=== PATIENT | female | born 1965 | race Caucasian/White ===

== ENCOUNTER 2017-01-19 21:37 | Inpatient (IN) | payer OTHER ==
[2017-01-19] MEDS ORDERED: IPRATROPIUM-ALBUTEROL 3 ML NEB INHALATION STA (22:46)
[2017-01-19] MEDS ORDERED: SODIUM CHLORIDE 0.9% 1,000 ML BAG ONE (22:50)
[2017-01-20] MEDS ORDERED: SODIUM CHLORIDE 0.9% 1,000 ML BAG ONE (03:30)
[2017-01-20] MEDS ORDERED: VANCOMYCIN 1,000 MG VIAL ONE (03:30)
[2017-01-20] MEDS ORDERED: SODIUM CHLORIDE 0.9% 500 ML BAG ONE (03:30)
[2017-01-20] MEDS ORDERED: VANCOMYCIN 500 MG VIAL IVPB ONE (03:30)
[2017-01-20] MEDS ORDERED: IPRATROPIUM-ALBUTEROL 3 ML NEB INHALATION PRN ×2 (05:00→10:44)
[2017-01-20 06:03] LABS: ALT 52 U/L (9-52); AST 38 U/L (14-36); Alkaline Phosphatase 126 U/L (38-126); Anion Gap 15 mmol/L; Blood Urea Nitrogen 11 mg/dL (7-17); Calcium 9.3 mg/dL (8.4-10.2); Carbon Dioxide 25 mmol/L (22-30); Chloride 101 mmol/L (98-107); Glucose 131 mg/dL (74-99); Non-African American GFR(MDRD) >60 (>60 ml/min/1.73 sqM); Potassium 4.3 mmol/L (3.5-5.1); Sodium 141 mmol/L (137-145); Total Bilirubin 0.7 mg/dL (0.2-1.3); Total Protein 8.1 g/dL (6.3-8.2)
[2017-01-20 06:30] LABS: Prothrombin Time 10.3 sec (9.0-12.0)
[2017-01-20] MEDS: LEVOTHYROXINE 100 MCG TAB PO SCH (06:41)
--- NOTE | 2017-01-20 06:41 | XR ---
EXAM: XR Chest, 1 View. CLINICAL HISTORY: Reason: SHORTNESS OF BREATH TECHNIQUE: Frontal view of the chest. COMPARISON: No relevant prior studies available. FINDINGS: Lungs: Diffuse airspace opacities likely representing pulmonary edema versus an inflammatory or infectious process. Consolidation of the left lung base which may represent pleural effusion and atelectasis versus pneumonia. Pleural space: See above. Heart: Unremarkable. No cardiomegaly. Mediastinum: Unremarkable. Bones/joints: Unremarkable. IMPRESSION: 1. Diffuse airspace opacities likely representing pulmonary edema versus an inflammatory or infectious process. 2. Consolidation of the left lung base which may represent pleural effusion and atelectasis versus pneumonia.
[2017-01-20 06:55] LABS: Creatine Kinase 91 U/L (30-135)
[2017-01-20 06:58] LABS: Basophils # (A) 0.1 k/uL (0-0.2); Basophils % (A) 0 %; CH 28.7; CHCM 32.8; Eosinophils # (A) 0.5 k/uL (0-0.7); Eosinophils % (A) 3 %; HCT 38.1 % (34.0-46.0); HDW 2.73; HGB 12.7 gm/dL (11.4-16.0); Luc # (Auto) 0.36; Luc % (Auto) 2; Lymphocytes # (A) 1.9 k/uL (1.0-4.8); Lymphocytes % (A) 11 %; MCH 29.4 pg (25.0-35.0); MCHC 33.3 g/dL (31.0-37.0); MCV 88.2 fL (80.0-100.0); Mean Platelet Volume 7.1; Monocytes % (A) 6 %; Neutrophils # (A) 13.2 k/uL (1.3-7.7); Neutrophils % (A) 78 %; RBC 4.32 m/uL (3.80-5.40); RDW 13.9 % (11.5-15.5); WBC 16.9 k/uL (3.8-10.6); WBC (Perox) 17.19
[2017-01-20 07:01] LABS: Appearance,Urine Clear (Clear); Bilirubin,Urine Negative (Negative); Glucose,Urine (UA) Negative (Negative); Ketones,Urine Negative (Negative); Leukocyte Esterase,Urine Moderate (Negative); Mucus,Urine Rare /hpf; Nitrite,Urine Negative (Negative); Particle Count 4354; Protein,Urine 1+ (Negative); RBC,Urine 2 /hpf (0-5); Specific Gravity,Urine 1.021 (1.001-1.035); Squamous Epithelial Cell,Urine 3 /hpf (0-4); UA Billing (MACRO vs. MICRO) MICRO; WBC,Urine 4 /hpf (0-5)
[2017-01-20 07:08] LABS: Creatine Kinase MB 0.6 ng/mL (0.0-2.4); Troponin I <0.012 ng/mL (0.000-0.034)
[2017-01-20] MEDS ORDERED: IV VANCOMYCIN PER PHARMACY 1 EACH MISC MISCELLANE ONE (07:15)
[2017-01-20] MEDS ORDERED: PIPERACILLIN-TAZOBACTAM 3.375 GM in DEXTROSE/WATER 1 50ML.BAG IVPB SCH (08:00)
[2017-01-20] MEDS ORDERED: VANCOMYCIN 2,000 MG in SODIUM CHLORIDE 0.9% 500 ML IVPB SCH (09:00)
--- NOTE | 2017-01-20 10:39 | XR ---
EXAMINATION TYPE: XR chest 2V DATE OF EXAM: 01/20/2017 10:19 AM HISTORY: Pneumonia. REFERENCE: Previous study dated 01/19/2017. FINDINGS: There is a left lingular and lower lobe opacity. This has worsened from previous. There is patchy airspace disease in the right. The heart is obscured. I could not exclude a small left effusio n. IMPRESSION: WORSENING LEFT-SIDED INFILTRATE.
[2017-01-20] MEDS: IPRATROPIUM-ALBUTEROL 3 ML NEB INHALATION SCH ×3 (12:01→19:52)
[2017-01-20] MEDS: AZITHROMYCIN 500 MG TAB PO SCH (12:08)
[2017-01-20] MEDS: cefTRIAXone 2,000 MG in SODIUM CHLORIDE 0.9% 100 ML IVPB SCH (12:08)
--- NOTE | 2017-01-20 12:10 | HP ---
DATE OF ADMISSION: The patient is a very pleasant 51-year-old female who came in with complaints of shortness of breath, which started about 3 to 4 days ago along with cough, greenish sputum production and fevers and patient never checked her temperature. Patient has orthopnea for long time because of her sleep apnea, does use CPAP machine. Patient does have history of asthma as well, morbidly obese and some restrictive lung disease. Patient was found to have infiltrate on the left side. There may be a pleural effusion with a pneumonic process as well. I am obtaining an ultrasound of the chest because I cannot quantify the pleural effusion from the chest x-ray. Patient denied any dysuria. Patient denied any nausea or vomiting and urinalysis is not significant. Patient was found to have elevated lactic acid as well. Patient is admitted for severe sepsis. Antibiotics were started in the form of Zosyn. I am changing it to Rocephin and azithromycin. Patient will be started on [address] Rueda will be consulted for sleep apnea issue as well as pleural effusion probably will need a pleural tap. In the meantime, I will get an ultrasound of the chest. REVIEW OF SYSTEMS: CONSTITUTIONAL: No fever, no malaise, no fatigue. HEENT: No recent visual problems or hearing problems. Denied any sore throat. CARDIOVASCULAR: No chest pain, orthopnea, PND, no palpitations, no syncope. RESPIRATORY: As described in HPI. GASTROINTESTINAL: No diarrhea, no nausea, no vomiting, no abdominal pain. Normoactive bowel sounds. NEUROLOGICAL: No headaches, no weakness, no numbness. HEMATOLOGICAL: Denies any bleeding or petechiae. GENITOURINARY: Denies any burning micturition, frequency, or urgency. MUSCULOSKELETAL/RHEUMATOLOGICAL: Denies any joint pain, swelling, or any muscle pain. ENDOCRINE: Denies any polyuria or polydipsia. The rest of the 14 point review of systems is negative. Home medications include: 1. Zafirlukast. 2. Loratadine and pseudoephedrine combination. 3. Levothyroxine. 4. Fluticasone salmeterol. 5. Fluticasone nasal spray. 6. Albuterol inhaler. PAST MEDICAL HISTORY: Significant for sleep apnea, morbid obesity, hypothyroidism, and asthma. SOCIAL HISTORY: Denied any smoking, alcohol abuse or any drug abuse. FAMILY HISTORY: Significant for hypertension in family. PHYSICAL EXAMINATION: GENERAL: Morbidly obese. Alert and oriented x3. HEENT: Pupils are round and equally reacting to light. EOMI. No scleral icterus. No conjunctival pallor. Normocephalic, atraumatic. No pharyngeal erythema. No thyromegaly. CARDIOVASCULAR: S1 and S2 present. No murmurs, rubs, or gallops. LUNG EXAMINATION: Patient does have minimal expiratory wheezing bilaterally, fairly good air entry to bilateral lung myers. The patient does have some bronchophony, egophony in the left lower lung field and crackles in the left lower lung field, mostly in the left posterior lung bases. ABDOMEN: Soft, nontender, nondistended, normoactive bowel sounds. No palpable organomegaly. MUSCULOSKELETAL: No joint swelling or deformity. EXTREMITIES: No cyanosis, clubbing, or pedal edema. NEUROLOGICAL: Gross neurological examination did not reveal any focal deficits. SKIN: No rashes. LABORATORY DATA: CBC, CMP are abnormal for elevated WBC count of 16,900. Lactic acid is 2.7, now has come down to 1.0. I will cut down the IV fluids. Chest x-ray as mentioned above. ASSESSMENT AND PLAN: 1. Acute hypoxic respiratory failure secondary to pneumonia with pleural effusion and severe sepsis secondary to pneumonia most probably pneumococcal in origin. Patient is on antibiotics as mentioned above. Patient will be started on inhalational treatments. Patient also has asthma exacerbation secondary to pneumonia. 2. Acute asthma exacerbation. Patient appears to have chronic intermittent asthma. 3. Sleep apnea. Patient stopped using CPAP machine will get opinion from pulmonology regarding the newer CPAP machines with which patient may be complimented at that time. 4. Hypothyroidism. Continue the levothyroxine. I will obtain a TSH level. 5. Obesity counseling was provided. 6. Lactic acidosis secondary to severe sepsis from pneumonia. Since her lactic acidosis improved, will cut down the IV fluids to 75 mL per hour. I am also obtaining BNP but I do not believe patient has congestive heart failure. The patient does not have any pedal edema or JVD or S3 on exam. Chest x-ray is not consistent with congestive heart failure either.
[2017-01-20] MEDS ORDERED: ACETAMINOPHEN TAB 325 MG TAB PO PRN (12:14)
[2017-01-20] MEDS: SODIUM CHLORIDE 0.9% 1,000 ML IV SCH (12:33)
--- NOTE | 2017-01-20 12:41 | P.CNPUL ---
History of Present Illness Consult date: 01/20/17 Requesting physician: Randi Yanes Reason for consult: dyspnea, abnormal CXR/CT Chief complaint: Shortness of breath History of present illness: This is a very pleasant 51-year-old female patient who follows with Dr. husain while at [address] [place] [address]. The patient resides in [place]. She has a past medical history of hypothyroidism, morbid obesity, chronic bronchial asthma , obstructive sleep apnea but not compliant with her CPAP at home to the old fitting mask. Her last sleep study was approximate 5 years ago. She is maintained on Singulair, Claritin, Accolate, Advair and albuterol in the outpatient setting. She is a lifelong nonsmoker. She states for the past several days she had had increasing shortness of breath and dyspnea with minimal exertion. She has had a cough of greenish yellow sputum. No hemoptysis. No fever, chills or night sweats. She has been afebrile. Her chest x-ray revealed diffuse airspace opacities suggestive of pulmonary edema versus inflammatory/infectious process. There is also consolidation in the left lung base suspicious for either pleural effusion or atelectasis/pneumonia. An ultrasound of the left chest is pending. Maintaining good O2 saturations in the 90s on 2 L/m per nasal cannula. Minimal leukocytosis at 16.9. Initial lactic acid 2.7 currently 1.0. ProBNP level 114, her influenza screen is negative. Group A rapid strep is negative. Presently, she is seen sitting up in bed. She is awake and alert in no acute distress. She states she is still quite dyspneic on minimal exertion. No significant chest discomfort. No pleuritic type pain. Review of Systems 14 point review of systems was conducted. All negative other than as mentioned in the HPI. Past Medical History Past Medical History: Asthma, Sleep Apnea/CPAP/BIPAP (Noncompliant with CPAP due to ill-fitting mask.), Thyroid Disorder Medications and Allergies Home Medications Medication Instructions Recorded Confirmed Type Albuterol Inhaler [Ventolin Hfa 2 puff INHALATION RT-Q6H PRN 01/19/17 01/19/17 History Inhaler] Albuterol Nebulized [Ventolin 2.5 mg INHALATION RT-Q6H PRN 01/19/17 01/19/17 History Nebulized] Fluticasone Nasal [place] [Flonase 1 spray EA NOSTRIL DAILY 01/19/17 01/19/17 History Nasal [place]] Fluticasone/Salmeterol [Advair 1 puff INHALATION RT-BID 01/19/17 01/19/17 History 500-50 Diskus] Levothyroxine Sodium [Synthroid] 200 mcg PO DAILY 01/19/17 01/19/17 History Loratadine-Pseudoeph 5-120 mg 1 tab PO DAILY 01/19/17 01/19/17 History [Claritin-D 12 HR] Zafirlukast 20 mg PO BID 01/19/17 01/19/17 History Allergies Allergy/AdvReac Type Severity Reaction Status Date / Time egg AdvReac Unknown Verified 01/19/17 22:26 milk AdvReac Unknown Verified 01/19/17 22:26 Physical Exam Vitals: Vital Signs Temp Pulse Pulse Resp BP Pulse Ox 01/20/17 12:10 92 01/20/17 12:02 86 01/20/17 08:00 86 16 01/20/17 07:00 97.7 F 86 16 115/78 94 L 01/20/17 06:07 100 01/20/17 06:00 100 Intake and Output 01/19/17 01/20/17 01/20/17 22:59 06:59 14:59 Intake Total 290 Balance 290 Intake: Intake, IV Titration 50 Amount Piperacillin-Tazobactam 3 50 .375 gm In Dextrose/Water 1 50ml.bag @ 12.5 mls/hr IVPB Q8HR [facility] Rx#: [id number] Oral 240 Other: Voiding Method Toilet # Voids 2 2 Weight 141 kg 139.281 kg Patient Weight 01/21/17 06:59 Weight 139.281 kg GENERAL EXAM: Morbidly obese. Alert, comfortable in no apparent distress. HEAD: Normocephalic. EYES: Normal reaction of pupils, equal size. NOSE: Clear with pink turbinates. THROAT: No erythema or exudates. NECK: No masses, no JVD. CHEST: No chest wall deformity. LUNGS: Equal air entry with basilar crackles more so on the left, diminished.r. CVS: S1 and S2 normal with no audible mumurs, regular rhythm. ABDOMEN: Obese, normal bowel sounds, no guarding or rigidity. SPINE: No scoliosis or deformity SKIN: No rashes CENTRAL NERVOUS SYSTEM: No focal deficits, tone is normal in all 4 extremities. Extremities: There is trace peripheral edema. No clubbing, no cyanosis. Peripheral pulses are intact. Results - Laboratory Findings CBC and BMP: 01/19/17 22:40 01/19/17 22:40 PT/INR, D-dimer PT 10.3 sec (9.0-12.0) 01/19/17 22:40 INR 1.0 (<1.1) 01/19/17 22:40 - Diagnostic Findings Chest x-ray: image reviewed Assessment and Plan Plan: Impression: #1 Dyspnea secondary to suspected community-acquired pneumonia with reactive inflammatory response and left pleural effusion. #2 Acute exacerbation of moderate persistent chronic bronchial asthma. #3 Acute hypoxic respiratory failure secondary to above. #4 Obstructive sleep apnea with obesity/hypoventilation syndrome, noncompliant with CPAP in the outpatient setting. #5 Morbid obesity. #6 Hypothyroidism. #7 Lactic acidosis, recovered status post fluid resuscitation. Plan: The patient was seen and evaluated by Dr. Rueda. Her chest x-ray and labs were reviewed. There may be some component of left pleural effusion and we are awaiting ultrasound results to determine if it is significant enough to undergo a thoracentesis. In the interim we'll continue with her current antibiotics, bronchodilators, Symbicort and Singulair. She remains on antibiotics in the form of ceftriaxone and azithromycin. We will provide her with an incentive spirometer and encourage cough and deep breathing exercises. The patient is offered an appointment with Dr. Ray at the sleep [facility] to either undergo a sleep titration study and to evaluate her current CPAP machine and headgear and find some that she is more comfortable with. She definitely has clinical features of the obstructive sleep apnea including suspected obesity/ hypoventilation syndrome and restrictive lung disease. She is encouraged regarding the importance of weight loss. She would benefit from pulmonary function testing to evaluate these and determine the severity of her asthma and make further recommendations regarding maintenance medications. Will increase her activity as tolerated. We'll continue to follow. Time with Patient: Greater than 30
--- NOTE | 2017-01-20 13:33 | US ---
EXAMINATION TYPE: US chest DATE OF EXAM: 01/20/2017 1:25 PM COMPARISON: CXR in PACS CLINICAL HISTORY: right side pleural effusion. No significant fluid was noted on the right. EXAM MEASUREMENTS: Left Pleural Effusion fluid pocket: 2.9 cm Left skin to fluid thickness: 5.9 cm Left side marked for possible thoracentesis outside the dept. Pulmonologists are able to review the images in the patient?s EMR. Large pt body habitus IMPRESSIONS: MINIMAL LEFT-SIDED PLEURAL EFFUSION.
[2017-01-20] MEDS: SYMBICORT 160-4.5 MCG INHALER INHALATION SCH (19:52)
[2017-01-20] MEDS ORDERED: MONTELUKAST 10 MG TAB PO SCH (21:00)
[2017-01-21] MEDS: SODIUM CHLORIDE 0.9% 1,000 ML IV SCH (04:01)
[2017-01-21] MEDS: LEVOTHYROXINE 100 MCG TAB PO SCH (06:08)
[2017-01-21] MEDS: IPRATROPIUM-ALBUTEROL 3 ML NEB INHALATION SCH ×2 (07:20→10:56)
[2017-01-21] MEDS: SYMBICORT 160-4.5 MCG INHALER INHALATION SCH (07:20)
[2017-01-21 07:32] VITALS: BP 148/95; RESP 18; TEMP 97.1
[2017-01-21 07:35] LABS: Glucose,Whole Blood 102 mg/dL (75-99)
[2017-01-21] MEDS: cefTRIAXone 2,000 MG in SODIUM CHLORIDE 0.9% 100 ML IVPB SCH (07:46)
[2017-01-21] MEDS ORDERED: VANCOMYCIN TROUGH DUE 1 EACH MISC MISCELLANE ONE (08:00)
[2017-01-21] MEDS: AZITHROMYCIN 500 MG TAB PO SCH (08:28)
[2017-01-21] MEDS ORDERED: NON-FORMULARY DRUG (Levothyroxine Sodium [Synthroid] 200 MCG) PO SCH (09:00)
[2017-01-21 10:59] VITALS: PULSE 88
--- NOTE | 2017-01-21 11:40 | P.PN ---
Subjective This is a very pleasant 51-year-old female patient who follows with Dr. husain while at [address]. The patient resides in [place]. She has a past medical history of hypothyroidism, morbid obesity, chronic bronchial asthma , obstructive sleep apnea but not compliant with her CPAP at home to the old fitting mask. Her last sleep study was approximate 5 years ago. She is maintained on Singulair, Claritin, Accolate, Advair and albuterol in the outpatient setting. She is a lifelong nonsmoker. She states for the past several days she had had increasing shortness of breath and dyspnea with minimal exertion. She has had a cough of greenish yellow sputum. No hemoptysis. No fever, chills or night sweats. She has been afebrile. Her chest x-ray revealed diffuse airspace opacities suggestive of pulmonary edema versus inflammatory/infectious process. There is also consolidation in the left lung base suspicious for either pleural effusion or atelectasis/pneumonia. An ultrasound of the left chest is pending. Maintaining good O2 saturations in the 90s on 2 L/m per nasal cannula. Minimal leukocytosis at 16.9. Initial lactic acid 2.7 currently 1.0. ProBNP level 114, her influenza screen is negative. Group A rapid strep is negative. Presently, she is seen sitting up in bed. She is awake and alert in no acute distress. She states she is still quite dyspneic on minimal exertion. No significant chest discomfort. No pleuritic type pain. The patient is seen again today 01/21/2017 in follow-up on the regular medical floor. She is awake and alert in no acute distress. She is breathing easier today as compared to yesterday. Yesterday's ultrasound of the chest did not reveal any significant pleural effusion. No plans for thoracentesis. She is maintaining good O2 saturations in the high 90s on 2 L/m per nasal cannula. She has been afebrile. Objective - Vital Signs Vital signs: Vital Signs Temp 97.1 F L 01/21/17 07:00 Pulse 88 01/21/17 11:07 Resp 18 01/21/17 08:00 BP 148/95 01/21/17 07:00 Pulse Ox 97 01/21/17 07:22 Intake & Output 01/20/17 01/21/17 01/21/17 18:59 06:59 18:59 Intake Total 990 1025 480 Balance 990 1025 480 Weight 139.281 kg 139.281 kg Intake: Intake, IV Titration 750 825 Amount Piperacillin-Tazobactam 3 50 .375 gm In Dextrose/Water 1 50ml.bag @ 12.5 mls/hr IVPB Q8HR [facility] Rx#: [id number] Sodium Chloride 0.9% 1, 450 825 000 ml @ 75 mls/hr IV . [id number] [facility] Rx#:[id number] Vancomycin 2,000 mg In 150 Sodium Chloride 0.9% 500 ml @ 167 mls/hr IVPB Q12HR [facility] Rx#:[id number] cefTRIAXone 2,000 mg In 100 Sodium Chloride 0.9% 100 ml @ 100 mls/hr IVPB Q24HR [facility] Rx#:[id number] Oral 240 200 480 Other: Voiding Method Toilet Toilet Toilet # Voids 6 3 3 # Bowel Movements 1 - Exam GENERAL EXAM: Morbidly obese. Alert, comfortable in no apparent distress. HEAD: Normocephalic. EYES: Normal reaction of pupils, equal size. NOSE: Clear with pink turbinates. THROAT: No erythema or exudates. NECK: No masses, no JVD. CHEST: No chest wall deformity. LUNGS: Equal air entry with basilar crackles more so on the left, diminished.r. CVS: S1 and S2 normal with no audible mumurs, regular rhythm. ABDOMEN: Obese, normal bowel sounds, no guarding or rigidity. SPINE: No scoliosis or deformity SKIN: No rashes CENTRAL NERVOUS SYSTEM: No focal deficits, tone is normal in all 4 extremities. Extremities: There is trace peripheral edema. No clubbing, no cyanosis. Peripheral pulses are intact. - Labs CBC & Chem 7: 01/19/17 22:40 01/19/17 22:40 Labs: Abnormal Lab Results - Last 24 Hours (Table) 01/21/17 Range/Units 07:34 POC Glucose (mg/dL) 102 H (75-99) mg/dL Assessment and Plan Plan: Impression: #1 Dyspnea secondary to suspected community-acquired pneumonia with reactive inflammatory response and left pleural effusion. #2 Acute exacerbation of moderate persistent chronic bronchial asthma. #3 Acute hypoxic respiratory failure secondary to above. #4 Obstructive sleep apnea with obesity/hypoventilation syndrome, noncompliant with CPAP in the outpatient setting. #5 Morbid obesity. #6 Hypothyroidism. #7 Lactic acidosis, recovered status post fluid resuscitation. Plan: The patient was seen and evaluated by Dr. Rueda. She is stable from the pulmonary standpoint. She could be discharged home later today after being evaluated for possible need for home oxygen. If she maintains O2 saturations greater than 88% O2 would not be required. She'll complete her course of antibiotics. Continue Symbicort, Singulair and albuterol. She is offered an appointment in our office in 1-2 weeks' time we can repeat a chest x-ray then. She is however encouraged to call sooner with any recurrence of symptoms or any other questions or concerns.
--- NOTE | 2017-01-22 12:05 | DS ---
DATE OF ADMISSION: 01/20/2017 DATE OF DISCHARGE: 01/21/2017 This dictation is both progress note and discharge summary. 51-year-old admitted for left lower lobe pneumonia with parapneumonic effusion along with asthma exacerbation. Patient does have sleep apnea and also restrictive lung disease from morbid obesity. The patient is clinically doing well. We will ambulate the patient and if the patient is saturating well and does not get short of breath, patient will be discharged with one week of antibiotics. Patient has elevated TSH and normal T4. Patient is already on 200 mcg of levothyroxine. Patient may have sick euthyroid syndrome. We will need repeat TSH as an outpatient. REVIEW OF SYSTEMS: CARDIOVASCULAR: No chest pain, no orthopnea, no PND, no palpitations. PULMONARY: Denied any shortness of breath. No cough or hemoptysis. GASTROINTESTINAL: No diarrhea, nausea or vomiting. No abdominal pain. Normoactive bowel sounds. NEUROLOGIC: No headaches, no weakness, no numbness. Medications were reviewed. PHYSICAL EXAMINATION: Temperature 97.1, pulse of 88, respiratory rate of 18, blood pressure is 148/75, saturating at 97% on room air. GENERAL: The patient is alert and oriented x3, not in any acute distress. Well developed, well nourished. HEENT: Pupils are round and equally reacting to light. EOMI. No scleral icterus. No conjunctival pallor. Normocephalic, atraumatic. No pharyngeal erythema. No thyromegaly. CARDIOVASCULAR: S1 and S2 present. No murmurs, rubs, or gallops. PULMONARY: Patient continues to have bronchophony, egophony in the left lower lung field and patient's wheezing completely resolved at this point of time. ABDOMEN: Soft, nontender, nondistended, normoactive bowel sounds. No palpable organomegaly. MUSCULOSKELETAL: No joint swelling or deformity. EXTREMITIES: No cyanosis, clubbing, or pedal edema. NEUROLOGICAL: Gross neurological examination did not reveal any focal deficits. SKIN: No rashes. LABORATORY DATA: None available from today. ASSESSMENT AND PLAN: 1. Acute hypoxic respiratory failure secondary to pneumonia, parapneumonic effusion and fevers secondary to pneumonia. Patient's lactic acidosis, resolved. 2. Acute asthma exacerbation. Patient probably has chronic intermittent asthma. 3. Sleep apnea. Patient will follow with Dr. Rueda as an outpatient and will get another sleep study and her machine will be changed then. 4. Hypothyroidism with sick euthyroid syndrome presently. 5. Obesity leading to restrictive lung disease. 6. Lactic acidosis secondary to severe sepsis, which improved. Her discharge depends on her performance upon ambulation. Please refer to my depart summary for details of discharge medications. Activity as tolerated and patient will follow with Dr. Rueda in about a week. Cardiac diet. I spent greater than 35 minutes in total discharge process.
== END 2017-01-21 12:35 | disposition home or self-care (01) | DRG 871 ==
LOC: EC 21:37 → 5MS5E 01-20 00:18
PROVIDERS: ADMIT Hospitalist; ATTEND Hospitalist
DX: A41.9 Sepsis, unspecified organism (principal); J96.01 Acute respiratory failure with hypoxia; E87.2 Acidosis; J91.8 Pleural effusion in other conditions classified elsewhere; J18.9 Pneumonia, unspecified organism; J45.21 Mild intermittent asthma with (acute) exacerbation; E66.2 Morbid (severe) obesity with alveolar hypoventilation; Z68.43 Body mass index [BMI] 50.0-59.9, adult; R65.20 Severe sepsis without septic shock; R00.0 Tachycardia, unspecified; E07.81 Sick-euthyroid syndrome; E03.9 Hypothyroidism, unspecified; J98.4 Other disorders of lung; Z82.49 Family history of ischemic heart disease and other diseases of the circulatory system; Z91.012 Allergy to eggs; Z91.011 Allergy to milk products; Z71.3 Dietary counseling and surveillance; Z91.19 Patient's noncompliance with other medical treatment and regimen; Z90.710 Acquired absence of both cervix and uterus; Z63.79 Other stressful life events affecting family and household; Z79.51 Long term (current) use of inhaled steroids; Z79.899 Other long term (current) drug therapy
CPT/HCPCS: 71010; 71020; 76604; 80053; 81001; 82550; 82553; 83605; 83735; 83880; 84439; 84443; 84484; 85025; 85610; 87040; 87081; 87430; 87502; 94640; 94760; 96361; 96374; 99285

== ENCOUNTER 2017-03-18 08:20 | Inpatient (IN) | payer OTHER ==
[2017-03-18] MEDS ORDERED: SODIUM CHLORIDE 0.9% 500 ML IV STA (08:28)
[2017-03-18] MEDS ORDERED: ACETAMINOPHEN TAB 500 MG TAB PO STA (08:28)
[2017-03-18] MEDS ORDERED: SODIUM CHLORIDE 0.9% 1,000 ML IV STA (08:28)
[2017-03-18] MEDS ORDERED: cefTRIAXone 2,000 MG in SODIUM CHLORIDE 0.9% 100 ML IVPB STA (08:28)
[2017-03-18] MEDS ORDERED: SODIUM CHLORIDE 0.9% 1,000 ML IV ONE (08:32)
[2017-03-18] MEDS ORDERED: ONDANSETRON 4 MG/2 ML VIAL IVP STA (08:46)
[2017-03-18] MEDS ORDERED: ACETAMINOPHEN IV (For NPO) 1,000 MG in EMPTY BAG 1 BAG IVPB ONE (08:50)
[2017-03-18 09:04] LABS: CH 29.1; CHCM 33.7; HCT 38.2 % (34.0-46.0); HDW 2.69; MCH 29.6 pg (25.0-35.0); MCHC 34.1 g/dL (31.0-37.0); MCV 86.8 fL (80.0-100.0); Mean Platelet Volume 7.4; RBC 4.39 m/uL (3.80-5.40); RDW 14.3 % (11.5-15.5); WBC (Perox) 26.34
[2017-03-18 09:05] LABS: WBC 25.3 k/uL (3.8-10.6)
[2017-03-18 09:27] LABS: Appearance,Urine Clear (Clear); Bilirubin,Urine Negative (Negative); Glucose,Urine (UA) Negative (Negative); Ketones,Urine Negative (Negative); Leukocyte Esterase,Urine Negative (Negative); Nitrite,Urine Negative (Negative); Protein,Urine Negative (Negative); Specific Gravity,Urine 1.014 (1.001-1.035); UA Billing (MACRO vs. MICRO) CHEM; Urobilinogen,Urine <2.0 mg/dL (<2.0)
[2017-03-18] MEDS ORDERED: VANCOMYCIN 2,000 MG in SODIUM CHLORIDE 0.9% 500 ML IVPB STA (09:33)
--- NOTE | 2017-03-18 09:57 | XR ---
EXAMINATION TYPE: XR chest 1V portable DATE OF EXAM: 03/18/2017 COMPARISON: Chest x-ray January 20, 2017. HISTORY: Fever. TECHNIQUE: Single AP portable frontal upright view of the chest is obtained. FINDINGS: Exam is suboptimal secondary to artifact from overlying cooling blanket and patient's body habitus. In addition patient is rotated to right of midline. Low lung volumes are present. No suspici ous focal airspace opacity, pleural effusion, or pneumothorax is seen. Cardiomegaly is present. Visua lized osseous structures are intact. IMPRESSION: Suboptimal study, low lung volumes and cardiomegaly without suspicious acute pulmonary p rocess.
[2017-03-18 10:02] LABS: Add Differential Manual Differential
[2017-03-18 10:04] LABS: Nucleated Red Blood Cells 0 /100 WBC (0-0); Polychromasia Present; Total Cells Counted 100
[2017-03-18 10:27] LABS: ALT 27 U/L (9-52); AST 34 U/L (14-36); Alkaline Phosphatase 90 U/L (38-126); Anion Gap 12 mmol/L; Blood Urea Nitrogen 10 mg/dL (7-17); Calcium 9.2 mg/dL (8.4-10.2); Carbon Dioxide 20 mmol/L (22-30); Chloride 104 mmol/L (98-107); Glucose 128 mg/dL (74-99); Non-African American GFR(MDRD) >60 (>60 ml/min/1.73 sqM); Sodium 136 mmol/L (137-145); Total Bilirubin 1.8 mg/dL (0.2-1.3); Total Protein 7.7 g/dL (6.3-8.2)
[2017-03-18] MEDS ORDERED: IBUPROFEN 600 MG TAB PO STA (11:04)
--- NOTE | 2017-03-18 11:07 | ED ---
Fever HPI - General Chief Complaint: Fever Stated Complaint: vomiting/abdominal pain Time Seen by Provider: 03/18/17 08:32 Source: patient Mode of arrival: wheelchair Limitations: no limitations - History of Present Illness Initial Comments: Given years old female presents with weakness: On for 2 days, high fever or fever started yesterday she was quite hot and cold last night him denies any headache no neck stiffness denies any cough in 9 or bringing up any phlegm denies any abdominal pain no frequency urgency dysuria area denies any chest pain no shortness of breath arrival she was quite confused after at that point had her temperature was 104 once the temperature got better then now just GCS was 15 - Related Data Home Medications Medication Instructions Recorded Confirmed Albuterol Inhaler [Ventolin Hfa 2 puff INHALATION RT-Q6H PRN 01/19/17 03/18/17 Inhaler] Albuterol Nebulized [Ventolin 2.5 mg INHALATION RT-Q4H PRN 01/19/17 03/18/17 Nebulized] Fluticasone Nasal [place] [Flonase 1 spray EA NOSTRIL DAILY 01/19/17 03/18/17 Nasal [place]] Fluticasone/Salmeterol [Advair 1 puff INHALATION RT-BID 01/19/17 03/18/17 500-50 Diskus] Levothyroxine Sodium [Synthroid] 200 mcg PO DAILY 01/19/17 03/18/17 Loratadine-Pseudoeph 5-120 mg 1 tab PO DAILY 01/19/17 03/18/17 [Claritin-D 12 HR] Zafirlukast 20 mg PO BID 01/19/17 03/18/17 PARoxetine [Paxil] 40 mg PO DAILY 03/18/17 03/18/17 Allergies Allergy/AdvReac Type Severity Reaction Status Date / Time egg AdvReac Unknown Verified 03/18/17 11:19 milk AdvReac Unknown Verified 03/18/17 11:19 Review of Systems ROS Statement: Those systems with pertinent positive or pertinent negative responses have been documented in the HPI. ROS Other: All systems not noted in ROS Statement are negative. Past Medical History Past Medical History: Asthma, Sleep Apnea/CPAP/BIPAP, Thyroid Disorder History of Any Multi-Drug Resistant Organisms: None Reported Past Surgical History: Bladder Surgery, Hysterectomy Past Psychological History: No Psychological Hx Reported Smoking Status: Never smoker Past Alcohol Use History: None Reported Past Drug Use History: None Reported General Exam - General Exam Comments Initial Comments: General: The patient is awake and alert, is quite term altered mentally not able to answer any questions clearly and hollering for help and is saying repeatedly that I don't feel right Skin: Skin is warm and dry and no rashes or lesions are noted. Eye: Pupils are equal, round and reactive to light, extra-ocular movements are intact; there is normal conjunctiva bilaterally. Ears, nose, mouth and throat: There are moist mucous membranes and no oral lesions. Neck: The neck is supple, there is no tenderness Cardiovascular: There is a regular rate and rhythm. No murmur, rub or gallop is appreciated. Respiratory: To auscultation bilateral, no wheezing noticed, crackles at the bases Gastrointestinal: Soft, non-distended, non-tender abdomen without masses or organomegaly noted. There is no rebound or guarding present. Bowel sounds are unremarkable. Back: There is no tenderness to palpation in the midline. There is no obvious deformity. Musculoskeletal: Normal ROM, no tenderness, There is no pedal edema. There is no calf tenderness or swelling. No cords were appreciated. Neurological: CN II-XII intact, Cranial nerves III through XII are intact. There are no obvious motor or sensory deficits. Coordination appears grossly intact. Speech is normal. Psychiatric: Cooperative, appropriate mood & affect, normal judgment. He was quite confused on arrival at this time and her temperature was 104 after she got some Tylenol and fluids and GCS cleared up to 15 Limitations: no limitations Course Vital Signs 03/18/17 03/18/17 03/18/17 08:22 10:12 12:00 Temperature 104 F H 101.4 F H 98.8 F Pulse Rate 144 H 121 H 114 H Respiratory 22 20 18 Rate Blood Pressure 136/75 124/56 105/57 O2 Sat by Pulse 96 95 96 Oximetry 03/18/17 03/18/17 15:00 16:08 Temperature 97.8 F Pulse Rate 114 H Respiratory 18 Rate Blood Pressure 96/50 O2 Sat by Pulse 95 Oximetry CSF report was reviewed, noticed nucleated red cells were greater than 5 that makes the abnormal cell count, I plan to keep her on Vanco as directed by pharmacy as well as Rocephin 2 g IV twice a day 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 Hardy - Reevaluation(s) Reevaluation #2: 03/18/17 14:08 She developed time headache along with a fever this time and I decided he wanted to LP head CT is early normal white count is quite elevated this is to rule out bacterial meningitis 03/18/17 16:[address] Hardy about the plan of Rocephin and ankle he is okay with that we'll consult Dr. Perea infectious disease for possible meningitis Procedures - Lumbar Puncture Time Out Performed: Yes Indication for Procedure: headache, change in mental status Patient Position: right lateral decubitus Local Anesthetic Used: Lidocaine 1% Spinal Needle Gauge: 22G Spinal Needle Length: 3in Interspace Used: L4-L5 Fluid Initially Obtained: clear (Centering patient s headache LP was done, patient tolerated the procedure well there were no palpitations) Medical Decision Making - Lab Data Result diagrams: 03/18/17 08:42 03/18/17 08:42 Lab Results 03/18/17 03/18/17 03/18/17 Range/Units 08:42 08:42 08:42 WBC 25.3 H* (3.8-10.6) k/uL RBC 4.39 (3.80-5.40) m/uL Hgb 13.0 (11.4-16.0) gm/dL Hct 38.2 (34.0-46.0) % MCV 86.8 (80.0-100.0) fL MCH 29.6 (25.0-35.0) pg MCHC 34.1 (31.0-37.0) g/dL RDW 14.3 (11.5-15.5) % Plt Count 274 (150-450) k/uL Neutrophils % (Manual) 81.0 % Band Neutrophils % 1.0 % Lymphocytes % (Manual) 11.0 % Monocytes % (Manual) 5.0 % Eosinophils % (Manual) 2.0 % Neutrophils # (Manual) 20.7 H (1.3-7.7) k/uL Lymphocytes # (Manual) 2.8 (1.0-4.8) k/uL Monocytes # (Manual) 1.3 H (0-1.0) k/uL Eosinophils # (Manual) 0.5 (0-0.7) k/uL Nucleated RBCs 0 (0-0) /100 WBC Polychromasia Present Sodium 136 L (137-145) mmol/L Potassium 4.0 (3.5-5.1) mmol/L Chloride 104 (98-107) mmol/L Carbon Dioxide 20 L (22-30) mmol/L Anion Gap 12 mmol/L BUN 10 (7-17) mg/dL Creatinine 0.66 (0.52-1.04) mg/dL Est GFR (MDRD) Af Amer >60 (>60 ml/min/1.73 sqM) Est GFR (MDRD) Non-Af >60 (>60 ml/min/1.73 sqM) Glucose 128 H (74-99) mg/dL Plasma Lactic Acid Mic 3.0 H* (0.7-2.0) mmol/L Calcium 9.2 (8.4-10.2) mg/dL Total Bilirubin 1.8 H (0.2-1.3) mg/dL AST 34 (14-36) U/L ALT 27 (9-52) U/L Alkaline Phosphatase 90 (38-126) U/L Total Protein 7.7 (6.3-8.2) g/dL Albumin 4.1 (3.5-5.0) g/dL Urine Color Urine Appearance (Clear) Urine pH (5.0-8.0) Ur Specific [place] (1.001-1.035) Urine Protein (Negative) Urine Glucose (UA) (Negative) Urine Ketones (Negative) Urine Blood (Negative) Urine Nitrite (Negative) Urine Bilirubin (Negative) Urine Urobilinogen (<2.0) mg/dL Ur Leukocyte Esterase (Negative) CSF Tube Number CSF Volume CSF Appearance CSF Color CSF RBC (0-10) u/L CSF Tot Nucleated Cells (0-5) u/L CSF Glucose (40-70) mg/dL 03/18/17 03/18/17 03/18/17 Range/Units 08:55 12:27 14:10 WBC (3.8-10.6) k/uL RBC (3.80-5.40) m/uL Hgb (11.4-16.0) gm/dL Hct (34.0-46.0) % MCV (80.0-100.0) fL MCH (25.0-35.0) pg MCHC (31.0-37.0) g/dL RDW (11.5-15.5) % Plt Count (150-450) k/uL Neutrophils % (Manual) % Band Neutrophils % % Lymphocytes % (Manual) % Monocytes % (Manual) % Eosinophils % (Manual) % Neutrophils # (Manual) (1.3-7.7) k/uL Lymphocytes # (Manual) (1.0-4.8) k/uL Monocytes # (Manual) (0-1.0) k/uL Eosinophils # (Manual) (0-0.7) k/uL Nucleated RBCs (0-0) /100 WBC Polychromasia Sodium (137-145) mmol/L Potassium (3.5-5.1) mmol/L Chloride (98-107) mmol/L Carbon Dioxide (22-30) mmol/L Anion Gap mmol/L BUN (7-17) mg/dL Creatinine (0.52-1.04) mg/dL Est GFR (MDRD) Af Amer (>60 ml/min/1.73 sqM) Est GFR (MDRD) Non-Af (>60 ml/min/1.73 sqM) Glucose (74-99) mg/dL Plasma Lactic Acid Mic 1.6 (0.7-2.0) mmol/L Calcium (8.4-10.2) mg/dL Total Bilirubin (0.2-1.3) mg/dL AST (14-36) U/L ALT (9-52) U/L Alkaline Phosphatase (38-126) U/L Total Protein (6.3-8.2) g/dL Albumin (3.5-5.0) g/dL Urine Color Yellow Urine Appearance Clear (Clear) Urine pH 5.0 (5.0-8.0) Ur Specific [place] 1.014 (1.001-1.035) Urine Protein Negative (Negative) Urine Glucose (UA) Negative (Negative) Urine Ketones Negative (Negative) Urine Blood Negative (Negative) Urine Nitrite Negative (Negative) Urine Bilirubin Negative (Negative) Urine Urobilinogen <2.0 (<2.0) mg/dL Ur Leukocyte Esterase Negative (Negative) CSF Tube Number 4 CSF Volume 1.0 CSF Appearance Clear CSF Color Colorless CSF RBC 0 (0-10) u/L CSF Tot Nucleated Cells 6 H (0-5) u/L CSF Glucose 77 H (40-70) mg/dL Critical Care Time Total Critical Care Time: 30 Critical Care Time: On arrival his temperature was greater than 104 she had a clear decreased mentation or change in mental status he was not able to answer any questions clearly of fluids resuscitation was done a septic workup was for workup was started strong antibiotics were started right away, she'll definitely need admission at this point she is not a candidate for LP her mentation is GCS is 15 no neck stiffness, she had a pruritic him Rocephin 2 g IV along with the flank oh - IV brain CT is pending at this point if indicated will proceed with the lumbar puncture Disposition Clinical Impression: Fever, Change in mental status, Sepsis, Headache Disposition: ADMITTED IP TO THIS HOSP Referrals: Nonstaff,Physician [Primary Care Provider] - 1-2 days
--- NOTE | 2017-03-18 11:37 | CT ---
EXAMINATION TYPE: CT brain wo con DATE OF EXAM: 03/18/2017 HISTORY: Nauseated and vomiting CT DLP: 963.6 mGycm. Automated Exposure Control for Dose Reduction was Utilized. TECHNIQUE: CT scan of the head is performed without contrast. COMPARISON: None. FINDINGS: There is no acute intracranial hemorrhage or midline shift identified. Ventricles and sul ci are within normal limits in size. العلي-white matter differentiation is maintained. The globes are intact bilaterally. There is moderate mucosal thickening involving ethmoid sinuses bilaterally. The re is mild to moderate mucosal thickening involving bilateral sphenoid and inferior maxillary sinuses . There are nonformed frontal sinuses noted bilaterally. IMPRESSION: No acute intracranial hemorrhage or midline shift. Chronic paranasal sinus disease.
[2017-03-18 15:37] LABS: Glucose,CSF 77 mg/dL (40-70)
[2017-03-18 15:40] LABS: Appearance,CSF Clear
[2017-03-18] MEDS ORDERED: NALOXONE 0.4 MG/ML 1 ML VIAL IV PRN (16:31)
[2017-03-18] MEDS ORDERED: IBUPROFEN 600 MG TAB PO PRN (16:31)
[2017-03-18] MEDS ORDERED: HYDROmorphone 1 MG/ML 1 ML SYRINGE IV PRN (16:31)
[2017-03-18] MEDS ORDERED: IV VANCOMYCIN PER PHARMACY 1 EACH MISC MISCELLANE PRN (16:39)
[2017-03-18] MEDS: ACETAMINOPHEN TAB 500 MG TAB PO PRN (18:28)
[2017-03-18] MEDS ORDERED: ALBUTEROL INHALER 60 PUFF/8 GM INHALER INHALATION PRN (20:12)
[2017-03-18] MEDS ORDERED: TEMAZEPAM 15 MG CAP PO PRN (20:15)
[2017-03-18] MEDS: VANCOMYCIN 2,000 MG in SODIUM CHLORIDE 0.9% 500 ML IVPB SCH (20:22)
[2017-03-18] MEDS: cefTRIAXone 2,000 MG in SODIUM CHLORIDE 0.9% 100 ML IVPB SCH (20:22)
[2017-03-18] MEDS: MONTELUKAST 10 MG TAB PO SCH (22:25)
[2017-03-18] MEDS: PARoxetine 20 MG TAB PO SCH (22:26)
[2017-03-18] MEDS: ALBUTEROL NEBULIZED 2.5 MG/3 ML INHALATION PRN (22:48)
[2017-03-18] MEDS ORDERED: ALPRAZolam 0.25 MG TAB PO PRN (23:52)
[2017-03-18] MEDS: FLUTICASONE 50MCG/SPRAY NASAL 16GM EA NOSTRIL SCH (23:57)
[2017-03-19] MEDS: ACETAMINOPHEN TAB 500 MG TAB PO PRN ×5 (01:30→23:50)
[2017-03-19] MEDS: ALBUTEROL NEBULIZED 2.5 MG/3 ML INHALATION PRN ×5 (03:29→21:23)
[2017-03-19] MEDS: HEPARIN SODIUM,PORCINE 5,000 UNIT/ML 1 ML VIAL SQ SCH ×3 (04:51→20:36)
[2017-03-19] MEDS: PANTOPRAZOLE 40 MG TABLET PO SCH (06:09)
[2017-03-19] MEDS: VANCOMYCIN 2,000 MG in SODIUM CHLORIDE 0.9% 500 ML IVPB SCH ×2 (06:09→17:53)
[2017-03-19] MEDS: LEVOTHYROXINE 100 MCG TAB PO SCH (06:10)
[2017-03-19 06:43] LABS: CH 28.6; CHCM 32.7; HCT 36.2 % (34.0-46.0); HDW 2.76; HGB 12.2 gm/dL (11.4-16.0); MCH 29.6 pg (25.0-35.0); MCHC 33.6 g/dL (31.0-37.0); Mean Platelet Volume 7.4; RBC 4.11 m/uL (3.80-5.40); RDW 14.3 % (11.5-15.5); WBC (Perox) 39.59
[2017-03-19 06:54] LABS: WBC 36.1 k/uL (3.8-10.6)
--- NOTE | 2017-03-19 07:24 | XR ---
EXAMINATION TYPE: XR chest 2V DATE OF EXAM: 03/19/2017 COMPARISON: Chest x-ray from yesterday. HISTORY: Fever, history of asthma. TECHNIQUE: Frontal and lateral views of the chest are obtained. FINDINGS: Exam is suboptimal secondary to patient's body habitus. Low lung volumes are redemonstrate d. There is better visualized right hilar and left basilar opacities felt new from prior exam. Cardio megaly is redemonstrated. Visualized osseous structures are intact. IMPRESSION: New right hilar infiltrate and patchy left basilar atelectasis and/or infiltrate.
[2017-03-19 07:56] LABS: Add Differential Manual Differential
[2017-03-19 07:57] LABS: Nucleated Red Blood Cells 0 /100 WBC (0-0); Polychromasia Present; Total Cells Counted 100
[2017-03-19 08:10] LABS: ALT 33 U/L (9-52); AST 35 U/L (14-36); Alkaline Phosphatase 105 U/L (38-126); Anion Gap 12 mmol/L; Blood Urea Nitrogen 15 mg/dL (7-17); Calcium 9.1 mg/dL (8.4-10.2); Carbon Dioxide 22 mmol/L (22-30); Chloride 111 mmol/L (98-107); Glucose 98 mg/dL (74-99); Non-African American GFR(MDRD) >60 (>60 ml/min/1.73 sqM); Potassium 4.1 mmol/L (3.5-5.1); Sodium 145 mmol/L (137-145); Total Bilirubin 1.7 mg/dL (0.2-1.3); Total Protein 6.9 g/dL (6.3-8.2)
[2017-03-19] MEDS: SYMBICORT 160-4.5 MCG INHALER INHALATION SCH ×2 (08:29→21:23)
[2017-03-19] MEDS ORDERED: LORATADINE-PSEUDOEPH 5-120 MG 1 EACH TAB.ER.12H PO PRN (09:00)
[2017-03-19] MEDS: FLUTICASONE 50MCG/SPRAY NASAL 16GM EA NOSTRIL SCH ×3 (09:02→20:35)
[2017-03-19] MEDS: PARoxetine 20 MG TAB PO SCH ×3 (09:02→21:20)
[2017-03-19] MEDS ORDERED: RX INFO: IV CONTRAST WAS GIVEN 1 EACH MISC MISCELLANE PRN (10:50)
--- NOTE | 2017-03-19 11:43 | CT ---
EXAMINATION TYPE: CT chest w con DATE OF EXAM: 03/19/2017 COMPARISON: Chest x-ray from today and yesterday. HISTORY: Coughing up blood. Fever and sepsis. CT DLP: 1216.1 mGycm. Automated Exposure Control for Dose Reduction was Utilized. TECHNIQUE: CT scan of the thorax is performed following with IV Contrast, patient injected with 100 mL of Omnipaque 300. FINDINGS: LUNGS: Focal groundglass opacity anteriorly right upper lobe is seen on axial image 12. There are a dditional focal areas of groundglass opacity and consolidation posteriorly in the right upper lobe ne ar axial images 18 and 21 respectively Dense consolidation with air bronchograms involves the superio r posterior portion of left lower lobe. Lack of bronchograms inferiorly and centrally is noted making slightly more suspicious. Abrupt cut off is present of the smaller bronchi. This may reflect atelect atic changes there is subtle mediastinal shift felt present. Right middle lobe is clear. Some respira tory motion artifact is present. Patchy areas of opacity left lung apex suggests mild edema. No suspi cious consolidation is seen. Left lung base is clear. There is no pleural effusion or pneumothorax se en. The tracheobronchial tree is patent. MEDIASTINUM: There are no prominent thoracic lymph nodes. For reference there is right paratracheal lymph node measuring 1.5 x 1.1 cm on axial image 18 there are prominent but subcentimeter prevascular lymph nodes. There are suspected slightly enlarged right hilar and subcarinal lymph nodes. For refer ence subcarinal lymph node measures 2.0 x 1.1 cm on axial image 27 No pericardial effusion is seen. There is cardiomegaly with mild to moderate left ventricular dilatation. There is tortuous medial cou rse to bilateral common carotid arteries on axial image 1 posterior to the hypopharyngeal airway. OTHER: Liver is diffusely low dense consistent with fatty infiltration. There is 2.5 cm appearing cys t laterally mid to lower pole level left kidney on axial image 69. Mild multilevel spurring in the sp ine is present. IMPRESSION: Multifocal infiltrates right upper lobe on CT less well seen on x-ray. Dense consolidatio n involving right lower lobe is noted. Follow-up to resolution advised as more peripheral inferior me dial aspect shows lack of air bronchograms to rule out underlying mass. Would still favor obstructive atelectatic change. Reactive adenopathy right hilar, subcarinal, and paratracheal regions is noted.
[2017-03-19] MEDS: cefTRIAXone 2,000 MG in SODIUM CHLORIDE 0.9% 100 ML IVPB SCH ×2 (12:03→22:05)
--- NOTE | 2017-03-19 12:14 | P.CNPUL ---
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 The patient also has obstructive sleep apnea although she does not seem to be compliant to QUENTIN treatment. The patient was in hospital back in January for a left lung pneumonia for which she was seen by my partner, Dr. Peacock and the patient was treated successfully and the patient was discharged home. The patient is a lifetime nonsmoker. The patient came in yesterday to the ED for 2 days worth of increased fever although there was no documented temperature. The patient was feeling hot and cold. Denied having any headache or neck stiffness. In the emergency department the patient's temperature was all 4. Her initial [place] Coma Scale was 15 and later stage she became slightly obtunded. At that point, a lumbar puncture was done and the results were essentially negative. The patient was admitted to the hospital on a combination of Rocephin and vancomycin. Note that the initial white count was 25.3. The patient had a lactic acid of 3.0. The rest of the electrodes were within normal limits. Currently she is complaining of increased cough and congestion and mucus production. X-ray follow-up shows development of pulmonary infiltrates on the right suggestive an underlying pneumonia. The patient was admitted to the hospital. Subsequent white cell count is up to 36.1. The electrolytes remained within normal limits. The lactic acid is down to 2.2. Urinalysis is negative. Mental status improved significantly with fluid hydration and antibiotics. I reviewed the chest x-ray and was conversive the patient is having a pneumonia. Based on that I ordered a CAT scan of the chest in view of the recurrent nature of the pneumonia and the CAT scan showed multifocal infiltrates in the right upper lobe and there is a dense consolidation in the right lower lobe. The peripheral and inferior medial aspect of the right lower lobe pulmonary infiltrate has no air bronchogram and gives a masslike appearance. A still favor atelectasis/ consolidation. Reactive adenopathy in the right hilar inguinal and paratracheal area was noted. Review of Systems All systems: negative Constitutional: Denies chills, Denies fever Eyes: denies blurred vision, denies pain Ears, nose, mouth and throat: Denies headache, Denies sore throat Cardiovascular: Denies chest pain, Denies shortness of breath Respiratory: Denies cough Gastrointestinal: Denies abdominal pain, Denies diarrhea, Denies nausea, Denies vomiting Genitourinary: Denies dysuria, Denies hematuria Musculoskeletal: Denies myalgias Integumentary: Denies pruritus, Denies rash Neurological: Denies numbness, Denies weakness Psychiatric: Denies anxiety, Denies depression Endocrine: Denies fatigue, Denies weight change Past Medical History Past Medical History: Asthma, Sleep Apnea/CPAP/BIPAP, Thyroid Disorder Additional Past Medical History / Comment(s): Morbid obesity, obstructive sleep apnea, bronchial asthma, hypothyroidism, recent hospitalization for a left lung pneumonia and January 2017. History of Any Multi-Drug Resistant Organisms: None Reported Past Surgical History: Bladder Surgery, Hysterectomy Past Anesthesia/Blood Transfusion Reactions: No Reported Reaction Past Psychological History: Anxiety Smoking Status: Never smoker Past Alcohol Use History: None Reported Past Drug Use History: None Reported - Past Family History Mother Family Medical History: CVA/TIA, Diabetes Mellitus, Myocardial Infarction (MA) Medications and Allergies Home Medications Medication Instructions Recorded Confirmed Type Albuterol Inhaler [Ventolin Hfa 2 puff INHALATION RT-Q6H PRN 01/19/17 03/18/17 History Inhaler] Albuterol Nebulized [Ventolin 2.5 mg INHALATION RT-Q4H PRN 01/19/17 03/18/17 History Nebulized] Fluticasone Nasal [place] [Flonase 1 spray EA NOSTRIL DAILY 01/19/17 03/18/17 History Nasal [place]] Fluticasone/Salmeterol [Advair 1 puff INHALATION RT-BID 01/19/17 03/18/17 History 500-50 Diskus] Levothyroxine Sodium [Synthroid] 200 mcg PO DAILY 01/19/17 03/18/17 History Loratadine-Pseudoeph 5-120 mg 1 tab PO DAILY 01/19/17 03/18/17 History [Claritin-D 12 HR] Zafirlukast 20 mg PO BID 01/19/17 03/18/17 History PARoxetine [Paxil] 40 mg PO DAILY 03/18/17 03/18/17 History Allergies Allergy/AdvReac Type Severity Reaction Status Date / Time egg AdvReac Unknown Verified 03/18/17 11:19 milk AdvReac Unknown Verified 03/18/17 11:19 Physical Exam Vitals: Vital Signs Temp Pulse Pulse Resp BP BP Pulse Ox 03/19/17 08:30 88 03/19/17 08:15 88 100 03/19/17 04:43 98.4 F 03/19/17 04:00 100.3 F H 112 H 20 108/72 100 03/19/17 03:36 80 03/19/17 03:25 88 03/19/17 02:15 100.3 F H 03/19/17 00:00 97.9 F 97 18 85/48 97 03/18/17 22:52 80 03/18/17 22:41 80 03/18/17 20:00 97.9 F 100 18 89/62 98 03/18/17 18:46 97.8 F 95 18 110/55 96 03/18/17 18:19 95 18 110/55 96 03/18/17 18:18 97.9 F 100 20 89/62 98 03/18/17 16:08 97.8 F 03/18/17 15:00 114 H 18 96/50 95 Intake and Output 03/18/17 03/19/17 03/19/17 22:59 06:59 14:59 Intake Total 600 120 Balance 600 120 Intake: IV 600 Vancomycin 2,000 mg In 500 Sodium Chloride 0.9% 500 ml @ 167 mls/hr IVPB ONCE STA Rx#:[id number] cefTRIAXone 2,000 mg In 100 Sodium Chloride 0.9% 100 ml @ 100 mls/hr IVPB Q12HR [facility] Rx#:[id number] Oral 120 Other: Voiding Method Toilet # Voids 3 Weight 143.789 kg 140.4 kg Head exam was generally normal. There was no scleral icterus or corneal arcus. Mucous membranes were moist. Neck is short and supple and the patient has a Mallampati class IV.Neck was supple and without jugular venous distension, thyromegaly, or carotid bruits. Carotids were easily palpable bilaterally. There was no adenopathy. Lung sounds are diminished bilaterally otherwise clear. Breath sounds are slightly diminished motor the right lung base. Overall the heart sounds are distant.Cardiac exam revealed the PMI to be normally situated and sized. The rhythm was regular and no extrasystoles were noted during several minutes of auscultation. The first and second heart sounds were normal and physiologic splitting of the second heart sound was noted. There were no murmurs, rubs, clicks, or gallops. Abdomen is obese soft nontender. Organs cannot be accurately palpated.Examination of the extremities revealed easily palpable radial, femoral and pedal pulses. There was no cyanosis , clubbing There is +1 pitting edema. Results - Laboratory Findings CBC and BMP: 03/19/17 06:10 03/19/17 06:10 Abnormal lab findings: Abnormal Labs 03/18/17 03/18/17 03/18/17 08:42 08:42 08:42 WBC 25.3 H* Neutrophils # (Manual) 20.7 H Monocytes # (Manual) 1.3 H Sodium 136 L Chloride Carbon Dioxide 20 L Glucose 128 H Plasma Lactic Acid Mic 3.0 H* Total Bilirubin 1.8 H CSF Tot Nucleated Cells CSF Glucose 03/18/17 03/19/17 03/19/17 14:10 06:10 06:10 WBC 36.1 H* Neutrophils # (Manual) 31.8 H Monocytes # (Manual) 2.5 H Sodium Chloride 111 H Carbon Dioxide Glucose Plasma Lactic Acid Mic Total Bilirubin 1.7 H CSF Tot Nucleated Cells 6 H CSF Glucose 77 H 03/19/17 06:10 WBC Neutrophils # (Manual) Monocytes # (Manual) Sodium Chloride Carbon Dioxide Glucose Plasma Lactic Acid Mic 2.2 H* Total Bilirubin CSF Tot Nucleated Cells CSF Glucose - Diagnostic Findings Chest x-ray: image reviewed Assessment and Plan Plan: Assessment 1 acute sepsis secondary to a right lung pneumonia 2 right lung pneumonia, Multilobar involving the right upper lobe and the left lower lobe, please refer to the CAT scan of the chest. There is also some reactive lymphadenopathy. Doubt malignancy. 3 acute leukocytosis secondary to above 4 acute lactic acidosis, improving secondary to above 5 change in mental status secondary to sepsis, improved and the lumbar puncture is negative 6 morbid obesity 7 bronchial asthma 8 obstructive sleep apnea noncompliant to CPAP therapy 9 hypothyroidism Plan Cover this patient with a combination of Rocephin and Zithromax and vancomycin. Obtain sputum Gram stain and culture. Obtain blood culture. Follow-up chest x-ray to assess resolution of the right lung infiltrate. Blood cultures already been sent. Monitor mental status. Monitor white count. Monitor lactic acid levels. Will need the patient to bring her on CPAP for check and will hopefully get her more compliant with her was a treatment in addition. We' ll continue to follow.
[2017-03-19] MEDS ORDERED: AZITHROMYCIN 500 MG in SODIUM CHLORIDE 0.9% 250 ML IVPB SCH (12:15)
--- NOTE | 2017-03-19 12:34 | HP ---
DATE OF ADMISSION: 03/18/2017 CHIEF COMPLAINT: Fever and change in mental status. HISTORY OF PRESENT ILLNESS: This 51-year-old woman with a past medical history of multiple medical problems including asthma, sleep apnea, hypothyroidism, bladder surgery, anxiety being followed by primary physician in , was recently admitted with pneumonia, acute hypoxic respiratory failure, parapneumonic effusion, lactic acidosis. Patient improved significantly. Patient went home. The patient apparently went to have appointment with Dr. Rueda for sleep testing. Otherwise, currently the patient had fever on and off for the last 2 days. Patient had change in mental status. The patient did not have any headache initially. Currently the patient complains of mild headache. Temperature went up to 104. Patient came to [facility] and admitted for further evaluation and treatment. White count was elevated at 25.3, plasma lactic acid 3 indicating sepsis. The patient had lumbar puncture also. Protein is pending at this time. Glucose 776. Nuclear cells were noted. There is no chest pain, palpitation, hematochezia, melena at this time. The patient had snoring. PAST MEDICAL HISTORY: History of asthma, obstructive sleep apnea, history of recent pneumonia, history of hypothyroidism, history of bladder surgery, anxiety. Medications prior to admission include: 1. Zafirlukast 20 mg p.o. b.i.d. 2. Paxil 40 mg p.o. daily. 3. Claritin-D 1 p.o. daily. 4. Synthroid 200 mcg p.o. daily. 5. Advair 500/250 1 puff b.i.d. 6. Flonase one spray daily. 7. Ventolin 2.5 q.4 p.r.n. 8. Ventolin inhaler 2 puffs q.4 p.r.n. ALLERGIES: MILK. FAMILY HISTORY: History of CVA, TIA, diabetes mellitus, myocardial infarction the family. SOCIAL HISTORY: No history of smoking or alcohol intake. REVIEW OF SYSTEMS: ENT: No diminishing hearing or diminished vision. CARDIOVASCULAR: No angina or palpitations. RESPIRATORY: No coughing. GI: No nausea. : No dysuria. NERVOUS SYSTEM: No numbness or weakness. ALLERGY/IMMUNOLOGY: As mentioned earlier. HEMATOLOGY: No history of anemia. ENDOCRINE: No history of diabetes or hypothyroidism. CONSTITUTIONAL: As mentioned earlier. DERMATOLOGY: Negative. RHEUMATOLOGY: Negative. PSYCHIATRY: As mentioned earlier. PHYSICAL EXAMINATION: Patient is alert and oriented x3. Pulse is 95, blood pressure 110/55, respiration 18, temperature 97.8, pulse ox 97% on 2-L. HEENT: Conjunctivae normal. Mild facial puffiness present. NECK: No jugular venous distention. CARDIOVASCULAR: S1 and S2, muffled. RESPIRATORY: Breath sounds diminished at the bases. Bilateral scattered rhonchi and crackles. ABDOMEN: Soft, obese, nontender. No mass palpable. LEGS: Leg edema. NERVOUS SYSTEM: Higher function as mentioned. Cranial nerves II through XII grossly intact. Moves all four limbs. No focal motor sensory deficits. LYMPHATIC: No lymphadenopathy in the neck, axillae or groin. SKIN: No ulcer, rash or bleeding. Labs at this time are WBC 25.3 predominant neutrophils. Sodium 136. Glucose 120, plasma lactic acid 3, total bilirubin is 1.8. ASSESSMENT: 1. Fever, leukocytosis for evaluation, possible sepsis. 2. Hyponatremia. 3. Increased plasma lactic acid. 4. Increased bilirubin. 5. History of recent pneumonia with acute hypoxic respiratory failure and parapneumonic effusion. 6. Sleep apnea, possibly. 7. Morbid obesity, body mass index of 51.2. 8. History of bladder surgery. 9. Anxiety, not otherwise specified. 10. FULL CODE. RECOMMENDATIONS AND DISCUSSION: This 51-year-old woman who presented with multiple complex medical issues, we will monitor the patient closely. Continue the current medications. Continue with symptomatic treatment. Lumbar puncture has been done. Full report is awaited. Urine cultures. Empiric antibiotics initiated. Recommend infectious disease as well as consult with Dr. Ray regarding the follow-up of asthma and sleep apnea. Otherwise, guarded prognosis because of multiple complex medical issues. See orders for further details. DVT prophylaxis. Further recommendations to follow. Ensure oxygenation. Discussed with patient. Will obtain blood culture as well. Discussed with the patient who understands and agrees. APARNA
[2017-03-19] MEDS: HYDROcodone/APAP 5-325MG 1 EACH TAB PO PRN (13:22)
[2017-03-19] MEDS: LEVOFLOXACIN 750 MG TAB PO SCH (20:34)
[2017-03-19] MEDS: MONTELUKAST 10 MG TAB PO SCH (20:35)
[2017-03-20] MEDS ORDERED: VANCOMYCIN TROUGH DUE 1 EACH MISC MISCELLANE ONE (05:00)
[2017-03-20 06:26] LABS: Basophils % (A) 0 %; CH 28.4; CHCM 31.2; Eosinophils # (A) 0.3 k/uL (0-0.7); Eosinophils % (A) 1 %; HCT 35.7 % (34.0-46.0); HDW 2.66; HGB 11.3 gm/dL (11.4-16.0); Hypochromasia Slight; Luc # (Auto) 0.46; Luc % (Auto) 2; Lymphocytes # (A) 1.2 k/uL (1.0-4.8); Lymphocytes % (A) 5 %; MCHC 31.7 g/dL (31.0-37.0); MCV 91.5 fL (80.0-100.0); Mean Platelet Volume 7.9; Monocytes # (A) 1.1 k/uL (0-1.0); Monocytes % (A) 4 %; Neutrophils # (A) 23.3 k/uL (1.3-7.7); Neutrophils % (A) 88 %; RDW 14.7 % (11.5-15.5); WBC (Perox) 26.38
[2017-03-20] MEDS: VANCOMYCIN 2,000 MG in SODIUM CHLORIDE 0.9% 500 ML IVPB SCH ×2 (06:26→17:52)
[2017-03-20] MEDS: LEVOTHYROXINE 100 MCG TAB PO SCH (06:27)
[2017-03-20] MEDS: PANTOPRAZOLE 40 MG TABLET PO SCH (06:27)
[2017-03-20 06:29] LABS: WBC 26.4 k/uL (3.8-10.6)
[2017-03-20 06:36] LABS: Anion Gap 12 mmol/L; Blood Urea Nitrogen 16 mg/dL (7-17); Calcium 9.3 mg/dL (8.4-10.2); Carbon Dioxide 21 mmol/L (22-30); Chloride 109 mmol/L (98-107); Glucose 111 mg/dL (74-99); Non-African American GFR(MDRD) >60 (>60 ml/min/1.73 sqM); Potassium 3.6 mmol/L (3.5-5.1); Sodium 142 mmol/L (137-145)
[2017-03-20] MEDS: SYMBICORT 160-4.5 MCG INHALER INHALATION SCH ×2 (07:46→21:32)
[2017-03-20] MEDS: ALBUTEROL NEBULIZED 2.5 MG/3 ML INHALATION PRN ×4 (07:46→21:31)
[2017-03-20] MEDS: ACETAMINOPHEN TAB 500 MG TAB PO PRN ×2 (09:09→18:00)
[2017-03-20] MEDS: HEPARIN SODIUM,PORCINE 5,000 UNIT/ML 1 ML VIAL SQ SCH ×2 (09:10→21:23)
--- NOTE | 2017-03-20 09:25 | CONS ---
DATE OF CONSULTATION: 03/19/2017 REASON FOR CONSULTATION: Fever. HISTORY OF PRESENT ILLNESS: The patient is a 51-year-old female with a past medical history significant for ( ). Admitted to the hospital for pneumonia. The patient presented to the ER with chief complaints of weakness that had been going on for about 2 days. The patient also noticed to have "significant headache" and the patient was also complaining of cough, but not a significant amount of sputum. No significant URI symptoms. In the ER the patient was noticed to have a fever of 104 degrees Fahrenheit with some weakness. Chest x-ray was suboptimal study. CT scan of the brain was negative. Repeat x-ray this morning showing new right infiltrate, patchy basilar infiltrate. The patient had a CT of the chest which did show infiltrate in the right upper lobe and ( ) in the right lower lobe. The patient also had LP during this admission which remains to be negative. The patient subsequently has been treated with Rocephin, Zithromax and vancomycin. ID was consulted for further recommendations regarding antibiotic therapy. The patient started coughing up some blood this morning, though no nausea or vomiting. No abdominal pain or diarrhea. REVIEW OF SYSTEMS: Constitutional: Positive for weakness and fever. Eyes: No complaints. ENT: No complaints. Respiratory: As per HPI. Cardiovascular: No complaints. Genitourinary: No complaints. Musculoskeletal: No complaints. Psychological: No complaints. PAST MEDICAL HISTORY: Significant for asthma, sleep apnea, hypothyroidism, morbid obesity pneumonia. PAST SURGICAL HISTORY: Bladder surgery, hysterectomy. SOCIAL HISTORY: No history of smoking or drug use. FAMILY HISTORY: Mother with history of CVA, TIA, diabetes and GA. ALLERGIES: EGGS, MILK. MEDICATIONS: 1. Xanax. 2. Azithromycin. 3. Symbicort. 4. Ceftriaxone. 5. Flonase. 6. Heparin. 7. Dilaudid. 8. Motrin. 9. Synthroid. 10. Vancomycin. 11. Singulair. 12. Protonix. 13. Paxil. 14. Restoril. On examination, her blood pressure is 104/57, pulse 100, temperature 98.2, 99% on 2L nasal cannula. GENERAL: Elderly female, up in chair, in no distress. No tachypnea or muscle of respiration use. HEENT: No pallor or scleral icterus. Oral mucosa moist. NECK: Trachea central. No thyromegaly. LUNGS: Nonlabored breathing. Coarse breath sounds bilaterally. No wheezing. HEART: S1, S2. Regular rate and rhythm. ABDOMEN: Soft. No tenderness. EXTREMITIES: No edema of the feet. SKIN: No rash. NEUROLOGICAL: The patient is awake, alert, oriented x3. Mood and affect normal. LABS: Hemoglobin is 12, white count 6.1, BUN of 15, creatinine 0.90. Lactic acid ( ). Urine has been negative. X-ray as mentioned above. DIAGNOSTIC IMPRESSION AND PLAN: Patient admitted to hospital with fever, cough and now hemoptysis with right lower lobe pneumonia, likely community-acquired pneumonia, underlying resistant Gram-positive cannot be entirely excluded. The patient is hospitalized and being treatment for pneumonia. PLAN: 1. Will obtain sputum for Gram stain culture and sensitivity. 2. Switch over the Zithromax to Levaquin. 3. Continue the patient on Rocephin and vancomycin. 4. Depending upon her clinical response and cultures, we will adjust medications further. Thank you for this consultation. We will follow this patient along with you.
[2017-03-20] MEDS: cefTRIAXone 2,000 MG in SODIUM CHLORIDE 0.9% 100 ML IVPB SCH ×2 (09:56→21:23)
--- NOTE | 2017-03-20 11:08 | ECHOF ---
Referral Reason:CHF MEASUREMENTS -------- HEIGHT: 165.1 cm WEIGHT: 141.5 kg BP: 90/60 RVIDd: 4.4 cm (< 3.3) IVSd: 1.3 cm (0.6 - 1.1) LVIDd: 5.6 cm (3.9 - 5.3) LVPWd: 1.4 cm (0.6 - 1.1) IVSs: 1.5 cm LVIDs: 5.2 cm LVPWs: 1.6 cm Ao Diam: 3.3 cm (2.0 - 3.7) AV Cusp: 2.3 cm (1.5 - 2.6) LA Diam: 4.7 cm (2.7 - 3.8) MV EXCURSION: 20.824 mm (> 18.000) MV EF SLOPE: 66 mm/s (70 - 150) EPSS: 0.9 cm MV E Gregg: 1.08 m/s MV DecT: 245 ms MV A Gregg: 1.34 m/s MV E/A Ratio: 0.81 AV maxP.52 mmHg AV meanP.37 mmHg RAP: 5.00 mmHg RVSP: 37.92 mmHg FINDINGS -------- Undetermined rhythm. Morbid Obesity This was a techncally difficult study with suboptimal views, , Definity utilized for enhancement of images. There is mild concentric left ventricular hypertrophy. Overall left ventricular systolic function is mildly impaired with, an EF between 45 - 50 %. The right ventricle is moderately enlarged. The right atrial size is normal. 1.5MG OF DEFINITY UTLIZED: 2 OR MORE WALL SEGMENTS NOT VISUALIZED. The aortic valve was not well visualized. Peak/mean gradient across the Aortic Valve is 14.52mmHg / 7.37mmHg. Mild mitral annular calcification present. Mild mitral regurgitation is present. Mild tricuspid regurgitation present. There is mild pulmonary hypertension. The right ventricular systolic pressure, as measured by Doppler, is 37.92mmHg. There is no pulmonic regurgitation present. There is a small, generalized pericardial effusion present. CONCLUSIONS -------- 1. Morbid Obesity 2. Mild tricuspid regurgitation present. 3. There is mild pulmonary hypertension. 4. The right ventricular systolic pressure, as measured by Doppler, is 37.92mmHg. 5. There is no pulmonic regurgitation present. 6. There is a small, generalized pericardial effusion present. 7. This was a techncally difficult study with suboptimal views, , Definity utilized for enhancement of images. 8. There is mild concentric left ventricular hypertrophy. 9. The right ventricle is moderately enlarged. 10. 1.5MG OF DEFINITY UTLIZED: 2 OR MORE WALL SEGMENTS NOT VISUALIZED. 11. The aortic valve was not well visualized. 12. Peak/mean gradient across the Aortic Valve is 14.52mmHg / 7.37mmHg. 13. Mild mitral annular calcification present. 14. Mild mitral regurgitation is present. TOP CLEANER: Emy Ren RDCS
--- NOTE | 2017-03-20 12:27 | P.PN ---
Subjective Principal diagnosis: Acute right lung pneumonia, multi-lobar, and acute sepsis. 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 The patient also has obstructive sleep apnea although she does not seem to be compliant to QUENTIN treatment. The patient was in hospital back in January for a left lung pneumonia for which she was seen by my partner, Dr. Peacock and the patient was treated successfully and the patient was discharged home. The patient is a lifetime nonsmoker. The patient came in yesterday to the ED for 2 days worth of increased fever although there was no documented temperature. The patient was feeling hot and cold. Denied having any headache or neck stiffness. In the emergency department the patient's temperature was all 4. Her initial [place] Coma Scale was 15 and later stage she became slightly obtunded. At that point, a lumbar puncture was done and the results were essentially negative. The patient was admitted to the hospital on a combination of Rocephin and vancomycin. Note that the initial white count was 25.3. The patient had a lactic acid of 3.0. The rest of the electrodes were within normal limits. Currently she is complaining of increased cough and congestion and mucus production. X-ray follow-up shows development of pulmonary infiltrates on the right suggestive an underlying pneumonia. The patient was admitted to the hospital. Subsequent white cell count is up to 36.1. The electrolytes remained within normal limits. The lactic acid is down to 2.2. Urinalysis is negative. Mental status improved significantly with fluid hydration and antibiotics. I reviewed the chest x-ray and was conversive the patient is having a pneumonia. Based on that I ordered a CAT scan of the chest in view of the recurrent nature of the pneumonia and the CAT scan showed multifocal infiltrates in the right upper lobe and there is a dense consolidation in the right lower lobe. The peripheral and inferior medial aspect of the right lower lobe pulmonary infiltrate has no air bronchogram and gives a masslike appearance. A still favor atelectasis/ consolidation. Reactive adenopathy in the right hilar inguinal and paratracheal area was noted. Patient was reevaluated today on 03/20/2017, seems to be doing a bit better, less shortness of breath noted, and the patient continues to have intermittent episodes of cough, some wheezing, patient clearly has severe obstructive sleep apnea syndrome, as she was noted to fall asleep easily at the time of my examination. Apparently she does have documented obstructive sleep apnea, but the patient could not tolerate CPAP, she has one at home, but she hasn't used it in 7 years. Labs showed leukocytosis with WBC count of 26.4. Her lactic acid was 2.2 yesterday, electrolytes and renal profile are normal. Influenza type a and P were negative up on screening blood cultures are negative so far. Urine cultures are negative so far. Spinal fluid Gram stain is negative. Objective - Vital Signs Vital signs: Vital Signs Temp 99.3 F 03/20/17 08:00 Pulse 88 03/20/17 11:54 Resp 18 03/20/17 08:00 BP 134/82 03/20/17 08:00 Pulse Ox 99 03/20/17 08:00 Intake & Output 03/19/17 03/20/17 03/20/17 18:59 06:59 18:59 Intake Total 4490 240 240 Balance 4490 240 240 Weight 141.3 kg Intake: IV 100 240 cefTRIAXone 2,000 mg In 100 240 Sodium Chloride 0.9% 100 ml @ 100 mls/hr IVPB Q12HR [facility] Rx#:[id number] Intake, IV Titration 1430 Amount Azithromycin 500 mg In 250 Sodium Chloride 0.9% 250 ml @ 125 mls/hr IVPB DAILY [facility] Rx#:[id number] Sodium Chloride 0.9% 1, 80 000 ml @ 100 mls/hr IV . Q10H [facility] Rx#:[id number] Vancomycin 2,000 mg In 1000 Sodium Chloride 0.9% 500 ml @ 167 mls/hr IVPB Q12H [facility] Rx#:[id number] cefTRIAXone 2,000 mg In 100 Sodium Chloride 0.9% 100 ml @ 100 mls/hr IVPB Q12HR [facility] Rx#:[id number] Oral 2960 240 Other: Voiding Method Toilet Toilet # Voids 3 1 - Exam Physical Exam: Revealed a 51-year-old female in no distress, slightly lethargic , but arousable, and was able to maintain an adequate conversation. HEENT:[Neck is supple.] [No neck masses.] [No thyromegaly.] [No JVD.] Narrow oropharynx, short-term obese neck is noted. Chest: [Crackles and rhonchi were heard bilaterally more so at the right base..] Cardiac Exam: [Normal S1 and S2, no S3 gallop, no murmur.] Abdomen: [Obese, Soft, nontender, no megaly, no rebound, no guarding, normal bowel sounds.] Extremities: [No clubbing, 1+ bipedal edema, no cyanosis.] Neurological Exam: [No focal neurologic deficit.] - Labs CBC & Chem 7: 03/20/17 06:11 03/20/17 06:11 Labs: Abnormal Lab Results - Last 24 Hours (Table) 03/20/17 03/20/17 Range/Units 06:11 06:11 WBC 26.4 H* (3.8-10.6) k/uL Hgb 11.3 L (11.4-16.0) gm/dL Neutrophils # 23.3 H (1.3-7.7) k/uL Monocytes # 1.1 H (0-1.0) k/uL Chloride 109 H (98-107) mmol/L Carbon Dioxide 21 L (22-30) mmol/L Glucose 111 H (74-99) mg/dL Microbiology - Last 24 Hours (Table) 03/18/17 08:42 Blood Culture - Preliminary Blood No Growth after 48 hours 03/18/17 08:55 Urine Culture - Final Urine,Catheterized Assessment and Plan Plan: 1 acute sepsis secondary to a right lung pneumonia, community-acquired, 2 right lung pneumonia, Multilobar involving the right upper lobe and the left lower lobe, please refer to the CAT scan of the chest. There is also some reactive lymphadenopathy. Doubt malignancy. 3 acute leukocytosis secondary to above 4 acute lactic acidosis, improving secondary to above 5 change in mental status secondary to sepsis, improved and the lumbar puncture is negative 6 morbid obesity 7 bronchial asthma 8 obstructive sleep apnea noncompliant to CPAP therapy 9 hypothyroidism Recommendation: Continue present supportive care measures including antibiotics , bronchodilators, follow-up chest x-ray in the next 24 hours, and if no significant improvement is noted in the next few days, may have to consider bronchoscopy on this patient. At this point I believe there is definite clinical improvement, and we'll continue with antibiotics and bronchodilators. Prognosis remains guarded. Time with Patient: Less than 30
--- NOTE | 2017-03-20 14:44 | PN ---
DATE OF SERVICE: 03/19/2017 This 51-year-old woman was admitted with a fever and change in mental status. A CAT scan and chest x-ray was unremarkable. Today's x-ray and CAT scan revealed multilobar right upper lobe pneumonia, probably which is causing the sepsis. The patient is on broad-spectrum IV antibiotics. Please note, the patient also had a previous history of pneumonia and sepsis, also. Dr. Ray is following the patient closely. The patient on broad-spectrum IV antibiotics. There is no history of fever, rigor or chills. PAST MEDICAL HISTORY: Reviewed. REVIEW OF SYSTEMS: CARDIOVASCULAR: No angina or palpitation. RESPIRATORY: As mentioned earlier. GI: As mentioned earlier. : No dysuria. Current medications are Tylenol 1000 mg q.6 p.r.n., [place] 5 mg q.h.s., Ventolin, Xanax 0.25 t.i.d., Symbicort b.i.d., Rocephin daily, Dilaudid, Motrin, Levaquin, Claritin-D, vancomycin, Narcan., Protonix, Paxil, Restoril. PHYSICAL EXAM: Patient is alert and oriented x3. Pulse is 106, blood pressure 94/54, respiration 18, temperature 98 degrees, pulse ox 100 on 2 L. HEENT: Conjunctivae normal, oral mucosa moist. NECK: No jugular venous distention. No carotid bruit. No lymph node enlargement. CARDIOVASCULAR: S1, S2, muffled. No S3, no S4. RESPIRATORY: Breath sounds diminished at the bases. Bilateral scattered rhonchi, no crackles. Expiratory wheezing also present. ABDOMEN: Soft, obese, nontender, no mass palpable. LEGS: No edema, no swelling. NERVOUS SYSTEM: Higher functions as mentioned, moves all 4 limbs, no focal motor deficits. LYMPHATICS: No lymph node enlargement. SKIN: No ulcer, rash or bleeding. LABS: WBC is 36.1, sodium 145, plasma lactic acid 2.2. ASSESSMENT: 1. Fever, leukocytosis, possible acute right multilobar pneumonia with possible sepsis. 2. Hyponatremia. 3. Increased plasma lactic acid. 4. Increased bilirubin. 5. Increased WBC. 6. History of recent pneumonia with acute hypoxic respiratory failure and parapneumonic effusion. 7. History of sleep apnea, possibly. 8. Morbid obesity, body mass index of 51.2. 9. History of bladder surgery. 10. Anxiety, not otherwise specified. 11. FULL CODE. RECOMMENDATION: In this 51-year-old woman who presented with multiple complex medical issues, will monitor the patient closely, continue with the current medication and symptomatic treatment. Otherwise, at this time continue the bronchodilators and empiric antibiotics. Closely follow with Dr. Ray. Guarded prognosis with multiple complex medical issues. Further recommendations to follow.
--- NOTE | 2017-03-20 16:34 | P.PN ---
Subjective Date of service 03/20/2017 Progress note being dictated for Dr. Hardy. Interval history: This is a 51-year-old female admitted with fever, leukocytosis , possible acute right multilobar pneumonia, possible sepsis, hyponatremia and multiple other medical issues. Maintained on empiric antibiotics, as per infectious disease, afebrile. Spinal fluid, urine, blood cultures currently negative .WBC 26.4, lactic acid yesterday 2.2. Maintaining O2 sats of 99% on 2 L nasal cannula. Slowly improving, pulmonary discussing potential bronchoscopy depending on the chest x-ray in a.m. Echo suboptimal study, reporting moderately impaired LV function, EF 45-50%. Afebrile, T-max 99.3. Telemetry sinus rhythm to sinus tach, heart rates ranging from 80s to low 100s. Review of systems: HEENT: Denies headache or focal deficits. Denies any dizziness or lightheadedness. denies hemoptysis Respiratory: Complains of increased shortness of breath. Cardiac: Denies any chest pain, palpitations. GI: Denies any nausea, vomiting, or diarrhea. Denies any abdominal tenderness. : Denies any dysuria. Psychiatry: Denies any anxiety or depression. Active Medications Acetaminophen (Tylenol Tab) 1,000 mg PO Q6HR PRN PRN Reason: Mild Pain or Fever > 100.5 Last Admin: 03/20/17 09:09 Dose: 1,000 mg Hydrocodone Bitart/Acetaminophen ([place] 5-325) 1 each PO Q6HR PRN PRN Reason: Pain Last Admin: 03/19/17 13:22 Dose: 1 each Albuterol Sulfate (Ventolin Nebulized) 2.5 mg INHALATION RT-Q4H PRN PRN Reason: Wheezing Last Admin: 03/20/17 11:43 Dose: 2.5 mg Alprazolam (Xanax) 0.25 mg PO TID PRN PRN Reason: Anxiety Budesonide/Formoterol Fumarate (Symbicort 160-4.5 Mcg Inhaler) 2 puff INHALATION RT-BID [facility] Last Admin: 03/20/17 07:46 Dose: 2 puff Fluticasone Propionate (Flonase Nasal [place]) 1 spray EA NOSTRIL HS [facility] Last Admin: 03/19/17 20:35 Dose: 1 spray Heparin Sodium (Porcine) (Heparin) 5,000 unit SQ Q12HR [facility] Last Admin: 03/20/17 09:10 Dose: 5,000 unit Hydromorphone HCl (Dilaudid) 1 mg IV Q3HR PRN PRN Reason: Severe Pain Ceftriaxone Sodium 2,000 mg/ (Sodium Chloride) 100 mls @ 100 mls/hr IVPB Q12HR [facility] Last Admin: 03/20/17 09:56 Dose: 100 mls/hr Vancomycin HCl 2,000 mg/ (Sodium Chloride) 500 mls @ 167 mls/hr IVPB Q12H [facility] Last Admin: 03/20/17 06:26 Dose: 167 mls/hr Ibuprofen (Motrin) 600 mg PO Q6HR PRN PRN Reason: Mild Pain or Fever > 100.5 Levofloxacin (Levaquin) 750 mg PO Q24H [facility] Last Admin: 03/19/17 20:34 Dose: 750 mg Levothyroxine Sodium (Synthroid) 200 mcg PO DAILY@0630 [facility] Last Admin: 03/20/17 06:27 Dose: 200 mcg Loratadine/Pseudoephedrine Sulfate (Claritin-D 12 Hr) 1 each PO DAILY PRN PRN Reason: Congestion Miscellaneous Information (Rx Info: Iv Contrast Was Given) 1 each MISCELLANE DAILY PRN PRN Reason: Per Protocol Stop: 03/21/17 10:51 Montelukast Sodium (Singulair) 10 mg PO [facility] Last Admin: 03/19/17 20:35 Dose: 10 mg Naloxone HCl (Narcan) 0.2 mg IV Q2M PRN PRN Reason: Opioid Reversal Pantoprazole Sodium (Protonix) 40 mg PO AC-BRKFST [facility] Last Admin: 03/20/17 06:27 Dose: 40 mg Paroxetine HCl (Paxil) 40 mg PO HS [facility] Last Admin: 03/19/17 21:20 Dose: 40 mg Temazepam (Restoril) 15 mg PO HS PRN PRN Reason: Insomnia Objective - Vital Signs Vital signs: Vital Signs Temp 97.8 F 03/20/17 12:00 Pulse 90 03/20/17 12:00 Resp 18 03/20/17 12:00 BP 105/81 03/20/17 12:00 Pulse Ox 99 03/20/17 12:00 Intake & Output 03/19/17 03/20/17 03/20/17 18:59 06:59 18:59 Intake Total 4490 240 840 Balance 4490 240 840 Weight 141.3 kg Intake: IV 100 240 100 cefTRIAXone 2,000 mg In 100 240 100 Sodium Chloride 0.9% 100 ml @ 100 mls/hr IVPB Q12HR [facility] Rx#:[id number] Intake, IV Titration 1430 500 Amount Azithromycin 500 mg In 250 Sodium Chloride 0.9% 250 ml @ 125 mls/hr IVPB DAILY [facility] Rx#:[id number] Sodium Chloride 0.9% 1, 80 000 ml @ 100 mls/hr IV . Q10H [facility] Rx#:[id number] Vancomycin 2,000 mg In 1000 500 Sodium Chloride 0.9% 500 ml @ 167 mls/hr IVPB Q12H [facility] Rx#:[id number] cefTRIAXone 2,000 mg In 100 Sodium Chloride 0.9% 100 ml @ 100 mls/hr IVPB Q12HR [facility] Rx#:[id number] Oral 2960 240 Other: Voiding Method Toilet Toilet # Voids 3 1 - Exam PHYSICAL EXAM: VITAL SIGNS: As above GENERAL: [Sitting up in chair, no acute distress] HEENT: [Pupils equal conjunctiva normal. Oral mucosa moist] NECK: [Supple, no JVD] RESPIRATORY EFFORT:[ Mildly increased] LUNGS: [Harsh bronchial breathing, expiratory wheezing] CARDIOVASCULAR[ regular S1 and S2, occasional mild tachycardia, no murmurs rubs or gallops] GI: [Abdomen soft, obese, nontender, positive bowel sounds. No guarding, no rigidity] PSYCH: [Alert and oriented -3, mood and affect normal.] NEURO: No focal deficits, does all 4 extremities, strength and sensation grossly intact. Microbiology 03/18/17 08:42 Blood Blood Culture - Preliminary No Growth after 48 hours 03/18/17 08:55 Urine,Catheterized Urine Culture - Final 03/18/17 14:10 Cerebral Spinal Fluid CSF Gram Stain - Preliminary 03/18/17 14:10 Cerebral Spinal Fluid CSF Culture - Preliminary - Labs CBC & Chem 7: 03/20/17 06:11 03/20/17 06:11 Labs: Abnormal Lab Results - Last 24 Hours (Table) 03/20/17 03/20/17 Range/Units 06:11 06:11 WBC 26.4 H* (3.8-10.6) k/uL Hgb 11.3 L (11.4-16.0) gm/dL Neutrophils # 23.3 H (1.3-7.7) k/uL Monocytes # 1.1 H (0-1.0) k/uL Chloride 109 H (98-107) mmol/L Carbon Dioxide 21 L (22-30) mmol/L Glucose 111 H (74-99) mg/dL Microbiology - Last 24 Hours (Table) 03/18/17 08:42 Blood Culture - Preliminary Blood No Growth after 48 hours 03/18/17 08:55 Urine Culture - Final Urine,Catheterized Assessment and Plan Plan: 1. Fever, leukocytosis, possible acute right multilobar pneumonia with septis. 2. [ Hyponatremia]. 3. [ Increased plasma lactic acid]. 4. [ Increased bilirubin]. 5. [ Leukocytosis]. 6. [ Recent pneumonia with acute hypoxic respiratory failure and parapneumonic effusion]. 7. [ Morbid obesity, BMI 50.3 8. Anxiety, not otherwise specified Plan: Continue on current medication regime ,monitoring and symptomatic treatment. Maintained on Rocephin, vancomycin, Levaquin as per infectious disease.] Follow cultures closely. Close monitoring of electrolytes, WBC with repeat labs ordered for a.m. Follow-up chest x-ray in a.m.. Further recommendations to follow. The impression and plan of care has been dictated as directed. : I performed a H&P examination of this patient and discussed the same with the dictator. I agree with the dictator's note. Any additional findings/opinions/ etc. will be noted.
--- NOTE | 2017-03-20 16:54 | CDI ---
In responding to this query, please exercise your independent professional judgment. The [facility] Coding Staff and Clinical Documentation Specialists appreciate your assistance in clarifying documentation, maintaining compliance with coding guidelines, accurately documenting patients condition and capturing severity of illness. The fact that a question is asked does not imply that any particular answer is desired or expected. Communication forms are a method of clarifying documentation and are not made part of the Legal Health Record. Thank you in advance for your clarification. Last Revision, December [address] [facility] [place] [address] Documentation Clarification Form Date: 03/20/2017 4:34:00 PM From: Ciciaylin Grossman Admit Date: 03/18/2017 4:31:00 PM Patient Name: Mery Kim Visit Number: [id number] Discharge Date: Dr. Christopher Hardy Altered mental status was documented in the ER notes, your H/P and progress notes and in the pulmonary consult. Patient history/risk factors: Asthma, Sleep apnea, Thyroid disorder, Morbid obesity, Clinical Indicators: Present with weakness and high fever. On arrival she was quite confused. She was awake and alert, altered mentally, not able to answer any questions clearly. Vital signs on admission: 136/75 144 22 104 96 % Labs: WBC 25.3, Plasma lactic acid 3.0 Chest X Ray: new right hilar infiltrate and patchy left basilar atelectasis and/ or infiltrate. CT Brain: no acute intracranial hemorrhages or midline shift Treatment: Monitor Labs Neurological assessment (per protocol) Blood culture (Pending) Rocephin IV Levaquin IV Vancomycin IV In your professional opinion, please further clarify the etiology of the altered mental status, if known. Encephalopathy (specify Type, Metabolic, Toxic, Other specify, and Underlying Medical Illness) Delirium (specify cause): Dementia (if know, specify Type and if with/without Behavioral Disturbance) Other condition (please specify) Unable to determine Please document in your progress notes and discharge summary in order to capture severity of illness and risk of mortality. Include clinical findings that support your diagnosis. FYI: Press F11 to launch patient chart. Place X here if this finding has no clinical significance, is not applicable or if you are not able to provide any additional documentation. ANIKAD
[2017-03-20] MEDS: LEVOFLOXACIN 750 MG TAB PO SCH (17:51)
[2017-03-20] MEDS: FLUTICASONE 50MCG/SPRAY NASAL 16GM EA NOSTRIL SCH (21:23)
[2017-03-20] MEDS: PARoxetine 20 MG TAB PO SCH (21:23)
[2017-03-20] MEDS: MONTELUKAST 10 MG TAB PO SCH (21:23)
--- NOTE | 2017-03-20 21:41 | PN ---
DATE OF SERVICE: 03/20/2017 This 51-year-old woman who was admitted with fever and leukocytosis, possibly acute multilobar pneumonia with sepsis. Seen and evaluated the patient along with the nurse practitioner. Please refer to the nurse practitioner notes and impressions documented as a scribe for further information.
--- NOTE | 2017-03-20 22:32 | PN ---
DATE OF SERVICE: 03/20/2017 REASON FOR FOLLOWUP: Right lobe pneumonia. INTERVAL HISTORY: The patient is afebrile. Her breathing has slightly improved. She continues to have a cough with some blood in it. Denies significant chest pain. No abdominal pain or any diarrhea. On examination, blood pressure is 137/76 with a pulse of 88, temperature 98. She is 95% on 2 L nasal cannula. General description is a middle-aged female up in the chair in no distress. RESPIRATORY SYSTEM: Unlabored breathing with decreased ( ) breath sounds. No significant wheeze. HEART: S1, S2. Regular rate and rhythm. ABDOMEN: Soft. No tenderness. LABS: Hemoglobin is 11.3, white count 6.4. BUN of 16, creatinine 0.90. Blood culture so far negative. DIAGNOSTIC IMPRESSION AND PLAN: Patient admitted to hospital with significant fever with a likely component of right lower lobe pneumonia with a question of possible community-acquired. Patient is currently broadly covered with antibiotics in the form of Rocephin and Levaquin. Will follow up on the cultures to adjust antibiotics further.
[2017-03-21] MEDS: VANCOMYCIN 2,000 MG in SODIUM CHLORIDE 0.9% 500 ML IVPB SCH ×2 (06:09→17:53)
[2017-03-21] MEDS: LEVOTHYROXINE 100 MCG TAB PO SCH (06:09)
[2017-03-21 06:14] LABS: Basophils % (A) 0 %; CH 28.5; CHCM 31.4; Eosinophils # (A) 0.4 k/uL (0-0.7); Eosinophils % (A) 2 %; HCT 34.7 % (34.0-46.0); HDW 2.78; HGB 10.7 gm/dL (11.4-16.0); Hypochromasia Slight; Luc # (Auto) 0.38; Luc % (Auto) 2; Lymphocytes # (A) 1.9 k/uL (1.0-4.8); Lymphocytes % (A) 11 %; MCHC 30.7 g/dL (31.0-37.0); MCV 91.1 fL (80.0-100.0); Mean Platelet Volume 7.7; Monocytes # (A) 0.8 k/uL (0-1.0); Monocytes % (A) 4 %; Neutrophils # (A) 13.8 k/uL (1.3-7.7); Neutrophils % (A) 80 %; RBC 3.81 m/uL (3.80-5.40); RDW 14.8 % (11.5-15.5); WBC 17.3 k/uL (3.8-10.6); WBC (Perox) 17.35
[2017-03-21] MEDS: PANTOPRAZOLE 40 MG TABLET PO SCH (06:16)
[2017-03-21 06:27] LABS: Anion Gap 12 mmol/L; Blood Urea Nitrogen 14 mg/dL (7-17); Carbon Dioxide 22 mmol/L (22-30); Chloride 108 mmol/L (98-107); Glucose 101 mg/dL (74-99); Non-African American GFR(MDRD) >60 (>60 ml/min/1.73 sqM); Potassium 3.7 mmol/L (3.5-5.1); Sodium 142 mmol/L (137-145)
[2017-03-21] MEDS: SYMBICORT 160-4.5 MCG INHALER INHALATION SCH ×2 (08:01→20:54)
[2017-03-21] MEDS: ALBUTEROL NEBULIZED 2.5 MG/3 ML INHALATION PRN ×3 (08:01→20:54)
[2017-03-21] MEDS: HEPARIN SODIUM,PORCINE 5,000 UNIT/ML 1 ML VIAL SQ SCH ×2 (09:58→20:01)
[2017-03-21] MEDS: cefTRIAXone 2,000 MG in SODIUM CHLORIDE 0.9% 100 ML IVPB SCH ×2 (09:58→20:02)
[2017-03-21] MEDS: ACETAMINOPHEN TAB 500 MG TAB PO PRN (09:59)
[2017-03-21] MEDS ORDERED: FUROSEMIDE 10 MG/ML 4 ML VIAL IV STA (10:51)
[2017-03-21] MEDS: DOCUSATE 100 MG CAP PO SCH ×2 (12:17→20:01)
--- NOTE | 2017-03-21 13:47 | P.PN ---
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 The patient also has obstructive sleep apnea although she does not seem to be compliant to QUENTIN treatment. The patient was in hospital back in January for a left lung pneumonia for which she was seen by my partner, Dr. Peacock and the patient was treated successfully and the patient was discharged home. The patient is a lifetime nonsmoker. The patient came in yesterday to the ED for 2 days worth of increased fever although there was no documented temperature. The patient was feeling hot and cold. Denied having any headache or neck stiffness. In the emergency department the patient's temperature was all 4. Her initial Eugene Coma Scale was 15 and later stage she became slightly obtunded. At that point, a lumbar puncture was done and the results were essentially negative. The patient was admitted to the hospital on a combination of Rocephin and vancomycin. Note that the initial white count was 25.3. The patient had a lactic acid of 3.0. The rest of the electrodes were within normal limits. Currently she is complaining of increased cough and congestion and mucus production. X-ray follow-up shows development of pulmonary infiltrates on the right suggestive an underlying pneumonia. The patient was admitted to the hospital. Subsequent white cell count is up to 36.1. The electrolytes remained within normal limits. The lactic acid is down to 2.2. Urinalysis is negative. Mental status improved significantly with fluid hydration and antibiotics. I reviewed the chest x-ray and was conversive the patient is having a pneumonia. Based on that I ordered a CAT scan of the chest in view of the recurrent nature of the pneumonia and the CAT scan showed multifocal infiltrates in the right upper lobe and there is a dense consolidation in the right lower lobe. The peripheral and inferior medial aspect of the right lower lobe pulmonary infiltrate has no air bronchogram and gives a masslike appearance. A still favor atelectasis/ consolidation. Reactive adenopathy in the right hilar inguinal and paratracheal area was noted. Patient was reevaluated today on 03/20/2017, seems to be doing a bit better, less shortness of breath noted, and the patient continues to have intermittent episodes of cough, some wheezing, patient clearly has severe obstructive sleep apnea syndrome, as she was noted to fall asleep easily at the time of my examination. Apparently she does have documented obstructive sleep apnea, but the patient could not tolerate CPAP, she has one at home, but she hasn't used it in 7 years. Labs showed leukocytosis with WBC count of 26.4. Her lactic acid was 2.2 yesterday, electrolytes and renal profile are normal. Influenza type a and P were negative up on screening blood cultures are negative so far. Urine cultures are negative so far. Spinal fluid Gram stain is negative. The patient is seen again today 03/21/2017 in follow-up on the selective care unit. She is currently sitting up in the chair at the bedside. She is awake and alert in no acute distress. She states she is breathing slightly better today as compared to yesterday. Not quite back to her baseline. Her leukocytosis is improved. Current white count 17.3. An echocardiogram revealed preserved left ventricular systolic function mildly impaired with ejection fraction 45-50%. There is also moderate right-sided enlargement. Objective - Vital Signs Vital signs: Vital Signs Temp 99.0 F 03/21/17 03:50 Pulse 94 03/21/17 11:26 Resp 18 03/21/17 03:50 BP 120/84 03/21/17 03:50 Pulse Ox 98 03/21/17 08:02 Intake & Output 03/20/17 03/21/17 03/21/17 18:59 06:59 18:59 Intake Total 1380 600 120 Output Total 550 Balance 1380 600 -430 Weight 144.3 kg Intake: IV 100 600 Vancomycin 2,000 mg In 500 Sodium Chloride 0.9% 500 ml @ 167 mls/hr IVPB Q12H [facility] Rx#:[id number] cefTRIAXone 2,000 mg In 100 100 Sodium Chloride 0.9% 100 ml @ 100 mls/hr IVPB Q12HR [facility] Rx#:[id number] Intake, IV Titration 500 Amount Vancomycin 2,000 mg In 500 Sodium Chloride 0.9% 500 ml @ 167 mls/hr IVPB Q12H [facility] Rx#:[id number] Oral 780 120 Output: Urine 550 Other: Voiding Method Toilet Toilet # Voids 1 1 # Bowel Movements 1 - Exam GENERAL EXAM: Alert, active, comfortable in no apparent distress. HEAD: Normocephalic. EYES: Normal reaction of pupils, equal size. NOSE: Clear with pink turbinates. THROAT: Crowding of the posterior pharynx No erythema or exudates. NECK: Short. No masses, no JVD. CHEST: No chest wall deformity. LUNGS: Equal air entry with a cousin the posterior bases. CVS: S1 and S2 normal with no audible mumurs, regular rhythm. ABDOMEN: No hepatosplenomegaly, normal bowel sounds, no guarding or rigidity. SPINE: No scoliosis or deformity SKIN: No rashes CENTRAL NERVOUS SYSTEM: No focal deficits, tone is normal in all 4 extremities. Extremities: There is trace peripheral edema. No clubbing, no cyanosis. Peripheral pulses are intact. - Labs CBC & Chem 7: 03/21/17 05:30 03/21/17 05:30 Labs: Abnormal Lab Results - Last 24 Hours (Table) 03/21/17 03/21/17 Range/Units 05:30 05:30 WBC 17.3 H (3.8-10.6) k/uL Hgb 10.7 L (11.4-16.0) gm/dL MCHC 30.7 L (31.0-37.0) g/dL Neutrophils # 13.8 H (1.3-7.7) k/uL Chloride 108 H (98-107) mmol/L Glucose 101 H (74-99) mg/dL Microbiology - Last 24 Hours (Table) 03/18/17 08:42 Blood Culture - Preliminary Blood No Growth after 72 hours 03/19/17 21:34 Gram Stain - Preliminary Sputum 03/18/17 14:10 CSF Gram Stain - Preliminary Cerebral Spinal Fluid CSF Culture - Preliminary Assessment and Plan Plan: Impression: 1 acute sepsis secondary to a right lung pneumonia, community-acquired, 2 right lung pneumonia, Multilobar involving the right upper lobe and the left lower lobe, please refer to the CAT scan of the chest. There is also some reactive lymphadenopathy. Doubt malignancy. 3 acute leukocytosis secondary to above 4 acute lactic acidosis, improving secondary to above 5 change in mental status secondary to sepsis, improved and the lumbar puncture is negative 6 morbid obesity 7 bronchial asthma 8 obstructive sleep apnea noncompliant to CPAP therapy 9 hypothyroidism Plan: The patient was seen and evaluated by Dr. Rueda. We'll plan to repeat a chest x-ray in the a.m. If she does not make significant progress we'll plan for bronchoscopy with BAL. In the interim we'll continue with her current medications including bronchodilators, Symbicort, Singulair. She remains on antibiotics in the form of vancomycin and ceftriaxone. She is on heparin for DVT prophylaxis. We will continue to follow.
[2017-03-21] MEDS: LEVOFLOXACIN 750 MG TAB PO SCH (17:53)
--- NOTE | 2017-03-21 19:03 | P.PN ---
Subjective Date of service 03/21/2017 Progress note being dictated for Dr. Yanes. Interval history: This is a 51-year-old female admitted with fever, leukocytosis , possible acute right multilobar pneumonia, possible sepsis, hyponatremia and multiple other medical issues. Maintained on empiric antibiotics, as per infectious disease, afebrile. this morning complains of increased swelling in her arms abdomen and legs, single dose of Lasix administered.afebrile, T-max 99.3, and ABC improving currently at 17.3. Breathing improving slowly. incentive spirometer up to 1500. Denies chest pain, palpitations. Objective - Vital Signs Vital signs: Vital Signs Temp 97.8 F 03/21/17 08:00 Pulse 94 03/21/17 11:26 Resp 20 03/21/17 08:00 BP 119/70 03/21/17 08:00 Pulse Ox 98 03/21/17 08:02 Intake & Output 03/20/17 03/21/17 03/21/17 18:59 06:59 18:59 Intake Total 1380 600 240 Output Total 2024 Balance 1380 600 -1785 Weight 144.3 kg Intake: IV 100 600 Vancomycin 2,000 mg In 500 Sodium Chloride 0.9% 500 ml @ 167 mls/hr IVPB Q12H [facility] Rx#:[id number] cefTRIAXone 2,000 mg In 100 100 Sodium Chloride 0.9% 100 ml @ 100 mls/hr IVPB Q12HR [facility] Rx#:[id number] Intake, IV Titration 500 Amount Vancomycin 2,000 mg In 500 Sodium Chloride 0.9% 500 ml @ 167 mls/hr IVPB Q12H [facility] Rx#:[id number] Oral 780 240 Output: Urine 2024 Other: Voiding Method Toilet Toilet Toilet # Voids 1 1 # Bowel Movements 1 - Exam PHYSICAL EXAM: VITAL SIGNS: As above GENERAL: [Sitting up in chair, no acute distress] HEENT: [Pupils equal conjunctiva normal. Oral mucosa moist] NECK: [Supple, no JVD] RESPIRATORY EFFORT:[ Mildly increased] LUNGS: bibasilar expiratory wheezing] CARDIOVASCULAR[ regular S1 and S2, occasional mild tachycardia, no murmurs rubs or gallops, positive edema] GI: [Abdomen soft, obese, nontender, positive bowel sounds. No guarding, no rigidity] PSYCH: [Alert and oriented -3, mood and affect normal.] NEURO: No focal deficits, does all 4 extremities, strength and sensation grossly intact. Microbiology 03/18/17 08:42 Blood Blood Culture - Preliminary No Growth after 72 hours 03/19/17 21:34 Sputum Gram Stain - Preliminary 03/18/17 14:10 Cerebral Spinal Fluid CSF Gram Stain - Preliminary 03/18/17 14:10 Cerebral Spinal Fluid CSF Culture - Preliminary 03/18/17 08:55 Urine,Catheterized Urine Culture - Final - Labs CBC & Chem 7: 03/21/17 05:30 03/21/17 05:30 Labs: Abnormal Lab Results - Last 24 Hours (Table) 03/21/17 03/21/17 Range/Units 05:30 05:30 WBC 17.3 H (3.8-10.6) k/uL Hgb 10.7 L (11.4-16.0) gm/dL MCHC 30.7 L (31.0-37.0) g/dL Neutrophils # 13.8 H (1.3-7.7) k/uL Chloride 108 H (98-107) mmol/L Glucose 101 H (74-99) mg/dL Microbiology - Last 24 Hours (Table) 03/18/17 08:42 Blood Culture - Preliminary Blood No Growth after 72 hours 03/19/17 21:34 Gram Stain - Preliminary Sputum 03/18/17 14:10 CSF Gram Stain - Preliminary Cerebral Spinal Fluid CSF Culture - Preliminary Assessment and Plan Plan: 1. Fever, leukocytosis, possible acute right multilobar pneumonia with septis. 2. [ Hyponatremia]. 3. [ Increased plasma lactic acid]. 4. [ Increased bilirubin]. 5. [ Leukocytosis]. 6. [ Recent pneumonia with acute hypoxic respiratory failure and parapneumonic effusion]. 7. [ Morbid obesity, BMI 50.3 8. Anxiety, not otherwise specified Plan: Continue on current medication regime ,monitoring and symptomatic treatment. Maintained on Rocephin, vancomycin, as per infectious disease.] Follow cultures closely. as mentioned previously,potential bronchoscopy being discussedthe pulmonary. Repeat chest x-ray in a.m..Close monitoring of electrolytes, WBC with repeat labs ordered for a.m. Follow-up chest x-ray in a.m.. Further recommendations to follow. The impression and plan of care has been dictated as directed. : I performed a H&P examination of this patient and discussed the same with the dictator. I agree with the dictator's note. Any additional findings/opinions/ etc. will be noted.
[2017-03-21] MEDS: FLUTICASONE 50MCG/SPRAY NASAL 16GM EA NOSTRIL SCH (20:01)
[2017-03-21] MEDS: PARoxetine 20 MG TAB PO SCH (20:01)
[2017-03-21] MEDS: MONTELUKAST 10 MG TAB PO SCH (20:01)
[2017-03-21] MEDS: HYDROcodone/APAP 5-325MG 1 EACH TAB PO PRN (23:07)
[2017-03-22] MEDS: ACETAMINOPHEN TAB 500 MG TAB PO PRN ×2 (01:19→07:03)
[2017-03-22] MEDS: ALBUTEROL NEBULIZED 2.5 MG/3 ML INHALATION PRN ×3 (01:21→19:58)
[2017-03-22] MEDS: VANCOMYCIN 2,000 MG in SODIUM CHLORIDE 0.9% 500 ML IVPB SCH (06:05)
[2017-03-22] MEDS: LEVOTHYROXINE 100 MCG TAB PO SCH (06:05)
[2017-03-22] MEDS: PANTOPRAZOLE 40 MG TABLET PO SCH (06:06)
--- NOTE | 2017-03-22 06:06 | PN ---
DATE OF SERVICE: 03/21/2017 Reason for followup is pneumonia. INTERVAL HISTORY: The patient is afebrile. She is breathing more comfortably. Overall cough ahs decreased in intensity. ( ) productive sputum. No abdominal pain or any diarrhea. On examination, blood pressure 106/64 with the pulse of 95, temperature 98.2. She is 100% on 2 L nasal cannula. General description is a middle-age female up in the chair in no distress. RESPIRATORY SYSTEM: Unlabored breathing with decreased ( ) breath sounds. No wheeze. HEART: S1, S2. Regular rate and rhythm. ABDOMEN: Soft. No tenderness. LABS: Hemoglobin is 10.7, white count 17.3 with a BUN of 14, creatinine 0.83. Sputum culture is currently pending. Blood culture so far negative. DIAGNOSTIC IMPRESSION AND PLAN: Patient with right lower lobe pneumonia likely a community acquired, clinically doubt ( ) pathogen. She will continue on the Rocephin and Levaquin. Discontinue the vancomycin. Continue to monitor closely.
[2017-03-22 06:20] LABS: Glucose,Whole Blood 106 mg/dL (75-99)
[2017-03-22 06:35] LABS: Basophils % (A) 0 %; CHCM 33.5; Eosinophils # (A) 0.4 k/uL (0-0.7); Eosinophils % (A) 4 %; HCT 34.1 % (34.0-46.0); HDW 2.98; HGB 11.5 gm/dL (11.4-16.0); Luc # (Auto) 0.31; Luc % (Auto) 3; Lymphocytes # (A) 1.6 k/uL (1.0-4.8); Lymphocytes % (A) 14 %; MCH 29.4 pg (25.0-35.0); MCHC 33.8 g/dL (31.0-37.0); Mean Platelet Volume 7.9; Monocytes # (A) 0.8 k/uL (0-1.0); Monocytes % (A) 7 %; Neutrophils # (A) 8.5 k/uL (1.3-7.7); Neutrophils % (A) 73 %; RBC 3.92 m/uL (3.80-5.40); RDW 14.5 % (11.5-15.5); WBC 11.7 k/uL (3.8-10.6); WBC (Perox) 12.42
[2017-03-22 06:57] LABS: Anion Gap 11 mmol/L; Blood Urea Nitrogen 16 mg/dL (7-17); Calcium 9.1 mg/dL (8.4-10.2); Carbon Dioxide 27 mmol/L (22-30); Chloride 104 mmol/L (98-107); Glucose 111 mg/dL (74-99); Non-African American GFR(MDRD) >60 (>60 ml/min/1.73 sqM); Potassium 3.5 mmol/L (3.5-5.1); Sodium 142 mmol/L (137-145)
[2017-03-22] MEDS: SYMBICORT 160-4.5 MCG INHALER INHALATION SCH ×2 (08:51→19:58)
[2017-03-22] MEDS: cefTRIAXone 2,000 MG in SODIUM CHLORIDE 0.9% 100 ML IVPB SCH ×2 (09:45→20:48)
[2017-03-22] MEDS: DOCUSATE 100 MG CAP PO SCH ×2 (09:46→20:47)
[2017-03-22] MEDS: HEPARIN SODIUM,PORCINE 5,000 UNIT/ML 1 ML VIAL SQ SCH ×2 (09:46→20:49)
--- NOTE | 2017-03-22 10:37 | XR ---
EXAMINATION TYPE: XR chest 1V portable DATE OF EXAM: 03/22/2017 COMPARISON: 03/19/2017 HISTORY: Sepsis TECHNIQUE: Single frontal view of the chest is obtained. FINDINGS: Heart remains enlarged. Right hilar consolidation or mass noted. Patchy infiltrate right a pex. No pleural effusion or pneumothorax. Exam limited due to technique. IMPRESSION: 1. Multiple areas of suspected infiltrate predominantly involving the right lung. Underlying neoplasm not excluded follow-up to resolution. Hilar enlargement could be related to adenopathy.
--- NOTE | 2017-03-22 11:01 | P.PN ---
Subjective This is a morbidly obese 51-year-old female patient with known history of bronchial asthma whereas been followed up by a ward maid out of town and the [place] area. The patient also has obstructive sleep apnea although she does not seem to be compliant to QUENTIN treatment. The patient was in hospital back in January for a left lung pneumonia for which she was seen by my partner, Dr. Peacock and the patient was treated successfully and the patient was discharged home. The patient is a lifetime nonsmoker. The patient came in yesterday to the ED for 2 days worth of increased fever although there was no documented temperature. The patient was feeling hot and cold. Denied having any headache or neck stiffness. In the emergency department the patient's temperature was all 4. Her initial Enloe Coma Scale was 15 and later stage she became slightly obtunded. At that point, a lumbar puncture was done and the results were essentially negative. The patient was admitted to the hospital on a combination of Rocephin and vancomycin. Note that the initial white count was 25.3. The patient had a lactic acid of 3.0. The rest of the electrodes were within normal limits. Currently she is complaining of increased cough and congestion and mucus production. X-ray follow-up shows development of pulmonary infiltrates on the right suggestive an underlying pneumonia. The patient was admitted to the hospital. Subsequent white cell count is up to 36.1. The electrolytes remained within normal limits. The lactic acid is down to 2.2. Urinalysis is negative. Mental status improved significantly with fluid hydration and antibiotics. I reviewed the chest x-ray and was conversive the patient is having a pneumonia. Based on that I ordered a CAT scan of the chest in view of the recurrent nature of the pneumonia and the CAT scan showed multifocal infiltrates in the right upper lobe and there is a dense consolidation in the right lower lobe. The peripheral and inferior medial aspect of the right lower lobe pulmonary infiltrate has no air bronchogram and gives a masslike appearance. A still favor atelectasis/ consolidation. Reactive adenopathy in the right hilar inguinal and paratracheal area was noted. Patient was reevaluated today on 03/20/2017, seems to be doing a bit better, less shortness of breath noted, and the patient continues to have intermittent episodes of cough, some wheezing, patient clearly has severe obstructive sleep apnea syndrome, as she was noted to fall asleep easily at the time of my examination. Apparently she does have documented obstructive sleep apnea, but the patient could not tolerate CPAP, she has one at home, but she hasn't used it in 7 years. Labs showed leukocytosis with WBC count of 26.4. Her lactic acid was 2.2 yesterday, electrolytes and renal profile are normal. Influenza type a and P were negative up on screening blood cultures are negative so far. Urine cultures are negative so far. Spinal fluid Gram stain is negative. The patient is seen again today 03/21/2017 in follow-up on the selective care unit. She is currently sitting up in the chair at the bedside. She is awake and alert in no acute distress. She states she is breathing slightly better today as compared to yesterday. Not quite back to her baseline. Her leukocytosis is improved. Current white count 17.3. An echocardiogram revealed preserved left ventricular systolic function mildly impaired with ejection fraction 45-50%. There is also moderate right-sided enlargement. The patient is seen again today 03/22/2017 in follow-up on the selective care unit. She is awake and alert in no acute distress. Unfortunately her reading has not improved significantly. She still has a loose nonproductive cough. She is dyspneic on exertion. He is maintaining good O2 saturations in the upper 90s on 2 L/m per nasal cannula. She's been afebrile. Hemodynamically stable. Her white count is improving currently 11.7. Sputum, CSF, urine and blood cultures are revealing no growth. She has been covered with vancomycin, Levaquin and ceftriaxone. Chest x-ray continues to show multiple areas of suspected infiltrate predominantly involving the right lung. Underlying neoplasm is not totally excluded. Objective - Vital Signs Vital signs: Vital Signs Temp 98.1 F 03/22/17 09:35 Pulse 70 03/22/17 09:48 Resp 16 03/22/17 09:35 BP 122/79 03/22/17 09:35 Pulse Ox 98 03/22/17 09:48 Intake & Output 03/21/17 03/22/17 03/22/17 18:59 06:59 18:59 Intake Total 240 940 Output Total 2025 600 Balance -1785 340 Intake: IV 600 Vancomycin 2,000 mg In 500 Sodium Chloride 0.9% 500 ml @ 167 mls/hr IVPB Q12H [facility] Rx#:[id number] cefTRIAXone 2,000 mg In 100 Sodium Chloride 0.9% 100 ml @ 100 mls/hr IVPB Q12HR [facility] Rx#:[id number] Oral 240 340 Output: Urine 2024 600 Other: Voiding Method Toilet Toilet # Voids 1 3 # Bowel Movements 1 - Exam GENERAL EXAM: Alert, active, comfortable in no apparent distress. HEAD: Normocephalic. EYES: Normal reaction of pupils, equal size. NOSE: Clear with pink turbinates. THROAT: Crowding of the posterior pharynx No erythema or exudates. NECK: Short. No masses, no JVD. CHEST: No chest wall deformity. LUNGS: Equal air entry with few scattered rhonchi and crackles at the posterior bases. CVS: S1 and S2 normal with no audible murmurs, regular rhythm. ABDOMEN: No hepatosplenomegaly, normal bowel sounds, no guarding or rigidity. SPINE: No scoliosis or deformity SKIN: No rashes CENTRAL NERVOUS SYSTEM: No focal deficits, tone is normal in all 4 extremities. Extremities: There is trace peripheral edema. No clubbing, no cyanosis. Peripheral pulses are intact. - Labs CBC & Chem 7: 03/22/17 05:47 03/22/17 06:06 Labs: Abnormal Lab Results - Last 24 Hours (Table) 03/22/17 03/22/17 03/22/17 Range/Units 05:47 06:06 06:08 WBC 11.7 H (3.8-10.6) k/uL Neutrophils # 8.5 H (1.3-7.7) k/uL Glucose 111 H (74-99) mg/dL POC Glucose (mg/dL) 106 H (75-99) mg/dL Microbiology - Last 24 Hours (Table) 03/18/17 08:42 Blood Culture - Preliminary Blood No Growth after 96 hours 03/19/17 21:34 Gram Stain - Final Sputum Sputum Culture - Final 03/18/17 14:10 CSF Gram Stain - Preliminary Cerebral Spinal Fluid CSF Culture - Preliminary Assessment and Plan Plan: Impression: 1 acute sepsis secondary to a right lung pneumonia, community-acquired, 2 right lung pneumonia, Multilobar involving the right upper lobe and the left lower lobe, please refer to the CAT scan of the chest. There is also some reactive lymphadenopathy. Doubt malignancy. 3 acute leukocytosis secondary to above 4 acute lactic acidosis, improving secondary to above 5 change in mental status secondary to sepsis, improved and the lumbar puncture is negative 6 morbid obesity 7 bronchial asthma 8 obstructive sleep apnea noncompliant to CPAP therapy 9 hypothyroidism Plan: The patient was seen and evaluated by Dr. Rueda. Her chest x-ray continues to show multiple areas of suspected infiltrate predominantly involving the right lung. Underlying neoplasm is not totally excluded. We'll plan for bronchoscopy in the a.m. In the interim we'll continue with her current medications including bronchodilators, Symbicort, Singulair. She remains on antibiotics in the form of vancomycin, Levaquin and ceftriaxone. She is on heparin for DVT prophylaxis. We will continue to follow.
[2017-03-22] MEDS ORDERED: ONDANSETRON 4 MG/2 ML VIAL IVP PRN (11:23)
--- NOTE | 2017-03-22 14:28 | P.PN ---
Subjective Date of service 03/22/2017 Progress note being dictated for Dr. Yanes. Interval history: This is a 51-year-old female admitted with fever, leukocytosis , possible acute right multilobar pneumonia, possible sepsis, hyponatremia and multiple other medical issues. Maintained on empiric antibiotics, as per infectious disease, afebrile, and ABC 11.7. Chest x-ray reporting multiple areas of suspected infiltrate predominantly right lung, underlying neoplasm not excluded, hilar enlargement possibly related to adenopathy. Exertional shortness of breath. Continues to have occasional loose nonproductive cough. Scheduled for bronchoscopy tomorrow with pulmonary. Denies chest pain, palpitations. Objective - Vital Signs Vital signs: Vital Signs Temp 98.1 F 03/22/17 11:46 Pulse 82 03/22/17 11:46 Resp 20 03/22/17 11:46 BP 131/91 03/22/17 11:46 Pulse Ox 98 03/22/17 11:49 Intake & Output 03/21/17 03/22/17 03/22/17 18:59 06:59 18:59 Intake Total 240 940 Output Total 2025 600 300 Balance -1785 340 -300 Intake: IV 600 Vancomycin 2,000 mg In 500 Sodium Chloride 0.9% 500 ml @ 167 mls/hr IVPB Q12H [facility] Rx#:[id number] cefTRIAXone 2,000 mg In 100 Sodium Chloride 0.9% 100 ml @ 100 mls/hr IVPB Q12HR [facility] Rx#:[id number] Oral 240 340 Output: Urine 2024 600 300 Other: Voiding Method Toilet Toilet Toilet # Voids 1 3 # Bowel Movements 1 - Exam PHYSICAL EXAM: VITAL SIGNS: As above GENERAL: [Sitting up in chair, no acute distress] HEENT: [Pupils equal conjunctiva normal. Oral mucosa moist] NECK: [Supple, no JVD] RESPIRATORY EFFORT:[ Mildly increased] LUNGS: Diminished, occasional scattered rhonchi, bilateral bibasilar crackles CARDIOVASCULAR[ regular S1 and S2, occasional mild tachycardia, no murmurs rubs or gallops, positive edema] GI: [Abdomen soft, obese, nontender, positive bowel sounds. No guarding, no rigidity] PSYCH: [Alert and oriented -3, mood and affect normal.] NEURO: No focal deficits, does all 4 extremities, strength and sensation grossly intact. Microbiology 03/18/17 08:42 Blood Blood Culture - Preliminary No Growth after 72 hours 03/19/17 21:34 Sputum Gram Stain - Preliminary 03/18/17 14:10 Cerebral Spinal Fluid CSF Gram Stain - Preliminary 03/18/17 14:10 Cerebral Spinal Fluid CSF Culture - Preliminary 03/18/17 08:55 Urine,Catheterized Urine Culture - Final - Labs CBC & Chem 7: 03/22/17 05:47 03/22/17 06:06 Labs: Abnormal Lab Results - Last 24 Hours (Table) 03/22/17 03/22/17 03/22/17 Range/Units 05:47 06:06 06:08 WBC 11.7 H (3.8-10.6) k/uL Neutrophils # 8.5 H (1.3-7.7) k/uL Glucose 111 H (74-99) mg/dL POC Glucose (mg/dL) 106 H (75-99) mg/dL Microbiology - Last 24 Hours (Table) 03/18/17 08:42 Blood Culture - Preliminary Blood No Growth after 96 hours 03/19/17 21:34 Gram Stain - Final Sputum Sputum Culture - Final 03/18/17 14:10 CSF Gram Stain - Preliminary Cerebral Spinal Fluid CSF Culture - Preliminary Assessment and Plan Plan: 1. Fever, leukocytosis, possible acute right multilobar pneumonia with septis. 2. [ Hyponatremia]. 3. [ Increased plasma lactic acid]. 4. [ Increased bilirubin]. 5. [ Leukocytosis]. 6. [ Recent pneumonia with acute hypoxic respiratory failure and parapneumonic effusion]. 7. [ Morbid obesity, BMI 50.3 8. Anxiety, not otherwise specified Plan: Continue on current medication regime ,monitoring and symptomatic treatment. Maintained on Rocephin, Levaquin, as per infectious disease.] Follow cultures closely. Bronchoscopy scheduled for tomorrow.Close monitoring of electrolytes, WBC with repeat labs ordered for a.m. Further recommendations to follow. The impression and plan of care has been dictated as directed. : I performed a H&P examination of this patient and discussed the same with the dictator. I agree with the dictator's note. Any additional findings/opinions/ etc. will be noted.
[2017-03-22] MEDS: LEVOFLOXACIN 750 MG TAB PO SCH (17:16)
[2017-03-22] MEDS: FLUTICASONE 50MCG/SPRAY NASAL 16GM EA NOSTRIL SCH (20:48)
[2017-03-22] MEDS: MONTELUKAST 10 MG TAB PO SCH (20:49)
[2017-03-22] MEDS: PARoxetine 20 MG TAB PO SCH (20:49)
[2017-03-23] MEDS: PANTOPRAZOLE 40 MG TABLET PO SCH (02:25)
[2017-03-23] MEDS: LEVOTHYROXINE 100 MCG TAB PO SCH (02:25)
--- NOTE | 2017-03-23 05:23 | PN ---
DATE OF SERVICE: 03/22/2017 Reason for followup is pneumonia. INTERVAL HISTORY: The patient is afebrile. She is breathing comfortably. She still has some cough, bringing up some blood-tinged sputum. No chest pain. No abdominal pain. No nausea, vomiting or any diarrhea. On examination, blood pressure is 140/78 with a pulse of 84, temperature 97.4. She is 100% on 2 L nasal cannula. General description is a middle aged female, up in the chair in no distress. RESPIRATORY SYSTEM: Unlabored breathing with decreased breath sounds at the bases. HEART: S1, S2. Regular rate and rhythm. ABDOMEN: Soft, no tenderness. EXTREMITIES: No edema of feet. LABS: Hemoglobin 11.5, white count 11.7 with a BUN of 16, creatinine 0.69. Sputum cultures so far negative. DIAGNOSTIC IMPRESSION AND PLAN: Patient with multifocal infiltrate right upper lobe and ( ) right lower lobe, likely community-acquired pathogen. Sputum had been negative for resistant pathogen. The patient at this time is covered with Rocephin and Levaquin that will be continued. Plan for possible bronchoscopy in the morning. ( ) to finish therapy with oral antibiotics. Continue supportive care.
[2017-03-23 07:23] LABS: Anion Gap 11 mmol/L; Blood Urea Nitrogen 16 mg/dL (7-17); Carbon Dioxide 28 mmol/L (22-30); Chloride 105 mmol/L (98-107); Glucose 104 mg/dL (74-99); Non-African American GFR(MDRD) >60 (>60 ml/min/1.73 sqM); Potassium 3.1 mmol/L (3.5-5.1); Sodium 144 mmol/L (137-145)
[2017-03-23] MEDS: ALBUTEROL NEBULIZED 2.5 MG/3 ML INHALATION PRN ×2 (07:43→19:22)
[2017-03-23] MEDS: SYMBICORT 160-4.5 MCG INHALER INHALATION SCH ×2 (07:43→19:22)
[2017-03-23 07:50] LABS: Basophils # (A) 0.1 k/uL (0-0.2); Basophils % (A) 1 %; CH 28.7; CHCM 32.2; Eosinophils # (A) 0.5 k/uL (0-0.7); Eosinophils % (A) 5 %; HCT 33.9 % (34.0-46.0); HDW 2.78; HGB 10.9 gm/dL (11.4-16.0); Luc % (Auto) 2; Lymphocytes % (A) 19 %; MCH 28.7 pg (25.0-35.0); MCHC 32.1 g/dL (31.0-37.0); MCV 89.4 fL (80.0-100.0); Mean Platelet Volume 7.8; Monocytes # (A) 0.9 k/uL (0-1.0); Monocytes % (A) 9 %; Neutrophils % (A) 66 %; RDW 14.6 % (11.5-15.5); WBC 10.6 k/uL (3.8-10.6); WBC (Perox) 10.76
[2017-03-23] MEDS: cefTRIAXone 2,000 MG in SODIUM CHLORIDE 0.9% 100 ML IVPB SCH ×2 (10:25→20:29)
[2017-03-23] MEDS: DOCUSATE 100 MG CAP PO SCH ×3 (10:25→20:30)
[2017-03-23] MEDS: HEPARIN SODIUM,PORCINE 5,000 UNIT/ML 1 ML VIAL SQ SCH ×2 (10:25→20:29)
[2017-03-23] MEDS ORDERED: IV FLUID CONTINUATION 1,000 ML IV ONE (12:16)
[2017-03-23] MEDS ORDERED: PROPOFOL 10 MG/ML 20 ML VIAL IV ONE (12:19)
[2017-03-23] MEDS ORDERED: LIDOCAINE 1% INJ 10MG/ML (20 ML MDV) ONE (12:19)
--- NOTE | 2017-03-23 12:24 | P.PN ---
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 The patient also has obstructive sleep apnea although she does not seem to be compliant to QUENTIN treatment. The patient was in hospital back in January for a left lung pneumonia for which she was seen by my partner, Dr. Peacock and the patient was treated successfully and the patient was discharged home. The patient is a lifetime nonsmoker. The patient came in yesterday to the ED for 2 days worth of increased fever although there was no documented temperature. The patient was feeling hot and cold. Denied having any headache or neck stiffness. In the emergency department the patient's temperature was all 4. Her initial Barnum Coma Scale was 15 and later stage she became slightly obtunded. At that point, a lumbar puncture was done and the results were essentially negative. The patient was admitted to the hospital on a combination of Rocephin and vancomycin. Note that the initial white count was 25.3. The patient had a lactic acid of 3.0. The rest of the electrodes were within normal limits. Currently she is complaining of increased cough and congestion and mucus production. X-ray follow-up shows development of pulmonary infiltrates on the right suggestive an underlying pneumonia. The patient was admitted to the hospital. Subsequent white cell count is up to 36.1. The electrolytes remained within normal limits. The lactic acid is down to 2.2. Urinalysis is negative. Mental status improved significantly with fluid hydration and antibiotics. I reviewed the chest x-ray and was conversive the patient is having a pneumonia. Based on that I ordered a CAT scan of the chest in view of the recurrent nature of the pneumonia and the CAT scan showed multifocal infiltrates in the right upper lobe and there is a dense consolidation in the right lower lobe. The peripheral and inferior medial aspect of the right lower lobe pulmonary infiltrate has no air bronchogram and gives a masslike appearance. A still favor atelectasis/ consolidation. Reactive adenopathy in the right hilar inguinal and paratracheal area was noted. Patient was reevaluated today on 03/20/2017, seems to be doing a bit better, less shortness of breath noted, and the patient continues to have intermittent episodes of cough, some wheezing, patient clearly has severe obstructive sleep apnea syndrome, as she was noted to fall asleep easily at the time of my examination. Apparently she does have documented obstructive sleep apnea, but the patient could not tolerate CPAP, she has one at home, but she hasn't used it in 7 years. Labs showed leukocytosis with WBC count of 26.4. Her lactic acid was 2.2 yesterday, electrolytes and renal profile are normal. Influenza type a and P were negative up on screening blood cultures are negative so far. Urine cultures are negative so far. Spinal fluid Gram stain is negative. The patient is seen again today 03/21/2017 in follow-up on the selective care unit. She is currently sitting up in the chair at the bedside. She is awake and alert in no acute distress. She states she is breathing slightly better today as compared to yesterday. Not quite back to her baseline. Her leukocytosis is improved. Current white count 17.3. An echocardiogram revealed preserved left ventricular systolic function mildly impaired with ejection fraction 45-50%. There is also moderate right-sided enlargement. The patient is seen again today 03/22/2017 in follow-up on the selective care unit. She is awake and alert in no acute distress. Unfortunately her reading has not improved significantly. She still has a loose nonproductive cough. She is dyspneic on exertion. He is maintaining good O2 saturations in the upper 90s on 2 L/m per nasal cannula. She's been afebrile. Hemodynamically stable. Her white count is improving currently 11.7. Sputum, CSF, urine and blood cultures are revealing no growth. She has been covered with vancomycin, Levaquin and ceftriaxone. Chest x-ray continues to show multiple areas of suspected infiltrate predominantly involving the right lung. Underlying neoplasm is not totally excluded. The patient is seen again today 03/23/2017 in follow-up on the selective care unit. She is currently sitting up in bed. She is awake and alert in no acute distress. She continues with a loose nonproductive cough. She remains on ceftriaxone and Levaquin. Her white count has recovered currently 10.6. Hemoglobin stable 10.9. The plan is for bronchoscopy with BAL today with Dr. Rueda. Objective - Vital Signs Vital signs: Vital Signs Temp 98.3 F 03/23/17 12:00 Pulse 87 03/23/17 12:00 Resp 18 03/23/17 12:00 BP 115/63 03/23/17 12:00 Pulse Ox 98 03/23/17 12:00 Intake & Output 03/22/17 03/23/17 03/23/17 18:59 06:59 18:59 Intake Total 222 110 Output Total 600 400 Balance -378 -290 Weight 141 kg Intake: IV 110 0.9% NS FLUSH 10 cefTRIAXone 2,000 mg In 100 Sodium Chloride 0.9% 100 ml @ 100 mls/hr IVPB Q12HR [facility] Rx#:[id number] Oral 222 Output: Urine 600 400 Other: Voiding Method Toilet Toilet # Voids 1 # Bowel Movements 0 - Exam GENERAL EXAM: Alert, active, comfortable in no apparent distress. HEAD: Normocephalic. EYES: Normal reaction of pupils, equal size. NOSE: Clear with pink turbinates. THROAT: Crowding of the posterior pharynx No erythema or exudates. NECK: Short. No masses, no JVD. CHEST: No chest wall deformity. LUNGS: Equal air entry with few scattered rhonchi and crackles at the posterior bases. CVS: S1 and S2 normal with no audible murmurs, regular rhythm. ABDOMEN: No hepatosplenomegaly, normal bowel sounds, no guarding or rigidity. SPINE: No scoliosis or deformity SKIN: No rashes CENTRAL NERVOUS SYSTEM: No focal deficits, tone is normal in all 4 extremities. Extremities: There is trace peripheral edema. No clubbing, no cyanosis. Peripheral pulses are intact. - Labs CBC & Chem 7: 03/23/17 06:46 03/23/17 06:46 Labs: Abnormal Lab Results - Last 24 Hours (Table) 03/23/17 03/23/17 Range/Units 06:46 06:46 Hgb 10.9 L (11.4-16.0) gm/dL Hct 33.9 L (34.0-46.0) % Potassium 3.1 L (3.5-5.1) mmol/L Glucose 104 H (74-99) mg/dL Microbiology - Last 24 Hours (Table) 03/18/17 08:42 Blood Culture - Preliminary Blood No Growth after 120 hours 03/18/17 14:10 CSF Gram Stain - Final Cerebral Spinal Fluid CSF Culture - Final 03/19/17 21:34 Gram Stain - Final Sputum Sputum Culture - Final Assessment and Plan Plan: Impression: 1 acute sepsis secondary to a right lung pneumonia, community-acquired, 2 right lung pneumonia, Multilobar involving the right upper lobe and the left lower lobe, please refer to the CAT scan of the chest. There is also some reactive lymphadenopathy. Doubt malignancy. 3 acute leukocytosis secondary to above 4 acute lactic acidosis, improving secondary to above 5 change in mental status secondary to sepsis, improved and the lumbar puncture is negative 6 morbid obesity 7 bronchial asthma 8 obstructive sleep apnea noncompliant to CPAP therapy 9 hypothyroidism Plan: The patient was seen and evaluated by Dr. Rueda. Her chest x-ray continues to show multiple areas of suspected infiltrate predominantly involving the right lung. Underlying neoplasm is not totally excluded. The plan is for bronchoscopy with BAL today. She remains on antibiotics in the form of Levaquin and ceftriaxone. She is on heparin for DVT prophylaxis. We will continue to follow.
[2017-03-23] MEDS ORDERED: Potassium Replacement Protocol 1 EACH MISC MISCELLANE PRN (12:29)
[2017-03-23] MEDS: ACETAMINOPHEN TAB 500 MG TAB PO PRN (13:17)
[2017-03-23] MEDS: POTASSIUM CHLORIDE ER 20 MEQ TAB.ER PO SCH ×2 (13:40→15:00)
[2017-03-23 15:05] LABS: RBC, Body Fluid 13900 /uL
[2017-03-23] MEDS: LEVOFLOXACIN 750 MG TAB PO SCH (17:38)
--- NOTE | 2017-03-23 18:44 | PN ---
51 -year-old admitted to the hospital with multi lobar pneumonia. The patient is undergoing a bronchoscopy today because of nonimprovement in her symptoms. REVIEW OF SYSTEMS: CARDIOVASCULAR: No chest pain, no orthopnea, no PND, no palpitations. PULMONARY: Improving. The patient is feeling much better. GASTROINTESTINAL: No diarrhea, nausea or vomiting. No abdominal pain. Normoactive bowel sounds. NEUROLOGIC: No headaches, no weakness, no numbness. PHYSICAL EXAMINATION: VITAL SIGNS: Temperature 97.9, pulse of 90, respiratory rate of 18, blood pressure is 120/72, saturating at 97% on 2 L O2 by nasal cannula. GENERAL: The patient is alert and oriented x3, not in any acute distress. Well developed, well nourished. HEENT: Pupils are round and equally reacting to light. EOMI. No scleral icterus. No conjunctival pallor. Normocephalic, atraumatic. No pharyngeal erythema. No thyromegaly. CARDIOVASCULAR: S1 and S2 present. No murmurs, rubs, or gallops. PULMONARY: Bilateral scattered rhonchi was appreciated. Bilateral bibasilar crackles were appreciated. Fairly good air entry into bilateral lung myers. No wheezing was appreciated. ABDOMEN: Soft, nontender, nondistended, normoactive bowel sounds. No palpable organomegaly. MUSCULOSKELETAL: No joint swelling or deformity. EXTREMITIES: No cyanosis, clubbing, or pedal edema. NEUROLOGICAL: Gross neurological examination did not reveal any focal deficits. SKIN: No rashes. LABORATORY DATA: CBC ( ) laboratory are abnormal for low potassium which will be supplemented. Hemoglobin 10.9 and stable. ASSESSMENT AND PLAN: 1. Right-sided multilobar pneumonia and sepsis secondary to pneumonia. Patient will be continued on present antibiotics, bronchoscopy today. So far the cultures are negative. 2. Hyponatremia hypovolemic hyponatremia which improved. 3. Morbid obesity. Counseling was provided. 4. Anxiety disorder.
[2017-03-23] MEDS: PARoxetine 20 MG TAB PO SCH (20:29)
[2017-03-23] MEDS: MONTELUKAST 10 MG TAB PO SCH (20:29)
[2017-03-23] MEDS: FLUTICASONE 50MCG/SPRAY NASAL 16GM EA NOSTRIL SCH (20:30)
--- NOTE | 2017-03-23 22:55 | PCN ---
DATE OF PROCEDURE: PROCEDURE: Bronchoscopy and random bronchial washings from both lungs. PREOPERATIVE DIAGNOSIS: Multifocal pneumonia. POSTOPERATIVE DIAGNOSIS: Multifocal pneumonia. ANESTHESIA USED: Please refer to [employer] [facility] documentation. Patient was given IV conscious sedation. PROCEDURE: Patient was prepared according to bronchoscopy protocol. Oxygen was applied via nasal cannula. Prior to the procedure, we monitored oxygen saturation via pulse oximetry. Blood pressure was intermittently monitored and cardiac rhythm was continuously monitored. After adequate sedation, a bite block was applied and secured. Then the bronchoscope was advanced through the bite block down to the area of the oropharynx. There was evidence of significant redundant tissue above and around the vocal cords. I was able to visualize the vocal cords. Lidocaine was applied over the vocal cords. The bronchoscope was advanced further down. Examination of the trachea, right upper lobe, right middle lobe, right lower lobe, left upper lobe, lingula and left lower lobe was performed. There was evidence of some purulent secretions scattered in both lungs, more so in the right lower lobe. Lavage in the right lower lobe was done. Random washings were obtained from different lobes. Fluid was sent for different diagnostic studies. Procedure was well tolerated. No evidence of any immediate complications.
[2017-03-24] MEDS: LEVOTHYROXINE 100 MCG TAB PO SCH (06:06)
--- NOTE | 2017-03-24 07:19 | PN ---
DATE OF SERVICE: 03/23/2017 Reason for follow-up is pneumonia. INTERVAL HISTORY: The patient is afebrile. The patient is status post bronch. She was seen after the bronch where patient remained slightly lethargic. Denies significant chest pain. Occasional cough. No abdominal pain or diarrhea. On examination, blood pressure 120/72 with a pulse of 83. Temperature 97.9. She is 97% on 2-L nasal cannula. General description is a middle-aged female lying in bed in no distress. RESPIRATORY SYSTEM: Unlabored breathing. Clear to auscultation anteriorly. HEART: S1, S2. Regular rate and rhythm. ABDOMEN: Soft, no tenderness. LABS: Hemoglobin 10.8, white count 10.6 with BUN 16, creatinine 0.72. Bronch cultures currently pending. DIAGNOSTIC IMPRESSION AND PLAN: Patient with pneumonia, likely community-acquired. Chest CT raises possibility of possible mass, status post bronch. Awaiting for the culture to finalize. Currently on Rocephin and that will be continued. Antibiotics will be further adjusted if needed based on the culture report. Continue supportive care.
[2017-03-24] MEDS: SYMBICORT 160-4.5 MCG INHALER INHALATION SCH (07:24)
[2017-03-24] MEDS: cefTRIAXone 2,000 MG in SODIUM CHLORIDE 0.9% 100 ML IVPB SCH (08:26)
[2017-03-24] MEDS: HEPARIN SODIUM,PORCINE 5,000 UNIT/ML 1 ML VIAL SQ SCH (08:27)
[2017-03-24] MEDS: DOCUSATE 100 MG CAP PO SCH (08:27)
[2017-03-24] MEDS: PANTOPRAZOLE 40 MG TABLET PO SCH (08:27)
[2017-03-24 08:40] VITALS: BP 142/96; PULSE 77; RESP 20; TEMP 97.6
[2017-03-24 11:35] VITALS: BMI 50.1
--- NOTE | 2017-03-24 13:39 | P.PN ---
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 The patient also has obstructive sleep apnea although she does not seem to be compliant to QUENTIN treatment. The patient was in hospital back in January for a left lung pneumonia for which she was seen by my partner, Dr. Peacock and the patient was treated successfully and the patient was discharged home. The patient is a lifetime nonsmoker. The patient came in yesterday to the ED for 2 days worth of increased fever although there was no documented temperature. The patient was feeling hot and cold. Denied having any headache or neck stiffness. In the emergency department the patient's temperature was all 4. Her initial Mccleary Coma Scale was 15 and later stage she became slightly obtunded. At that point, a lumbar puncture was done and the results were essentially negative. The patient was admitted to the hospital on a combination of Rocephin and vancomycin. Note that the initial white count was 25.3. The patient had a lactic acid of 3.0. The rest of the electrodes were within normal limits. Currently she is complaining of increased cough and congestion and mucus production. X-ray follow-up shows development of pulmonary infiltrates on the right suggestive an underlying pneumonia. The patient was admitted to the hospital. Subsequent white cell count is up to 36.1. The electrolytes remained within normal limits. The lactic acid is down to 2.2. Urinalysis is negative. Mental status improved significantly with fluid hydration and antibiotics. I reviewed the chest x-ray and was conversive the patient is having a pneumonia. Based on that I ordered a CAT scan of the chest in view of the recurrent nature of the pneumonia and the CAT scan showed multifocal infiltrates in the right upper lobe and there is a dense consolidation in the right lower lobe. The peripheral and inferior medial aspect of the right lower lobe pulmonary infiltrate has no air bronchogram and gives a masslike appearance. A still favor atelectasis/ consolidation. Reactive adenopathy in the right hilar inguinal and paratracheal area was noted. Patient was reevaluated today on 03/20/2017, seems to be doing a bit better, less shortness of breath noted, and the patient continues to have intermittent episodes of cough, some wheezing, patient clearly has severe obstructive sleep apnea syndrome, as she was noted to fall asleep easily at the time of my examination. Apparently she does have documented obstructive sleep apnea, but the patient could not tolerate CPAP, she has one at home, but she hasn't used it in 7 years. Labs showed leukocytosis with WBC count of 26.4. Her lactic acid was 2.2 yesterday, electrolytes and renal profile are normal. Influenza type a and P were negative up on screening blood cultures are negative so far. Urine cultures are negative so far. Spinal fluid Gram stain is negative. The patient is seen again today 03/21/2017 in follow-up on the selective care unit. She is currently sitting up in the chair at the bedside. She is awake and alert in no acute distress. She states she is breathing slightly better today as compared to yesterday. Not quite back to her baseline. Her leukocytosis is improved. Current white count 17.3. An echocardiogram revealed preserved left ventricular systolic function mildly impaired with ejection fraction 45-50%. There is also moderate right-sided enlargement. The patient is seen again today 03/22/2017 in follow-up on the selective care unit. She is awake and alert in no acute distress. Unfortunately her reading has not improved significantly. She still has a loose nonproductive cough. She is dyspneic on exertion. He is maintaining good O2 saturations in the upper 90s on 2 L/m per nasal cannula. She's been afebrile. Hemodynamically stable. Her white count is improving currently 11.7. Sputum, CSF, urine and blood cultures are revealing no growth. She has been covered with vancomycin, Levaquin and ceftriaxone. Chest x-ray continues to show multiple areas of suspected infiltrate predominantly involving the right lung. Underlying neoplasm is not totally excluded. The patient is seen again today 03/23/2017 in follow-up on the selective care unit. She is currently sitting up in bed. She is awake and alert in no acute distress. She continues with a loose nonproductive cough. She remains on ceftriaxone and Levaquin. Her white count has recovered currently 10.6. Hemoglobin stable 10.9. The plan is for bronchoscopy with BAL today with Dr. Rueda. The patient is seen again today 03/24/2017 on the regular medical floor. She is awake and alert in no acute distress. She did undergo bronchoscopy with BAL with Dr. Rueda yesterday. Cultures are pending. Today's chest x-ray does show improvement in the right hilar infiltrate. She denies any worsening shortness of breath, cough or congestion. She has been afebrile. Maintaining good O2 saturations in the high 90s on 2 L/m per nasal cannula. Hemodynamically stable. She is anxious to go home. Objective - Vital Signs Vital signs: Vital Signs Temp 97.6 F 03/24/17 07:00 Pulse 77 03/24/17 08:00 Resp 20 03/24/17 08:00 BP 142/96 03/24/17 07:00 Pulse Ox 97 03/24/17 07:00 Intake & Output 03/23/17 03/24/17 03/24/17 18:59 06:59 18:59 Intake Total 600 Output Total 400 Balance 200 Weight 141 kg 141 kg Intake: IV 200 Oral 400 Output: Urine 400 Other: Voiding Method Toilet Toilet Toilet # Voids 3 3 # Bowel Movements 0 - Exam GENERAL EXAM: Alert, active, comfortable in no apparent distress. HEAD: Normocephalic. EYES: Normal reaction of pupils, equal size. NOSE: Clear with pink turbinates. THROAT: Crowding of the posterior pharynx No erythema or exudates. NECK: Short. No masses, no JVD. CHEST: No chest wall deformity. LUNGS: Equal air entry with few scattered rhonchi and crackles at the posterior bases. CVS: S1 and S2 normal with no audible murmurs, regular rhythm. ABDOMEN: No hepatosplenomegaly, normal bowel sounds, no guarding or rigidity. SPINE: No scoliosis or deformity SKIN: No rashes CENTRAL NERVOUS SYSTEM: No focal deficits, tone is normal in all 4 extremities. Extremities: There is trace peripheral edema. No clubbing, no cyanosis. Peripheral pulses are intact. - Labs CBC & Chem 7: 03/23/17 06:46 03/23/17 19:19 Labs: Microbiology - Last 24 Hours (Table) 03/23/17 12:20 Gram Stain - Preliminary Bronchial Washings - Random Bronchial Washings Culture - Preliminary Liliana albicans 03/18/17 08:42 Blood Culture - Final Blood No Growth after 144 hours 03/23/17 12:20 Fungal Culture - Preliminary Bronchial Washings - Random 03/23/17 12:20 Acid Fast Bacilli Culture - Preliminary Bronchial Washings - Random Assessment and Plan Plan: Impression: 1 acute sepsis secondary to a right lung pneumonia, community-acquired, 2 right lung pneumonia, Multilobar involving the right upper lobe and the left lower lobe, please refer to the CAT scan of the chest. There is also some reactive lymphadenopathy. Doubt malignancy. 3 acute leukocytosis secondary to above 4 acute lactic acidosis, improving secondary to above 5 change in mental status secondary to sepsis, improved and the lumbar puncture is negative 6 morbid obesity 7 bronchial asthma 8 obstructive sleep apnea noncompliant to CPAP therapy 9 hypothyroidism Plan: The patient was seen and evaluated by Dr. Rueda. Her chest x-ray shows improvement of the areas of suspected infiltrate predominantly involving the right lung. She is cleared for discharge from the pulmonary standpoint. Antibiotics per ID. We'll see her in the office in 1-2 weeks' time. We'll repeat a chest x-ray then. She is however encouraged to call sooner with any recurrence of symptoms or other questions or concerns.
--- NOTE | 2017-03-24 15:32 | XR ---
EXAMINATION TYPE: XR chest 2V DATE OF EXAM: 03/24/2017 COMPARISON: Prior chest x-ray 03/22/2017 HISTORY: Follow-up right hilar consolidation, abnormal chest x-ray, pneumonia TECHNIQUE: Frontal and lateral views of the chest are obtained. FINDINGS: Patient is rotated. No pneumothorax or pleural effusion is evident. The heart is enlarged. Perihilar increased density may have improved in the interval. IMPRESSION: There may be some improvement in aeration although the patient is rotated. PA and latera l chest x-ray may be of benefit.
--- NOTE | 2017-03-24 15:56 | PN ---
DATE OF SERVICE: 03/24/2017 REASON FOR FOLLOWUP: Pneumonia. INTERVAL HISTORY: The patient is afebrile. Overall her breathing has been feeling better with the cough decreased in intensity. She is complaining of some queasiness in the abdominal area, but no nausea, vomiting or any diarrhea mentioned. On examination, blood pressure is 142/96 with a pulse of 77, temperature 97.6. She is 97% on 2 L nasal cannula. General description is a middle-aged female up in the chair in no distress. RESPIRATORY SYSTEM: Unlabored breathing. Clear to auscultation anteriorly. HEART: S1, S2. Regular rate and rhythm. ABDOMEN: Soft. No tenderness. LABS: Hemoglobin is 10.9 with a white count of 10.6 with a BUN of 16, creatinine 0.72. Bronchoscopy cultures are currently pending. Initial culture was usual respiratory thai. DIAGNOSTIC IMPRESSION AND PLAN: Patient with pneumonia, extensive, on the right lower lobe, likely community-acquired pathogen. Patient did show overall improvement on Rocephin and Levaquin. Plan to finish therapy with p.o. Ceftin 500 mg twice a day for another 10 days with close outpatient followup. Continue supportive care.
--- NOTE | 2017-03-25 08:55 | DS ---
DATE OF ADMISSION: 03/18/2017 DATE OF DISCHARGE: 03/24/2017 A 51-year-old admitted with multilobar pneumonia predominantly on the right side and patient underwent bronchoscopy today and patient is feeling much better today and patient is being discharged today on Ceftin for 10 more days. Patient is on Ceftin levofloxacin and so far the cultures are negative. Patient will be referred to Dr. Doron Jackson. Patient will be followed by pulmonology as well. The patient was seen and examined on the day discharge. Vitals are stable. PHYSICAL EXAMINATION: GENERAL: The patient is alert and oriented x3, not in any acute distress. Well developed, well nourished. HEENT: Pupils are round and equally reacting to light. EOMI. No scleral icterus. No conjunctival pallor. Normocephalic, atraumatic. No pharyngeal erythema. No thyromegaly. CARDIOVASCULAR: S1 and S2 present. No murmurs, rubs, or gallops. PULMONARY: Chest is clear to auscultation, no wheezing or crackles. ABDOMEN: Soft, nontender, nondistended, normoactive bowel sounds. No palpable organomegaly. MUSCULOSKELETAL: No joint swelling or deformity. EXTREMITIES: No cyanosis, clubbing, or pedal edema. NEUROLOGICAL: Gross neurological examination did not reveal any focal deficits. SKIN: No rashes. FINAL DIAGNOSES: 1. Right-sided pneumonia mostly multilobar pneumonia. 2. Hypovolemic hyponatremia, resolved. 3. Morbid obesity. 4. Anxiety disorder, possible asthma with acute exacerbation. Please refer to my depart summary for details of discharge medications. Activity as tolerated. Low-calorie diet. I spent greater than 35 minutes in total discharge process.
--- NOTE | 2017-03-29 16:57 | P.PN ---
Progress Note - Text Addendum to discharge summary for Dr. Yanes Date of admission 03/18/2017 Date of discharge 03/24/2017 Final Diagnoses: 1. Acute sepsis secondary to right-sided pneumonia, mostly multilobar pneumonia , present on admission 2. Hypovolemic hyponatremia, resolved 3. acute change in mental status, acute metabolic encephalopathy secondary to sepsis, present on admission, improved 4. Morbid obesity, BMI 50.2 5. Anxiety disorder, possible bronchial asthma with acute mild intermittent exacerbation.
--- NOTE | 2017-03-29 20:40 | PN ---
FINAL DIAGNOSIS: Change in mental status, possibly metabolic encephalopathy.
== END 2017-03-24 15:11 | disposition home or self-care (01) | DRG 853 ==
LOC: EC 08:20 → 6SEL 16:31 → 5MS5E 03-23 12:36
PROVIDERS: ADMIT Hospitalist; ATTEND Hospitalist
PROC: 009U3ZX Drainage of Spinal Canal, Percutaneous Approach, Diagnostic (ICD-10-PCS; 2017-03-18)
PROC: 0BJ08ZZ Inspection of Tracheobronchial Tree, Via Natural or Artificial Opening Endoscopic (ICD-10-PCS; 2017-03-23)
PROC: 0B9F8ZX Drainage of Right Lower Lung Lobe, Via Natural or Artificial Opening Endoscopic, Diagnostic (ICD-10-PCS; principal; 2017-03-23 11:55)
DX: A41.9 Sepsis, unspecified organism (principal); J18.9 Pneumonia, unspecified organism; G93.41 Metabolic encephalopathy; E87.2 Acidosis; E87.1 Hypo-osmolality and hyponatremia; J45.901 Unspecified asthma with (acute) exacerbation; E86.1 Hypovolemia; Z68.43 Body mass index [BMI] 50.0-59.9, adult; R04.2 Hemoptysis; G47.33 Obstructive sleep apnea (adult) (pediatric); I51.7 Cardiomegaly; R51 Headache; R53.1 Weakness; R59.1 Generalized enlarged lymph nodes; M79.89 Other specified soft tissue disorders; R00.0 Tachycardia, unspecified; R40.2410 Glasgow coma scale score 13-15, unspecified time; E03.9 Hypothyroidism, unspecified; E66.01 Morbid (severe) obesity due to excess calories; F41.9 Anxiety disorder, unspecified; Z87.09 Personal history of other diseases of the respiratory system; Z79.51 Long term (current) use of inhaled steroids; Z79.899 Other long term (current) drug therapy; Z83.3 Family history of diabetes mellitus; Z82.49 Family history of ischemic heart disease and other diseases of the circulatory system; Z87.01 Personal history of pneumonia (recurrent); Z87.448 Personal history of other diseases of urinary system; Z91.012 Allergy to eggs; Z91.011 Allergy to milk products; Z79.1 Long term (current) use of non-steroidal anti-inflammatories (NSAID); Z82.3 Family history of stroke; Z71.3 Dietary counseling and surveillance; Z91.19 Patient's noncompliance with other medical treatment and regimen; Z90.710 Acquired absence of both cervix and uterus
CPT/HCPCS: 31624; 36415; 62270; 70450; 71010; 71020; 71260; 80048; 80053; 80202; 81003; 82945; 83605; 84132; 85025; 87040; 87070; 87086; 87102; 87116; 87205; 87206; 87252; 87496; 87498; 87502; 87529; 87798; 88108; 88305; 89050; 93306; 94640; 94760; 96361; 96365; 96366; 96367; 96375; 99291

== ENCOUNTER 2020-08-15 21:37 | Inpatient (IN) | payer BC, OTHER ==
--- NOTE | 2020-08-15 21:53 | ED ---
Fever HPI <Christian Ramirez - Last Filed: 08/16/20 00:12> - General Source: RN notes reviewed, old records reviewed Mode of arrival: EMS Limitations: no limitations - History of Present Illness MD Complaint: fever, weakness -: days(s) Temperature Source: subjective Context: sick contacts, multiple patients with similar symptoms Associated Symptoms: chills, sore throat, cough, night sweats Treatments Prior to Arrival: none <Myron Mcfarland - Last Filed: 08/16/20 17:17> - General Stated Complaint: cough,fever Time Seen by Provider: 08/15/20 21:50 - History of Present Illness Initial Comments: This is a 55-year-old female for evaluation of severe shortness of breath history of underlying asthma and COPD not on home O2 for evaluation of fever with known covert exposure. Patient having significant shortness breath here in the ER pulse ox was in the 80s on room air when EMS arrived at the house. No pain. Currently verbal 103 patient very short of breath upon movement and she is morbidly obese (Myron Mcfarland) - Related Data Home Medications Medication Instructions Recorded Confirmed Fluticasone Nasal [place] [Flonase 1 spray EA NOSTRIL DAILY 01/19/17 08/15/20 Nasal [place]] Fluticasone/Salmeterol [Advair 1 puff INHALATION RT-BID 01/19/17 08/15/20 500-50 [place]] Levothyroxine Sodium [Synthroid] 200 mcg PO DAILY 01/19/17 08/15/20 Zafirlukast 20 mg PO BID 01/19/17 08/15/20 Albuterol Inhaler [Ventolin Hfa 2 puff INHALATION RT-Q4H PRN 08/15/20 08/15/20 Inhaler] PARoxetine HCL [Paxil] 40 mg PO DAILY 08/15/20 08/15/20 metFORMIN HCL [Glucophage] 500 mg PO BID 08/15/20 08/15/20 predniSONE See Taper PO DIRECTED 08/15/20 08/15/20 Allergies Allergy/AdvReac Type Severity Reaction Status Date / Time egg AdvReac Unknown Verified 08/15/20 22:44 milk AdvReac Unknown Verified 08/15/20 22:44 Review of Systems ROS Other: All systems not noted in ROS Statement are negative. <Christian Ramirez - Last Filed: 08/16/20 00:12> ROS Other: All systems not noted in ROS Statement are negative. <Myron Mcfarland - Last Filed: 08/16/20 17:17> ROS Statement: Those systems with pertinent positive or pertinent negative responses have been documented in the HPI. Past Medical History Past Medical History: Asthma, Sleep Apnea/CPAP/BIPAP, Thyroid Disorder Additional Past Medical History / Comment(s): Morbid obesity, obstructive sleep apnea, bronchial asthma, hypothyroidism, recent hospitalization for a left lung pneumonia and January 2017. History of Any Multi-Drug Resistant Organisms: None Reported Past Surgical History: Bladder Surgery, Hysterectomy Past Anesthesia/Blood Transfusion Reactions: No Reported Reaction Past Psychological History: Anxiety Past Alcohol Use History: None Reported Past Drug Use History: None Reported - Past Family History Mother Family Medical History: CVA/TIA, Diabetes Mellitus, Myocardial Infarction ([place]) <Myron Mcfarland - Last Filed: 08/16/20 17:17> General Exam General appearance: alert, anxious, in distress, obese Head exam: Present: atraumatic, normocephalic, normal inspection Eye exam: Present: normal appearance, PERRL, EOMI. Absent: scleral icterus, conjunctival injection, periorbital swelling ENT exam: Present: normal exam, mucous membranes moist Neck exam: Present: normal inspection. Absent: tenderness, meningismus, lymphadenopathy Respiratory exam: Present: respiratory distress, wheezes, accessory muscle use, decreased breath sounds, prolonged expiratory. Absent: rhonchi, stridor Cardiovascular Exam: Present: normal rhythm, tachycardia, normal heart sounds. Absent: systolic murmur, diastolic murmur, rubs, gallop, clicks GI/Abdominal exam: Present: soft, normal bowel sounds. Absent: distended, tenderness, guarding, rebound, rigid Extremities exam: Present: normal inspection, full ROM, normal capillary refill. Absent: tenderness, pedal edema, joint swelling, calf tenderness Back exam: Present: normal inspection Neurological exam: Present: alert, oriented X3, CN II-XII intact Psychiatric exam: Present: normal affect, normal mood Skin exam: Present: warm, dry, intact, normal color. Absent: rash <Myron Mcfarland - Last Filed: 08/16/20 17:17> Course <Christian Ramirez Last Filed: 08/16/20 00:12> <Myron Mcfarland - Last Filed: 08/16/20 17:17> Vital Signs 08/15/20 08/15/20 08/15/20 21:39 22:45 23:48 Temperature 101.9 F H 101.9 F H Pulse Rate 143 H 132 H 128 H Respiratory 24 20 Rate Blood Pressure 114/70 121/54 O2 Sat by Pulse 97 98 Oximetry 08/16/20 08/16/20 08/16/20 00:00 00:05 00:24 Temperature 101.4 F H Pulse Rate 127 H 128 H 128 H Respiratory 20 Rate Blood Pressure 108/61 O2 Sat by Pulse 98 Oximetry 08/16/20 08/16/20 08/16/20 02:00 03:00 05:43 Temperature 97.9 F 98.7 F Pulse Rate 117 H 116 H Respiratory 20 24 24 Rate Blood Pressure 94/47 113/67 O2 Sat by Pulse 96 96 Oximetry 08/16/20 08/16/20 08/16/20 05:58 07:20 08:43 Temperature 98.7 F Pulse Rate 116 H 112 H 109 H Respiratory 22 20 20 Rate Blood Pressure 75/49 86/43 128/90 O2 Sat by Pulse 97 97 Oximetry - Reevaluation(s) Reevaluation #1: 08/15/20 22:05 Medical record is reviewed Patient had mild heart rate improvement with hydration, fever control Patient remained agitated with shortness of breath throughout my interaction Patient informed results of findings here in the ER (Myron Mcfarland) Reevaluation #2: 08/16/20 00:12 I was asked to enter replacement ordered for this patient, no other interaction. (Christian Ramirez) - Consultations Consultation #1: Spoke with ICU for admission there acceptable for admission (Myron Mcfarland) Medical Decision Making - Lab Data Result diagrams: 08/15/20 22:19 08/15/20 22:19 <Christian Ramirez - Last Filed: 08/16/20 00:12> - Lab Data Result diagrams: 08/16/20 14:20 08/16/20 14:20 - EKG Data -: EKG Interpreted by Me (EKG is sinus tach 136 ID 134 QRS 84 QTc 424) - Radiology Data Radiology results: report reviewed (Chest x-rays negative for acute disease), image reviewed <Myron Mcfarland - Last Filed: 08/16/20 17:17> - Medical Decision Making 55 female DF for evaluation of severe shortness of breath with hypoxia history of severe COPD and asthma, fever with likely covert and pneumonia. Patient will be admitted ICU secondary to severely elevated heart rate shortness of breath (Myron Mcfarland) - Lab Data Lab Results 08/15/20 08/15/20 08/15/20 Range/Units 22:19 22:19 22:19 WBC 12.5 H (3.8-10.6) k/uL RBC 3.17 L (3.80-5.40) m/uL Hgb 8.6 L (11.4-16.0) gm/dL Hct 27.0 L (34.0-46.0) % MCV 85.3 (80.0-100.0) fL MCH 27.0 (25.0-35.0) pg MCHC 31.7 (31.0-37.0) g/dL RDW 15.2 (11.5-15.5) % Plt Count 48 L (150-450) k/uL Neutrophils % (Manual) 80 % Band Neuts % (Manual) 2 % Lymphocytes % (Manual) 16 % Monocytes % (Manual) 2 % Neutrophils # (Manual) 10.20 H (1.3-7.7) k/uL Lymphocytes # (Manual) 2.00 (1.0-4.8) k/uL Monocytes # (Manual) 0.25 (0-1.0) k/uL Nucleated RBCs 0 (0-0) /100 WBC Manual Slide Review Performed Hypochromasia Slight Sodium 138 (137-145) mmol/L Potassium 3.7 (3.5-5.1) mmol/L Chloride 106 (98-107) mmol/L Carbon Dioxide 20 L (22-30) mmol/L Anion Gap 12 mmol/L BUN 15 (7-17) mg/dL Creatinine 0.67 (0.52-1.04) mg/dL Est GFR (CKD-EPI)AfAm >90 (>60 ml/min/1.73 sqM) Est GFR (CKD-EPI)NonAf >90 (>60 ml/min/1.73 sqM) Glucose 112 H (74-99) mg/dL Plasma Lactic Acid Mic 2.8 H* (0.7-2.0) mmol/L Calcium 9.5 (8.4-10.2) mg/dL Magnesium 1.7 (1.6-2.3) mg/dL Ferritin 10.5 (10.0-291.0) ng/mL Total Bilirubin 0.9 (0.2-1.3) mg/dL AST 44 H (14-36) U/L ALT 25 (4-34) U/L Alkaline Phosphatase 97 (38-126) U/L Lactate Dehydrogenase 513 (313-618) U/L C-Reactive Protein 19.7 H (<10.0) mg/L Total Protein 8.1 (6.3-8.2) g/dL Albumin 4.2 (3.5-5.0) g/dL Procalcitonin (0.02-0.09) ng/mL Coronavirus (PCR) (Not Detectd) 08/15/20 08/15/20 Range/Units 22:19 22:19 WBC (3.8-10.6) k/uL RBC (3.80-5.40) m/uL Hgb (11.4-16.0) gm/dL Hct (34.0-46.0) % MCV (80.0-100.0) fL MCH (25.0-35.0) pg MCHC (31.0-37.0) g/dL RDW (11.5-15.5) % Plt Count (150-450) k/uL Neutrophils % (Manual) % Band Neuts % (Manual) % Lymphocytes % (Manual) % Monocytes % (Manual) % Neutrophils # (Manual) (1.3-7.7) k/uL Lymphocytes # (Manual) (1.0-4.8) k/uL Monocytes # (Manual) (0-1.0) k/uL Nucleated RBCs (0-0) /100 WBC Manual Slide Review Hypochromasia Sodium (137-145) mmol/L Potassium (3.5-5.1) mmol/L Chloride (98-107) mmol/L Carbon Dioxide (22-30) mmol/L Anion Gap mmol/L BUN (7-17) mg/dL Creatinine (0.52-1.04) mg/dL Est GFR (CKD-EPI)AfAm (>60 ml/min/1.73 sqM) Est GFR (CKD-EPI)NonAf (>60 ml/min/1.73 sqM) Glucose (74-99) mg/dL Plasma Lactic Acid Mic (0.7-2.0) mmol/L Calcium (8.4-10.2) mg/dL Magnesium (1.6-2.3) mg/dL Ferritin (10.0-291.0) ng/mL Total Bilirubin (0.2-1.3) mg/dL AST (14-36) U/L ALT (4-34) U/L Alkaline Phosphatase (38-126) U/L Lactate Dehydrogenase (313-618) U/L C-Reactive Protein (<10.0) mg/L Total Protein (6.3-8.2) g/dL Albumin (3.5-5.0) g/dL Procalcitonin 0.26 H (0.02-0.09) ng/mL Coronavirus (PCR) Not Detected (Not Detectd) Critical Care Time Critical Care Time: Yes Total Critical Care Time: 31 <Myron Mcfarland - Last Filed: 08/16/20 17:17> Disposition <Christian Ramirez - Last Filed: 08/16/20 00:12> Is patient prescribed a controlled substance at d/c from ED?: No <Myron Mcfarland - Last Filed: 08/16/20 17:17> Clinical Impression: Fever, Morbid obesity, Viral infection, COVID-19, COPD with acute exacerbation, Hypoxia Disposition: ADMITTED IP TO THIS HOSP Condition: Critical
[2020-08-15] MEDS ORDERED: NALOXONE 0.4 MG/ML 1 ML VIAL IV PRN (22:05)
[2020-08-15] MEDS ORDERED: ACETAMINOPHEN TAB 500 MG TAB PO STA (22:06)
[2020-08-15] MEDS ORDERED: IBUPROFEN 800 MG TAB PO STA (22:06)
[2020-08-15 22:38] LABS: HGB 8.6 gm/dL (11.4-16.0); Hypochromasia Slight; MCHC 31.7 g/dL (31.0-37.0); MCV 85.3 fL (80.0-100.0); Mean Platelet Volume 8.7; RBC 3.17 m/uL (3.80-5.40); RDW 15.2 % (11.5-15.5); WBC 12.5 k/uL (3.8-10.6)
[2020-08-15 22:45] LABS: ALT 25 U/L (4-34); AST 44 U/L (14-36); African American GFR (CKD) >90 (>60 ml/min/1.73 sqM); Albumin 4.2 g/dL (3.5-5.0); Alkaline Phosphatase 97 U/L (38-126); Anion Gap 12 mmol/L; Blood Urea Nitrogen 15 mg/dL (7-17); C Reactive Protein 19.7 mg/L (<10.0); Calcium 9.5 mg/dL (8.4-10.2); Carbon Dioxide 20 mmol/L (22-30); Chloride 106 mmol/L (98-107); Glucose 112 mg/dL (74-99); LDH 513 U/L (313-618); Magnesium 1.7 mg/dL (1.6-2.3); Non-African American GFR(CKD) >90 (>60 ml/min/1.73 sqM); Potassium 3.7 mmol/L (3.5-5.1); Sodium 138 mmol/L (137-145); Total Bilirubin 0.9 mg/dL (0.2-1.3); Total Protein 8.1 g/dL (6.3-8.2)
[2020-08-15] MEDS: MORPHINE SULFATE 4 MG/ML SYRINGE IV PRN (22:52)
[2020-08-15] MEDS ORDERED: LORazepam 2 MG/ML INJ IV STA (23:05)
[2020-08-15] MEDS ORDERED: IPRATROPIUM 0.5 MG/2.5 ML NEBU INHALATION STA (23:06)
[2020-08-15] MEDS ORDERED: ALBUTEROL NEBULIZED 2.5 MG/3 ML INHALATION STA (23:06)
[2020-08-15] MEDS ORDERED: SODIUM CHLORIDE 0.9% 1,000 ML IV ONE (23:09)
--- NOTE | 2020-08-15 23:10 | XR ---
EXAMINATION TYPE: XR chest 1V portable DATE OF EXAM: 08/15/2020 COMPARISON: May 10, 2017 HISTORY: Pneumonia TECHNIQUE: Single view FINDINGS: There is increased density along the left cardiac border that could relate to some left low er lobe consolidation right lung is clear. There is no heart failure. There is no pleural effusion. T here are chest leads. IMPRESSION: Unusual increased density at the left side of the heart could relate to unusual pleural f luid or pulmonary infiltrate and is a change compared to old exam. No heart failure seen.
[2020-08-15 23:41] LABS: Band Neutrophils % 2 %; Monocytes # (M) 0.25 k/uL (0-1.0); Neutrophils % (M) 80 %; Nucleated Red Blood Cells 0 /100 WBC (0-0); Platelet Count 48 k/uL (150-450); Total Cells Counted 100
[2020-08-16 01:41] LABS: Partial Thromboplastin Time 22.5 sec (22.0-30.0); Prothrombin Time 10.3 sec (9.0-12.0)
[2020-08-16] MEDS ORDERED: SODIUM CHLORIDE 0.9% 1,000 ML IV ONE (02:05)
[2020-08-16 03:02] LABS: HCT 33.9 % (34.0-46.0); HGB 10.1 gm/dL (11.4-16.0); Hypochromasia Moderate; MCH 26.2 pg (25.0-35.0); MCHC 29.7 g/dL (31.0-37.0); MCV 88.2 fL (80.0-100.0); Mean Platelet Volume 7.7; RBC 3.84 m/uL (3.80-5.40); WBC 31.2 k/uL (3.8-10.6)
[2020-08-16 03:03] LABS: Platelet Count 334 k/uL (150-450)
[2020-08-16 03:16] LABS: ALT 22 U/L (4-34); AST 39 U/L (14-36); African American GFR (CKD) >90 (>60 ml/min/1.73 sqM); Albumin 3.4 g/dL (3.5-5.0); Alkaline Phosphatase 78 U/L (38-126); Anion Gap 9 mmol/L; Blood Urea Nitrogen 15 mg/dL (7-17); Calcium 8.1 mg/dL (8.4-10.2); Carbon Dioxide 23 mmol/L (22-30); Chloride 108 mmol/L (98-107); Glucose 133 mg/dL (74-99); Magnesium 1.5 mg/dL (1.6-2.3); Non-African American GFR(CKD) 83 (>60 ml/min/1.73 sqM); Phosphorus 3.4 mg/dL (2.5-4.5); Potassium 3.3 mmol/L (3.5-5.1); Sodium 140 mmol/L (137-145); Total Bilirubin 1.1 mg/dL (0.2-1.3); Total Protein 6.8 g/dL (6.3-8.2)
[2020-08-16 03:18] LABS: Band Neutrophils % 4 %; Lymphocytes # (M) 3.74 k/uL (1.0-4.8); Monocytes # (M) 1.56 k/uL (0-1.0); Neutrophils % (M) 79 %; Nucleated Red Blood Cells 0 /100 WBC (0-0); Total Cells Counted 100
--- NOTE | 2020-08-16 06:44 | XR ---
EXAM: XR Chest, 1 View CLINICAL HISTORY: dyspnea TECHNIQUE: Frontal view of the chest. COMPARISON: August 15, 2020 FINDINGS: Limitations: Limited by AP portable technique, large patient size and lordotic positioning. Lungs: There is still increased density in the left lung base which may represent infiltration or atelectasis. Pleural space: Unremarkable. No pneumothorax or pleural fluid. Heart: Unremarkable. No cardiomegaly. Mediastinum: Unremarkable. Bones/joints: No acute findings. IMPRESSION: Appearance suggesting infiltration or atelectasis in the left lung base.
[2020-08-16] MEDS ORDERED: AZITHROMYCIN 500 MG TAB PO SCH (09:00)
[2020-08-16 09:24] LABS: Glucose,Whole Blood 104 mg/dL (75-99)
[2020-08-16] MEDS ORDERED: IPRATROPIUM-ALBUTEROL 3 ML NEB INHALATION PRN (09:26)
[2020-08-16] MEDS ORDERED: NOREPINEPHRIN 4 MG-0.9% NS PMX 4 MG/250 ML ML IV ONE ×2 (10:57→12:56)
[2020-08-16] MEDS ORDERED: propofoL 100 ML IV ONE ×2 (10:57→13:17)
[2020-08-16] MEDS ORDERED: MIDAZOLAM 1 MG/ML 5 ML VIAL ONE (11:00)
[2020-08-16] MEDS ORDERED: SUCCINYLCHOLINE CHLORIDE VIAL 200 MG/10 ML VIAL IV ONE (11:00)
[2020-08-16] MEDS ORDERED: PROPOFOL 10 MG/ML 20 ML VIAL IV ONE (11:00)
[2020-08-16] MEDS ORDERED: PHENYLEPHRINE 10 MG/ML VIAL ONE (11:00)
[2020-08-16] MEDS ORDERED: ETOMIDATE 2 MG/ML 10 ML VIAL ONE (11:00)
--- NOTE | 2020-08-16 11:37 | XR ---
EXAMINATION TYPE: XR chest 1V portable DATE OF EXAM: 08/16/2020 HISTORY: Shortness of breath. COMPARISON: 08/16/2020 TECHNIQUE: Single view of the chest is submitted. FINDINGS: Interval placement of endotracheal tube which is appropriately position. NG tube is seen coursing int o the stomach. There is no evidence for pneumothorax. There is no evidence for focal infiltrate. There is evidence of cardiomegaly with pulmonary venous congestion. Increased density left lower lobe . Hilar and mediastinal structures are within normal limits. Degenerative changes are seen of the dorsal spine. IMPRESSION: 1. There is evidence of cardiomegaly with pulmonary venous congestion. Increased density left lower lobe. Indwelling tubes and catheters as noted.
[2020-08-16 11:48] LABS: Ferritin 10.5 ng/mL (10.0-291.0)
[2020-08-16] MEDS ORDERED: CISATRACURIUM 2 MG/ML 5 ML VIAL IV ONE (11:52)
[2020-08-16 12:29] LABS: ABG Base Excess -11.2 mmol/L; ABG HCO3 18 mmol/L (21-25); ABG Oxygen Saturation 99.3 % (94-97); ABG PCO2 55 mmHg (35-45); ABG PO2 167 mmHg (83-108); ABG TCO2 20 mmol/L (19-24); Allen Test Performed? Yes
[2020-08-16 12:32] LABS: ABG PH 7.12 (7.35-7.45)
--- NOTE | 2020-08-16 13:12 | P.CNPUL ---
History of Present Illness Consult date: 08/16/20 Requesting physician: Christopher Hardy Reason for consult: dyspnea, cough Chief complaint: Shortness of breath and cough. History of present illness: This is a 55-year-old female with history of multiple medical problems including morbid obesity, obstructive sleep apnea, bronchial asthma severity of which is not clear, history of left sided pneumonia back in 2016, history of depression, type 2 diabetes, hypothyroidism, and seasonal ALLERGIC rhinitis. Patient was brought into the ER yesterday with a few days' history of cough, shortness of breath, fever, and supposedly the patient had recent exposure to grandson with coronavirus infection. Patient was hypotensive, received fluid boluses in the ER, her lactic acid was noted to be elevated, patient was admitted to the ICU but she was in the ER overnight because of no bed availability in the ICU. This morning, the patient was brought up to the ICU, and I happened to be in the ICU upon arrival. Patient was clearly dyspneic, she was encephalopathic, hypotensive, and required immediate intubation and more fluid boluses were given, patient required placement on norepinephrine. Post intubation ABG showed a pO2 of 167 pCO2 of 55 pH of 7.12 and I was on 100% FiO2, assist control rate of 20 out of volume is 450 FiO2 50% and PEEP of 8. Repeat lactic acid while in the ICU is up to 4.8, and her lactic acid on admission was 2.8. Again more fluid boluses were given, patient was started on antibiotics in the form of Rocephin and Zithromax. Her BCR for coronavirus was negative. Chest x-ray showed extensive left lower lobe consolidation. Hence the presentation is mostly a presentation of left lower lobe pneumonia, sepsis, and septic shock. CBC showed leukocytosis with WBC count of 31.2. Normal platelets. And 4% bands. Relatively normal lymphocyte count. Review of Systems Patient is not a great historian, she was quite lethargic upon arrival to the ICU. Arousable, follows simple instructions, but tends to fall asleep easily. Past Medical History Past Medical History: Asthma, Sleep Apnea/CPAP/BIPAP, Thyroid Disorder Additional Past Medical History / Comment(s): Morbid obesity, obstructive sleep apnea, bronchial asthma, hypothyroidism, recent hospitalization for a left lung pneumonia and January 2017. History of Any Multi-Drug Resistant Organisms: None Reported Past Surgical History: Bladder Surgery, Hysterectomy Past Anesthesia/Blood Transfusion Reactions: No Reported Reaction Past Psychological History: Anxiety Past Alcohol Use History: None Reported Past Drug Use History: None Reported - Past Family History Mother Family Medical History: CVA/TIA, Diabetes Mellitus, Myocardial Infarction ([place]) Medications and Allergies Home Medications Medication Instructions Recorded Confirmed Type Fluticasone Nasal [place] [Flonase 1 spray EA NOSTRIL DAILY 01/19/17 08/15/20 History Nasal [place]] Fluticasone/Salmeterol [Advair 1 puff INHALATION RT-BID 01/19/17 08/15/20 History 500-50 Diskus] Levothyroxine Sodium [Synthroid] 200 mcg PO DAILY 01/19/17 08/15/20 History Zafirlukast 20 mg PO BID 01/19/17 08/15/20 History Albuterol Inhaler [Ventolin Hfa 2 puff INHALATION RT-Q4H PRN 08/15/20 08/15/20 History Inhaler] PARoxetine HCL [Paxil] 40 mg PO DAILY 08/15/20 08/15/20 History metFORMIN HCL [Glucophage] 500 mg PO BID 08/15/20 08/15/20 History predniSONE See Taper PO DIRECTED 08/15/20 08/15/20 History Allergies Allergy/AdvReac Type Severity Reaction Status Date / Time egg AdvReac Unknown Verified 08/15/20 22:44 milk AdvReac Unknown Verified 08/15/20 22:44 Physical Exam Vitals: Vital Signs Temp Pulse Resp BP Pulse Ox 08/16/20 11:20 101 H 21 84/49 08/16/20 11:10 130 H 23 165/104 80 L 08/16/20 11:00 96 18 74/33 94 L 08/16/20 10:50 96 22 74/33 69 L 08/16/20 10:40 115 H 21 93/68 96 08/16/20 10:30 102 H 25 H 80/36 96 08/16/20 10:20 108 H 32 H 80/36 92 L 08/16/20 10:10 106 H 173/154 95 08/16/20 10:00 102 H 40 H 83/33 91 L 08/16/20 09:50 98 35 H 83/33 92 L 08/16/20 09:40 101 H 23 77/44 95 08/16/20 09:30 97 24 85/49 93 L 08/16/20 09:21 93 L 08/16/20 08:43 98.7 F 109 H 20 128/90 97 08/16/20 07:20 112 H 20 86/43 08/16/20 05:58 116 H 22 75/49 97 08/16/20 05:43 24 08/16/20 03:00 98.7 F 116 H 24 113/67 96 08/16/20 02:00 97.9 F 117 H 20 94/47 96 08/16/20 00:24 128 H 08/16/20 00:05 128 H 08/16/20 00:00 101.4 F H 127 H 20 108/61 98 08/15/20 23:48 128 H 08/15/20 22:45 101.9 F H 132 H 20 121/54 98 08/15/20 21:39 101.9 F H 143 H 24 114/70 97 Intake and Output 08/15/20 08/16/20 08/16/20 22:59 06:59 14:59 Other: Weight 142.882 kg Physical Exam: Revealed a 55-year-old female morbidly obese, lethargic, slightly confused, in moderate respiratory distress. Head: Atraumatic normocephalic. EENT: PERRLA, EOMI, extremely dry mucous membranes noted. [Neck is supple.] [No neck masses.] [No thyromegaly.] [No JVD.] Chest: Crackles and rhonchi noted bilaterally especially on the left side. Symmetrical chest expansion. Cardiac Exam: Distant S1 and S2, no S3 gallop. No murmur. Abdomen: Morbidly obese, [Soft, nontender, no megaly, no rebound, no guarding, normal bowel sounds.] Extremities: [No clubbing, no edema, no cyanosis.] Diminished pulses bilaterally. Neurological Exam: Lethargic, arousable, follows simple instructions, otherwise negative. Psychiatric: Depressed mood, blunt affect, mental status as above. Skin: No rashes. Results - Laboratory Findings CBC and BMP: 08/16/20 02:40 08/16/20 02:40 ABG ABG pH 7.12 (7.35-7.45) L* 08/16/20 12:24 ABG pCO2 55 mmHg (35-45) H 08/16/20 12:24 ABG pO2 167 mmHg (83-108) H 08/16/20 12:24 ABG O2 Saturation 99.3 % (94-97) H 08/16/20 12:24 PT/INR, D-dimer PT 10.3 sec (9.0-12.0) 08/16/20 00:56 INR 1.0 (<1.2) 08/16/20 00:56 Abnormal lab findings: Abnormal Labs 08/15/20 08/15/20 08/15/20 22:19 22:19 22:19 WBC 12.5 H RBC 3.17 L Hgb 8.6 L Hct 27.0 L MCHC Plt Count 48 L Neutrophils # (Manual) 10.20 H Monocytes # (Manual) ABG pH ABG pCO2 ABG pO2 ABG HCO3 ABG O2 Saturation Potassium Chloride Carbon Dioxide 20 L Glucose 112 H POC Glucose (mg/dL) Plasma Lactic Acid Mic 2.8 H* Calcium Magnesium AST 44 H C-Reactive Protein 19.7 H Albumin Procalcitonin 08/15/20 08/16/20 08/16/20 22:19 00:56 02:40 WBC 31.2 H RBC Hgb 10.1 L Hct 33.9 L MCHC 29.7 L Plt Count Neutrophils # (Manual) 25.80 H Monocytes # (Manual) 1.56 H ABG pH ABG pCO2 ABG pO2 ABG HCO3 ABG O2 Saturation Potassium Chloride Carbon Dioxide Glucose POC Glucose (mg/dL) Plasma Lactic Acid Mic 2.3 H* Calcium Magnesium AST C-Reactive Protein Albumin Procalcitonin 0.26 H 08/16/20 08/16/20 08/16/20 02:40 03:57 08:29 WBC RBC Hgb Hct MCHC Plt Count Neutrophils # (Manual) Monocytes # (Manual) ABG pH ABG pCO2 ABG pO2 ABG HCO3 ABG O2 Saturation Potassium 3.3 L Chloride 108 H Carbon Dioxide Glucose 133 H POC Glucose (mg/dL) Plasma Lactic Acid Mic 3.1 H* 4.8 H* Calcium 8.1 L Magnesium 1.5 L AST 39 H C-Reactive Protein Albumin 3.4 L Procalcitonin 08/16/20 08/16/20 09:22 12:24 WBC RBC Hgb Hct MCHC Plt Count Neutrophils # (Manual) Monocytes # (Manual) ABG pH 7.12 L* ABG pCO2 55 H ABG pO2 167 H ABG HCO3 18 L ABG O2 Saturation 99.3 H Potassium Chloride Carbon Dioxide Glucose POC Glucose (mg/dL) 104 H Plasma Lactic Acid Mic Calcium Magnesium AST C-Reactive Protein Albumin Procalcitonin - Diagnostic Findings Chest x-ray: image reviewed (Chest x-ray showed cardiomegaly, pulmonary venous congestion, left lower lobe consolidation consistent with pneumonia) Assessment and Plan Assessment: Impression: Acute hypoxic and hypercapnic respiratory failure secondary to pneumonia Acute left lower lobe pneumonia, community-acquired. Doubt covid 19 pneumonitis. However is not entirely ruled out. Sepsis and septic shock secondary to left lower lobe pneumonia Lactic acidosis secondary to above. Acute exacerbation of moderate persistent bronchial asthma secondary to pneumonia. Obstructive sleep apnea syndrome. Patient had a sleep evaluation back in November of [address] Ray. Patient had an apnea/hypopnea index of 156.7. And CPAP was prescribed for this patient back in 2018. Obesity/hypoventilation syndrome. Type 2 diabetes. History of depression and generalized anxiety disorder. History of Covid 19 exposure. However the patient tested negative upon admission History of hypothyroidism. Recommendation: Patient was intubated as soon as she arrived to the ICU. Ventilator settings were adjusted and will be adjusted again based on the next ABG. Continue ventilatory support. Continue hemodynamic support, presently on norepinephrine being titrated accordingly, received at least 2 L of fluids in the ICU upon arrival. Lines including right femoral central line and right brachial arterial line were placed. Continue antibiotics, and adjust accordingly based on future cultures including blood cultures and sputum cultures. Continue IV fluids GI and DVT prophylaxis. Bronchodilators and IV Solu-Medrol. Address nutritional support in the next 24 hours. Prognosis is relatively guarded. Patient is extremely ill, We'll continue to follow. Time with Patient: Greater than 30
--- NOTE | 2020-08-16 13:13 | XR ---
EXAMINATION TYPE: XR chest 1V portable DATE OF EXAM: 08/16/2020 COMPARISON: 08/16/2020 HISTORY: SOB, Follow Up FINDINGS: Indwelling tubes and catheters are unchanged. No change in bibasilar opacities. Stable appearance of the cardio-mediastinal structures at this time. Pleural effusion unchanged. IMPRESSION: 1. Stable portable chest. Clinical correlation and follow up until resolution is recommended.
[2020-08-16 14:36] LABS: HCT 33.2 % (34.0-46.0); HGB 9.9 gm/dL (11.4-16.0); Hypochromasia Marked; MCHC 29.8 g/dL (31.0-37.0); MCV 87.5 fL (80.0-100.0); Mean Platelet Volume 7.9; Platelet Count 375 k/uL (150-450); RBC 3.79 m/uL (3.80-5.40); RDW 15.3 % (11.5-15.5); WBC 33.9 k/uL (3.8-10.6)
[2020-08-16 14:52] LABS: Calcium 7.5 mg/dL (8.4-10.2); Potassium 3.5 mmol/L (3.5-5.1); Total Bilirubin 1.5 mg/dL (0.2-1.3); Total Protein 6.2 g/dL (6.3-8.2)
[2020-08-16 14:54] LABS: ABG Base Excess -11.8 mmol/L; ABG HCO3 16 mmol/L (21-25); ABG PCO2 43 mmHg (35-45); ABG PO2 122 mmHg (83-108); ABG TCO2 18 mmol/L (19-24); Allen Test Performed? Yes
[2020-08-16 15:03] LABS: Band Neutrophils % 26 %; Large Platelets Present; Lymphocytes # (M) 1.02 k/uL (1.0-4.8); Metamyelocytes # (M) 2.03 k/uL (0); Metamyelocytes % 6 %; Monocytes # (M) 0.34 k/uL (0-1.0); Myelocytes # (M) 0.68 k/uL (0); Myelocytes % 2 %; Neutrophils % (M) 64 %; Nucleated Red Blood Cells 0 /100 WBC (0-0); Total Cells Counted 200
[2020-08-16 15:09] LABS: ABG PH 7.19 (7.35-7.45)
[2020-08-16] MEDS: IPRATROPIUM-ALBUTEROL 3 ML NEB INHALATION SCH ×2 (15:17→19:55)
--- NOTE | 2020-08-16 16:02 | HP ---
HISTORY AND PHYSICAL CHIEF COMPLAINT: Shortness of breath. HISTORY OF PRESENT ILLNESS: This is a 55-year-old woman with a past medical history multiple medical problems including asthma, sleep apnea, hypothyroidism, morbid obesity, history of bronchial asthma, history of bladder surgery, hysterectomy, being followed by Dr. Heredia. Now the patient is complaining of shortness of breath. The patient had shortness of breath for the past several days apparently. The patient was not on home O2. The patient came to the emergency room with significant shortness of breath. Pulse ox was in 80s and subsequently patient had developed acute respiratory failure. Patient mechanically intubated by Dr. Rueda. COVID-19 was suspected initially, but however the chest x-ray which was personally reviewed by me, showed some cardiomegaly, rotated picture. Covid-19 is pending at this time. The patient had elevated plasma lactic acid indicating sepsis and acute respiratory acidosis also. White count is also elevated. The rapid COVID 19 is negative. The patient was apparently intubated and shortly after self-extubated. Patient has to be reintubated. Patient monitored closely. Closely followed in the ICU at this time. Potassium 3.3. PAST MEDICAL HISTORY: History of asthma, sleep apnea, history of morbid obesity, obstructive sleep apnea, bronchial asthma, hypothyroidism. MEDICATIONS: Prior to admission include: 1. Prednisone taper. 2. Glucophage 500 mg p.o. b.i.d. 3. Cephalukast 20 mg p.o. b.i.d. 4. Paxil 40 mg p.o. daily. 5. Synthroid 200 mcg p.o. daily. 6. Advair 500/50 1 puff b.i.d. 7. Flonase. 8. Ventolin HFA 2 puffs q.4 p.r.n. ALLERGIES: EGG AND MILK. FAMILY HISTORY: History of CVA, diabetes mellitus, myocardial infarction in the family. SOCIAL HISTORY: No history of smoking. No history of alcohol intake. REVIEW OF SYSTEMS: Could not be taken because the patient is mechanically ventilated and sedated, intubated. PHYSICAL EXAMINATION: Pulse is 101, blood pressure 84/49, respirations 20. Temperature normal. Pulse ox 100% on mechanical ventilation. Vent settings are noted. The patient is currently on assist-control 450 tidal volume 100% FiO2 and 8 PEEP. HEENT: Conjunctivae normal. NECK: No JVD. CARDIOVASCULAR: S1, S2 muffled. RESPIRATION: Breath sounds diminished in the bases. Bilateral scattered rhonchi. ABDOMEN: Soft, obese, nontender. LEGS: No edema. NERVOUS SYSTEM: Patient is mechanically ventilated and sedated. SKIN: No ulcers, rashes or bleeding. JOINTS: No active deforming arthropathy. LYMPHATICS: No lymph nodes palpable in the neck, axillae or groin. LABS: At this time shows WBC 31.8, hemoglobin 10.1 ABGs noted. Sodium 140, potassium 3.3. ASSESSMENT: 1. Chronic obstructive pulmonary disease, bronchial asthma acute exacerbation with bilateral pneumonia, left more than the right with possible sepsis and acute hypoxic respiratory failure present on admission, on mechanical ventilation. 2. Rule out COVID-19 pneumonia. 3. Possible sepsis and septic shock secondary to above. 4. Increased WBC. 5. Anemia, normocytic. 6. Thrombocytopenia. 7. Acute respiratory acidosis. 8. Hypokalemia. 9. Hypomagnesemia. 10.Elevated procalcitonin. 11.Elevated plasma lactic acid possibly secondary to sepsis. 12.History of sleep apnea. 13.History of morbid obesity. 14.History of hypothyroidism. 15.History of bladder surgery. 16.History of anxiety. 17.Obesity with body mass index 50.8. 18.FULL CODE. RECOMMENDATIONS AND DISCUSSION: This 55-year-old woman who presented with multiple complex medical issues, we will monitor the patient closely. Continue the current medications. We will continue the broad-spectrum IV antibiotics. Obtain cultures. Monitor fluid/electrolyte balance closely. Levophed for pressor support. Otherwise, closely follow with Dr. Rueda. Obtain cultures. Infectious Disease also has been consulted. Covid-19 and rapid test is negative. Further recommendations to follow. DVT prophylaxis. The patient is on Lovenox at this time. Proton pump inhibitors also will be continued. Overall prognosis guarded. Further recommendations to follow. A copy of this dictation being forwarded to Dr. Alba who is the primary physician. MMMOSHEL / BRITTANYN: [id number] /
[2020-08-16] MEDS: methylPREDNISolone SOD SUCCI 125 MG/2 ML VIAL IV SCH ×3 (16:49→23:52)
[2020-08-16] MEDS: ENOXAPARIN 40 MG/0.4 ML SYRINGE SQ SCH (16:50)
[2020-08-16] MEDS: SODIUM CHLORIDE 0.9% 1,000 ML IV SCH ×2 (16:50→18:01)
[2020-08-16] MEDS: NOREPINEPHRINE 8 MG in SODIUM CHLORIDE 0.9% 250 ML IV SCH ×3 (16:52→22:15)
[2020-08-16] MEDS ORDERED: SODIUM BICARB 8.4% 50 ML SYR (1 MEQ/ML) ONE ×2 (16:59→17:00)
[2020-08-16] MEDS: LEVOTHYROXINE 100 MCG TAB PO SCH (19:13)
[2020-08-16] MEDS: FORMOTEROL FUMARATE 20 MCG/2 ML NEBU INHALATION SCH (19:55)
[2020-08-16] MEDS: BUDESONIDE 1 MG/2 ML NEBU INHALATION SCH (19:55)
[2020-08-16] MEDS ORDERED: INSULIN ASPART (NovoLOG) 100 UNIT/ML VIAL SQ SCH (20:00)
[2020-08-16] MEDS: MORPHINE SULFATE 4 MG/ML SYRINGE IV PRN ×2 (20:33→23:43)
[2020-08-16 20:54] LABS: ABG HCO3 16 mmol/L (21-25); ABG Oxygen Saturation 98.9 % (94-97); ABG PCO2 38 mmHg (35-45); ABG PH 7.24 (7.35-7.45); ABG PO2 119 mmHg (83-108); ABG TCO2 18 mmol/L (19-24); Allen Test Performed? Yes
[2020-08-16 20:55] LABS: Amorphous Sediment,Urine Rare /hpf; Appearance,Urine Turbid (Clear); Bacteria,Urine Rare /hpf; Bilirubin,Urine Negative (Negative); Blood,Urine Moderate (Negative); Color,Urine Yellow; Glucose,Urine (UA) Negative (Negative); Hyaline Casts,Urine 24 /lpf (0-2); Ketones,Urine Trace (Negative); Leukocyte Esterase,Urine Negative (Negative); Mucus,Urine Moderate /hpf; Nitrite,Urine Negative (Negative); PH, Urine 5.5 (5.0-8.0); Protein,Urine 2+ (Negative); RBC,Urine 8 /hpf (0-5); Specific Gravity,Urine 1.022 (1.001-1.035); Squamous Epithelial Cell,Urine 2 /hpf (0-4); Urobilinogen,Urine <2.0 mg/dL (<2.0); WBC,Urine 7 /hpf (0-5)
[2020-08-16] MEDS ORDERED: VANCOMYCIN IV PER PHARMACY 1 EACH MISC MISCELLANE PRN (21:00)
[2020-08-16] MEDS ORDERED: ACETAMINOPHEN IV (For NPO) 1,000 MG in EMPTY BAG 1 BAG IVPB ONE (21:33)
[2020-08-16] MEDS: DEXTROSE 5% IN WATER 1,000 ML with SODIUM BICARB (1 MEQ/ML) 150 ML IV SCH (21:56)
[2020-08-16] MEDS ORDERED: VANCOMYCIN 2,250 MG in SODIUM CHLORIDE 0.9% 500 ML 500 ML IVPB ONE (22:00)
--- NOTE | 2020-08-16 22:54 | P.CONS ---
History of Present Illness - Reason for Consult Consult date: 08/16/20 Sepsis and pneumonia Requesting physician: Christopher Hardy - Chief Complaint Shortness of breath and cough x few days - History of Present Illness Patient is a 55-year-old female with a past medical history significant for bronchial asthma obstructive sleep apnea and pneumonia the patient was brought into the ER yesterday for evaluation of increasing shortness of breath, cough and fever for the last few days currently the patient has been exposed to the grandson who was diagnosed with a covid 19, patient on arrival to the ER did have a fever of 101F the patient was hypotensive tachycardic and did have elevated white count as well as elevated lactic acid and pro-calcitonin of 0.26, chest x-ray did shows increased density left side of the heart with subsequent x-ray did shows evidence of left-sided pneumonia patient not getting intubated the patient self extubated herself and has to be intubated with an episode of vomiting during this time patient was initially treated with Rocephin and subsequently antibiotic has been switched over to vancomycin and Zosyn infectious disease was consulted for further management of antibiotic therapy patient at time of evaluation is intubated on the vent and is unable to void and history most information has been obtained from review the chart and talking to nursing staff patient is currently on pressor because of hypotension Review of Systems Positive point has been mentioned in the HPI rest of the systems are negative Past Medical History Past Medical History: Asthma, Sleep Apnea/CPAP/BIPAP, Thyroid Disorder Additional Past Medical History / Comment(s): Morbid obesity, obstructive sleep apnea, bronchial asthma, hypothyroidism, recent hospitalization for a left lung pneumonia and January 2017. History of Any Multi-Drug Resistant Organisms: None Reported Past Surgical History: Bladder Surgery, Hysterectomy Past Anesthesia/Blood Transfusion Reactions: No Reported Reaction Past Psychological History: Anxiety Past Alcohol Use History: None Reported Past Drug Use History: None Reported - Past Family History Mother Family Medical History: CVA/TIA, Diabetes Mellitus, Myocardial Infarction ([place]) Medications and Allergies Home Medications Medication Instructions Recorded Confirmed Type Fluticasone Nasal [place] [Flonase 1 spray EA NOSTRIL DAILY 01/19/17 08/15/20 History Nasal [place]] Fluticasone/Salmeterol [Advair 1 puff INHALATION RT-BID 01/19/17 08/15/20 History 500-50 [place]us] Levothyroxine Sodium [Synthroid] 200 mcg PO DAILY 01/19/17 08/15/20 History Zafirlukast 20 mg PO BID 01/19/17 08/15/20 History Albuterol Inhaler [Ventolin Hfa 2 puff INHALATION RT-Q4H PRN 08/15/20 08/15/20 History Inhaler] PARoxetine HCL [Paxil] 40 mg PO DAILY 08/15/20 08/15/20 History metFORMIN HCL [Glucophage] 500 mg PO BID 08/15/20 08/15/20 History predniSONE See Taper PO DIRECTED 08/15/20 08/15/20 History Allergies Allergy/AdvReac Type Severity Reaction Status Date / Time egg AdvReac Unknown Verified 08/15/20 22:44 milk AdvReac Unknown Verified 08/15/20 22:44 Physical Exam Vitals: Vital Signs Temp Pulse Resp BP Pulse Ox 08/16/20 20:24 112 H 08/16/20 20:10 112 H 08/16/20 19:55 112 H 08/16/20 15:30 90 08/16/20 15:17 86 08/16/20 15:00 90 29 H 98 08/16/20 14:00 94 98 08/16/20 13:00 99 98 08/16/20 12:00 98.4 F 103 H 21 112/55 97 08/16/20 11:20 101 H 21 84/49 08/16/20 11:10 130 H 23 165/104 80 L 08/16/20 11:00 96 18 74/33 94 L 08/16/20 10:50 96 22 74/33 69 L 08/16/20 10:40 115 H 21 93/68 96 08/16/20 10:30 102 H 25 H 80/36 96 08/16/20 10:20 108 H 32 H 80/36 92 L 08/16/20 10:10 106 H 173/154 95 08/16/20 10:00 102 H 40 H 83/33 91 L 08/16/20 09:50 98 35 H 83/33 92 L 08/16/20 09:40 101 H 23 77/44 95 08/16/20 09:30 97 24 85/49 93 L 08/16/20 09:21 93 L 08/16/20 08:43 98.7 F 109 H 20 128/90 97 11/08/20 07:20 112 H 20 86/43 08/16/20 05:58 116 H 22 75/49 97 08/16/20 05:43 24 08/16/20 03:00 98.7 F 116 H 24 113/67 96 08/16/20 02:00 97.9 F 117 H 20 94/47 96 08/16/20 00:24 128 H 08/16/20 00:05 128 H 08/16/20 00:00 101.4 F H 127 H 20 108/61 98 08/15/20 23:48 128 H 08/15/20 22:45 101.9 F H 132 H 20 121/54 98 Intake and Output 08/16/20 08/16/20 08/16/20 06:59 14:59 22:59 Intake Total 3500 669.467 Output Total 300 600 Balance 3200 69.467 Intake: IV 3500 625 0.9 3500 625 Intake, IV Titration 44.467 Amount Norepinephrine 8 mg In 44.467 Sodium Chloride 0.9% 250 ml @ 0.05 MCG/KG/MIN 13. 824 mls/hr IV .[id number] [facility] Rx#:[id number] Output: Urine 300 600 Other: Weight 142.882 kg ABP, PAP, CO, CI - Last 8 Hours Arterial Blood Pressure 85/48 Arterial Blood Pressure 89/53 GENERAL DESCRIPTION: Middle-aged female intubated on the vent. No tachypnea or accessory muscle of respiration use. HEENT: Shows Pallor , no scleral icterus. Oral mucous membrane is dry. Patient orally intubated NECK: Trachea central, no thyromegaly. LUNGS: Unlabored breathing. Decreased breath sound at the base. No wheeze or crackle. HEART: S1, S2, regular rate and rhythm. No loud murmur ABDOMEN: Soft, no tenderness , guarding or rigidity, no organomegaly EXTREMITIES: No edema of feet. SKIN: No rash, no masses palpable. NEUROLOGICAL: The patient is sedated on the vent. Results CBC & Chem 7: 08/16/20 14:20 08/16/20 14:20 Labs: Abnormal Lab Results - Last 24 Hours (Table) 08/15/20 08/15/20 08/15/20 Range/Units 22:19 22:19 22:19 WBC 12.5 H (3.8-10.6) k/uL RBC 3.17 L (3.80-5.40) m/uL Hgb 8.6 L (11.4-16.0) gm/dL Hct 27.0 L (34.0-46.0) % MCHC (31.0-37.0) g/dL Plt Count 48 L (150-450) k/uL Neutrophils # (Manual) 10.20 H (1.3-7.7) k/uL Monocytes # (Manual) (0-1.0) k/uL Metamyelocytes # (Man) (0) k/uL Myelocytes # (Manual) (0) k/uL D-Dimer (<0.60) mg/L FEU ABG pH (7.35-7.45) ABG pCO2 (35-45) mmHg ABG pO2 (83-108) mmHg ABG HCO3 (21-25) mmol/L ABG Total CO2 (19-24) mmol/L ABG O2 Saturation (94-97) % ABG Lactic Acid (0.5-1.6) mmol/L Potassium (3.5-5.1) mmol/L Chloride (98-107) mmol/L Carbon Dioxide 20 L (22-30) mmol/L BUN (7-17) mg/dL Creatinine (0.52-1.04) mg/dL Glucose 112 H (74-99) mg/dL POC Glucose (mg/dL) (75-99) mg/dL Plasma Lactic Acid Mic 2.8 H* (0.7-2.0) mmol/L Calcium (8.4-10.2) mg/dL Magnesium (1.6-2.3) mg/dL Total Bilirubin (0.2-1.3) mg/dL AST 44 H (14-36) U/L C-Reactive Protein 19.7 H (<10.0) mg/L Total Protein (6.3-8.2) g/dL Albumin (3.5-5.0) g/dL Procalcitonin (0.02-0.09) ng/mL Urine Appearance (Clear) Urine Protein (Negative) Urine Ketones (Negative) Urine Blood (Negative) Urine RBC (0-5) /hpf Urine WBC (0-5) /hpf Amorphous Sediment (None) /hpf Urine Bacteria (None) /hpf Hyaline Casts (0-2) /lpf Urine Mucus (None) /hpf 08/15/20 08/16/20 08/16/20 Range/Units 22:19 00:56 02:40 WBC 31.2 H (3.8-10.6) k/uL RBC (3.80-5.40) m/uL Hgb 10.1 L (11.4-16.0) gm/dL Hct 33.9 L (34.0-46.0) % MCHC 29.7 L (31.0-37.0) g/dL Plt Count (150-450) k/uL Neutrophils # (Manual) 25.80 H (1.3-7.7) k/uL Monocytes # (Manual) 1.56 H (0-1.0) k/uL Metamyelocytes # (Man) (0) k/uL Myelocytes # (Manual) (0) k/uL D-Dimer (<0.60) mg/L FEU ABG pH (7.35-7.45) ABG pCO2 (35-45) mmHg ABG pO2 (83-108) mmHg ABG HCO3 (21-25) mmol/L ABG Total CO2 (19-24) mmol/L ABG O2 Saturation (94-97) % ABG Lactic Acid (0.5-1.6) mmol/L Potassium (3.5-5.1) mmol/L Chloride (98-107) mmol/L Carbon Dioxide (22-30) mmol/L BUN (7-17) mg/dL Creatinine (0.52-1.04) mg/dL Glucose (74-99) mg/dL POC Glucose (mg/dL) (75-99) mg/dL Plasma Lactic Acid Mic 2.3 H* (0.7-2.0) mmol/L Calcium (8.4-10.2) mg/dL Magnesium (1.6-2.3) mg/dL Total Bilirubin (0.2-1.3) mg/dL AST (14-36) U/L C-Reactive Protein (<10.0) mg/L Total Protein (6.3-8.2) g/dL Albumin (3.5-5.0) g/dL Procalcitonin 0.26 H (0.02-0.09) ng/mL Urine Appearance (Clear) Urine Protein (Negative) Urine Ketones (Negative) Urine Blood (Negative) Urine RBC (0-5) /hpf Urine WBC (0-5) /hpf Amorphous Sediment (None) /hpf Urine Bacteria (None) /hpf Hyaline Casts (0-2) /lpf Urine Mucus (None) /hpf 08/16/20 08/16/20 08/16/20 Range/Units 02:40 03:57 08:29 WBC (3.8-10.6) k/uL RBC (3.80-5.40) m/uL Hgb (11.4-16.0) gm/dL Hct (34.0-46.0) % MCHC (31.0-37.0) g/dL Plt Count (150-450) k/uL Neutrophils # (Manual) (1.3-7.7) k/uL Monocytes # (Manual) (0-1.0) k/uL Metamyelocytes # (Man) (0) k/uL Myelocytes # (Manual) (0) k/uL D-Dimer (<0.60) mg/L FEU ABG pH (7.35-7.45) ABG pCO2 (35-45) mmHg ABG pO2 (83-108) mmHg ABG HCO3 (21-25) mmol/L ABG Total CO2 (19-24) mmol/L ABG O2 Saturation (94-97) % ABG Lactic Acid (0.5-1.6) mmol/L Potassium 3.3 L (3.5-5.1) mmol/L Chloride 108 H (98-107) mmol/L Carbon Dioxide (22-30) mmol/L BUN (7-17) mg/dL Creatinine (0.52-1.04) mg/dL Glucose 133 H (74-99) mg/dL POC Glucose (mg/dL) (75-99) mg/dL Plasma Lactic Acid Mic 3.1 H* 4.8 H* (0.7-2.0) mmol/L Calcium 8.1 L (8.4-10.2) mg/dL Magnesium 1.5 L (1.6-2.3) mg/dL Total Bilirubin (0.2-1.3) mg/dL AST 39 H (14-36) U/L C-Reactive Protein (<10.0) mg/L Total Protein (6.3-8.2) g/dL Albumin 3.4 L (3.5-5.0) g/dL Procalcitonin (0.02-0.09) ng/mL Urine Appearance (Clear) Urine Protein (Negative) Urine Ketones (Negative) Urine Blood (Negative) Urine RBC (0-5) /hpf Urine WBC (0-5) /hpf Amorphous Sediment (None) /hpf Urine Bacteria (None) /hpf Hyaline Casts (0-2) /lpf Urine Mucus (None) /hpf 08/16/20 08/16/20 08/16/20 Range/Units 09:22 12:24 14:20 WBC (3.8-10.6) k/uL RBC (3.80-5.40) m/uL Hgb (11.4-16.0) gm/dL Hct (34.0-46.0) % MCHC (31.0-37.0) g/dL Plt Count (150-450) k/uL Neutrophils # (Manual) (1.3-7.7) k/uL Monocytes # (Manual) (0-1.0) k/uL Metamyelocytes # (Man) (0) k/uL Myelocytes # (Manual) (0) k/uL D-Dimer (<0.60) mg/L FEU ABG pH 7.12 L* (7.35-7.45) ABG pCO2 55 H (35-45) mmHg ABG pO2 167 H (83-108) mmHg ABG HCO3 18 L (21-25) mmol/L ABG Total CO2 (19-24) mmol/L ABG O2 Saturation 99.3 H (94-97) % ABG Lactic Acid (0.5-1.6) mmol/L Potassium (3.5-5.1) mmol/L Chloride (98-107) mmol/L Carbon Dioxide (22-30) mmol/L BUN (7-17) mg/dL Creatinine (0.52-1.04) mg/dL Glucose (74-99) mg/dL POC Glucose (mg/dL) 104 H (75-99) mg/dL Plasma Lactic Acid Mic 4.4 H* (0.7-2.0) mmol/L Calcium (8.4-10.2) mg/dL Magnesium (1.6-2.3) mg/dL Total Bilirubin (0.2-1.3) mg/dL AST (14-36) U/L C-Reactive Protein (<10.0) mg/L Total Protein (6.3-8.2) g/dL Albumin (3.5-5.0) g/dL Procalcitonin (0.02-0.09) ng/mL Urine Appearance (Clear) Urine Protein (Negative) Urine Ketones (Negative) Urine Blood (Negative) Urine RBC (0-5) /hpf Urine WBC (0-5) /hpf Amorphous Sediment (None) /hpf Urine Bacteria (None) /hpf Hyaline Casts (0-2) /lpf Urine Mucus (None) /hpf 08/16/20 08/16/20 08/16/20 Range/Units 14:20 14:20 14:39 WBC 33.9 H (3.8-10.6) k/uL RBC 3.79 L (3.80-5.40) m/uL Hgb 9.9 L (11.4-16.0) gm/dL Hct 33.2 L (34.0-46.0) % MCHC 29.8 L (31.0-37.0) g/dL Plt Count (150-450) k/uL Neutrophils # (Manual) 30.50 H (1.3-7.7) k/uL Monocytes # (Manual) (0-1.0) k/uL Metamyelocytes # (Man) 2.03 H (0) k/uL Myelocytes # (Manual) 0.68 H (0) k/uL D-Dimer (<0.60) mg/L FEU ABG pH 7.19 L* (7.35-7.45) ABG pCO2 (35-45) mmHg ABG pO2 122 H (83-108) mmHg ABG HCO3 16 L (21-25) mmol/L ABG Total CO2 18 L (19-24) mmol/L ABG O2 Saturation 99.0 H (94-97) % ABG Lactic Acid (0.5-1.6) mmol/L Potassium (3.5-5.1) mmol/L Chloride 115 H (98-107) mmol/L Carbon Dioxide 15 L (22-30) mmol/L BUN 18 H (7-17) mg/dL Creatinine 1.65 H (0.52-1.04) mg/dL Glucose 148 H (74-99) mg/dL POC Glucose (mg/dL) (75-99) mg/dL Plasma Lactic Acid Mic (0.7-2.0) mmol/L Calcium 7.5 L (8.4-10.2) mg/dL Magnesium (1.6-2.3) mg/dL Total Bilirubin 1.5 H (0.2-1.3) mg/dL AST 52 H (14-36) U/L C-Reactive Protein (<10.0) mg/L Total Protein 6.2 L (6.3-8.2) g/dL Albumin 3.0 L (3.5-5.0) g/dL Procalcitonin (0.02-0.09) ng/mL Urine Appearance (Clear) Urine Protein (Negative) Urine Ketones (Negative) Urine Blood (Negative) Urine RBC (0-5) /hpf Urine WBC (0-5) /hpf Amorphous Sediment (None) /hpf Urine Bacteria (None) /hpf Hyaline Casts (0-2) /lpf Urine Mucus (None) /hpf 08/16/20 08/16/20 08/16/20 Range/Units 20:25 20:25 20:35 WBC (3.8-10.6) k/uL RBC (3.80-5.40) m/uL Hgb (11.4-16.0) gm/dL Hct (34.0-46.0) % MCHC (31.0-37.0) g/dL Plt Count (150-450) k/uL Neutrophils # (Manual) (1.3-7.7) k/uL Monocytes # (Manual) (0-1.0) k/uL Metamyelocytes # (Man) (0) k/uL Myelocytes # (Manual) (0) k/uL D-Dimer 1.14 H (<0.60) mg/L FEU ABG pH (7.35-7.45) ABG pCO2 (35-45) mmHg ABG pO2 (83-108) mmHg ABG HCO3 (21-25) mmol/L ABG Total CO2 (19-24) mmol/L ABG O2 Saturation (94-97) % ABG Lactic Acid 4.5 H* (0.5-1.6) mmol/L Potassium (3.5-5.1) mmol/L Chloride (98-107) mmol/L Carbon Dioxide (22-30) mmol/L BUN (7-17) mg/dL Creatinine (0.52-1.04) mg/dL Glucose (74-99) mg/dL POC Glucose (mg/dL) (75-99) mg/dL Plasma Lactic Acid Mic (0.7-2.0) mmol/L Calcium (8.4-10.2) mg/dL Magnesium (1.6-2.3) mg/dL Total Bilirubin (0.2-1.3) mg/dL AST (14-36) U/L C-Reactive Protein (<10.0) mg/L Total Protein (6.3-8.2) g/dL Albumin (3.5-5.0) g/dL Procalcitonin (0.02-0.09) ng/mL Urine Appearance Turbid H (Clear) Urine Protein 2+ H (Negative) Urine Ketones Trace H (Negative) Urine Blood Moderate H (Negative) Urine RBC 8 H (0-5) /hpf Urine WBC 7 H (0-5) /hpf Amorphous Sediment Rare H (None) /hpf Urine Bacteria Rare H (None) /hpf Hyaline Casts 24 H (0-2) /lpf Urine Mucus Moderate H (None) /hpf 08/16/20 Range/Units 20:50 WBC (3.8-10.6) k/uL RBC (3.80-5.40) m/uL Hgb (11.4-16.0) gm/dL Hct (34.0-46.0) % MCHC (31.0-37.0) g/dL Plt Count (150-450) k/uL Neutrophils # (Manual) (1.3-7.7) k/uL Monocytes # (Manual) (0-1.0) k/uL Metamyelocytes # (Man) (0) k/uL Myelocytes # (Manual) (0) k/uL D-Dimer (<0.60) mg/L FEU ABG pH 7.24 L (7.35-7.45) ABG pCO2 (35-45) mmHg ABG pO2 119 H (83-108) mmHg ABG HCO3 16 L (21-25) mmol/L ABG Total CO2 18 L (19-24) mmol/L ABG O2 Saturation 98.9 H (94-97) % ABG Lactic Acid (0.5-1.6) mmol/L Potassium (3.5-5.1) mmol/L Chloride (98-107) mmol/L Carbon Dioxide (22-30) mmol/L BUN (7-17) mg/dL Creatinine (0.52-1.04) mg/dL Glucose (74-99) mg/dL POC Glucose (mg/dL) (75-99) mg/dL Plasma Lactic Acid Mic (0.7-2.0) mmol/L Calcium (8.4-10.2) mg/dL Magnesium (1.6-2.3) mg/dL Total Bilirubin (0.2-1.3) mg/dL AST (14-36) U/L C-Reactive Protein (<10.0) mg/L Total Protein (6.3-8.2) g/dL Albumin (3.5-5.0) g/dL Procalcitonin (0.02-0.09) ng/mL Urine Appearance (Clear) Urine Protein (Negative) Urine Ketones (Negative) Urine Blood (Negative) Urine RBC (0-5) /hpf Urine WBC (0-5) /hpf Amorphous Sediment (None) /hpf Urine Bacteria (None) /hpf Hyaline Casts (0-2) /lpf Urine Mucus (None) /hpf Assessment and Plan Assessment: 1-patient admitted to the hospital with sepsis in this patient who did have a fever tachycardia hypotension elevated white count as well as elevated lactic acid source is likely pneumonia left-sided with concern for possible community acquired versus aspiration etiology (1) Sepsis Current Visit: Yes Status: Acute Code(s): A41.9 - SEPSIS, UNSPECIFIED ORGANISM SNOMED Code(s): 10697567 (2) Pneumonia Current Visit: Yes Status: Acute Code(s): J18.9 - PNEUMONIA, UNSPECIFIED ORGANISM SNOMED Code(s): 267703434 Plan: 1-Obtain sputum for Gram stain and culture 2-Vancomycin pharmacy to dose target trough of 15 while watching kidney function and Vanco trough closely 3-switched Zosyn to Unasyn to decrease risk of nephrotoxicity We will follow on clinical condition and cultures to further adjust medication if needed Thank you for this consultation will follow this patient with you Time with Patient: Greater than 30
[2020-08-16 23:41] LABS: Glucose,Whole Blood 124 mg/dL (75-99)
[2020-08-16] MEDS: AMPICILLIN-SULBACTAM 3 GM in SODIUM CHLORIDE 0.9% 100 ML IVPB SCH (23:43)
[2020-08-16] MEDS: INSULIN ASPART (NovoLOG) 100 UNIT/ML VIAL SQ SCH (23:51)
[2020-08-17] MEDS ORDERED: PIPERACILLIN-TAZOBACTAM 3.375 GM in SODIUM CHLORIDE 0.9% 100 ML IVPB SCH ×2
[2020-08-17] MEDS: NOREPINEPHRINE 8 MG in SODIUM CHLORIDE 0.9% 250 ML IV SCH ×3 (01:12→21:48)
[2020-08-17] MEDS: SODIUM CHLORIDE 0.9% 1,000 ML IV SCH ×3 (01:14→17:20)
[2020-08-17] MEDS: MORPHINE SULFATE 4 MG/ML SYRINGE IV PRN (01:25)
[2020-08-17] MEDS ORDERED: SODIUM CHLORIDE 0.9% 1,000 ML IV ONE ×2 (01:29→05:47)
[2020-08-17] MEDS: fentaNYL (PF) 1,000 MCG in SODIUM CHLORIDE 0.9% 80 ML IV SCH (02:21)
[2020-08-17] MEDS: CISATRACURIUM 200 MG in SODIUM CHLORIDE 0.9% 180 ML IV SCH (04:01)
[2020-08-17 04:57] LABS: Glucose,Whole Blood 130 mg/dL (75-99)
[2020-08-17 05:01] LABS: ABG Base Excess -12.9 mmol/L; ABG HCO3 16 mmol/L (21-25); ABG Oxygen Saturation 94.5 % (94-97); ABG PCO2 45 mmHg (35-45); ABG PO2 77 mmHg (83-108); ABG TCO2 17 mmol/L (19-24); Allen Test Performed? Yes
[2020-08-17 05:03] LABS: ABG PH 7.16 (7.35-7.45)
[2020-08-17 05:29] LABS: HCT 33.6 % (34.0-46.0); HGB 10.6 gm/dL (11.4-16.0); Hypochromasia Marked; MCHC 31.5 g/dL (31.0-37.0); MCV 88.7 fL (80.0-100.0); Mean Platelet Volume 7.8; Platelet Count 338 k/uL (150-450); RBC 3.79 m/uL (3.80-5.40); RDW 15.5 % (11.5-15.5); WBC 33.4 k/uL (3.8-10.6)
[2020-08-17 05:33] LABS: Calcium 7.2 mg/dL (8.4-10.2); Potassium 4.7 mmol/L (3.5-5.1); Total Bilirubin 1.2 mg/dL (0.2-1.3); Total Protein 6.3 g/dL (6.3-8.2)
[2020-08-17] MEDS ORDERED: SODIUM BICARB 8.4% 50 ML SYR (1 MEQ/ML) IV STA (05:48)
[2020-08-17] MEDS: AMPICILLIN-SULBACTAM 3 GM in SODIUM CHLORIDE 0.9% 100 ML IVPB SCH ×2 (05:53→13:11)
[2020-08-17] MEDS: SODIUM BICARB 8.4% 50 ML SYR (1 MEQ/ML) IV STA ×2 (05:53→05:54)
[2020-08-17 06:01] LABS: Band Neutrophils % 51 %; Lymphocytes # (M) 0.67 k/uL (1.0-4.8); Monocytes # (M) 1.67 k/uL (0-1.0); Neutrophils % (M) 42 %; Nucleated Red Blood Cells 0 /100 WBC (0-0); Total Cells Counted 100
[2020-08-17] MEDS: INSULIN ASPART (NovoLOG) 100 UNIT/ML VIAL SQ SCH ×3 (06:01→19:20)
[2020-08-17] MEDS: LEVOTHYROXINE 100 MCG TAB PO SCH (06:01)
[2020-08-17] MEDS: methylPREDNISolone SOD SUCCI 125 MG/2 ML VIAL IV SCH ×4 (06:16→23:54)
[2020-08-17] MEDS ORDERED: PANTOPRAZOLE 40 MG TABLET PO SCH (07:30)
--- NOTE | 2020-08-17 07:33 | PCN ---
PROCEDURE NOTE OPERATIVE REPORT: Placement of the right brachial arterial line. PREOPERATIVE DIAGNOSIS: Hypotension, sepsis, pneumonia, and the patient is required pressors. POSTOPERATIVE DIAGNOSIS: Hypotension, sepsis, pneumonia, and the patient is required pressors. ANESTHESIA USED: None deployed. PROCEDURE: The patient was placed in a supine position, the right brachial region was prepared in a sterile fashion and drapes were applied. The right brachial artery was palpated, cannulated, and a guidewire was placed. A Cook catheter was inserted over the guidewire, and the guidewire was removed. Good blood flow, good waveform noted. No evidence of any immediate complication. The line was secured using 3.0 silk sutures. MMODL / IJN: [id number] /
--- NOTE | 2020-08-17 07:33 | PCN ---
PROCEDURE NOTE OPERATIVE REPORT: Placement of a right femoral triple-lumen catheter. PREOPERATIVE DIAGNOSIS: Sepsis, pneumonia, hypotension, and the patient is requiring pressors. POSTOPERATIVE DIAGNOSIS: Sepsis, pneumonia, hypotension, and the patient is requiring pressors. ANESTHESIA USED: None deployed. PROCEDURE: The right groin was prepared in a sterile fashion and drapes were applied. The right femoral vein was cannulated easily, a guidewire was placed, the area around the guidewire was dilated, and a triple-lumen catheter was inserted over the guidewire, and the guidewire was removed. Good flow noted in the 3 different ports. Line was secured using 3.0 silk sutures. No evidence of any immediate complication. MMODL / IJN: [id number] /
[2020-08-17] MEDS: BUDESONIDE 1 MG/2 ML NEBU INHALATION SCH ×2 (07:45→21:30)
[2020-08-17] MEDS: IPRATROPIUM-ALBUTEROL 3 ML NEB INHALATION SCH ×4 (07:45→21:30)
[2020-08-17] MEDS: FORMOTEROL FUMARATE 20 MCG/2 ML NEBU INHALATION SCH ×2 (07:46→21:30)
--- NOTE | 2020-08-17 08:11 | XR ---
EXAMINATION TYPE: XR chest 1V portable DATE OF EXAM: 08/17/2020 COMPARISON: Prior chest x-ray 08/16/2020 HISTORY: Intubated TECHNIQUE: Single frontal view of the chest is obtained. FINDINGS: Endotracheal tube and NG tube are overlying appropriate positions. Patient is rotated. The re is no evident pneumothorax. Persistent retrocardiac density obscures the left hemidiaphragm. Bilat eral airspace disease is present, possible left pleural effusion. Heart is likely enlarged. IMPRESSION: Correlate for congestive heart failure, pulmonary edema, pneumonia, ARDS.
[2020-08-17 09:01] LABS: ABG Base Excess -10.9 mmol/L; ABG HCO3 18 mmol/L (21-25); ABG Oxygen Saturation 95.4 % (94-97); ABG PCO2 47 mmHg (35-45); ABG PO2 81 mmHg (83-108); ABG TCO2 19 mmol/L (19-24)
[2020-08-17 09:02] LABS: ABG PH 7.18 (7.35-7.45); Allen Test Performed? no
[2020-08-17] MEDS ORDERED: IV FLUID CONTINUATION 1,000 ML IV ONE (10:02)
[2020-08-17] MEDS: ENOXAPARIN 40 MG/0.4 ML SYRINGE SQ SCH (10:10)
[2020-08-17] MEDS: PARoxetine 20 MG TAB PO SCH (10:11)
[2020-08-17] MEDS: CHLORHEXIDINE GLUCONATE 15 ML CUP MUCOUS MEM SCH ×2 (10:11→22:18)
[2020-08-17] MEDS: PANTOPRAZOLE 40 MG/10 ML VIAL IVP SCH (10:11)
[2020-08-17 10:54] LABS: Ferritin 42.4 ng/mL (10.0-291.0)
--- NOTE | 2020-08-17 11:36 | PN ---
PROGRESS NOTE PULMONARY/CRITICAL CARE PROGRESS NOTE: DATE OF SERVICE: 08/17/2020 Critical care time 34 minutes. This is a 55-year-old female who was admitted on August 16. She came in with sepsis. The patient was intubated on August 16 for respiratory failure. She self-extubated herself and was reintubated also on 08/16. Currently, she remains on the ventilator. She is on volume assist-control mode rate of 28, tidal volume 450, FiO2 of 70%, PEEP of 8. Blood gases show a pO2 of 77, pCO2 of 45 and a pH of 7.16. The vent changes include an increase in the rate from 20-36 breaths per minute and a reduction in the tidal volume from 450 to 350. Repeat blood gases show pO2 of 80, pCO2 of 47 and a pH of 7.17. Her peak airway pressure is 33, and a plateau pressure is 25. Currently, she is on propofol at 60 mcg/kg per minute, norepinephrine at 34 mcg/minute, 3 amps of bicarb and D5W 100 mL an hour, Nimbex at 0.5 mcg/kg per minute, 0.9 at 125 mL an hour and fentanyl 25 mcg/kg/per hour. Antibiotics include Unasyn and vancomycin. She will undergo bronchoscopy today for pneumonia in the left base. Currently, she is sedated and paralyzed. Current vital signs are reviewed. Temperature is 99.6, heart rate is 114, respiratory rate 36, blood pressure 117/66 mean 83, saturations are 94% on 70% FiO2 and PEEP of 8. Currently sedated and paralyzed. HEENT: Examination is grossly unremarkable. There is an orally placed endotracheal tube noted. NECK: Supple, full range of motion. No adenopathy. Neck veins are flat. CARDIOVASCULAR: Examination reveals regular rhythm and rate. Heart rate 114 beats per minute. S1, S2 normal. Heart sounds are distant. LUNGS: Reveal diffuse coarse rhonchi. Breath sounds equal bilaterally. No crackles. ABDOMEN: Soft, but obese. Bowel sounds are not heard. EXTREMITIES: Intact. No cyanosis, clubbing, or edema. SKIN: Without rash. NEUROLOGIC: Examination could not be adequately assessed as the patient is sedated and paralyzed. LABS: Reviewed. White count 33.4, hemoglobin 10.6, hematocrit 33.6, platelet count 338,000. Lactic acid is 5.7. Sodium 142, potassium 4.7, chloride 112, CO2 14, anion gap is 16. BUN and creatinine were 26 and 2.32. Calcium 7.2, AST 48, ALT 25, albumin 3. Microbiology is currently pending or negative. CHEST X-RAY: Shows a left retrocardiac density obscuring the left hemidiaphragm. There is diffuse bibasilar infiltrates or atelectasis. There may be a small left-sided pleural effusion. There is cardiomegaly. CURRENT MEDICATIONS: Reviewed. In addition to what was already mentioned, the patient is on Unasyn, Pulmicort, chlorhexidine, Nimbex, Lovenox, fentanyl, formoterol, insulin, DuoNeb, levothyroxine, Solu-Medrol, morphine sulfate, Narcan, norepinephrine, Protonix, Paxil, propofol, sodium bicarbonate drip, and vancomycin. ASSESSMENT: 1. Acute hypoxemic and hypercapnic respiratory failure secondary to left lower lobe pneumonia with sepsis, with intubation on August 16, 2020. 2. Status post bronchoscopy on August 17, 2020. 3. Sepsis with septic shock secondary to left lower lobe pneumonia. 4. Lactic acidosis. 5. Anion gap metabolic acidosis. 6. Acute exacerbation of chronic bronchial asthma. 7. Sleep apnea syndrome. 8. Pickwickian syndrome. 9. Type 2 diabetes. 10.History of depression and anxiety. 11.Negative COVID testing. 12.Hypothyroidism. PLAN: No vent changes were made. The rate was brought up to 36 and THE tidal volume down to 350. The patient underwent bronchoscopy with BAL left lower lobe. The patient's medications are all reviewed. We will start tube feeds. She is on Unasyn and vancomycin. Repeat blood gases were done. Peak and plateau pressures were checked. Additional recommendations and suggestions are forthcoming. Prognosis is very guarded. Will continue to follow. The sampling of the left lower lobe will be done. Additional recommendations and suggestions are forthcoming. Critical care time 34 minutes. MMODL / IJN: [id number] /
[2020-08-17] MEDS ORDERED: VANCOMYCIN 2,250 MG in SODIUM CHLORIDE 0.9% 500 ML 500 ML IVPB ONE (16:00)
[2020-08-17 19:20] LABS: Glucose,Whole Blood 206 mg/dL (75-99)
--- NOTE | 2020-08-17 20:52 | PN ---
PROGRESS NOTE DATE OF SERVICE: 08/17/2020 This 55-year-old woman who was admitted with acute asthma, COPD exacerbation as well as pneumonia is being closely monitored. Patient had acute hypoxic respiratory failure. Patient had bronchoscopy and mucus plugging was noted. The patient had left lower pneumonia. The patient had hypotension and septic shock also. The sputum culture culled Strep pneumoniae from the sputum. Otherwise, lactic acid elevated 4.9. Past medical history reviewed. Review of systems could not be taken. CURRENT MEDICATIONS: Reviewed. They include DuoNeb, Unasyn, Pulmicort, Peridex, Lovenox, fentanyl, NovoLog, Synthroid, Paxil. PHYSICAL EXAMINATION: Patient is mechanically ventilated and sedated. Pulse is 118, regular. Blood pressure is 117/60, respiration 36, temperature 98.9, pulse ox 92% on 70% mechanical ventilation. HEENT: Conjunctivae normal. NECK: No jugular venous distention. CARDIOVASCULAR SYSTEM: S1, S2 muffled. RESPIRATORY SYSTEM: Breath sounds diminished at the bases. A few scattered rhonchi and crackles. ABDOMEN: Soft. NERVOUS SYSTEM: Patient is sedated. LABS: WBC 33.5, hemoglobin 10.6. ABGs noted. ASSESSMENT: 1. Chronic obstructive pulmonary disease, acute exacerbation, and asthma exacerbation with bilateral pneumonia, left more than the right, with possible sepsis with acute hypoxic respiratory failure, present on admission, on mechanical ventilation. 2. Streptococcus pneumoniae pneumonia. 3. Status post bronchoscopy and mucus plugs. 4. Possible severe sepsis and septic shock secondary to above. 5. Increased white count. 6. Anemia, normocytic. 7. Change in mental status, metabolic encephalopathy, multifactorial. 8. Thrombocytopenia. 9. Acute respiratory acidosis. 10.Hypokalemia. 11.Hypomagnesemia. 12.Elevated procalcitonin. 13.Elevated plasma lactic acid, possibly secondary to sepsis. 14.History of sleep apnea. 15.Morbid obesity. 16.Hypothyroidism. 17.History of bladder surgery. 18.History of anxiety. 19.Obesity with body mass index of 50.8. 20.FULL CODE. RECOMMENDATIONS AND DISCUSSION: I recommend to continue current medications, continue symptomatic treatment. Otherwise at this time I would recommend continuing the broad-spectrum IV antibiotics and infectious disease evaluation. Patient has significant WBC elevation, indicating leukemoid reaction. Guarded prognosis because of multiple complex medical issues. Further recommendations to follow. Closely follow with Infectious Disease. MMODL / IJN: [id number] / APARNA
[2020-08-17 20:54] LABS: Appearance,BF Bloody; Color,BF Red
[2020-08-17 20:55] LABS: Nucleated Cells, Body Fluid 7300 /uL; RBC, Body Fluid 57400 /uL
[2020-08-17 20:56] LABS: Mononuclear WBC,Body Fluid 8 %; Polynuclear WBC,Body Fluid 92 %; Total Cells Counted,Body Fluid 100
[2020-08-17] MEDS: DEXTROSE 5% IN WATER 1,000 ML with SODIUM BICARB (1 MEQ/ML) 150 ML IV SCH (23:30)
[2020-08-17 23:55] LABS: Glucose,Whole Blood 192 mg/dL (75-99)
[2020-08-18] MEDS: SODIUM CHLORIDE 0.9% 1,000 ML IV SCH ×3 (01:39→20:29)
[2020-08-18] MEDS: NOREPINEPHRINE 8 MG in SODIUM CHLORIDE 0.9% 250 ML IV SCH (01:39)
[2020-08-18] MEDS ORDERED: propofoL 100 ML IV ONE ×2 (01:43→03:40)
[2020-08-18] MEDS: AMPICILLIN-SULBACTAM 3 GM in SODIUM CHLORIDE 0.9% 100 ML IVPB SCH ×2 (02:31→16:37)
--- NOTE | 2020-08-18 02:50 | PCN ---
PROCEDURE NOTE PROCEDURE: Bronchoscopy, airway examination, therapeutic lavage, BAL left lower lobe. PREOPERATIVE DIAGNOSIS: Left lower lobe pneumonia. POSTOPERATIVE DIAGNOSIS: Left lower lobe pneumonia. There was informed consent and universal timeout. The patient's procedure was done in the patient's room. Endoscopy was at the bedside. OPERATORS: Dr. Gray and Diana Lenz. DESCRIPTION OF PROCEDURE: The procedure was a left lower lobe BAL. After the patient was adequately sedated and being fully monitored and currently paralyzed, the bronchoscope was inserted through the bronchoscope adapter on the endotracheal tube. The bronchoscope was taken down through the endotracheal tube. The end of the endotracheal tube was clearly above the tracheal rashid. Next, there was a thorough inspection of right upper lobe and its 3 segments, right middle lobe and its 2 segments, right lower lobe and its 5 segments, left upper lobe proper and its 2 segments, lingula and its 2 segments and left lower lobe and its 4 segments. There was diffuse airway erythema and hyperemia throughout. This is mostly noted in the left lung. There was mucosal friability. There was vascular engorgement. There were thick secretions noted throughout both sides, more so in the left lower lobe. The bronchoscope was wedged in the left lower lobe. BAL took place. Thirty mL of fluid was recovered. It will be sent to the laboratory for analysis. The other segments and lobes were all cleansed with saline lavage. Again, there were thick secretions noted throughout. There was no dominant mass or tumor. The patient tolerated the procedure well and the bronchoscope was withdrawn. MMODL / IJN: [id number] /
--- NOTE | 2020-08-18 03:01 | PN ---
PROGRESS NOTE DATE OF SERVICE: 08/17/2020 REASON FOR FOLLOWUP: Sepsis and pneumonia. INTERVAL HISTORY: The patient overall feels better and has improved. Last fever has been around midnight at 101.4. The patient is afebrile since then. Still requiring some pressor support. FiO2 is down to 70%. No significant purulent secretion through the ET or any diarrhea reported by the nursing staff. PHYSICAL EXAMINATION: Blood pressure 86/49, pulse of 115, temperature 98.8. She is 93% on 70% FiO2. General description is a middle-aged female intubated on the vent. RESPIRATORY SYSTEM: Unlabored breathing, decreased intensity of breath sounds. No wheeze. HEART: S1, S2. Regular rate and rhythm. ABDOMEN: Soft, no tenderness. EXTREMITIES: No edema of the feet. LABS: Hemoglobin is 10.6 with white count 33.4. BUN of 26, creatinine is 2.32. Sputum is showing a Streptococcus pneumoniae. DIAGNOSTIC IMPRESSION AND PLAN: Patient with acute respiratory failure which is multifactorial in this patient who did have evidence of Streptococcus pneumoniae pneumonia left lower lobe. Patient is covered with Unasyn and vancomycin. Kidney function to be monitored closely and if sensitive pathogen vancomycin will be discontinued. For now, continue current broad- spectrum antibiotics and monitor clinical course closely. MMODL / IJN: [id number] /
[2020-08-18 05:08] LABS: ABG Base Excess -3.5 mmol/L; ABG HCO3 24 mmol/L (21-25); ABG Oxygen Saturation 94.3 % (94-97); ABG PCO2 55 mmHg (35-45); ABG PH 7.25 (7.35-7.45); ABG PO2 73 mmHg (83-108); ABG TCO2 26 mmol/L (19-24); Allen Test Performed? Yes
[2020-08-18] MEDS: LEVOTHYROXINE 100 MCG TAB PO SCH (05:08)
[2020-08-18 05:44] LABS: Glucose,Whole Blood 193 mg/dL (75-99)
[2020-08-18 05:49] LABS: HCT 30.4 % (34.0-46.0); HGB 9.7 gm/dL (11.4-16.0); Hypochromasia Moderate; MCH 27.6 pg (25.0-35.0); MCHC 31.8 g/dL (31.0-37.0); MCV 86.8 fL (80.0-100.0); Mean Platelet Volume 7.3; Platelet Count 343 k/uL (150-450); RDW 15.5 % (11.5-15.5); WBC 30.5 k/uL (3.8-10.6)
[2020-08-18] MEDS: methylPREDNISolone SOD SUCCI 125 MG/2 ML VIAL IV SCH ×4 (05:49→23:49)
[2020-08-18] MEDS: INSULIN ASPART (NovoLOG) 100 UNIT/ML VIAL SQ SCH ×5 (05:49→23:48)
[2020-08-18 06:14] LABS: Albumin 2.7 g/dL (3.5-5.0); Potassium 4.4 mmol/L (3.5-5.1); Total Bilirubin 1.4 mg/dL (0.2-1.3); Total Protein 5.9 g/dL (6.3-8.2)
[2020-08-18 06:20] LABS: Vancomycin,Random 26.3 ug/mL
[2020-08-18 06:21] LABS: Band Neutrophils % 17 %; Lymphocytes # (M) 0.31 k/uL (1.0-4.8); Monocytes # (M) 2.14 k/uL (0-1.0); Neutrophils % (M) 75 %; Nucleated Red Blood Cells 0 /100 WBC (0-0); Total Cells Counted 200; Toxic Vacuolation Present
[2020-08-18 06:23] LABS: Calcium 6.3 mg/dL (8.4-10.2)
[2020-08-18] MEDS: fentaNYL (PF) 1,000 MCG in SODIUM CHLORIDE 0.9% 80 ML IV SCH (07:43)
[2020-08-18] MEDS: FORMOTEROL FUMARATE 20 MCG/2 ML NEBU INHALATION SCH ×2 (07:50→20:23)
[2020-08-18] MEDS: BUDESONIDE 1 MG/2 ML NEBU INHALATION SCH ×2 (07:50→20:23)
[2020-08-18] MEDS: IPRATROPIUM-ALBUTEROL 3 ML NEB INHALATION SCH ×5 (07:50→23:44)
--- NOTE | 2020-08-18 08:29 | XR ---
EXAMINATION TYPE: XR chest 1V portable DATE OF EXAM: 08/18/2020 COMPARISON: 08/17/2020 HISTORY: Tube placement TECHNIQUE: Single frontal view of the chest is obtained. FINDINGS: Bilateral consolidation and pleural effusion. ET and NG tube noted. Heart is enlarged. No sizable pneumothorax. Diffuse interstitial pattern. IMPRESSION: 1. Diffuse pleural-parenchymal changes are stable correlate for CHF versus diffuse pneumonia.
[2020-08-18] MEDS: ENOXAPARIN 30 MG/0.3 ML SYRINGE SQ SCH (09:47)
[2020-08-18] MEDS: CHLORHEXIDINE GLUCONATE 15 ML CUP MUCOUS MEM SCH ×2 (09:47→21:28)
[2020-08-18] MEDS: DEXTROSE 5% IN WATER 1,000 ML with SODIUM BICARB (1 MEQ/ML) 150 ML IV SCH ×2 (09:47→23:48)
[2020-08-18] MEDS: CISATRACURIUM 200 MG in SODIUM CHLORIDE 0.9% 180 ML IV SCH (09:47)
[2020-08-18] MEDS: PARoxetine 20 MG TAB PO SCH (09:48)
[2020-08-18] MEDS: PANTOPRAZOLE 40 MG/10 ML VIAL IVP SCH (09:48)
--- NOTE | 2020-08-18 14:54 | PN ---
PROGRESS NOTE PULMONARY/CRITICAL CARE PROGRESS NOTE: DATE OF SERVICE: 08/18/2020 Critical care time 34 minutes. This is a 55-year-old female admitted on August 16, 2020. She came with sepsis. She was intubated on August 16 for hypoxemic respiratory failure. She self-extubated herself and was reintubated on August 16. She remains on the ventilator. Currently, she is on the volume assist-control modality rate of 36, tidal volume 350, FiO2 70% to be dropped to 60% and PEEP of 12 to be increased to 16. PO2 of 73, pCO2 of 55 and a pH of 7.25. Her norepinephrine has been weaned off. She is on propofol at 60 mcg/kg per minute, saline at 125 mL an hour, 3 amps of bicarbonate and D5W at 100 mL an hour and fentanyl at 25 mcg/hour. The patient is also paralyzed on Nimbex at 0.5 mcg/kg per minute. Her COVID testing is negative. Sputum is showing evidence of Streptococcus pneumoniae from August 16. She is currently on Unasyn and vancomycin. Currently, her overall situation is about the same as it was yesterday. She did undergo bronchoscopy yesterday for pneumonia in the left lung. Current vital signs are reviewed, temperature is 99.1, heart rate 105, respiratory rate 36, blood pressure 112/65 mean 80 and saturations between 90% AND 94%. Appears in no acute distress. HEENT: Examination is grossly unremarkable. There is an orally placed endotracheal tube. There is an NG tube noted as well. NECK: Supple, full range of motion. No adenopathy. Neck veins are flat. CARDIOVASCULAR: Examination reveals regular rhythm and rate. Heart sounds are distant. Heart rate about 100 beats per minute. S1, S2 normal. LUNGS: Reveal diffuse coarse bilateral rhonchi. Breath sounds equal bilaterally. No wheezes or crackles. ABDOMEN: Soft, bowel sounds are noted. Obese. No masses. EXTREMITIES: Intact. No cyanosis, clubbing, or edema. SKIN: Without rash. NEUROLOGIC: Examination is difficult to assess. She is currently sedated and paralyzed. LABS: Reviewed. White count 30.5, hemoglobin 9.7, hematocrit 30.4, platelet count 343, Gases have been noted. Sodium 142, potassium 4.4, chloride 109, CO2 is 23, anion gap is 10, BUN and creatinine were 42 and 2.98. Calcium is 6.3, albumin is 2.7. Microbiology is showing evidence of strep pneumoniae in the sputum. Chest x-ray from 08/18 shows diffuse bilateral pleural parenchymal changes consistent with either pneumonia versus CHF. CURRENT MEDICATIONS: Reviewed. She is currently on Unasyn, Pulmicort, chlorhexidine, Nimbex, Lovenox, fentanyl, formoterol, insulin, DuoNeb, levothyroxine, Solu-Medrol, morphine, Narcan, norepinephrine which has been weaned off, Protonix, Paxil, propofol, sodium bicarbonate IV, and vancomycin. ASSESSMENT: 1. Acute hypoxemic and hypercapnic respiratory failure secondary to left lower lobe pneumonia with sepsis, with intubation on August 16, 2020. 2. Status post bronchoscopy on August 17, 2020. 3. Sepsis with septic shock secondary to left lower lobe pneumonia. 4. Lactic acidemia. 5. Anion gap metabolic acidosis. 6. Acute exacerbation of chronic bronchial asthma. 7. Sleep apnea syndrome. 8. Pickwickian syndrome. 9. Type 2 diabetes mellitus. 10.History of depression and anxiety. 11.History of COVID testing which was negative. 12.Hypothyroidism. PLAN: Currently, the patient's FiO2 was dropped from 70-60 percent, PEEP was increased from 12-16. Norepinephrine has been weaned off. She remains on propofol and paralysis. COVID testing was negative. Sputum is showing evidence of strep pneumoniae. She remains on vancomycin and Unasyn. Additional recommendations and suggestions are forthcoming. Prognosis is guarded. We will continue to follow. Critical care time 34 minutes. MMODL / IJN: [id number] /
[2020-08-18 15:24] LABS: Hemoglobin A1C 6.3 % (4.0-6.0)
[2020-08-18] MEDS: METOPROLOL TARTRATE 25 MG TAB PO SCH ×2 (16:37→23:11)
[2020-08-18 18:35] LABS: Basophils # (A) 0.1 k/uL (0-0.2); Basophils % (A) 0 %; Eosinophils % (A) 0 %; HCT 29.7 % (34.0-46.0); HGB 9.1 gm/dL (11.4-16.0); Hypochromasia Moderate; Lymphocytes % (A) 4 %; MCH 26.1 pg (25.0-35.0); MCHC 30.6 g/dL (31.0-37.0); MCV 85.1 fL (80.0-100.0); Mean Platelet Volume 7.7; Monocytes # (A) 0.8 k/uL (0-1.0); Monocytes % (A) 3 %; Neutrophils % (A) 92 %; Platelet Count 330 k/uL (150-450); RBC 3.49 m/uL (3.80-5.40); RDW 15.8 % (11.5-15.5)
[2020-08-18 18:37] LABS: Albumin 2.6 g/dL (3.5-5.0); Potassium 4.3 mmol/L (3.5-5.1); Total Bilirubin 1.3 mg/dL (0.2-1.3); Total Protein 5.7 g/dL (6.3-8.2)
[2020-08-18 18:38] LABS: INR 0.9 (<1.2); Partial Thromboplastin Time 24.8 sec (22.0-30.0); Prothrombin Time 9.9 sec (9.0-12.0)
[2020-08-18 18:41] LABS: Calcium 6.2 mg/dL (8.4-10.2)
--- NOTE | 2020-08-18 20:40 | PN ---
PROGRESS NOTE DATE OF SERVICE: 08/18/2020 This 55-year-old woman who was admitted with asthma, COPD, acute exacerbation, had possible left lower pneumonia also. The patient is mechanically intubated. Patient also had bronchoscopy yesterday. The patient also had some coffee-ground material coming from the NG tube. The chest x-ray showed bilateral infiltrates. Dr. Gray and Dr. Perea are following the patient closely. The patient is on broad-spectrum IV antibiotics. The patient also had episodes of recurrent paroxysmal atrial fibrillation. Past medical history reviewed. Review of systems could not be taken; the patient is mechanically intubated. CURRENT MEDICATIONS: Reviewed. They include DuoNeb, Unasyn, Pulmicort, cisatracurium, dextrose, Perforomist, NovoLog, Synthroid, Solu-Medrol, morphine, Paxil. PHYSICAL EXAMINATION: Patient is mechanically ventilated and sedated. Pulse is 173, regular. Blood pressure 119/87, respiration 10, temperature 98 degrees, pulse ox 89% on mechanical ventilation. HEENT: Conjunctivae normal. NECK: No jugular venous distention. CARDIOVASCULAR SYSTEM: S1, S2 muffled. RESPIRATORY SYSTEM: Breath sounds diminished at the bases. Bilateral scattered rhonchi and crackles. ABDOMEN: Soft, non-tender. LEGS: No edema. No swelling. NERVOUS SYSTEM: No focal deficit. LABS: WBC 30.5, hemoglobin 9.7. Otherwise, calcium is 6.3, total bilirubin is 1.4, albumin is 2.7. ASSESSMENT: 1. Chronic obstructive pulmonary disease, acute exacerbation, or asthma, acute exacerbation, with bilateral pneumonia with possible sepsis with acute hypoxic respiratory failure, present on admission, on mechanical ventilation. 2. Streptococcus pneumoniae. 3. Status post bronchoscopy and mucus plugs. 4. Acute renal failure, acute tubular necrosis. 5. Possible severe sepsis and septic shock secondary to above. 6. Increased white count. 7. Atrial fibrillation, paroxysmal, with a fast ventricular rate. 8. Anemia, normocytic. 9. Change in mental status with acute metabolic encephalopathy, multifactorial. 10.Thrombocytopenia. 11.Acute respiratory acidosis. 12.Hypokalemia. 13.Hypomagnesemia. 14.Elevated procalcitonin. 15.Elevated plasma lactic acid, possibly secondary to sepsis. 16.History of sleep apnea. 17.History of obesity. 18.Hypothyroidism. 19.History of bladder surgery. 20.History of anxiety. 21.Obesity with body mass index of 50.8. 22.FULL CODE. RECOMMENDATIONS AND DISCUSSION: I recommend to continue current medications, continue with the monitoring, symptomatic treatment. Continue with antibiotics. I would recommend Protonix 40 IV b.i.d. The patient has worsening renal failure. Would also recommend nephrology evaluation. COVID-19 is negative. The prognosis is guarded because of multiple complex medical issues. Further recommendations to follow. Avoid nephrotoxic medications. MMODL / IJN: [id number] /
[2020-08-18 20:55] LABS: Glucose,Whole Blood 212 mg/dL (75-99)
[2020-08-18 23:45] LABS: Glucose,Whole Blood 214 mg/dL (75-99)
[2020-08-19 00:44] LABS: Basophils % (A) 0 %; Eosinophils % (A) 0 %; HCT 28.4 % (34.0-46.0); Hypochromasia Slight; Lymphocytes % (A) 4 %; MCH 26.7 pg (25.0-35.0); MCHC 31.5 g/dL (31.0-37.0); MCV 84.8 fL (80.0-100.0); Mean Platelet Volume 7.7; Monocytes % (A) 4 %; Neutrophils # (A) 24.3 k/uL (1.3-7.7); Neutrophils % (A) 92 %; Platelet Count 342 k/uL (150-450); RBC 3.35 m/uL (3.80-5.40); RDW 15.7 % (11.5-15.5); WBC 26.4 k/uL (3.8-10.6)
--- NOTE | 2020-08-19 01:13 | PN ---
PROGRESS NOTE DATE OF SERVICE: 08/18/2020 REASON FOR FOLLOWUP: Streptococcus pneumoniae pneumonia. INTERVAL HISTORY: The patient is currently afebrile. The patient is hemodynamically stable, is off the pressor support today. FiO2 is down to 55%. Minimal through the ET, but no worsening. No diarrhea or any other changes reported by the nursing staff. PHYSICAL EXAMINATION: Blood pressure 112/65 with a pulse of 120, temperature 98.8. She is 90% on 55% FiO2. General description is a middle-aged female lying in bed in no distress. RESPIRATORY SYSTEM: Unlabored breathing, decreased breath sounds at bases. No wheeze. HEART: S1, S2. Regular rate and rhythm. ABDOMEN: Soft, no tenderness. LABS: Hemoglobin is 9.1, white count 27,000. BUN of 49, creatinine 3.52. DIAGNOSTIC IMPRESSION AND PLAN: Patient with Streptococcus pneumoniae pneumonia, likely aspiration etiology. Patient is covered with Unasyn. Vancomycin will be discontinued and monitor clinical course closely. MMODL / IJN: [id number] /
[2020-08-19] MEDS: AMPICILLIN-SULBACTAM 3 GM in SODIUM CHLORIDE 0.9% 100 ML IVPB SCH ×2 (02:07→23:52)
[2020-08-19] MEDS: SODIUM CHLORIDE 0.9% 1,000 ML IV SCH ×2 (02:08→09:11)
[2020-08-19] MEDS: IPRATROPIUM-ALBUTEROL 3 ML NEB INHALATION SCH ×6 (03:35→23:04)
--- NOTE | 2020-08-19 04:36 | XR ---
EXAM: XR Chest, 1 View CLINICAL HISTORY: Tube placement. TECHNIQUE: Frontal view of the chest. COMPARISON: August 17, 2020 FINDINGS: Lungs: Infiltrates have significantly improved on the right. The remaining infiltrate on the left. There is consolidation in the left lung base which may be atelectasis. Pleural space: Probable left pleural effusion. No evidence of pneumothorax. Heart: Unremarkable. No cardiomegaly. Mediastinum: Unremarkable. Bones/joints: No acute findings. Tubes, lines and devices: There is a stable endotracheal tube with the tip measuring 3.2 cm above the rashid. There is also stable gastric tube. It is in the stomach. IMPRESSION: Improved infiltration on the right.
[2020-08-19 05:38] LABS: ABG Base Excess -1.3 mmol/L; ABG HCO3 25 mmol/L (21-25); ABG Oxygen Saturation 91.5 % (94-97); ABG PCO2 50 mmHg (35-45); ABG PH 7.31 (7.35-7.45); ABG PO2 65 mmHg (83-108); ABG TCO2 27 mmol/L (19-24); Allen Test Performed? Yes
[2020-08-19 05:46] LABS: Glucose,Whole Blood 228 mg/dL (75-99)
[2020-08-19 05:53] LABS: Albumin 2.6 g/dL (3.5-5.0); Potassium 4.2 mmol/L (3.5-5.1); Total Bilirubin 1.3 mg/dL (0.2-1.3); Total Protein 5.9 g/dL (6.3-8.2)
[2020-08-19] MEDS: CISATRACURIUM 200 MG in SODIUM CHLORIDE 0.9% 180 ML IV SCH ×2 (05:56→21:10)
[2020-08-19] MEDS: INSULIN ASPART (NovoLOG) 100 UNIT/ML VIAL SQ SCH ×3 (05:57→18:06)
[2020-08-19 05:58] LABS: Vancomycin,Random 20.1 ug/mL
[2020-08-19] MEDS: methylPREDNISolone SOD SUCCI 125 MG/2 ML VIAL IV SCH (06:00)
[2020-08-19] MEDS: LEVOTHYROXINE 100 MCG TAB PO SCH (06:00)
[2020-08-19 06:02] LABS: Calcium 6.3 mg/dL (8.4-10.2)
[2020-08-19] MEDS ORDERED: LIDOCAINE 1% INJ 10MG/ML (20 ML MDV) ONE (06:32)
[2020-08-19 06:34] LABS: HCT 29.1 % (34.0-46.0); HGB 9.2 gm/dL (11.4-16.0); Hypochromasia Moderate; MCH 26.8 pg (25.0-35.0); MCHC 31.7 g/dL (31.0-37.0); MCV 84.7 fL (80.0-100.0); Mean Platelet Volume 7.8; Platelet Count 331 k/uL (150-450); RBC 3.44 m/uL (3.80-5.40); RDW 15.6 % (11.5-15.5); WBC 28.8 k/uL (3.8-10.6)
[2020-08-19] MEDS: BUDESONIDE 1 MG/2 ML NEBU INHALATION SCH ×2 (07:32→19:11)
[2020-08-19] MEDS: FORMOTEROL FUMARATE 20 MCG/2 ML NEBU INHALATION SCH ×2 (08:00→19:12)
[2020-08-19] MEDS: METOPROLOL TARTRATE 25 MG TAB PO SCH (08:07)
[2020-08-19] MEDS: PARoxetine 20 MG TAB PO SCH (08:12)
[2020-08-19] MEDS: PANTOPRAZOLE 40 MG/10 ML VIAL IVP SCH (08:13)
[2020-08-19] MEDS: CHLORHEXIDINE GLUCONATE 15 ML CUP MUCOUS MEM SCH ×2 (08:13→21:19)
[2020-08-19] MEDS: ENOXAPARIN 30 MG/0.3 ML SYRINGE SQ SCH (08:13)
[2020-08-19] MEDS ORDERED: FUROSEMIDE 10 MG/ML 10 ML VIAL IV STA (09:04)
[2020-08-19] MEDS ORDERED: HEPARIN SODIUM,PORCINE 5,000 UNIT/ML 1 ML VIAL IV ONE ×2 (09:51→18:00)
[2020-08-19] MEDS ORDERED: HEPARIN SODIUM,PORCINE 5,000 UNIT/ML 1 ML VIAL IV PRN ×2 (09:51→18:00)
--- NOTE | 2020-08-19 09:59 | ECHOF ---
Referral Reason:Paroxysmal Afib MEASUREMENTS -------- HEIGHT: 167.6 cm WEIGHT: 153.3 kg BP: 100/68 RVIDd: 4.1 cm (< 3.3) IVSd: 1.5 cm (0.6 - 1.1) LVIDd: 4.5 cm (3.9 - 5.3) LVPWd: 1.5 cm (0.6 - 1.1) IVSs: 1.8 cm LVIDs: 3.9 cm LVPWs: 1.9 cm LA Diam: 4.4 cm (2.7 - 3.8) LAESV Index (A-L): 25.32 ml/m Ao Diam: 3.2 cm (2.0 - 3.7) AV Cusp: 2.0 cm (1.5 - 2.6) MV EXCURSION: 13.838 mm (> 18.000) MV EF SLOPE: 149 mm/s (70 - 150) EPSS: 0.9 cm AV maxP.24 mmHg AV meanP.93 mmHg RAP: 15.00 mmHg RVSP: 66.08 mmHg FINDINGS -------- This was a technically difficult study with suboptimal views. The left ventricular size is normal. There is moderate concentric left ventricular hypertrophy. O verall left ventricular systolic function is moderate-severely impaired with, an EF between 30 - 35 % . The right ventricle is moderately enlarged. The left atrium is moderately dilated. 5.0mg of Lumason was utilized for enhancement of images There is mild aortic valve sclerosis. Peak/mean gradient across the Aortic Valve is 18.24mmHg / 8.9 3mmHg. Mild mitral annular calcification present. Mild tricuspid regurgitation present. There is severe pulmonary hypertension. The right ventricul ar systolic pressure, as measured by Doppler, is 66.08mmHg. The pulmonic valve was not well visualized. The aortic root size is normal. IVC Not well visulized. There is no pericardial effusion. CONCLUSIONS -------- 1. This was a technically difficult study with suboptimal views. 2. The left ventricular size is normal. 3. There is moderate concentric left ventricular hypertrophy. 4. Overall left ventricular systolic function is moderate-severely impaired with, an EF between 30 - 35 %. 5. The right ventricle is moderately enlarged. 6. The left atrium is moderately dilated. 7. 5.0mg of Lumason was utilized for enhancement of images 8. There is mild aortic valve sclerosis. 9. Peak/mean gradient across the Aortic Valve is 18.24mmHg / 8.93mmHg. 10. Mild mitral annular calcification present. 11. Mild tricuspid regurgitation present. 12. There is severe pulmonary hypertension. 13. The right ventricular systolic pressure, as measured by Doppler, is 66.08mmHg. 14. There is no pericardial effusion. BI SPECIALIST: DORON Smalls
[2020-08-19] MEDS ORDERED: HEPARIN SOD,PORK IN 0.45% NACL 25,000 UNIT in 0.45% NACL 1 250ML.BAG IV SCH (10:00)
[2020-08-19] MEDS: DEXTROSE 5% IN WATER 1,000 ML with SODIUM BICARB (1 MEQ/ML) 150 ML IV SCH (10:58)
[2020-08-19] MEDS: ASPIRIN 81 MG PO SCH (10:59)
[2020-08-19] MEDS ORDERED: DOBUTamine DRIP 500 MG in DEXTROSE/WATER 1 250ML.BAG IV SCH (11:00)
[2020-08-19 11:13] LABS: Band Neutrophils % 3 %; Lymphocytes # (M) 0.86 k/uL (1.0-4.8); Metamyelocytes # (M) 0.86 k/uL (0); Metamyelocytes % 3 %; Monocytes # (M) 1.44 k/uL (0-1.0); Myelocytes # (M) 0.86 k/uL (0); Myelocytes % 3 %; Neutrophils % (M) 85 %; Nucleated Red Blood Cells 0 /100 WBC (0-0); Rouleaux Present; Total Cells Counted 200
[2020-08-19 11:14] LABS: Poikilocytosis (M) Present; Toxic Granulation Present
[2020-08-19] MEDS ORDERED: CALCIUM GLUCONATE 1 GM in SODIUM CHLORIDE 0.9% 100 ML IVPB ONE (11:15)
--- NOTE | 2020-08-19 11:44 | PN ---
PROGRESS NOTE PULMONARY/CRITICAL CARE PROGRESS NOTE DATE OF SERVICE: August 19, 2020. Critical care time 34 minutes. This is a 55-year-old female admitted on August 16. She came in with sepsis. She was intubated on August 16 for hypoxemic respiratory failure. She self-extubated herself on the same day and was reintubated on the same day. She remains on mechanical ventilator. She is actually not made much or any progress whatsoever. Currently, she is on the volume assist-control mode rate 36, tidal volume 350, FiO2 55%, PEEP of 16, blood gases show pO2 of 65, a pCO2 of 49 and a pH 7.30. Currently, she is on propofol at 60 mcg/kg per minute, 3 amps of sodium bicarbonate and D5W at 150 mL an hour, fentanyl at 25 mcg an hour, Nimbex O.5 mcg/kg per minute increased to 2 mcg/kg per minute and 0.9 at 125 mL an hour to be turned to KVO. Tube feeds are on hold. The patient got 80 mg of Lasix IV push. Nephrology was consulted. Currently, the patient is on Unasyn and vancomycin for strep pneumoniae in the sputum. Apparently, nephrology did see the patient. The patient may be started on dobutamine. Also, the patient may need dialysis. PHYSICAL EXAMINATION: Current vital signs are reviewed, temperature is 98.4, heart rate 90, respiratory rate 36, blood pressure 102/65, saturations are between 89 and 90%. Appears in no acute distress. Currently sedated. HEENT: Examination is grossly unremarkable. There is an orally placed endotracheal tube and NG tube. Neck is supple full range of motion. No adenopathy. Neck veins are flat. CARDIOVASCULAR: Examination reveals regular rhythm rate. Heart rate about 99 beats per minute. It is regular. Heart sounds are distant. LUNGS: Reveal diffuse coarse bilateral rhonchi. No wheezes or crackles. Breath sounds equal. Abdomen is obese bowel sounds are heard. EXTREMITIES are intact. No cyanosis, clubbing, or no cyanosis or clubbing. There is diffuse edema. SKIN: Without rash. NEUROLOGIC: Examination could not be adequately assessed. CURRENT LABORATORY DATA: Includes a white count of 28.8, hemoglobin 9.2, hematocrit 29.1, platelet count 331,000. Blood gases show a pO2 of 65, pCO2 of 49 and pH 7.31. Sodium 141, potassium 4.2, chloride 105, CO2 24, anion gap is 12. BUN and creatinine were 54 and 4.16. Calcium 6.3, bilirubin 1.3, AST 80. Troponin 0.063. TSH 0.636. Microbiology showing strep pneumoniae in the sputum. The most recent chest x-ray dated August 19 shows slight improvement in the patient's abnormal infiltrate. MEDICATIONS: Current medications are reviewed. The patient is on Unasyn, aspirin, Lipitor, Pulmicort, chlorhexidine, Nimbex, dobutamine, fentanyl, formoterol, Lasix, subcu heparin, insulin, DuoNeb, levothyroxine, Solu-Medrol, morphine sulfate, Narcan, norepinephrine, Protonix, Paxil, propofol and saline. ASSESSMENT: 1. Acute hypoxemic hypercapnic respiratory failure secondary to left lower lobe pneumonia with sepsis, status post intubation on August 16, 2020. 2. Status post bronchoscopy, August 17, 2020. 3. Sepsis with septic shock secondary to left lower lobe pneumonia. 4. Lactic acidemia. 5. Anion gap metabolic acidosis. 6. Acute kidney injury. 7. Acute exacerbation of chronic bronchial asthma. 8. Sleep apnea syndrome. 9. Pickwickian syndrome. 10.Type 2 diabetes mellitus. 11.History of depression and anxiety. 12.History of Covid testing which was negative. 13.Hypothyroidism. PLAN: The patient apparently will be started on dobutamine as per Cardiology. Dobutamine is a vasodilator may cause a drop in blood pressure. The patient received 80 mg IV push Lasix. There was minimal response. The IV of 0.9 is turned down to KVO. Tube feeds are on hold. We will continue to follow. Additional recommendations and suggestions are forthcoming. She remains on Unasyn and vancomycin. The vancomycin can be discontinued. Additional recommendations and suggestions forthcoming. Critical care time 34 minutes. MMODL / IJN: [id number] /
[2020-08-19] MEDS ORDERED: DEXTROSE 5% IN WATER 100 ML with AMIODARONE 150 MG IV ONE (12:40)
[2020-08-19] MEDS: fentaNYL (PF) 1,000 MCG in SODIUM CHLORIDE 0.9% 80 ML IV SCH ×2 (12:55→19:07)
[2020-08-19] MEDS ORDERED: AMIODARONE 360 MG in DEXTROSE 5% IN WATER 200 ML IV ONE ×2 (13:00)
--- NOTE | 2020-08-19 13:26 | CONS ---
CONSULTATION REASON FOR CONSULT: Renal failure. HISTORY OF PRESENT ILLNESS: Patient is a 55-year-old female who was initially admitted to the hospital on 08/15/2020 with complaints of shortness of breath. She eventually developed worsening respiratory failure and was intubated. Patient was COVID negative although her family members did have COVID infection. She was found to have pneumonia and is maintained on antibiotics. Patient has had a hard time oxygenating. She is maintained on 16 of PEEP. Her O2 saturations are low. She did have a bronchoscopy done and now the aeration of the right lung is improved. Patient was quite hypotensive initially and was maintained on Levophed. Her Levophed just came off early this morning. Her blood pressure has been about 85 to 90 mmHg. Urine output started dropping yesterday to about 50 an hour and then 20 and for the last couple of hours, it has been about 10 mL an hour. Patient did receive Lasix 80 mg IV with no significant response. Echocardiogram done yesterday showed ejection fraction 30%-35%. Patient is not maintained on any nonsteroidal anti-inflammatory agents. The potassium is within range at 4.2 mEq/L. Serum creatinine was 0.8 on initial admission. It increased to 2.9, then 3.5 and today it is at 4.16 mg/dL. PAST MEDICAL HISTORY: Significant for hypertension, asthma, obstructive sleep apnea, hypothyroidism, obesity, previous pneumonia in 2017. PAST SURGICAL HISTORY: Hysterectomy, bladder surgery, details not known. SOCIAL HISTORY: Negative for smoking, drug abuse or alcohol abuse. MEDICATIONS: Prior to admission included Synthroid, metformin, Paxil, prednisone, inhalers, cephalo cast and Advair Diskus. ALLERGIES: Include EGG and MILK. REVIEW OF SYSTEMS: As per HPI. Other systems negative. PHYSICAL EXAMINATION: Patient is currently sedated and paralyzed. She is maintained on the vent. FiO2 is at 55%, O2 saturations 90% to 89%. Blood pressure is 102/65, heart rate 99 per minute, patient is afebrile. Examination of the heart S1, S2. Examination of the lungs, bilateral breath sounds are heard. Abdomen is obese. Examination of the lower extremities shows edema 2 to 3+ bilaterally upper and lower extremities. Her weight is up by about 20 kg since admission. LINE LEADER exam cannot be performed as patient is sedated and paralyzed. LABS: Show sodium 141, potassium 4.2, chloride 105, BUN 54, creatinine 4.16, calcium is 6.3, hemoglobin 9.2 g/dL. ASSESSMENT: 1. Acute kidney injury ATN secondary to hypotension and sepsis, currently oliguric. The patient also has underlying cardiomyopathy, ejection fraction 30% to 35%. She is volume overloaded as well. I will try dobutamine if the patient is able to tolerated and if her urine output and renal function does not improve, patient will need to be dialyzed given the significant volume overload as well. She did receive a dose of Lasix 80 mg IV push x1 and so far has not had much response. 2. Hypotension secondary to sepsis and cardiomyopathy. 3. Hypocalcemia, although corrected calcium was 7.4. Will check 25 hydroxy vitamin D level. 4. Hypoxic respiratory failure secondary to pneumonia, maintained on antibiotics. Sputum was positive for Streptococcus pneumonia and COVID-19 PCR was negative. 5. Anemia, no active bleeding noted at this time, rule out iron deficiency. PLAN: Start dobutamine. Check iron studies. Check 25 hydroxy vitamin D. Calcium gluconate x1 and then initiate renal replacement therapy if no response to above. Thank you for this consultation. Will continue to follow the patient with you during her hospitalization. MMODL / IJN: [id number] /
[2020-08-19 13:59] LABS: Glucose,Whole Blood 239 mg/dL (75-99)
--- NOTE | 2020-08-19 14:24 | P.CRDCN ---
History of Present Illness Consult date: 08/19/20 History of present illness: CHIEF COMPLAINT: A. fib with RVR HISTORY OF PRESENT ILLNESS: This is a 55-year old female with a past medical history significant for diabetes mellitus, asthma, hypothyroidism, and morbid obesity. 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 We have been asked to see the patient in consultation for A. fib with RVR. Patient is currently intubated in the intensive care unit. She is diagnosed with pneumonia and respiratory failure. Her covid testing was negative. Patient went into afib with RVR yesterday afternoon. She was maintaining sinus mechanism this morning. She was started on a dobutamine drip per nephrology today as patient had received IV Lasix with minimal response. Shortly after initiation of dobutamine drip, patient went into A. fib with RVR. Echocardiogram completed revealing ejection fraction 30-35%, mild tricuspid regurgitation, mild aortic valve sclerosis, and severe pulmonary hypertension. Previous echo in 2017 revealed EF 45-50% chest x-ray this morning reveals improving right-sided infiltrates. Probable left pleural effusion. Consolidation in the left lung base which may represent atelectasis. Patient was on vasopressor support which has been weaned off this morning. Blood pressure running in the low 90s. DIAGNOSTICS: EKG reveals A. fib with RVR Chest xray improving right-sided infiltrates. Probable left pleural effusion. Consolidation in the left lung base which may represent atelectasis Laboratory data: WBC 28.8. Hemoglobin 9.2. Platelet count 331. Sodium 141. Potassium 4.2. BUN 54. Creatinine 4.16. TSH 0.636. Troponin 0.053. 0.063. Current home cardiac medications include none REVIEW OF SYSTEMS: Unable to assess secondary to mechanical ventilation PHYSICAL EXAM: VITAL SIGNS: Reviewed. GENERAL: Well-developed in no acute distress. HEENT: Head is normocephalic. Pupils are equal, round. Sclerae anicteric. Mucous membranes of the mouth are moist. Neck supple. No JVD or thyromegaly LUNGS: Respirations even and unlabored. Lungs essentially clear to auscultation bilaterally. HEART: Regular rate and rhythm. S1 and S2 heard. ABDOMEN: Soft. Nondistended. Nontender. EXTREMITIES: Normal range of motion. No clubbing or cyanosis. Peripheral pulses intact. No lower extremity edema NEUROLOGIC: Awake and alert. Oriented x 3. ASSESSMENT: Acute hypoxic respiratory failure requiring mechanical ventilation secondary to pneumonia Sepsis, secondary to pneumonia Paroxysmal atrial fibrillation with RVR Cardiomyopathy, unknown if ischemic or nonischemic, EF 30-35% Abnormal troponins, possible NSTEMI, may be secondary to hypoxia, sepsis, and/or afib with RVR, however can not rule out underlying coronary artery disease Severe pulmonary hypertension Acute kidney injury Hypotension requiring vasopressor support History of asthma Hypothyroidism Morbid obesity BMI 57.5 PLAN: Continue ventilator management per Dr. Gray Nephrology consulted for CHAY. Possible dialysis today. Begin aspirin 81mg daily and atorvastatin 80 mg daily Begin amiodarone bolus and IV infusion. Will hold off on beta ada secondary to history of asthma per Dr. Fang. Continue telemetry monitoring Discontinue Lovenox. Begin IV heparin infusion Further recommendations pending patient's course Nurse practitioner note has been reviewed by physician. Signing provider agrees with the documented findings, assessment, and plan of care. Past Medical History Past Medical History: Asthma, Sleep Apnea/CPAP/BIPAP, Thyroid Disorder Additional Past Medical History / Comment(s): Morbid obesity, obstructive sleep apnea, bronchial asthma, hypothyroidism, recent hospitalization for a left lung pneumonia and January 2017. History of Any Multi-Drug Resistant Organisms: None Reported Past Surgical History: Bladder Surgery, Hysterectomy Past Anesthesia/Blood Transfusion Reactions: No Reported Reaction Past Psychological History: Anxiety Past Alcohol Use History: None Reported Past Drug Use History: None Reported - Past Family History Mother Family Medical History: CVA/TIA, Diabetes Mellitus, Myocardial Infarction ([place]) Medications and Allergies Home Medications Medication Instructions Recorded Confirmed Type Fluticasone Nasal [place] [Flonase 1 spray EA NOSTRIL DAILY 01/19/17 08/15/20 History Nasal [place]] Fluticasone/Salmeterol [Advair 1 puff INHALATION RT-BID 01/19/17 08/15/20 History 500-50 Diskus] Levothyroxine Sodium [Synthroid] 200 mcg PO DAILY 01/19/17 08/15/20 History Zafirlukast 20 mg PO BID 01/19/17 08/15/20 History Albuterol Inhaler [Ventolin Hfa 2 puff INHALATION RT-Q4H PRN 08/15/20 08/15/20 History Inhaler] PARoxetine HCL [Paxil] 40 mg PO DAILY 08/15/20 08/15/20 History metFORMIN HCL [Glucophage] 500 mg PO BID 08/15/20 08/15/20 History predniSONE See Taper PO DIRECTED 08/15/20 08/15/20 History Allergies Allergy/AdvReac Type Severity Reaction Status Date / Time egg AdvReac Unknown Verified 08/15/20 22:44 milk AdvReac Unknown Verified 08/15/20 22:44 Physical Exam Vitals: Vital Signs Temp Pulse Resp BP Pulse Ox 08/19/20 11:17 91 08/19/20 11:05 94 08/19/20 10:00 99 36 H 102/65 89 L 08/19/20 09:00 90 35 H 98/59 90 L 08/19/20 08:11 90 08/19/20 08:01 90 08/19/20 08:00 98.4 F 92 36 H 87/56 91 L 08/19/20 07:30 94 08/19/20 07:00 94 35 H 102/59 89 L 08/19/20 06:00 95 36 H 96/56 88 L 08/19/20 05:00 95 35 H 92/56 89 L 08/19/20 04:00 98.6 F 92 36 H 105/67 89 L 08/19/20 03:44 92 08/19/20 03:35 92 08/19/20 03:00 95 36 H 106/70 89 L 08/19/20 02:00 93 35 H 105/71 91 L 08/19/20 01:00 94 36 H 99/64 91 L 08/19/20 00:00 99.1 F 89 36 H 101/68 95 08/18/20 23:55 88 08/18/20 23:44 90 08/18/20 23:00 92 36 H 101/68 92 L 08/18/20 22:00 92 36 H 91 L 08/18/20 21:00 87 36 H 93 L 08/18/20 20:48 85 08/18/20 20:36 88 08/18/20 20:35 88 08/18/20 20:23 87 08/18/20 20:00 99.1 F 90 36 H 112/65 93 L 08/18/20 19:00 98 36 H 112/65 92 L 08/18/20 18:00 104 H 36 H 112/65 92 L 08/18/20 17:00 106 H 6 L 112/65 92 L 08/18/20 16:20 112 H 08/18/20 16:09 118 H 08/18/20 16:00 99.0 F 176 H 10 L 89 L 08/18/20 15:00 110 H 36 H 112/65 90 L 08/18/20 14:00 120 H 29 H 112/65 90 L Intake and Output 08/18/20 08/19/20 08/19/20 22:59 06:59 14:59 Intake Total 1306 2456.910 1176 Output Total 440 265 97 Balance 866 2191.910 1079 Intake: IV 1206 1924 803 0.9 1000 1000 400 Ampicillin-Sulbactam 3 gm 100 In Sodium Chloride 0.9% 100 ml @ 200 mls/hr IVPB Q12H [facility] Rx#:[id number] Dextrose 5% in Water 1, 200 800 400 000 ml @ 100 mls/hr IV . [id number] [facility] with Sodium Bicarb (1 Meq/ml) 150 ml Rx#:[id number] Pressure Bag 6 24 3 Intake, IV Titration 100 484.910 373 Amount Ampicillin-Sulbactam 3 gm 100 In Sodium Chloride 0.9% 100 ml @ 200 mls/hr IVPB Q24H [facility] Rx#:[id number] Cisatracurium 200 mg In 86.363 Sodium Chloride 0.9% 180 ml @ 2 MCG/KG/MIN 17.146 mls/hr IV .[id number] [facility] Rx #:[id number] fentaNYL (PF) 1,000 mcg 73 In Sodium Chloride 0.9% 80 ml @ As Directed IV . Q0M [facility] Rx#:[id number] propofoL 1,000 mg In 100 398.547 200 Empty Bag 1 bag @ Titrate IV .Q0M [facility] Rx#: [id number] Tube Feeding 48 Output: Urine 440 265 97 Other: Voiding Method Indwelling Catheter Indwelling Catheter Indwelling Catheter Weight 161.7 kg ABP, PAP, CO, CI - Last 8 Hours Arterial Blood Pressure 112/76 Arterial Blood Pressure 93/65 Arterial Blood Pressure 86/60 Arterial Blood Pressure 98/68 Arterial Blood Pressure 93/64 Results 08/19/20 04:25 08/19/20 04:25 Cardiac Enzymes 08/18/20 08/18/2020 Range/Units 18:23 18:23 04:25 AST 87 H 80 H (14-36) U/L Troponin I 0.053 H* (0.000-0.034) ng/mL 08/19/20 Range/Units 04:25 AST (14-36) U/L Troponin I 0.063 H* (0.000-0.034) ng/mL Coagulation 08/18/20 Range/Units 18:23 PT 9.9 (9.0-12.0) sec APTT 24.8 (22.0-30.0) sec CBC 08/18/20 08/19/20 08/19/20 Range/Units 18:23 00:07 04:25 WBC 27.0 H 26.4 H 28.8 H (3.8-10.6) k/uL RBC 3.49 L 3.35 L 3.44 L (3.80-5.40) m/uL Hgb 9.1 L 9.0 L 9.2 L (11.4-16.0) gm/dL Hct 29.7 L 28.4 L 29.1 L (34.0-46.0) % Plt Count 330 342 331 (150-450) k/uL Comprehensive Metabolic Panel 08/18/20 08/19/20 Range/Units 18:23 04:25 Sodium 142 141 (137-145) mmol/L Potassium 4.3 4.2 (3.5-5.1) mmol/L Chloride 107 105 (98-107) mmol/L Carbon Dioxide 24 24 (22-30) mmol/L BUN 49 H 54 H (7-17) mg/dL Creatinine 3.52 H 4.16 H (0.52-1.04) mg/dL Glucose 207 H 218 H (74-99) mg/dL Calcium 6.2 L* 6.3 L* (8.4-10.2) mg/dL AST 87 H 80 H (14-36) U/L ALT 31 30 (4-34) U/L Alkaline Phosphatase 94 101 (38-126) U/L Total Protein 5.7 L 5.9 L (6.3-8.2) g/dL Albumin 2.6 L 2.6 L (3.5-5.0) g/dL Current Medications Generic Name Dose Route Start Last Admin Trade Name Freq PRN Reason Stop Dose Admin Albuterol/Ipratropium 3 ml 08/16/20 09:26 Ipratropium-Albuterol 3 Ml Neb INHALATION RT-Q2H PRN Shortness Of Breath Or Wheezing Albuterol/Ipratropium 3 ml 08/18/20 12:00 08/19/20 11:05 Ipratropium-Albuterol 3 Ml Neb INHALATION 3 ml RT-Q4H [facility] Administration Aspirin 81 mg 08/19/20 10:00 08/19/20 10:59 Aspirin 81 Mg PO Not Given DAILY [facility] Atorvastatin Calcium 80 mg 08/19/20 21:00 Atorvastatin 80 Mg Tab PO HS [facility] Budesonide 1 mg 08/16/20 20:00 08/19/20 07:32 Budesonide 1 Mg/2 Ml Nebu INHALATION 1 mg RT-BID [facility] Administration Chlorhexidine Gluconate 15 ml 08/17/20 09:00 08/19/20 08:13 Chlorhexidine Gluconate 15 Ml Cup MUCOUS MEM 15 ml BID [facility] Administration Formoterol Fumarate 20 mcg 08/16/20 20:00 08/19/20 08:00 Formoterol Fumarate 20 Mcg/2 Ml Nebu INHALATION 20 mcg RT-BID [facility] Administration Heparin Sodium (Porcine) 0 unit 08/19/20 18:00 Heparin Sodium,Porcine 5,000 Unit/Ml 1 Ml Vial IV PER PROTOCOL PRN Low PTT Protocol Heparin Sodium (Porcine) 4,000 unit 08/19/20 18:00 Heparin Sodium,Porcine 5,000 Unit/Ml 1 Ml Vial IV 08/19/20 18:01 ONCE ONE Sodium Chloride 1,000 mls @ 20 mls/hr 08/16/20 09:30 08/19/20 09:11 Saline 0.9% IV 20 mls/hr .Q24H [facility] Administration Norepinephrine Bitartrate 8 mg 258 mls @ 13.824 mls/hr 08/16/20 14:30 08/18/20 06:49 / Sodium Chloride IV 0 mcg/kg/min .[id number] [facility] 0 mls/hr Titration Protocol 0.05 MCG/KG/MIN Fentanyl Citrate 1,000 mcg/ 100 mls @ 0 mls/hr 08/17/20 02:00 08/19/20 12:55 Sodium Chloride IV 25 mcg/hr .Q0M [facility] 2.5 mls/hr Administration Protocol As Directed Cisatracurium Besylate 200 mg/ 200 mls @ 17.146 mls/hr 08/17/20 03:30 08/19/20 05:56 Sodium Chloride IV 0.5 mcg/kg/min .[id number] [facility] 4.286 mls/hr Administration Protocol 2 MCG/KG/MIN Propofol 1,000 mg/ IV Solution 100 mls @ 0 mls/hr 08/18/20 03:45 08/19/20 10:57 IV 60 mcg/kg/min .Q0M [facility] 58.212 mls/hr Administration Protocol Titrate Ampicillin Sodium/Sulbactam 100 mls @ 200 mls/hr 08/20/20 00:00 Sodium 3 gm/ Sodium Chloride IVPB Q24H [facility] Heparin Sodium/Sodium Chloride 250 mls @ 9.993 mls/hr 08/19/20 18:00 25,000 unit/ Sodium Chloride IV .Q24H [facility] Protocol 6.18 UNITS/KG/HR Amiodarone HCl 360 mg/ 200 mls @ 33.333 mls/hr 08/19/20 13:00 08/19/20 12:53 Dextrose/Water IV 08/19/20 18:59 1 mg/min .Q6H ONE 33.333 mls/hr Administration Protocol 1 MG/MIN Amiodarone HCl 300 mg/ 250 mls @ 25 mls/hr 08/19/20 19:00 Dextrose/Water IV 08/20/20 12:59 .Q10H [facility] Protocol 0.5 MG/MIN Insulin Aspart 0 unit 08/17/20 00:00 08/19/20 05:57 Insulin Aspart (Novolog) 100 Unit/Ml Vial SQ 7 unit Q6H [facility] Administration Protocol Levothyroxine Sodium 200 mcg 08/16/20 14:15 08/19/20 06:00 Levothyroxine 100 Mcg Tab PO Not Given DAILY@0630 [facility] Morphine Sulfate 4 mg 08/15/20 22:05 08/17/20 01:25 Morphine Sulfate 4 Mg/Ml Syringe IV 4 mg Q2HR PRN Administration Pain Scale 8 to 10 Naloxone HCl 0.2 mg 08/15/20 22:05 Naloxone 0.4 Mg/Ml 1 Ml Vial IV Q2M PRN Opioid Reversal Pantoprazole Sodium 40 mg 08/17/20 09:00 08/19/20 08:13 Pantoprazole 40 Mg/10 Ml Vial IVP 40 mg DAILY [facility] Administration Paroxetine HCl 40 mg 08/17/20 09:00 08/19/20 08:12 Paroxetine 20 Mg Tab PO Not Given DAILY [facility] Intake and Output 08/18/20 08/19/20 08/19/20 22:59 06:59 14:59 Intake Total 1306 2456.910 1176 Output Total 440 265 97 Balance 866 2191.910 1079 Intake: IV 1206 1924 803 0.9 1000 1000 400 Ampicillin-Sulbactam 3 gm 100 In Sodium Chloride 0.9% 100 ml @ 200 mls/hr IVPB Q12H [facility] Rx#:[id number] Dextrose 5% in Water 1, 200 800 400 000 ml @ 100 mls/hr IV . [id number] [facility] with Sodium Bicarb (1 Meq/ml) 150 ml Rx#:[id number] Pressure Bag 6 24 3 Intake, IV Titration 100 484.910 373 Amount Ampicillin-Sulbactam 3 gm 100 In Sodium Chloride 0.9% 100 ml @ 200 mls/hr IVPB Q24H [facility] Rx#:[id number] Cisatracurium 200 mg In 86.363 Sodium Chloride 0.9% 180 ml @ 2 MCG/KG/MIN 17.146 mls/hr IV .[id number] [facility] Rx #:[id number] fentaNYL (PF) 1,000 mcg 73 In Sodium Chloride 0.9% 80 ml @ As Directed IV . Q0M [facility] Rx#:[id number] propofoL 1,000 mg In 100 398.547 200 Empty Bag 1 bag @ Titrate IV .Q0M [facility] Rx#: [id number] Tube Feeding 48 Output: Urine 440 265 97 Other: Voiding Method Indwelling Catheter Indwelling Catheter Indwelling Catheter Weight 161.7 kg 08/19/20 04:25 08/19/20 04:25
[2020-08-19 16:43] LABS: ABG Base Excess -2.9 mmol/L; ABG HCO3 25 mmol/L (21-25); ABG Oxygen Saturation 58.6 % (94-97); ABG PCO2 57 mmHg (35-45); ABG PH 7.24 (7.35-7.45); ABG TCO2 26 mmol/L (19-24)
[2020-08-19 16:47] LABS: ABG PO2 36 mmHg (83-108); Allen Test Performed? no
[2020-08-19 17:11] LABS: Glucose,Whole Blood 216 mg/dL (75-99)
[2020-08-19 17:31] LABS: Basophils # (A) 0.3 k/uL (0-0.2); Basophils % (A) 1 %; Eosinophils % (A) 0 %; HCT 28.6 % (34.0-46.0); HGB 9.2 gm/dL (11.4-16.0); Hypochromasia Slight; Lymphocytes # (A) 1.1 k/uL (1.0-4.8); Lymphocytes % (A) 4 %; MCH 27.4 pg (25.0-35.0); MCHC 32.2 g/dL (31.0-37.0); MCV 84.9 fL (80.0-100.0); Mean Platelet Volume 7.7; Monocytes # (A) 1.3 k/uL (0-1.0); Monocytes % (A) 5 %; Neutrophils # (A) 24.8 k/uL (1.3-7.7); Neutrophils % (A) 90 %; Platelet Count 287 k/uL (150-450); RBC 3.37 m/uL (3.80-5.40); RDW 15.5 % (11.5-15.5); WBC 27.8 k/uL (3.8-10.6)
[2020-08-19 17:58] LABS: INR 0.9 (<1.2); Partial Thromboplastin Time 20.1 sec (22.0-30.0); Prothrombin Time 9.7 sec (9.0-12.0)
[2020-08-19 18:40] LABS: % Iron Saturation 0.7 (12.00-45.00)
[2020-08-19] MEDS ORDERED: AMIODARONE 300 MG in DEXTROSE 5% IN WATER 250 ML IV SCH ×2 (19:00)
[2020-08-19] MEDS: AMIODARONE 360 MG in DEXTROSE 5% IN WATER 200 ML IV SCH ×2 (19:20)
--- NOTE | 2020-08-19 19:38 | PN ---
PROGRESS NOTE DATE OF SERVICE: 08/19/2020 This 55-year-old woman who was admitted with COPD, asthma exacerbation, also had bilateral pneumonia. The patient was tested COVID negative, even though the patient had some contact with COVID. The patient also had paroxysmal atrial fibrillation with rapid ventricular rate and possible cardiomyopathy, ejection fraction 30% to 35%. The patient also is developing multi-organ failure indicated by worsening creatinine, which is at 4.16 at this time. The troponin is elevated up to 0.68. The patient is on a PEEP of 16. The possibility of ARDS is also considered. Procalcitonin is high. Past medical history reviewed. Review of systems could not be taken. The patient also had Strep pneumoniae grown from the sputum culture. CURRENT MEDICATIONS: Reviewed. They include DuoNeb q.i.d. and p.r.n., amiodarone, Unasyn 3 grams, Lipitor, Pulmicort, Peridex, heparin. Doses are reviewed. PHYSICAL EXAMINATION: Patient is mechanically ventilated and sedated. Pulse is 92, blood pressure 116/82, respiration 36, temperature 98 degrees, pulse ox 90% on mechanical ventilation. Vent settings are noted. PEEP of 16. HEENT: Conjunctivae normal. NECK: Obese. CARDIOVASCULAR SYSTEM: S1, S2 muffled. RESPIRATORY SYSTEM: Breath sounds diminished at the bases. A few scattered rhonchi and crackles. ABDOMEN: Soft, obese, non-tender. LEGS: No edema. No swelling. NERVOUS SYSTEM: Diffusely weak. LABS: Lab investigations at this time show WBC 27.8, hemoglobin 9.2, and AST is 80, ALT is 30, albumin 5.9. ASSESSMENT: 1. Chronic obstructive pulmonary disease, acute exacerbation, as well as asthma, acute exacerbation, with bilateral pneumonia with possible sepsis with acute hypoxic respiratory failure, present on admission, on mechanical ventilation. 2. Streptococcus pneumoniae from the sputum culture. 3. Status post bronchoscopy and mucus plugs. 4. Acute renal failure with acute tubular necrosis. 5. Possible multi-organ failure. 6. Possible developing acute respiratory distress syndrome. 7. Possible severe sepsis and septic shock secondary to above. 8. Increased white count. 9. Atrial fibrillation, paroxysmal, with fast ventricular rate. 10.Anemia, normocytic. 11.Change in mental status with acute metabolic encephalopathy, multifactorial. 12.Thrombocytopenia. 13.Acute respiratory acidosis. 14.Hypokalemia. 15.Hypomagnesemia. 16.Elevated procalcitonin. 17.Elevated plasma lactic acid, possibly secondary to sepsis. 18.History of sleep apnea. 19.History of obesity. 20.Hypothyroidism. 21.History of bladder surgery. 22.History of anxiety. 23.Obesity with body mass index of 50.8. 24.FULL CODE. RECOMMENDATIONS AND DISCUSSION: I recommend to continue current medications, continue with the monitoring, symptomatic treatment, bronchodilators, steroids. Continue with antibiotics. Nephrology has been consulted for possible hemodialysis. Otherwise, chest x-ray was reviewed. Closely follow with multiple consultants. Cardiology input appreciated. Prognosis extremely guarded because of multiple complex medical issues. Further recommendations to follow. MMODL / IJN: [id number] /
[2020-08-19] MEDS: ATORVASTATIN 80 MG TAB PO SCH (21:19)
--- NOTE | 2020-08-19 21:53 | PN ---
PROGRESS NOTE DATE OF SERVICE: 08/19/2020 REASON FOR FOLLOWUP: Aspiration pneumonia. INTERVAL HISTORY: The patient is currently afebrile. The patient is hemodynamically stable. She still remains intubated on the vent. The patient did have worsening of her kidney function. Dialysis catheter has been placed by Vascular Surgery. No significant purulent secretion through the ET or any diarrhea reported by the nursing staff. PHYSICAL EXAMINATION: Blood pressure 156/80 with a pulse of 137, temperature of 98. General description is a middle-aged female intubated on the vent. RESPIRATORY SYSTEM: Unlabored breathing. Coarse breath sounds bilaterally. ABDOMEN: Soft. No tenderness. EXTREMITIES: No edema of the feet. LABS: Hemoglobin is 9.2, white count 27.8. Bronch culture so far negative. DIAGNOSTIC IMPRESSION AND PLAN: Patient with acute respiratory failure which is multifactorial. Sputum has been Strep pneumoniae and there is concern about aspiration pneumonia. Patient is covered with Unasyn. Dose has been adjusted to every 24 hours per pharmacy in view of her renal failure; to continue and monitor clinical course closely. Prognosis remains guarded. MMODL / IJN: [id number] /
[2020-08-19 23:57] LABS: Glucose,Whole Blood 180 mg/dL (75-99)
[2020-08-20] MEDS: INSULIN ASPART (NovoLOG) 100 UNIT/ML VIAL SQ SCH ×4 (00:08→17:53)
[2020-08-20] MEDS: HEPARIN SOD,PORK IN 0.45% NACL 25,000 UNIT in 0.45% NACL 1 250ML.BAG IV SCH ×2 (00:12→17:55)
[2020-08-20] MEDS: AMIODARONE 360 MG in DEXTROSE 5% IN WATER 200 ML IV SCH ×4 (01:44→10:57)
[2020-08-20 02:22] LABS: Hepatitis B Surface AB- Quant 3.5 mIU/mL; Hepatitis B Surface Antibody Non-Reactive (Non-Reactive); Hepatitis B Surface Antigen Non-Reactive (Non-Reactive)
[2020-08-20] MEDS: IPRATROPIUM-ALBUTEROL 3 ML NEB INHALATION SCH ×6 (03:03→23:07)
[2020-08-20 04:55] LABS: ABG Base Excess -6.5 mmol/L; ABG HCO3 21 mmol/L (21-25); ABG Oxygen Saturation 94.3 % (94-97); ABG PCO2 51 mmHg (35-45); ABG PH 7.23 (7.35-7.45); ABG PO2 79 mmHg (83-108); ABG TCO2 23 mmol/L (19-24)
[2020-08-20 05:21] LABS: HCT 29.4 % (34.0-46.0); HGB 9.3 gm/dL (11.4-16.0); Hypochromasia Slight; MCHC 31.7 g/dL (31.0-37.0); MCV 85.3 fL (80.0-100.0); Platelet Count 304 k/uL (150-450); RBC 3.44 m/uL (3.80-5.40); RDW 15.5 % (11.5-15.5)
[2020-08-20 05:27] LABS: Allen Test Performed? no
[2020-08-20 05:32] LABS: Albumin 2.9 g/dL (3.5-5.0); Calcium 6.7 mg/dL (8.4-10.2); Potassium 4.4 mmol/L (3.5-5.1); Total Bilirubin 1.6 mg/dL (0.2-1.3); Total Protein 6.1 g/dL (6.3-8.2)
[2020-08-20 05:47] LABS: Glucose,Whole Blood 180 mg/dL (75-99)
[2020-08-20 06:01] LABS: Band Neutrophils % 17 %; Myelocytes % 3 %; Neutrophils % (M) 65 %; Nucleated Red Blood Cells 1 /100 WBC (0-0); Total Cells Counted 100
[2020-08-20 06:03] LABS: Lymphocytes # (M) 3.64 k/uL (1.0-4.8); Monocytes # (M) 1.32 k/uL (0-1.0); Myelocytes # (M) 0.99 k/uL (0); WBC 33.1 k/uL (3.8-10.6)
[2020-08-20] MEDS: LEVOTHYROXINE 100 MCG TAB PO SCH (06:04)
[2020-08-20 06:05] LABS: Toxic Granulation Present
[2020-08-20] MEDS: BUDESONIDE 1 MG/2 ML NEBU INHALATION SCH ×2 (07:30→19:02)
[2020-08-20] MEDS: FORMOTEROL FUMARATE 20 MCG/2 ML NEBU INHALATION SCH ×2 (08:35→19:01)
--- NOTE | 2020-08-20 09:02 | P.GSCN ---
History of Present Illness History of present illness: Patient is a 55-year-old white female, I was consulted for urgent L Katina catheter placement for acute renal failure. Patient has been admitted with a pneumonia and she has been intubated great patient was seen in the room she has morbid obesity. Chest bilateral rhonchi Abdomen protuberant no peritoneal sign Vascular femorals are 1+ patient has a marked swelling of the both lower extr emity Plan is placement of the dialysis catheter Past Medical History Past Medical History: Asthma, Sleep Apnea/CPAP/BIPAP, Thyroid Disorder Additional Past Medical History / Comment(s): Morbid obesity, obstructive sleep apnea, bronchial asthma, hypothyroidism, recent hospitalization for a left lung pneumonia and January 2017. History of Any Multi-Drug Resistant Organisms: None Reported Past Surgical History: Bladder Surgery, Hysterectomy Past Anesthesia/Blood Transfusion Reactions: No Reported Reaction Past Psychological History: Anxiety Past Alcohol Use History: None Reported Past Drug Use History: None Reported - Past Family History Mother Family Medical History: CVA/TIA, Diabetes Mellitus, Myocardial Infarction ([place]) Medications and Allergies Home Medications Medication Instructions Recorded Confirmed Type Fluticasone Nasal [place] [Flonase 1 spray EA NOSTRIL DAILY 01/19/17 08/15/20 History Nasal [place]] Fluticasone/Salmeterol [Advair 1 puff INHALATION RT-BID 01/19/17 08/15/20 History 500-50 Diskus] Levothyroxine Sodium [Synthroid] 200 mcg PO DAILY 01/19/17 08/15/20 History Zafirlukast 20 mg PO BID 01/19/17 08/15/20 History Albuterol Inhaler [Ventolin Hfa 2 puff INHALATION RT-Q4H PRN 08/15/20 08/15/20 History Inhaler] PARoxetine HCL [Paxil] 40 mg PO DAILY 08/15/20 08/15/20 History metFORMIN HCL [Glucophage] 500 mg PO BID 08/15/20 08/15/20 History predniSONE See Taper PO DIRECTED 08/15/20 08/15/20 History Allergies Allergy/AdvReac Type Severity Reaction Status Date / Time egg AdvReac Unknown Verified 08/15/20 22:44 milk AdvReac Unknown Verified 08/15/20 22:44 Surgical - Exam Vital Signs Temp Pulse Resp BP Pulse Ox 101.9 F H 143 H 24 114/70 97 08/15/20 21:39 08/15/20 21:39 08/15/20 21:39 08/15/20 21:39 08/15/20 21:39 Results - Labs 08/20/20 04:45 08/20/20 04:45 Abnormal Lab Results - Last 24 Hours (Table) 08/19/20 08/19/20 08/19/20 Range/Units 04:25 04:25 05:25 WBC 28.8 H (3.8-10.6) k/uL RBC 3.44 L (3.80-5.40) m/uL Hgb 9.2 L (11.4-16.0) gm/dL Hct 29.1 L (34.0-46.0) % RDW 15.6 H (11.5-15.5) % Neutrophils # (1.3-7.7) k/uL Neutrophils # (Manual) 25.30 H (1.3-7.7) k/uL Lymphocytes # (Manual) 0.86 L (1.0-4.8) k/uL Monocytes # (0-1.0) k/uL Monocytes # (Manual) 1.44 H (0-1.0) k/uL Basophils # (0-0.2) k/uL Metamyelocytes # (Man) 0.86 H (0) k/uL Myelocytes # (Manual) 0.86 H (0) k/uL Nucleated RBCs (0-0) /100 WBC APTT (22.0-30.0) sec ABG pH (7.35-7.45) ABG pCO2 (35-45) mmHg ABG pO2 (83-108) mmHg ABG Total CO2 (19-24) mmol/L ABG O2 Saturation (94-97) % Sodium (137-145) mmol/L Carbon Dioxide (22-30) mmol/L BUN (7-17) mg/dL Creatinine (0.52-1.04) mg/dL Glucose (74-99) mg/dL POC Glucose (mg/dL) (75-99) mg/dL Calcium (8.4-10.2) mg/dL Iron 2 L (50-170) ug/dL % Saturation 0.70 L (12.00-45.00) Total Bilirubin (0.2-1.3) mg/dL AST (14-36) U/L Alkaline Phosphatase (38-126) U/L Troponin I (0.000-0.034) ng/mL Total Protein (6.3-8.2) g/dL Albumin (3.5-5.0) g/dL Vitamin D 25-Hydroxy <4.2 L (30.0-100.0) ng/mL 08/19/20 08/19/20 08/19/20 Range/Units 13:57 16:40 17:09 WBC (3.8-10.6) k/uL RBC (3.80-5.40) m/uL Hgb (11.4-16.0) gm/dL Hct (34.0-46.0) % RDW (11.5-15.5) % Neutrophils # (1.3-7.7) k/uL Neutrophils # (Manual) (1.3-7.7) k/uL Lymphocytes # (Manual) (1.0-4.8) k/uL Monocytes # (0-1.0) k/uL Monocytes # (Manual) (0-1.0) k/uL Basophils # (0-0.2) k/uL Metamyelocytes # (Man) (0) k/uL Myelocytes # (Manual) (0) k/uL Nucleated RBCs (0-0) /100 WBC APTT (22.0-30.0) sec ABG pH 7.24 L (7.35-7.45) ABG pCO2 57 H (35-45) mmHg ABG pO2 36 L* (83-108) mmHg ABG Total CO2 26 H (19-24) mmol/L ABG O2 Saturation 58.6 L (94-97) % Sodium (137-145) mmol/L Carbon Dioxide (22-30) mmol/L BUN (7-17) mg/dL Creatinine (0.52-1.04) mg/dL Glucose (74-99) mg/dL POC Glucose (mg/dL) 239 H 216 H (75-99) mg/dL Calcium (8.4-10.2) mg/dL Iron (50-170) ug/dL % Saturation (12.00-45.00) Total Bilirubin (0.2-1.3) mg/dL AST (14-36) U/L Alkaline Phosphatase (38-126) U/L Troponin I (0.000-0.034) ng/mL Total Protein (6.3-8.2) g/dL Albumin (3.5-5.0) g/dL Vitamin D 25-Hydroxy (30.0-100.0) ng/mL 08/19/20 08/19/20 08/19/20 Range/Units 17:19 17:19 17:19 WBC 27.8 H (3.8-10.6) k/uL RBC 3.37 L (3.80-5.40) m/uL Hgb 9.2 L (11.4-16.0) gm/dL Hct 28.6 L (34.0-46.0) % RDW (11.5-15.5) % Neutrophils # 24.8 H (1.3-7.7) k/uL Neutrophils # (Manual) (1.3-7.7) k/uL Lymphocytes # (Manual) (1.0-4.8) k/uL Monocytes # 1.3 H (0-1.0) k/uL Monocytes # (Manual) (0-1.0) k/uL Basophils # 0.3 H (0-0.2) k/uL Metamyelocytes # (Man) (0) k/uL Myelocytes # (Manual) (0) k/uL Nucleated RBCs (0-0) /100 WBC APTT 20.1 L (22.0-30.0) sec ABG pH (7.35-7.45) ABG pCO2 (35-45) mmHg ABG pO2 (83-108) mmHg ABG Total CO2 (19-24) mmol/L ABG O2 Saturation (94-97) % Sodium (137-145) mmol/L Carbon Dioxide (22-30) mmol/L BUN (7-17) mg/dL Creatinine (0.52-1.04) mg/dL Glucose (74-99) mg/dL POC Glucose (mg/dL) (75-99) mg/dL Calcium (8.4-10.2) mg/dL Iron (50-170) ug/dL % Saturation (12.00-45.00) Total Bilirubin (0.2-1.3) mg/dL AST (14-36) U/L Alkaline Phosphatase (38-126) U/L Troponin I 0.068 H* (0.000-0.034) ng/mL Total Protein (6.3-8.2) g/dL Albumin (3.5-5.0) g/dL Vitamin D 25-Hydroxy (30.0-100.0) ng/mL 08/19/20 08/20/20 08/20/20 Range/Units 23:55 04:45 04:45 WBC 33.1 H (3.8-10.6) k/uL RBC 3.44 L (3.80-5.40) m/uL Hgb 9.3 L (11.4-16.0) gm/dL Hct 29.4 L (34.0-46.0) % RDW (11.5-15.5) % Neutrophils # (1.3-7.7) k/uL Neutrophils # (Manual) 27.10 H (1.3-7.7) k/uL Lymphocytes # (Manual) (1.0-4.8) k/uL Monocytes # (0-1.0) k/uL Monocytes # (Manual) 1.32 H (0-1.0) k/uL Basophils # (0-0.2) k/uL Metamyelocytes # (Man) (0) k/uL Myelocytes # (Manual) 0.99 H (0) k/uL Nucleated RBCs 1 H (0-0) /100 WBC APTT (22.0-30.0) sec ABG pH (7.35-7.45) ABG pCO2 (35-45) mmHg ABG pO2 (83-108) mmHg ABG Total CO2 (19-24) mmol/L ABG O2 Saturation (94-97) % Sodium 135 L (137-145) mmol/L Carbon Dioxide 19 L (22-30) mmol/L BUN 59 H (7-17) mg/dL Creatinine 4.58 H (0.52-1.04) mg/dL Glucose 176 H (74-99) mg/dL POC Glucose (mg/dL) 180 H (75-99) mg/dL Calcium 6.7 L (8.4-10.2) mg/dL Iron (50-170) ug/dL % Saturation (12.00-45.00) Total Bilirubin 1.6 H (0.2-1.3) mg/dL AST 79 H (14-36) U/L Alkaline Phosphatase 138 H (38-126) U/L Troponin I (0.000-0.034) ng/mL Total Protein 6.1 L (6.3-8.2) g/dL Albumin 2.9 L (3.5-5.0) g/dL Vitamin D 25-Hydroxy (30.0-100.0) ng/mL 08/20/20 08/20/20 Range/Units 04:53 05:45 WBC (3.8-10.6) k/uL RBC (3.80-5.40) m/uL Hgb (11.4-16.0) gm/dL Hct (34.0-46.0) % RDW (11.5-15.5) % Neutrophils # (1.3-7.7) k/uL Neutrophils # (Manual) (1.3-7.7) k/uL Lymphocytes # (Manual) (1.0-4.8) k/uL Monocytes # (0-1.0) k/uL Monocytes # (Manual) (0-1.0) k/uL Basophils # (0-0.2) k/uL Metamyelocytes # (Man) (0) k/uL Myelocytes # (Manual) (0) k/uL Nucleated RBCs (0-0) /100 WBC APTT (22.0-30.0) sec ABG pH 7.23 L (7.35-7.45) ABG pCO2 51 H (35-45) mmHg ABG pO2 79 L (83-108) mmHg ABG Total CO2 (19-24) mmol/L ABG O2 Saturation (94-97) % Sodium (137-145) mmol/L Carbon Dioxide (22-30) mmol/L BUN (7-17) mg/dL Creatinine (0.52-1.04) mg/dL Glucose (74-99) mg/dL POC Glucose (mg/dL) 180 H (75-99) mg/dL Calcium (8.4-10.2) mg/dL Iron (50-170) ug/dL % Saturation (12.00-45.00) Total Bilirubin (0.2-1.3) mg/dL AST (14-36) U/L Alkaline Phosphatase (38-126) U/L Troponin I (0.000-0.034) ng/mL Total Protein (6.3-8.2) g/dL Albumin (3.5-5.0) g/dL Vitamin D 25-Hydroxy (30.0-100.0) ng/mL Microbiology - Last 24 Hours (Table) 08/17/20 10:36 Gram Stain - Final Bronchoalviolar Lavage - Left Bronchial Washings Culture - Final 08/15/20 22:19 Blood Culture - Preliminary Blood No Growth after 96 hours Diabetes panel 08/20/20 Range/Units 04:45 Sodium 135 L (137-145) mmol/L Potassium 4.4 (3.5-5.1) mmol/L Chloride 100 (98-107) mmol/L Carbon Dioxide 19 L (22-30) mmol/L BUN 59 H (7-17) mg/dL Creatinine 4.58 H (0.52-1.04) mg/dL Glucose 176 H (74-99) mg/dL Calcium 6.7 L (8.4-10.2) mg/dL AST 79 H (14-36) U/L ALT 31 (4-34) U/L Alkaline Phosphatase 138 H (38-126) U/L Total Protein 6.1 L (6.3-8.2) g/dL Albumin 2.9 L (3.5-5.0) g/dL Calcium panel 08/20/20 Range/Units 04:45 Calcium 6.7 L (8.4-10.2) mg/dL Albumin 2.9 L (3.5-5.0) g/dL Pituitary panel 08/20/20 Range/Units 04:45 Sodium 135 L (137-145) mmol/L Potassium 4.4 (3.5-5.1) mmol/L Chloride 100 (98-107) mmol/L Carbon Dioxide 19 L (22-30) mmol/L BUN 59 H (7-17) mg/dL Creatinine 4.58 H (0.52-1.04) mg/dL Glucose 176 H (74-99) mg/dL Calcium 6.7 L (8.4-10.2) mg/dL Adrenal panel 08/20/20 Range/Units 04:45 Sodium 135 L (137-145) mmol/L Potassium 4.4 (3.5-5.1) mmol/L Chloride 100 (98-107) mmol/L Carbon Dioxide 19 L (22-30) mmol/L BUN 59 H (7-17) mg/dL Creatinine 4.58 H (0.52-1.04) mg/dL Glucose 176 H (74-99) mg/dL Calcium 6.7 L (8.4-10.2) mg/dL Total Bilirubin 1.6 H (0.2-1.3) mg/dL AST 79 H (14-36) U/L ALT 31 (4-34) U/L Alkaline Phosphatase 138 H (38-126) U/L Total Protein 6.1 L (6.3-8.2) g/dL Albumin 2.9 L (3.5-5.0) g/dL
--- NOTE | 2020-08-20 09:04 | P.PCN ---
Description of Procedure: Preoperative diagnoses is acute chronic renal failure Postoperative same Procedure ultrasound-guided dialysis catheter placed left femoral approach Procedure left groin was prepped and draped for pressure and manner 1% lidocaine infiltrated ultrasound-guided micropuncture introduced to the left femoral vein micropuncture guidewire was passed and 4-Cambodian dilator advanced. The guidewire. Then we passed a regular guidewire without any resistance dilator was advanced on the top of guidewire then we placed a double-lumen dialysis catheter free flow noted flushed with heparin saline and Hep-Lock secured with 3-0 nylon dressing applied patient tolerated the procedure well
--- NOTE | 2020-08-20 09:05 | XR ---
EXAMINATION TYPE: XR chest 1V portable DATE OF EXAM: 08/20/2020 COMPARISON: 08/19/2020 HISTORY: Tube placement TECHNIQUE: Single frontal view of the chest is obtained. FINDINGS: The heart is enlarged and there is an ET and NG tube. Bilateral consolidation and pleural effusion. No pneumothorax. Diffuse interstitial pattern. IMPRESSION: Diffuse pleural-parenchymal changes have progressed at the right lung base. Stable on th e left. Correlate for pulmonary edema versus diffuse pneumonia.
--- NOTE | 2020-08-20 09:41 | PN ---
PROGRESS NOTE PULMONARY/CRITICAL CARE PROGRESS NOTE: DATE OF SERVICE: 08/20/2020 Critical care time is 33 minutes. This is a 55-year-old female admitted on August 16. She came in with sepsis. She was intubated on August 16 for hypoxemic respiratory failure. She self-extubated herself on the same day and was reintubated on the same day. She remains on mechanical ventilator with really not much in the way of progress towards extubation. Currently, her vent settings are volume assist-control mode, rate of 36, tidal volume 350, FiO2 of 60%, PEEP of 16, blood gases show a pO2 of 79, pCO2 of 51 and a pH of 7.23. These blood gases are consistent with a respiratory and metabolic acidosis. The blood gases were done actually on 65%. Currently, she is on 60%. The patient is also on propofol at 50 mcg/kg per minute, saline at KVO, amiodarone at 1 mg a minute, Nimbex at 2 mcg/kg per minute, fentanyl 25 mcg/hour and heparin via weight-based protocol. She was on dobutamine but the dobutamine cause significant hypotension. Her peak airway pressure is 42 cm of water. Her plateau pressure is 32 cm of water. We are going to start tube feeds on her. She receive hemodialysis yesterday and 2 L was removed. We are going to DC the Nimbex or at least try to reduce the dose. We will place a PICC line. Will attempt to get the femoral central line out of her. Currently, vital signs are reviewed. Her temperature is 98.3, heart rate 75, respiratory rate 36, blood pressure 103/70 mean 81 saturations are 92%. Appears in no acute distress. Currently sedated and paralyzed. HEENT: Examination is grossly unremarkable. There is an orally placed endotracheal tube and NG tube. NECK: Supple, full range of motion. No adenopathy. Neck veins are flat. CARDIOVASCULAR: Examination reveals regular rhythm and rate. Heart rate is 81 beats per minute. S1, S2 normal. Heart sounds are distant. LUNGS: Reveal diffuse bilateral rhonchi. No wheezes or crackles. Breath sounds equal. ABDOMEN: Obese. Bowel sounds are noted. EXTREMITIES are intact. There is significant edema. No cyanosis or clubbing. SKIN: Without rash. NEUROLOGIC: Examination cannot be adequately assessed. White count 33.1, hemoglobin 9.3, hematocrit 29.4, platelet count 304,000, PTT is 27.9. Sodium 135, potassium 4.4, chloride 100, CO2 is 19, anion gap 16, BUN and creatinine were 59 and 4.58. BUN and creatinine from yesterday were 54 and 4.16. Calcium is 6.7, bilirubin 1.6, AST 79. TSH is normal. Microbiology is showing strep pneumoniae in the sputum from August 16. The most recent chest x-ray dated August 20 shows diffuse pleural parenchymal changes, which are apparently are worse at the right lung base. This could be consistent with pneumonia and/or fluid overload. CURRENT MEDICATIONS: Reviewed. She is currently on amiodarone at 1 mg/minute, Unasyn, aspirin, Lipitor, Pulmicort, chlorhexidine, Nimbex, fentanyl, formoterol, heparin via weight based protocol, insulin p.r.n., DuoNeb, levothyroxine, morphine, Narcan, Protonix, Paxil, propofol and saline IV. ASSESSMENT: 1. Acute hypoxemic and hypercapnic respiratory failure secondary to left lower lobe pneumonia with sepsis, status post intubation on August 16, 2020. 2. Status post bronchoscopy, August 17, 2020. 3. Sepsis with septic shock secondary to left lower lobe pneumonia caused by a Streptococcus pneumoniae. 4. Lactic acidemia. 5. Anion gap metabolic acidosis. 6. Acute kidney injury. 7. Acute exacerbation of asthma. 8. Sleep apnea syndrome. 9. Pickwickian syndrome. 10.Type 2 diabetes mellitus. 11.History of depression/anxiety. 12.COVID 19 testing, which was negative. 13.Hypothyroidism. PLAN: The patient was started on dobutamine by Cardiology yesterday. She became hypotensive. The dobutamine was discontinued. The patient remains on propofol at 50 mcg/kg per minute 0.9 at KVO amiodarone at 1 mg/minute Nimbex at 2 mcg/minute and fentanyl at 25 mcg/hour. She is also on heparin via weight based protocol. We will see if we cannot wean or DC the Nimbex. She will get hemodialysis today. She had hemodialysis yesterday with 2 L being removed. We will see if we can get the femoral triple- lumen catheter out. We will place a PICC line. Overall prognosis remains very poor. Critical care time 33 minutes. MMODL / IJN: [id number] / ANIKAD
[2020-08-20] MEDS: PANTOPRAZOLE 40 MG/10 ML VIAL IVP SCH (10:56)
[2020-08-20] MEDS: ASPIRIN 81 MG PO SCH (10:56)
[2020-08-20] MEDS: SODIUM CHLORIDE 0.9% 1,000 ML IV SCH (10:56)
[2020-08-20] MEDS: PARoxetine 20 MG TAB PO SCH (10:56)
[2020-08-20] MEDS: CHLORHEXIDINE GLUCONATE 15 ML CUP MUCOUS MEM SCH ×2 (10:56→22:04)
--- NOTE | 2020-08-20 11:23 | PN ---
PROGRESS NOTE Patient is seen for followup for acute kidney injury, oliguric ATN secondary to sepsis, hypotension. Patient was dialyzed yesterday, we had about 2 L of fluid removed. She has significant volume overload and has had difficulty in oxygenation. The patient had gone into atrial fibrillation with RVR with dobutamine. However, this was discontinued. She is currently in sinus rhythm. PHYSICAL EXAMINATION: On examination today, patient is on the vent. She is sedated with Nimbex on board as well. Blood pressure about 114/72, heart rate 81 per minute, she is afebrile. Examination shows patient is significantly volume overloaded. She is tolerating her tube feeds. Abdomen is morbidly obese. The femoral catheter is in the groin. It is functioning well. Patient is seen on dialysis. She remains on the vent. Significant facial edema and edema of upper extremities noted as well. BONBON DIPPER exam cannot be performed secondary to sedation and paralysis. LABS: Show sodium 135, potassium 4.4, chloride 100, CO2 is 19, BUN 59, serum creatinine 4.58. ASSESSMENT: 1. Acute kidney injury, ATN currently oliguric secondary to hypotension and sepsis along with severe volume overload. We will plan for daily dialysis mostly for volume overload to help with oxygenation. 2. Streptococcal pneumonia with acute hypoxic respiratory failure, currently on the vent. 3. Hypocalcemia and severe nutrition vitamin D deficiency. 4. Atrial fibrillation with RVR maintained on amiodarone, rate is controlled now. 5. Morbid obesity. PLAN: Daily dialysis/ultrafiltration, add vitamin D supplementation. MMODL / IJN: [id number] /
[2020-08-20 11:43] LABS: Glucose,Whole Blood 126 mg/dL (75-99)
--- NOTE | 2020-08-20 11:56 | P.PN ---
Subjective Progress Note Date: 08/20/20 CHIEF COMPLAINT: A. fib with RVR HISTORY OF PRESENT ILLNESS: Patient examined this morning at the bedside. She remains on mechanical ventilation. She underwent hemodialysis yesterday with removal of 2 L. She remains off vasopressors. She is maintaining sinus rhythm on telemetry. She remains on IV heparin and IV amiodarone. PHYSICAL EXAM: VITAL SIGNS: Reviewed. GENERAL: Well-developed in no acute distress. HEENT: Head is normocephalic. Pupils are equal, round. Sclerae anicteric. Mucous membranes of the mouth are moist. Neck supple. No JVD or thyromegaly LUNGS: Respirations even and unlabored. Lungs diminished. HEART: Regular rate and rhythm. S1 and S2 heard. ABDOMEN: Soft. Nondistended. Nontender. EXTREMITIES: Normal range of motion. No clubbing or cyanosis. Peripheral pulses intact. No lower extremity edema NEUROLOGIC: Sedated on mechanical ventilation ASSESSMENT: Acute hypoxic respiratory failure requiring mechanical ventilation secondary to pneumonia Sepsis, secondary to pneumonia Paroxysmal atrial fibrillation with RVR Cardiomyopathy, unknown if ischemic or nonischemic, EF 30-35% Abnormal troponins, possible NSTEMI, may be secondary to hypoxia, sepsis, and/or afib with RVR, however can not rule out underlying coronary artery disease Severe pulmonary hypertension Acute kidney injury Hypotension requiring vasopressor support History of asthma Hypothyroidism Morbid obesity BMI 57.5 PLAN: Continue ventilator management per Dr. Gray Continue dialysis per nephrology Continue aspirin and atorvastatin Continue IV heparin Transition IV amiodarone to oral dosing Will hold off on beta ada secondary to history of asthma per Dr. Fang. Further recommendations pending patient's course Nurse practitioner note has been reviewed by physician. Signing provider agrees with the documented findings, assessment, and plan of care. Objective - Vital Signs Vital signs: Vital Signs Temp 97.9 F 08/20/20 08:00 Pulse 79 08/20/20 11:25 Resp 36 H 08/20/20 10:00 BP 133/85 08/20/20 10:00 Pulse Ox 90 L 08/20/20 10:00 Intake & Output 08/19/20 08/20/20 08/20/20 18:59 06:59 18:59 Intake Total 4746.216 2869.503 324 Output Total 156 2030 5 Balance 1235.287 -659.497 319 Weight 162.1 kg Intake: IV 803 408 112 0.9 400 275 100 Ampicillin-Sulbactam 3 gm 100 In Sodium Chloride 0.9% 100 ml @ 200 mls/hr IVPB Q12H [facility] Rx#:[id number] Dextrose 5% in Water 1, 400 000 ml @ 100 mls/hr IV . [id number] FREDRICK with Sodium Bicarb (1 Meq/ml) 150 ml Rx#:[id number] Pressure Bag 3 33 12 Intake, IV Titration 588.287 962.503 200 Amount Amiodarone 360 mg In 200 200 Dextrose 5% in Water 200 ml @ 1 MG/MIN 33.333 mls/ hr IV .Q6H [facility] Rx#: [id number] Ampicillin-Sulbactam 3 gm 100 In Sodium Chloride 0.9% 100 ml @ 200 mls/hr IVPB Q24H [facility] Rx#:[id number] Cisatracurium 200 mg In 15.287 184.713 Sodium Chloride 0.9% 180 ml @ 2 MCG/KG/MIN 17.146 mls/hr IV .[id number] [facility] Rx #:[id number] Heparin Sod,Pork in 0.45% 62.29 NaCl 25,000 unit In 0.45 % NaCl 1 250ml.bag @ 6.18 UNITS/KG/HR 9.993 mls/hr IV .Q24H [facility] Rx#: [id number] fentaNYL (PF) 1,000 mcg 73 15.5 In Sodium Chloride 0.9% 80 ml @ As Directed IV . Q0M [facility] Rx#:[id number] propofoL 1,000 mg In 400.000 500 Empty Bag 1 bag @ Titrate IV .Q0M [facility] Rx#: [id number] Tube Feeding 12 Output: Urine 156 30 5 Hemodialysis 1999 Other: Voiding Method Indwelling Catheter Indwelling Catheter Indwelling Catheter ABP, PAP, CO, CI - Last Documented Arterial Blood Pressure 130/80 - Labs CBC & Chem 7: 08/20/20 04:45 08/20/20 04:45 Labs: Abnormal Lab Results - Last 24 Hours (Table) 08/19/20 08/19/20 08/19/20 Range/Units 04:25 05:25 13:57 WBC (3.8-10.6) k/uL RBC (3.80-5.40) m/uL Hgb (11.4-16.0) gm/dL Hct (34.0-46.0) % Neutrophils # (1.3-7.7) k/uL Neutrophils # (Manual) (1.3-7.7) k/uL Monocytes # (0-1.0) k/uL Monocytes # (Manual) (0-1.0) k/uL Basophils # (0-0.2) k/uL Myelocytes # (Manual) (0) k/uL Nucleated RBCs (0-0) /100 WBC APTT (22.0-30.0) sec ABG pH (7.35-7.45) ABG pCO2 (35-45) mmHg ABG pO2 (83-108) mmHg ABG Total CO2 (19-24) mmol/L ABG O2 Saturation (94-97) % Sodium (137-145) mmol/L Carbon Dioxide (22-30) mmol/L BUN (7-17) mg/dL Creatinine (0.52-1.04) mg/dL Glucose (74-99) mg/dL POC Glucose (mg/dL) 239 H (75-99) mg/dL Calcium (8.4-10.2) mg/dL Iron 2 L (50-170) ug/dL % Saturation 0.70 L (12.00-45.00) Total Bilirubin (0.2-1.3) mg/dL AST (14-36) U/L Alkaline Phosphatase (38-126) U/L Troponin I (0.000-0.034) ng/mL Total Protein (6.3-8.2) g/dL Albumin (3.5-5.0) g/dL Vitamin D 25-Hydroxy <4.2 L (30.0-100.0) ng/mL 08/19/20 08/19/20 08/19/20 Range/Units 16:40 17:09 17:19 WBC 27.8 H (3.8-10.6) k/uL RBC 3.37 L (3.80-5.40) m/uL Hgb 9.2 L (11.4-16.0) gm/dL Hct 28.6 L (34.0-46.0) % Neutrophils # 24.8 H (1.3-7.7) k/uL Neutrophils # (Manual) (1.3-7.7) k/uL Monocytes # 1.3 H (0-1.0) k/uL Monocytes # (Manual) (0-1.0) k/uL Basophils # 0.3 H (0-0.2) k/uL Myelocytes # (Manual) (0) k/uL Nucleated RBCs (0-0) /100 WBC APTT (22.0-30.0) sec ABG pH 7.24 L (7.35-7.45) ABG pCO2 57 H (35-45) mmHg ABG pO2 36 L* (83-108) mmHg ABG Total CO2 26 H (19-24) mmol/L ABG O2 Saturation 58.6 L (94-97) % Sodium (137-145) mmol/L Carbon Dioxide (22-30) mmol/L BUN (7-17) mg/dL Creatinine (0.52-1.04) mg/dL Glucose (74-99) mg/dL POC Glucose (mg/dL) 216 H (75-99) mg/dL Calcium (8.4-10.2) mg/dL Iron (50-170) ug/dL % Saturation (12.00-45.00) Total Bilirubin (0.2-1.3) mg/dL AST (14-36) U/L Alkaline Phosphatase (38-126) U/L Troponin I (0.000-0.034) ng/mL Total Protein (6.3-8.2) g/dL Albumin (3.5-5.0) g/dL Vitamin D 25-Hydroxy (30.0-100.0) ng/mL 08/19/20 08/19/20 08/19/20 Range/Units 17:19 17:19 23:55 WBC (3.8-10.6) k/uL RBC (3.80-5.40) m/uL Hgb (11.4-16.0) gm/dL Hct (34.0-46.0) % Neutrophils # (1.3-7.7) k/uL Neutrophils # (Manual) (1.3-7.7) k/uL Monocytes # (0-1.0) k/uL Monocytes # (Manual) (0-1.0) k/uL Basophils # (0-0.2) k/uL Myelocytes # (Manual) (0) k/uL Nucleated RBCs (0-0) /100 WBC APTT 20.1 L (22.0-30.0) sec ABG pH (7.35-7.45) ABG pCO2 (35-45) mmHg ABG pO2 (83-108) mmHg ABG Total CO2 (19-24) mmol/L ABG O2 Saturation (94-97) % Sodium (137-145) mmol/L Carbon Dioxide (22-30) mmol/L BUN (7-17) mg/dL Creatinine (0.52-1.04) mg/dL Glucose (74-99) mg/dL POC Glucose (mg/dL) 180 H (75-99) mg/dL Calcium (8.4-10.2) mg/dL Iron (50-170) ug/dL % Saturation (12.00-45.00) Total Bilirubin (0.2-1.3) mg/dL AST (14-36) U/L Alkaline Phosphatase (38-126) U/L Troponin I 0.068 H* (0.000-0.034) ng/mL Total Protein (6.3-8.2) g/dL Albumin (3.5-5.0) g/dL Vitamin D 25-Hydroxy (30.0-100.0) ng/mL 08/20/20 08/20/20 08/20/20 Range/Units 04:45 04:45 04:53 WBC 33.1 H (3.8-10.6) k/uL RBC 3.44 L (3.80-5.40) m/uL Hgb 9.3 L (11.4-16.0) gm/dL Hct 29.4 L (34.0-46.0) % Neutrophils # (1.3-7.7) k/uL Neutrophils # (Manual) 27.10 H (1.3-7.7) k/uL Monocytes # (0-1.0) k/uL Monocytes # (Manual) 1.32 H (0-1.0) k/uL Basophils # (0-0.2) k/uL Myelocytes # (Manual) 0.99 H (0) k/uL Nucleated RBCs 1 H (0-0) /100 WBC APTT (22.0-30.0) sec ABG pH 7.23 L (7.35-7.45) ABG pCO2 51 H (35-45) mmHg ABG pO2 79 L (83-108) mmHg ABG Total CO2 (19-24) mmol/L ABG O2 Saturation (94-97) % Sodium 135 L (137-145) mmol/L Carbon Dioxide 19 L (22-30) mmol/L BUN 59 H (7-17) mg/dL Creatinine 4.58 H (0.52-1.04) mg/dL Glucose 176 H (74-99) mg/dL POC Glucose (mg/dL) (75-99) mg/dL Calcium 6.7 L (8.4-10.2) mg/dL Iron (50-170) ug/dL % Saturation (12.00-45.00) Total Bilirubin 1.6 H (0.2-1.3) mg/dL AST 79 H (14-36) U/L Alkaline Phosphatase 138 H (38-126) U/L Troponin I (0.000-0.034) ng/mL Total Protein 6.1 L (6.3-8.2) g/dL Albumin 2.9 L (3.5-5.0) g/dL Vitamin D 25-Hydroxy (30.0-100.0) ng/mL 08/20/20 08/20/20 Range/Units 05:45 11:41 WBC (3.8-10.6) k/uL RBC (3.80-5.40) m/uL Hgb (11.4-16.0) gm/dL Hct (34.0-46.0) % Neutrophils # (1.3-7.7) k/uL Neutrophils # (Manual) (1.3-7.7) k/uL Monocytes # (0-1.0) k/uL Monocytes # (Manual) (0-1.0) k/uL Basophils # (0-0.2) k/uL Myelocytes # (Manual) (0) k/uL Nucleated RBCs (0-0) /100 WBC APTT (22.0-30.0) sec ABG pH (7.35-7.45) ABG pCO2 (35-45) mmHg ABG pO2 (83-108) mmHg ABG Total CO2 (19-24) mmol/L ABG O2 Saturation (94-97) % Sodium (137-145) mmol/L Carbon Dioxide (22-30) mmol/L BUN (7-17) mg/dL Creatinine (0.52-1.04) mg/dL Glucose (74-99) mg/dL POC Glucose (mg/dL) 180 H 126 H (75-99) mg/dL Calcium (8.4-10.2) mg/dL Iron (50-170) ug/dL % Saturation (12.00-45.00) Total Bilirubin (0.2-1.3) mg/dL AST (14-36) U/L Alkaline Phosphatase (38-126) U/L Troponin I (0.000-0.034) ng/mL Total Protein (6.3-8.2) g/dL Albumin (3.5-5.0) g/dL Vitamin D 25-Hydroxy (30.0-100.0) ng/mL Microbiology - Last 24 Hours (Table) 08/17/20 10:36 Gram Stain - Final Bronchoalviolar Lavage - Left Bronchial Washings Culture - Final 08/15/20 22:19 Blood Culture - Preliminary Blood No Growth after 96 hours
[2020-08-20] MEDS ORDERED: LIDOCAINE 1% INJ 10MG/ML (20 ML MDV) SQ ONE (13:12)
--- NOTE | 2020-08-20 13:52 | XR ---
EXAMINATION TYPE: XR chest 1V portable DATE OF EXAM: 08/20/2020 COMPARISON: 08/20/2020 HISTORY: PICC line placement TECHNIQUE: Single frontal view of the chest is obtained. FINDINGS: PICC line seen overlying the left heart border. ET and NG tube stable. Heart enlarged. Dif fuse interstitial pattern bilateral consolidation and pleural effusion. No pneumothorax. IMPRESSION: 1. Stable diffuse pleural-parenchymal changes. 2. PICC line overlying the left heart border. 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 PICC line in good position.
[2020-08-20 14:13] LABS: Glucose,Whole Blood 149 mg/dL (75-99)
--- NOTE | 2020-08-20 14:41 | IR ---
PICC LINE PLACEMENT: HISTORY: Infection requiring long-term antibiotic therapy PROCEDURE: Ultrasound guidance of PICC line placement. NUCLEAR ENGINEERING TECHNICIAN: Dr. Choudhury. COMPLICATIONS: None ANESTHESIA: 1. 1% Lidocaine locally. FINDINGS/TECHNIQUE: The procedure was explained to the patient. The risks, complications, benefits and alternatives were discussed and any questions were answered. Informed consent was obtained. The patient was placed supine on the fluoroscopic table and prepped and draped in the usual sterile fash ion. Utilizing a 21 gauge needle and sonographic guidance, access in the left basilic vein was achi eved and there is placement of a 0.018 guidewire. The vein is patent. A 5-F. sheath was placed over the guidewire. The guidewire and dilator were removed and a 5-F. Double lumen PICC line was placed through the sheath with the chest x-ray confirming the tip at the level of the SVC. 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 PICC line is therefore in good posi tion. The sheath was removed, the catheter was flushed and sutured into position. The patient was st able throughout the procedure and remained stable upon discharge from the Department of Radiology. The vein puncture was patent under ultrasound. A uriarte scale image was obtained to document patency of the vein punctured. All elements of the maximal barrier technique were utilized. IMPRESSION: 1. Successful PICC line placement under ultrasound performed bedside within the ICU.
--- NOTE | 2020-08-20 16:40 | XR ---
EXAMINATION TYPE: XR chest 1V portable DATE OF EXAM: 08/20/2020 COMPARISON: 08/20/2020 HISTORY: PICC line placement TECHNIQUE: Single frontal view of the chest is obtained. FINDINGS: ET and NG tube stable. Heart is enlarged and there is bilateral consolidation and pleural effusion. No pneumothorax. Biapical pleural thickening. PICC line is seen extending off along the lef t cardiac region. This appears to be within a congenital SVC anomaly as noted and confirmed by CT sca n 03/19/2017 IMPRESSION: 1. Diffuse pleural-parenchymal changes stable. 2. PICC line is in good position despite overlying the left cardiac region. The patient has a documen ollie SVC anomaly which is congenital seen on CT scan 03/19/2017
[2020-08-20] MEDS: AMIODARONE 200 MG TAB PO SCH ×2 (17:16→22:03)
[2020-08-20 17:54] LABS: Glucose,Whole Blood 146 mg/dL (75-99)
[2020-08-20] MEDS ORDERED: propofoL 100 ML IV ONE (17:56)
--- NOTE | 2020-08-20 21:28 | PN ---
PROGRESS NOTE DATE OF SERVICE: 08/20/2020 This 55-year-old woman was admitted with COPD, asthma, acute exacerbation, also had bilateral pneumonia, left more than the right, strep pneumonia has grown from the culture. Covid-19 is negative. The patient also had severe sepsis, multiorgan failure with acute renal failure. The patient is on hemodialysis at this time. The patient also had a PICC line insertion. The patient closely monitored. Patient on mechanical ventilation. The most recent chest x-ray which was reviewed personally by me showed significant infiltrate on the right side also. Dr. Gray and Nephrology following the patient closely. Removed 2 L fluid yesterday. Past medical history reviewed. REVIEW OF SYSTEMS: Could not be taken, the patient mechanically ventilated and sedated. CURRENT MEDICATIONS: Reviewed and include: 1. DuoNeb. 2. Cordarone. 3. Lipitor. 4. Pulmicort. 5. Peridex. 6. NovoLog. 7. Paxil. PHYSICAL EXAM: Patient is on mechanical ventilation. Pulse is 75. Blood pressure is 115/38, respirations 30, temperature normal, pulse ox 93% on mechanical ventilation. HEENT: Conjunctivae normal. NECK: No JVD. CARDIOVASCULAR: S1, S2 muffled. RESPIRATORY: Breath sounds diminished in the bases. Bilateral scattered rhonchi and crackles. ABDOMEN: Soft, obese, nontender. LEGS are no edema. No swelling. NERVOUS SYSTEM: Diffusely weak. LABS: Accu-Cheks 149, 146, otherwise other labs WBC 33.1, hemoglobin 9.3. ABGs noted. Sodium is 135. ASSESSMENT: 1. Chronic obstructive pulmonary disease acute exacerbation, asthma acute exacerbation with bilateral pneumonia with possible sepsis and acute hypoxic respiratory failure, present on admission, on mechanical ventilation. 2. Streptococcus pneumoniae from the sputum culture. 3. Status post bronchoscopy and mucous plugs. 4. Acute renal failure with acute tubular necrosis. 5. Possible multiorgan failure. 6. Severe sepsis with septic shock and secondary to above. 7. Increased WBC. 8. Atrial fibrillation, paroxysmal with fast ventricular rate. 9. Anemia, normocytic. 10.Change in mental status with acute metabolic encephalopathy multifactorial. 11.Thrombocytopenia. 12.Acute respiratory acidosis. 13.Hypokalemia. 14.Hypomagnesemia. 15.Elevated procalcitonin. 16.Elevated plasma lactic acid, possibly secondary to sepsis. 17.History of obstructive sleep apnea. 18.History of obesity. 19.Hypothyroidism. 20.History of bladder surgery. 21.History of anxiety. 22.Obesity with body mass index of 50.8. 23.FULL CODE. RECOMMENDATIONS AND DISCUSSION: Recommend to continue current medications, continue to monitor, symptomatic treatment. Continue with broad-spectrum IV antibiotics, bronchodilators, IV steroids. Continue with antibiotics. Continue with hemodialysis. Repeat labs. Overall prognosis extremely guarded, which I discussed at length with the over the phone and continue to monitor. Closely follow with Dr. Gray. The patient is closely monitored in ICU at this time. Further recommendations to follow. MMODL / IJN: [id number] /
--- NOTE | 2020-08-20 22:00 | PN ---
PROGRESS NOTE DATE OF SERVICE: 08/20/2020 REASON FOR FOLLOWUP: Aspiration pneumonia/strep pneumo. INTERVAL HISTORY: Patient is currently afebrile. The patient is hemodynamically stable. FiO2 is currently at 55%. The patient was undergoing dialysis at the time of my evaluation, with the patient was tolerating. No vomiting or diarrhea reported by nursing staff. PHYSICAL EXAMINATION: Blood pressure 154/83 with a pulse of 80, temperature 98.9. She is 94% on 55% FiO2. General description is a middle-aged female intubated on the vent. Respiratory system: Unlabored breathing, decreased breath sounds in the bases, with no wheeze. Heart S1, S2. Regular rate and rhythm. ABDOMEN: Soft, no tenderness. LABS: Hemoglobin is 9.8, white count 33.1, BUN of 59, creatinine 4.58. Electrolytes are normal. DIAGNOSTIC IMPRESSION AND PLAN: Patient admitted with acute respiratory failure which is multifactorial in this patient who did have a component of pneumonia. Sputum has been strep, pneumo strep with bronchoscopy and those cultures so far negative. Patient is covered with Unasyn, dose adjusted with kidney function. Continue and monitor clinical course closely. MMODL / IJN: [id number] /
[2020-08-20] MEDS: ATORVASTATIN 80 MG TAB PO SCH (22:04)
[2020-08-20] MEDS: AMPICILLIN-SULBACTAM 3 GM in SODIUM CHLORIDE 0.9% 100 ML IVPB SCH (23:42)
[2020-08-20 23:48] LABS: Glucose,Whole Blood 146 mg/dL (75-99)
[2020-08-21] MEDS: INSULIN ASPART (NovoLOG) 100 UNIT/ML VIAL SQ SCH ×4 (00:03→17:51)
[2020-08-21] MEDS: IPRATROPIUM-ALBUTEROL 3 ML NEB INHALATION SCH ×6 (02:55→23:13)
[2020-08-21 04:37] LABS: ABG Base Excess -7.1 mmol/L; ABG HCO3 20 mmol/L (21-25); ABG Oxygen Saturation 96.5 % (94-97); ABG PCO2 46 mmHg (35-45); ABG PH 7.25 (7.35-7.45); ABG PO2 90 mmHg (83-108); ABG TCO2 22 mmol/L (19-24)
[2020-08-21 04:39] LABS: Allen Test Performed? no
[2020-08-21 05:45] LABS: Glucose,Whole Blood 129 mg/dL (75-99)
[2020-08-21] MEDS: LEVOTHYROXINE 100 MCG TAB PO SCH (05:53)
[2020-08-21 05:57] LABS: HGB 8.8 gm/dL (11.4-16.0); MCH 27.1 pg (25.0-35.0); MCHC 32.6 g/dL (31.0-37.0); MCV 83.3 fL (80.0-100.0); Mean Platelet Volume 8.2; Platelet Count 308 k/uL (150-450); RBC 3.24 m/uL (3.80-5.40); RDW 15.4 % (11.5-15.5)
[2020-08-21 06:44] LABS: Albumin 2.9 g/dL (3.5-5.0); Calcium 6.9 mg/dL (8.4-10.2); Potassium 4.4 mmol/L (3.5-5.1); Total Bilirubin 1.6 mg/dL (0.2-1.3); Total Protein 6.4 g/dL (6.3-8.2)
[2020-08-21] MEDS: FORMOTEROL FUMARATE 20 MCG/2 ML NEBU INHALATION SCH ×2 (07:10→19:27)
[2020-08-21] MEDS: BUDESONIDE 1 MG/2 ML NEBU INHALATION SCH ×2 (07:10→19:27)
--- NOTE | 2020-08-21 08:28 | XR ---
EXAMINATION TYPE: XR chest 1V portable DATE OF EXAM: 08/21/2020 COMPARISON: 10/20/2019 HISTORY: Line placement TECHNIQUE: Single frontal view of the chest is obtained. FINDINGS: NG tube stable. ET tube not seen with certainty. Could be positional. A PICC line again no ollie overlying the left heart border within the duplicated SVC and congenital caval anomaly as documen ollie by CT scan. Heart is enlarged and there is bilateral effusion and basilar consolidation. No pneum othorax. Coarsened interstitium. IMPRESSION: 1. Improving right-sided consolidation with stable left-sided consolidation and bilateral pleural eff usions. Correlate for CHF versus improving pneumonia
[2020-08-21] MEDS: HEPARIN SOD,PORK IN 0.45% NACL 25,000 UNIT in 0.45% NACL 1 250ML.BAG IV SCH (09:49)
[2020-08-21] MEDS: PANTOPRAZOLE 40 MG/10 ML VIAL IVP SCH (09:50)
[2020-08-21] MEDS: PARoxetine 20 MG TAB PO SCH (09:50)
[2020-08-21] MEDS: ASPIRIN 81 MG PO SCH (09:50)
[2020-08-21] MEDS: ERGOCALCIFEROL 50,000 UNIT CAP PO SCH (09:50)
[2020-08-21] MEDS: AMIODARONE 200 MG TAB PO SCH ×2 (09:50→21:40)
[2020-08-21] MEDS: CHLORHEXIDINE GLUCONATE 15 ML CUP MUCOUS MEM SCH ×2 (09:50→21:41)
[2020-08-21] MEDS: SODIUM CHLORIDE 0.9% 1,000 ML IV SCH (09:51)
[2020-08-21 11:42] LABS: Glucose,Whole Blood 133 mg/dL (75-99)
--- NOTE | 2020-08-21 11:49 | PN ---
PROGRESS NOTE PULMONARY/CRITICAL CARE PROGRESS NOTE: DATE OF SERVICE: August 21, 2020 Critical care time 33 minutes HISTORY: This is a 55-year-old female admitted on August 16. She came with sepsis. She was intubated on the for hypoxemic respiratory failure, self-extubated herself on the same day and was reintubated on the same day. She remains on mechanical ventilator. She has not made much progress towards weaning and extubation. She was previously on the volume assist-control mode rate of 36, tidal volume 350, FiO2 55%, PEEP of 16. On those settings, we do notice some ventilator asynchrony. We switched her to the pressure regulated volume control modality or VC plus mode. She has a targeted tidal volume of 350 and an inspiratory time of 0.9 seconds. Gases on the prior settings show pO2 of 90 pCO2 46 and a pH of 7.25. The patient is getting hemodialysis today. They are hoping to remove 3.5 L. The PICC line was placed yesterday. The femoral triple- lumen catheter was removed. She is currently on propofol at 75 mics per kg per minute and heparin via weight based protocol and Vital high-protein at 12 which is goal. She is on it for paralysis since she has been off fentanyl. We are going to add back some Dilaudid 1 mg IV q hour as needed. PHYSICAL EXAMINATION: VITAL SIGNS: Current vital signs are reviewed. Temperature is 97.8, heart rate 71, respiratory rate 36-37 breaths per minute. Blood pressure 113/64, saturations 95%. GENERAL: Appears in no acute distress. HEENT: Examination is grossly unremarkable. There is an orally placed endotracheal tube and NG tube. NECK: Supple. Full range of motion. No adenopathy. Neck veins are flat. CARDIOVASCULAR: Examination reveals regular rhythm and rate. S1, S2 normal. No S3, S4, or murmur. Heart sounds are distant. Heart rate 73. LUNGS: Reveal diffuse coarse rhonchi. Breath sounds equal. ABDOMEN: Obese. Bowel sounds are heard. EXTREMITIES are intact. There is some slight edema. SKIN: Without rash. NEUROLOGIC: Examination is difficult to assess. LABS: Reviewed. White count 27.6, hemoglobin 8.8, hematocrit 27.0, platelet count 308,000. Sodium 133, potassium 4.4, chloride 98, CO2 19, anion gap is 16. BUN and creatinine were 60 and 4.70. Microbiology showing strep pneumoniae in the sputum. Chest x-ray shows improving right-sided consolidation and stable left-sided consolidation with bilateral pleural effusions. CURRENT MEDICATIONS: Reviewed. Currently, she is on Cordarone, Unasyn, aspirin, Lipitor, Pulmicort, chlorhexidine, vitamin D2, IV heparin, Dilaudid p.r.n., insulin, DuoNeb, levothyroxine, morphine, Narcan p.r.n., Protonix, Paxil, propofol and saline. ASSESSMENT: 1. Acute hypoxemic hypercapnic respiratory failure, secondary to left lower lobe pneumonia with sepsis, status post intubation on August 16, 2020. 2. Status post bronchoscopy, August 17, 2020. 3. Sepsis with septic shock secondary to left lower lobe pneumonia, caused by Streptococcus pneumoniae. 4. Lactic acidemia. 5. Anion gap metabolic acidosis. 6. Acute kidney injury. 7. Acute exacerbation of asthma. 8. Sleep apnea syndrome. 9. Pickwickian syndrome. 10.Type 2 diabetes mellitus. 11.History of depression/anxiety. 12.Negative COVID-19 testing. 13.Hypothyroidism. PLAN: Currently, we have added Dilaudid back to her regimen. We will try different ventilator modalities. We switched from volume assist-control to pressure regulated volume control or VC plus. We will send a targeted tidal volume at 350 and inspiratory time of 0.9 seconds. She remains on propofol at 75 mics per kg per minute and heparin via weight based protocol. Fentanyl and Nimbex are off. She is getting tube feeds at goal. Prognosis is very poor. We will continue to follow. She may in the end need a tracheostomy and PEG tube placement. Critical care time 33 minutes. MMODL / IJN: [id number] /
--- NOTE | 2020-08-21 11:55 | PN ---
PROGRESS NOTE Patient is seen for followup for acute kidney injury, oliguric ATN associated with sepsis hypotension. The patient has been started on dialysis. Today she is having her third treatment. The patient is massively volume overloaded. She is maintained on the vent with high PEEP of 16 and FiO2 currently at 60. Levophed has now been discontinued and patient was able to tolerate dialysis yesterday without any pressors. We were able to get about 4 L over the last couple of days and today the plan is for about 3 L of ultrafiltration. Patient continues to have no urine output. She is maintained on IV heparin for atrial fibrillation, which is now with controlled ventricular response. The patient is also maintained on propofol. PHYSICAL EXAMINATION: Today patient is on the vent. She is sedated. Blood pressure 113/64, heart rate 73 per minute. She is afebrile. She is seen on hemodialysis, tolerating her treatment fairly okay. Examination shows significant edema bilateral lower extremities. ABDOMEN: Soft, obese with abdominal wall edema. Bilateral breath sounds are heard. Patient is on the vent. CONSUMER RECRUITER exam cannot be performed. She is tolerating tube feeds. LABS: Show sodium 133, potassium 4.4, chloride 98, CO2 is 19, BUN 68, serum creatinine 4.7, hemoglobin 8.8 g/dL. ASSESSMENT: 1. Acute kidney injury, acute tubular necrosis, currently oliguric secondary to sepsis hypotension, started on hemodialysis. Patient is having her third treatment today. We are planning for about 3 L of ultrafiltration today. If we are able to get that she would have had about 7 L of fluid removed over the last 3 days. We will continue to maintain her on a daily dialysis schedule for now. 2. Volume overload, slowly improving. No urine output. Continue daily dialysis for now. 3. Hypoxic respiratory failure secondary to pneumonia and volume overload. 4. Streptococcus pneumonia currently on the vent requiring high amounts of oxygen and PEEP. 5. Metabolic acidosis, improving with dialysis. 6. Hypotension secondary to sepsis, currently off pressors. PLAN: Continue to maintain patient on daily dialysis and ultrafiltration. Avoid nephrotoxic agents. MMODL / IJN: [id number] /
--- NOTE | 2020-08-21 11:56 | P.PN ---
Subjective Progress Note Date: 08/21/20 Principal diagnosis: Paroxysmal atrial fibrillation This is a 55-year-old female patient was morbid obesity as well as multiple comorbid conditions who was admitted to the hospital with acute hypoxic respiratory failure secondary to pneumonia and she was intubated and placed on mechanical ventilation. We requested to see the patient for further evaluation off tachycardia episode consistent with atrial fibrillation. The patient was seen this morning. She continues to be intubated on mechanical ventilation. Hemodynamically she is a stable and not requiring any vasopresso rs. She has been maintaining normal sinus mechanism. She is on amiodarone by mouth. Also she is on heparin IV. We will consider oral anticoagulation was noted that the patient is not in process of having any further surgical procedure. Otherwise we will continue the current medical regimen. Please note that the echocardiogram revealed cardiomyopathy. Also the patient has been dialysis every day. Objective - Vital Signs Vital signs: Vital Signs Temp 97.8 F 08/21/20 04:00 Pulse 75 08/21/20 11:30 Resp 37 H 08/21/20 07:00 BP 118/73 08/21/20 03:00 Pulse Ox 95 08/21/20 07:00 Intake & Output 08/20/20 08/21/20 08/21/20 18:59 06:59 18:59 Intake Total 207.301 6339.366 128 Output Total 2030 110 10 Balance -6024.331 8634.366 118 Weight 163.2 kg 163.2 kg Intake: IV 336 330 28 0.9 300 300 25 Pressure Bag 36 30 3 Intake, IV Titration 470.706 743.366 100 Amount Amiodarone 360 mg In 200 Dextrose 5% in Water 200 ml @ 1 MG/MIN 33.333 mls/ hr IV .Q6H [facility] Rx#: [id number] Heparin Sod,Pork in 0.45% 170.706 249.753 NaCl 25,000 unit In 0.45 % NaCl 1 250ml.bag @ 6.18 UNITS/KG/HR 9.993 mls/hr IV .Q24H [facility] Rx#: [id number] propofoL 1,000 mg In 100 493.613 100 Empty Bag 1 bag @ Titrate IV .Q0M [facility] Rx#: [id number] Tube Feeding 36 120 Other 60 Output: Urine 30 110 10 Hemodialysis 1999 Other: Voiding Method Indwelling Catheter Indwelling Catheter ABP, PAP, CO, CI - Last Documented Arterial Blood Pressure 113/64 - Constitutional General appearance: Present: no acute distress - Respiratory Respiratory: bilateral: diminished - Cardiovascular Rhythm: regular Heart sounds: normal: S1, S2 Abnormal Heart Sounds: Present: systolic murmur - Labs CBC & Chem 7: 08/21/20 05:40 08/21/20 05:40 Labs: Abnormal Lab Results - Last 24 Hours (Table) 08/20/20 08/20/20 08/20/20 Range/Units 12:40 14:12 17:52 WBC (3.8-10.6) k/uL RBC (3.80-5.40) m/uL Hgb (11.4-16.0) gm/dL Hct (34.0-46.0) % APTT 30.4 H (22.0-30.0) sec ABG pH (7.35-7.45) ABG pCO2 (35-45) mmHg ABG HCO3 (21-25) mmol/L Sodium (137-145) mmol/L Carbon Dioxide (22-30) mmol/L BUN (7-17) mg/dL Creatinine (0.52-1.04) mg/dL Glucose (74-99) mg/dL POC Glucose (mg/dL) 149 H 146 H (75-99) mg/dL Calcium (8.4-10.2) mg/dL Total Bilirubin (0.2-1.3) mg/dL AST (14-36) U/L Alkaline Phosphatase (38-126) U/L Albumin (3.5-5.0) g/dL 08/20/20 08/21/20 08/21/20 Range/Units 23:47 01:33 04:36 WBC (3.8-10.6) k/uL RBC (3.80-5.40) m/uL Hgb (11.4-16.0) gm/dL Hct (34.0-46.0) % APTT 49.3 H (22.0-30.0) sec ABG pH 7.25 L (7.35-7.45) ABG pCO2 46 H (35-45) mmHg ABG HCO3 20 L (21-25) mmol/L Sodium (137-145) mmol/L Carbon Dioxide (22-30) mmol/L BUN (7-17) mg/dL Creatinine (0.52-1.04) mg/dL Glucose (74-99) mg/dL POC Glucose (mg/dL) 146 H (75-99) mg/dL Calcium (8.4-10.2) mg/dL Total Bilirubin (0.2-1.3) mg/dL AST (14-36) U/L Alkaline Phosphatase (38-126) U/L Albumin (3.5-5.0) g/dL 08/21/20 08/21/20 08/21/20 Range/Units 05:40 05:40 05:40 WBC 27.6 H (3.8-10.6) k/uL RBC 3.24 L (3.80-5.40) m/uL Hgb 8.8 L (11.4-16.0) gm/dL Hct 27.0 L (34.0-46.0) % APTT 47.2 H (22.0-30.0) sec ABG pH (7.35-7.45) ABG pCO2 (35-45) mmHg ABG HCO3 (21-25) mmol/L Sodium 133 L (137-145) mmol/L Carbon Dioxide 19 L (22-30) mmol/L BUN 68 H (7-17) mg/dL Creatinine 4.70 H (0.52-1.04) mg/dL Glucose 121 H (74-99) mg/dL POC Glucose (mg/dL) (75-99) mg/dL Calcium 6.9 L (8.4-10.2) mg/dL Total Bilirubin 1.6 H (0.2-1.3) mg/dL AST 68 H (14-36) U/L Alkaline Phosphatase 187 H (38-126) U/L Albumin 2.9 L (3.5-5.0) g/dL 08/21/20 08/21/20 Range/Units 05:43 11:40 WBC (3.8-10.6) k/uL RBC (3.80-5.40) m/uL Hgb (11.4-16.0) gm/dL Hct (34.0-46.0) % APTT (22.0-30.0) sec ABG pH (7.35-7.45) ABG pCO2 (35-45) mmHg ABG HCO3 (21-25) mmol/L Sodium (137-145) mmol/L Carbon Dioxide (22-30) mmol/L BUN (7-17) mg/dL Creatinine (0.52-1.04) mg/dL Glucose (74-99) mg/dL POC Glucose (mg/dL) 129 H 133 H (75-99) mg/dL Calcium (8.4-10.2) mg/dL Total Bilirubin (0.2-1.3) mg/dL AST (14-36) U/L Alkaline Phosphatase (38-126) U/L Albumin (3.5-5.0) g/dL Microbiology - Last 24 Hours (Table) 08/15/20 22:19 Blood Culture - Preliminary Blood No Growth after 120 hours 08/17/20 10:36 Gram Stain - Final Bronchoalviolar Lavage - Left Bronchial Washings Culture - Final Assessment and Plan Assessment: Assessment Acute hypoxic respiratory failure Pneumonia/sepsis Paroxysmal atrial fibrillation Multiple comorbid conditions Plan #1 continue the current dose of amiodarone by mouth #2 continue anticoagulation was heparin #3 consider oral anticoagulation down the line #4 follow-up with the patient
[2020-08-21 12:21] LABS: Band Neutrophils % 11 %; Lymphocytes # (M) 2.18 k/uL (1.0-4.8); Metamyelocytes # (M) 0.82 k/uL (0); Metamyelocytes % 3 %; Monocytes # (M) 1.37 k/uL (0-1.0); Myelocytes # (M) 0.27 k/uL (0); Myelocytes % 1 %; Neutrophils % (M) 74 %; Nucleated Red Blood Cells 1 /100 WBC (0-0); Total Cells Counted 200; WBC 27.3 k/uL (3.8-10.6)
[2020-08-21 12:22] LABS: Toxic Granulation Present
[2020-08-21 12:23] LABS: Anisocytosis (M) Present; Poikilocytosis (M) Present
[2020-08-21] MEDS: HYDROmorphone 1 MG/ML 1 ML SYRINGE IVP PRN (12:51)
--- NOTE | 2020-08-21 16:57 | P.PN ---
Subjective Progress Note Date: 08/21/20 55-year-old female patient was morbid obesity as well as multiple comorbid conditions who was admitted to the hospital with acute hypoxic respiratory failure secondary to pneumonia and she was intubated and placed on mechanical ventilation. Cardiology consulted to see the patient for further evaluation off tachycardia episode consistent with atrial fibrillation. The patient was seen this morning. She continues to be intubated on mechanical ventilation. Hemodynamically she is a stable and not requiring any vasopressors. She has been maintaining normal sinus mechanism. She is on amiodarone by mouth. Also she is on heparin IV. We will consider oral anticoagulation was noted that the patient is not in process of having any further surgical procedure. Otherwise we will continue the current medical regimen. Please note that the echocardiogram revealed cardiomyopathy. Also the patient has been dialysis every day. Objective - Vital Signs Vital signs: Vital Signs Temp 97.8 F 08/21/20 04:00 Pulse 71 08/21/20 07:31 Resp 37 H 08/21/20 07:00 BP 118/73 08/21/20 03:00 Pulse Ox 95 08/21/20 07:00 Intake & Output 08/20/20 08/21/20 08/21/20 18:59 06:59 18:59 Intake Total 740.397 2355.366 128 Output Total 2030 110 10 Balance -8280.633 2825.366 118 Weight 163.2 kg Intake: IV 336 330 28 0.9 300 300 25 Pressure Bag 36 30 3 Intake, IV Titration 470.706 743.366 100 Amount Amiodarone 360 mg In 200 Dextrose 5% in Water 200 ml @ 1 MG/MIN 33.333 mls/ hr IV .Q6H [facility] Rx#: [id number] Heparin Sod,Pork in 0.45% 170.706 249.753 NaCl 25,000 unit In 0.45 % NaCl 1 250ml.bag @ 6.18 UNITS/KG/HR 9.993 mls/hr IV .Q24H [facility] Rx#: [id number] propofoL 1,000 mg In 100 493.613 100 Empty Bag 1 bag @ Titrate IV .Q0M [facility] Rx#: [id number] Tube Feeding 36 120 Other 60 Output: Urine 30 110 10 Hemodialysis 1999 Other: Voiding Method Indwelling Catheter Indwelling Catheter ABP, PAP, CO, CI - Last Documented Arterial Blood Pressure 113/64 - Exam GENERAL: Well-developed in no acute distress. HEENT: Head is normocephalic. Pupils are equal, round. Sclerae anicteric. Mucous membranes of the mouth are moist. Neck supple. No JVD or thyromegaly LUNGS: Respirations even and unlabored. Lungs diminished. HEART: Regular rate and rhythm. S1 and S2 heard. ABDOMEN: Soft. Nondistended. Nontender. EXTREMITIES: Normal range of motion. No clubbing or cyanosis. Peripheral pulses intact. No lower extremity edema NEUROLOGIC: Sedated on mechanical ventilation - Labs CBC & Chem 7: 08/21/20 05:40 08/21/20 05:40 Labs: Abnormal Lab Results - Last 24 Hours (Table) 08/20/20 08/20/20 08/20/20 Range/Units 11:41 12:40 14:12 WBC (3.8-10.6) k/uL RBC (3.80-5.40) m/uL Hgb (11.4-16.0) gm/dL Hct (34.0-46.0) % APTT 30.4 H (22.0-30.0) sec ABG pH (7.35-7.45) ABG pCO2 (35-45) mmHg ABG HCO3 (21-25) mmol/L Sodium (137-145) mmol/L Carbon Dioxide (22-30) mmol/L BUN (7-17) mg/dL Creatinine (0.52-1.04) mg/dL Glucose (74-99) mg/dL POC Glucose (mg/dL) 126 H 149 H (75-99) mg/dL Calcium (8.4-10.2) mg/dL Total Bilirubin (0.2-1.3) mg/dL AST (14-36) U/L Alkaline Phosphatase (38-126) U/L Albumin (3.5-5.0) g/dL 08/20/20 08/20/20 08/21/20 Range/Units 17:52 23:47 01:33 WBC (3.8-10.6) k/uL RBC (3.80-5.40) m/uL Hgb (11.4-16.0) gm/dL Hct (34.0-46.0) % APTT 49.3 H (22.0-30.0) sec ABG pH (7.35-7.45) ABG pCO2 (35-45) mmHg ABG HCO3 (21-25) mmol/L Sodium (137-145) mmol/L Carbon Dioxide (22-30) mmol/L BUN (7-17) mg/dL Creatinine (0.52-1.04) mg/dL Glucose (74-99) mg/dL POC Glucose (mg/dL) 146 H 146 H (75-99) mg/dL Calcium (8.4-10.2) mg/dL Total Bilirubin (0.2-1.3) mg/dL AST (14-36) U/L Alkaline Phosphatase (38-126) U/L Albumin (3.5-5.0) g/dL 08/21/20 08/21/20 08/21/20 Range/Units 04:36 05:40 05:40 WBC 27.6 H (3.8-10.6) k/uL RBC 3.24 L (3.80-5.40) m/uL Hgb 8.8 L (11.4-16.0) gm/dL Hct 27.0 L (34.0-46.0) % APTT (22.0-30.0) sec ABG pH 7.25 L (7.35-7.45) ABG pCO2 46 H (35-45) mmHg ABG HCO3 20 L (21-25) mmol/L Sodium 133 L (137-145) mmol/L Carbon Dioxide 19 L (22-30) mmol/L BUN 68 H (7-17) mg/dL Creatinine 4.70 H (0.52-1.04) mg/dL Glucose 121 H (74-99) mg/dL POC Glucose (mg/dL) (75-99) mg/dL Calcium 6.9 L (8.4-10.2) mg/dL Total Bilirubin 1.6 H (0.2-1.3) mg/dL AST 68 H (14-36) U/L Alkaline Phosphatase 187 H (38-126) U/L Albumin 2.9 L (3.5-5.0) g/dL 08/21/20 08/21/20 Range/Units 05:40 05:43 WBC (3.8-10.6) k/uL RBC (3.80-5.40) m/uL Hgb (11.4-16.0) gm/dL Hct (34.0-46.0) % APTT 47.2 H (22.0-30.0) sec ABG pH (7.35-7.45) ABG pCO2 (35-45) mmHg ABG HCO3 (21-25) mmol/L Sodium (137-145) mmol/L Carbon Dioxide (22-30) mmol/L BUN (7-17) mg/dL Creatinine (0.52-1.04) mg/dL Glucose (74-99) mg/dL POC Glucose (mg/dL) 129 H (75-99) mg/dL Calcium (8.4-10.2) mg/dL Total Bilirubin (0.2-1.3) mg/dL AST (14-36) U/L Alkaline Phosphatase (38-126) U/L Albumin (3.5-5.0) g/dL Microbiology - Last 24 Hours (Table) 08/15/20 22:19 Blood Culture - Preliminary Blood No Growth after 120 hours 08/17/20 10:36 Gram Stain - Final Bronchoalviolar Lavage - Left Bronchial Washings Culture - Final Assessment and Plan Assessment: 1. Acute hypoxic respiratory failure requiring mechanical ventilation secondary to pneumonia 2. Sepsis, secondary to pneumonia 3. Paroxysmal atrial fibrillation with RVR 4. Cardiomyopathy, unknown if ischemic or nonischemic, EF 30-35% 5. Abnormal troponins, possible NSTEMI, may be secondary to hypoxia, sepsis, and /or afib with RVR, however can not rule out underlying coronary artery disease 6. Severe pulmonary hypertension 7. Acute kidney injury 8. Hypotension requiring vasopressor support 9. History of asthma 10. Hypothyroidism PLAN: Continue ventilator management per critical care Continue dialysis per nephrology Continue aspirin and atorvastatin Continue IV heparin Transition IV amiodarone to oral dosing Will hold off on beta ada secondary to history of asthma. Further recommendations pending patient's course
[2020-08-21 17:49] LABS: Glucose,Whole Blood 118 mg/dL (75-99)
[2020-08-21] MEDS: ATORVASTATIN 80 MG TAB PO SCH (21:40)
--- NOTE | 2020-08-21 22:18 | PN ---
PROGRESS NOTE DATE OF SERVICE: 08/21/2020 REASON FOR FOLLOW UP: Strep pneumo/aspiration pneumonia. INTERVAL HISTORY: Patient is currently afebrile. The patient is hemodynamically stable, not on pressor support. The patient remains to be intubated on the vent. FiO2 is currently stable at 50%. Tolerating her tube feeds. No diarrhea reported and no significant purulent secretion through the ET. PHYSICAL EXAMINATION: Blood pressure is 116/63 with a pulse of 72, temperature 98, she is 94% on 50% FIO2. General description is a middle-aged female intubated on the vent. Respiratory system: Unlabored breathing, decreased breath sounds at the base, no wheeze. Heart S1, S2. Regular rate and rhythm. Abdomen soft, no tenderness. LABS: White count 27.3, BUN of 68, creatinine 4.70. Bronchoscopy culture so far negative. IMPRESSION/PLAN: Patient with acute respiratory failure which is multifactorial. This patient did have a component of strep pneumonia possible aspiration etiology. Covered with Unasyn. Elevated white count more likely steroid effect. Continue supportive care. MMODL / IJN: [id number] /
[2020-08-21] MEDS: AMPICILLIN-SULBACTAM 3 GM in SODIUM CHLORIDE 0.9% 100 ML IVPB SCH (23:50)
[2020-08-21 23:58] LABS: Glucose,Whole Blood 127 mg/dL (75-99)
[2020-08-22] MEDS: INSULIN ASPART (NovoLOG) 100 UNIT/ML VIAL SQ SCH ×4 (00:18→16:52)
[2020-08-22] MEDS: IPRATROPIUM-ALBUTEROL 3 ML NEB INHALATION SCH ×6 (03:15→23:03)
[2020-08-22] MEDS: HYDROmorphone 1 MG/ML 1 ML SYRINGE IVP PRN ×3 (04:22→11:59)
[2020-08-22 05:18] LABS: HCT 26.4 % (34.0-46.0); HGB 8.6 gm/dL (11.4-16.0); MCH 27.1 pg (25.0-35.0); MCHC 32.8 g/dL (31.0-37.0); MCV 82.7 fL (80.0-100.0); Mean Platelet Volume 7.6; Platelet Count 313 k/uL (150-450); RBC 3.19 m/uL (3.80-5.40); RDW 15.4 % (11.5-15.5)
[2020-08-22 05:56] LABS: Glucose,Whole Blood 121 mg/dL (75-99)
[2020-08-22 05:58] LABS: Band Neutrophils % 22 %; Eosinophils # (M) 0.77 k/uL (0-0.7); Lymphocytes # (M) 1.93 k/uL (1.0-4.8); Metamyelocytes # (M) 1.16 k/uL (0); Metamyelocytes % 3 %; Monocytes # (M) 1.54 k/uL (0-1.0); Myelocytes # (M) 0.39 k/uL (0); Myelocytes % 1 %; Neutrophils % (M) 63 %; Nucleated Red Blood Cells 1 /100 WBC (0-0); Total Cells Counted 200; WBC 38.5 k/uL (3.8-10.6)
[2020-08-22 05:59] LABS: Toxic Granulation Present
[2020-08-22 06:06] LABS: Albumin 2.9 g/dL (3.5-5.0); Potassium 4.3 mmol/L (3.5-5.1); Total Bilirubin 1.9 mg/dL (0.2-1.3); Total Protein 6.4 g/dL (6.3-8.2)
[2020-08-22 06:22] LABS: ABG Base Excess -7.6 mmol/L; ABG HCO3 20 mmol/L (21-25); ABG Oxygen Saturation 98.6 % (94-97); ABG PCO2 48 mmHg (35-45); ABG PH 7.23 (7.35-7.45); ABG PO2 118 mmHg (83-108); ABG TCO2 22 mmol/L (19-24); Allen Test Performed? Yes
[2020-08-22] MEDS: LEVOTHYROXINE 100 MCG TAB PO SCH (06:23)
--- NOTE | 2020-08-22 07:05 | P.PN ---
Subjective Progress Note Date: 08/22/20 Principal diagnosis: Paroxysmal atrial fibrillation This is a 55-year-old female patient was morbid obesity as well as multiple comorbid conditions who was admitted to the hospital with acute hypoxic respiratory failure secondary to pneumonia and she was intubated and placed on mechanical ventilation. We requested to see the patient for further evaluation off tachycardia episode consistent with atrial fibrillation. The patient was seen today. She remains intubated on mechanical ventilation be hemodynamically she remained stable and not on any vasopressors. She has been maintaining normal sinus mechanism. Currently she is on amiodarone by mouth and also she is on heparin IV. She did have some nosebleed yesterday and I asked to decrease the dose of heparin to low intensity. We will consider oral anticoagulation once we know that the patient is not point to undergo any surgical intervention. She remains on dialysis every day and nephrology service is on the case. Objective - Vital Signs Vital signs: Vital Signs Temp 98.8 F 08/22/20 04:00 Pulse 77 08/22/20 07:00 Resp 29 H 08/22/20 07:00 BP 118/73 08/21/20 18:00 Pulse Ox 95 08/22/20 07:00 Intake & Output 08/21/20 08/22/20 08/22/20 18:59 06:59 18:59 Intake Total 617 980 35 Output Total 6405 78 10 Balance -5788 902 25 Weight 163.2 kg 163.2 kg Intake: IV 281 458 23 0.9 245 422 20 Pressure Bag 36 36 3 Intake, IV Titration 300 300 Amount propofoL 1,000 mg In 300 300 Empty Bag 1 bag @ Titrate IV .Q0M [facility] Rx#: [id number] Tube Feeding 36 132 12 Other 90 Output: Urine 105 78 10 Hemodialysis 3300 Other 3000 Other: Voiding Method Indwelling Catheter Indwelling Catheter ABP, PAP, CO, CI - Last Documented Arterial Blood Pressure 113/58 - Constitutional General appearance: Present: no acute distress - Respiratory Respiratory: bilateral: diminished - Cardiovascular Rhythm: regular Heart sounds: normal: S1, S2 - Labs CBC & Chem 7: 08/22/20 04:28 08/22/20 04:28 Labs: Abnormal Lab Results - Last 24 Hours (Table) 08/21/20 08/21/20 08/21/20 Range/Units 05:40 05:40 11:40 WBC 27.3 H (3.8-10.6) k/uL RBC (3.80-5.40) m/uL Hgb (11.4-16.0) gm/dL Hct (34.0-46.0) % Neutrophils # (Manual) 23.20 H (1.3-7.7) k/uL Monocytes # (Manual) 1.37 H (0-1.0) k/uL Eosinophils # (Manual) (0-0.7) k/uL Metamyelocytes # (Man) 0.82 H (0) k/uL Myelocytes # (Manual) 0.27 H (0) k/uL Nucleated RBCs 1 H (0-0) /100 WBC APTT (22.0-30.0) sec ABG pH (7.35-7.45) ABG pCO2 (35-45) mmHg ABG pO2 (83-108) mmHg ABG HCO3 (21-25) mmol/L ABG O2 Saturation (94-97) % Sodium 133 L (137-145) mmol/L Chloride (98-107) mmol/L Carbon Dioxide 19 L (22-30) mmol/L BUN 68 H (7-17) mg/dL Creatinine 4.70 H (0.52-1.04) mg/dL Glucose 121 H (74-99) mg/dL POC Glucose (mg/dL) 133 H (75-99) mg/dL Calcium 6.9 L (8.4-10.2) mg/dL Total Bilirubin 1.6 H (0.2-1.3) mg/dL AST 68 H (14-36) U/L Alkaline Phosphatase 187 H (38-126) U/L Albumin 2.9 L (3.5-5.0) g/dL 08/21/20 08/21/20 08/22/20 Range/Units 17:48 23:54 04:28 WBC 38.5 H (3.8-10.6) k/uL RBC 3.19 L (3.80-5.40) m/uL Hgb 8.6 L (11.4-16.0) gm/dL Hct 26.4 L (34.0-46.0) % Neutrophils # (Manual) 32.70 H (1.3-7.7) k/uL Monocytes # (Manual) 1.54 H (0-1.0) k/uL Eosinophils # (Manual) 0.77 H (0-0.7) k/uL Metamyelocytes # (Man) 1.16 H (0) k/uL Myelocytes # (Manual) 0.39 H (0) k/uL Nucleated RBCs 1 H (0-0) /100 WBC APTT (22.0-30.0) sec ABG pH (7.35-7.45) ABG pCO2 (35-45) mmHg ABG pO2 (83-108) mmHg ABG HCO3 (21-25) mmol/L ABG O2 Saturation (94-97) % Sodium (137-145) mmol/L Chloride (98-107) mmol/L Carbon Dioxide (22-30) mmol/L BUN (7-17) mg/dL Creatinine (0.52-1.04) mg/dL Glucose (74-99) mg/dL POC Glucose (mg/dL) 118 H 127 H (75-99) mg/dL Calcium (8.4-10.2) mg/dL Total Bilirubin (0.2-1.3) mg/dL AST (14-36) U/L Alkaline Phosphatase (38-126) U/L Albumin (3.5-5.0) g/dL 08/22/20 08/22/20 08/22/20 Range/Units 04:28 04:28 05:55 WBC (3.8-10.6) k/uL RBC (3.80-5.40) m/uL Hgb (11.4-16.0) gm/dL Hct (34.0-46.0) % Neutrophils # (Manual) (1.3-7.7) k/uL Monocytes # (Manual) (0-1.0) k/uL Eosinophils # (Manual) (0-0.7) k/uL Metamyelocytes # (Man) (0) k/uL Myelocytes # (Manual) (0) k/uL Nucleated RBCs (0-0) /100 WBC APTT 51.2 H (22.0-30.0) sec ABG pH (7.35-7.45) ABG pCO2 (35-45) mmHg ABG pO2 (83-108) mmHg ABG HCO3 (21-25) mmol/L ABG O2 Saturation (94-97) % Sodium 131 L (137-145) mmol/L Chloride 97 L (98-107) mmol/L Carbon Dioxide 20 L (22-30) mmol/L BUN 63 H (7-17) mg/dL Creatinine 4.25 H (0.52-1.04) mg/dL Glucose 107 H (74-99) mg/dL POC Glucose (mg/dL) 121 H (75-99) mg/dL Calcium 7.0 L (8.4-10.2) mg/dL Total Bilirubin 1.9 H (0.2-1.3) mg/dL AST 79 H (14-36) U/L Alkaline Phosphatase 179 H (38-126) U/L Albumin 2.9 L (3.5-5.0) g/dL 08/22/20 Range/Units 06:19 WBC (3.8-10.6) k/uL RBC (3.80-5.40) m/uL Hgb (11.4-16.0) gm/dL Hct (34.0-46.0) % Neutrophils # (Manual) (1.3-7.7) k/uL Monocytes # (Manual) (0-1.0) k/uL Eosinophils # (Manual) (0-0.7) k/uL Metamyelocytes # (Man) (0) k/uL Myelocytes # (Manual) (0) k/uL Nucleated RBCs (0-0) /100 WBC APTT (22.0-30.0) sec ABG pH 7.23 L (7.35-7.45) ABG pCO2 48 H (35-45) mmHg ABG pO2 118 H (83-108) mmHg ABG HCO3 20 L (21-25) mmol/L ABG O2 Saturation 98.6 H (94-97) % Sodium (137-145) mmol/L Chloride (98-107) mmol/L Carbon Dioxide (22-30) mmol/L BUN (7-17) mg/dL Creatinine (0.52-1.04) mg/dL Glucose (74-99) mg/dL POC Glucose (mg/dL) (75-99) mg/dL Calcium (8.4-10.2) mg/dL Total Bilirubin (0.2-1.3) mg/dL AST (14-36) U/L Alkaline Phosphatase (38-126) U/L Albumin (3.5-5.0) g/dL Microbiology - Last 24 Hours (Table) 08/15/20 22:19 Blood Culture - Final Blood No Growth after 144 hours Assessment and Plan Assessment: Assessment Acute hypoxic respiratory failure Pneumonia/sepsis Paroxysmal atrial fibrillation Multiple comorbid conditions Plan #1 continue the current dose of amiodarone by mouth #2 continue anticoagulation was heparin #3 consider oral anticoagulation down the line #4 follow-up with the patient
[2020-08-22] MEDS: BUDESONIDE 1 MG/2 ML NEBU INHALATION SCH ×2 (07:31→19:17)
[2020-08-22] MEDS: FORMOTEROL FUMARATE 20 MCG/2 ML NEBU INHALATION SCH ×2 (07:31→19:17)
[2020-08-22] MEDS: PANTOPRAZOLE 40 MG/10 ML VIAL IVP SCH (08:29)
[2020-08-22] MEDS: CHLORHEXIDINE GLUCONATE 15 ML CUP MUCOUS MEM SCH ×2 (08:29→20:27)
[2020-08-22] MEDS: ERGOCALCIFEROL 50,000 UNIT CAP PO SCH (08:30)
[2020-08-22] MEDS: ASPIRIN 81 MG PO SCH (08:30)
[2020-08-22] MEDS: PARoxetine 20 MG TAB PO SCH (08:30)
[2020-08-22] MEDS: AMIODARONE 200 MG TAB PO SCH ×2 (08:30→20:27)
--- NOTE | 2020-08-22 08:44 | XR ---
EXAMINATION TYPE: XR chest 1V portable DATE OF EXAM: 08/22/2020 COMPARISON: Prior chest x-ray 08/21/2020 HISTORY: Intubated TECHNIQUE: Single frontal view of the chest is obtained. FINDINGS: Endotracheal tube, NG tube, left-sided PICC line are overlying appropriate positions, dupl icated superior vena cava noted. The left hemidiaphragm is obscured. Heart is likely stable. No evide nt pneumothorax. IMPRESSION: Correlate for pneumonia, atelectasis, difficult to exclude a pleural effusion. Rotated e xam.
--- NOTE | 2020-08-22 11:58 | P.PN ---
Subjective Progress Note Date: 08/22/20 Principal diagnosis: This is a 55-year-old female seen in consultation with acute kidney injury from pneumococcal pneumonia, on the vent and has been on dialysis now and just compl eted her third dialysis today. She is on the vent or 50% FiO2 not on any inotropes. Blood pressure is maintained. Urine output is small. She is known with diabetes, obstructive sleep apnea, hypothyroidism. She is somewhat obese Objective - Vital Signs Vital signs: Vital Signs Temp 98.7 F 08/22/20 08:00 Pulse 71 08/22/20 11:30 Resp 28 H 08/22/20 11:00 BP 110/62 08/21/20 13:12 Pulse Ox 96 08/22/20 11:00 Intake & Output 08/21/20 08/22/20 08/22/20 18:59 06:59 18:59 Intake Total 617 980 344.35 Output Total 6405 78 25 Balance -5788 902 319.35 Weight 163.2 kg 163.2 kg Intake: IV 281 458 115 0.9 245 422 100 Pressure Bag 36 36 15 Intake, IV Titration 300 300 193.35 Amount propofoL 1,000 mg In 300 300 193.35 Empty Bag 1 bag @ Titrate IV .Q0M [facility] Rx#: [id number] Tube Feeding 36 132 36 Other 90 Output: Urine 105 78 25 Hemodialysis 3300 Other 3000 Other: Voiding Method Indwelling Catheter Indwelling Catheter Indwelling Catheter ABP, PAP, CO, CI - Last Documented Arterial Blood Pressure 104/54 On examination she is sedated on the vent 50% FiO2 HEENT exam difficult to examine because of obesity Lungs are fairly clear to auscultation fair air entry bilaterally Heart sounds unremarkable. Abdomen is obese and protuberant Extremity exam was mild edema. Neurologically obtunded sedated - Labs CBC & Chem 7: 08/22/20 04:28 08/22/20 04:28 Labs: Abnormal Lab Results - Last 24 Hours (Table) 08/21/20 08/21/20 08/21/20 Range/Units 05:40 17:48 23:54 WBC 27.3 H (3.8-10.6) k/uL RBC (3.80-5.40) m/uL Hgb (11.4-16.0) gm/dL Hct (34.0-46.0) % Neutrophils # (Manual) 23.20 H (1.3-7.7) k/uL Monocytes # (Manual) 1.37 H (0-1.0) k/uL Eosinophils # (Manual) (0-0.7) k/uL Metamyelocytes # (Man) 0.82 H (0) k/uL Myelocytes # (Manual) 0.27 H (0) k/uL Nucleated RBCs 1 H (0-0) /100 WBC APTT (22.0-30.0) sec ABG pH (7.35-7.45) ABG pCO2 (35-45) mmHg ABG pO2 (83-108) mmHg ABG HCO3 (21-25) mmol/L ABG O2 Saturation (94-97) % Sodium (137-145) mmol/L Chloride (98-107) mmol/L Carbon Dioxide (22-30) mmol/L BUN (7-17) mg/dL Creatinine (0.52-1.04) mg/dL Glucose (74-99) mg/dL POC Glucose (mg/dL) 118 H 127 H (75-99) mg/dL Calcium (8.4-10.2) mg/dL Total Bilirubin (0.2-1.3) mg/dL AST (14-36) U/L Alkaline Phosphatase (38-126) U/L Albumin (3.5-5.0) g/dL 08/22/20 08/22/20 08/22/20 Range/Units 04:28 04:28 04:28 WBC 38.5 H (3.8-10.6) k/uL RBC 3.19 L (3.80-5.40) m/uL Hgb 8.6 L (11.4-16.0) gm/dL Hct 26.4 L (34.0-46.0) % Neutrophils # (Manual) 32.70 H (1.3-7.7) k/uL Monocytes # (Manual) 1.54 H (0-1.0) k/uL Eosinophils # (Manual) 0.77 H (0-0.7) k/uL Metamyelocytes # (Man) 1.16 H (0) k/uL Myelocytes # (Manual) 0.39 H (0) k/uL Nucleated RBCs 1 H (0-0) /100 WBC APTT 51.2 H (22.0-30.0) sec ABG pH (7.35-7.45) ABG pCO2 (35-45) mmHg ABG pO2 (83-108) mmHg ABG HCO3 (21-25) mmol/L ABG O2 Saturation (94-97) % Sodium 131 L (137-145) mmol/L Chloride 97 L (98-107) mmol/L Carbon Dioxide 20 L (22-30) mmol/L BUN 63 H (7-17) mg/dL Creatinine 4.25 H (0.52-1.04) mg/dL Glucose 107 H (74-99) mg/dL POC Glucose (mg/dL) (75-99) mg/dL Calcium 7.0 L (8.4-10.2) mg/dL Total Bilirubin 1.9 H (0.2-1.3) mg/dL AST 79 H (14-36) U/L Alkaline Phosphatase 179 H (38-126) U/L Albumin 2.9 L (3.5-5.0) g/dL 08/22/20 08/22/20 Range/Units 05:55 06:19 WBC (3.8-10.6) k/uL RBC (3.80-5.40) m/uL Hgb (11.4-16.0) gm/dL Hct (34.0-46.0) % Neutrophils # (Manual) (1.3-7.7) k/uL Monocytes # (Manual) (0-1.0) k/uL Eosinophils # (Manual) (0-0.7) k/uL Metamyelocytes # (Man) (0) k/uL Myelocytes # (Manual) (0) k/uL Nucleated RBCs (0-0) /100 WBC APTT (22.0-30.0) sec ABG pH 7.23 L (7.35-7.45) ABG pCO2 48 H (35-45) mmHg ABG pO2 118 H (83-108) mmHg ABG HCO3 20 L (21-25) mmol/L ABG O2 Saturation 98.6 H (94-97) % Sodium (137-145) mmol/L Chloride (98-107) mmol/L Carbon Dioxide (22-30) mmol/L BUN (7-17) mg/dL Creatinine (0.52-1.04) mg/dL Glucose (74-99) mg/dL POC Glucose (mg/dL) 121 H (75-99) mg/dL Calcium (8.4-10.2) mg/dL Total Bilirubin (0.2-1.3) mg/dL AST (14-36) U/L Alkaline Phosphatase (38-126) U/L Albumin (3.5-5.0) g/dL Microbiology - Last 24 Hours (Table) 08/15/20 22:19 Blood Culture - Final Blood No Growth after 144 hours Assessment and Plan Plan: Impression 1. Hemodialysis dependent ATN from pneumonia and sepsis 2. When dependent respiratory failure secondary to strep pneumonia 3. History of diabetes mellitus 4. History of obstructive sleep apnea 5. Obesity Recommendation 1. Continue same medications 2. Next hemodialysis will be Monday there is no evidence of any congestive heart failure
[2020-08-22 12:07] LABS: Glucose,Whole Blood 125 mg/dL (75-99)
[2020-08-22] MEDS: SODIUM CHLORIDE 0.9% 1,000 ML IV SCH (12:20)
--- NOTE | 2020-08-22 14:58 | PN ---
PROGRESS NOTE PULMONARY/CRITICAL CARE PROGRESS NOTE DATE OF SERVICE: August 22, 2020. Critical care time is 33 minutes. HISTORY: This is a 55-year-old female admitted on August 16. She came in with sepsis. She was intubated on the for hypoxemic respiratory failure, she self-extubated herself on the same day and was reintubated on the . She remains on mechanical ventilator. She has made very little progress toward weaning and extubation. Currently, she is on the VC plus modality, which is also known as pressure regulated volume control, with inspiratory timer TI of 0.9, a targeted tidal volume is 350, a rate of 36, FiO2 50% and PEEP of 16. Blood gases show PO2 of 118, pCO2 48, and pH of 7.23. The PEEP was decreased from 16 to 12. Currently, the patient is getting saline at 20 mL an hour, propofol at 60 mcg/kg per minutes heparin which is currently off and vital high-protein at 12, which is goal. She will have hemodialysis again today. She will hopefully get 3 L off. She had 3 L off yesterday. The sputum from August 16 showed strep pneumoniae. PHYSICAL EXAMINATION: VITAL SIGNS: Current vital signs are reviewed. Temperature is 98.7, heart rate is 71, respiratory rate is 36, and blood pressure is 104/54 with saturation of 96%. Appears in no acute distress. Currently sedated. HEENT: Examination is grossly unremarkable. There is an orally placed endotracheal tube. NG tube is noted. NECK: Supple. Full range of motion. No adenopathy. Neck veins are flat. CARDIOVASCULAR: Examination reveals regular rhythm rate. Heart rate 75. S1, S2 normal. No S3, S4, or murmur. LUNGS: Lungs reveal a few scattered coarse rhonchi. Breath sounds equal. Breath sounds are diminished throughout. ABDOMEN: Soft. Bowel sounds are heard. EXTREMITIES: Intact. There is edema. SKIN: Without rash. NEUROLOGIC: Examination is difficult to assess. LABS: Reviewed. White count 38.5, hemoglobin 8.6, hematocrit 26.4, platelet count 313,000. PTT is 51.2. Blood gases have been noted. Sodium 131, potassium 4.3, chloride 97, CO2 of 20. Anion gap is 14. BUN and creatinine were 63 and 4.25. Glucose 125, calcium 7, bilirubin 1.9, AST 79, ALT 27, albumin 2.9. Microbiology is showing a strep pneumoniae in the sputum from August 16. Chest x-ray on August 22 shows evidence of bilateral airspace disease with pleural effusions. MEDICATIONS: Reviewed. Currently she is on amiodarone, Unasyn, aspirin Lipitor, Pulmicort, chlorhexidine, vitamin D2, formoterol, IV heparin, Dilaudid, insulin, DuoNeb, levothyroxine, Narcan, Protonix, Paxil, propofol and saline at 20 mL an hour. ASSESSMENT: 1. Acute hypoxemic and hypercapnic respiratory failure, secondary to left lower lobe pneumonia with sepsis, status post intubation on August 16, 2020. 2. Status post bronchoscopy on August 17, 2020. 3. Sepsis with septic shock secondary to left lower lobe pneumonia, caused by Streptococcus pneumoniae. 4. Lactic acidemia. 5. Anion gap metabolic acidosis. 6. Acute kidney injury. 7. Acute exacerbation of asthma. 8. Sleep apnea syndrome. 9. Pickwickian syndrome. 10.Type 2 diabetes mellitus. 11.History of depression/anxiety. 12.Negative. COVID-19 testing. 13.Hypothyroidism. PLAN: Currently, the patient is doing better. We were able to make a PEEP change from 16 to 12. Chest x-ray is stable. She seems to be tolerating VC plus better than volume assist-control. She has dialysis today, 3 L will hopefully be removed. Additional recommendations and suggestions are forthcoming. Prognosis is guarded. We will continue to follow. Critical care time 33 minutes. MMODL / IJN: [id number] /
[2020-08-22 16:37] LABS: Glucose,Whole Blood 113 mg/dL (75-99)
--- NOTE | 2020-08-22 16:50 | P.PN ---
Subjective Progress Note Date: 08/22/20 Principal diagnosis: Acute hypoxic/hypercapnic respiratory failure secondary to left lower lobe pneumonia with sepsis 55-year-old female patient was morbid obesity as well as multiple comorbid conditions who was admitted to the hospital with acute hypoxic respiratory failure secondary to pneumonia and she was intubated and placed on mechanical ventilation. Cardiology consulted to see the patient for further evaluation off tachycardia episode consistent with atrial fibrillation. The patient was seen this morning. She continues to be intubated on mechanical ventilation. Hemodynamically she is a stable and not requiring any vasopressors. She has been maintaining normal sinus mechanism. She is on amiodarone by mouth. Also she is on heparin IV. We will consider oral anticoagulation was noted that the patient is not in process of having any further surgical procedure. Otherwise we will continue the current medical regimen. Please note that the echocardiogram revealed cardiomyopathy. Also the patient has been dialysis every day. 08/22/2020 Patient is seen and evaluated at bedside in ICU; patient remains on mechanical ventilation; remains sedated with propofol; continues to be hemodialyzed daily; intensive care and nephrology on board and managing ventilator and hemodialysis Objective - Vital Signs Vital signs: Vital Signs Temp 98.7 F 08/22/20 08:00 Pulse 75 08/22/20 08:00 Resp 29 H 08/22/20 08:00 BP 118/73 08/21/20 18:00 Pulse Ox 95 08/22/20 08:00 Intake & Output 08/21/20 08/22/20 08/22/20 18:59 06:59 18:59 Intake Total 617 980 158 Output Total 6405 78 25 Balance -5788 902 133 Weight 163.2 kg 163.2 kg Intake: IV 281 458 46 0.9 245 422 40 Pressure Bag 36 36 6 Intake, IV Titration 300 300 100 Amount propofoL 1,000 mg In 300 300 100 Empty Bag 1 bag @ Titrate IV .Q0M [facility] Rx#: [id number] Tube Feeding 36 132 12 Other 90 Output: Urine 105 78 25 Hemodialysis 3300 Other 3000 Other: Voiding Method Indwelling Catheter Indwelling Catheter ABP, PAP, CO, CI - Last Documented Arterial Blood Pressure 114/58 - Exam GENERAL: Well-developed in no acute distress. HEENT: Head is normocephalic. Pupils are equal, round. Sclerae anicteric. Mucous membranes of the mouth are moist. Neck supple. No JVD or thyromegaly LUNGS: Respirations even and unlabored. Lungs diminished. HEART: Regular rate and rhythm. S1 and S2 heard. ABDOMEN: Soft. Nondistended. Nontender. EXTREMITIES: Normal range of motion. No clubbing or cyanosis. Peripheral pulses intact. No lower extremity edema NEUROLOGIC: Sedated on mechanical ventilation - Labs CBC & Chem 7: 08/22/20 04:28 08/22/20 04:28 Labs: Abnormal Lab Results - Last 24 Hours (Table) 08/21/20 08/21/20 08/21/20 Range/Units 05:40 11:40 17:48 WBC 27.3 H (3.8-10.6) k/uL RBC (3.80-5.40) m/uL Hgb (11.4-16.0) gm/dL Hct (34.0-46.0) % Neutrophils # (Manual) 23.20 H (1.3-7.7) k/uL Monocytes # (Manual) 1.37 H (0-1.0) k/uL Eosinophils # (Manual) (0-0.7) k/uL Metamyelocytes # (Man) 0.82 H (0) k/uL Myelocytes # (Manual) 0.27 H (0) k/uL Nucleated RBCs 1 H (0-0) /100 WBC APTT (22.0-30.0) sec ABG pH (7.35-7.45) ABG pCO2 (35-45) mmHg ABG pO2 (83-108) mmHg ABG HCO3 (21-25) mmol/L ABG O2 Saturation (94-97) % Sodium (137-145) mmol/L Chloride (98-107) mmol/L Carbon Dioxide (22-30) mmol/L BUN (7-17) mg/dL Creatinine (0.52-1.04) mg/dL Glucose (74-99) mg/dL POC Glucose (mg/dL) 133 H 118 H (75-99) mg/dL Calcium (8.4-10.2) mg/dL Total Bilirubin (0.2-1.3) mg/dL AST (14-36) U/L Alkaline Phosphatase (38-126) U/L Albumin (3.5-5.0) g/dL 08/21/20 08/22/20 08/22/20 Range/Units 23:54 04:28 04:28 WBC 38.5 H (3.8-10.6) k/uL RBC 3.19 L (3.80-5.40) m/uL Hgb 8.6 L (11.4-16.0) gm/dL Hct 26.4 L (34.0-46.0) % Neutrophils # (Manual) 32.70 H (1.3-7.7) k/uL Monocytes # (Manual) 1.54 H (0-1.0) k/uL Eosinophils # (Manual) 0.77 H (0-0.7) k/uL Metamyelocytes # (Man) 1.16 H (0) k/uL Myelocytes # (Manual) 0.39 H (0) k/uL Nucleated RBCs 1 H (0-0) /100 WBC APTT (22.0-30.0) sec ABG pH (7.35-7.45) ABG pCO2 (35-45) mmHg ABG pO2 (83-108) mmHg ABG HCO3 (21-25) mmol/L ABG O2 Saturation (94-97) % Sodium 131 L (137-145) mmol/L Chloride 97 L (98-107) mmol/L Carbon Dioxide 20 L (22-30) mmol/L BUN 63 H (7-17) mg/dL Creatinine 4.25 H (0.52-1.04) mg/dL Glucose 107 H (74-99) mg/dL POC Glucose (mg/dL) 127 H (75-99) mg/dL Calcium 7.0 L (8.4-10.2) mg/dL Total Bilirubin 1.9 H (0.2-1.3) mg/dL AST 79 H (14-36) U/L Alkaline Phosphatase 179 H (38-126) U/L Albumin 2.9 L (3.5-5.0) g/dL 08/22/20 08/22/20 08/22/20 Range/Units 04:28 05:55 06:19 WBC (3.8-10.6) k/uL RBC (3.80-5.40) m/uL Hgb (11.4-16.0) gm/dL Hct (34.0-46.0) % Neutrophils # (Manual) (1.3-7.7) k/uL Monocytes # (Manual) (0-1.0) k/uL Eosinophils # (Manual) (0-0.7) k/uL Metamyelocytes # (Man) (0) k/uL Myelocytes # (Manual) (0) k/uL Nucleated RBCs (0-0) /100 WBC APTT 51.2 H (22.0-30.0) sec ABG pH 7.23 L (7.35-7.45) ABG pCO2 48 H (35-45) mmHg ABG pO2 118 H (83-108) mmHg ABG HCO3 20 L (21-25) mmol/L ABG O2 Saturation 98.6 H (94-97) % Sodium (137-145) mmol/L Chloride (98-107) mmol/L Carbon Dioxide (22-30) mmol/L BUN (7-17) mg/dL Creatinine (0.52-1.04) mg/dL Glucose (74-99) mg/dL POC Glucose (mg/dL) 121 H (75-99) mg/dL Calcium (8.4-10.2) mg/dL Total Bilirubin (0.2-1.3) mg/dL AST (14-36) U/L Alkaline Phosphatase (38-126) U/L Albumin (3.5-5.0) g/dL Microbiology - Last 24 Hours (Table) 08/15/20 22:19 Blood Culture - Final Blood No Growth after 144 hours Assessment and Plan Assessment: 1. Acute hypoxic respiratory failure requiring mechanical ventilation secondary to pneumonia 2. Sepsis, secondary to pneumonia 3. Paroxysmal atrial fibrillation with RVR 4. Cardiomyopathy, unknown if ischemic or nonischemic, EF 30-35% 5. Abnormal troponins, possible NSTEMI, may be secondary to hypoxia, sepsis, and/or afib with RVR, however can not rule out underlying coronary artery disease 6. Severe pulmonary hypertension 7. Acute kidney injury 8. Hypotension requiring vasopressor support 9. History of asthma 10. Hypothyroidism PLAN: Continue ventilator management per critical care Continue dialysis per nephrology Continue aspirin and atorvastatin Continue IV heparin Transition IV amiodarone to oral dosing Will hold off on beta ada secondary to history of asthma. Further recommendations pending patient's course
[2020-08-22] MEDS: ATORVASTATIN 80 MG TAB PO SCH (20:27)
[2020-08-22] MEDS ORDERED: ANIDULAFUNGIN 200 MG in SODIUM CHLORIDE 0.9% 200 ML IVPB ONE (21:30)
--- NOTE | 2020-08-22 22:08 | PN ---
PROGRESS NOTE DATE OF SERVICE: 08/22/2020. REASON FOR FOLLOWUP: Strep pneumo aspiration pneumonia. INTERVAL HISTORY: The patient is currently afebrile. The patient is hemodynamically stable on pressor support. FiO2 is currently 40 to 50%. No diarrhea reported. PHYSICAL EXAMINATION: Blood pressure 120/59, pulse of 73, temperature 98.7, she is 97% on 50% FiO2. GENERAL DESCRIPTION: A middle-aged female lying in bed in no distress. RESPIRATORY SYSTEM: Unlabored breathing, decreased intensity of breath sounds. No wheeze. HEART: S1, S2. Regular rate and rhythm. ABDOMEN: Soft, nontender. LABS: Hemoglobin 8.8, white count ____, BUN of 33, creatinine 4.25. Bronch culture has been negative. DIAGNOSTIC IMPRESSION AND PLAN: Patient with acute respiratory failure which is multifactorial in this patient have a component of pneumonia, likely aspiration etiology. Sputum has been strep pneumo code. Unasyn dose has been adjusted due to kidney function, with worsening of the white count more likely related to the steroid effect versus oropharyngeal candidiasis. Will add Diflucan. Monitor clinical course closely. MMODL / IJN: [id number] /
[2020-08-23 00:02] LABS: Glucose,Whole Blood 104 mg/dL (75-99)
[2020-08-23] MEDS: INSULIN ASPART (NovoLOG) 100 UNIT/ML VIAL SQ SCH ×4 (00:12→19:01)
[2020-08-23] MEDS: AMPICILLIN-SULBACTAM 3 GM in SODIUM CHLORIDE 0.9% 100 ML IVPB SCH (00:28)
[2020-08-23] MEDS: IPRATROPIUM-ALBUTEROL 3 ML NEB INHALATION SCH ×5 (02:59→19:33)
[2020-08-23 04:30] LABS: ABG Base Excess -5.7 mmol/L; ABG HCO3 21 mmol/L (21-25); ABG Oxygen Saturation 98.8 % (94-97); ABG PCO2 45 mmHg (35-45); ABG PH 7.28 (7.35-7.45); ABG PO2 123 mmHg (83-108); ABG TCO2 22 mmol/L (19-24); Allen Test Performed? Yes
[2020-08-23 05:02] LABS: Glucose,Whole Blood 110 mg/dL (75-99)
[2020-08-23 05:29] LABS: Albumin 2.7 g/dL (3.5-5.0); Calcium 7.2 mg/dL (8.4-10.2); Magnesium 2.1 mg/dL (1.6-2.3); Phosphorus 8.8 mg/dL (2.5-4.5); Potassium 3.8 mmol/L (3.5-5.1); Total Bilirubin 1.6 mg/dL (0.2-1.3); Total Protein 6.3 g/dL (6.3-8.2)
[2020-08-23 05:30] LABS: HCT 25.7 % (34.0-46.0); HGB 9.2 gm/dL (11.4-16.0); MCH 29.3 pg (25.0-35.0); MCHC 35.9 g/dL (31.0-37.0); MCV 81.6 fL (80.0-100.0); Mean Platelet Volume 7.7; Platelet Count 356 k/uL (150-450); RBC 3.15 m/uL (3.80-5.40); RDW 15.8 % (11.5-15.5); WBC 36.1 k/uL (3.8-10.6)
[2020-08-23 07:04] LABS: Anisocytosis (M) Present; Band Neutrophils % 14 %; Eosinophils # (M) 1.81 k/uL (0-0.7); Lymphocytes # (M) 2.17 k/uL (1.0-4.8); Neutrophils % (M) 75 %; Nucleated Red Blood Cells 0 /100 WBC (0-0); Polychromasia Present; Total Cells Counted 100
[2020-08-23] MEDS: LEVOTHYROXINE 100 MCG TAB PO SCH (07:12)
--- NOTE | 2020-08-23 07:18 | P.PN ---
Subjective Progress Note Date: 08/23/20 Principal diagnosis: Paroxysmal atrial fibrillation This is a 55-year-old female patient was morbid obesity as well as multiple comorbid conditions who was admitted to the hospital with acute hypoxic respiratory failure secondary to pneumonia and she was intubated and placed on mechanical ventilation. We requested to see the patient for further evaluation off tachycardia episode consistent with atrial fibrillation. The patient was seen today. She remains intubated on mechanical ventilation. She has been in and out atrial fibrillation last 24 hours. She is on amiodarone only. I'm going to add metoprolol to the current medical regimen. Also she was on heparin IV but she developed nosebleed and because of that the heparin was stopped. I'm going to start the patient on small dose of oral anticoagulation with Eliquis. We will continue monitor for bleeding and stop the medication if the patient developed bleeding again. She continues to have dialysis and nephro logy team is on the case. Please note that the echocardiogram revealed cardiomyopathy with EF around 35%. This probably related to atrial fibrillation. Objective - Vital Signs Vital signs: Vital Signs Temp 98.8 F 08/23/20 00:00 Pulse 80 08/23/20 06:00 Resp 21 08/23/20 06:00 BP 128/62 08/22/20 12:41 Pulse Ox 96 08/23/20 06:00 Intake & Output 08/22/20 08/23/20 08/23/20 18:59 06:59 18:59 Intake Total 747.000 675 Output Total 3543 100 Balance -2796.000 575 Intake: IV 299 253 0.9 260 220 Pressure Bag 39 33 Intake, IV Titration 400.000 200 Amount propofoL 1,000 mg In 400.000 200 Empty Bag 1 bag @ Titrate IV .Q0M [facility] Rx#: [id number] Tube Feeding 48 132 Other 90 Output: Urine 43 100 Hemodialysis 3500 Other: Voiding Method Indwelling Catheter Indwelling Catheter ABP, PAP, CO, CI - Last Documented Arterial Blood Pressure 131/66 - Constitutional General appearance: Present: no acute distress - Respiratory Respiratory: bilateral: diminished - Cardiovascular Rhythm: regular Heart sounds: normal: S1, S2 - Labs CBC & Chem 7: 08/23/20 04:50 08/23/20 04:50 Labs: Abnormal Lab Results - Last 24 Hours (Table) 08/22/20 08/22/20 08/23/20 Range/Units 12:05 16:35 00:01 WBC (3.8-10.6) k/uL RBC (3.80-5.40) m/uL Hgb (11.4-16.0) gm/dL Hct (34.0-46.0) % RDW (11.5-15.5) % Neutrophils # (Manual) (1.3-7.7) k/uL Eosinophils # (Manual) (0-0.7) k/uL ABG pH (7.35-7.45) ABG pO2 (83-108) mmHg ABG O2 Saturation (94-97) % Sodium (137-145) mmol/L Chloride (98-107) mmol/L Carbon Dioxide (22-30) mmol/L BUN (7-17) mg/dL Creatinine (0.52-1.04) mg/dL POC Glucose (mg/dL) 125 H 113 H 104 H (75-99) mg/dL Calcium (8.4-10.2) mg/dL Phosphorus (2.5-4.5) mg/dL Total Bilirubin (0.2-1.3) mg/dL AST (14-36) U/L Alkaline Phosphatase (38-126) U/L Albumin (3.5-5.0) g/dL 08/23/20 08/23/20 08/23/20 Range/Units 04:27 04:50 04:50 WBC 36.1 H (3.8-10.6) k/uL RBC 3.15 L (3.80-5.40) m/uL Hgb 9.2 L (11.4-16.0) gm/dL Hct 25.7 L (34.0-46.0) % RDW 15.8 H (11.5-15.5) % Neutrophils # (Manual) 32.10 H (1.3-7.7) k/uL Eosinophils # (Manual) 1.81 H (0-0.7) k/uL ABG pH 7.28 L (7.35-7.45) ABG pO2 123 H (83-108) mmHg ABG O2 Saturation 98.8 H (94-97) % Sodium 130 L (137-145) mmol/L Chloride 97 L (98-107) mmol/L Carbon Dioxide 19 L (22-30) mmol/L BUN 46 H (7-17) mg/dL Creatinine 3.45 H (0.52-1.04) mg/dL POC Glucose (mg/dL) (75-99) mg/dL Calcium 7.2 L (8.4-10.2) mg/dL Phosphorus 8.8 H (2.5-4.5) mg/dL Total Bilirubin 1.6 H (0.2-1.3) mg/dL AST 71 H (14-36) U/L Alkaline Phosphatase 196 H (38-126) U/L Albumin 2.7 L (3.5-5.0) g/dL 08/23/20 Range/Units 05:00 WBC (3.8-10.6) k/uL RBC (3.80-5.40) m/uL Hgb (11.4-16.0) gm/dL Hct (34.0-46.0) % RDW (11.5-15.5) % Neutrophils # (Manual) (1.3-7.7) k/uL Eosinophils # (Manual) (0-0.7) k/uL ABG pH (7.35-7.45) ABG pO2 (83-108) mmHg ABG O2 Saturation (94-97) % Sodium (137-145) mmol/L Chloride (98-107) mmol/L Carbon Dioxide (22-30) mmol/L BUN (7-17) mg/dL Creatinine (0.52-1.04) mg/dL POC Glucose (mg/dL) 110 H (75-99) mg/dL Calcium (8.4-10.2) mg/dL Phosphorus (2.5-4.5) mg/dL Total Bilirubin (0.2-1.3) mg/dL AST (14-36) U/L Alkaline Phosphatase (38-126) U/L Albumin (3.5-5.0) g/dL Assessment and Plan Assessment: Assessment Acute hypoxic respiratory failure Pneumonia/sepsis Paroxysmal atrial fibrillation Multiple comorbid conditions Plan #1 continue the current dose of amiodarone by mouth #2 DC heparin and start the patient on oral anticoagulation #3 add metoprolol to the current medical regimen #4 monitor for any bleeding #5 follow-up with the patient
--- NOTE | 2020-08-23 07:39 | XR ---
EXAMINATION TYPE: XR chest 1V portable DATE OF EXAM: 08/23/2020 COMPARISON: 08/22/2020 HISTORY: SOB, Follow Up FINDINGS: Indwelling tubes and catheters are unchanged. Hilar and basilar infiltrates persist greatest at the left lung base. Overall no change appreciated. Stable appearance of the cardio-mediastinal structures at this time. Pleural effusion unchanged. IMPRESSION: 1. Stable portable chest. Clinical correlation and follow up until resolution is recommended.
[2020-08-23] MEDS: ERGOCALCIFEROL 50,000 UNIT CAP PO SCH (08:07)
[2020-08-23] MEDS: FORMOTEROL FUMARATE 20 MCG/2 ML NEBU INHALATION SCH ×2 (08:18→19:33)
[2020-08-23] MEDS: BUDESONIDE 1 MG/2 ML NEBU INHALATION SCH ×2 (08:18→19:33)
[2020-08-23 08:33] LABS: INR 0.9 (<1.2); Partial Thromboplastin Time 15.1 sec (22.0-30.0); Prothrombin Time 9.9 sec (9.0-12.0)
[2020-08-23] MEDS: AMIODARONE 200 MG TAB PO SCH ×2 (08:54→21:05)
[2020-08-23] MEDS: PARoxetine 20 MG TAB PO SCH (08:54)
[2020-08-23] MEDS: PANTOPRAZOLE 40 MG/10 ML VIAL IVP SCH (08:55)
[2020-08-23] MEDS: APIXABAN 2.5 MG TABLET PO SCH ×2 (08:55→21:06)
[2020-08-23] MEDS: HYDROmorphone 1 MG/ML 1 ML SYRINGE IVP PRN ×2 (08:55→18:48)
[2020-08-23] MEDS: METOPROLOL TARTRATE 25 MG TAB PO SCH ×2 (08:55→21:08)
[2020-08-23] MEDS: ASPIRIN 81 MG PO SCH (08:55)
[2020-08-23] MEDS: ANIDULAFUNGIN 100 MG in SODIUM CHLORIDE 0.9% 100 ML IVPB SCH (08:56)
[2020-08-23] MEDS: CHLORHEXIDINE GLUCONATE 15 ML CUP MUCOUS MEM SCH ×2 (08:56→21:05)
[2020-08-23] MEDS: SODIUM CHLORIDE 0.9% 1,000 ML IV SCH ×3 (08:57→22:47)
--- NOTE | 2020-08-23 09:59 | P.PN ---
Subjective Progress Note Date: 08/23/20 Principal diagnosis: This is a 55-year-old female seen in consultation with acute kidney injury from pneumococcal pneumonia, on the vent and has been on dialysis, she had a third d ialysis yesterday He remains on the vent with FiO2, no inotropes. Blood pressure is well maintain urine output is minimal. Attempt to wean her have been unsuccessful She has been started on Eraxis, antifungal by the infectious diseases She is known with diabetes, obstructive sleep apnea, hypothyroidism. She is somewhat obese Objective - Vital Signs Vital signs: Vital Signs Temp 99.1 F 08/23/20 08:00 Pulse 81 08/23/20 09:00 Resp 36 H 08/23/20 09:00 BP 128/62 08/22/20 12:41 Pulse Ox 96 08/23/20 09:00 Intake & Output 08/22/20 08/23/20 08/23/20 18:59 06:59 18:59 Intake Total 747.000 675 100 Output Total 3543 100 Balance -2796.000 575 100 Intake: IV 299 253 0.9 260 220 Pressure Bag 39 33 Intake, IV Titration 400.000 200 100 Amount propofoL 1,000 mg In 400.000 200 100 Empty Bag 1 bag @ Titrate IV .Q0M [facility] Rx#: [id number] Tube Feeding 48 132 Other 90 Output: Urine 43 100 Hemodialysis 3500 Other: Voiding Method Indwelling Catheter Indwelling Catheter ABP, PAP, CO, CI - Last Documented Arterial Blood Pressure 124/64 Examination she is currently sedated on the vent or 50% FiO2 Lungs are clear to auscultation distant breath sounds oh Heart sounds are unremarkable for any murmur rub gallop Abdomen soft obese Extremity exam was trace edema Neurologically obtunded because of sedation - Labs CBC & Chem 7: 08/23/20 04:50 08/23/20 04:50 Labs: Abnormal Lab Results - Last 24 Hours (Table) 08/22/20 08/22/20 08/23/20 Range/Units 12:05 16:35 00:01 WBC (3.8-10.6) k/uL RBC (3.80-5.40) m/uL Hgb (11.4-16.0) gm/dL Hct (34.0-46.0) % RDW (11.5-15.5) % Neutrophils # (Manual) (1.3-7.7) k/uL Eosinophils # (Manual) (0-0.7) k/uL APTT (22.0-30.0) sec ABG pH (7.35-7.45) ABG pO2 (83-108) mmHg ABG O2 Saturation (94-97) % Sodium (137-145) mmol/L Chloride (98-107) mmol/L Carbon Dioxide (22-30) mmol/L BUN (7-17) mg/dL Creatinine (0.52-1.04) mg/dL POC Glucose (mg/dL) 125 H 113 H 104 H (75-99) mg/dL Calcium (8.4-10.2) mg/dL Phosphorus (2.5-4.5) mg/dL Total Bilirubin (0.2-1.3) mg/dL AST (14-36) U/L Alkaline Phosphatase (38-126) U/L Albumin (3.5-5.0) g/dL 08/23/20 08/23/20 08/23/20 Range/Units 04:27 04:50 04:50 WBC 36.1 H (3.8-10.6) k/uL RBC 3.15 L (3.80-5.40) m/uL Hgb 9.2 L (11.4-16.0) gm/dL Hct 25.7 L (34.0-46.0) % RDW 15.8 H (11.5-15.5) % Neutrophils # (Manual) 32.10 H (1.3-7.7) k/uL Eosinophils # (Manual) 1.81 H (0-0.7) k/uL APTT (22.0-30.0) sec ABG pH 7.28 L (7.35-7.45) ABG pO2 123 H (83-108) mmHg ABG O2 Saturation 98.8 H (94-97) % Sodium 130 L (137-145) mmol/L Chloride 97 L (98-107) mmol/L Carbon Dioxide 19 L (22-30) mmol/L BUN 46 H (7-17) mg/dL Creatinine 3.45 H (0.52-1.04) mg/dL POC Glucose (mg/dL) (75-99) mg/dL Calcium 7.2 L (8.4-10.2) mg/dL Phosphorus 8.8 H (2.5-4.5) mg/dL Total Bilirubin 1.6 H (0.2-1.3) mg/dL AST 71 H (14-36) U/L Alkaline Phosphatase 196 H (38-126) U/L Albumin 2.7 L (3.5-5.0) g/dL 08/23/20 08/23/20 Range/Units 05:00 06:52 WBC (3.8-10.6) k/uL RBC (3.80-5.40) m/uL Hgb (11.4-16.0) gm/dL Hct (34.0-46.0) % RDW (11.5-15.5) % Neutrophils # (Manual) (1.3-7.7) k/uL Eosinophils # (Manual) (0-0.7) k/uL APTT 15.1 L (22.0-30.0) sec ABG pH (7.35-7.45) ABG pO2 (83-108) mmHg ABG O2 Saturation (94-97) % Sodium (137-145) mmol/L Chloride (98-107) mmol/L Carbon Dioxide (22-30) mmol/L BUN (7-17) mg/dL Creatinine (0.52-1.04) mg/dL POC Glucose (mg/dL) 110 H (75-99) mg/dL Calcium (8.4-10.2) mg/dL Phosphorus (2.5-4.5) mg/dL Total Bilirubin (0.2-1.3) mg/dL AST (14-36) U/L Alkaline Phosphatase (38-126) U/L Albumin (3.5-5.0) g/dL Assessment and Plan Plan: Impression 1. Hemodialysis dependent ATN from pneumonia and sepsis. Has been dialyzed 3 days in a row last dialysis was yesterday Monday 2. Ventilator dependent respiratory failure secondary to strep pneumonia, currently on FiO2 of 50% unchanged 3. History of diabetes mellitus 4. History of obstructive sleep apnea 5. Obesity Recommendation 1. Continue same medications 2. Next hemodialysis will be Monday, tomorrow. 3. Start IV normal saline at 60 an hour as she's not on any fluid
[2020-08-23 11:40] LABS: Glucose,Whole Blood 97 mg/dL (75-99)
--- NOTE | 2020-08-23 12:30 | PN ---
PROGRESS NOTE PULMONARY/CRITICAL CARE PROGRESS NOTE: DATE OF SERVICE: August 23, 2020 Critical care time: 33 minutes. HISTORY: This is a 55-year-old female admitted on August 16. She came in with sepsis, thought to be secondary to left lower lobe pneumonia. She was intubated on August 16 for hypoxemic respiratory failure. Unfortunately, she self-extubated herself on the same day and was reintubated on the again. She remains on mechanical ventilator and has not made much progress over the last 4 or 5 days since I have been here. She was dyssynchronous with the ventilator early on in the week and we switched her to the pressure regulated volume control modality or VC plus mode. Currently, she is on a rate of 36, inspiratory time or TI 0.9 seconds, a targeted tidal volume is 350, FiO2 50% and PEEP of 12 to be dropped down to 8. Her blood gases this morning on 12 of PEEP show pO2 of 123, pCO2 45, and a pH 7.28. She is getting 0.9 at 75 mL an hour, propofol at 55 mics per kg per minute and Vital high-protein at 12 with a goal of 12 mL an hour. On the , she did have hemodialysis and 3.5 L was removed. Currently, she has been relatively stable and her chest x-ray has been improving over the last couple days with ongoing hemodialysis. The sputum from August 16 did show evidence of Streptococcus pneumoniae. She did have a bronchoscopy at the bedside on August 17. PHYSICAL EXAMINATION: Current vital signs are reviewed. Temperature is 99.1, heart rate 71, respiratory rate 36, blood pressure 105/58, and saturations are 93%. GENERAL: Appears in no acute distress, currently sedated. She has an orally placed endotracheal tube and NG tube. NECK: Supple. Full range of motion. No adenopathy or thyromegaly. Neck veins are flat. CARDIOVASCULAR: Examination reveals regular rhythm and rate. Heart rate mid 70s to low 80s. Heart sounds are distant. S1, S2 normal. No distinct murmur. LUNGS: Reveal diffuse coarse rhonchi and crackles. Breath sounds equal. Breath sounds are improved, though. ABDOMEN: Obese. Bowel sounds are heard. EXTREMITIES are intact. There is edema. No cyanosis or clubbing. SKIN: Without rash. NEUROLOGIC: Examination is difficult to assess. LABS: Reviewed. White count 36.1, hemoglobin 9.2, hematocrit 25.7, platelet count 156,000, PT/INR and PTT are all normal. Blood gases have been noted. Sodium 130, potassium 3.8, chloride 97, CO2 19, anion gap is 14. BUN and creatinine were 46 and 3.45. The rest of the labs look okay. Microbiology showing Streptococcus pneumoniae in the sputum from August 16. Chest x-ray from the , shows continued overall slight improvement in the pattern on chest x-ray. MEDICATIONS: Reviewed. Currently, she is on Cordarone, Unasyn, Eraxis, Eliquis, aspirin, Lipitor, Pulmicort, chlorhexidine, vitamin D2, Formoterol, Dilaudid, insulin, DuoNeb, levothyroxine, metoprolol, Narcan, Protonix, Paxil, propofol and saline IV. ASSESSMENT: 1. Acute hypoxemic hypercapnic respiratory failure, secondary to left lower lobe pneumonia, with sepsis, status post intubation on August 16, 2020. 2. Status post bronchoscopy on August 17, 2020 for mucus plugs. 3. Sepsis with septic shock secondary to left lower lobe pneumonia, caused by Streptococcus pneumoniae. 4. Lactic acidemia. 5. Anion gap metabolic acidosis. 6. Acute kidney injury, resulting in hemodialysis. 7. Acute exacerbation of asthma. 8. Sleep apnea syndrome. 9. Pickwickian syndrome. 10.Type 2 diabetes mellitus. 11.History of depression/anxiety. 12.Negative COVID-19 testing. 13.Hypothyroidism. PLAN: The patient's PEEP level has dropped from 12-8. Her oxygenation is improved. She had hemodialysis yesterday. 3.5 L was removed. She remains on propofol at 55 mics per kg per minute. She is getting enteral nutrition at goal. She is tolerating the VC plus modality well. We will continue to follow. She remains on Unasyn and recently an anti- fungal was added. Will continue to observe. Prognosis is guarded. Critical care time 33 minutes. MMODL / IJN: [id number] / MTDD
--- NOTE | 2020-08-23 16:16 | P.PN ---
Subjective Progress Note Date: 08/23/20 Principal diagnosis: Acute hypoxic/hypercapnic respiratory failure secondary to left lower lobe pneumonia with sepsis 55-year-old female patient was morbid obesity as well as multiple comorbid conditions who was admitted to the hospital with acute hypoxic respiratory failure secondary to pneumonia and she was intubated and placed on mechanical ventilation. Cardiology consulted to see the patient for further evaluation off tachycardia episode consistent with atrial fibrillation. The patient was seen this morning. She continues to be intubated on mechanical ventilation. Hemodynamically she is a stable and not requiring any vasopressors. She has been maintaining normal sinus mechanism. She is on amiodarone by mouth. Also she is on heparin IV. We will consider oral anticoagulation was noted that the patient is not in process of having any further surgical procedure. Otherwise we will continue the current medical regimen. Please note that the echocardiogram revealed cardiomyopathy. Also the patient has been dialysis every day. 08/22/2020 Patient is seen and evaluated at bedside in ICU; patient remains on mechanical ventilation; remains sedated with propofol; continues to be hemodialyzed daily; intensive care and nephrology on board and managing ventilator and hemodialysis 08/23/2020 Patient is seen and evaluated in ICU; remains intubated; patient remains in and out of atrial fibrillation; cardiology is following and recommending to continue amiodarone and addition of metoprolol; heparin has been discontinued because of nosebleed; cardiology recommending to start small dose of oral anticoagulation; echocardiogram reveals EF of 35%; nephrology on board for dialysis Objective - Vital Signs Vital signs: Vital Signs Temp 98.8 F 08/23/20 00:00 Pulse 81 08/23/20 08:37 Resp 21 08/23/20 06:00 BP 128/62 08/22/20 12:41 Pulse Ox 96 08/23/20 06:00 Intake & Output 08/22/20 08/23/20 08/23/20 18:59 06:59 18:59 Intake Total 747.000 675 100 Output Total 3543 100 Balance -2796.000 575 100 Intake: IV 299 253 0.9 260 220 Pressure Bag 39 33 Intake, IV Titration 400.000 200 100 Amount propofoL 1,000 mg In 400.000 200 100 Empty Bag 1 bag @ Titrate IV .Q0M [facility] Rx#: [id number] Tube Feeding 48 132 Other 90 Output: Urine 43 100 Hemodialysis 3500 Other: Voiding Method Indwelling Catheter Indwelling Catheter ABP, PAP, CO, CI - Last Documented Arterial Blood Pressure 131/66 - Exam GENERAL: Well-developed in no acute distress. HEENT: Head is normocephalic. Pupils are equal, round. Sclerae anicteric. Mucous membranes of the mouth are moist. Neck supple. No JVD or thyromegaly LUNGS: Respirations even and unlabored. Lungs diminished. HEART: Regular rate and rhythm. S1 and S2 heard. ABDOMEN: Soft. Nondistended. Nontender. EXTREMITIES: Normal range of motion. No clubbing or cyanosis. Peripheral pulses intact. No lower extremity edema NEUROLOGIC: Sedated on mechanical ventilation - Labs CBC & Chem 7: 08/23/20 04:50 08/23/20 04:50 Labs: Abnormal Lab Results - Last 24 Hours (Table) 08/22/20 08/22/20 08/23/20 Range/Units 12:05 16:35 00:01 WBC (3.8-10.6) k/uL RBC (3.80-5.40) m/uL Hgb (11.4-16.0) gm/dL Hct (34.0-46.0) % RDW (11.5-15.5) % Neutrophils # (Manual) (1.3-7.7) k/uL Eosinophils # (Manual) (0-0.7) k/uL APTT (22.0-30.0) sec ABG pH (7.35-7.45) ABG pO2 (83-108) mmHg ABG O2 Saturation (94-97) % Sodium (137-145) mmol/L Chloride (98-107) mmol/L Carbon Dioxide (22-30) mmol/L BUN (7-17) mg/dL Creatinine (0.52-1.04) mg/dL POC Glucose (mg/dL) 125 H 113 H 104 H (75-99) mg/dL Calcium (8.4-10.2) mg/dL Phosphorus (2.5-4.5) mg/dL Total Bilirubin (0.2-1.3) mg/dL AST (14-36) U/L Alkaline Phosphatase (38-126) U/L Albumin (3.5-5.0) g/dL 08/23/20 08/23/20 08/23/20 Range/Units 04:27 04:50 04:50 WBC 36.1 H (3.8-10.6) k/uL RBC 3.15 L (3.80-5.40) m/uL Hgb 9.2 L (11.4-16.0) gm/dL Hct 25.7 L (34.0-46.0) % RDW 15.8 H (11.5-15.5) % Neutrophils # (Manual) 32.10 H (1.3-7.7) k/uL Eosinophils # (Manual) 1.81 H (0-0.7) k/uL APTT (22.0-30.0) sec ABG pH 7.28 L (7.35-7.45) ABG pO2 123 H (83-108) mmHg ABG O2 Saturation 98.8 H (94-97) % Sodium 130 L (137-145) mmol/L Chloride 97 L (98-107) mmol/L Carbon Dioxide 19 L (22-30) mmol/L BUN 46 H (7-17) mg/dL Creatinine 3.45 H (0.52-1.04) mg/dL POC Glucose (mg/dL) (75-99) mg/dL Calcium 7.2 L (8.4-10.2) mg/dL Phosphorus 8.8 H (2.5-4.5) mg/dL Total Bilirubin 1.6 H (0.2-1.3) mg/dL AST 71 H (14-36) U/L Alkaline Phosphatase 196 H (38-126) U/L Albumin 2.7 L (3.5-5.0) g/dL 08/23/20 08/23/20 Range/Units 05:00 06:52 WBC (3.8-10.6) k/uL RBC (3.80-5.40) m/uL Hgb (11.4-16.0) gm/dL Hct (34.0-46.0) % RDW (11.5-15.5) % Neutrophils # (Manual) (1.3-7.7) k/uL Eosinophils # (Manual) (0-0.7) k/uL APTT 15.1 L (22.0-30.0) sec ABG pH (7.35-7.45) ABG pO2 (83-108) mmHg ABG O2 Saturation (94-97) % Sodium (137-145) mmol/L Chloride (98-107) mmol/L Carbon Dioxide (22-30) mmol/L BUN (7-17) mg/dL Creatinine (0.52-1.04) mg/dL POC Glucose (mg/dL) 110 H (75-99) mg/dL Calcium (8.4-10.2) mg/dL Phosphorus (2.5-4.5) mg/dL Total Bilirubin (0.2-1.3) mg/dL AST (14-36) U/L Alkaline Phosphatase (38-126) U/L Albumin (3.5-5.0) g/dL Assessment and Plan Assessment: 1. Acute hypoxic respiratory failure requiring mechanical ventilation secondary to pneumonia 2. Sepsis, secondary to pneumonia 3. Paroxysmal atrial fibrillation with RVR 4. Cardiomyopathy, unknown if ischemic or nonischemic, EF 30-35% 5. Abnormal troponins, possible NSTEMI, may be secondary to hypoxia, sepsis, and/or afib with RVR, however can not rule out underlying coronary artery disease 6. Severe pulmonary hypertension 7. Acute kidney injury 8. Hypotension requiring vasopressor support 9. History of asthma 10. Hypothyroidism PLAN: Continue ventilator management per critical care Continue dialysis per nephrology Continue aspirin and atorvastatin Continue IV heparin Transition IV amiodarone to oral dosing Will hold off on beta ada secondary to history of asthma. Further recommendations pending patient's course
[2020-08-23 17:26] LABS: Glucose,Whole Blood 106 mg/dL (75-99)
[2020-08-23] MEDS: ATORVASTATIN 80 MG TAB PO SCH (21:05)
[2020-08-24] MEDS: IPRATROPIUM-ALBUTEROL 3 ML NEB INHALATION SCH ×6 (00:17→18:44)
[2020-08-24] MEDS: AMPICILLIN-SULBACTAM 3 GM in SODIUM CHLORIDE 0.9% 100 ML IVPB SCH (00:27)
[2020-08-24] MEDS: INSULIN ASPART (NovoLOG) 100 UNIT/ML VIAL SQ SCH ×4 (00:42→18:03)
[2020-08-24 00:43] LABS: Glucose,Whole Blood 92 mg/dL (75-99)
--- NOTE | 2020-08-24 02:52 | PN ---
PROGRESS NOTE DATE OF SERVICE: 08/23/2020 REASON FOR FOLLOWUP: Pneumonia and leukocytosis. INTERVAL HISTORY: The patient is currently afebrile. The patient is hemodynamically stable. The patient remains to be intubated on the vent. FiO2 is currently stable at 50%. No pressor support. No purulent secretion through the ET or any diarrhea reported by the nursing staff. PHYSICAL EXAMINATION: On examination, blood pressure 105/58 with a pulse of 64, temperature 98.5. She is 93% on 50% FiO2. General description is a middle-aged female intubated on the vent. RESPIRATORY SYSTEM: Unlabored breathing, decreased breath sounds at the bases. No wheeze. HEART: S1, S2. Regular rate and rhythm. ABDOMEN: Soft, no tenderness. LABS: Hemoglobin 9.2, white count 36.1. BUN of 46, creatinine 3.45. DIAGNOSTIC IMPRESSION AND PLAN: Acute respiratory failure which is multifactorial did have a component of pneumonia. Sputum has been Streptococcus pneumoniae, status post bronchoscopy. Those cultures have been negative. Chest x-ray, no worsening. Patient is covered with Unasyn. Elevated white count, multifactorial, possible steroid effect plus minus oropharyngeal candidiasis. Eraxis was yesterday. White count is slightly down. Will monitor closely. Continue supportive care. MMODL / IJN: [id number] /
[2020-08-24 04:20] LABS: Albumin 2.6 g/dL (3.5-5.0); Calcium 7.1 mg/dL (8.4-10.2); Potassium 3.9 mmol/L (3.5-5.1); Total Bilirubin 1.2 mg/dL (0.2-1.3); Total Protein 6.2 g/dL (6.3-8.2)
[2020-08-24 04:26] LABS: Anisocytosis Slight; HCT 24.3 % (34.0-46.0); MCHC 36.8 g/dL (31.0-37.0); MCV 81.5 fL (80.0-100.0); Mean Platelet Volume 7.9; Platelet Count 366 k/uL (150-450); RBC 2.98 m/uL (3.80-5.40); RDW 16.2 % (11.5-15.5); WBC 29.2 k/uL (3.8-10.6)
[2020-08-24 05:36] LABS: Band Neutrophils % 17 %; Eosinophils # (M) 0.58 k/uL (0-0.7); Metamyelocytes # (M) 1.17 k/uL (0); Metamyelocytes % 4 %; Myelocytes # (M) 0.29 k/uL (0); Myelocytes % 1 %; Neutrophils % (M) 76 %; Nucleated Red Blood Cells 0 /100 WBC (0-0); Total Cells Counted 200
[2020-08-24 05:38] LABS: Anisocytosis (M) Present; Poikilocytosis (M) Present; Polychromasia Present
[2020-08-24 05:49] LABS: ABG Base Excess -9.3 mmol/L; ABG HCO3 18 mmol/L (21-25); ABG Oxygen Saturation 96.9 % (94-97); ABG PCO2 38 mmHg (35-45); ABG PH 7.27 (7.35-7.45); ABG PO2 93 mmHg (83-108); ABG TCO2 19 mmol/L (19-24)
[2020-08-24 05:51] LABS: Allen Test Performed? no
[2020-08-24 06:00] LABS: Phosphorus 10.8 mg/dL (2.5-4.5)
[2020-08-24] MEDS ORDERED: SODIUM BICARB 8.4% 50 ML SYR (1 MEQ/ML) IV STA (07:36)
[2020-08-24] MEDS: FORMOTEROL FUMARATE 20 MCG/2 ML NEBU INHALATION SCH ×2 (07:42→18:44)
[2020-08-24] MEDS: BUDESONIDE 1 MG/2 ML NEBU INHALATION SCH ×2 (07:42→18:44)
--- NOTE | 2020-08-24 08:17 | XR ---
EXAMINATION TYPE: XR chest 1V portable DATE OF EXAM: 08/24/2020 COMPARISON: Prior chest x-ray 08/23/2020 HISTORY: Shortness of breath, intubated TECHNIQUE: Single frontal view of the chest is obtained. FINDINGS: Endotracheal tube and NG tube are overlying appropriate positions. Patient remains rotated . There is airspace disease present bilaterally. Heart is likely enlarged. Left-sided PICC line is st able, distal tip overlying the left superior vena cava. There is no evident pneumothorax. The left he midiaphragm remains obscured. IMPRESSION: Correlate for edema, pneumonia, ARDS. Difficult to exclude effusion. Marked cardiomegaly .
[2020-08-24] MEDS: APIXABAN 2.5 MG TABLET PO SCH ×2 (08:28→21:25)
[2020-08-24] MEDS: AMIODARONE 200 MG TAB PO SCH ×2 (08:28→21:25)
[2020-08-24] MEDS: ASPIRIN 81 MG PO SCH (08:28)
[2020-08-24] MEDS: LEVOTHYROXINE 100 MCG TAB PO SCH (08:28)
[2020-08-24] MEDS: CHLORHEXIDINE GLUCONATE 15 ML CUP MUCOUS MEM SCH ×2 (08:28→21:25)
[2020-08-24] MEDS: METOPROLOL TARTRATE 25 MG TAB PO SCH ×2 (08:29→21:40)
[2020-08-24] MEDS: PARoxetine 20 MG TAB PO SCH (08:29)
[2020-08-24] MEDS: PANTOPRAZOLE 40 MG/10 ML VIAL IVP SCH (08:29)
[2020-08-24] MEDS: ERGOCALCIFEROL 50,000 UNIT CAP PO SCH (08:30)
[2020-08-24] MEDS: ANIDULAFUNGIN 100 MG in SODIUM CHLORIDE 0.9% 100 ML IVPB SCH (08:56)
--- NOTE | 2020-08-24 09:59 | PN ---
PROGRESS NOTE Mrs. Kim is a 55-year-old female with a history of obstructive sleep apnea, bronchial asthma who presented with evidence of pneumonia and sepsis. She required mechanical ventilation, continues to be intubated at this time. She has continued to be in sinus mechanism with small bursts of atrial fibrillation. She is on oral anticoagulation. She has an an echocardiogram that showed evidence of impairment of ventricular systolic function with an ejection fraction of 35%. No prior estimation of third systolic function is available. It is unclear if this is related to any acute influenza. She continues to be on Eliquis .5 mg twice a day, Lipitor 80 mg daily, metoprolol tartrate 25 mg twice a day. PHYSICAL EXAMINATION: Blood pressure 115/60 with a heart rate in the 70s. LUNGS: Clear anteriorly. HEART: Regular rate and rhythm, S1, S2. No S3 with a systolic murmur. ABDOMEN: Soft, obese. Positive bowel sounds. EXTREMITIES: Trace to 1+ edema. LAB DATA: Revealed a BUN and creatinine of 52 and 4.12, potassium 3.1, sodium 129, hemoglobin of 9. Her phosphorus 10.8. IMPRESSION: 1. Respiratory failure with pneumonia. 2. Paroxysmal atrial fibrillation. 3. Septic shock. 4. Acute renal injury on dialysis. 5. History of obstructive sleep apnea. 6. History of diabetes. RECOMMENDATION: From the cardiac standpoint, will continue current therapy. Continue supportive care. Depending on her progress, further recommendation will be given. MMODL / IJN: [id number] /
[2020-08-24 12:00] LABS: Glucose,Whole Blood 87 mg/dL (75-99)
--- NOTE | 2020-08-24 13:39 | P.PN ---
Subjective Patient is seen in follow-up for acute kidney injury. She is currently hemodialysis dependent. Tolerated 3 L ultrafiltration this morning. She is intubated, on 50% FiO2. Not on vasopressors. Oliguric. Vital signs are stable. General: The patient appeared well nourished and normally developed. HEENT: Head exam is unremarkable. Intubated. LUNGS: Breath sounds decreased. HEART: Rate and Rhythm are regular. ABDOMEN: Soft, obese. EXTREMITITES: 2+ edema. Objective - Vital Signs Vital signs: Vital Signs Temp 99 F 08/24/20 12:00 Pulse 69 08/24/20 12:00 Resp 16 08/24/20 12:00 BP 118/73 08/24/20 12:00 Pulse Ox 90 L 08/24/20 12:00 Intake & Output 08/23/20 08/24/20 08/24/20 18:59 06:59 18:59 Intake Total 1126 1425.941 188 Output Total 75 60 5 Balance 1051 1365.941 183 Weight 164.5 kg 164.5 kg Intake: IV 586 943 140 0.9 515 900 125 Pressure Bag 71 43 15 Intake, IV Titration 300 296.941 Amount propofoL 1,000 mg In 300 296.941 Empty Bag 1 bag @ Titrate IV .Q0M [facility] Rx#: [id number] Tube Feeding 180 156 48 Other 60 30 Output: Urine 75 60 5 Uretheral (Peterson) 5 Other: Voiding Method Indwelling Catheter Indwelling Catheter Indwelling Catheter ABP, PAP, CO, CI - Last Documented Arterial Blood Pressure 105/50 - Labs CBC & Chem 7: 08/24/20 03:50 08/24/20 03:50 Labs: Abnormal Lab Results - Last 24 Hours (Table) 08/23/20 08/24/20 08/24/20 Range/Units 17:23 03:50 03:50 WBC 29.2 H (3.8-10.6) k/uL RBC 2.98 L (3.80-5.40) m/uL Hgb 9.0 L (11.4-16.0) gm/dL Hct 24.3 L (34.0-46.0) % RDW 16.2 H (11.5-15.5) % Neutrophils # (Manual) 27.10 H (1.3-7.7) k/uL Metamyelocytes # (Man) 1.17 H (0) k/uL Myelocytes # (Manual) 0.29 H (0) k/uL ABG pH (7.35-7.45) ABG HCO3 (21-25) mmol/L Sodium 129 L (137-145) mmol/L Chloride 97 L (98-107) mmol/L Carbon Dioxide 15 L (22-30) mmol/L BUN 52 H (7-17) mg/dL Creatinine 4.12 H (0.52-1.04) mg/dL POC Glucose (mg/dL) 106 H (75-99) mg/dL Calcium 7.1 L (8.4-10.2) mg/dL Phosphorus 10.8 H* (2.5-4.5) mg/dL AST 70 H (14-36) U/L Alkaline Phosphatase 217 H (38-126) U/L Total Protein 6.2 L (6.3-8.2) g/dL Albumin 2.6 L (3.5-5.0) g/dL 08/24/20 Range/Units 05:47 WBC (3.8-10.6) k/uL RBC (3.80-5.40) m/uL Hgb (11.4-16.0) gm/dL Hct (34.0-46.0) % RDW (11.5-15.5) % Neutrophils # (Manual) (1.3-7.7) k/uL Metamyelocytes # (Man) (0) k/uL Myelocytes # (Manual) (0) k/uL ABG pH 7.27 L (7.35-7.45) ABG HCO3 18 L (21-25) mmol/L Sodium (137-145) mmol/L Chloride (98-107) mmol/L Carbon Dioxide (22-30) mmol/L BUN (7-17) mg/dL Creatinine (0.52-1.04) mg/dL POC Glucose (mg/dL) (75-99) mg/dL Calcium (8.4-10.2) mg/dL Phosphorus (2.5-4.5) mg/dL AST (14-36) U/L Alkaline Phosphatase (38-126) U/L Total Protein (6.3-8.2) g/dL Albumin (3.5-5.0) g/dL Assessment and Plan Plan: Assessment: 1. Acute kidney injury, currently hemodialysis dependent. Etiology is ATN secondary to septic shock. Oliguric. Baseline creatinine near 1. 2. Septic shock secondary to pneumonia. Maintained on antibiotics. Off vasopressors. 3. Volume overload. 4. Metabolic acidosis secondary to acute kidney injury. Status post IV bicarbonate this morning. Expect further improvement postdialysis. 5. Hypervolemic hyponatremia. 6. Hyperphosphatemia secondary to acute kidney injury. Plan: Hemodialysis tomorrow. Will add phosphate binder once feeding started. Lasix 80 mg IV once this afternoon. Continue to monitor renal function and urine output.
[2020-08-24 14:33] LABS: Albumin 2.6 g/dL (3.5-5.0); Bilirubin, Conjugated 0.3 mg/dL (0.0-0.3); Bilirubin, Delta 0.7 mg/dL (0.0-0.2); Bilirubin,Unconjugated 0.2 mg/dL (0.0-1.1); Total Bilirubin 1.2 mg/dL (0.2-1.3); Total Protein 6.1 g/dL (6.3-8.2)
--- NOTE | 2020-08-24 14:59 | P.PN ---
Subjective Progress Note Date: 08/24/20 This is a 55-year-old female patient was hospitalized on 08/16/2020 with an acute left lower lobe pneumonia sepsis. Note that the patient has undergone a bronchoscopy on 08/17/2024 mucous plugs. The sepsis and the left lower lobe pneumonia was felt to be related to Streptococcus pneumonia. The Streptococcus pneumoniae was cultured in the sputum sample. Blood cultures of been negative. The patient was intubated, extubated on the same daily intubated has is that she has been on a mechanical ventilator. At this point in time, the patient is on a assist-control mode of using the VAC plus mode. The patient is respiratory rate of 350 tidal volume of 350 FiO2 of 50 and PEEP of 8. The in spiratory time is at 0.9 seconds. The blood gases from today shows a pH of 7.27 with a pCO2 of 38 and pO2 93. The chest x-ray from today showing pulmonary edema along with cardiomegaly. There is increased interstitial infiltrates bilaterally in addition to her left lower lobe consolidation/airspace disease. ET tube remains in a good location. The patient is sedated with propofol which is running at 30 mics micrograms per kilogram per minute. The patient during the course of her treatment, developed an acute kidney injury, currently she is on hemodialysis last dialysis being on 08/22/2020 with a total of 3.5 L of fluid was ultrafiltrated. The patient is on growth spectrum antibiotics i ncluding a combination of IV Unasyn and the patient is also on IV Eraxis. In terms of hemodynamics, the patient is still pressor dependent. The neck fluid balance has been negative as the patient has been undergoing dialysis with ultrafiltration. The chest x-ray showing a left lower lobe consolidation With adequate positioning of the ET tube. The patient has an orogastric tube for enteral feeding and nutritional support and the patient also has a PICC line in the left upper extremity. The echo of the heart showed a moderate concentric LVH with an ejection fraction of 30-35%. There was mild aortic sclerosis and severe pulmonary hypertension with a PA pressure of 66 mmHg. The patient has been having also approximately atrial fibrillation. She is currently on oral amiodarone. She is also on metoprolol for rate control. She was on IV heparin was discontinued due to nosebleed subsequently the patient was started on oral antibiotic ventilation with Eliquis the. The patient's other comorbidities include obstructive sleep apnea and the patient has not been completely compliant to CPAP therapy, she has been morbidly obese, hypothyroid and history of bronchial asthma. The plan for today still undergo another session of hemodialysis with ultrafiltration. The white cell count remains elevated yet is down from yesterday is down to 29.2. Objective - Vital Signs Vital signs: Vital Signs Temp 98.0 F 08/24/20 13:53 Pulse 66 08/24/20 14:00 Resp 22 08/24/20 14:00 BP 118/73 08/24/20 14:00 Pulse Ox 92 L 08/24/20 14:00 Intake & Output 08/23/20 08/24/20 08/24/20 18:59 06:59 18:59 Intake Total 1126 1425.941 571 Output Total 75 60 3025 Balance 1051 1365.941 -2454 Weight 164.5 kg 164.5 kg Intake: IV 586 943 179 0.9 515 900 155 Pressure Bag 71 43 24 Intake, IV Titration 300 296.941 200 Amount propofoL 1,000 mg In 300 296.941 200 Empty Bag 1 bag @ Titrate IV .Q0M [facility] Rx#: [id number] Tube Feeding 180 156 192 Other 60 30 Output: Urine 75 60 25 Uretheral (Peterson) 5 Hemodialysis 3000 Other: Voiding Method Indwelling Catheter Indwelling Catheter Indwelling Catheter ABP, PAP, CO, CI - Last Documented Arterial Blood Pressure 108/54 - Exam Gen. appearance the patient is intubated, comfortable mechanical ventilator status the mechanical ventilator on assist control mode and orogastric and orotracheal tube are both in place. Patient is morbidly obese. Head exam was generally normal. There was no scleral icterus or corneal arcus. Mucous membranes were moist. Neck was supple and without jugular venous distension, thyromegaly, or carotid bruits. Carotids were easily palpable bilaterally. There was no adenopathy. My normal lungs breath sounds are quite diminished in the left lung base compared to the right. Cardiac exam revealed the PMI to be normally situated and sized. The rhythm was regular and no extrasystoles were noted during several minutes of auscultation. The first and second heart sounds were normal and physiologic splitting of the second heart sound was noted. There were no murmurs, rubs, clicks, or gallops. Abdominal exam revealed normal bowel sounds. The abdomen was soft, non-tender, and without masses, organomegaly, or appreciable enlargement of the abdominal aorta. Extremities revealed trace edema and there is clubbing and the patient has a PICC line in left upper extremity. The patient has edema in all 4 extremities and the patient has a Artline catheter in the right brachial artery. - Labs CBC & Chem 7: 08/24/20 03:50 08/24/20 03:50 Labs: Abnormal Lab Results - Last 24 Hours (Table) 08/23/20 08/24/20 08/24/20 Range/Units 17:23 03:50 03:50 WBC 29.2 H (3.8-10.6) k/uL RBC 2.98 L (3.80-5.40) m/uL Hgb 9.0 L (11.4-16.0) gm/dL Hct 24.3 L (34.0-46.0) % RDW 16.2 H (11.5-15.5) % Neutrophils # (Manual) 27.10 H (1.3-7.7) k/uL Metamyelocytes # (Man) 1.17 H (0) k/uL Myelocytes # (Manual) 0.29 H (0) k/uL ABG pH (7.35-7.45) ABG HCO3 (21-25) mmol/L Sodium 129 L (137-145) mmol/L Chloride 97 L (98-107) mmol/L Carbon Dioxide 15 L (22-30) mmol/L BUN 52 H (7-17) mg/dL Creatinine 4.12 H (0.52-1.04) mg/dL POC Glucose (mg/dL) 106 H (75-99) mg/dL Calcium 7.1 L (8.4-10.2) mg/dL Phosphorus 10.8 H* (2.5-4.5) mg/dL Delta Bilirubin (0.0-0.2) mg/dL AST 70 H (14-36) U/L Alkaline Phosphatase 217 H (38-126) U/L Total Protein 6.2 L (6.3-8.2) g/dL Albumin 2.6 L (3.5-5.0) g/dL 08/24/20 08/24/20 Range/Units 03:50 05:47 WBC (3.8-10.6) k/uL RBC (3.80-5.40) m/uL Hgb (11.4-16.0) gm/dL Hct (34.0-46.0) % RDW (11.5-15.5) % Neutrophils # (Manual) (1.3-7.7) k/uL Metamyelocytes # (Man) (0) k/uL Myelocytes # (Manual) (0) k/uL ABG pH 7.27 L (7.35-7.45) ABG HCO3 18 L (21-25) mmol/L Sodium (137-145) mmol/L Chloride (98-107) mmol/L Carbon Dioxide (22-30) mmol/L BUN (7-17) mg/dL Creatinine (0.52-1.04) mg/dL POC Glucose (mg/dL) (75-99) mg/dL Calcium (8.4-10.2) mg/dL Phosphorus (2.5-4.5) mg/dL Delta Bilirubin 0.7 H (0.0-0.2) mg/dL AST 71 H (14-36) U/L Alkaline Phosphatase 221 H (38-126) U/L Total Protein 6.1 L (6.3-8.2) g/dL Albumin 2.6 L (3.5-5.0) g/dL Assessment and Plan Plan: 1 acute hypoxic respiratory failure secondary to left lower lobe pneumonia/sepsis. The patient was admitted on 08/16/2020 and the patient remains intubated and mechanically ventilated. The chest x-ray is showing some increased interstitial edema and cardiomegaly and there is a component of CHF and fluid overload. The chest x-ray was reviewed. Blood gas was reviewed. This is suspected as the patient has impaired left ventricle ejection fraction and there a she is also has been a positive fluid balance. 2 septic shock secondary to the left lower lobe pneumonia secondary to pneumococcus/strep pneumonia 3 acute kidney injury currently hemodialysis dependent. the patient developed an acute kidney injury secondary to pneumonia/sepsis. 4 morbid obesity 5 history of bronchial asthma 6 history obstructive sleep apnea noncompliant to CPAP therapy, would possibly the pickwickian syndrome 7 diabetes mellitus type 2, currently on a sliding scale coverage 8 hypothyroidism 9 CHF with impaired ejection fraction of 30-35%. This is considered to be a systolic heart failure, could be sepsis induced and the patient has a component of severe pulmonary hypertension. 10 persistent leukocytosis most likely improved compared to yesterday 11 non-anion gap metabolic acidosis Plan Condition is critical for now Continue ventilator support. Necessity ventilator changes were done. I increased the tidal volume of 450. I also dropped a respiratory rate down to 28 and I'm going to allow the patient to determine her own minute ventilation. Meanwhile, the patient is acidotic and the patient would benefit from 2 ampules of sodium bicarbonate a total of 100 mEq there will be given right now. Proceed with dialysis and ultrafiltration. The goal is to remove at least 3 L Kept on IV fluids to KVO Continue sedation and give the patient sedation holiday Continue enteral feeding for nutritional support with vital high protein Continue the current antibiotic coverage included a combination of Unasyn and Eraxis condition is critical we'll continue to follow make further recommendations based on her progress. This evaluation was done and more than 30 minutes. This is a critically care evaluation. Time with Patient: Greater than 30
[2020-08-24] MEDS ORDERED: propofoL 100 ML IV ONE (17:01)
[2020-08-24] MEDS ORDERED: FUROSEMIDE 10 MG/ML 10 ML VIAL IV STA (17:52)
[2020-08-24 18:04] LABS: Glucose,Whole Blood 106 mg/dL (75-99)
[2020-08-24] MEDS: CALCIUM ACETATE 667 MG TAB PO SCH (18:06)
--- NOTE | 2020-08-24 18:40 | PN ---
PROGRESS NOTE DATE OF SERVICE: 08/24/2020 REASON FOR FOLLOW UP: Strep pneumonia. INTERVAL COURSE: The patient is currently afebrile. The patient is hemodynamically stable. FiO2 is currently 50%. No significant purulent secretions thru ET tube. per the nursing staff. The patient unable to provide any history. PHYSICAL EXAMINATION: Blood pressure 128/73, pulse of 69, temperature 98. She is 93% on 50% FiO2. General description is a middle-aged female lying in bed in no distress. Respiratory system: Unlabored breathing, decreased breath sounds in the bases. No wheeze. HEART: S1, S2. Regular rate and rhythm. Abdomen soft, no tenderness. LABS: Hemoglobin 9.4, white count 9.2 with a BUN of 52, creatinine is 1.12. Bronchoscopy culture negative. DIAGNOSTIC IMPRESSION AND PLAN: 1. Patient with acute respiratory failure which is multifactorial in this patient who complains of pneumonia likely aspiration etiology. Sputum has been strep, pneumo. The patient is covered with Unasyn. 2. Patient with elevated white count, multifactorial with possible steroid effect plus oropharyngeal candidiasis. Has been started on Eraxis. White count showing a downward trend. To continue to monitor clinical course closely. MMODL / IJN: [id number] /
[2020-08-24] MEDS: ATORVASTATIN 80 MG TAB PO SCH (21:25)
[2020-08-24] MEDS: SODIUM BICARBONATE TAB 650 MG TAB PO SCH (21:25)
[2020-08-25 00:04] LABS: Glucose,Whole Blood 120 mg/dL (75-99)
[2020-08-25] MEDS: AMPICILLIN-SULBACTAM 3 GM in SODIUM CHLORIDE 0.9% 100 ML IVPB SCH ×2 (00:04→13:59)
[2020-08-25] MEDS: IPRATROPIUM-ALBUTEROL 3 ML NEB INHALATION SCH ×7 (00:13→23:53)
[2020-08-25] MEDS: INSULIN ASPART (NovoLOG) 100 UNIT/ML VIAL SQ SCH ×5 (01:00→23:54)
[2020-08-25 05:09] LABS: Albumin 2.8 g/dL (3.5-5.0); Calcium 7.9 mg/dL (8.4-10.2); Total Protein 7.1 g/dL (6.3-8.2)
[2020-08-25 05:22] LABS: Anisocytosis Slight; HCT 23.3 % (34.0-46.0); HGB 8.9 gm/dL (11.4-16.0); MCH 30.8 pg (25.0-35.0); MCV 80.9 fL (80.0-100.0); Mean Platelet Volume 8.2; Platelet Count 372 k/uL (150-450); RBC 2.88 m/uL (3.80-5.40); RDW 16.3 % (11.5-15.5); WBC 22.2 k/uL (3.8-10.6)
[2020-08-25 05:25] LABS: MCHC 38.1 g/dL (31.0-37.0)
[2020-08-25 05:30] LABS: Potassium 4.7 mmol/L (3.5-5.1)
[2020-08-25 05:31] LABS: Phosphorus 9.8 mg/dL (2.5-4.5)
[2020-08-25 05:43] LABS: ABG Base Excess -4.8 mmol/L; ABG HCO3 21 mmol/L (21-25); ABG Oxygen Saturation 98.4 % (94-97); ABG PCO2 36 mmHg (35-45); ABG PH 7.37 (7.35-7.45); ABG PO2 104 mmHg (83-108); ABG TCO2 22 mmol/L (19-24); Allen Test Performed? Yes
[2020-08-25] MEDS: LEVOTHYROXINE 100 MCG TAB PO SCH (06:16)
[2020-08-25 06:32] LABS: Glucose,Whole Blood 119 mg/dL (75-99)
[2020-08-25 06:45] LABS: Band Neutrophils % 16 %; Eosinophils # (M) 0.89 k/uL (0-0.7); Large Platelets Present; Lymphocytes # (M) 1.11 k/uL (1.0-4.8); Metamyelocytes # (M) 0.22 k/uL (0); Metamyelocytes % 1 %; Monocytes # (M) 0.67 k/uL (0-1.0); Neutrophils % (M) 72 %; Nucleated Red Blood Cells 0 /100 WBC (0-0); Total Cells Counted 200
[2020-08-25 06:46] LABS: Polychromasia Present; Tear Drop Cells Present; Toxic Granulation Present
[2020-08-25] MEDS: CALCIUM ACETATE 667 MG TAB PO SCH ×3 (07:00→16:26)
[2020-08-25] MEDS: BUDESONIDE 1 MG/2 ML NEBU INHALATION SCH ×2 (07:42→19:57)
[2020-08-25] MEDS: FORMOTEROL FUMARATE 20 MCG/2 ML NEBU INHALATION SCH ×2 (07:42→19:57)
[2020-08-25] MEDS: SODIUM BICARBONATE TAB 650 MG TAB PO SCH ×2 (08:26→20:52)
[2020-08-25] MEDS: CHLORHEXIDINE GLUCONATE 15 ML CUP MUCOUS MEM SCH ×2 (08:26→20:52)
[2020-08-25] MEDS: PANTOPRAZOLE 40 MG/10 ML VIAL IVP SCH (08:26)
[2020-08-25] MEDS: ASPIRIN 81 MG PO SCH (08:26)
[2020-08-25] MEDS: APIXABAN 2.5 MG TABLET PO SCH ×2 (08:27→20:52)
[2020-08-25] MEDS: AMIODARONE 200 MG TAB PO SCH ×2 (08:27→20:52)
[2020-08-25] MEDS: ANIDULAFUNGIN 100 MG in SODIUM CHLORIDE 0.9% 100 ML IVPB SCH (08:27)
[2020-08-25] MEDS: ERGOCALCIFEROL 50,000 UNIT CAP PO SCH (08:27)
[2020-08-25] MEDS: PARoxetine 20 MG TAB PO SCH (08:27)
--- NOTE | 2020-08-25 08:42 | XR ---
EXAMINATION TYPE: XR chest 1V portable DATE OF EXAM: 08/25/2020 COMPARISON: 08/24/2020 HISTORY: Shortness of breath FINDINGS: There are bilateral pleural effusions with cardiomegaly and bibasilar infiltrate. There is a diffuse interstitial pattern. ET and NG tube stable. Left-sided central line stable. IMPRESSION: 1. Diffuse pleural-parenchymal changes are stable could be on the basis of diffuse pneumonia or pulmo nary edema correlate clinically. ARDS in the differential diagnosis.
--- NOTE | 2020-08-25 09:52 | PN ---
PROGRESS NOTE Mrs. Kim is a 55-year-old female who has history of obstructive sleep apnea, presented with pneumonia and sepsis, following mechanical ventilation. She continued to be intubated. She had episode of atrial fibrillation continued to be in sinus mechanism at this time. She has evidence of cardiomyopathy of unclear etiology unknown duration. She has done reasonably well during the night. Hemodynamically, she is stable. She had no further episode of atrial fibrillation, but her urine output has been on the lower side. She is not requiring pressors. She continues to be on Eliquis 2.5 mg twice a day, aspirin once a day, Lipitor 80 mg daily, metoprolol tartrate 25 mg twice a day. PHYSICAL EXAMINATION: Blood pressure 108/50 with a heart rate in the 70s. LUNGS: No crackles or wheezes anteriorly. HEART: Regular rate and rhythm, S1, S2. No S3. No rub appreciated. ABDOMEN: Soft, positive bowel sounds. EXTREMITIES: No significant edema. LAB DATA: Revealed hemoglobin of 8.9, white blood cell 22.2. BUN and creatinine of 45 and 3.26, which is improved compared to yesterday. IMPRESSION: 1. Respiratory failure with pneumonia, remains intubated. 2. Septic shock. 3. Acute renal injury on dialysis. 4. Obesity. 5. Paroxysmal atrial fibrillation. 6. Cardiomyopathy of unknown duration or etiology. RECOMMENDATION: From the cardiac standpoint, will continue on the present dose of the beta ada and the amiodarone. Will follow her blood pressure and if tolerated, hydralazine will be added to her regimen and will continue anticoagulation. MMODL / IJN: [id number] /
[2020-08-25 12:12] LABS: Glucose,Whole Blood 129 mg/dL (75-99)
[2020-08-25] MEDS: METOPROLOL TARTRATE 25 MG TAB PO SCH ×2 (13:56→20:52)
--- NOTE | 2020-08-25 14:01 | P.PN ---
Subjective Progress Note Date: 08/25/20 This is a 55-year-old female patient was hospitalized on 08/16/2020 with an acute left lower lobe pneumonia sepsis. Note that the patient has undergone a bronchoscopy on 08/17/2024 mucous plugs. The sepsis and the left lower lobe pneumonia was felt to be related to Streptococcus pneumonia. The Streptococcus pneumoniae was cultured in the sputum sample. Blood cultures of been negative. The patient was intubated, extubated on the same daily intubated has is that she has been on a mechanical ventilator. At this point in time, the patient is on a assist-control mode of using the VAC plus mode. The patient is respiratory rate of 350 tidal volume of 350 FiO2 of 50 and PEEP of 8. The i nspiratory time is at 0.9 seconds. The blood gases from today shows a pH of 7.27 with a pCO2 of 38 and pO2 93. The chest x-ray from today showing pulmonary edema along with cardiomegaly. There is increased interstitial infiltrates bilaterally in addition to her left lower lobe consolidation/airspace disease. ET tube remains in a good location. The patient is sedated with propofol which is running at 30 mics micrograms per kilogram per minute. The patient during the course of her treatment, developed an acute kidney injury, currently she is on hemodialysis last dialysis being on 08/22/2020 with a total of 3.5 L of fluid was ultrafiltrated. The patient is on growth spectrum antibiotics including a combination of IV Unasyn and the patient is also on IV Eraxis. In terms of hemodynamics, the patient is still pressor dependent. The neck fluid balance has been negative as the patient has been undergoing dialysis with ultrafiltration. The chest x-ray showing a left lower lobe consolidation With adequate positioning of the ET tube. The patient has an orogastric tube for enteral feeding and nutritional support and the patient also has a PICC line in the left upper extremity. The echo of the heart showed a moderate concentric LVH with an ejection fraction of 30-35%. There was mild aortic sclerosis and severe pulmonary hypertension with a PA pressure of 66 mmHg. The patient has been having also approximately atrial fibrillation. She is currently on oral amiodarone. She is also on metoprolol for rate control. She was on IV heparin was discontinued due to nosebleed subsequently the patient was started on oral anticoagulation with Eliquis. The patient's other comorbidities include obstructive sleep apnea and the patient has not been completely compliant to CPAP therapy, she has been morbidly obese, hypothyroid and history of bronchial asthma. The plan for today still undergo another session of hemodialysis with ultrafiltration. The white cell count remains elevated yet is down from yesterday is down to 29.2. On 08/25/2020 the patient is being seen for a follow-up. The patient remains on a mechanical ventilator. On today's evaluation, the patient is an assist- control mode at a rate of 26 with a tidal volume of 450 and FiO2 of 50% with a PEEP of 8. Blood gases from today showed a pH of 7.34 with a pCO2 of 36 and pO2 of 104 and this was on FiO2 of 50%. The patient is on propofol for sedation running at 55 mg per KG per minute. The patient is on normal saline at the rate of 20 mL an hour and the patient is also on vital high protein at the rate of 36 mL for enteral feeding and nutritional support. The patient underwent hemodialysis yesterday without a total of 3 L of fluid was removed. Urine output is low in the order of 15-20 mL. The chest x-ray still showing diffuse bilateral pulmonary infiltrates and CHF along with cardiomegaly anterolaterally unchanged compared to yesterday. The patient is afebrile. White cell count is down to 22. Hemoglobin stable at 8.9. Rest of the blood work shows a BUN of 45, creatinine 3.2, and the patient is a mild anion gap metabolic acidosis with a serum bicarb of 18. The triglyceride level came back at 1492. The patient's cardiac rhythm is sinus. The patient remains on antibiotic ventilation with Eliquis. Objective - Vital Signs Vital signs: Vital Signs Temp 99.4 F 08/24/20 20:00 Pulse 73 08/25/20 03:49 Resp 29 H 08/25/20 03:00 BP 108/55 08/25/20 03:00 Pulse Ox 95 08/25/20 03:00 Intake & Output 08/24/20 08/25/20 08/25/20 18:59 06:59 18:59 Intake Total 971 701 Output Total 3025 75 Balance -2053 626 Weight 164.5 kg 163.7 kg Intake: IV 231 117 0.9 195 90 Pressure Bag 36 27 Intake, IV Titration 338 200 Amount propofoL 1,000 mg In 338 200 Empty Bag 1 bag @ Titrate IV .Q0M [facility] Rx#: [id number] Tube Feeding 372 324 Other 30 60 Output: Urine 25 75 Hemodialysis 3000 Other: Voiding Method Indwelling Catheter Indwelling Catheter ABP, PAP, CO, CI - Last Documented Arterial Blood Pressure 120/60 - Exam Gen. appearance the patient is intubated, comfortable mechanical ventilator status the mechanical ventilator on assist control mode and orogastric and orotracheal tube are both in place. Patient is morbidly obese. Head exam was generally normal. There was no scleral icterus or corneal arcus. Mucous membranes were moist. Neck was supple and without jugular venous distension, thyromegaly, or carotid bruits. Carotids were easily palpable bilaterally. There was no adenopathy. My normal lungs breath sounds are quite diminished in the left lung base compare d to the right. Cardiac exam revealed the PMI to be normally situated and sized. The rhythm was regular and no extrasystoles were noted during several minutes of auscultation. The first and second heart sounds were normal and physiologic splitting of the second heart sound was noted. There were no murmurs, rubs, clicks, or gallops. Abdominal exam revealed normal bowel sounds. The abdomen was soft, non-tender, and without masses, organomegaly, or appreciable enlargement of the abdominal aorta. Extremities revealed trace edema and there is clubbing and the patient has a PICC line in left upper extremity. The patient has edema in all 4 extremities and the patient has a Artline catheter in the right brachial artery. Neurologically the patient is sedated. The patient is calm and comfortable c igarettes with the mechanical ventilator. - Labs CBC & Chem 7: 08/25/20 04:31 08/25/20 04:31 Labs: Abnormal Lab Results - Last 24 Hours (Table) 08/24/20 08/24/20 08/25/20 Range/Units 03:50 18:02 00:02 WBC (3.8-10.6) k/uL RBC (3.80-5.40) m/uL Hgb (11.4-16.0) gm/dL Hct (34.0-46.0) % MCHC (31.0-37.0) g/dL RDW (11.5-15.5) % Neutrophils # (Manual) (1.3-7.7) k/uL Eosinophils # (Manual) (0-0.7) k/uL Metamyelocytes # (Man) (0) k/uL ABG O2 Saturation (94-97) % Sodium (137-145) mmol/L Carbon Dioxide (22-30) mmol/L BUN (7-17) mg/dL Creatinine (0.52-1.04) mg/dL Glucose (74-99) mg/dL POC Glucose (mg/dL) 106 H 120 H (75-99) mg/dL Calcium (8.4-10.2) mg/dL Phosphorus (2.5-4.5) mg/dL Delta Bilirubin 0.7 H (0.0-0.2) mg/dL AST 71 H (14-36) U/L Alkaline Phosphatase 221 H (38-126) U/L Total Protein 6.1 L (6.3-8.2) g/dL Albumin 2.6 L (3.5-5.0) g/dL 08/25/20 08/25/20 08/25/20 Range/Units 04:31 04:31 05:35 WBC 22.2 H (3.8-10.6) k/uL RBC 2.88 L (3.80-5.40) m/uL Hgb 8.9 L (11.4-16.0) gm/dL Hct 23.3 L (34.0-46.0) % MCHC 38.1 H (31.0-37.0) g/dL RDW 16.3 H (11.5-15.5) % Neutrophils # (Manual) 19.50 H (1.3-7.7) k/uL Eosinophils # (Manual) 0.89 H (0-0.7) k/uL Metamyelocytes # (Man) 0.22 H (0) k/uL ABG O2 Saturation 98.4 H (94-97) % Sodium 132 L (137-145) mmol/L Carbon Dioxide 18 L (22-30) mmol/L BUN 45 H (7-17) mg/dL Creatinine 3.26 H (0.52-1.04) mg/dL Glucose 102 H (74-99) mg/dL POC Glucose (mg/dL) (75-99) mg/dL Calcium 7.9 L (8.4-10.2) mg/dL Phosphorus 9.8 H* (2.5-4.5) mg/dL Delta Bilirubin (0.0-0.2) mg/dL AST 79 H (14-36) U/L Alkaline Phosphatase 254 H (38-126) U/L Total Protein (6.3-8.2) g/dL Albumin 2.8 L (3.5-5.0) g/dL 08/25/20 Range/Units 06:30 WBC (3.8-10.6) k/uL RBC (3.80-5.40) m/uL Hgb (11.4-16.0) gm/dL Hct (34.0-46.0) % MCHC (31.0-37.0) g/dL RDW (11.5-15.5) % Neutrophils # (Manual) (1.3-7.7) k/uL Eosinophils # (Manual) (0-0.7) k/uL Metamyelocytes # (Man) (0) k/uL ABG O2 Saturation (94-97) % Sodium (137-145) mmol/L Carbon Dioxide (22-30) mmol/L BUN (7-17) mg/dL Creatinine (0.52-1.04) mg/dL Glucose (74-99) mg/dL POC Glucose (mg/dL) 119 H (75-99) mg/dL Calcium (8.4-10.2) mg/dL Phosphorus (2.5-4.5) mg/dL Delta Bilirubin (0.0-0.2) mg/dL AST (14-36) U/L Alkaline Phosphatase (38-126) U/L Total Protein (6.3-8.2) g/dL Albumin (3.5-5.0) g/dL Assessment and Plan Plan: 1 acute hypoxic respiratory failure secondary to left lower lobe pneumonia/sepsis. The patient was admitted on 08/16/2020 and the patient remains intubated and mechanically ventilated. The chest x-ray is showing some increased interstitial edema and cardiomegaly and there is a component of CHF and fluid overload. The chest x-ray was reviewed. Blood gas was reviewed. This is suspected as the patient has impaired left ventricle ejection fraction and there a she is also has been a positive fluid balance. The patient undergoing daily dialysis with ultrafiltration. The patient underwent ultrafiltration of 3 L yesterday and the same will be done today. There is some improvement in oxygenation. Acid base status is also improved on today's blood gas. The patient remains intubated on a mechanical ventilator still sedated with propofol. 2 septic shock secondary to the left lower lobe pneumonia secondary to pneumococcus/strep pneumonia, currently on no pressors and the patient is completing a course of IV Unasyn 3 acute kidney injury currently hemodialysis dependent. the patient developed an acute kidney injury secondary to pneumonia/sepsis. The patient is requiring daily hemodialysis. Dialysis with ultrafiltration was done yesterday and seemed to be done today. 4 morbid obesity 5 history of bronchial asthma 6 history obstructive sleep apnea noncompliant to CPAP therapy, would possibly the pickwickian syndrome 7 diabetes mellitus type 2, currently on a sliding scale coverage 8 hypothyroidism 9 CHF with impaired ejection fraction of 30-35%. This is considered to be a systolic heart failure, could be sepsis induced and the patient has a component of severe pulmonary hypertension. 10 persistent leukocytosis most likely improved compared to yesterday 11 non-anion gap metabolic acidosis 12 paroxysmal atrial fibrillation current rhythm is sinus 13 hypertriglyceridemia secondary to propofol infusion. Plan Continue ventilator support Drop the FiO2 down to 40% We'll may be able to drop the PEEP down to 6. The saturation remains above 90% Dialysis with ultrafiltration will be done today. The patient continues to show signs of fluid overload and significant edema in all 4 extremities. The chest x-ray continues to be quite wet on today's evaluation. Continue antibiotics Monitor the white cell count Continue enteral feeding for nutritional support The triglyceride level is elevated. The patient will be started on Precedex and the patient will be gradually taken off the propofol. Condition is critical we'll continue to follow make further recommendations based on her progress. Critically care management was done more than 30 minutes. Time with Patient: Greater than 30
--- NOTE | 2020-08-25 14:16 | P.PN ---
Subjective Patient is seen in follow-up for acute kidney injury. She is currently hemodialysis dependent. Tolerating dialysis well. She is intubated, on 40% FiO2. Not on vasopressors. Receiving tube feeding. Urine output 10-20 mL an hour. Vital signs are stable. General: The patient appeared well nourished and normally developed. HEENT: Head exam is unremarkable. Intubated. LUNGS: Breath sounds decreased. HEART: Rate and Rhythm are regular. ABDOMEN: Soft, obese. EXTREMITITES: 2+ edema. Objective - Vital Signs Vital signs: Vital Signs Temp 98.2 F 08/25/20 12:00 Pulse 76 08/25/20 13:00 Resp 22 08/25/20 13:00 BP 117/61 08/25/20 13:00 Pulse Ox 95 08/25/20 13:00 Intake & Output 08/24/20 08/25/20 08/25/20 18:59 06:59 18:59 Intake Total 971 701 713 Output Total 3025 75 105 Balance -2054 626 608 Weight 164.5 kg 163.7 kg Intake: IV 231 117 63 0.9 195 90 60 Pressure Bag 36 27 3 Intake, IV Titration 338 200 200 Amount propofoL 1,000 mg In 338 200 200 Empty Bag 1 bag @ Titrate IV .Q0M [facility] Rx#: [id number] Tube Feeding 372 324 360 Other 30 60 90 Output: Urine 25 75 105 Hemodialysis 3000 Other: Voiding Method Indwelling Catheter Indwelling Catheter Indwelling Catheter ABP, PAP, CO, CI - Last Documented Arterial Blood Pressure 120/60 - Labs CBC & Chem 7: 08/25/20 04:31 08/25/20 04:31 Labs: Abnormal Lab Results - Last 24 Hours (Table) 08/24/20 08/24/20 08/25/20 Range/Units 03:50 18:02 00:02 WBC (3.8-10.6) k/uL RBC (3.80-5.40) m/uL Hgb (11.4-16.0) gm/dL Hct (34.0-46.0) % MCHC (31.0-37.0) g/dL RDW (11.5-15.5) % Neutrophils # (Manual) (1.3-7.7) k/uL Eosinophils # (Manual) (0-0.7) k/uL Metamyelocytes # (Man) (0) k/uL ABG O2 Saturation (94-97) % Sodium (137-145) mmol/L Carbon Dioxide (22-30) mmol/L BUN (7-17) mg/dL Creatinine (0.52-1.04) mg/dL Glucose (74-99) mg/dL POC Glucose (mg/dL) 106 H 120 H (75-99) mg/dL Calcium (8.4-10.2) mg/dL Phosphorus (2.5-4.5) mg/dL Delta Bilirubin 0.7 H (0.0-0.2) mg/dL AST 71 H (14-36) U/L Alkaline Phosphatase 221 H (38-126) U/L Total Protein 6.1 L (6.3-8.2) g/dL Albumin 2.6 L (3.5-5.0) g/dL Triglycerides (<150) mg/dL 08/25/20 08/25/20 08/25/20 Range/Units 04:31 04:31 05:35 WBC 22.2 H (3.8-10.6) k/uL RBC 2.88 L (3.80-5.40) m/uL Hgb 8.9 L (11.4-16.0) gm/dL Hct 23.3 L (34.0-46.0) % MCHC 38.1 H (31.0-37.0) g/dL RDW 16.3 H (11.5-15.5) % Neutrophils # (Manual) 19.50 H (1.3-7.7) k/uL Eosinophils # (Manual) 0.89 H (0-0.7) k/uL Metamyelocytes # (Man) 0.22 H (0) k/uL ABG O2 Saturation 98.4 H (94-97) % Sodium 132 L (137-145) mmol/L Carbon Dioxide 18 L (22-30) mmol/L BUN 45 H (7-17) mg/dL Creatinine 3.26 H (0.52-1.04) mg/dL Glucose 102 H (74-99) mg/dL POC Glucose (mg/dL) (75-99) mg/dL Calcium 7.9 L (8.4-10.2) mg/dL Phosphorus 9.8 H* (2.5-4.5) mg/dL Delta Bilirubin (0.0-0.2) mg/dL AST 79 H (14-36) U/L Alkaline Phosphatase 254 H (38-126) U/L Total Protein (6.3-8.2) g/dL Albumin 2.8 L (3.5-5.0) g/dL Triglycerides (<150) mg/dL 08/25/20 08/25/20 08/25/20 Range/Units 06:30 10:25 12:12 WBC (3.8-10.6) k/uL RBC (3.80-5.40) m/uL Hgb (11.4-16.0) gm/dL Hct (34.0-46.0) % MCHC (31.0-37.0) g/dL RDW (11.5-15.5) % Neutrophils # (Manual) (1.3-7.7) k/uL Eosinophils # (Manual) (0-0.7) k/uL Metamyelocytes # (Man) (0) k/uL ABG O2 Saturation (94-97) % Sodium (137-145) mmol/L Carbon Dioxide (22-30) mmol/L BUN (7-17) mg/dL Creatinine (0.52-1.04) mg/dL Glucose (74-99) mg/dL POC Glucose (mg/dL) 119 H 129 H (75-99) mg/dL Calcium (8.4-10.2) mg/dL Phosphorus (2.5-4.5) mg/dL Delta Bilirubin (0.0-0.2) mg/dL AST (14-36) U/L Alkaline Phosphatase (38-126) U/L Total Protein (6.3-8.2) g/dL Albumin (3.5-5.0) g/dL Triglycerides 1492 H (<150) mg/dL Assessment and Plan Plan: Assessment: 1. Acute kidney injury, currently hemodialysis dependent. Etiology is ATN secondary to septic shock. Urine output 10-20 mL an hour. Baseline creatinine near 1. 2. Septic shock secondary to pneumonia. Maintained on antibiotics. Off vasopressors. 3. Volume overload. Improving with ultrafiltration. 4. Metabolic acidosis secondary to acute kidney injury. Improving. 5. Hypervolemic hyponatremia. 6. Hyperphosphatemia secondary to acute kidney injury Maintain on hospital. Plan: Currently seen while undergoing hemodialysis. Plan for another treatment tomorrow with goal 3 L ultrafiltration. Status post IV Lasix August 24 with no significant response in urine output. Wean FiO2.
[2020-08-25 18:45] LABS: Glucose,Whole Blood 126 mg/dL (75-99)
[2020-08-25] MEDS: ATORVASTATIN 80 MG TAB PO SCH (20:52)
--- NOTE | 2020-08-25 22:19 | PN ---
PROGRESS NOTE DATE OF SERVICE: 08/25/2020 REASON FOR FOLLOWUP: Aspiration pneumonia and possible oropharyngeal candidiasis. INTERVAL HISTORY: Patient is currently afebrile. The patient is hemodynamically stable. The patient remains to be intubated on the vent. FiO2 is currently stable at 40%. No significant purulent secretion or any diarrhea reported by the nursing staff. PHYSICAL EXAMINATION: Blood pressure 124/76, pulse 78, temperature 98.5. She is 95% on 40% FiO2. General description is a middle-aged female lying in bed in no distress. Respiratory system: Unlabored breathing, decreased breath sounds in the base, with no wheeze. Heart S1, S2. Regular rate and rhythm. ABDOMEN: Soft, no tenderness. LABS: Hemoglobin 8.8, white count 22.2, BUN of 45, creatinine 3.26. DIAGNOSTIC IMPRESSION AND PLAN: 1. Patient with complex pneumonia. Sputum has been Streptococcus pneumoniae, sensitive pathogen with concern of aspiration etiology. Covered with Unasyn. 2. Patient with elevated white count, possible oropharyngeal candidiasis. Responding to Eraxis as Diflucan could not be used because of drug reaction. White count showing a downward trend. 3. Continue monitor clinical course closely. MMODL / IJN: [id number] /
[2020-08-25] MEDS: DEXMEDETOMIDINE/0.9% NACL(PMX) 400 MCG in EMPTY BAG 1 BAG IV SCH (22:32)
[2020-08-25 23:52] LABS: Glucose,Whole Blood 132 mg/dL (75-99)
[2020-08-26] MEDS: AMPICILLIN-SULBACTAM 3 GM in SODIUM CHLORIDE 0.9% 100 ML IVPB SCH ×2 (02:35→17:35)
[2020-08-26] MEDS: DEXMEDETOMIDINE/0.9% NACL(PMX) 400 MCG in EMPTY BAG 1 BAG IV SCH ×2 (03:08→11:46)
[2020-08-26] MEDS: IPRATROPIUM-ALBUTEROL 3 ML NEB INHALATION SCH ×6 (03:16→23:34)
[2020-08-26 04:15] LABS: Anisocytosis Slight; HCT 23.9 % (34.0-46.0); HGB 7.8 gm/dL (11.4-16.0); MCH 26.8 pg (25.0-35.0); MCHC 32.7 g/dL (31.0-37.0); MCV 81.8 fL (80.0-100.0); Mean Platelet Volume 7.8; Platelet Count 383 k/uL (150-450); RBC 2.92 m/uL (3.80-5.40); RDW 16.5 % (11.5-15.5); WBC 17.5 k/uL (3.8-10.6)
[2020-08-26 04:26] LABS: Albumin 2.5 g/dL (3.5-5.0); Potassium 3.9 mmol/L (3.5-5.1); Total Bilirubin 0.9 mg/dL (0.2-1.3); Total Protein 6.5 g/dL (6.3-8.2)
[2020-08-26] MEDS: HYDROmorphone 1 MG/ML 1 ML SYRINGE IVP PRN (05:17)
[2020-08-26 05:51] LABS: Glucose,Whole Blood 158 mg/dL (75-99)
[2020-08-26] MEDS: INSULIN ASPART (NovoLOG) 100 UNIT/ML VIAL SQ SCH ×3 (05:54→19:20)
[2020-08-26] MEDS: CALCIUM ACETATE 667 MG TAB PO SCH ×3 (05:54→17:35)
[2020-08-26] MEDS: LEVOTHYROXINE 100 MCG TAB PO SCH (05:54)
[2020-08-26 06:04] LABS: ABG Base Excess -1.9 mmol/L; ABG HCO3 23 mmol/L (21-25); ABG PCO2 37 mmHg (35-45); ABG PO2 64 mmHg (83-108); ABG TCO2 24 mmol/L (19-24); Allen Test Performed? Yes
--- NOTE | 2020-08-26 07:40 | XR ---
EXAMINATION TYPE: XR chest 1V portable DATE OF EXAM: 08/26/2020 COMPARISON: Prior chest x-ray 08/25/2020 HISTORY: Pneumonia TECHNIQUE: Single frontal view of the chest is obtained. FINDINGS: Endotracheal tube and NG tube, left-sided PICC line are stable and overlying appropriate p ositions. Interval increased opacity has developed in the left upper lobe, there is near-complete opa cification. No evident pneumothorax. Lung volumes are low. Interstitium appears prominently in the ri ght hemithorax. Heart is obscured. IMPRESSION: Progression of left upper lobe atelectasis. Difficult to exclude a component of volume o verload, interstitial edema.
[2020-08-26] MEDS ORDERED: CISATRACURIUM 2 MG/ML 5 ML VIAL IV ONE (08:29)
[2020-08-26] MEDS ORDERED: FUROSEMIDE 10 MG/ML 10 ML VIAL IV STA (08:30)
--- NOTE | 2020-08-26 08:30 | P.PN ---
Subjective Patient is seen in follow-up for acute kidney injury. She is currently hemodialysis dependent. She is intubated, on 50% FiO2. Not on vasopressors. Receiving tube feeding. Oliguric. Scheduled for bronchoscopy today. Vital signs are stable. General: The patient appeared well nourished and normally developed. HEENT: Head exam is unremarkable. Intubated. LUNGS: Breath sounds decreased. HEART: Rate and Rhythm are regular. ABDOMEN: Soft, obese. EXTREMITITES: 2+ edema. Objective - Vital Signs Vital signs: Vital Signs Temp 98.6 F 08/26/20 06:00 Pulse 64 08/26/20 08:00 Resp 22 08/26/20 08:00 BP 95/55 08/26/20 08:00 Pulse Ox 95 08/26/20 08:00 Intake & Output 08/25/20 08/26/20 08/26/20 18:59 06:59 18:59 Intake Total 1191.9 804.13 128 Output Total 3105 45 5 Balance -1913.1 759.13 123 Weight 158.2 kg Intake: IV 123 110 20 0.9 120 110 20 Pressure Bag 3 Intake, IV Titration 300.9 94.13 Amount Dexmedetomidine/0.9% NaCl 94.13 (Pmx) 400 mcg In Empty Bag 1 bag @ Titrate IV . Q0M [facility] Rx#:[id number] propofoL 1,000 mg In 300.9 Empty Bag 1 bag @ Titrate IV .Q0M [facility] Rx#: [id number] Tube Feeding 648 540 108 Other 120 60 0 Output: Urine 105 45 5 Hemodialysis 3000 Other: Voiding Method Indwelling Catheter Indwelling Catheter Indwelling Catheter # Bowel Movements 1 ABP, PAP, CO, CI - Last Documented Arterial Blood Pressure 120/60 - Labs CBC & Chem 7: 08/26/20 03:47 08/26/20 03:47 Labs: Abnormal Lab Results - Last 24 Hours (Table) 08/25/20 08/25/20 08/25/20 Range/Units 10:25 12:12 18:44 WBC (3.8-10.6) k/uL RBC (3.80-5.40) m/uL Hgb (11.4-16.0) gm/dL Hct (34.0-46.0) % RDW (11.5-15.5) % ABG pO2 (83-108) mmHg ABG O2 Saturation (94-97) % Carbon Dioxide (22-30) mmol/L BUN (7-17) mg/dL Creatinine (0.52-1.04) mg/dL Glucose (74-99) mg/dL POC Glucose (mg/dL) 129 H 126 H (75-99) mg/dL Calcium (8.4-10.2) mg/dL AST (14-36) U/L Alkaline Phosphatase (38-126) U/L Albumin (3.5-5.0) g/dL Triglycerides 1492 H (<150) mg/dL 08/25/20 08/26/20 08/26/20 Range/Units 23:51 03:47 03:47 WBC 17.5 H (3.8-10.6) k/uL RBC 2.92 L (3.80-5.40) m/uL Hgb 7.8 L (11.4-16.0) gm/dL Hct 23.9 L (34.0-46.0) % RDW 16.5 H (11.5-15.5) % ABG pO2 (83-108) mmHg ABG O2 Saturation (94-97) % Carbon Dioxide 18 L (22-30) mmol/L BUN 32 H (7-17) mg/dL Creatinine 3.12 H (0.52-1.04) mg/dL Glucose 122 H (74-99) mg/dL POC Glucose (mg/dL) 132 H (75-99) mg/dL Calcium 8.0 L (8.4-10.2) mg/dL AST 89 H (14-36) U/L Alkaline Phosphatase 255 H (38-126) U/L Albumin 2.5 L (3.5-5.0) g/dL Triglycerides (<150) mg/dL 08/26/20 08/26/20 Range/Units 05:41 05:50 WBC (3.8-10.6) k/uL RBC (3.80-5.40) m/uL Hgb (11.4-16.0) gm/dL Hct (34.0-46.0) % RDW (11.5-15.5) % ABG pO2 64 L (83-108) mmHg ABG O2 Saturation 92.0 L (94-97) % Carbon Dioxide (22-30) mmol/L BUN (7-17) mg/dL Creatinine (0.52-1.04) mg/dL Glucose (74-99) mg/dL POC Glucose (mg/dL) 158 H (75-99) mg/dL Calcium (8.4-10.2) mg/dL AST (14-36) U/L Alkaline Phosphatase (38-126) U/L Albumin (3.5-5.0) g/dL Triglycerides (<150) mg/dL Assessment and Plan Plan: Assessment: 1. Acute kidney injury, currently hemodialysis dependent. Etiology is ATN secondary to septic shock. Urine output 0-5 mL an hour. Baseline creatinine near 1. 2. Septic shock secondary to pneumonia. Maintained on antibiotics. Off vasopressors. 3. Volume overload. Improving with ultrafiltration. 4. Metabolic acidosis secondary to acute kidney injury. Maintained on oral bicarb. Stable. 5. Hypervolemic hyponatremia. 6. Hyperphosphatemia secondary to acute kidney injury Maintain on PhosLo. Plan: Hemodialysis today with goal 3-3-1/2 L ultrafiltration as able to tolerate. Lasix 80 mg IV once today. Increase frequency of bicarb to 3 times daily. Wean FiO2. Scheduled for bronchoscopy today. Continue to monitor renal function and urine output.
--- NOTE | 2020-08-26 08:40 | P.PCN ---
Date of Procedure: 08/26/20 Preoperative Diagnosis: Left lung collapse Postoperative Diagnosis: left lung collapse Procedure(s) Performed: bronchoscopy, BAL Anesthesia: MAC Surgeon: Vikki Ray Art Objects Repairer #1: Lachelle Paul Estimated Blood Loss (ml): 0 Pathology: none sent Condition: critical Disposition: ICU Operative Findings: his procedure was done in the intensive care unit. The patient was already intubated on a mechanical ventilator. The patient will be placed on on the p ercent FiO2. The procedure was done was the patient is fully mechanically ventilated adequately oxygenated and ventilated. The patient is currently intubated with a #8 orotracheal tube. was essentially orotracheal tube and following that the bronchoscope was advanced into the lower trachea. Examination of the tracheal bronchial tree was done. The tip of the ET tube was seen around 2 cm above the rashid. Examination of the distal trachea, right mainstem bronchus, right upper lobe bronchus, bronchus reason the right lower lobe bronchus was within normal limits. Following that, the bronchoscope was moved to the left and there was large amount of mucous plug occupying the left mainstem bronchus. The secretions were irrigated with saline and all of the mucous plug was taken out. At the completion of the procedure, airway patency was achieved including the left mainstem bronchus, left upper lobe bronchus and left lower lobe bronchus. There is a segment of the left lower lobe at electatic. The procedure was Completed and the bronchioloalveolar lavage of the left lower lobe was done. A total of 25-30 mL of fluid was aspirated from the left lower lobe and it was sent for cultures. Chest x-rays to follow.
[2020-08-26] MEDS: BUDESONIDE 1 MG/2 ML NEBU INHALATION SCH ×2 (08:47→19:52)
[2020-08-26] MEDS: FORMOTEROL FUMARATE 20 MCG/2 ML NEBU INHALATION SCH ×2 (08:47→19:52)
[2020-08-26] MEDS: ANIDULAFUNGIN 100 MG in SODIUM CHLORIDE 0.9% 100 ML IVPB SCH (08:50)
[2020-08-26] MEDS: ASPIRIN 81 MG PO SCH (08:51)
[2020-08-26] MEDS: AMIODARONE 200 MG TAB PO SCH ×2 (08:51→19:45)
[2020-08-26] MEDS: METOPROLOL TARTRATE 25 MG TAB PO SCH ×2 (08:51→19:45)
[2020-08-26] MEDS: PARoxetine 20 MG TAB PO SCH (08:51)
[2020-08-26] MEDS: PANTOPRAZOLE 40 MG/10 ML VIAL IVP SCH (08:51)
[2020-08-26] MEDS: SODIUM BICARBONATE TAB 650 MG TAB PO SCH ×3 (08:51→19:45)
[2020-08-26] MEDS: ERGOCALCIFEROL 50,000 UNIT CAP PO SCH (08:52)
[2020-08-26] MEDS: APIXABAN 2.5 MG TABLET PO SCH ×2 (08:52→19:46)
[2020-08-26] MEDS: CHLORHEXIDINE GLUCONATE 15 ML CUP MUCOUS MEM SCH ×2 (08:53→19:46)
--- NOTE | 2020-08-26 09:13 | PN ---
PROGRESS NOTE Mrs. Kim is a 55-year-old female who presented with pneumonia requiring mechanical ventilation, had episode of paroxysmal atrial fibrillation. She remains intubated and sedated. She has evidence of acute kidney injury and she is undergoing dialysis. She had burst of atrial fibrillation yesterday, but continues to be in sinus mechanism at this time. She is requiring no pressors. There was some worsening oxygenation yesterday. There is no evidence of ventricular ectopic activity. Her chest x-ray revealed white out of the left lung compared to yesterday. . MEDICATION: Continue to be amiodarone 400 mg twice a day, Eliquis 2.5 mg twice a day, aspirin once a day, Lipitor 80 mg daily, metoprolol 25 mg twice a day. PHYSICAL EXAMINATION: Blood pressure running in the 100-130s with a heart in the 60s. She is intubated and sedated. LUNGS: With decreased air exchange on the left side. HEART: Regular rate and rhythm, S1, S2. No S3. No rub appreciated. ABDOMEN: Soft, positive bowel sounds, no organomegaly. EXTREMITIES: No edema. LAB DATA: Revealed a hemoglobin of 7.8, BUN and creatinine of 32 and 3.12. Her potassium is 3.9. IMPRESSION: 1. Respiratory failure with pneumonia of the left lower lobe with mucus plug removed by the bronchoscopy on 08/17. 2. Septic shock. 3. Acute renal injury. 4. Paroxysmal atrial fibrillation. 5. Cardiomyopathy of unknown duration or etiology. RECOMMENDATION: From the cardiac standpoint, will continue supportive care. Patient is anticoagulated. Her rate is controlled when goes into atrial fibrillation. She may require repeat bronchoscopy to address the issue of the left lung. She will continue dialysis. The prognosis remains guarded. MMODL / IJN: [id number] /
--- NOTE | 2020-08-26 09:59 | XR ---
EXAMINATION TYPE: XR chest 1V portable DATE OF EXAM: 08/26/2020 COMPARISON: Prior chest x-ray 08/26/2020 earlier time HISTORY: Status post bronchoscopy TECHNIQUE: Single frontal view of the chest is obtained. FINDINGS: Near complete opacification of left hemithorax is present, some minimal air bronchograms n oted in the left upper hemithorax. No other significant interval change. IMPRESSION: No evident complication status post bronchoscopy. Near complete opacification left hemit horax.
[2020-08-26 12:48] LABS: Glucose,Whole Blood 110 mg/dL (75-99)
--- NOTE | 2020-08-26 14:54 | XR ---
EXAMINATION TYPE: XR chest 1V portable DATE OF EXAM: 08/26/2020 COMPARISON: Prior chest x-ray 08/26/2020 HISTORY: Pneumonia, cough TECHNIQUE: Single frontal view of the chest is obtained. FINDINGS: Endotracheal tube and NG tube are overlying appropriate positions, left PICC line shows di stal tip overlying the left superior vena cava region. Patient is rotated. There is interval improved aeration within the left lung, there is residual patchy density, obscured left hemidiaphragm. No troy dent pneumothorax. IMPRESSION: Improved aeration in the left lung as compared to prior exam, correlate for pneumonia. T here may be associated atelectasis, effusion, the heart is enlarged. Duplicated superior vena cava.
--- NOTE | 2020-08-26 14:54 | P.PN ---
Subjective Progress Note Date: 08/26/20 This is a 55-year-old female patient was hospitalized on 08/16/2020 with an acute left lower lobe pneumonia sepsis. Note that the patient has undergone a bronchoscopy on 08/17/2024 mucous plugs. The sepsis and the left lower lobe pneumonia was felt to be related to Streptococcus pneumonia. The Streptococcus pneumoniae was cultured in the sputum sample. Blood cultures of been negative. The patient was intubated, extubated on the same daily intubated has is that she has been on a mechanical ventilator. At this point in time, the patient is on a assist-control mode of using the VAC plus mode. The patient is respiratory rate of 350 tidal volume of 350 FiO2 of 50 and PEEP of 8. The i nspiratory time is at 0.9 seconds. The blood gases from today shows a pH of 7.27 with a pCO2 of 38 and pO2 93. The chest x-ray from today showing pulmonary edema along with cardiomegaly. There is increased interstitial infiltrates bilaterally in addition to her left lower lobe consolidation/airspace disease. ET tube remains in a good location. The patient is sedated with propofol which is running at 30 mics micrograms per kilogram per minute. The patient during the course of her treatment, developed an acute kidney injury, currently she is on hemodialysis last dialysis being on 08/22/2020 with a total of 3.5 L of fluid was ultrafiltrated. The patient is on growth spectrum antibiotics including a combination of IV Unasyn and the patient is also on IV Eraxis. In terms of hemodynamics, the patient is still pressor dependent. The neck fluid balance has been negative as the patient has been undergoing dialysis with ultrafiltration. The chest x-ray showing a left lower lobe consolidation With adequate positioning of the ET tube. The patient has an orogastric tube for enteral feeding and nutritional support and the patient also has a PICC line in the left upper extremity. The echo of the heart showed a moderate concentric LVH with an ejection fraction of 30-35%. There was mild aortic sclerosis and severe pulmonary hypertension with a PA pressure of 66 mmHg. The patient has been having also approximately atrial fibrillation. She is currently on oral amiodarone. She is also on metoprolol for rate control. She was on IV heparin was discontinued due to nosebleed subsequently the patient was started on oral anticoagulation with Eliquis. The patient's other comorbidities include obstructive sleep apnea and the patient has not been completely compliant to CPAP therapy, she has been morbidly obese, hypothyroid and history of bronchial asthma. The plan for today still undergo another session of hemodialysis with ultrafiltration. The white cell count remains elevated yet is down from yesterday is down to 29.2. On 08/25/2020 the patient is being seen for a follow-up. The patient remains on a mechanical ventilator. On today's evaluation, the patient is an assist- control mode at a rate of 26 with a tidal volume of 450 and FiO2 of 50% with a PEEP of 8. Blood gases from today showed a pH of 7.34 with a pCO2 of 36 and pO2 of 104 and this was on FiO2 of 50%. The patient is on propofol for sedation running at 55 mg per KG per minute. The patient is on normal saline at the rate of 20 mL an hour and the patient is also on vital high protein at the rate of 36 mL for enteral feeding and nutritional support. The patient underwent hemodialysis yesterday without a total of 3 L of fluid was removed. Urine output is low in the order of 15-20 mL. The chest x-ray still showing diffuse bilateral pulmonary infiltrates and CHF along with cardiomegaly anterolaterally unchanged compared to yesterday. The patient is afebrile. White cell count is down to 22. Hemoglobin stable at 8.9. Rest of the blood work shows a BUN of 45, creatinine 3.2, and the patient is a mild anion gap metabolic acidosis with a serum bicarb of 18. The triglyceride level came back at 1492. The patient's cardiac rhythm is sinus. The patient remains on antibiotic ventilation with Eliquis. On 08/26/2020, the patient is being seen for a follow-up. This morning, the patient is on Precedex. I'm glad to report to the patient's been off Diprivan and we will gradually going to wean off the Precedex and assess the patient's mental status. Precedex is running at 0.5 mg per KG per minute. The patient remains on a mechanical ventilator on assist control mode at the rate of 26 and a tidal volume of 450 and FiO2 of 50% with a PEEP of 6. PH is at 7.4 with a pCO2 of 37 and pO2 of 64. Chest x-ray shows volume loss and complete investigation of the left lung most likely secondary to a mucous plug as the patient has a cutoff sign in the distal left mainstem bronchus. Based on that, a bedside bronchoscopy was done and copious amounts of mucous plugs were aspirated from the left mainstem bronchus. There cultures were sent from the bronchioloalveolar lavage was obtained from the left lower lobe. Meanwhile, the patient remains on IV Unasyn. The patient is afebrile. The patient's hemoglobin is stable. The patient undergoing daily hemodialysis ultrafiltration and another session is planned for today. Note that following the bronchoscopy, [employer] chest x-ray was done and the patient did not show adequate expansion of the left lung. Based on that, increase the PEEP to 12 and a repeat chest x-rays to follow. The patient is tolerating enteral feeding for nutritional support with vital HP of 36 mL an hour. A repeat chest x-ray that was done later on in the afternoon showed reexpansion of the left lung although there is some ongoing basilar atelectasis on the basis Objective - Vital Signs Vital signs: Vital Signs Temp 98.6 F 08/26/20 13:18 Pulse 70 08/26/20 13:18 Resp 16 08/26/20 13:18 BP 94/59 08/26/20 13:18 Pulse Ox 98 08/26/20 12:00 Intake & Output 08/25/20 08/26/20 08/26/20 18:59 06:59 18:59 Intake Total 1191.9 804.13 452 Output Total 3105 45 3505 Balance -1913.1 759.13 -3053 Weight 158.2 kg 158.2 kg Intake: IV 123 110 70 0.9 120 110 70 Pressure Bag 3 Intake, IV Titration 300.9 94.13 100 Amount Dexmedetomidine/0.9% NaCl 94.13 100 (Pmx) 400 mcg In Empty Bag 1 bag @ Titrate IV . Q0M [facility] Rx#:[id number] propofoL 1,000 mg In 300.9 Empty Bag 1 bag @ Titrate IV .Q0M [facility] Rx#: [id number] Tube Feeding 648 540 252 Other 120 60 30 Output: Urine 105 45 5 Hemodialysis 3000 3500 Other: Voiding Method Indwelling Catheter Indwelling Catheter Indwelling Catheter # Bowel Movements 1 ABP, PAP, CO, CI - Last Documented Arterial Blood Pressure 120/60 - Exam Gen. appearance the patient is intubated, comfortable mechanical ventilator status the mechanical ventilator on assist control mode and orogastric and orotracheal tube are both in place. Patient is morbidly obese. Head exam was generally normal. There was no scleral icterus or corneal arcus. Mucous membranes were moist. Neck was supple and without jugular venous distension, thyromegaly, or carotid bruits. Carotids were easily palpable bilaterally. There was no adenopathy. My normal lungs breath sounds are quite diminished in the left lung base compared to the right. Cardiac exam revealed the PMI to be normally situated and sized. The rhythm was regular and no extrasystoles were noted during several minutes of auscultation. The first and second heart sounds were normal and physiologic splitting of the second heart sound was noted. There were no murmurs, rubs, clicks, or gallops. Abdominal exam revealed normal bowel sounds. The abdomen was soft, non-tender, and without masses, organomegaly, or appreciable enlargement of the abdominal aorta. Extremities revealed trace edema and there is clubbing and the patient has a PICC line in left upper extremity. The patient has edema in all 4 extremities and the patient has a Artline catheter in the right brachial artery. Neurologically the patient is sedated. The patient is calm and comfortable cigarettes with the mechanical ventilator. - Labs CBC & Chem 7: 08/26/20 03:47 08/26/20 03:47 Labs: Abnormal Lab Results - Last 24 Hours (Table) 08/25/20 08/25/20 08/26/20 Range/Units 18:44 23:51 03:47 WBC 17.5 H (3.8-10.6) k/uL RBC 2.92 L (3.80-5.40) m/uL Hgb 7.8 L (11.4-16.0) gm/dL Hct 23.9 L (34.0-46.0) % RDW 16.5 H (11.5-15.5) % ABG pO2 (83-108) mmHg ABG O2 Saturation (94-97) % Carbon Dioxide (22-30) mmol/L BUN (7-17) mg/dL Creatinine (0.52-1.04) mg/dL Glucose (74-99) mg/dL POC Glucose (mg/dL) 126 H 132 H (75-99) mg/dL Calcium (8.4-10.2) mg/dL AST (14-36) U/L Alkaline Phosphatase (38-126) U/L Albumin (3.5-5.0) g/dL 08/26/20 08/26/20 08/26/20 Range/Units 03:47 05:41 05:50 WBC (3.8-10.6) k/uL RBC (3.80-5.40) m/uL Hgb (11.4-16.0) gm/dL Hct (34.0-46.0) % RDW (11.5-15.5) % ABG pO2 64 L (83-108) mmHg ABG O2 Saturation 92.0 L (94-97) % Carbon Dioxide 18 L (22-30) mmol/L BUN 32 H (7-17) mg/dL Creatinine 3.12 H (0.52-1.04) mg/dL Glucose 122 H (74-99) mg/dL POC Glucose (mg/dL) 158 H (75-99) mg/dL Calcium 8.0 L (8.4-10.2) mg/dL AST 89 H (14-36) U/L Alkaline Phosphatase 255 H (38-126) U/L Albumin 2.5 L (3.5-5.0) g/dL 08/26/20 Range/Units 12:46 WBC (3.8-10.6) k/uL RBC (3.80-5.40) m/uL Hgb (11.4-16.0) gm/dL Hct (34.0-46.0) % RDW (11.5-15.5) % ABG pO2 (83-108) mmHg ABG O2 Saturation (94-97) % Carbon Dioxide (22-30) mmol/L BUN (7-17) mg/dL Creatinine (0.52-1.04) mg/dL Glucose (74-99) mg/dL POC Glucose (mg/dL) 110 H (75-99) mg/dL Calcium (8.4-10.2) mg/dL AST (14-36) U/L Alkaline Phosphatase (38-126) U/L Albumin (3.5-5.0) g/dL Assessment and Plan Plan: 1 acute hypoxic respiratory failure secondary to left lower lobe pneumoni a/sepsis. the chest x-ray from today shows complete opacification of the left lung and the patient had extensive multiple mucous plugs in the left mainstem bronchus and these were suctioned out. Follow-up chest x-ray showed improvement in aeration of the left lung. The patient is currently on a PEEP of 12 and this was added to improved aeration of the left lung. She remains on same antibiotic coverage. The patient also had a bronchioloalveolar lavage obtained from the left lung and this will be sent again for cultures. We will, the patient be given a sedation holiday and weaning parameters will be assessed. 2 septic shock secondary to the left lower lobe pneumonia secondary to pneumo coccus/strep pneumonia, currently on no pressors and the patient is completing a course of IV Unasyn 3 acute kidney injury currently hemodialysis dependent. the patient developed an acute kidney injury secondary to pneumonia/sepsis. The patient is requiring daily hemodialysis. Dialysis with ultrafiltration is being done a daily basis and today another session of hemodialysis ultrafiltration will be performed.. 4 morbid obesity 5 history of bronchial asthma 6 history obstructive sleep apnea noncompliant to CPAP therapy, would possibly the pickwickian syndrome 7 diabetes mellitus type 2, currently on a sliding scale coverage 8 hypothyroidism 9 CHF with impaired ejection fraction of 30-35%. This is considered to be a systolic heart failure, could be sepsis induced and the patient has a component of severe pulmonary hypertension. 10 persistent leukocytosis most likely improved compared to yesterday 11 non-anion gap metabolic acidosis 12 paroxysmal atrial fibrillation current rhythm is sinus 13 hypertriglyceridemia secondary to propofol infusion. The patient is currentl y off the propofol due to hypertriglyceridemia the patient is currently on Precedex. Plan Continue ventilator support, and increased PEEP was offered due to left lung collapse and this will hopefully help with that especially of the left lung. Drop the FiO2 down to 40% Stop Precedex and check underlying mental status and consider obtaining weaning parameters as the patient is fully awake Dialysis with ultrafiltration will be done today. Continue antibiotics Monitor the white cell count Continue enteral feeding for nutritional support Condition is critical we'll continue to follow make further recommendations based on her progress. Critically care management was done more than 30 bryant nirav. Time with Patient: Greater than 30
--- NOTE | 2020-08-26 16:39 | P.PCN ---
Date of Procedure: 08/26/20 Preoperative Diagnosis: Acute hypoxic respiratory failure Postoperative Diagnosis: Acute hypoxic respiratory failure Procedure(s) Performed: Insertion of an arterial line Anesthesia: local Surgeon: Vikki Ray Pathology: other Condition: critical Disposition: ICU Operative Findings: Indication: Hemodynamic monitoring. A time-out was completed verifying correct patient, procedure, site, positioning, and implant(s) or special equipment if applicable. Allens test was performed to ensure adequate perfusion. The patients left wrist was prepped and draped in sterile fashion. 1% Lidocaine was used to anesthetize the area. An 18G Arrow arterial line was introduced into the radial artery. The catheter was threaded over the guide wire and the needle was removed with appropriate pulsatile blood return. Blood loss was minimal. The catheter was then sutured in place to the skin and a sterile dressing applied. Perfusion to the extremity distal to the point of catheter insertion was checked and found to be adequate. The patient tolerated the procedure well and there were no complications.
[2020-08-26 17:44] LABS: Glucose,Whole Blood 113 mg/dL (75-99)
[2020-08-26] MEDS: ATORVASTATIN 80 MG TAB PO SCH (19:45)
[2020-08-26] MEDS ORDERED: DEXMEDETOMIDINE/0.9% NACL(PMX) 400 MCG in EMPTY BAG 1 BAG IV SCH (20:00)
--- NOTE | 2020-08-26 22:29 | PN ---
PROGRESS NOTE DATE OF SERVICE: 08/26/2020 REASON FOR FOLLOWUP: Aspiration pneumonia and possible oropharyngeal candidiasis. INTERVAL HISTORY: Patient is currently afebrile. The patient was noticed to have mucus plugging. The patient did have a bronchoscopy with overall improvement in her respiratory status afterwards. The patient is hemodynamically stable. Not on pressor support. FiO2 is currently 50%. No significant diarrhea per the nursing staff. She has been tolerating tube feeds. PHYSICAL EXAMINATION: Blood pressure 143/75 with a pulse of 77, temperature 98. She is 97% on 50% FIO2. General description is a middle-aged female lying in bed in no distress. Respiratory system: Unlabored breathing, decreased breath sounds at the base. No wheeze. HEART: S1, S2. Regular rate and rhythm. Abdomen soft, no tenderness. LABS: White count down to 17.5. BUN of 32, creatinine 3.12. DIAGNOSTIC IMPRESSION AND PLAN: 1. Patient with acute respiratory failure which is multifactorial in this patient who did have a component of pneumonia, likely aspiration etiology. Sputum has been strep pneumo. Patient covered with Unasyn. This patient did have mucus plugging status post bronchoscopy with the repeat cultures. Those will be followed. 2. Patient with elevated white count, multifactorial, possible component of oropharyngeal candidiasis. The patient is covered with Eraxis and white count showing a downward trend. MMODL / IJN: [id number] /
--- NOTE | 2020-08-26 22:33 | P.PN ---
Subjective Progress Note Date: 08/24/20 Principal diagnosis: Acute hypoxic respiratory failure requiring mechanical ventilation secondary to pneumonia Acute hypoxic/hypercapnic respiratory failure secondary to left lower lobe pneumonia with sepsis 55-year-old female patient was morbid obesity as well as multiple comorbid conditions who was admitted to the hospital with acute hypoxic respiratory failure secondary to pneumonia and she was intubated and placed on mechanical ventilation. Cardiology consulted to see the patient for further evaluation off tachycardia episode consistent with atrial fibrillation. The patient was seen this morning. She continues to be intubated on mechanical ventilation. Hemodynamically she is a stable and not requiring any vasopressors. She has been maintaining normal sinus mechanism. She is on amiodarone by mouth. Also she is on heparin IV. We will consider oral anticoag ulation was noted that the patient is not in process of having any further surgical procedure. Otherwise we will continue the current medical regimen. Please note that the echocardiogram revealed cardiomyopathy. Also the patient has been dialysis every day. 08/22/2020 Patient is seen and evaluated at bedside in ICU; patient remains on mechanical ventilation; remains sedated with propofol; continues to be hemodialyzed daily; intensive care and nephrology on board and managing ventilator and hemodialysis 08/23/2020 Patient is seen and evaluated in ICU; remains intubated; patient remains in and out of atrial fibrillation; cardiology is following and recommending to continue amiodarone and addition of metoprolol; heparin has been discontinued because of nosebleed; cardiology recommending to start small dose of oral anticoagulation; echocardiogram reveals EF of 35%; nephrology on board for dialysis 08/24/2020 Patient was admitted to the hospital on 08/16/2020 due to sepsis secondary to acute left lower lobe pneumonia. Currently patient is on mechanical ventilator and is intubated. Chest x-ray showed pulmonary edema and cardiomegaly. Increased interstitial infiltrates bilaterally in addition to her left lower lobe airspace disease. Patient developed acute kidney injury currently requiring hemodialysis. Patient is on c antibiotics in the form of Unasyn and anidulafungal. Patient is on amiodarone drip due to atrial fibrillation and rate is controlled with metoprolol. Anticoagulation has been changed from heparin drip to Eliquis. On tube feedings via NG tube. Patient is undergoing hemodialysis today. Laboratory data showed WBC count of 9.2, hemoglobin 9.0 and platelets 366 Sodium 129, potassium 3.9, chloride 97, BUN 52 and creatinine 4.12 and phosphorus 10.8 and calcium 7.1 Pulmonary and nephrology is on board. Current medications reviewed. Objective - Vital Signs Vital signs: Vital Signs Temp 98.0 F 08/24/20 13:53 Pulse 69 08/24/20 15:24 Resp 27 H 08/24/20 15:00 BP 118/73 08/24/20 15:00 Pulse Ox 93 L 08/24/20 15:00 Intake & Output 08/23/20 08/24/20 08/24/20 18:59 06:59 18:59 Intake Total 1126 1425.941 735 Output Total 75 60 3025 Balance 1051 1365.941 -2290 Weight 164.5 kg 164.5 kg Intake: IV 586 943 205 0.9 515 900 175 Pressure Bag 71 43 30 Intake, IV Titration 300 296.941 200 Amount propofoL 1,000 mg In 300 296.941 200 Empty Bag 1 bag @ Titrate IV .Q0M [facility] Rx#: [id number] Tube Feeding 180 156 300 Other 60 30 30 Output: Urine 75 60 25 Uretheral (Peterson) 5 Hemodialysis 3000 Other: Voiding Method Indwelling Catheter Indwelling Catheter Indwelling Catheter ABP, PAP, CO, CI - Last Documented Arterial Blood Pressure 109/55 - Exam PHYSICAL EXAMINATION: Patient is On mechanical ventilator and is sedated... HEENT: Normocephalic. Neck is supple. Pupils reactive. Nostrils clear. Oral cavity is moist. Ears reveal no drainage. Neck reveals no JVD, carotid bruits, or thyromegaly. CHEST EXAMINATION: Trachea is central. Symmetrical expansion. Bibasilar diminished air entry. No wheezing or rhonchi.. CARDIAC: Normal S1, S2 with no gallops. No murmurs ABDOMEN: Soft. Bowel sounds presentl. No organomegaly. No abdominal bruits. Extremities: reveal no edema. No clubbing or cyanosis Neurologically Patient is sedated and intubated. Skin: No rash or skin lesions. Psychiatric: Could not be assessed at this time. Musculoskeletal: No joint swelling or deformity. - Labs CBC & Chem 7: 08/26/20 03:47 08/26/20 03:47 Labs: Abnormal Lab Results - Last 24 Hours (Table) 08/23/20 08/24/20 08/24/20 Range/Units 17:23 03:50 03:50 WBC 29.2 H (3.8-10.6) k/uL RBC 2.98 L (3.80-5.40) m/uL Hgb 9.0 L (11.4-16.0) gm/dL Hct 24.3 L (34.0-46.0) % RDW 16.2 H (11.5-15.5) % Neutrophils # (Manual) 27.10 H (1.3-7.7) k/uL Metamyelocytes # (Man) 1.17 H (0) k/uL Myelocytes # (Manual) 0.29 H (0) k/uL ABG pH (7.35-7.45) ABG HCO3 (21-25) mmol/L Sodium 129 L (137-145) mmol/L Chloride 97 L (98-107) mmol/L Carbon Dioxide 15 L (22-30) mmol/L BUN 52 H (7-17) mg/dL Creatinine 4.12 H (0.52-1.04) mg/dL POC Glucose (mg/dL) 106 H (75-99) mg/dL Calcium 7.1 L (8.4-10.2) mg/dL Phosphorus 10.8 H* (2.5-4.5) mg/dL Delta Bilirubin (0.0-0.2) mg/dL AST 70 H (14-36) U/L Alkaline Phosphatase 217 H (38-126) U/L Total Protein 6.2 L (6.3-8.2) g/dL Albumin 2.6 L (3.5-5.0) g/dL 08/24/20 08/24/20 Range/Units 03:50 05:47 WBC (3.8-10.6) k/uL RBC (3.80-5.40) m/uL Hgb (11.4-16.0) gm/dL Hct (34.0-46.0) % RDW (11.5-15.5) % Neutrophils # (Manual) (1.3-7.7) k/uL Metamyelocytes # (Man) (0) k/uL Myelocytes # (Manual) (0) k/uL ABG pH 7.27 L (7.35-7.45) ABG HCO3 18 L (21-25) mmol/L Sodium (137-145) mmol/L Chloride (98-107) mmol/L Carbon Dioxide (22-30) mmol/L BUN (7-17) mg/dL Creatinine (0.52-1.04) mg/dL POC Glucose (mg/dL) (75-99) mg/dL Calcium (8.4-10.2) mg/dL Phosphorus (2.5-4.5) mg/dL Delta Bilirubin 0.7 H (0.0-0.2) mg/dL AST 71 H (14-36) U/L Alkaline Phosphatase 221 H (38-126) U/L Total Protein 6.1 L (6.3-8.2) g/dL Albumin 2.6 L (3.5-5.0) g/dL Assessment and Plan Assessment: 1. Acute hypoxic respiratory failure requiring mechanical ventilation secondary to pneumonia. patient remains intubated and mechanically ventilated. 2. Sepsis, secondary to Streptococcal pneumonia. Status post bronchoscopy. 3. Paroxysmal atrial fibrillation with RVR 4. Cardiomyopathy, unknown if ischemic or nonischemic, EF 30-35% 5. Abnormal troponins, possible NSTEMI, may be secondary to hypoxia, sepsis, and/or afib with RVR, however can not rule out underlying coronary artery disease 6. Severe pulmonary hypertension 7. Acute kidney injury Secondary to ATN currently requiring hemodialysis 8. Hypotension requiring vasopressor support 9. History of asthma 10. Hypothyroidism 11. Morbid obesity with a BMI 56.3 PLAN: Patient is being continued on mechanical ventilation. Continue with antibiotics and hemodialysis as per nephrology. Anticoagulation is being changed to Eliquis and also on amiodarone. Prognosis guarded at this time. Further recommendations based on the clinical course. Time with Patient: Greater than 30
--- NOTE | 2020-08-26 22:36 | P.PN ---
Subjective Progress Note Date: 08/25/20 Principal diagnosis: Acute hypoxic respiratory failure requiring mechanical ventilation secondary to pneumonia Acute hypoxic/hypercapnic respiratory failure secondary to left lower lobe pneumonia with sepsis 55-year-old female patient was morbid obesity as well as multiple comorbid conditions who was admitted to the hospital with acute hypoxic respiratory failure secondary to pneumonia and she was intubated and placed on mechanical ventilation. Cardiology consulted to see the patient for further evaluation off tachycardia episode consistent with atrial fibrillation. The patient was seen this morning. She continues to be intubated on mechanical ventilation. Hemodynamically she is a stable and not requiring any vasopressors. She has been maintaining normal sinus mechanism. She is on amiodarone by mouth. Also she is on heparin IV. We will consider oral anticoag ulation was noted that the patient is not in process of having any further surgical procedure. Otherwise we will continue the current medical regimen. Please note that the echocardiogram revealed cardiomyopathy. Also the patient has been dialysis every day. 08/22/2020 Patient is seen and evaluated at bedside in ICU; patient remains on mechanical ventilation; remains sedated with propofol; continues to be hemodialyzed daily; intensive care and nephrology on board and managing ventilator and hemodialysis 08/23/2020 Patient is seen and evaluated in ICU; remains intubated; patient remains in and out of atrial fibrillation; cardiology is following and recommending to continue amiodarone and addition of metoprolol; heparin has been discontinued because of nosebleed; cardiology recommending to start small dose of oral anticoagulation; echocardiogram reveals EF of 35%; nephrology on board for dialysis 08/24/2020 Patient was admitted to the hospital on 08/16/2020 due to sepsis secondary to acute left lower lobe pneumonia. Currently patient is on mechanical ventilator and is intubated. Chest x-ray showed pulmonary edema and cardiomegaly. Increased interstitial infiltrates bilaterally in addition to her left lower lobe airspace disease. Patient developed acute kidney injury currently requiring hemodialysis. Patient is on c antibiotics in the form of Unasyn and anidulafungal. Patient is on amiodarone drip due to atrial fibrillation and rate is controlled with metoprolol. Anticoagulation has been changed from heparin drip to Eliquis. On tube feedings via NG tube. Patient is undergoing hemodialysis today. Laboratory data showed WBC count of 9.2, hemoglobin 9.0 and platelets 366 Sodium 129, potassium 3.9, chloride 97, BUN 52 and creatinine 4.12 and phosphorus 10.8 and calcium 7.1 Pulmonary and nephrology is on board. 08/25/2020 Patient remains on mechanical ventilation. Continued on antibiotics and antifungals. Tolerating tube feeding. Patient underwent hemodialysis yesterday. Chest x-ray showed diffuse pleural-parenchymal changes are stable could be on the basis of diffuse pneumonia pulmonary edema correlate clinically. ARDS in the differential diagnosis. Patient has been afebrile. Amiodarone changed to by mouth. Laboratory test showed WBC 22.2 and hemoglobin 8.9 Sodium 132 potassium 4.7 BUN 45 and creatinine 3.26 and phosphorus 9.8 Current medications reviewed. Objective - Vital Signs Vital signs: Vital Signs Temp 98.5 F 08/25/20 17:00 Pulse 79 08/25/20 20:17 Resp 13 08/25/20 19:00 BP 124/76 08/25/20 19:00 Pulse Ox 95 08/25/20 19:00 Intake & Output 08/25/20 08/25/20 08/26/20 06:59 18:59 06:59 Intake Total 701 1191.9 Output Total 75 3105 Balance 626 -1913.1 Weight 163.7 kg Intake: IV 117 123 0.9 90 120 Pressure Bag 27 3 Intake, IV Titration 200 300.9 Amount propofoL 1,000 mg In 200 300.9 Empty Bag 1 bag @ Titrate IV .Q0M [facility] Rx#: [id number] Tube Feeding 324 648 Other 60 120 Output: Urine 75 105 Hemodialysis 3000 Other: Voiding Method Indwelling Catheter Indwelling Catheter ABP, PAP, CO, CI - Last Documented Arterial Blood Pressure 120/60 - Exam PHYSICAL EXAMINATION: Patient is On mechanical ventilator and is sedated... HEENT: Normocephalic. Neck is supple. Pupils reactive. Nostrils clear. Oral cavity is moist. Ears reveal no drainage. Neck reveals no JVD, carotid bruits, or thyromegaly. CHEST EXAMINATION: Trachea is central. Symmetrical expansion. Bibasilar diminished air entry. No wheezing or rhonchi.. CARDIAC: Normal S1, S2 with no gallops. No murmurs ABDOMEN: Soft. Bowel sounds presentl. No organomegaly. No abdominal bruits. Extremities: reveal no edema. No clubbing or cyanosis Neurologically Patient is sedated and intubated. Skin: No rash or skin lesions. Psychiatric: Could not be assessed at this time. Musculoskeletal: No joint swelling or deformity. - Labs CBC & Chem 7: 08/26/20 03:47 08/26/20 03:47 Labs: Abnormal Lab Results - Last 24 Hours (Table) 08/25/20 08/25/20 08/25/20 Range/Units 00:02 04:31 04:31 WBC 22.2 H (3.8-10.6) k/uL RBC 2.88 L (3.80-5.40) m/uL Hgb 8.9 L (11.4-16.0) gm/dL Hct 23.3 L (34.0-46.0) % MCHC 38.1 H (31.0-37.0) g/dL RDW 16.3 H (11.5-15.5) % Neutrophils # (Manual) 19.50 H (1.3-7.7) k/uL Eosinophils # (Manual) 0.89 H (0-0.7) k/uL Metamyelocytes # (Man) 0.22 H (0) k/uL ABG O2 Saturation (94-97) % Sodium 132 L (137-145) mmol/L Carbon Dioxide 18 L (22-30) mmol/L BUN 45 H (7-17) mg/dL Creatinine 3.26 H (0.52-1.04) mg/dL Glucose 102 H (74-99) mg/dL POC Glucose (mg/dL) 120 H (75-99) mg/dL Calcium 7.9 L (8.4-10.2) mg/dL Phosphorus 9.8 H* (2.5-4.5) mg/dL AST 79 H (14-36) U/L Alkaline Phosphatase 254 H (38-126) U/L Albumin 2.8 L (3.5-5.0) g/dL Triglycerides (<150) mg/dL 08/25/20 08/25/20 08/25/20 Range/Units 05:35 06:30 10:25 WBC (3.8-10.6) k/uL RBC (3.80-5.40) m/uL Hgb (11.4-16.0) gm/dL Hct (34.0-46.0) % MCHC (31.0-37.0) g/dL RDW (11.5-15.5) % Neutrophils # (Manual) (1.3-7.7) k/uL Eosinophils # (Manual) (0-0.7) k/uL Metamyelocytes # (Man) (0) k/uL ABG O2 Saturation 98.4 H (94-97) % Sodium (137-145) mmol/L Carbon Dioxide (22-30) mmol/L BUN (7-17) mg/dL Creatinine (0.52-1.04) mg/dL Glucose (74-99) mg/dL POC Glucose (mg/dL) 119 H (75-99) mg/dL Calcium (8.4-10.2) mg/dL Phosphorus (2.5-4.5) mg/dL AST (14-36) U/L Alkaline Phosphatase (38-126) U/L Albumin (3.5-5.0) g/dL Triglycerides 1492 H (<150) mg/dL 08/25/20 08/25/20 Range/Units 12:12 18:44 WBC (3.8-10.6) k/uL RBC (3.80-5.40) m/uL Hgb (11.4-16.0) gm/dL Hct (34.0-46.0) % MCHC (31.0-37.0) g/dL RDW (11.5-15.5) % Neutrophils # (Manual) (1.3-7.7) k/uL Eosinophils # (Manual) (0-0.7) k/uL Metamyelocytes # (Man) (0) k/uL ABG O2 Saturation (94-97) % Sodium (137-145) mmol/L Carbon Dioxide (22-30) mmol/L BUN (7-17) mg/dL Creatinine (0.52-1.04) mg/dL Glucose (74-99) mg/dL POC Glucose (mg/dL) 129 H 126 H (75-99) mg/dL Calcium (8.4-10.2) mg/dL Phosphorus (2.5-4.5) mg/dL AST (14-36) U/L Alkaline Phosphatase (38-126) U/L Albumin (3.5-5.0) g/dL Triglycerides (<150) mg/dL Assessment and Plan Assessment: 1. Acute hypoxic respiratory failure requiring mechanical ventilation secondary to pneumonia. patient remains intubated and mechanically ventilated. 2. Sepsis, secondary to Streptococcal pneumonia. Status post bronchoscopy. 3. Paroxysmal atrial fibrillation with RVR 4. Cardiomyopathy, unknown if ischemic or nonischemic, EF 30-35% 5. Abnormal troponins, possible NSTEMI, may be secondary to hypoxia, sepsis, and/or afib with RVR, however can not rule out underlying coronary artery disease 6. Severe pulmonary hypertension 7. Acute kidney injury Secondary to ATN currently requiring hemodialysis 8. Hypotension requiring vasopressor support 9. History of asthma 10. Hypothyroidism 11. Morbid obesity with a BMI 56.3 PLAN: Patient is being continued on mechanical ventilation. Continue with antibiotics and hemodialysis as per nephrology. Anticoagulation is being changed to Eliquis and also on amiodarone. Prognosis guarded at this time. Further recommendations based on the clinical course. Time with Patient: Greater than 30
--- NOTE | 2020-08-26 22:40 | P.PN ---
Subjective Progress Note Date: 08/26/20 Principal diagnosis: Acute hypoxic respiratory failure requiring mechanical ventilation secondary to pneumonia Acute hypoxic/hypercapnic respiratory failure secondary to left lower lobe pneumonia with sepsis 55-year-old female patient was morbid obesity as well as multiple comorbid conditions who was admitted to the hospital with acute hypoxic respiratory failure secondary to pneumonia and she was intubated and placed on mechanical ventilation. Cardiology consulted to see the patient for further evaluation off tachycardia episode consistent with atrial fibrillation. The patient was seen this morning. She continues to be intubated on mechanical ventilation. Hemodynamically she is a stable and not requiring any vasopressors. She has been maintaining normal sinus mechanism. She is on amiodarone by mouth. Also she is on heparin IV. We will consider oral anticoag ulation was noted that the patient is not in process of having any further surgical procedure. Otherwise we will continue the current medical regimen. Please note that the echocardiogram revealed cardiomyopathy. Also the patient has been dialysis every day. 08/22/2020 Patient is seen and evaluated at bedside in ICU; patient remains on mechanical ventilation; remains sedated with propofol; continues to be hemodialyzed daily; intensive care and nephrology on board and managing ventilator and hemodialysis 08/23/2020 Patient is seen and evaluated in ICU; remains intubated; patient remains in and out of atrial fibrillation; cardiology is following and recommending to continue amiodarone and addition of metoprolol; heparin has been discontinued because of nosebleed; cardiology recommending to start small dose of oral anticoagulation; echocardiogram reveals EF of 35%; nephrology on board for dialysis 08/24/2020 Patient was admitted to the hospital on 08/16/2020 due to sepsis secondary to acute left lower lobe pneumonia. Currently patient is on mechanical ventilator and is intubated. Chest x-ray showed pulmonary edema and cardiomegaly. Increased interstitial infiltrates bilaterally in addition to her left lower lobe airspace disease. Patient developed acute kidney injury currently requiring hemodialysis. Patient is on c antibiotics in the form of Unasyn and anidulafungal. Patient is on amiodarone drip due to atrial fibrillation and rate is controlled with metoprolol. Anticoagulation has been changed from heparin drip to Eliquis. On tube feedings via NG tube. Patient is undergoing hemodialysis today. Laboratory data showed WBC count of 9.2, hemoglobin 9.0 and platelets 366 Sodium 129, potassium 3.9, chloride 97, BUN 52 and creatinine 4.12 and phosphorus 10.8 and calcium 7.1 Pulmonary and nephrology is on board. 08/25/2020 Patient remains on mechanical ventilation. Continued on antibiotics and antifungals. Tolerating tube feeding. Patient underwent hemodialysis yesterday. Chest x-ray showed diffuse pleural-parenchymal changes are stable could be on the basis of diffuse pneumonia pulmonary edema correlate clinically. ARDS in the differential diagnosis. Patient has been afebrile. Amiodarone changed to by mouth. Laboratory test showed WBC 22.2 and hemoglobin 8.9 Sodium 132 potassium 4.7 BUN 45 and creatinine 3.26 and phosphorus 9.8 08/26/2020 Patient is mechanical ventilator with assist control and is also sedated. Currently on 50% FiO2 Chest x-ray showed no evident complication status post bronchoscopy. Near complete opacification of left hemithorax., Which is likely secondary to mucous plug. Patient underwent bedside bronchoscopy and copious amounts of mucous plugs were aspirated and cultures were sent. Patient will be continued on Unas yn and anidulafungin. Laboratory test showed WBC improving to 17.5, hemoglobin 7.8 and platelets 383 BUN 32 and creatinine 3.12 blood sugar is controlled. Current medications reviewed. Objective - Vital Signs Vital signs: Vital Signs Temp 98 F 08/26/20 16:00 Pulse 77 08/26/20 19:00 Resp 20 08/26/20 19:00 BP 88/52 08/26/20 14:00 Pulse Ox 97 08/26/20 19:00 Intake & Output 08/26/20 08/26/20 08/27/20 06:59 18:59 06:59 Intake Total 804.13 756.363 118 Output Total 45 3535 0 Balance 759.13 -2778.637 118 Weight 158.2 kg 158.2 kg Intake: IV 110 120 10 0.9 110 120 10 Intake, IV Titration 94.13 138.363 Amount Dexmedetomidine/0.9% NaCl 94.13 138.363 (Pmx) 400 mcg In Empty Bag 1 bag @ Titrate IV . Q0M [facility] Rx#:[id number] Tube Feeding 540 468 108 Other 60 30 Output: Urine 45 35 0 Hemodialysis 3500 Other: Voiding Method Indwelling Catheter Indwelling Catheter Indwelling Catheter # Bowel Movements 1 ABP, PAP, CO, CI - Last Documented Arterial Blood Pressure 143/75 - Exam PHYSICAL EXAMINATION: Patient is On mechanical ventilator and is sedated... HEENT: Normocephalic. Neck is supple. Pupils reactive. Nostrils clear. Oral cavity is moist. Ears reveal no drainage. Neck reveals no JVD, carotid bruits, or thyromegaly. CHEST EXAMINATION: Trachea is central. Symmetrical expansion. Bibasilar diminished air entry. No wheezing or rhonchi.. CARDIAC: Normal S1, S2 with no gallops. No murmurs ABDOMEN: Soft. Bowel sounds presentl. No organomegaly. No abdominal bruits. Extremities: reveal no edema. No clubbing or cyanosis Neurologically Patient is sedated and intubated. Skin: No rash or skin lesions. Psychiatric: Could not be assessed at this time. Musculoskeletal: No joint swelling or deformity. - Labs CBC & Chem 7: 08/26/20 03:47 08/26/20 03:47 Labs: Abnormal Lab Results - Last 24 Hours (Table) 08/25/20 08/26/20 08/26/20 Range/Units 23:51 03:47 03:47 WBC 17.5 H (3.8-10.6) k/uL RBC 2.92 L (3.80-5.40) m/uL Hgb 7.8 L (11.4-16.0) gm/dL Hct 23.9 L (34.0-46.0) % RDW 16.5 H (11.5-15.5) % ABG pO2 (83-108) mmHg ABG O2 Saturation (94-97) % Carbon Dioxide 18 L (22-30) mmol/L BUN 32 H (7-17) mg/dL Creatinine 3.12 H (0.52-1.04) mg/dL Glucose 122 H (74-99) mg/dL POC Glucose (mg/dL) 132 H (75-99) mg/dL Calcium 8.0 L (8.4-10.2) mg/dL AST 89 H (14-36) U/L Alkaline Phosphatase 255 H (38-126) U/L Albumin 2.5 L (3.5-5.0) g/dL 08/26/20 08/26/20 08/26/20 Range/Units 05:41 05:50 12:46 WBC (3.8-10.6) k/uL RBC (3.80-5.40) m/uL Hgb (11.4-16.0) gm/dL Hct (34.0-46.0) % RDW (11.5-15.5) % ABG pO2 64 L (83-108) mmHg ABG O2 Saturation 92.0 L (94-97) % Carbon Dioxide (22-30) mmol/L BUN (7-17) mg/dL Creatinine (0.52-1.04) mg/dL Glucose (74-99) mg/dL POC Glucose (mg/dL) 158 H 110 H (75-99) mg/dL Calcium (8.4-10.2) mg/dL AST (14-36) U/L Alkaline Phosphatase (38-126) U/L Albumin (3.5-5.0) g/dL 08/26/20 Range/Units 17:43 WBC (3.8-10.6) k/uL RBC (3.80-5.40) m/uL Hgb (11.4-16.0) gm/dL Hct (34.0-46.0) % RDW (11.5-15.5) % ABG pO2 (83-108) mmHg ABG O2 Saturation (94-97) % Carbon Dioxide (22-30) mmol/L BUN (7-17) mg/dL Creatinine (0.52-1.04) mg/dL Glucose (74-99) mg/dL POC Glucose (mg/dL) 113 H (75-99) mg/dL Calcium (8.4-10.2) mg/dL AST (14-36) U/L Alkaline Phosphatase (38-126) U/L Albumin (3.5-5.0) g/dL Microbiology - Last 24 Hours (Table) 08/26/20 09:00 Bronchial Washings Culture - Preliminary Bronchoalviolar Lavage - Left 08/26/20 09:00 Acid Fast Bacilli Culture - Preliminary Bronchoalviolar Lavage - Left 08/26/20 09:00 Fungal Culture - Preliminary Bronchoalviolar Lavage - Left Assessment and Plan Assessment: 1. Acute hypoxic respiratory failure requiring mechanical ventilation secondary to pneumonia. patient remains intubated and mechanically ventilated. 2. Sepsis, secondary to Streptococcal pneumonia. Status post bronchoscopy. 3. Paroxysmal atrial fibrillation with RVR 4. Cardiomyopathy, unknown if ischemic or nonischemic, EF 30-35% 5. Abnormal troponins, possible NSTEMI, may be secondary to hypoxia, sepsis, and/or afib with RVR, however can not rule out underlying coronary artery disease 6. Severe pulmonary hypertension 7. Acute kidney injury Secondary to ATN currently requiring hemodialysis 8. Hypotension requiring vasopressor support 9. History of asthma 10. Hypothyroidism 11. Morbid obesity with a BMI 56.3 PLAN: Patient is being continued on mechanical ventilation. s/p bedside bronchoscopy and aspiration of mucus plugs. Continue with antibiotics in the form of unasyn. and hemodialysis as per nephrology. Anticoagulation is being changed to Eliquis and also on amiodarone. Prognosis guarded at this time. Further recommendations based on the clinical course. Time with Patient: Greater than 30
[2020-08-27 00:11] LABS: Glucose,Whole Blood 116 mg/dL (75-99)
[2020-08-27] MEDS: INSULIN ASPART (NovoLOG) 100 UNIT/ML VIAL SQ SCH ×4 (00:30→21:27)
[2020-08-27] MEDS: AMPICILLIN-SULBACTAM 3 GM in SODIUM CHLORIDE 0.9% 100 ML IVPB SCH ×2 (00:46→16:36)
[2020-08-27] MEDS: HYDROmorphone 1 MG/ML 1 ML SYRINGE IVP PRN ×2 (01:06→23:30)
[2020-08-27] MEDS: IPRATROPIUM-ALBUTEROL 3 ML NEB INHALATION SCH ×5 (03:55→19:35)
[2020-08-27 04:10] LABS: Anisocytosis Slight; HCT 22.4 % (34.0-46.0); HGB 7.5 gm/dL (11.4-16.0); MCH 27.4 pg (25.0-35.0); MCHC 33.5 g/dL (31.0-37.0); MCV 81.6 fL (80.0-100.0); Mean Platelet Volume 8.2; Platelet Count 419 k/uL (150-450); RBC 2.74 m/uL (3.80-5.40); RDW 16.8 % (11.5-15.5); WBC 19.6 k/uL (3.8-10.6)
[2020-08-27 04:27] LABS: Albumin 2.5 g/dL (3.5-5.0); Calcium 8.1 mg/dL (8.4-10.2); Phosphorus 7.7 mg/dL (2.5-4.5); Potassium 3.9 mmol/L (3.5-5.1); Total Bilirubin 0.8 mg/dL (0.2-1.3); Total Protein 6.6 g/dL (6.3-8.2)
[2020-08-27 05:27] LABS: Allen Test Performed? Yes
[2020-08-27 05:28] LABS: ABG Base Excess -0.7 mmol/L; ABG HCO3 25 mmol/L (21-25); ABG PCO2 42 mmHg (35-45); ABG PH 7.38 (7.35-7.45); ABG PO2 154 mmHg (83-108); ABG TCO2 26 mmol/L (19-24)
[2020-08-27 05:29] LABS: ABG Oxygen Saturation 99.9 % (94-97)
[2020-08-27] MEDS: LEVOTHYROXINE 100 MCG TAB PO SCH (05:37)
[2020-08-27] MEDS: CALCIUM ACETATE 667 MG TAB PO SCH ×3 (06:36→16:36)
[2020-08-27 06:51] LABS: Glucose,Whole Blood 130 mg/dL (75-99)
[2020-08-27] MEDS: BUDESONIDE 1 MG/2 ML NEBU INHALATION SCH ×2 (07:29→19:35)
[2020-08-27] MEDS: FORMOTEROL FUMARATE 20 MCG/2 ML NEBU INHALATION SCH ×2 (07:29→19:35)
--- NOTE | 2020-08-27 08:06 | XR ---
EXAMINATION TYPE: XR chest 1V portable DATE OF EXAM: 08/27/2020 COMPARISON: Chest x-ray 08/27/2020 HISTORY: Orogastric tube placement TECHNIQUE: Single frontal view of the chest is obtained. FINDINGS: There is been interval repositioning the orogastric tube, distal tip is coursing towards t he left upper quadrant. No other significant interval change. IMPRESSION: Orogastric tube tip is not included on the exam but is coursing into the region of the l eft hemiabdomen
--- NOTE | 2020-08-27 08:50 | XR ---
EXAMINATION TYPE: XR chest 1V portable DATE OF EXAM: 08/27/2020 COMPARISON: 08/26/2020 HISTORY: Cough TECHNIQUE: Single frontal view of the chest is obtained. FINDINGS: ET and NG tube noted. NG tube appears pulled back at the level of the midesophagus. Left P ICC line seen within a left-sided SVC. Diffuse interstitial pattern with bilateral pleural effusion a nd consolidation greater on the left. IMPRESSION: 1. Diffuse pleural parenchymal changes are stable. Correlate for pneumonia versus CHF. 2. NG tube has been pulled back to the level of the midesophagus correlate for repositioning.
[2020-08-27 12:02] LABS: Glucose,Whole Blood 108 mg/dL (75-99)
--- NOTE | 2020-08-27 12:36 | P.PN ---
Subjective Patient is seen in follow-up for acute kidney injury. She is currently hemodialysis dependent. She is intubated, on 50% FiO2. Not on vasopressors. Receiving tube feeding. Oliguric. Patient is not waking up despite being off sedation. Vital signs are stable. General: The patient appeared well nourished and normally developed. HEENT: Head exam is unremarkable. Intubated. LUNGS: Breath sounds decreased. HEART: Rate and Rhythm are regular. ABDOMEN: Soft, obese. EXTREMITITES: 2+ edema. Objective - Vital Signs Vital signs: Vital Signs Temp 98.9 F 08/27/20 12:27 Pulse 83 08/27/20 12:27 Resp 22 08/27/20 12:27 BP 138/56 08/27/20 12:27 Pulse Ox 99 08/27/20 12:00 Intake & Output 08/26/20 08/27/20 08/27/20 18:59 06:59 18:59 Intake Total 756.363 797.494 91.024 Output Total 3535 15 3500 Balance -2778.637 782.494 -3408.976 Weight 158.2 kg 157.4 kg Intake: IV 120 153 13 0.9 120 120 10 Pressure Bag 33 3 Intake, IV Titration 138.363 44.494 42.024 Amount Dexmedetomidine/0.9% NaCl 138.363 (Pmx) 400 mcg In Empty Bag 1 bag @ Titrate IV . Q0M [facility] Rx#:[id number] Dexmedetomidine/0.9% NaCl 44.494 42.024 (Pmx) 400 mcg In Empty Bag 1 bag @ Titrate IV . Q0M [facility] Rx#:[id number] Tube Feeding 468 540 36 Other 30 60 Output: Urine 35 15 0 Hemodialysis 3500 3500 Other: Voiding Method Indwelling Catheter Indwelling Catheter Indwelling Catheter ABP, PAP, CO, CI - Last Documented Arterial Blood Pressure 145/68 - Labs CBC & Chem 7: 08/27/20 03:45 08/27/20 03:45 Labs: Abnormal Lab Results - Last 24 Hours (Table) 08/26/20 08/26/20 08/27/20 Range/Units 12:46 17:43 00:09 WBC (3.8-10.6) k/uL RBC (3.80-5.40) m/uL Hgb (11.4-16.0) gm/dL Hct (34.0-46.0) % RDW (11.5-15.5) % ABG pO2 (83-108) mmHg ABG Total CO2 (19-24) mmol/L ABG O2 Saturation (94-97) % BUN (7-17) mg/dL Creatinine (0.52-1.04) mg/dL Glucose (74-99) mg/dL POC Glucose (mg/dL) 110 H 113 H 116 H (75-99) mg/dL Calcium (8.4-10.2) mg/dL Phosphorus (2.5-4.5) mg/dL AST (14-36) U/L Alkaline Phosphatase (38-126) U/L Albumin (3.5-5.0) g/dL 08/27/20 08/27/20 08/27/20 Range/Units 03:45 03:45 05:20 WBC 19.6 H (3.8-10.6) k/uL RBC 2.74 L (3.80-5.40) m/uL Hgb 7.5 L (11.4-16.0) gm/dL Hct 22.4 L (34.0-46.0) % RDW 16.8 H (11.5-15.5) % ABG pO2 154 H (83-108) mmHg ABG Total CO2 26 H (19-24) mmol/L ABG O2 Saturation 99.9 H (94-97) % BUN 32 H (7-17) mg/dL Creatinine 3.57 H (0.52-1.04) mg/dL Glucose 118 H (74-99) mg/dL POC Glucose (mg/dL) (75-99) mg/dL Calcium 8.1 L (8.4-10.2) mg/dL Phosphorus 7.7 H (2.5-4.5) mg/dL AST 95 H (14-36) U/L Alkaline Phosphatase 230 H (38-126) U/L Albumin 2.5 L (3.5-5.0) g/dL 08/27/20 08/27/20 Range/Units 06:32 12:00 WBC (3.8-10.6) k/uL RBC (3.80-5.40) m/uL Hgb (11.4-16.0) gm/dL Hct (34.0-46.0) % RDW (11.5-15.5) % ABG pO2 (83-108) mmHg ABG Total CO2 (19-24) mmol/L ABG O2 Saturation (94-97) % BUN (7-17) mg/dL Creatinine (0.52-1.04) mg/dL Glucose (74-99) mg/dL POC Glucose (mg/dL) 130 H 108 H (75-99) mg/dL Calcium (8.4-10.2) mg/dL Phosphorus (2.5-4.5) mg/dL AST (14-36) U/L Alkaline Phosphatase (38-126) U/L Albumin (3.5-5.0) g/dL Microbiology - Last 24 Hours (Table) 08/26/20 09:00 Acid Fast Bacilli Smear - Final Bronchoalviolar Lavage - Left Acid Fast Bacilli Culture - Preliminary 08/26/20 09:00 Gram Stain - Preliminary Bronchoalviolar Lavage - Left Bronchial Washings Culture - Preliminary 08/26/20 09:00 Fungal Culture - Preliminary Bronchoalviolar Lavage - Left Assessment and Plan Plan: Assessment: 1. Acute kidney injury, currently hemodialysis dependent. Etiology is ATN secondary to septic shock. Urine output 0-5 mL an hour. Baseline creatinine near 1. 2. Septic shock secondary to pneumonia. Status post bronchoscopy on August 26 with removal of mucous plug. Maintained on antibiotics. Off vasopressors. 3. Volume overload. Improving with ultrafiltration. 4. Metabolic acidosis secondary to acute kidney injury. Maintained on oral bicarb. Stable. 5. Hypervolemic hyponatremia. Improved with ultrafiltration. 6. Hyperphosphatemia secondary to acute kidney injury Maintained on PhosLo. Plan: Currently seen while undergoing hemodialysis. Continue with daily hemodialysis. Ultrafiltration 3-3-1/2 L. No response to IV Lasix given August 26. Wean FiO2. Continue to monitor renal function and urine output. Patient's dialysis catheter was placed August 20. Vascular surgery has been reconsulted for permacath placement.
[2020-08-27] MEDS: SODIUM BICARBONATE TAB 650 MG TAB PO SCH ×3 (13:52→21:48)
[2020-08-27] MEDS: AMIODARONE 200 MG TAB PO SCH ×2 (13:52→21:48)
[2020-08-27] MEDS: ASPIRIN 81 MG PO SCH (13:52)
[2020-08-27] MEDS: ERGOCALCIFEROL 50,000 UNIT CAP PO SCH (13:52)
[2020-08-27] MEDS: APIXABAN 2.5 MG TABLET PO SCH (13:52)
[2020-08-27] MEDS: PARoxetine 20 MG TAB PO SCH (13:52)
[2020-08-27] MEDS: ANIDULAFUNGIN 100 MG in SODIUM CHLORIDE 0.9% 100 ML IVPB SCH (13:52)
[2020-08-27] MEDS: PANTOPRAZOLE 40 MG/10 ML VIAL IVP SCH (13:53)
[2020-08-27] MEDS: CHLORHEXIDINE GLUCONATE 15 ML CUP MUCOUS MEM SCH ×2 (13:53→21:47)
[2020-08-27] MEDS: METOPROLOL TARTRATE 25 MG TAB PO SCH ×2 (13:53→21:48)
--- NOTE | 2020-08-27 14:21 | P.PN ---
Subjective Progress Note Date: 08/27/20 This is a 55-year-old female patient was hospitalized on 08/16/2020 with an acute left lower lobe pneumonia sepsis. Note that the patient has undergone a bronchoscopy on 08/17/2024 mucous plugs. The sepsis and the left lower lobe pneumonia was felt to be related to Streptococcus pneumonia. The Streptococcus pneumoniae was cultured in the sputum sample. Blood cultures of been negative. The patient was intubated, extubated on the same daily intubated has is that she has been on a mechanical ventilator. At this point in time, the patient is on a assist-control mode of using the VAC plus mode. The patient is respiratory rate of 350 tidal volume of 350 FiO2 of 50 and PEEP of 8. The i nspiratory time is at 0.9 seconds. The blood gases from today shows a pH of 7.27 with a pCO2 of 38 and pO2 93. The chest x-ray from today showing pulmonary edema along with cardiomegaly. There is increased interstitial infiltrates bilaterally in addition to her left lower lobe consolidation/airspace disease. ET tube remains in a good location. The patient is sedated with propofol which is running at 30 mics micrograms per kilogram per minute. The patient during the course of her treatment, developed an acute kidney injury, currently she is on hemodialysis last dialysis being on 08/22/2020 with a total of 3.5 L of fluid was ultrafiltrated. The patient is on growth spectrum antibiotics including a combination of IV Unasyn and the patient is also on IV Eraxis. In terms of hemodynamics, the patient is still pressor dependent. The neck fluid balance has been negative as the patient has been undergoing dialysis with ultrafiltration. The chest x-ray showing a left lower lobe consolidation With adequate positioning of the ET tube. The patient has an orogastric tube for enteral feeding and nutritional support and the patient also has a PICC line in the left upper extremity. The echo of the heart showed a moderate concentric LVH with an ejection fraction of 30-35%. There was mild aortic sclerosis and severe pulmonary hypertension with a PA pressure of 66 mmHg. The patient has been having also approximately atrial fibrillation. She is currently on oral amiodarone. She is also on metoprolol for rate control. She was on IV heparin was discontinued due to nosebleed subsequently the patient was started on oral anticoagulation with Eliquis. The patient's other comorbidities include obstructive sleep apnea and the patient has not been completely compliant to CPAP therapy, she has been morbidly obese, hypothyroid and history of bronchial asthma. The plan for today still undergo another session of hemodialysis with ultrafiltration. The white cell count remains elevated yet is down from yesterday is down to 29.2. On 08/25/2020 the patient is being seen for a follow-up. The patient remains on a mechanical ventilator. On today's evaluation, the patient is an assist- control mode at a rate of 26 with a tidal volume of 450 and FiO2 of 50% with a PEEP of 8. Blood gases from today showed a pH of 7.34 with a pCO2 of 36 and pO2 of 104 and this was on FiO2 of 50%. The patient is on propofol for sedation running at 55 mg per KG per minute. The patient is on normal saline at the rate of 20 mL an hour and the patient is also on vital high protein at the rate of 36 mL for enteral feeding and nutritional support. The patient underwent hemodialysis yesterday without a total of 3 L of fluid was removed. Urine output is low in the order of 15-20 mL. The chest x-ray still showing diffuse bilateral pulmonary infiltrates and CHF along with cardiomegaly anterolaterally unchanged compared to yesterday. The patient is afebrile. White cell count is down to 22. Hemoglobin stable at 8.9. Rest of the blood work shows a BUN of 45, creatinine 3.2, and the patient is a mild anion gap metabolic acidosis with a serum bicarb of 18. The triglyceride level came back at 1492. The patient's cardiac rhythm is sinus. The patient remains on antibiotic ventilation with Eliquis. On 08/26/2020, the patient is being seen for a follow-up. This morning, the patient is on Precedex. I'm glad to report to the patient's been off Diprivan and we will gradually going to wean off the Precedex and assess the patient's mental status. Precedex is running at 0.5 mg per KG per minute. The patient remains on a mechanical ventilator on assist control mode at the rate of 26 and a tidal volume of 450 and FiO2 of 50% with a PEEP of 6. PH is at 7.4 with a pCO2 of 37 and pO2 of 64. Chest x-ray shows volume loss and complete investigation of the left lung most likely secondary to a mucous plug as the patient has a cutoff sign in the distal left mainstem bronchus. Based on that, a bedside bronchoscopy was done and copious amounts of mucous plugs were aspirated from the left mainstem bronchus. There cultures were sent from the bronchioloalveolar lavage was obtained from the left lower lobe. Meanwhile, the patient remains on IV Unasyn. The patient is afebrile. The patient's hemoglobin is stable. The patient undergoing daily hemodialysis ultrafiltration and another session is planned for today. Note that following the bronchoscopy, [employer] chest x-ray was done and the patient did not show adequate expansion of the left lung. Based on that, increase the PEEP to 12 and a repeat chest x-rays to follow. The patient is tolerating enteral feeding for nutritional support with vital HP of 36 mL an hour. A repeat chest x-ray that was done later on in the afternoon showed reexpansion of the left lung although there is some ongoing basilar atelectasis on the basis On 08/27/2020, the patient demonstrates adequate expansion of the left lung although expect has not completed the patient continues to have some atelectatic changes and left lung base. I have her on a mechanical ventilator. I have on a PEEP of 12. Tidal volumes of 450 with a rate of 20 and an FiO2 of 50%. The blood gases from today showed adequate oxygenation with a pH of 7.38 with a pCO2 of 42 and pO2 of 154. The chest x-ray is showing interstitial infiltrates secondary to fluid overload/CHF. The left base is still atelectatic and there are probably some small bilateral pleural effusions. Nevertheless, the atelectasis that was related to the mucous plug has recovered. The patient is currently on Precedex which will be taken off her mental status will be assessed. She is afebrile. She will be undergoing another session of hemodialysis with ultrafiltration. Her volume status has improved considerably as the patient is receiving daily dialysis with ultrafiltration. She remains on enteral nutrition with vital high protein. My plan is to discontinue the sedation completely. Assess her mental status. Assessment weaning parameters. Her white cell count of 19.6 with a hemoglobin of 7.6. The rest of the carotids showed BUN of 32 with a creatinine of 3.57. Sodium is at 140 with a serum bicarb of 23. The patient remains on IV Unasyn. The patient also remains on E raxis per IDs recommendations. Objective - Vital Signs Vital signs: Vital Signs Temp 98.9 F 08/27/20 12:27 Pulse 83 08/27/20 12:27 Resp 22 08/27/20 12:27 BP 138/56 08/27/20 12:27 Pulse Ox 99 08/27/20 12:00 Intake & Output 08/26/20 08/27/20 08/27/20 18:59 06:59 18:59 Intake Total 756.363 797.494 91.024 Output Total 3535 15 3500 Balance -2778.637 782.494 -3408.976 Weight 158.2 kg 157.4 kg Intake: IV 120 153 13 0.9 120 120 10 Pressure Bag 33 3 Intake, IV Titration 138.363 44.494 42.024 Amount Dexmedetomidine/0.9% NaCl 138.363 (Pmx) 400 mcg In Empty Bag 1 bag @ Titrate IV . Q0M [facility] Rx#:[id number] Dexmedetomidine/0.9% NaCl 44.494 42.024 (Pmx) 400 mcg In Empty Bag 1 bag @ Titrate IV . Q0M [facility] Rx#:[id number] Tube Feeding 468 540 36 Other 30 60 Output: Urine 35 15 0 Hemodialysis 3500 3500 Other: Voiding Method Indwelling Catheter Indwelling Catheter Indwelling Catheter ABP, PAP, CO, CI - Last Documented Arterial Blood Pressure 145/68 - Exam Gen. appearance the patient is intubated, comfortable mechanical ventilator status the mechanical ventilator on assist control mode and orogastric and orotracheal tube are both in place. Patient is morbidly obese. Head exam was generally normal. There was no scleral icterus or corneal arcus. Mucous membranes were moist. Neck was supple and without jugular venous distension, thyromegaly, or carotid bruits. Carotids were easily palpable bilaterally. There was no adenopathy. My normal lungs breath sounds are quite diminished in the left lung base compared to the right. Cardiac exam revealed the PMI to be normally situated and sized. The rhythm was regular and no extrasystoles were noted during several minutes of auscultation. The first and second heart sounds were normal and physiologic splitting of the second heart sound was noted. There were no murmurs, rubs, clicks, or gallops. Abdominal exam revealed normal bowel sounds. The abdomen was soft, non-tender, and without masses, organomegaly, or appreciable enlargement of the abdominal aorta. Extremities revealed trace edema and there is clubbing and the patient has a PICC line in left upper extremity. The patient has edema in all 4 extremities and the patient has a Artline catheter in the right radial artery Neurologically the patient is sedated. The patient is calm and comfortable cigarettes with the mechanical ventilator. - Labs CBC & Chem 7: 08/27/20 03:45 08/27/20 03:45 Labs: Abnormal Lab Results - Last 24 Hours (Table) 08/26/20 08/27/20 08/27/20 Range/Units 17:43 00:09 03:45 WBC 19.6 H (3.8-10.6) k/uL RBC 2.74 L (3.80-5.40) m/uL Hgb 7.5 L (11.4-16.0) gm/dL Hct 22.4 L (34.0-46.0) % RDW 16.8 H (11.5-15.5) % ABG pO2 (83-108) mmHg ABG Total CO2 (19-24) mmol/L ABG O2 Saturation (94-97) % BUN (7-17) mg/dL Creatinine (0.52-1.04) mg/dL Glucose (74-99) mg/dL POC Glucose (mg/dL) 113 H 116 H (75-99) mg/dL Calcium (8.4-10.2) mg/dL Phosphorus (2.5-4.5) mg/dL AST (14-36) U/L Alkaline Phosphatase (38-126) U/L Albumin (3.5-5.0) g/dL 08/27/20 08/27/20 08/27/20 Range/Units 03:45 05:20 06:32 WBC (3.8-10.6) k/uL RBC (3.80-5.40) m/uL Hgb (11.4-16.0) gm/dL Hct (34.0-46.0) % RDW (11.5-15.5) % ABG pO2 154 H (83-108) mmHg ABG Total CO2 26 H (19-24) mmol/L ABG O2 Saturation 99.9 H (94-97) % BUN 32 H (7-17) mg/dL Creatinine 3.57 H (0.52-1.04) mg/dL Glucose 118 H (74-99) mg/dL POC Glucose (mg/dL) 130 H (75-99) mg/dL Calcium 8.1 L (8.4-10.2) mg/dL Phosphorus 7.7 H (2.5-4.5) mg/dL AST 95 H (14-36) U/L Alkaline Phosphatase 230 H (38-126) U/L Albumin 2.5 L (3.5-5.0) g/dL 08/27/20 Range/Units 12:00 WBC (3.8-10.6) k/uL RBC (3.80-5.40) m/uL Hgb (11.4-16.0) gm/dL Hct (34.0-46.0) % RDW (11.5-15.5) % ABG pO2 (83-108) mmHg ABG Total CO2 (19-24) mmol/L ABG O2 Saturation (94-97) % BUN (7-17) mg/dL Creatinine (0.52-1.04) mg/dL Glucose (74-99) mg/dL POC Glucose (mg/dL) 108 H (75-99) mg/dL Calcium (8.4-10.2) mg/dL Phosphorus (2.5-4.5) mg/dL AST (14-36) U/L Alkaline Phosphatase (38-126) U/L Albumin (3.5-5.0) g/dL Microbiology - Last 24 Hours (Table) 08/26/20 09:00 Gram Stain - Preliminary Bronchoalviolar Lavage - Left Bronchial Washings Culture - Preliminary 08/26/20 09:00 Acid Fast Bacilli Smear - Final Bronchoalviolar Lavage - Left Acid Fast Bacilli Culture - Preliminary 08/26/20 09:00 Fungal Culture - Preliminary Bronchoalviolar Lavage - Left Assessment and Plan Plan: 1 acute hypoxic respiratory failure secondary to left lower lobe pneumonia/sepsis. the chest x-ray from today shows complete opacification of t he left lung and the patient had extensive multiple mucous plugs in the left mainstem bronchus and these were suctioned out. Follow-up chest x-ray showed improvement in aeration of the left lung. The patient continues to be on a mechanical ventilator with a high PEEP of 12. Oxygenation is adequate. Left lung has expanded although there is some atelectatic changes and small effusion the lung bases bilaterally. The patient remains on IV Unasyn for now. Oxidation is improved. We'll proceed with a sedation holiday and assessment weaning parameters once the patient is more awake. 2 septic shock secondary to the left lower lobe pneumonia secondary to pneumococcus/strep pneumonia, currently on no pressors and the patient is completing a course of IV Unasyn 3 acute kidney injury currently hemodialysis dependent. the patient developed an acute kidney injury secondary to pneumonia/sepsis. The patient is requiring daily hemodialysis. Dialysis with ultrafiltration is being done a daily basis and today another session of hemodialysis ultrafiltration will be performed.. Noted the patient is undergoing daily dialysis ultrafiltration. The volume status is improved considerably and there is improvement in the edema in the upper and lower extremities. 4 morbid obesity 5 history of bronchial asthma 6 history obstructive sleep apnea noncompliant to CPAP therapy, would possibly the pickwickian syndrome 7 diabetes mellitus type 2, currently on a sliding scale coverage 8 hypothyroidism 9 CHF with impaired ejection fraction of 30-35%. This is considered to be a systolic heart failure, could be sepsis induced and the patient has a component of severe pulmonary hypertension. 10 persistent leukocytosis most likely improved compared to yesterday 11 non-anion gap metabolic acidosis, recovered 12 paroxysmal atrial fibrillation current rhythm is sinus 13 hypertriglyceridemia secondary to propofol infusion. The patient is currently off the propofol due to hypertriglyceridemia the patient is currently on Precedex. Noted the patient will be taken off the Precedex and the patient be given a sedation holiday. Plan Continue ventilator support, Drop the PEEP down to 5 Stop Precedex and check underlying mental status and consider obtaining weaning parameters as the patient is fully awake Dialysis with ultrafiltration will be done today. The patient will be having another session of hemodialysis ultrafiltration today. Continue antibiotics Monitor the white cell count Continue enteral feeding for nutritional support Condition is critical we'll continue to follow make further recommendations based on her progress. Critically care management was done more than 30 minutes. Time with Patient: Greater than 30
--- NOTE | 2020-08-27 21:47 | PN ---
PROGRESS NOTE DATE OF SERVICE: 08/27/2020 REASON FOR FOLLOWUP: 1. Aspiration pneumonia. 2. Possible oropharyngeal candidiasis. INTERVAL HISTORY: The patient is currently afebrile. The patient is hemodynamically stable. FiO2 is currently 50%. No significant purulent secretions through the ET or diarrhea reported. PHYSICAL EXAMINATION: Blood pressure 152/83 with a pulse of 89, temperature 98.1. She is 93% on 50% FiO2. General description is a middle-aged female intubated on the vent. RESPIRATORY SYSTEM: Unlabored breathing. Clear to auscultation anteriorly. HEART: S1, S2. Regular rate and rhythm. ABDOMEN: Soft. No tenderness. LABS: Hemoglobin 7.5, white count 19.6, BUN of 32, creatinine 3.57. Repeat bronchoscopy culture so far negative. DIAGNOSTIC IMPRESSION AND PLAN: 1. Patient with acute respiratory failure which is multifactorial in this patient with a component of pneumonia, likely aspiration in etiology. Patient is covered with Unasyn; dose adjusted by pharmacy; to continue. 2. Elevated white count, multifactorial, with a possible component of oropharyngeal candidiasis; covered with Eraxis, as the patient is on amiodarone. White count will be monitored closely. Continue supportive care. MMODL / IJN: [id number] /
[2020-08-27] MEDS: ATORVASTATIN 80 MG TAB PO SCH (21:48)
[2020-08-27] MEDS ORDERED: METOPROLOL TARTRATE 25 MG TAB PO STA (23:12)
[2020-08-28] MEDS: IPRATROPIUM-ALBUTEROL 3 ML NEB INHALATION SCH ×6 (00:21→19:20)
[2020-08-28 01:10] LABS: Glucose,Whole Blood 145 mg/dL (75-99)
[2020-08-28] MEDS: INSULIN ASPART (NovoLOG) 100 UNIT/ML VIAL SQ SCH ×4 (01:17→18:43)
[2020-08-28] MEDS: AMPICILLIN-SULBACTAM 3 GM in SODIUM CHLORIDE 0.9% 100 ML IVPB SCH ×2 (01:17→15:55)
[2020-08-28 05:01] LABS: Anisocytosis Slight; HCT 23.3 % (34.0-46.0); HGB 7.6 gm/dL (11.4-16.0); MCH 26.5 pg (25.0-35.0); MCHC 32.4 g/dL (31.0-37.0); MCV 81.7 fL (80.0-100.0); Mean Platelet Volume 8.9; Platelet Count 463 k/uL (150-450); RBC 2.85 m/uL (3.80-5.40); RDW 17.2 % (11.5-15.5); WBC 19.8 k/uL (3.8-10.6)
[2020-08-28 05:18] LABS: Albumin 2.6 g/dL (3.5-5.0); Calcium 8.3 mg/dL (8.4-10.2); Total Bilirubin 0.8 mg/dL (0.2-1.3)
[2020-08-28 05:53] LABS: ABG Base Excess 0.3 mmol/L; ABG HCO3 25 mmol/L (21-25); ABG Oxygen Saturation 97.6 % (94-97); ABG PCO2 42 mmHg (35-45); ABG PH 7.39 (7.35-7.45); ABG PO2 91 mmHg (83-108); ABG TCO2 27 mmol/L (19-24); Allen Test Performed? Yes
[2020-08-28 08:04] LABS: Glucose,Whole Blood 155 mg/dL (75-99)
[2020-08-28] MEDS: BUDESONIDE 1 MG/2 ML NEBU INHALATION SCH ×2 (08:06→19:20)
[2020-08-28] MEDS: FORMOTEROL FUMARATE 20 MCG/2 ML NEBU INHALATION SCH ×2 (08:07→19:20)
[2020-08-28] MEDS: CALCIUM ACETATE 667 MG TAB PO SCH ×3 (08:10→16:37)
[2020-08-28] MEDS: LEVOTHYROXINE 100 MCG TAB PO SCH (08:10)
[2020-08-28] MEDS: PANTOPRAZOLE 40 MG/10 ML VIAL IVP SCH (08:36)
[2020-08-28] MEDS: CHLORHEXIDINE GLUCONATE 15 ML CUP MUCOUS MEM SCH ×2 (08:36→20:29)
[2020-08-28] MEDS: ANIDULAFUNGIN 100 MG in SODIUM CHLORIDE 0.9% 100 ML IVPB SCH (08:36)
[2020-08-28] MEDS: METOPROLOL TARTRATE 25 MG TAB PO SCH ×2 (08:37→20:29)
[2020-08-28] MEDS: SODIUM BICARBONATE TAB 650 MG TAB PO SCH ×3 (08:37→20:29)
[2020-08-28] MEDS: PARoxetine 20 MG TAB PO SCH (08:37)
[2020-08-28] MEDS: HYDROmorphone 1 MG/ML 1 ML SYRINGE IVP PRN ×3 (08:37→21:56)
[2020-08-28] MEDS: ERGOCALCIFEROL 50,000 UNIT CAP PO SCH (08:37)
[2020-08-28] MEDS: ASPIRIN 81 MG PO SCH (08:37)
[2020-08-28] MEDS: AMIODARONE 200 MG TAB PO SCH ×2 (08:37→20:29)
--- NOTE | 2020-08-28 10:06 | XR ---
EXAMINATION TYPE: XR chest 1V portable DATE OF EXAM: 08/28/2020 COMPARISON: Prior chest x-ray 08/27/2020 HISTORY: Intubated TECHNIQUE: Single frontal view of the chest is obtained. FINDINGS: Endotracheal tube, NG tube, left-sided PICC line are overlying appropriate positions. Ther e is worsening increased density in the left upper lobe. No evident pneumothorax. Heart is obscured. IMPRESSION: Worsening atelectasis versus pneumonia.
[2020-08-28 12:40] LABS: Glucose,Whole Blood 137 mg/dL (75-99)
--- NOTE | 2020-08-28 12:54 | P.PN ---
Subjective Patient is seen in follow-up for acute kidney injury. She is currently hemodialysis dependent. She is intubated, on 50% FiO2. Not on vasopressors. Receiving tube feeding. Oliguric. Per the nurse she was a little bit more responsive this morning. Scheduled for trach and PEG tube placement on Monday. Vital signs are stable. General: The patient appeared well nourished and normally developed. HEENT: Head exam is unremarkable. Intubated. LUNGS: Breath sounds decreased. HEART: Rate and Rhythm are regular. ABDOMEN: Soft, obese. EXTREMITITES: 2+ edema. Objective - Vital Signs Vital signs: Vital Signs Temp 98.7 F 08/28/20 12:00 Pulse 81 08/28/20 12:00 Resp 18 08/28/20 12:00 BP 138/56 08/27/20 12:27 Pulse Ox 95 08/28/20 12:00 Intake & Output 08/27/20 08/28/20 08/28/20 18:59 06:59 18:59 Intake Total 91.024 969 234 Output Total 3505 50 15 Balance -3413.976 919 219 Weight 157.1 kg 157.1 kg Intake: IV 13 243 78 0.9 10 110 60 Ampicillin-Sulbactam 3 gm 100 In Sodium Chloride 0.9% 100 ml @ 200 mls/hr IVPB Q12H [facility] Rx#:[id number] Pressure Bag 3 33 18 Intake, IV Titration 42.024 100 Amount Anidulafungin 100 mg In 100 Sodium Chloride 0.9% 100 ml @ 84 mls/hr IVPB DAILY [facility] Rx#:[id number] Dexmedetomidine/0.9% NaCl 42.024 (Pmx) 400 mcg In Empty Bag 1 bag @ Titrate IV . Q0M [facility] Rx#:[id number] Tube Feeding 36 576 56 Other 150 Output: Urine 5 50 15 Hemodialysis 3500 Other: Voiding Method Indwelling Catheter Indwelling Catheter # Bowel Movements 1 1 ABP, PAP, CO, CI - Last Documented Arterial Blood Pressure 109/51 - Labs CBC & Chem 7: 08/28/20 04:50 08/28/20 04:50 Labs: Abnormal Lab Results - Last 24 Hours (Table) 08/28/20 08/28/20 08/28/20 Range/Units 01:08 04:50 04:50 WBC 19.8 H (3.8-10.6) k/uL RBC 2.85 L (3.80-5.40) m/uL Hgb 7.6 L (11.4-16.0) gm/dL Hct 23.3 L (34.0-46.0) % RDW 17.2 H (11.5-15.5) % Plt Count 463 H (150-450) k/uL ABG Total CO2 (19-24) mmol/L ABG O2 Saturation (94-97) % Chloride 108 H (98-107) mmol/L BUN 43 H (7-17) mg/dL Creatinine 4.17 H (0.52-1.04) mg/dL Glucose 124 H (74-99) mg/dL POC Glucose (mg/dL) 145 H (75-99) mg/dL Calcium 8.3 L (8.4-10.2) mg/dL AST 137 H (14-36) U/L Alkaline Phosphatase 253 H (38-126) U/L Albumin 2.6 L (3.5-5.0) g/dL 08/28/20 08/28/20 08/28/20 Range/Units 05:50 08:03 12:38 WBC (3.8-10.6) k/uL RBC (3.80-5.40) m/uL Hgb (11.4-16.0) gm/dL Hct (34.0-46.0) % RDW (11.5-15.5) % Plt Count (150-450) k/uL ABG Total CO2 27 H (19-24) mmol/L ABG O2 Saturation 97.6 H (94-97) % Chloride (98-107) mmol/L BUN (7-17) mg/dL Creatinine (0.52-1.04) mg/dL Glucose (74-99) mg/dL POC Glucose (mg/dL) 155 H 137 H (75-99) mg/dL Calcium (8.4-10.2) mg/dL AST (14-36) U/L Alkaline Phosphatase (38-126) U/L Albumin (3.5-5.0) g/dL Microbiology - Last 24 Hours (Table) 08/26/20 09:00 Gram Stain - Final Bronchoalviolar Lavage - Left Bronchial Washings Culture - Final Assessment and Plan Plan: Assessment: 1. Acute kidney injury, currently hemodialysis dependent. Etiology is ATN secondary to septic shock. Urine output 0-5 mL an hour. Baseline creatinine near 1. 2. Septic shock secondary to pneumonia. Status post bronchoscopy on August 26 with removal of mucous plug. Maintained on antibiotics. Off vasopressors. 3. Volume overload. Improving with ultrafiltration. 4. Metabolic acidosis secondary to acute kidney injury. Maintained on oral bicarb. Stable. 5. Hypervolemic hyponatremia. Improved with ultrafiltration. 6. Hyperphosphatemia secondary to acute kidney injury Maintained on PhosLo. 7. Anemia. Component of underlying renal disease. Plan: Continue with daily hemodialysis. Ultrafiltration 3-3-1/2 L. No response to IV Lasix given August 26. Wean FiO2. Add Aranesp. Continue to monitor renal function and urine output. Patient's dialysis catheter was placed August 20. Vascular surgery has been reconsulted for permacath placement - will be done tomorrow. Scheduled for tracheostomy and PEG tube placement on Monday.
--- NOTE | 2020-08-28 14:00 | P.PN ---
Subjective Progress Note Date: 08/28/20 This is a 55-year-old female patient was hospitalized on 08/16/2020 with an acute left lower lobe pneumonia sepsis. Note that the patient has undergone a bronchoscopy on 08/17/2024 mucous plugs. The sepsis and the left lower lobe pneumonia was felt to be related to Streptococcus pneumonia. The Streptococcus pneumoniae was cultured in the sputum sample. Blood cultures of been negative. The patient was intubated, extubated on the same daily intubated has is that she has been on a mechanical ventilator. At this point in time, the patient is on a assist-control mode of using the VAC plus mode. The patient is respiratory rate of 350 tidal volume of 350 FiO2 of 50 and PEEP of 8. The i nspiratory time is at 0.9 seconds. The blood gases from today shows a pH of 7.27 with a pCO2 of 38 and pO2 93. The chest x-ray from today showing pulmonary edema along with cardiomegaly. There is increased interstitial infiltrates bilaterally in addition to her left lower lobe consolidation/airspace disease. ET tube remains in a good location. The patient is sedated with propofol which is running at 30 mics micrograms per kilogram per minute. The patient during the course of her treatment, developed an acute kidney injury, currently she is on hemodialysis last dialysis being on 08/22/2020 with a total of 3.5 L of fluid was ultrafiltrated. The patient is on growth spectrum antibiotics including a combination of IV Unasyn and the patient is also on IV Eraxis. In terms of hemodynamics, the patient is still pressor dependent. The neck fluid balance has been negative as the patient has been undergoing dialysis with ultrafiltration. The chest x-ray showing a left lower lobe consolidation With adequate positioning of the ET tube. The patient has an orogastric tube for enteral feeding and nutritional support and the patient also has a PICC line in the left upper extremity. The echo of the heart showed a moderate concentric LVH with an ejection fraction of 30-35%. There was mild aortic sclerosis and severe pulmonary hypertension with a PA pressure of 66 mmHg. The patient has been having also approximately atrial fibrillation. She is currently on oral amiodarone. She is also on metoprolol for rate control. She was on IV heparin was discontinued due to nosebleed subsequently the patient was started on oral anticoagulation with Eliquis. The patient's other comorbidities include obstructive sleep apnea and the patient has not been completely compliant to CPAP therapy, she has been morbidly obese, hypothyroid and history of bronchial asthma. The plan for today still undergo another session of hemodialysis with ultrafiltration. The white cell count remains elevated yet is down from yesterday is down to 29.2. On 08/25/2020 the patient is being seen for a follow-up. The patient remains on a mechanical ventilator. On today's evaluation, the patient is an assist- control mode at a rate of 26 with a tidal volume of 450 and FiO2 of 50% with a PEEP of 8. Blood gases from today showed a pH of 7.34 with a pCO2 of 36 and pO2 of 104 and this was on FiO2 of 50%. The patient is on propofol for sedation running at 55 mg per KG per minute. The patient is on normal saline at the rate of 20 mL an hour and the patient is also on vital high protein at the rate of 36 mL for enteral feeding and nutritional support. The patient underwent hemodialysis yesterday without a total of 3 L of fluid was removed. Urine output is low in the order of 15-20 mL. The chest x-ray still showing diffuse bilateral pulmonary infiltrates and CHF along with cardiomegaly anterolaterally unchanged compared to yesterday. The patient is afebrile. White cell count is down to 22. Hemoglobin stable at 8.9. Rest of the blood work shows a BUN of 45, creatinine 3.2, and the patient is a mild anion gap metabolic acidosis with a serum bicarb of 18. The triglyceride level came back at 1492. The patient's cardiac rhythm is sinus. The patient remains on antibiotic ventilation with Eliquis. On 08/26/2020, the patient is being seen for a follow-up. This morning, the patient is on Precedex. I'm glad to report to the patient's been off Diprivan and we will gradually going to wean off the Precedex and assess the patient's mental status. Precedex is running at 0.5 mg per KG per minute. The patient remains on a mechanical ventilator on assist control mode at the rate of 26 and a tidal volume of 450 and FiO2 of 50% with a PEEP of 6. PH is at 7.4 with a pCO2 of 37 and pO2 of 64. Chest x-ray shows volume loss and complete investigation of the left lung most likely secondary to a mucous plug as the patient has a cutoff sign in the distal left mainstem bronchus. Based on that, a bedside bronchoscopy was done and copious amounts of mucous plugs were aspirated from the left mainstem bronchus. There cultures were sent from the bronchioloalveolar lavage was obtained from the left lower lobe. Meanwhile, the patient remains on IV Unasyn. The patient is afebrile. The patient's hemoglobin is stable. The patient undergoing daily hemodialysis ultrafiltration and another session is planned for today. Note that following the bronchoscopy, [employer] chest x-ray was done and the patient did not show adequate expansion of the left lung. Based on that, increase the PEEP to 12 and a repeat chest x-rays to follow. The patient is tolerating enteral feeding for nutritional support with vital HP of 36 mL an hour. A repeat chest x-ray that was done later on in the afternoon showed reexpansion of the left lung although there is some ongoing basilar atelectasis on the basis On 08/27/2020, the patient demonstrates adequate expansion of the left lung although expect has not completed the patient continues to have some atelectatic changes and left lung base. I have her on a mechanical ventilator. I have on a PEEP of 12. Tidal volumes of 450 with a rate of 20 and an FiO2 of 50%. The blood gases from today showed adequate oxygenation with a pH of 7.38 with a pCO2 of 42 and pO2 of 154. The chest x-ray is showing interstitial infiltrates secondary to fluid overload/CHF. The left base is still atelectatic and there are probably some small bilateral pleural effusions. Nevertheless, the atelectasis that was related to the mucous plug has recovered. The patient is currently on Precedex which will be taken off her mental status will be assessed. She is afebrile. She will be undergoing another session of hemodialysis with ultrafiltration. Her volume status has improved considerably as the patient is receiving daily dialysis with ultrafiltration. She remains on enteral nutrition with vital high protein. My plan is to discontinue the sedation completely. Assess her mental status. Assessment weaning parameters. Her white cell count of 19.6 with a hemoglobin of 7.6. The rest of the carotids showed BUN of 32 with a creatinine of 3.57. Sodium is at 140 with a serum bicarb of 23. The patient remains on IV Unasyn. The patient also remains on E raxis per IDs recommendations. 08/28/2020, the patient continues to have issues most significant of which is the recurrent collapse of the left lung as the patient's chest x-ray from today shows complete opacification of the left lung. Based on that, an emergent bronchoscopy was done at the bedside and the patient continued to have significant amount of mucous plugs that was evacuated from the left lung. Patency of the airway was achieved. The second problem isn't altered mentation as the patient is not recovering well off the sedation and the patient has been off the sedation for the past 24 hours. On today's evaluation, she does some minimal amount of grimacing upon painful stimulation. Nevertheless, the patient is not following any significant commands. She is not opening her eyes spontaneously. No purposeful movement has been documented by the nursing staff. The patient remains on a mechanical ventilator. The patient currently is on a assist-control mode rate of 20 with a tidal volume of 450 and FiO2 50% with a PEEP of 5. She is on lovastatin rate of 20 mL an hour. Cardiac rhythm is sinus. There are diminished breath on the left. The third spacing and the edema is improved considerably as the patient underwent daily hemodialysis. No fever. Remains on IV Unasyn. No other significant events over the past 24 hours for now. The patient is still receiving enteral feeding for nutritional support. She is tolerating a diet without any major difficulties. Objective - Vital Signs Vital signs: Vital Signs Temp 98.7 F 08/28/20 12:00 Pulse 81 08/28/20 12:00 Resp 18 08/28/20 12:00 BP 138/56 08/27/20 12:27 Pulse Ox 95 08/28/20 12:00 Intake & Output 08/27/20 08/28/20 08/28/20 18:59 06:59 18:59 Intake Total 91.024 969 234 Output Total 3505 50 15 Balance -3413.976 919 219 Weight 157.1 kg 157.1 kg Intake: IV 13 243 78 0.9 10 110 60 Ampicillin-Sulbactam 3 gm 100 In Sodium Chloride 0.9% 100 ml @ 200 mls/hr IVPB Q12H [facility] Rx#:[id number] Pressure Bag 3 33 18 Intake, IV Titration 42.024 100 Amount Anidulafungin 100 mg In 100 Sodium Chloride 0.9% 100 ml @ 84 mls/hr IVPB DAILY [facility] Rx#:[id number] Dexmedetomidine/0.9% NaCl 42.024 (Pmx) 400 mcg In Empty Bag 1 bag @ Titrate IV . Q0M [facility] Rx#:[id number] Tube Feeding 36 576 56 Other 150 Output: Urine 5 50 15 Hemodialysis 3500 Other: Voiding Method Indwelling Catheter Indwelling Catheter # Bowel Movements 1 1 ABP, PAP, CO, CI - Last Documented Arterial Blood Pressure 109/51 - Exam Gen. appearance the patient is intubated, comfortable mechanical ventilator status the mechanical ventilator on assist control mode and orogastric and orotracheal tube are both in place. Patient is morbidly obese. Head exam was generally normal. There was no scleral icterus or corneal arcus. Mucous membranes were moist. Neck was supple and without jugular venous distension, thyromegaly, or carotid bruits. Carotids were easily palpable bilaterally. There was no adenopathy. My normal lungs breath sounds are quite diminished in the left lung base compared to the right. Cardiac exam revealed the PMI to be normally situated and sized. The rhythm was regular and no extrasystoles were noted during several minutes of auscultation. The first and second heart sounds were normal and physiologic splitting of the second heart sound was noted. There were no murmurs, rubs, clicks, or gallops. Abdominal exam revealed normal bowel sounds. The abdomen was soft, non-tender, and without masses, organomegaly, or appreciable enlargement of the abdominal aorta. Extremities revealed trace edema and there is clubbing and the patient has a PICC line in left upper extremity. The patient has edema in all 4 extremities and the patient has a Artline catheter in the right radial artery Neurologically the patient is sedated. The patient is calm and comfortable cigarettes with the mechanical ventilator. - Labs CBC & Chem 7: 08/28/20 04:50 08/28/20 04:50 Labs: Abnormal Lab Results - Last 24 Hours (Table) 08/28/20 08/28/20 08/28/20 Range/Units 01:08 04:50 04:50 WBC 19.8 H (3.8-10.6) k/uL RBC 2.85 L (3.80-5.40) m/uL Hgb 7.6 L (11.4-16.0) gm/dL Hct 23.3 L (34.0-46.0) % RDW 17.2 H (11.5-15.5) % Plt Count 463 H (150-450) k/uL ABG Total CO2 (19-24) mmol/L ABG O2 Saturation (94-97) % Chloride 108 H (98-107) mmol/L BUN 43 H (7-17) mg/dL Creatinine 4.17 H (0.52-1.04) mg/dL Glucose 124 H (74-99) mg/dL POC Glucose (mg/dL) 145 H (75-99) mg/dL Calcium 8.3 L (8.4-10.2) mg/dL AST 137 H (14-36) U/L Alkaline Phosphatase 253 H (38-126) U/L Albumin 2.6 L (3.5-5.0) g/dL 08/28/20 08/28/20 08/28/20 Range/Units 05:50 08:03 12:38 WBC (3.8-10.6) k/uL RBC (3.80-5.40) m/uL Hgb (11.4-16.0) gm/dL Hct (34.0-46.0) % RDW (11.5-15.5) % Plt Count (150-450) k/uL ABG Total CO2 27 H (19-24) mmol/L ABG O2 Saturation 97.6 H (94-97) % Chloride (98-107) mmol/L BUN (7-17) mg/dL Creatinine (0.52-1.04) mg/dL Glucose (74-99) mg/dL POC Glucose (mg/dL) 155 H 137 H (75-99) mg/dL Calcium (8.4-10.2) mg/dL AST (14-36) U/L Alkaline Phosphatase (38-126) U/L Albumin (3.5-5.0) g/dL Microbiology - Last 24 Hours (Table) 08/26/20 09:00 Gram Stain - Final Bronchoalviolar Lavage - Left Bronchial Washings Culture - Final Assessment and Plan Plan: 1 acute hypoxic respiratory failure secondary to left lower lobe pneumonia/sepsis. The patient continues to have recurrent mucous plugs obstructing the left lung with secondary left lung atelectasis. The patient underwent a bronchoscopy 2 days ago and the second bronchoscopy was done today with therapeutic airway suctioning and removal of mucous plugs from the left mainstem bronchus. Repeat cultures from the bronchial aspirates came back negative for any bacterial growth. The patient is still on IV Unasyn. The patient remains on a mechanical ventilator. The patient is oxygenating and ventilating well for now and a blood gas was noted. An immediate bronchoscopy was done for therapeutic airway suctioning. 2 septic shock secondary to the left lower lobe pneumonia secondary to pneumococcus/strep pneumonia, currently on no pressors and the patient is completing a course of IV Unasyn 3 acute kidney injury currently hemodialysis dependent. the patient developed an acute kidney injury secondary to pneumonia/sepsis. The patient is requiring daily hemodialysis. There is significant improvement in the volume status and the third spacing as the patient underwent daily hemodialysis. 4 morbid obesity 5 history of bronchial asthma 6 history obstructive sleep apnea noncompliant to CPAP therapy, would possibly the pickwickian syndrome 7 diabetes mellitus type 2, currently on a sliding scale coverage 8 hypothyroidism 9 CHF with impaired ejection fraction of 30-35%. This is considered to be a systolic heart failure, could be sepsis induced and the patient has a component of severe pulmonary hypertension. 10 persistent leukocytosis most likely improved compared to yesterday 11 non-anion gap metabolic acidosis, recovered 12 paroxysmal atrial fibrillation current rhythm is sinus 13 hypertriglyceridemia secondary to propofol infusion. Note that the patient has been off sedation for the past 24 hours. Propofol was discontinued. Precedex has been discontinued. 14 encephalopathy, most likely drug induced. Plan Continue ventilator support, Repeat bronchoscopy was done and removal of mucous plugs from the left mainstem bronchus was performed. Keep the patient off sedation for now Monitor mental status Continue antibiotic coverage Continue hemodialysis per nephrology I think this will be a prolonged course and for that reason I contacted the and discussed with him the possibility of having a PEG tube insertion of tracheostomy tube insertion as the patient may be a very difficult extubation based on her body habitus, based on her underlying obstructive sleep apnea short neck and based on the recurrent complications of left lung collapse secondary mucous plugs. Furthermore, she is quite weak and encephalopathic probably related to extensive drug/sedative use. Based on that, I'm recommending a PEG and trach and the rationale was extended to the at length. He was agreeable. Gen. surgery was consulted. Continue enteral feeding for nutritional support Condition is critical we'll continue to follow make further recommendations based on her progress. Critically care management was done more than 30 minutes. Time with Patient: Greater than 30
--- NOTE | 2020-08-28 14:02 | P.PCN ---
Date of Procedure: 08/28/20 Preoperative Diagnosis: Recurrent left lung collapse/mucous plugs Postoperative Diagnosis: Recurrent left lung collapse/mucous plug Procedure(s) Performed: Flexible bronchoscopy, therapeutic airway suctioning, removal of mucous plugs Anesthesia: none Surgeon: Vikki Ray Estimated Blood Loss (ml): 0 Pathology: none sent Condition: critical Disposition: ICU Operative Findings: his procedure was done in the intensive care unit. The patient was already intubated on a mechanical ventilator. The patient will be placed on 100% percent FiO2. The procedure was done was the patient is fully mechanically ventilated adequately oxygenated and ventilated. No sedatives has been using the patient was quite somnolent and encephalopathic while being off sedation for the past 24 hours. The patient is currently intubated with a #8 orotracheal tube. An adapter was attached to the orotracheal tube and following that the bronchoscope was advanced into the lower trachea. Examination of the tracheal bronchial tree was done. The tip of the ET tube was seen around 2 cm above the rashid. Examination of the distal trachea, right mainstem bronchus, right upper lobe bronchus, bronchus reason the right lower lobe bronchus was within normal limits. Following that, the bronchoscope was moved to the left and there was large amount of mucous plug occupying the left mainstem bronchus. The secretions were irrigated with saline and all of the mucous plug was taken out. At the completion of the procedure, airway patency was achieved including the left mainstem bronchus, left upper lobe bronchus and left lower lobe bronchus. There is a segment of the left lower lobe atelectatic. No complications the patient tolerated the procedure well. No oxygen desaturation. No hemodynamic instability. Bronchoscope was removed. The procedure was terminated. The follow-up chest x-rays to be done.
--- NOTE | 2020-08-28 14:11 | P.GSCN ---
History of Present Illness Consult date: 08/28/20 History of present illness: CHIEF COMPLAINT: Shortness of breath HISTORY OF PRESENT ILLNESS: This is a 55-year-old female with past medical history of asthma, sleep apnea, hypothyroidism, morbid obesity, hysterectomy and bladder surgery. Patient presented to the hospital with complaints of shortness of breath. She did develop acute hypoxic respiratory failure secondary to pneumonia and requiring mechanical ventilation. Patient remains in the ICU and on mechanical ventilation. She's also developed acute kidney injury due to her sepsis and pneumonia and has been started on hemodialysis during this admission. She is currently off of any vasopressors and sedation. Surgery has been consulted for trach and PEG tube placement. Patient is receiving hemodialysis today. Patient has been having episodes of atrial fibrillation and has been placed on Eliquis for anticoagulation during this admission. Eliquis is currently on hold she is scheduled for permacath placement tomorrow. Patient also had bronchoscopy on 08/26/2020 with removal of mucous plug. PAST MEDICAL HISTORY: See list. PAST SURGICAL HISTORY: See list. MEDICATIONS: See list. ALLERGIES: See list. SOCIAL HISTORY: No illicit drug use. REVIEW OF SYSTEMS: CONSTITUTIONAL: Denies fever or chills. HEENT: Denies blurred vision, vision changes, or eye pain. Denies hemoptysis CARDIOVASCULAR: Denies chest pain or pressure. RESPIRATORY: No shortness of breath. GASTROINTESTINAL: See HPI for pertinent findings HEMATOLOGIC: Denies bleeding disorders. GENITOURINARY: Denies any blood in urine or increased urinary frequency. SKIN: Denies pruitis. Denies rash. PHYSICAL EXAM: VITAL SIGNS: Reviewed GENERAL: Well-developed in no acute distress. HEENT: No sclera icterus. Extraocular movements grossly intact. Moist buccal mucosa. Head is atraumatic, normocephalic. No nasal drainage. Intubated ABDOMEN: Soft. Obese. Nondistended. Nontender with palpation LABORATORY DATA: WBC 19.8 hemoglobin 7.6 platelets 463 creatinine 4.17 AST 137 ALT 253 IMAGING: Chest x-ray worsening atelectasis versus pneumonia ASSESSMENT: 1. Acute hypoxic respiratory failure secondary to left lower lobe pneumonia and sepsis 2. Severe protein calorie malnutrition 3. Sepsis shock secondary to pneumonia 4. Acute kidney injury currently hemodialysis dependent. Nephrology following 5. Paroxysmal atrial fibrillation PLAN: -Patient is scheduled for tracheostomy and PEG tube placement on 08/31/[address] Mckinley -Hold tube feedings after midnight on 08/30/2020 -Continue to hold Eliquis for procedure on Monday Thank you for this consultation Physician Waiter/Waitress Informal note has been reviewed by physician. Signing provider agrees with the documented findings, assessment, and plan of care. Past Medical History Past Medical History: Asthma, Sleep Apnea/CPAP/BIPAP, Thyroid Disorder Additional Past Medical History / Comment(s): Morbid obesity, obstructive sleep apnea, bronchial asthma, hypothyroidism, recent hospitalization for a left lung pneumonia and January 2017. History of Any Multi-Drug Resistant Organisms: None Reported Past Surgical History: Bladder Surgery, Hysterectomy Past Anesthesia/Blood Transfusion Reactions: No Reported Reaction Past Psychological History: Anxiety Past Alcohol Use History: None Reported Past Drug Use History: None Reported - Past Family History Mother Family Medical History: CVA/TIA, Diabetes Mellitus, Myocardial Infarction ([place]) Medications and Allergies Home Medications Medication Instructions Recorded Confirmed Type Fluticasone Nasal [place] [Flonase 1 spray EA NOSTRIL DAILY 01/19/17 08/15/20 History Nasal [place]] Fluticasone/Salmeterol [Advair 1 puff INHALATION RT-BID 01/19/17 08/15/20 History 500-50 Diskus] Levothyroxine Sodium [Synthroid] 200 mcg PO DAILY 01/19/17 08/15/20 History Zafirlukast 20 mg PO BID 01/19/17 08/15/20 History Albuterol Inhaler [Ventolin Hfa 2 puff INHALATION RT-Q4H PRN 08/15/20 08/15/20 History Inhaler] PARoxetine HCL [Paxil] 40 mg PO DAILY 08/15/20 08/15/20 History metFORMIN HCL [Glucophage] 500 mg PO BID 08/15/20 08/15/20 History predniSONE See Taper PO DIRECTED 08/15/20 08/15/20 History Allergies Allergy/AdvReac Type Severity Reaction Status Date / Time egg AdvReac Unknown Verified 08/15/20 22:44 milk AdvReac Unknown Verified 08/15/20 22:44 Surgical - Exam Vital Signs Temp Pulse Resp BP Pulse Ox 101.9 F H 143 H 24 114/70 97 08/15/20 21:39 08/15/20 21:39 08/15/20 21:39 08/15/20 21:39 08/15/20 21:39 Results - Labs 08/28/20 04:50 08/28/20 04:50 Abnormal Lab Results - Last 24 Hours (Table) 08/28/20 08/28/20 08/28/20 Range/Units 01:08 04:50 04:50 WBC 19.8 H (3.8-10.6) k/uL RBC 2.85 L (3.80-5.40) m/uL Hgb 7.6 L (11.4-16.0) gm/dL Hct 23.3 L (34.0-46.0) % RDW 17.2 H (11.5-15.5) % Plt Count 463 H (150-450) k/uL ABG Total CO2 (19-24) mmol/L ABG O2 Saturation (94-97) % Chloride 108 H (98-107) mmol/L BUN 43 H (7-17) mg/dL Creatinine 4.17 H (0.52-1.04) mg/dL Glucose 124 H (74-99) mg/dL POC Glucose (mg/dL) 145 H (75-99) mg/dL Calcium 8.3 L (8.4-10.2) mg/dL AST 137 H (14-36) U/L Alkaline Phosphatase 253 H (38-126) U/L Albumin 2.6 L (3.5-5.0) g/dL 08/28/20 08/28/20 08/28/20 Range/Units 05:50 08:03 12:38 WBC (3.8-10.6) k/uL RBC (3.80-5.40) m/uL Hgb (11.4-16.0) gm/dL Hct (34.0-46.0) % RDW (11.5-15.5) % Plt Count (150-450) k/uL ABG Total CO2 27 H (19-24) mmol/L ABG O2 Saturation 97.6 H (94-97) % Chloride (98-107) mmol/L BUN (7-17) mg/dL Creatinine (0.52-1.04) mg/dL Glucose (74-99) mg/dL POC Glucose (mg/dL) 155 H 137 H (75-99) mg/dL Calcium (8.4-10.2) mg/dL AST (14-36) U/L Alkaline Phosphatase (38-126) U/L Albumin (3.5-5.0) g/dL Microbiology - Last 24 Hours (Table) 08/26/20 09:00 Gram Stain - Final Bronchoalviolar Lavage - Left Bronchial Washings Culture - Final Diabetes panel 08/28/20 Range/Units 04:50 Sodium 141 (137-145) mmol/L Potassium 4.0 (3.5-5.1) mmol/L Chloride 108 H (98-107) mmol/L Carbon Dioxide 24 (22-30) mmol/L BUN 43 H (7-17) mg/dL Creatinine 4.17 H (0.52-1.04) mg/dL Glucose 124 H (74-99) mg/dL Calcium 8.3 L (8.4-10.2) mg/dL AST 137 H (14-36) U/L ALT 26 (4-34) U/L Alkaline Phosphatase 253 H (38-126) U/L Total Protein 7.0 (6.3-8.2) g/dL Albumin 2.6 L (3.5-5.0) g/dL Calcium panel 08/28/20 Range/Units 04:50 Calcium 8.3 L (8.4-10.2) mg/dL Albumin 2.6 L (3.5-5.0) g/dL Pituitary panel 08/28/20 Range/Units 04:50 Sodium 141 (137-145) mmol/L Potassium 4.0 (3.5-5.1) mmol/L Chloride 108 H (98-107) mmol/L Carbon Dioxide 24 (22-30) mmol/L BUN 43 H (7-17) mg/dL Creatinine 4.17 H (0.52-1.04) mg/dL Glucose 124 H (74-99) mg/dL Calcium 8.3 L (8.4-10.2) mg/dL Adrenal panel 08/28/20 Range/Units 04:50 Sodium 141 (137-145) mmol/L Potassium 4.0 (3.5-5.1) mmol/L Chloride 108 H (98-107) mmol/L Carbon Dioxide 24 (22-30) mmol/L BUN 43 H (7-17) mg/dL Creatinine 4.17 H (0.52-1.04) mg/dL Glucose 124 H (74-99) mg/dL Calcium 8.3 L (8.4-10.2) mg/dL Total Bilirubin 0.8 (0.2-1.3) mg/dL AST 137 H (14-36) U/L ALT 26 (4-34) U/L Alkaline Phosphatase 253 H (38-126) U/L Total Protein 7.0 (6.3-8.2) g/dL Albumin 2.6 L (3.5-5.0) g/dL
[2020-08-28] MEDS ORDERED: DARBEPOETIN ALFA 40 MCG/0.4 ML SYRINGE SQ SCH (16:00)
[2020-08-28 18:20] LABS: Glucose,Whole Blood 133 mg/dL (75-99)
[2020-08-28] MEDS: ATORVASTATIN 80 MG TAB PO SCH (20:29)
--- NOTE | 2020-08-28 22:39 | PN ---
PROGRESS NOTE DATE OF SERVICE: 08/28/2020 REASON FOR FOLLOWUP: Pneumonia and oropharyngeal candidiasis. INTERVAL HISTORY: The patient is currently afebrile. The patient is hemodynamically stable, not on any pressor support. FiO2 is currently stable at 50%. Tolerating her tube feeds. No diarrhea or any other changes reported by the nursing staff. PHYSICAL EXAMINATION: Blood pressure 138/56, pulse of 103, temperature 99.6. She is 94% on 50% FiO2. General description is a middle-aged female lying in bed in no distress. RESPIRATORY SYSTEM: Unlabored breathing with decreased breath sounds at the base. No wheeze. HEART: S1, S2. Regular rate and rhythm. ABDOMEN: Soft. LABS: Hemoglobin 7.3, white count 19.8. BUN of 43, creatinine 4.17. DIAGNOSTIC IMPRESSION AND PLAN: 1. Patient with acute respiratory failure which is multifactorial in this patient with a component of pneumonia. Sputum has been Strep pneumo, possible aspiration, covered with Unasyn. 2. Patient with elevated white count with possible concern about oropharyngeal candidiasis. Initial improvement in white count with Eraxis, though still elevated. Will be monitored closely. If she spikes a fever or if there are any other changes, re-culture and adjust antibiotic further. MMODL / IJN: [id number] /
[2020-08-28 23:26] LABS: Glucose,Whole Blood 138 mg/dL (75-99)
[2020-08-28 23:47] LABS: Glucose,Whole Blood 138 mg/dL (75-99)
[2020-08-29] MEDS: INSULIN ASPART (NovoLOG) 100 UNIT/ML VIAL SQ SCH ×4 (00:05→17:43)
[2020-08-29] MEDS: ACETAMINOPHEN IV (For NPO) 1,000 MG in EMPTY BAG 1 BAG IVPB PRN ×2 (00:05→15:41)
[2020-08-29] MEDS: HYDROmorphone 1 MG/ML 1 ML SYRINGE IVP PRN ×3 (00:17→07:20)
[2020-08-29] MEDS: IPRATROPIUM-ALBUTEROL 3 ML NEB INHALATION SCH ×7 (00:21→20:30)
[2020-08-29] MEDS ORDERED: AMPICILLIN-SULBACTAM 3 GM in SODIUM CHLORIDE 0.9% 100 ML IVPB SCH (01:00)
[2020-08-29 04:33] LABS: Anisocytosis Slight; Basophils # (A) 0.1 k/uL (0-0.2); Basophils % (A) 0 %; Eosinophils # (A) 0.2 k/uL (0-0.7); Eosinophils % (A) 1 %; Hypochromasia Slight; Lymphocytes # (A) 1.9 k/uL (1.0-4.8); Lymphocytes % (A) 12 %; MCH 25.3 pg (25.0-35.0); MCHC 30.6 g/dL (31.0-37.0); MCV 82.9 fL (80.0-100.0); Mean Platelet Volume 8.9; Monocytes # (A) 1.1 k/uL (0-1.0); Monocytes % (A) 7 %; Neutrophils # (A) 12.6 k/uL (1.3-7.7); Neutrophils % (A) 77 %; Platelet Count 445 k/uL (150-450); RBC 2.35 m/uL (3.80-5.40); WBC 16.4 k/uL (3.8-10.6)
[2020-08-29 04:44] LABS: HCT 19.5 % (34.0-46.0)
[2020-08-29 05:03] LABS: Calcium 7.9 mg/dL (8.4-10.2)
[2020-08-29 05:17] LABS: ABG Base Excess 1.6 mmol/L; ABG HCO3 26 mmol/L (21-25); ABG Oxygen Saturation 96.4 % (94-97); ABG PCO2 40 mmHg (35-45); ABG PH 7.43 (7.35-7.45); ABG PO2 75 mmHg (83-108); ABG TCO2 27 mmol/L (19-24); Allen Test Performed? Yes
[2020-08-29 05:28] LABS: Glucose,Whole Blood 130 mg/dL (75-99)
[2020-08-29 05:30] LABS: Partial Thromboplastin Time 22.9 sec (22.0-30.0)
[2020-08-29] MEDS: METOPROLOL TARTRATE 25 MG TAB PO SCH ×2 (05:30→20:12)
[2020-08-29] MEDS: LEVOTHYROXINE 100 MCG TAB PO SCH (05:36)
[2020-08-29] MEDS: CALCIUM ACETATE 667 MG TAB PO SCH ×3 (05:36→17:40)
--- NOTE | 2020-08-29 07:20 | XR ---
EXAMINATION TYPE: XR chest 1V portable DATE OF EXAM: 08/29/2020 COMPARISON: 08/28/2020 HISTORY: SOB, Follow Up FINDINGS: Indwelling tubes and catheters are unchanged. Again noted is complete opacification left hemithorax unchanged from prior study. Stable appearance of the cardio-mediastinal structures at this time. Pleural effusion unchanged. IMPRESSION: 1. Stable portable chest. Clinical correlation and follow up until resolution is recommended.
[2020-08-29] MEDS: BUDESONIDE 1 MG/2 ML NEBU INHALATION SCH ×2 (07:32→20:29)
[2020-08-29] MEDS: FORMOTEROL FUMARATE 20 MCG/2 ML NEBU INHALATION SCH ×2 (07:32→20:29)
[2020-08-29] MEDS: CHLORHEXIDINE GLUCONATE 15 ML CUP MUCOUS MEM SCH ×2 (09:15→20:12)
[2020-08-29] MEDS: AMIODARONE 200 MG TAB PO SCH ×2 (09:15→20:11)
[2020-08-29] MEDS: ERGOCALCIFEROL 50,000 UNIT CAP PO SCH (09:15)
[2020-08-29] MEDS: SODIUM BICARBONATE TAB 650 MG TAB PO SCH (09:16)
[2020-08-29] MEDS: PANTOPRAZOLE 40 MG/10 ML VIAL IVP SCH (09:16)
[2020-08-29] MEDS: PARoxetine 20 MG TAB PO SCH (09:16)
[2020-08-29] MEDS: ASPIRIN 81 MG PO SCH (09:44)
[2020-08-29] MEDS: DEXMEDETOMIDINE/0.9% NACL(PMX) 400 MCG in EMPTY BAG 1 BAG IV SCH ×3 (10:04→18:44)
[2020-08-29] MEDS: ANIDULAFUNGIN 100 MG in SODIUM CHLORIDE 0.9% 100 ML IVPB SCH (10:58)
--- NOTE | 2020-08-29 11:12 | P.PN ---
Subjective Patient is seen in follow-up for acute kidney injury. She is currently hemodialysis dependent. She is intubated, on 40% FiO2. Not on vasopressors. Receiving tube feeding. Oliguric. Patient became hypotensive this morning after receiving Dilaudid. She is also noted to have rectal bleeding and hemoglobin was 6.0 this morning. She is scheduled to receive 2 units of blood. GI has also been consulted. Vital signs are stable. General: The patient appeared well nourished and normally developed. HEENT: Head exam is unremarkable. Intubated. LUNGS: Breath sounds decreased. HEART: Rate and Rhythm are regular. ABDOMEN: Soft, obese. EXTREMITITES: 2+ edema. Objective - Vital Signs Vital signs: Vital Signs Temp 99.7 F H 08/29/20 10:50 Pulse 96 08/29/20 10:50 Resp 26 H 08/29/20 10:50 BP 133/72 08/29/20 10:50 Pulse Ox 98 08/29/20 10:50 Intake & Output 08/28/20 08/29/20 08/29/20 18:59 06:59 18:59 Intake Total 655 437 13 Output Total 2415 20 0 Balance -1760 417 13 Weight 157.1 kg 154.7 kg Intake: IV 169 143 13 0.9 130 110 10 Pressure Bag 39 33 3 Intake, IV Titration 100 Amount Anidulafungin 100 mg In 100 Sodium Chloride 0.9% 100 ml @ 84 mls/hr IVPB DAILY [facility] Rx#:[id number] Tube Feeding 386 264 Blood Product 0 Rc As-1 Unit 0 [id number] Other 30 Output: Urine 15 20 0 Hemodialysis 2400 Other: Voiding Method Indwelling Catheter Indwelling Catheter # Bowel Movements 1 1 ABP, PAP, CO, CI - Last Documented Arterial Blood Pressure 140/65 - Labs CBC & Chem 7: 08/29/20 04:15 08/29/20 04:15 Labs: Abnormal Lab Results - Last 24 Hours (Table) 08/28/20 08/28/20 08/28/20 Range/Units 12:38 18:11 23:24 WBC (3.8-10.6) k/uL RBC (3.80-5.40) m/uL Hgb (11.4-16.0) gm/dL Hct (34.0-46.0) % MCHC (31.0-37.0) g/dL RDW (11.5-15.5) % Neutrophils # (1.3-7.7) k/uL Monocytes # (0-1.0) k/uL ABG pO2 (83-108) mmHg ABG HCO3 (21-25) mmol/L ABG Total CO2 (19-24) mmol/L Chloride (98-107) mmol/L BUN (7-17) mg/dL Creatinine (0.52-1.04) mg/dL Glucose (74-99) mg/dL POC Glucose (mg/dL) 137 H 133 H 138 H (75-99) mg/dL Calcium (8.4-10.2) mg/dL Stool Occult Blood (Negative) Crossmatch 08/28/20 08/29/20 08/29/20 Range/Units 23:46 04:15 04:15 WBC 16.4 H (3.8-10.6) k/uL RBC 2.35 L (3.80-5.40) m/uL Hgb 6.0 L* D (11.4-16.0) gm/dL Hct 19.5 L* (34.0-46.0) % MCHC 30.6 L (31.0-37.0) g/dL RDW 18.0 H (11.5-15.5) % Neutrophils # 12.6 H (1.3-7.7) k/uL Monocytes # 1.1 H (0-1.0) k/uL ABG pO2 (83-108) mmHg ABG HCO3 (21-25) mmol/L ABG Total CO2 (19-24) mmol/L Chloride 109 H (98-107) mmol/L BUN 52 H (7-17) mg/dL Creatinine 3.97 H (0.52-1.04) mg/dL Glucose 120 H (74-99) mg/dL POC Glucose (mg/dL) 138 H (75-99) mg/dL Calcium 7.9 L (8.4-10.2) mg/dL Stool Occult Blood (Negative) Crossmatch 08/29/20 08/29/20 08/29/20 Range/Units 04:47 05:00 05:12 WBC (3.8-10.6) k/uL RBC (3.80-5.40) m/uL Hgb (11.4-16.0) gm/dL Hct (34.0-46.0) % MCHC (31.0-37.0) g/dL RDW (11.5-15.5) % Neutrophils # (1.3-7.7) k/uL Monocytes # (0-1.0) k/uL ABG pO2 75 L (83-108) mmHg ABG HCO3 26 H (21-25) mmol/L ABG Total CO2 27 H (19-24) mmol/L Chloride (98-107) mmol/L BUN (7-17) mg/dL Creatinine (0.52-1.04) mg/dL Glucose (74-99) mg/dL POC Glucose (mg/dL) (75-99) mg/dL Calcium (8.4-10.2) mg/dL Stool Occult Blood Positive H (Negative) Crossmatch See Detail 08/29/20 Range/Units 05:13 WBC (3.8-10.6) k/uL RBC (3.80-5.40) m/uL Hgb (11.4-16.0) gm/dL Hct (34.0-46.0) % MCHC (31.0-37.0) g/dL RDW (11.5-15.5) % Neutrophils # (1.3-7.7) k/uL Monocytes # (0-1.0) k/uL ABG pO2 (83-108) mmHg ABG HCO3 (21-25) mmol/L ABG Total CO2 (19-24) mmol/L Chloride (98-107) mmol/L BUN (7-17) mg/dL Creatinine (0.52-1.04) mg/dL Glucose (74-99) mg/dL POC Glucose (mg/dL) 130 H (75-99) mg/dL Calcium (8.4-10.2) mg/dL Stool Occult Blood (Negative) Crossmatch Microbiology - Last 24 Hours (Table) 08/26/20 09:00 Gram Stain - Final Bronchoalviolar Lavage - Left Bronchial Washings Culture - Final Assessment and Plan Plan: Assessment: 1. Acute kidney injury, currently hemodialysis dependent. Etiology is ATN secondary to septic shock. Urine output 0-5 mL an hour. Baseline creatinine near 1. 2. Septic shock secondary to pneumonia. Status post bronchoscopy on August 26 with removal of mucous plug. Scheduled for another bronchoscopy today. Maintained on antibiotics. Off vasopressors. 3. Volume overload. Improving with ultrafiltration. 4. Metabolic acidosis secondary to acute kidney injury. Maintained on oral bicarb. Resolved. 5. Hypervolemic hyponatremia. Improved with ultrafiltration. 6. Hyperphosphatemia secondary to acute kidney injury Maintained on PhosLo. 7. Anemia secondary to acute GI bleed. Component of underlying renal disease. Maintained on Aranesp. Receiving 2 units of blood today. Plan: Hold hemodialysis today due to acute bleed and bronchoscopy. Will resume tomor row. Discussed with secretarial stenographer. No response to IV Lasix given August 26. Wean FiO2. I will give her dose of IV DDAVP today. Continue to monitor renal function and urine output. Patient's dialysis catheter was placed August 20. Vascular surgery has been reconsulted for permacath placement - placement was held this morning due to acute bleeding. Scheduled for tracheostomy and PEG tube in the near future. DC oral bicarb.
[2020-08-29] MEDS ORDERED: DESMOPRESSIN ACETATE 18 MCG in SODIUM CHLORIDE 0.9% 50 ML IVPB ONE (11:15)
[2020-08-29 11:44] LABS: Glucose,Whole Blood 128 mg/dL (75-99)
--- NOTE | 2020-08-29 13:58 | CONS ---
CONSULTATION DATE OF DICTATION: August 29, 2020. REQUESTING PHYSICIAN: Dr. Hardy. REASON FOR CONSULTATION: Acute GI bleed. HISTORY OF PRESENT ILLNESS: The patient is a 55-year-old white female with history of asthma, morbid obesity, hypothyroidism, admitted to the hospital 11 days ago with acute respiratory failure and presently intubated, sedated on the vent. During the course of hospitalization, she developed acute kidney injury and was started on hemodialysis a week ago. The patient has been on Eliquis for atrial fibrillation which has been on hold since yesterday as she was scheduled for a PermCath placement today. However, yesterday afternoon she had an episode of black tarry stools. Subsequently, she had 2 more episodes of black tarry stools. An FMS was placed early this morning and there was about 500 mL of black tarry stool in FMS bag currently. She dropped hemoglobin from 7.8-6.8 and currently receiving blood transfusion. PermCath has been postponed as of now because of active GI bleed. She has an NG tube in place for tube feeds that have been hold from since last night. Has not been connected to suction so far. No prior history of acute GI bleed. PAST MEDICAL HISTORY: Significant for asthma, sleep apnea, hypothyroidism, morbid obesity. MEDICATIONS: Medications at home include: Flonase, Advair, Ventolin, Synthroid, Paxil, Glucophage, prednisone. ALLERGIES: EGGS AND MILK. PAST SURGICAL HISTORY: Hysterectomy, bladder surgery. REVIEW OF SYSTEMS: Could not be obtained as patient is presently on the vent, sedated. FAMILY HISTORY: Mother has diabetes mellitus, coronary artery disease. PHYSICAL EXAMINATION: Patient remains on the vent, sedated, on mechanical ventilation. Vital signs show blood pressure 130/72, pulse rate 96. Temperature 99.7, T-max yesterday was 100.3. Physical examination as per the attending physician. LABS: From today WBC 16.4, hemoglobin is down to 6. Yesterday it was 7.6, platelets are 445. BUN and creatinine 52 and 3.97 respectively. T-Bilirubin 1. AST, ALT are 137 and 26 respectively, alkaline phosphatase 253, Lobo virus PCR was negative at the time of admission to the hospital. IMPRESSION: 1. Acute gastrointestinal bleed. Patient with black tarry stools that started yesterday afternoon, continues to have multiple episodes of black tarry stools and this morning has an FMS placed and approximately 500 mL of black tarry stools in the bag. She dropped hemoglobin from 7.6-6, requiring 2 units of blood transfusion. Has an NG tube in place with tube feeds which has been on hold since last night. She has been on Eliquis for atrial fibrillation which is also on hold since yesterday morning. Last hemoglobin is 6. Currently receiving blood transfusion. Most likely dealing with an upper gastrointestinal source of bleeding. 2. Acute respiratory failure, who is presently on the vent, sedated and Lobo virus PCR was negative. She is being treated with broad-spectrum antibiotics for possible aspiration pneumonia/other etiologies. 3. Acute kidney injury presently on dialysis for the last one week duration. 4. History of asthma. 5. Morbid obesity. 6. Diabetes mellitus. RECOMMENDATIONS: 1. Continue to hold Eliquis. 2. Continue Protonix 40 mg twice daily. 3. Monitor CBC every 6 hours and transfuse if the hemoglobin is less than 7. 4. We will proceed with an upper endoscopy tomorrow at the bedside. 5. Keep NG tube to low continuous suction and lavage with 250 mL of normal saline to see if we are dealing with active upper GI bleed. 6. We will follow with you closely. Thank you for this consultation. MMODL / IJN: [id number] /
[2020-08-29] MEDS ORDERED: SODIUM CHLORIDE 0.9% 1,000 ML IV ONE ×2 (14:14→16:10)
[2020-08-29] MEDS ORDERED: NOREPINEPHRIN 4 MG-0.9% NS PMX 4 MG/250 ML ML IV ONE (14:40)
--- NOTE | 2020-08-29 14:49 | P.PN ---
Subjective Progress Note Date: 08/29/20 This is a 55-year-old female patient was hospitalized on 08/16/2020 with an acute left lower lobe pneumonia sepsis. Note that the patient has undergone a bronchoscopy on 08/17/2024 mucous plugs. The sepsis and the left lower lobe pneumonia was felt to be related to Streptococcus pneumonia. The Streptococcus pneumoniae was cultured in the sputum sample. Blood cultures of been negative. The patient was intubated, extubated on the same daily intubated has is that she has been on a mechanical ventilator. At this point in time, the patient is on a assist-control mode of using the VAC plus mode. The patient is respiratory rate of 350 tidal volume of 350 FiO2 of 50 and PEEP of 8. The i nspiratory time is at 0.9 seconds. The blood gases from today shows a pH of 7.27 with a pCO2 of 38 and pO2 93. The chest x-ray from today showing pulmonary edema along with cardiomegaly. There is increased interstitial infiltrates bilaterally in addition to her left lower lobe consolidation/airspace disease. ET tube remains in a good location. The patient is sedated with propofol which is running at 30 mics micrograms per kilogram per minute. The patient during the course of her treatment, developed an acute kidney injury, currently she is on hemodialysis last dialysis being on 08/22/2020 with a total of 3.5 L of fluid was ultrafiltrated. The patient is on growth spectrum antibiotics including a combination of IV Unasyn and the patient is also on IV Eraxis. In terms of hemodynamics, the patient is still pressor dependent. The neck fluid balance has been negative as the patient has been undergoing dialysis with ultrafiltration. The chest x-ray showing a left lower lobe consolidation With adequate positioning of the ET tube. The patient has an orogastric tube for enteral feeding and nutritional support and the patient also has a PICC line in the left upper extremity. The echo of the heart showed a moderate concentric LVH with an ejection fraction of 30-35%. There was mild aortic sclerosis and severe pulmonary hypertension with a PA pressure of 66 mmHg. The patient has been having also approximately atrial fibrillation. She is currently on oral amiodarone. She is also on metoprolol for rate control. She was on IV heparin was discontinued due to nosebleed subsequently the patient was started on oral anticoagulation with Eliquis. The patient's other comorbidities include obstructive sleep apnea and the patient has not been completely compliant to CPAP therapy, she has been morbidly obese, hypothyroid and history of bronchial asthma. The plan for today still undergo another session of hemodialysis with ultrafiltration. The white cell count remains elevated yet is down from yesterday is down to 29.2. On 08/25/2020 the patient is being seen for a follow-up. The patient remains on a mechanical ventilator. On today's evaluation, the patient is an assist- control mode at a rate of 26 with a tidal volume of 450 and FiO2 of 50% with a PEEP of 8. Blood gases from today showed a pH of 7.34 with a pCO2 of 36 and pO2 of 104 and this was on FiO2 of 50%. The patient is on propofol for sedation running at 55 mg per KG per minute. The patient is on normal saline at the rate of 20 mL an hour and the patient is also on vital high protein at the rate of 36 mL for enteral feeding and nutritional support. The patient underwent hemodialysis yesterday without a total of 3 L of fluid was removed. Urine output is low in the order of 15-20 mL. The chest x-ray still showing diffuse bilateral pulmonary infiltrates and CHF along with cardiomegaly anterolaterally unchanged compared to yesterday. The patient is afebrile. White cell count is down to 22. Hemoglobin stable at 8.9. Rest of the blood work shows a BUN of 45, creatinine 3.2, and the patient is a mild anion gap metabolic acidosis with a serum bicarb of 18. The triglyceride level came back at 1492. The patient's cardiac rhythm is sinus. The patient remains on antibiotic ventilation with Eliquis. On 08/26/2020, the patient is being seen for a follow-up. This morning, the patient is on Precedex. I'm glad to report to the patient's been off Diprivan and we will gradually going to wean off the Precedex and assess the patient's mental status. Precedex is running at 0.5 mg per KG per minute. The patient remains on a mechanical ventilator on assist control mode at the rate of 26 and a tidal volume of 450 and FiO2 of 50% with a PEEP of 6. PH is at 7.4 with a pCO2 of 37 and pO2 of 64. Chest x-ray shows volume loss and complete investigation of the left lung most likely secondary to a mucous plug as the patient has a cutoff sign in the distal left mainstem bronchus. Based on that, a bedside bronchoscopy was done and copious amounts of mucous plugs were aspirated from the left mainstem bronchus. There cultures were sent from the bronchioloalveolar lavage was obtained from the left lower lobe. Meanwhile, the patient remains on IV Unasyn. The patient is afebrile. The patient's hemoglobin is stable. The patient undergoing daily hemodialysis ultrafiltration and another session is planned for today. Note that following the bronchoscopy, [employer] chest x-ray was done and the patient did not show adequate expansion of the left lung. Based on that, increase the PEEP to 12 and a repeat chest x-rays to follow. The patient is tolerating enteral feeding for nutritional support with vital HP of 36 mL an hour. A repeat chest x-ray that was done later on in the afternoon showed reexpansion of the left lung although there is some ongoing basilar atelectasis on the basis On 08/27/2020, the patient demonstrates adequate expansion of the left lung although expect has not completed the patient continues to have some atelectatic changes and left lung base. I have her on a mechanical ventilator. I have on a PEEP of 12. Tidal volumes of 450 with a rate of 20 and an FiO2 of 50%. The blood gases from today showed adequate oxygenation with a pH of 7.38 with a pCO2 of 42 and pO2 of 154. The chest x-ray is showing interstitial infiltrates secondary to fluid overload/CHF. The left base is still atelectatic and there are probably some small bilateral pleural effusions. Nevertheless, the atelectasis that was related to the mucous plug has recovered. The patient is currently on Precedex which will be taken off her mental status will be assessed. She is afebrile. She will be undergoing another session of hemodialysis with ultrafiltration. Her volume status has improved considerably as the patient is receiving daily dialysis with ultrafiltration. She remains on enteral nutrition with vital high protein. My plan is to discontinue the sedation completely. Assess her mental status. Assessment weaning parameters. Her white cell count of 19.6 with a hemoglobin of 7.6. The rest of the carotids showed BUN of 32 with a creatinine of 3.57. Sodium is at 140 with a serum bicarb of 23. The patient remains on IV Unasyn. The patient also remains on E raxis per IDs recommendations. 08/28/2020, the patient continues to have issues most significant of which is the recurrent collapse of the left lung as the patient's chest x-ray from today shows complete opacification of the left lung. Based on that, an emergent bronchoscopy was done at the bedside and the patient continued to have significant amount of mucous plugs that was evacuated from the left lung. Patency of the airway was achieved. The second problem isn't altered mentation as the patient is not recovering well off the sedation and the patient has been off the sedation for the past 24 hours. On today's evaluation, she does some minimal amount of grimacing upon painful stimulation. Nevertheless, the patient is not following any significant commands. She is not opening her eyes spontaneously. No purposeful movement has been documented by the nursing staff. The patient remains on a mechanical ventilator. The patient currently is on a assist-control mode rate of 20 with a tidal volume of 450 and FiO2 50% with a PEEP of 5. She is on lovastatin rate of 20 mL an hour. Cardiac rhythm is sinus. There are diminished breath on the left. The third spacing and the edema is improved considerably as the patient underwent daily hemodialysis. No fever. Remains on IV Unasyn. No other significant events over the past 24 hours for now. The patient is still receiving enteral feeding for nutritional support. She is tolerating a diet without any major difficulties. 08/29/2020, the patient is having several issues. First of all, while on the mechanical ventilator, the left lung is again collapse. Despite the bronchoscopy was done yesterday, the left lung is still showing volume loss and a cutoff sign at the level of the left mainstem bronchus consistent with a mu cous plug. Nevertheless, this has not affected the patient's oxygenation. The patient is currently on assist control mode at the rate of 20 with a tidal volume of 450 and FiO2 of 40% with a PEEP of 5. The blood gas showed a pH of 7.43 with a pCO2 of 40 and pO2 of 75. Nevertheless, the patient has not shown adequate recovery in terms of her mentation. She is been off sedation for the past 48 hours. During the day, started becoming progressively more restless and agitated and asynchronous with a mechanical ventilator. She had to be restarted back on a low-dose Precedex. At the same time, the patient developed an upper GI bleed. She developed melanotic stool and she dropped her hemoglobin down to 6.0 this morning. White cell count at 16.4. Platelet count is at 445. Coagulation profile is within normal limits. No hematemesis. She'll feeds were discontinued. Note that the patient was also offered Eliquis 9 and the patient was seeking a insertion of a permanent hemodialysis catheter and the patient has not taken Eliquis since 08/27/2020. As such, no antidote reversal of Eliquis was given. The patient will be seen by gastroenterology. I performed a bedside bronchoscopy. Morbid is plugs were aspirated from the left lung. The patient is to receive a total of 2 units of packed RBCs. Her IV fluids need to be increased and the patient is to be given a bolus of IV fluid with normal saline. Aspirin we'll replaced on hold. Objective - Vital Signs Vital signs: Vital Signs Temp 99.8 F H 08/29/20 12:12 Pulse 95 08/29/20 12:12 Resp 25 H 08/29/20 12:12 BP 121/70 08/29/20 12:12 Pulse Ox 97 08/29/20 12:12 Intake & Output 08/28/20 08/29/20 08/29/20 18:59 06:59 18:59 Intake Total 655 437 465 Output Total 2415 20 10 Balance -1760 417 455 Weight 157.1 kg 154.7 kg Intake: IV 169 143 65 0.9 130 110 50 Pressure Bag 39 33 15 Intake, IV Titration 100 Amount Anidulafungin 100 mg In 100 Sodium Chloride 0.9% 100 ml @ 84 mls/hr IVPB DAILY [facility] Rx#:[id number] Oral 90 Tube Feeding 386 264 Blood Product 310 Rc As-1 Unit 310 [id number] Other 30 Output: Urine 15 20 10 Hemodialysis 2400 Other: Voiding Method Indwelling Catheter Indwelling Catheter Indwelling Catheter # Bowel Movements 1 1 ABP, PAP, CO, CI - Last Documented Arterial Blood Pressure 144/72 - Exam Gen. appearance the patient is intubated, comfortable mechanical ventilator status the mechanical ventilator on assist control mode and orogastric and orotracheal tube are both in place. Patient is morbidly obese. The patient is currently back on sedation the patient is on a low dose of Precedex. Head exam was generally normal. There was no scleral icterus or corneal arcus. Mucous membranes were moist. Neck was supple and without jugular venous distension, thyromegaly, or carotid bruits. Carotids were easily palpable bilaterally. There was no adenopathy. My normal lungs breath sounds are quite diminished in the left lung base compared to the right. Cardiac exam revealed the PMI to be normally situated and sized. The rhythm was regular and no extrasystoles were noted during several minutes of auscultation. The first and second heart sounds were normal and physiologic splitting of the second heart sound was noted. There were no murmurs, rubs, clicks, or gallops. Abdominal exam revealed normal bowel sounds. The abdomen was soft, non-tender, and without masses, organomegaly, or appreciable enlargement of the abdominal aorta. Extremities revealed trace edema and there is clubbing and the patient has a PICC line in left upper extremity. The patient has edema in all 4 extremities and the patient has a Artline catheter in the right radial artery Neurologically the patient is sedated. The patient is calm and comfortable cigarettes with the mechanical ventilator. - Labs CBC & Chem 7: 08/29/20 04:15 08/29/20 04:15 Labs: Abnormal Lab Results - Last 24 Hours (Table) 08/28/20 08/28/20 08/28/20 Range/Units 18:11 23:24 23:46 WBC (3.8-10.6) k/uL RBC (3.80-5.40) m/uL Hgb (11.4-16.0) gm/dL Hct (34.0-46.0) % MCHC (31.0-37.0) g/dL RDW (11.5-15.5) % Neutrophils # (1.3-7.7) k/uL Monocytes # (0-1.0) k/uL ABG pO2 (83-108) mmHg ABG HCO3 (21-25) mmol/L ABG Total CO2 (19-24) mmol/L Chloride (98-107) mmol/L BUN (7-17) mg/dL Creatinine (0.52-1.04) mg/dL Glucose (74-99) mg/dL POC Glucose (mg/dL) 133 H 138 H 138 H (75-99) mg/dL Calcium (8.4-10.2) mg/dL Stool Occult Blood (Negative) C. difficile (EIA) Intrp (Negative) Crossmatch 08/29/20 08/29/20 08/29/20 Range/Units 04:15 04:15 04:35 WBC 16.4 H (3.8-10.6) k/uL RBC 2.35 L (3.80-5.40) m/uL Hgb 6.0 L* D (11.4-16.0) gm/dL Hct 19.5 L* (34.0-46.0) % MCHC 30.6 L (31.0-37.0) g/dL RDW 18.0 H (11.5-15.5) % Neutrophils # 12.6 H (1.3-7.7) k/uL Monocytes # 1.1 H (0-1.0) k/uL ABG pO2 (83-108) mmHg ABG HCO3 (21-25) mmol/L ABG Total CO2 (19-24) mmol/L Chloride 109 H (98-107) mmol/L BUN 52 H (7-17) mg/dL Creatinine 3.97 H (0.52-1.04) mg/dL Glucose 120 H (74-99) mg/dL POC Glucose (mg/dL) (75-99) mg/dL Calcium 7.9 L (8.4-10.2) mg/dL Stool Occult Blood (Negative) C. difficile (EIA) Intrp Positive A (Negative) Crossmatch 08/29/20 08/29/20 08/29/20 Range/Units 04:47 05:00 05:12 WBC (3.8-10.6) k/uL RBC (3.80-5.40) m/uL Hgb (11.4-16.0) gm/dL Hct (34.0-46.0) % MCHC (31.0-37.0) g/dL RDW (11.5-15.5) % Neutrophils # (1.3-7.7) k/uL Monocytes # (0-1.0) k/uL ABG pO2 75 L (83-108) mmHg ABG HCO3 26 H (21-25) mmol/L ABG Total CO2 27 H (19-24) mmol/L Chloride (98-107) mmol/L BUN (7-17) mg/dL Creatinine (0.52-1.04) mg/dL Glucose (74-99) mg/dL POC Glucose (mg/dL) (75-99) mg/dL Calcium (8.4-10.2) mg/dL Stool Occult Blood Positive H (Negative) C. difficile (EIA) Intrp (Negative) Crossmatch See Detail 08/29/20 08/29/20 Range/Units 05:13 11:42 WBC (3.8-10.6) k/uL RBC (3.80-5.40) m/uL Hgb (11.4-16.0) gm/dL Hct (34.0-46.0) % MCHC (31.0-37.0) g/dL RDW (11.5-15.5) % Neutrophils # (1.3-7.7) k/uL Monocytes # (0-1.0) k/uL ABG pO2 (83-108) mmHg ABG HCO3 (21-25) mmol/L ABG Total CO2 (19-24) mmol/L Chloride (98-107) mmol/L BUN (7-17) mg/dL Creatinine (0.52-1.04) mg/dL Glucose (74-99) mg/dL POC Glucose (mg/dL) 130 H 128 H (75-99) mg/dL Calcium (8.4-10.2) mg/dL Stool Occult Blood (Negative) C. difficile (EIA) Intrp (Negative) Crossmatch Assessment and Plan Plan: 1 acute hypoxic respiratory failure secondary to left lower lobe pneumonia/sepsis. The patient continues to have recurrent mucous plugs obstructing the left lung with secondary left lung atelectasis. The patient underwent a bronchoscopy 2 and despite that the patient is developing recurrent mucous plugs of the left mainstem bronchus and a bronchoscopy was done today with further exacerbation of mucous plugs from the left mainstem bronchus. As such, the patient has undergone a total of 3 bronchoscopies. A repeat chest x- ray will be obtained tomorrow. Meanwhile, the patient will be kept on mechanical ventilator with the same ventilator settings. The patient is oxygenating well on warm cycle mode of ventilation. 2 septic shock secondary to the left lower lobe pneumonia secondary to pneumococcus/strep pneumonia, currently on no pressors and the patient is completing a course of IV Unasyn 3 acute kidney injury currently hemodialysis dependent. the patient developed an acute kidney injury secondary to pneumonia/sepsis. The patient is requiring daily hemodialysis. There is significant improvement in the volume status and the third spacing as the patient underwent daily hemodialysis. Last hemodialysis was yesterday. The patient was supposed to have a permacath insertion today. However, based on the ongoing issues and comorbidities and ongoing upper GI bleed, the patient will not have this procedure done today. We'll consider temporary Vas-Cath in place. 4 upper GI bleed with a drop in hemoglobin down to 6.0. 5 history of bronchial asthma 6 history obstructive sleep apnea noncompliant to CPAP therapy, would possibly the pickwickian syndrome 7 diabetes mellitus type 2, currently on a sliding scale coverage 8 hypothyroidism 9 CHF with impaired ejection fraction of 30-35%. This is considered to be a systolic heart failure, could be sepsis induced and the patient has a component of severe pulmonary hypertension. 10 persistent leukocytosis most likely improved compared to yesterday 11 non-anion gap metabolic acidosis, recovered 12 paroxysmal atrial fibrillation current rhythm is sinus 13 hypertriglyceridemia secondary to propofol infusion. Note that the patient has been off sedation for the past 24 hours. Propofol was discontinued. Precedex is currently running at a lower dose. 14 encephalopathy, most likely drug induced. 15 morbid obesity 16 acute blood loss anemia with drop in hemoglobin down to 6, secondary to GI bleed Plan Continue ventilator support, Repeat bronchoscopy was done and further mucous plugs were taken off from the left mainstem bronchus. As such the patient a total of 3 bronchoscopies. Since he was a total of 2 units of packed RBC No need for Kcentra unless the bleeding continues Restart Precedex if the low dose Continue antibiotic coverage Continue hemodialysis per nephrology Consult gastroenterology Keep aspirin on hold Hold the tube feeds General surgery has been consulted for PEG tube and a tracheostomy tube insertion Condition is critical we'll continue to follow make further recommendations based on her progress. Critically care management was done more than 30 minutes. Time with Patient: Greater than 30
--- NOTE | 2020-08-29 14:54 | P.PN ---
Subjective Progress Note Date: 08/29/20 CHIEF COMPLAINT: Vent dependent respiratory failure HISTORY OF PRESENT ILLNESS: The patient is a 55-year-old female with ESRD, chronic diarrhea, abnormal chest xray for COVID-19 who is in the ICU with full mechanical ventilatory support. She was on Eliquis with decrease in hemoglobin. She is pending permacath placement per discussion with nurse. ROS: Has moderate diarrhea with fecal bag system. PHYSICAL EXAM: VITAL SIGNS: Reviewed CONSTITUTIONAL: Well developed and in no acute distress. EYES: Conjuctivae without sclera icterus. HEAD, EARS, NOSE, THROAT: Moist buccal mucosa. Head is atraumatic, normocephalic. NECK: No thyroidomegaly. RESPIRATORY: Non-labored respirations and equal bilateral excursions. Full mechanical support. CARDIOVASCULAR: Palpable 2+ radial pulses. ABDOMEN: No peritonitis. Fecal stool system dark. MUSCULOSKELETAL: No gross deformity of the lower extremities noted. No clubbing. No cyanosis. SKIN: Good skin turgor. Well perfused. NEUROLOGIC: No spontaneous movements : Peterson clear yellow urine PSYCH: Non purposeful movement. CLINICAL LABS: White blood cell count elevated over 16,000. Hgb down 7.6 to 6.0. ASSESSMENT: 1. Sepsis 2. CDiff colitis. 3. Super morbid obesity 4. Vent dependent respiratory failure PLAN: 1. Blood thinner Eliquis although discontinued 1-2 days ago may contribute to bleeding 2. Transfuse as needed for acute blood loss anemia 3. Scope pending per GI 4. Trach and PEG per protocol Objective - Vital Signs Vital signs: Vital Signs Temp 99.8 F H 08/29/20 12:12 Pulse 95 08/29/20 12:12 Resp 25 H 08/29/20 12:12 BP 121/70 08/29/20 12:12 Pulse Ox 97 08/29/20 12:12 Intake & Output 08/28/20 08/29/20 08/29/20 18:59 06:59 18:59 Intake Total 655 437 465 Output Total 2415 20 10 Balance -1760 417 455 Weight 157.1 kg 154.7 kg Intake: IV 169 143 65 0.9 130 110 50 Pressure Bag 39 33 15 Intake, IV Titration 100 Amount Anidulafungin 100 mg In 100 Sodium Chloride 0.9% 100 ml @ 84 mls/hr IVPB DAILY [facility] Rx#:[id number] Oral 90 Tube Feeding 386 264 Blood Product 310 Rc As-1 Unit 310 [id number] Other 30 Output: Urine 15 20 10 Hemodialysis 2400 Other: Voiding Method Indwelling Catheter Indwelling Catheter Indwelling Catheter # Bowel Movements 1 1 ABP, PAP, CO, CI - Last Documented Arterial Blood Pressure 144/72 - Labs CBC & Chem 7: 08/29/20 04:15 08/29/20 04:15 Labs: Abnormal Lab Results - Last 24 Hours (Table) 08/28/20 08/28/20 08/28/20 Range/Units 18:11 23:24 23:46 WBC (3.8-10.6) k/uL RBC (3.80-5.40) m/uL Hgb (11.4-16.0) gm/dL Hct (34.0-46.0) % MCHC (31.0-37.0) g/dL RDW (11.5-15.5) % Neutrophils # (1.3-7.7) k/uL Monocytes # (0-1.0) k/uL ABG pO2 (83-108) mmHg ABG HCO3 (21-25) mmol/L ABG Total CO2 (19-24) mmol/L Chloride (98-107) mmol/L BUN (7-17) mg/dL Creatinine (0.52-1.04) mg/dL Glucose (74-99) mg/dL POC Glucose (mg/dL) 133 H 138 H 138 H (75-99) mg/dL Calcium (8.4-10.2) mg/dL Stool Occult Blood (Negative) C. difficile (EIA) Intrp (Negative) Crossmatch 08/29/20 08/29/20 08/29/20 Range/Units 04:15 04:15 04:35 WBC 16.4 H (3.8-10.6) k/uL RBC 2.35 L (3.80-5.40) m/uL Hgb 6.0 L* D (11.4-16.0) gm/dL Hct 19.5 L* (34.0-46.0) % MCHC 30.6 L (31.0-37.0) g/dL RDW 18.0 H (11.5-15.5) % Neutrophils # 12.6 H (1.3-7.7) k/uL Monocytes # 1.1 H (0-1.0) k/uL ABG pO2 (83-108) mmHg ABG HCO3 (21-25) mmol/L ABG Total CO2 (19-24) mmol/L Chloride 109 H (98-107) mmol/L BUN 52 H (7-17) mg/dL Creatinine 3.97 H (0.52-1.04) mg/dL Glucose 120 H (74-99) mg/dL POC Glucose (mg/dL) (75-99) mg/dL Calcium 7.9 L (8.4-10.2) mg/dL Stool Occult Blood (Negative) C. difficile (EIA) Intrp Positive A (Negative) Crossmatch 08/29/20 08/29/20 08/29/20 Range/Units 04:47 05:00 05:12 WBC (3.8-10.6) k/uL RBC (3.80-5.40) m/uL Hgb (11.4-16.0) gm/dL Hct (34.0-46.0) % MCHC (31.0-37.0) g/dL RDW (11.5-15.5) % Neutrophils # (1.3-7.7) k/uL Monocytes # (0-1.0) k/uL ABG pO2 75 L (83-108) mmHg ABG HCO3 26 H (21-25) mmol/L ABG Total CO2 27 H (19-24) mmol/L Chloride (98-107) mmol/L BUN (7-17) mg/dL Creatinine (0.52-1.04) mg/dL Glucose (74-99) mg/dL POC Glucose (mg/dL) (75-99) mg/dL Calcium (8.4-10.2) mg/dL Stool Occult Blood Positive H (Negative) C. difficile (EIA) Intrp (Negative) Crossmatch See Detail 08/29/20 08/29/20 Range/Units 05:13 11:42 WBC (3.8-10.6) k/uL RBC (3.80-5.40) m/uL Hgb (11.4-16.0) gm/dL Hct (34.0-46.0) % MCHC (31.0-37.0) g/dL RDW (11.5-15.5) % Neutrophils # (1.3-7.7) k/uL Monocytes # (0-1.0) k/uL ABG pO2 (83-108) mmHg ABG HCO3 (21-25) mmol/L ABG Total CO2 (19-24) mmol/L Chloride (98-107) mmol/L BUN (7-17) mg/dL Creatinine (0.52-1.04) mg/dL Glucose (74-99) mg/dL POC Glucose (mg/dL) 130 H 128 H (75-99) mg/dL Calcium (8.4-10.2) mg/dL Stool Occult Blood (Negative) C. difficile (EIA) Intrp (Negative) Crossmatch
[2020-08-29] MEDS: AMIODARONE 300 MG in DEXTROSE 5% IN WATER 250 ML IV SCH ×2 (15:05)
[2020-08-29] MEDS ORDERED: DEXTROSE 5% IN WATER 100 ML with AMIODARONE 150 MG IV ONE (15:08)
--- NOTE | 2020-08-29 16:01 | P.PCN ---
Date of Procedure: 08/29/20 Preoperative Diagnosis: Left lung collapse/mucous plugs Postoperative Diagnosis: Left lung collapse/mucous plugs Procedure(s) Performed: Bronchoscopy and removal of mucous plugs Anesthesia: KAUR Surgeon: Vikki Ray Financial Report Service Sales Agent #1: Lachelle Paul Pathology: none sent Condition: critical Disposition: ICU Operative Findings: The procedure was done in the intensive care unit. The patient was already intubated on a mechanical ventilator. The patient will be placed on 100% percen t FiO2. The procedure was done was the patient is fully mechanically ventilated adequately oxygenated and ventilated. The patient was on Precedex during the procedure. The patient is currently intubated with a #7.5 orotracheal tube. An adapter was attached to the orotracheal tube and following that the bronchoscope was advanced into the lower trachea. Examination of the tracheal bronchial tree was done. The tip of the ET tube was seen around 2 cm above the rashid. Examination of the distal trachea, right mainstem bronchus, right upper lobe bronchus, bronchus reason the right lower lobe bronchus was within normal limits. Following that, the bronchoscope was moved to the left and there was large amount of mucous plug occupying the left mainstem bronchus. Note that the mucous plugs were somewhat looser compared to earlier evaluations and there were somewhat bloody. The secretions were irrigated with saline and all of the mucous plug was taken out. At the completion of the procedure, airway patency was achieved including the left mainstem bronchus, left upper lobe bronchus and left lower lobe bronchus. There is a segment of the left lower lobe atelectatic. No complications the patient tolerated the procedure well. No oxygen desaturation. No hemodynamic instability. Bronchoscope was removed. The procedure was terminated. The follow-up chest x-rays to be done.
[2020-08-29] MEDS: VANCOMYCIN ORAL SOLUTION 250 MG/5 ML BOTTLE PO SCH ×2 (17:40→23:43)
[2020-08-29 17:44] LABS: Glucose,Whole Blood 128 mg/dL (75-99)
[2020-08-29] MEDS: ATORVASTATIN 80 MG TAB PO SCH (20:12)
[2020-08-29] MEDS ORDERED: ACETAMINOPHEN IV (For NPO) 1,000 MG in EMPTY BAG 1 BAG IVPB PRN (20:35)
[2020-08-29] MEDS: NOREPINEPHRINE 8 MG in SODIUM CHLORIDE 0.9% 250 ML IV SCH (20:47)
[2020-08-29 21:58] LABS: Anisocytosis Slight; HCT 23.8 % (34.0-46.0); Hypochromasia Slight; MCH 27.9 pg (25.0-35.0); MCV 84.7 fL (80.0-100.0); Platelet Count 420 k/uL (150-450); Poikilocytosis Slight; RBC 2.81 m/uL (3.80-5.40); RDW 18.1 % (11.5-15.5); WBC 23.1 k/uL (3.8-10.6)
[2020-08-29 22:25] LABS: HGB 7.9 gm/dL (11.4-16.0)
--- NOTE | 2020-08-29 22:45 | PN ---
PROGRESS NOTE DATE OF SERVICE: 08/29/2020 REASON FOR FOLLOWUP: 1. Aspiration pneumonia. 2. Oropharyngeal candidiasis. 3. C difficile colitis. INTERVAL HISTORY: Patient did spike a fever of 102.1 degrees. The patient is hemodynamically stable though not on any pressor support. The patient remains to be intubated on the vent. FiO2 is currently stable. The patient has developed significant diarrhea. Stool for C difficile was sent which came back positive. PHYSICAL EXAMINATION: Blood pressure is 91/60 with a pulse of 108, temperature 100.1. She is 97% on 40% FIO2. General description is a middle-aged female lying in bed in no distress. Respiratory system: Decreased breath sounds in the bases. No wheeze. Heart S1, S2. Regular rate and rhythm. ABDOMEN: Soft, nondistended. No guarding. No rigidity. LABS: Hemoglobin 6, white count 16.4, BUN of 52, creatinine 3.97. DIAGNOSTIC IMPRESSION AND PLAN: Patient with a new fever, concern for possible negative C diff. However, need to consider possible line-related sepsis. At this point, patient has received adequate antibiotic therapy for her aspiration pneumonia. We will go ahead and discontinue Unasyn. We will add oral vancomycin to cover for C difficile colitis. Blood cultures will be obtained and we will add daptomycin to cover for possible line-related sepsis. Overall prognosis remains to be guarded. Continue supportive care. MMODL / IJN: [id number] /
[2020-08-29 23:52] LABS: Glucose,Whole Blood 117 mg/dL (75-99)
[2020-08-30] MEDS: AMIODARONE 300 MG in DEXTROSE 5% IN WATER 250 ML IV SCH ×2 (00:08)
[2020-08-30] MEDS: INSULIN ASPART (NovoLOG) 100 UNIT/ML VIAL SQ SCH ×5 (00:08→23:53)
[2020-08-30] MEDS: IPRATROPIUM-ALBUTEROL 3 ML NEB INHALATION SCH ×7 (00:27→23:03)
[2020-08-30 04:02] LABS: ABG Base Excess -3.4 mmol/L; ABG HCO3 22 mmol/L (21-25); ABG Oxygen Saturation 98.1 % (94-97); ABG PCO2 38 mmHg (35-45); ABG PH 7.37 (7.35-7.45); ABG PO2 97 mmHg (83-108); ABG TCO2 23 mmol/L (19-24); Allen Test Performed? Yes
[2020-08-30 04:33] LABS: Anisocytosis Slight; Basophils # (A) 0.2 k/uL (0-0.2); Basophils % (A) 1 %; Eosinophils # (A) 0.3 k/uL (0-0.7); Eosinophils % (A) 1 %; HCT 24.2 % (34.0-46.0); HGB 7.8 gm/dL (11.4-16.0); Hypochromasia Slight; Lymphocytes # (A) 3.4 k/uL (1.0-4.8); Lymphocytes % (A) 14 %; MCH 27.7 pg (25.0-35.0); MCHC 32.4 g/dL (31.0-37.0); MCV 85.6 fL (80.0-100.0); Mean Platelet Volume 8.9; Monocytes # (A) 1.7 k/uL (0-1.0); Monocytes % (A) 7 %; Neutrophils # (A) 17.6 k/uL (1.3-7.7); Neutrophils % (A) 74 %; Platelet Count 427 k/uL (150-450); Poikilocytosis Slight; RBC 2.82 m/uL (3.80-5.40); RDW 18.5 % (11.5-15.5); WBC 23.9 k/uL (3.8-10.6)
[2020-08-30] MEDS ORDERED: DILTIAZEM DRIP BOLUS FROM BAG 1 MG SOLN IV STA (04:43)
[2020-08-30 04:47] LABS: Calcium 8.3 mg/dL (8.4-10.2); Potassium 4.8 mmol/L (3.5-5.1)
[2020-08-30] MEDS: DILTIAZEM 125 MG in SODIUM CHLORIDE 0.9% 100 ML IV SCH (04:51)
[2020-08-30 05:45] LABS: Glucose,Whole Blood 120 mg/dL (75-99)
[2020-08-30] MEDS: VANCOMYCIN ORAL SOLUTION 250 MG/5 ML BOTTLE PO SCH ×4 (06:41→23:53)
[2020-08-30] MEDS: METOPROLOL TARTRATE 25 MG TAB PO SCH ×2 (06:41→20:03)
[2020-08-30] MEDS: LEVOTHYROXINE 100 MCG TAB PO SCH (06:41)
[2020-08-30] MEDS: CALCIUM ACETATE 667 MG TAB PO SCH ×3 (06:42→18:24)
--- NOTE | 2020-08-30 07:24 | XR ---
EXAMINATION TYPE: XR chest 1V portable DATE OF EXAM: 08/30/2020 COMPARISON: 08/29/2020 HISTORY: Shortness of breath TECHNIQUE: Single frontal view of the chest is obtained. FINDINGS: There is improved aeration involving the left hemithorax with persistent large area of con solidation and pleural effusion. ET tube, NG tube and left-sided PICC line stable. Diffuse interstiti al pattern seen with tiny right effusion and basilar infiltrate. IMPRESSION: 1. Mild improved aeration of in the left upper lobe. Findings could been the basis of pneumonia. Endo bronchial lesion or mucous plug on the left in the differential diagnosis. Venous congestion not excl uded.
[2020-08-30] MEDS: FORMOTEROL FUMARATE 20 MCG/2 ML NEBU INHALATION SCH ×2 (07:26→19:03)
[2020-08-30] MEDS: BUDESONIDE 1 MG/2 ML NEBU INHALATION SCH ×2 (07:26→19:03)
--- NOTE | 2020-08-30 09:10 | P.PCN ---
Date of Procedure: 08/30/20 Procedure(s) Performed: BRIEF HISTORY: Patient is a 55-year-old, pleasant, white female scheduled for an upper endoscopy as a part of evaluation of acute upper GI bleed. The patient has been in the intensive care unit with acute respiratory failure presently intubated and sedated and mechanical ventilation. She has history of A. fib and has been on Lovenox and hasn't been on hold for the last 2 days. She started having acute GI bleed with multiple episodes of black tarry stools for the last 2 days. Dropped hemoglobin to 6.8 requiring 2 units of PRBC transition. She is hence scheduled for an upper endoscopy to evaluate further. PROCEDURE PERFORMED: Esophagogastroduodenoscopy. PREOPERATIVE DIAGNOSIS: []. Patient intubated and sedated PROCEDURE: After informed consent was obtained, the procedure was performed in the intensive care unit at the bedside under continuous monitoring. Initially the Olympus GIF-140 video endoscope was inserted into the mouth. Esophagus intubated without any difficulty. It was gradually advanced into the stomach and duodenum and carefully examined. The bulb and the second part of the duodenum appeared normal. The scope at this time was withdrawn to the stomach, adequately insufflated with air, and upon careful examination, mucosa of the antrum, appeared normal. In the proximal body the stomach 3-4 cm distal to the GE junction there was active bleeding from a 1 cm ulceration noted. Irrigation was performed and there was brisk bleeding identified from the ulcer base.. At this time I proceeded with Endo Clip placement and 2 clips had to be placed and hemostasis was achieved. The rest of the body, cardia and the fundus appeared normal. The scope was then withdrawn into the esophagus. The GE junction was located at 39 cm from the incisors. The esophagus appeared normal. There were no erosions or ulcerations seen and the patient tolerated the procedure well. IMPRESSION: 1. 1 cm proximal gastric ulcer just distal to the GE junction along the lesser curvature with active bleeding status post Endo Clip placement as described above with good hemostasis. 2. Small hiatal hernia. RECOMMENDATIONS: The findings of this examination were discussed with Dr. Ray. At this time she'll be continued on Protonix 40 mg every 12 hours. Monitor CBC every 12 hours and transfuse if hemoglobin is less than 7. NG tube in be placed and tube feeds resume if the hemoglobin remains stable. Continue to hold Lovenox for now. She can proceed with PEG tube placement by tomorrow.
[2020-08-30] MEDS: CHLORHEXIDINE GLUCONATE 15 ML CUP MUCOUS MEM SCH ×2 (09:28→20:03)
[2020-08-30] MEDS: PARoxetine 20 MG TAB PO SCH (09:28)
[2020-08-30] MEDS: AMIODARONE 200 MG TAB PO SCH ×2 (09:28→20:03)
[2020-08-30] MEDS: PANTOPRAZOLE 40 MG/10 ML VIAL IVP SCH (09:29)
[2020-08-30] MEDS: ERGOCALCIFEROL 50,000 UNIT CAP PO SCH (09:29)
[2020-08-30] MEDS: ANIDULAFUNGIN 100 MG in SODIUM CHLORIDE 0.9% 100 ML IVPB SCH (09:51)
--- NOTE | 2020-08-30 09:51 | XR ---
EXAMINATION TYPE: XR abdomen 1V DATE OF EXAM: 08/30/2020 COMPARISON: NONE HISTORY: NG tube placement TECHNIQUE: One view abdominal series FINDINGS: Limited exam demonstrates an NG tube in the left upper quadrant likely within the stomach. Visualized bowel gas pattern nonspecific. Hypertrophic changes of the spine. IMPRESSION: 1. NG tube appears within the left upper quadrant likely in the stomach
[2020-08-30 12:04] LABS: Glucose,Whole Blood 123 mg/dL (75-99)
--- NOTE | 2020-08-30 12:29 | P.PN ---
Subjective Patient is seen in follow-up for acute kidney injury. She is currently hemodialysis dependent. She is intubated, on 100% FiO2 but is being weaned. She went into A. fib with RVR last night and is maintained on Cardizem drip. She is also on low-dose Levophed. 2 feeding is currently held. She received blood transfusion yesterday and hemoglobin was 7.8 this morning. Vital signs are stable. General: The patient appeared well nourished and normally developed. HEENT: Head exam is unremarkable. Intubated. LUNGS: Breath sounds decreased. HEART: Rate and Rhythm are regular. ABDOMEN: Soft, obese. EXTREMITITES: 2+ edema. Objective - Vital Signs Vital signs: Vital Signs Temp 99.5 F 08/30/20 08:00 Pulse 84 08/30/20 11:00 Resp 20 08/30/20 11:00 BP 104/64 08/29/20 18:59 Pulse Ox 99 08/30/20 11:00 Intake & Output 08/29/20 08/30/20 08/30/20 18:59 06:59 18:59 Intake Total 0703.285 6637.040 157.462 Output Total 30 2715 30 Balance 1081.037 -1620.960 127.462 Weight 150.1 kg Intake: IV 334 256 65 0.9 120 220 50 Anidulafungin 100 mg In 100 Sodium Chloride 0.9% 100 ml @ 84 mls/hr IVPB DAILY [facility] Rx#:[id number] Desmopressin Acetate 18 50 mcg In Sodium Chloride 0. 9% 50 ml @ 200 mls/hr IVPB ONCE ONE Rx#: [id number] Pressure Bag 64 36 15 Intake, IV Titration 67.037 838.040 92.462 Amount Amiodarone 300 mg In 362.917 Dextrose 5% in Water 250 ml @ 0.5 MG/MIN 25 mls/hr IV .Q10H [facility] Rx#: [id number] Dexmedetomidine/0.9% NaCl 67.037 36.290 (Pmx) 400 mcg In Empty Bag 1 bag @ Titrate IV . Q0M [facility] Rx#:[id number] Diltiazem 125 mg In 9.625 Sodium Chloride 0.9% 100 ml @ 7.5 MG/HR 7.5 mls/hr IV .[id number] [facility] Rx#: [id number] Norepinephrine 8 mg In 135.155 Sodium Chloride 0.9% 250 ml @ 0.05 MCG/KG/MIN 14. 967 mls/hr IV .[id number] [facility] Rx#:[id number] propofoL 1,000 mg In 294.053 92.462 Empty Bag 1 bag @ Titrate IV .Q0M [facility] Rx#: [id number] Oral 90 Blood Product 620 Rc As-1 Unit 310 [id number] Rc As-1 Unit 310 [id number] Output: Urine 30 15 30 Stool 2700 Other: Voiding Method Indwelling Catheter Indwelling Catheter Indwelling Catheter ABP, PAP, CO, CI - Last Documented Arterial Blood Pressure 107/55 - Labs CBC & Chem 7: 08/30/20 04:07 08/30/20 04:07 Labs: Abnormal Lab Results - Last 24 Hours (Table) 08/29/20 08/29/20 08/29/20 Range/Units 05:00 17:42 21:49 WBC 23.1 H (3.8-10.6) k/uL RBC 2.81 L (3.80-5.40) m/uL Hgb 7.9 L D (11.4-16.0) gm/dL Hct 23.8 L (34.0-46.0) % RDW 18.1 H (11.5-15.5) % Neutrophils # (1.3-7.7) k/uL Monocytes # (0-1.0) k/uL ABG O2 Saturation (94-97) % Chloride (98-107) mmol/L Carbon Dioxide (22-30) mmol/L BUN (7-17) mg/dL Creatinine (0.52-1.04) mg/dL Glucose (74-99) mg/dL POC Glucose (mg/dL) 128 H (75-99) mg/dL Calcium (8.4-10.2) mg/dL Crossmatch See Detail 08/29/20 08/30/20 08/30/20 Range/Units 23:50 03:55 04:07 WBC 23.9 H (3.8-10.6) k/uL RBC 2.82 L (3.80-5.40) m/uL Hgb 7.8 L (11.4-16.0) gm/dL Hct 24.2 L (34.0-46.0) % RDW 18.5 H (11.5-15.5) % Neutrophils # 17.6 H (1.3-7.7) k/uL Monocytes # 1.7 H (0-1.0) k/uL ABG O2 Saturation 98.1 H (94-97) % Chloride (98-107) mmol/L Carbon Dioxide (22-30) mmol/L BUN (7-17) mg/dL Creatinine (0.52-1.04) mg/dL Glucose (74-99) mg/dL POC Glucose (mg/dL) 117 H (75-99) mg/dL Calcium (8.4-10.2) mg/dL Crossmatch 08/30/20 08/30/20 08/30/20 Range/Units 04:07 05:43 12:00 WBC (3.8-10.6) k/uL RBC (3.80-5.40) m/uL Hgb (11.4-16.0) gm/dL Hct (34.0-46.0) % RDW (11.5-15.5) % Neutrophils # (1.3-7.7) k/uL Monocytes # (0-1.0) k/uL ABG O2 Saturation (94-97) % Chloride 111 H (98-107) mmol/L Carbon Dioxide 21 L (22-30) mmol/L BUN 76 H (7-17) mg/dL Creatinine 5.36 H (0.52-1.04) mg/dL Glucose 112 H (74-99) mg/dL POC Glucose (mg/dL) 120 H 123 H (75-99) mg/dL Calcium 8.3 L (8.4-10.2) mg/dL Crossmatch Assessment and Plan Plan: Assessment: 1. Acute kidney injury, currently hemodialysis dependent. Etiology is ATN secondary to septic shock. Urine output 0-5 mL an hour. Diuretic unresponsive. Baseline creatinine near 1. 2. Septic shock secondary to pneumonia. Status post bronchoscopy on August 26 and this morning with removal of mucous plug. Maintained on antibiotics. 3. Volume overload. Improving with ultrafiltration. 4. Metabolic acidosis secondary to acute kidney injury. Stable. 5. Hypervolemic hyponatremia. Improved with ultrafiltration. 6. Hyperphosphatemia secondary to acute kidney injury Maintained on PhosLo. 7. Anemia secondary to acute GI bleed. Component of underlying renal disease. Maintained on Aranesp. Status post blood transfusion on August 29. Status post IV DDAVP. Status post EGD this morning - gastric ulcer noted with active bleeding status post Endo Clip. 8. A. fib with RVR maintained on Cardizem drip. 9. C. diff colitis maintained on oral vancomycin. Plan: Hemodialysis today with 2-3 L ultrafiltration is able to tolerate. Wean FiO2. Continue to monitor renal function and urine output. Patient's dialysis catheter was placed August 20. Vascular surgery has been reconsulted for permacath placement - placement was held due to acute bleeding. Scheduled for tracheostomy and PEG tube in the near future.
[2020-08-30 12:43] LABS: Anisocytosis Slight; HCT 24.2 % (34.0-46.0); HGB 7.8 gm/dL (11.4-16.0); Hypochromasia Slight; MCH 27.9 pg (25.0-35.0); MCHC 32.2 g/dL (31.0-37.0); MCV 86.7 fL (80.0-100.0); Mean Platelet Volume 7.9; Platelet Count 498 k/uL (150-450); Poikilocytosis Slight; RBC 2.79 m/uL (3.80-5.40); RDW 18.7 % (11.5-15.5); WBC 28.2 k/uL (3.8-10.6)
--- NOTE | 2020-08-30 14:09 | P.PN ---
Subjective Progress Note Date: 08/30/20 This is a 55-year-old female patient was hospitalized on 08/16/2020 with an acute left lower lobe pneumonia sepsis. Note that the patient has undergone a bronchoscopy on 08/17/2024 mucous plugs. The sepsis and the left lower lobe pneumonia was felt to be related to Streptococcus pneumonia. The Streptococcus pneumoniae was cultured in the sputum sample. Blood cultures of been negative. The patient was intubated, extubated on the same daily intubated has is that she has been on a mechanical ventilator. At this point in time, the patient is on a assist-control mode of using the VAC plus mode. The patient is respiratory rate of 350 tidal volume of 350 FiO2 of 50 and PEEP of 8. The i nspiratory time is at 0.9 seconds. The blood gases from today shows a pH of 7.27 with a pCO2 of 38 and pO2 93. The chest x-ray from today showing pulmonary edema along with cardiomegaly. There is increased interstitial infiltrates bilaterally in addition to her left lower lobe consolidation/airspace disease. ET tube remains in a good location. The patient is sedated with propofol which is running at 30 mics micrograms per kilogram per minute. The patient during the course of her treatment, developed an acute kidney injury, currently she is on hemodialysis last dialysis being on 08/22/2020 with a total of 3.5 L of fluid was ultrafiltrated. The patient is on growth spectrum antibiotics including a combination of IV Unasyn and the patient is also on IV Eraxis. In terms of hemodynamics, the patient is still pressor dependent. The neck fluid balance has been negative as the patient has been undergoing dialysis with ultrafiltration. The chest x-ray showing a left lower lobe consolidation With adequate positioning of the ET tube. The patient has an orogastric tube for enteral feeding and nutritional support and the patient also has a PICC line in the left upper extremity. The echo of the heart showed a moderate concentric LVH with an ejection fraction of 30-35%. There was mild aortic sclerosis and severe pulmonary hypertension with a PA pressure of 66 mmHg. The patient has been having also approximately atrial fibrillation. She is currently on oral amiodarone. She is also on metoprolol for rate control. She was on IV heparin was discontinued due to nosebleed subsequently the patient was started on oral anticoagulation with Eliquis. The patient's other comorbidities include obstructive sleep apnea and the patient has not been completely compliant to CPAP therapy, she has been morbidly obese, hypothyroid and history of bronchial asthma. The plan for today still undergo another session of hemodialysis with ultrafiltration. The white cell count remains elevated yet is down from yesterday is down to 29.2. On 08/25/2020 the patient is being seen for a follow-up. The patient remains on a mechanical ventilator. On today's evaluation, the patient is an assist- control mode at a rate of 26 with a tidal volume of 450 and FiO2 of 50% with a PEEP of 8. Blood gases from today showed a pH of 7.34 with a pCO2 of 36 and pO2 of 104 and this was on FiO2 of 50%. The patient is on propofol for sedation running at 55 mg per KG per minute. The patient is on normal saline at the rate of 20 mL an hour and the patient is also on vital high protein at the rate of 36 mL for enteral feeding and nutritional support. The patient underwent hemodialysis yesterday without a total of 3 L of fluid was removed. Urine output is low in the order of 15-20 mL. The chest x-ray still showing diffuse bilateral pulmonary infiltrates and CHF along with cardiomegaly anterolaterally unchanged compared to yesterday. The patient is afebrile. White cell count is down to 22. Hemoglobin stable at 8.9. Rest of the blood work shows a BUN of 45, creatinine 3.2, and the patient is a mild anion gap metabolic acidosis with a serum bicarb of 18. The triglyceride level came back at 1492. The patient's cardiac rhythm is sinus. The patient remains on antibiotic ventilation with Eliquis. On 08/26/2020, the patient is being seen for a follow-up. This morning, the patient is on Precedex. I'm glad to report to the patient's been off Diprivan and we will gradually going to wean off the Precedex and assess the patient's mental status. Precedex is running at 0.5 mg per KG per minute. The patient remains on a mechanical ventilator on assist control mode at the rate of 26 and a tidal volume of 450 and FiO2 of 50% with a PEEP of 6. PH is at 7.4 with a pCO2 of 37 and pO2 of 64. Chest x-ray shows volume loss and complete investigation of the left lung most likely secondary to a mucous plug as the patient has a cutoff sign in the distal left mainstem bronchus. Based on that, a bedside bronchoscopy was done and copious amounts of mucous plugs were aspirated from the left mainstem bronchus. There cultures were sent from the bronchioloalveolar lavage was obtained from the left lower lobe. Meanwhile, the patient remains on IV Unasyn. The patient is afebrile. The patient's hemoglobin is stable. The patient undergoing daily hemodialysis ultrafiltration and another session is planned for today. Note that following the bronchoscopy, ALMOND SORTER chest x-ray was done and the patient did not show adequate expansion of the left lung. Based on that, increase the PEEP to 12 and a repeat chest x-rays to follow. The patient is tolerating enteral feeding for nutritional support with vital HP of 36 mL an hour. A repeat chest x-ray that was done later on in the afternoon showed reexpansion of the left lung although there is some ongoing basilar atelectasis on the basis On 08/27/2020, the patient demonstrates adequate expansion of the left lung although expect has not completed the patient continues to have some atelectatic changes and left lung base. I have her on a mechanical ventilator. I have on a PEEP of 12. Tidal volumes of 450 with a rate of 20 and an FiO2 of 50%. The blood gases from today showed adequate oxygenation with a pH of 7.38 with a pCO2 of 42 and pO2 of 154. The chest x-ray is showing interstitial infiltrates secondary to fluid overload/CHF. The left base is still atelectatic and there are probably some small bilateral pleural effusions. Nevertheless, the atelectasis that was related to the mucous plug has recovered. The patient is currently on Precedex which will be taken off her mental status will be assessed. She is afebrile. She will be undergoing another session of hemodialysis with ultrafiltration. Her volume status has improved considerably as the patient is receiving daily dialysis with ultrafiltration. She remains on enteral nutrition with vital high protein. My plan is to discontinue the sedation completely. Assess her mental status. Assessment weaning parameters. Her white cell count of 19.6 with a hemoglobin of 7.6. The rest of the carotids showed BUN of 32 with a creatinine of 3.57. Sodium is at 140 with a serum bicarb of 23. The patient remains on IV Unasyn. The patient also remains on E raxis per IDs recommendations. 08/28/2020, the patient continues to have issues most significant of which is the recurrent collapse of the left lung as the patient's chest x-ray from today shows complete opacification of the left lung. Based on that, an emergent bronchoscopy was done at the bedside and the patient continued to have significant amount of mucous plugs that was evacuated from the left lung. Patency of the airway was achieved. The second problem isn't altered mentation as the patient is not recovering well off the sedation and the patient has been off the sedation for the past 24 hours. On today's evaluation, she does some minimal amount of grimacing upon painful stimulation. Nevertheless, the patient is not following any significant commands. She is not opening her eyes spontaneously. No purposeful movement has been documented by the nursing staff. The patient remains on a mechanical ventilator. The patient currently is on a assist-control mode rate of 20 with a tidal volume of 450 and FiO2 50% with a PEEP of 5. She is on lovastatin rate of 20 mL an hour. Cardiac rhythm is sinus. There are diminished breath on the left. The third spacing and the edema is improved considerably as the patient underwent daily hemodialysis. No fever. Remains on IV Unasyn. No other significant events over the past 24 hours for now. The patient is still receiving enteral feeding for nutritional support. She is tolerating a diet without any major difficulties. 08/29/2020, the patient is having several issues. First of all, while on the mechanical ventilator, the left lung is again collapse. Despite the bronchoscopy was done yesterday, the left lung is still showing volume loss and a cutoff sign at the level of the left mainstem bronchus consistent with a mu cous plug. Nevertheless, this has not affected the patient's oxygenation. The patient is currently on assist control mode at the rate of 20 with a tidal volume of 450 and FiO2 of 40% with a PEEP of 5. The blood gas showed a pH of 7.43 with a pCO2 of 40 and pO2 of 75. Nevertheless, the patient has not shown adequate recovery in terms of her mentation. She is been off sedation for the past 48 hours. During the day, started becoming progressively more restless and agitated and asynchronous with a mechanical ventilator. She had to be restarted back on a low-dose Precedex. At the same time, the patient developed an upper GI bleed. She developed melanotic stool and she dropped her hemoglobin down to 6.0 this morning. White cell count at 16.4. Platelet count is at 445. Coagulation profile is within normal limits. No hematemesis. She'll feeds were discontinued. Note that the patient was also offered Eliquis 9 and the patient was seeking a insertion of a permanent hemodialysis catheter and the patient has not taken Eliquis since 08/27/2020. As such, no antidote reversal of Eliquis was given. The patient will be seen by gastroenterology. I performed a bedside bronchoscopy. Morbid is plugs were aspirated from the left lung. The patient is to receive a total of 2 units of packed RBCs. Her IV fluids need to be increased and the patient is to be given a bolus of IV fluid with normal saline. Aspirin we'll replaced on hold. On 08/30/2020, the patient remains sedated on propofol and she is calm and comfortable. She remains on a mechanical ventilator. She is intubated by #7.5 orotracheal tube. She is on assist control mode at the rate of 20 with a tidal volume of 450 and FiO2 of 40% with a PEEP of 5. Blood gas showed a pH of 7.37 with a pCO2 of 38 and pO2 97. The chest x-ray shows partial reexpansion of the left upper lobe. There is Still atelectasis of left lower lobe post bronchoscopy and therapeutic it was suctioning and removal of mucous plugs. The patient is having significant amount of mucous plugs. I did a fourth bronchoscopy today where I was able to utilize a regular bronchoscope and I was able to evacuate all of the mucous plugs without any major difficulties and by the completion of today's procedure, the patient taken airways to the left upper lobe, lingula and left lower lobe. The patient meanwhile had an EGD done by gastroenterology. EGD showed a gastric ulcer that was ligated and clipped. This was a 1 cm proximal gastric ulcer distal to the GE junction along the lesser curvature of the stomach. There was also a small hiatal hernia. Noted the patient is off tube feeds pH is not showing any signs of bleeding patient is also off articulation for now. She has requiring boluses levo fed at a dose of 0.04 mg per KG per minute. IV fluids at KVO. The patient is receiving periodic hemodialysis per nephrology will remain to be on the case. My plan was to proceed with a tracheostomy and PEG tube insertion this patient and for that reason general surgery has been consulted for insertion of a tracheostomy and a PEG tube insertion of a later stage. The white cell count is 28. Hemoglobin was at 7.8. The renal function shows a BUN of 76 with a creatinine of 5.36. She remains on IV Unasyn. She did receive packed RBC blood transfusion and hemoglobin has been stable at 7.8. The plan is also to proceed with a hemodi alysis ultrafiltration of 3 L of long as the patient is able to tolerate. Objective - Vital Signs Vital signs: Vital Signs Temp 99 F 08/30/20 12:00 Pulse 87 08/30/20 13:00 Resp 20 08/30/20 13:00 BP 104/64 08/29/20 18:59 Pulse Ox 98 08/30/20 13:00 Intake & Output 08/29/20 08/30/20 08/30/20 18:59 06:59 18:59 Intake Total 2798.157 6720.040 283.462 Output Total 30 2715 30 Balance 1081.037 -1620.960 253.462 Weight 150.1 kg Intake: IV 334 256 91 0.9 120 220 70 Anidulafungin 100 mg In 100 Sodium Chloride 0.9% 100 ml @ 84 mls/hr IVPB DAILY [facility] Rx#:[id number] Desmopressin Acetate 18 50 mcg In Sodium Chloride 0. 9% 50 ml @ 200 mls/hr IVPB ONCE ONE Rx#: [id number] Pressure Bag 64 36 21 Intake, IV Titration 67.037 838.040 192.462 Amount Amiodarone 300 mg In 362.917 Dextrose 5% in Water 250 ml @ 0.5 MG/MIN 25 mls/hr IV .Q10H [facility] Rx#: [id number] Dexmedetomidine/0.9% NaCl 67.037 36.290 (Pmx) 400 mcg In Empty Bag 1 bag @ Titrate IV . Q0M [facility] Rx#:[id number] Diltiazem 125 mg In 9.625 Sodium Chloride 0.9% 100 ml @ 7.5 MG/HR 7.5 mls/hr IV .[id number] [facility] Rx#: [id number] Norepinephrine 8 mg In 135.155 Sodium Chloride 0.9% 250 ml @ 0.05 MCG/KG/MIN 14. 967 mls/hr IV .[id number] [facility] Rx#:[id number] propofoL 1,000 mg In 294.053 192.462 Empty Bag 1 bag @ Titrate IV .Q0M [facility] Rx#: [id number] Oral 90 Blood Product 620 Rc As-1 Unit 310 [id number] Rc As-1 Unit 310 [id number] Output: Urine 30 15 30 Stool 2700 Other: Voiding Method Indwelling Catheter Indwelling Catheter Indwelling Catheter ABP, PAP, CO, CI - Last Documented Arterial Blood Pressure 120/65 - Exam Gen. appearance the patient is intubated, comfortable mechanical ventilator status the mechanical ventilator on assist control mode and orogastric and orotracheal tube are both in place. Patient is morbidly obese. The patient is currently back on sedation the patient is on a low dose of Precedex. Head exam was generally normal. There was no scleral icterus or corneal arcus. Mucous membranes were moist. Neck was supple and without jugular venous distension, thyromegaly, or carotid bruits. Carotids were easily palpable bilaterally. There was no adenopathy. My normal lungs breath sounds are quite diminished in the left lung base compared to the right. Cardiac exam revealed the PMI to be normally situated and sized. The rhythm was regular and no extrasystoles were noted during several minutes of auscultation. The first and second heart sounds were normal and physiologic splitting of the second heart sound was noted. There were no murmurs, rubs, clicks, or gallops. Abdominal exam revealed normal bowel sounds. The abdomen was soft, non-tender, and without masses, organomegaly, or appreciable enlargement of the abdominal aorta. Extremities revealed trace edema and there is clubbing and the patient has a PICC line in left upper extremity. The patient has edema in all 4 extremities and the patient has a Artline catheter in the right radial artery Neurologically the patient is sedated. The patient is calm and comfortable cigarettes with the mechanical ventilator. - Labs CBC & Chem 7: 08/30/20 12:00 08/30/20 04:07 Labs: Abnormal Lab Results - Last 24 Hours (Table) 08/29/20 08/29/20 08/29/20 Range/Units 05:00 17:42 21:49 WBC 23.1 H (3.8-10.6) k/uL RBC 2.81 L (3.80-5.40) m/uL Hgb 7.9 L D (11.4-16.0) gm/dL Hct 23.8 L (34.0-46.0) % RDW 18.1 H (11.5-15.5) % Plt Count (150-450) k/uL Neutrophils # (1.3-7.7) k/uL Monocytes # (0-1.0) k/uL ABG O2 Saturation (94-97) % Chloride (98-107) mmol/L Carbon Dioxide (22-30) mmol/L BUN (7-17) mg/dL Creatinine (0.52-1.04) mg/dL Glucose (74-99) mg/dL POC Glucose (mg/dL) 128 H (75-99) mg/dL Calcium (8.4-10.2) mg/dL Crossmatch See Detail 08/29/20 08/30/20 08/30/20 Range/Units 23:50 03:55 04:07 WBC 23.9 H (3.8-10.6) k/uL RBC 2.82 L (3.80-5.40) m/uL Hgb 7.8 L (11.4-16.0) gm/dL Hct 24.2 L (34.0-46.0) % RDW 18.5 H (11.5-15.5) % Plt Count (150-450) k/uL Neutrophils # 17.6 H (1.3-7.7) k/uL Monocytes # 1.7 H (0-1.0) k/uL ABG O2 Saturation 98.1 H (94-97) % Chloride (98-107) mmol/L Carbon Dioxide (22-30) mmol/L BUN (7-17) mg/dL Creatinine (0.52-1.04) mg/dL Glucose (74-99) mg/dL POC Glucose (mg/dL) 117 H (75-99) mg/dL Calcium (8.4-10.2) mg/dL Crossmatch 08/30/20 08/30/20 08/30/20 Range/Units 04:07 05:43 12:00 WBC 28.2 H (3.8-10.6) k/uL RBC 2.79 L (3.80-5.40) m/uL Hgb 7.8 L (11.4-16.0) gm/dL Hct 24.2 L (34.0-46.0) % RDW 18.7 H (11.5-15.5) % Plt Count 498 H (150-450) k/uL Neutrophils # (1.3-7.7) k/uL Monocytes # (0-1.0) k/uL ABG O2 Saturation (94-97) % Chloride 111 H (98-107) mmol/L Carbon Dioxide 21 L (22-30) mmol/L BUN 76 H (7-17) mg/dL Creatinine 5.36 H (0.52-1.04) mg/dL Glucose 112 H (74-99) mg/dL POC Glucose (mg/dL) 120 H (75-99) mg/dL Calcium 8.3 L (8.4-10.2) mg/dL Crossmatch 08/30/20 Range/Units 12:00 WBC (3.8-10.6) k/uL RBC (3.80-5.40) m/uL Hgb (11.4-16.0) gm/dL Hct (34.0-46.0) % RDW (11.5-15.5) % Plt Count (150-450) k/uL Neutrophils # (1.3-7.7) k/uL Monocytes # (0-1.0) k/uL ABG O2 Saturation (94-97) % Chloride (98-107) mmol/L Carbon Dioxide (22-30) mmol/L BUN (7-17) mg/dL Creatinine (0.52-1.04) mg/dL Glucose (74-99) mg/dL POC Glucose (mg/dL) 123 H (75-99) mg/dL Calcium (8.4-10.2) mg/dL Crossmatch Assessment and Plan Plan: 1 acute hypoxic respiratory failure secondary to left lower lobe pn eumonia/sepsis. The patient continues to have recurrent mucous plugs obstructing the left lung with secondary left lung atelectasis. The patient underwent a bronchoscopy 3 and despite that the patient is developing recurrent mucous plugs of the left mainstem bronchus and a bronchoscopy was done today with further exacerbation of mucous plugs from the left mainstem bronchus. A fourth bronchoscopy was done today and by the completion of the fourth bronchoscopy, complete hemostasis was achieved. Expect further expansion of the left lung. Left upper lobe is expanded and left lower lobe is still atelectatic. 2 septic shock secondary to the left lower lobe pneumonia secondary to pneumococcus/strep pneumonia, currently on no pressors and the patient is completing a course of IV Unasyn 3 acute kidney injury currently hemodialysis dependent. the patient developed an acute kidney injury secondary to pneumonia/sepsis. The patient is currently on hemodialysis and the patient is going to undergo a dialysis with ultrafiltration of 2-3 L today and she will require a permacath catheter insertion of a later stage. 4 upper GI bleed with a drop in hemoglobin secondary to GI bleed and subsequent hemoglobin is up to 7.8. The EGD showed a proximal gastric ulcer just distal to the GE junction and the level of the lesser curvature of the stomach and the patient had an Endo Clip placement with good hemostasis. The patient is currently off anticoagulation the patient is on IV Protonix. 5 history of bronchial asthma 6 history obstructive sleep apnea noncompliant to CPAP therapy, would possibly the pickwickian syndrome 7 diabetes mellitus type 2, currently on a sliding scale coverage 8 hypothyroidism 9 CHF with impaired ejection fraction of 30-35%. This is considered to be a s ystolic heart failure, could be sepsis induced and the patient has a component of severe pulmonary hypertension. 10 persistent leukocytosis most likely improved compared to yesterday 11 non-anion gap metabolic acidosis, recovered 12 paroxysmal atrial fibrillation current rhythm is sinus 13 hypertriglyceridemia secondary to propofol infusion. Note that the patient has been off sedation for the past 24 hours. Propofol was discontinued. Precedex is currently running at a lower dose. 14 encephalopathy, most likely drug induced. 15 morbid obesity 16 acute blood loss anemia and hemoglobin is stable for now. Plan Continue ventilator support A fourth bronchoscopy was done today and repeat chest x-ray be obtained for tomorrow. Meanwhile keep the same ventilator setting. The patient completed EGD today and the bleeding is controlled for now. Hemoglobin stable. Use Precedex instead of propofol for sedation. This which will be done today. Restart Precedex if the low dose Continue antibiotic coverage Continue hemodialysis per nephrology and the patient would have another session of dialysis with a 2-3 L of ultrafiltration today. Keep aspirin on hold Hold the tube feeds General surgery has been consulted for PEG tube and a tracheostomy tube insertion Condition is critical we'll continue to follow make further recommendations based on her progress. Critically care management was done more than 30 minutes. Time with Patient: Greater than 30
--- NOTE | 2020-08-30 14:11 | P.PCN ---
Date of Procedure: 08/30/20 Preoperative Diagnosis: Left lower lobe atelectasis/mucous plugs Postoperative Diagnosis: Same Procedure(s) Performed: Bronchoscopy and evacuation of mucous plugs Anesthesia: MAC Surgeon: Vikki Ray Pathology: none sent Condition: critical Disposition: ICU Operative Findings: The procedure was done in the intensive care unit. The patient was already intubated on a mechanical ventilator. The patient will be placed on 100% percent FiO2. The procedure was done was the patient is fully mechanically ventilated adequately oxygenated and ventilated. The patient was on Precedex during the procedure. The patient is currently intubated with a #7.5 orotracheal tube. An adapter was attached to the orotracheal tube and following that the bronchoscope was advanced into the lower trachea. Examination of the tracheal bronchial tree was done. The tip of the ET tube was seen around 2 cm above the rashid. Examination of the distal trachea, right mainstem bronchus, right upper lobe bronchus, bronchus reason the right lower lobe bronchus was within normal limits. Following that, the bronchoscope was moved to the left and there was large amount of mucous plug occupying the left lower lobe bronchus. Infected with various segments of the left lower lobe airways were again plugged with some tiny pieces of bloody purulent mucous plugs. The rashid between the left upper lobe and the lower lobe was visualized. Left upper lobe bronchus was patent. The leg or segment was patent . Majority of the mucous plugs were in the left lower lobe. Herpetic it was suctioning was done. The secretions were irrigated with saline. Mechanical dislodgment of the mucous plugs was done using the flexible bronchoscope. The brush was also used to manipulate the secretions. At the completion of the procedure, airway patency was achieved including the left mainstem bronchus, left upper lobe bronchus and left lower lobe bronchus. There is a segment of the left lower lobe atelectatic. No complications the patient tolerated the procedure well. No oxygen desaturation. No hemodynamic instability. Bronchoscope was removed. The procedure was terminated. The follow-up chest x- rays to be done.
[2020-08-30] MEDS: NOREPINEPHRINE 8 MG in SODIUM CHLORIDE 0.9% 250 ML IV SCH ×2 (15:18→16:49)
--- NOTE | 2020-08-30 16:06 | P.PN ---
Subjective Progress Note Date: 08/30/20 CHIEF COMPLAINT: Vent dependent respiratory failure HISTORY OF PRESENT ILLNESS: The patient is a 55-year-old female with ESRD, chronic diarrhea, abnormal chest xray for COVID-19 who is in the ICU with full mechanical ventilatory support. Yesterday, she had a decline in her hemoglobin. This morning, she had upper endoscopy with clipping for duodenal ulcer per GI. Patient's currently on hemodialysis at the time of assessment. She is in full mechanical support. ROS: Fecal back system for chronic diarrhea. Full mechanical support. PHYSICAL EXAM: VITAL SIGNS: Reviewed CONSTITUTIONAL: Well developed and in no acute distress. EYES: Conjuctivae without sclera icterus. HEAD, EARS, NOSE, THROAT: Moist buccal mucosa. Head is atraumatic, normocephalic. NECK: No thyroidomegaly. RESPIRATORY: Non-labored respirations and equal bilateral excursions. Full mechanical support. CARDIOVASCULAR: Palpable 2+ radial pulses. ABDOMEN: No peritonitis. Fecal stool system dark. MUSCULOSKELETAL: No gross deformity of the lower extremities noted. No clubbing. No cyanosis. SKIN: Good skin turgor. Well perfused. NEUROLOGIC: No spontaneous movements : Peterson clear yellow urine PSYCH: Non purposeful movement. CLINICAL LABS: White blood cell count elevated over 16,000 now over 26,000. Hemoglobin stable 7.6 following blood transfusion. ASSESSMENT: 1. Sepsis 2. CDiff colitis. 3. Super morbid obesity 4. Vent dependent respiratory failure 5. Acute blood loss anemia due to bleeding duodenal ulcer PLAN: 1. Patient's white count over 26,000 including recent clipping of duodenal ulcer. Per discussion with nursing, patient stable to proceed with gastrostomy tube placement. 2. Overall, patient high risk for periprocedural complications due to recent gastrointestinal bleeding. 3. At this time, patient pending tracheostomy as well for the dependent respiratory failure Objective - Vital Signs Vital signs: Vital Signs Temp 99 F 08/30/20 12:00 Pulse 89 08/30/20 15:03 Resp 20 08/30/20 15:00 BP 104/64 08/29/20 18:59 Pulse Ox 96 08/30/20 15:00 Intake & Output 08/29/20 08/30/20 08/30/20 18:59 06:59 18:59 Intake Total 0529.076 2531.040 604.347 Output Total 30 2715 30 Balance 1081.037 -1620.960 574.347 Weight 150.1 kg Intake: IV 334 256 117 0.9 120 220 90 Anidulafungin 100 mg In 100 Sodium Chloride 0.9% 100 ml @ 84 mls/hr IVPB DAILY [facility] Rx#:[id number] Desmopressin Acetate 18 50 mcg In Sodium Chloride 0. 9% 50 ml @ 200 mls/hr IVPB ONCE ONE Rx#: [id number] Pressure Bag 64 36 27 Intake, IV Titration 67.037 838.040 487.347 Amount Amiodarone 300 mg In 362.917 Dextrose 5% in Water 250 ml @ 0.5 MG/MIN 25 mls/hr IV .Q10H [facility] Rx#: [id number] Dexmedetomidine/0.9% NaCl 67.037 36.290 (Pmx) 400 mcg In Empty Bag 1 bag @ Titrate IV . Q0M [facility] Rx#:[id number] Diltiazem 125 mg In 9.625 88.833 Sodium Chloride 0.9% 100 ml @ 7.5 MG/HR 7.5 mls/hr IV .[id number] [facility] Rx#: [id number] Norepinephrine 8 mg In 135.155 100.382 Sodium Chloride 0.9% 250 ml @ 0.05 MCG/KG/MIN 14. 967 mls/hr IV .[id number] [facility] Rx#:[id number] propofoL 1,000 mg In 294.053 298.132 Empty Bag 1 bag @ Titrate IV .Q0M [facility] Rx#: [id number] Oral 90 Blood Product 620 Rc As-1 Unit 310 [id number] Rc As-1 Unit 310 [id number] Output: Urine 30 15 30 Stool 2700 Other: Voiding Method Indwelling Catheter Indwelling Catheter Indwelling Catheter ABP, PAP, CO, CI - Last Documented Arterial Blood Pressure 105/57 - Labs CBC & Chem 7: 08/30/20 12:00 08/30/20 04:07 Labs: Abnormal Lab Results - Last 24 Hours (Table) 08/29/20 08/29/20 08/29/20 Range/Units 05:00 17:42 21:49 WBC 23.1 H (3.8-10.6) k/uL RBC 2.81 L (3.80-5.40) m/uL Hgb 7.9 L D (11.4-16.0) gm/dL Hct 23.8 L (34.0-46.0) % RDW 18.1 H (11.5-15.5) % Plt Count (150-450) k/uL Neutrophils # (1.3-7.7) k/uL Monocytes # (0-1.0) k/uL ABG O2 Saturation (94-97) % Chloride (98-107) mmol/L Carbon Dioxide (22-30) mmol/L BUN (7-17) mg/dL Creatinine (0.52-1.04) mg/dL Glucose (74-99) mg/dL POC Glucose (mg/dL) 128 H (75-99) mg/dL Calcium (8.4-10.2) mg/dL Crossmatch See Detail 08/29/20 08/30/20 08/30/20 Range/Units 23:50 03:55 04:07 WBC 23.9 H (3.8-10.6) k/uL RBC 2.82 L (3.80-5.40) m/uL Hgb 7.8 L (11.4-16.0) gm/dL Hct 24.2 L (34.0-46.0) % RDW 18.5 H (11.5-15.5) % Plt Count (150-450) k/uL Neutrophils # 17.6 H (1.3-7.7) k/uL Monocytes # 1.7 H (0-1.0) k/uL ABG O2 Saturation 98.1 H (94-97) % Chloride (98-107) mmol/L Carbon Dioxide (22-30) mmol/L BUN (7-17) mg/dL Creatinine (0.52-1.04) mg/dL Glucose (74-99) mg/dL POC Glucose (mg/dL) 117 H (75-99) mg/dL Calcium (8.4-10.2) mg/dL Crossmatch 08/30/20 08/30/20 08/30/20 Range/Units 04:07 05:43 12:00 WBC 28.2 H (3.8-10.6) k/uL RBC 2.79 L (3.80-5.40) m/uL Hgb 7.8 L (11.4-16.0) gm/dL Hct 24.2 L (34.0-46.0) % RDW 18.7 H (11.5-15.5) % Plt Count 498 H (150-450) k/uL Neutrophils # (1.3-7.7) k/uL Monocytes # (0-1.0) k/uL ABG O2 Saturation (94-97) % Chloride 111 H (98-107) mmol/L Carbon Dioxide 21 L (22-30) mmol/L BUN 76 H (7-17) mg/dL Creatinine 5.36 H (0.52-1.04) mg/dL Glucose 112 H (74-99) mg/dL POC Glucose (mg/dL) 120 H (75-99) mg/dL Calcium 8.3 L (8.4-10.2) mg/dL Crossmatch 08/30/20 Range/Units 12:00 WBC (3.8-10.6) k/uL RBC (3.80-5.40) m/uL Hgb (11.4-16.0) gm/dL Hct (34.0-46.0) % RDW (11.5-15.5) % Plt Count (150-450) k/uL Neutrophils # (1.3-7.7) k/uL Monocytes # (0-1.0) k/uL ABG O2 Saturation (94-97) % Chloride (98-107) mmol/L Carbon Dioxide (22-30) mmol/L BUN (7-17) mg/dL Creatinine (0.52-1.04) mg/dL Glucose (74-99) mg/dL POC Glucose (mg/dL) 123 H (75-99) mg/dL Calcium (8.4-10.2) mg/dL Crossmatch Assessment and Plan (1) Acute blood loss anemia Current Visit: Yes Status: Acute Code(s): D62 - ACUTE POSTHEMORRHAGIC ANEMIA SNOMED Code(s): 185686829 (2) Ventilator dependence Current Visit: Yes Status: Acute Code(s): Z99.11 - DEPENDENCE ON RESPIRATOR [VENTILATOR] STATUS SNOMED Code(s): 622158082 (3) Hypoxia Current Visit: Yes Status: Acute Code(s): R09.02 - HYPOXEMIA SNOMED Code(s): 881159092 (4) Morbid obesity Current Visit: Yes Status: Acute Code(s): E66.01 - MORBID (SEVERE) OBESITY DUE TO EXCESS CALORIES SNOMED Code(s): 750705479 (5) Pneumonia Current Visit: Yes Status: Acute Code(s): J18.9 - PNEUMONIA, UNSPECIFIED ORGANISM SNOMED Code(s): 685438054 (6) Sepsis Current Visit: Yes Status: Acute Code(s): A41.9 - SEPSIS, UNSPECIFIED ORGANISM SNOMED Code(s): 28073155 (7) Change in mental status Current Visit: No Status: Acute Code(s): R41.82 - ALTERED MENTAL STATUS, UNSPECIFIED SNOMED Code(s): 610511890 (8) Duodenal ulcer with hemorrhage Current Visit: Yes Status: Acute Code(s): K26.4 - CHRONIC OR UNSPECIFIED DUODENAL ULCER WITH HEMORRHAGE SNOMED Code(s): 39329125
[2020-08-30 17:27] LABS: Glucose,Whole Blood 137 mg/dL (75-99)
[2020-08-30 18:23] LABS: Glucose,Whole Blood 132 mg/dL (75-99)
[2020-08-30] MEDS: ATORVASTATIN 80 MG TAB PO SCH (20:03)
--- NOTE | 2020-08-30 22:24 | P.PN ---
Subjective Progress Note Date: 08/27/20 Principal diagnosis: Acute hypoxic respiratory failure requiring mechanical ventilation secondary to pneumonia Acute hypoxic/hypercapnic respiratory failure secondary to left lower lobe pneumonia with sepsis 55-year-old female patient was morbid obesity as well as multiple comorbid conditions who was admitted to the hospital with acute hypoxic respiratory failure secondary to pneumonia and she was intubated and placed on mechanical ventilation. Cardiology consulted to see the patient for further evaluation off tachycardia episode consistent with atrial fibrillation. The patient was seen this morning. She continues to be intubated on mechanical ventilation. Hemodynamically she is a stable and not requiring any vasopressors. She has been maintaining normal sinus mechanism. She is on amiodarone by mouth. Also she is on heparin IV. We will consider oral anticoag ulation was noted that the patient is not in process of having any further surgical procedure. Otherwise we will continue the current medical regimen. Please note that the echocardiogram revealed cardiomyopathy. Also the patient has been dialysis every day. 08/22/2020 Patient is seen and evaluated at bedside in ICU; patient remains on mechanical ventilation; remains sedated with propofol; continues to be hemodialyzed daily; intensive care and nephrology on board and managing ventilator and hemodialysis 08/23/2020 Patient is seen and evaluated in ICU; remains intubated; patient remains in and out of atrial fibrillation; cardiology is following and recommending to continue amiodarone and addition of metoprolol; heparin has been discontinued because of nosebleed; cardiology recommending to start small dose of oral anticoagulation; echocardiogram reveals EF of 35%; nephrology on board for dialysis 08/24/2020 Patient was admitted to the hospital on 08/16/2020 due to sepsis secondary to acute left lower lobe pneumonia. Currently patient is on mechanical ventilator and is intubated. Chest x-ray showed pulmonary edema and cardiomegaly. Increased interstitial infiltrates bilaterally in addition to her left lower lobe airspace disease. Patient developed acute kidney injury currently requiring hemodialysis. Patient is on c antibiotics in the form of Unasyn and anidulafungal. Patient is on amiodarone drip due to atrial fibrillation and rate is controlled with metoprolol. Anticoagulation has been changed from heparin drip to Eliquis. On tube feedings via NG tube. Patient is undergoing hemodialysis today. Laboratory data showed WBC count of 9.2, hemoglobin 9.0 and platelets 366 Sodium 129, potassium 3.9, chloride 97, BUN 52 and creatinine 4.12 and phosphorus 10.8 and calcium 7.1 Pulmonary and nephrology is on board. 08/25/2020 Patient remains on mechanical ventilation. Continued on antibiotics and antifungals. Tolerating tube feeding. Patient underwent hemodialysis yesterday. Chest x-ray showed diffuse pleural-parenchymal changes are stable could be on the basis of diffuse pneumonia pulmonary edema correlate clinically. ARDS in the differential diagnosis. Patient has been afebrile. Amiodarone changed to by mouth. Laboratory test showed WBC 22.2 and hemoglobin 8.9 Sodium 132 potassium 4.7 BUN 45 and creatinine 3.26 and phosphorus 9.8 08/26/2020 Patient is mechanical ventilator with assist control and is also sedated. Currently on 50% FiO2 Chest x-ray showed no evident complication status post bronchoscopy. Near complete opacification of left hemithorax., Which is likely secondary to mucous plug. Patient underwent bedside bronchoscopy and copious amounts of mucous plugs were aspirated and cultures were sent. Patient will be continued on Unas yn and anidulafungin. Laboratory test showed WBC improving to 17.5, hemoglobin 7.8 and platelets 383 BUN 32 and creatinine 3.12 blood sugar is controlled. 08/27/2020 Patient is on mechanical ventilator. Chest x-ray showed interstitial infiltrates secondary to fluid overload/CHF. Atelectasis that was related to mucous plug has been recovered. Patient has been afebrile. Undergoing hemodialysis today. Patient is receiving hemodialysis on daily basis currently. Continue on tube feedings and is being monitored closely. Patient remains on antibiotics in the form of Unasyn. Laboratory data showed sodium 140, bicarb is 23 and BUN 32 and creatinine 3.57. WBC 19.6 and hemoglobin 7.6. Nephrology pulmonary and ID is following. Current medications reviewed. Objective - Vital Signs Vital signs: Vital Signs Temp 98.1 F 08/27/20 16:00 Pulse 85 08/27/20 16:21 Resp 26 H 08/27/20 16:00 BP 138/56 08/27/20 12:27 Pulse Ox 96 08/27/20 16:00 Intake & Output 08/26/20 08/27/20 08/27/20 18:59 06:59 18:59 Intake Total 756.363 797.494 91.024 Output Total 3535 15 3505 Balance -2778.637 782.494 -3413.976 Weight 158.2 kg 157.4 kg Intake: IV 120 153 13 0.9 120 120 10 Pressure Bag 33 3 Intake, IV Titration 138.363 44.494 42.024 Amount Dexmedetomidine/0.9% NaCl 138.363 (Pmx) 400 mcg In Empty Bag 1 bag @ Titrate IV . Q0M [facility] Rx#:[id number] Dexmedetomidine/0.9% NaCl 44.494 42.024 (Pmx) 400 mcg In Empty Bag 1 bag @ Titrate IV . Q0M [facility] Rx#:[id number] Tube Feeding 468 540 36 Other 30 60 Output: Urine 35 15 5 Hemodialysis 3500 3500 Other: Voiding Method Indwelling Catheter Indwelling Catheter Indwelling Catheter ABP, PAP, CO, CI - Last Documented Arterial Blood Pressure 152/83 - Exam PHYSICAL EXAMINATION: Patient is On mechanical ventilator and is sedated... HEENT: Normocephalic. Neck is supple. Pupils reactive. Nostrils clear. Oral cavity is moist. Ears reveal no drainage. Neck reveals no JVD, carotid bruits, or thyromegaly. CHEST EXAMINATION: Trachea is central. Symmetrical expansion. Bibasilar diminished air entry. No wheezing or rhonchi.. CARDIAC: Normal S1, S2 with no gallops. No murmurs ABDOMEN: Soft. Bowel sounds presentl. No organomegaly. No abdominal bruits. Extremities: reveal no edema. No clubbing or cyanosis Neurologically Patient is sedated and intubated. Skin: No rash or skin lesions. Psychiatric: Could not be assessed at this time. Musculoskeletal: No joint swelling or deformity. - Labs CBC & Chem 7: 08/30/20 12:00 08/30/20 04:07 Labs: Abnormal Lab Results - Last 24 Hours (Table) 08/26/20 08/27/20 08/27/20 Range/Units 17:43 00:09 03:45 WBC 19.6 H (3.8-10.6) k/uL RBC 2.74 L (3.80-5.40) m/uL Hgb 7.5 L (11.4-16.0) gm/dL Hct 22.4 L (34.0-46.0) % RDW 16.8 H (11.5-15.5) % ABG pO2 (83-108) mmHg ABG Total CO2 (19-24) mmol/L ABG O2 Saturation (94-97) % BUN (7-17) mg/dL Creatinine (0.52-1.04) mg/dL Glucose (74-99) mg/dL POC Glucose (mg/dL) 113 H 116 H (75-99) mg/dL Calcium (8.4-10.2) mg/dL Phosphorus (2.5-4.5) mg/dL AST (14-36) U/L Alkaline Phosphatase (38-126) U/L Albumin (3.5-5.0) g/dL 08/27/20 08/27/20 08/27/20 Range/Units 03:45 05:20 06:32 WBC (3.8-10.6) k/uL RBC (3.80-5.40) m/uL Hgb (11.4-16.0) gm/dL Hct (34.0-46.0) % RDW (11.5-15.5) % ABG pO2 154 H (83-108) mmHg ABG Total CO2 26 H (19-24) mmol/L ABG O2 Saturation 99.9 H (94-97) % BUN 32 H (7-17) mg/dL Creatinine 3.57 H (0.52-1.04) mg/dL Glucose 118 H (74-99) mg/dL POC Glucose (mg/dL) 130 H (75-99) mg/dL Calcium 8.1 L (8.4-10.2) mg/dL Phosphorus 7.7 H (2.5-4.5) mg/dL AST 95 H (14-36) U/L Alkaline Phosphatase 230 H (38-126) U/L Albumin 2.5 L (3.5-5.0) g/dL 08/27/20 Range/Units 12:00 WBC (3.8-10.6) k/uL RBC (3.80-5.40) m/uL Hgb (11.4-16.0) gm/dL Hct (34.0-46.0) % RDW (11.5-15.5) % ABG pO2 (83-108) mmHg ABG Total CO2 (19-24) mmol/L ABG O2 Saturation (94-97) % BUN (7-17) mg/dL Creatinine (0.52-1.04) mg/dL Glucose (74-99) mg/dL POC Glucose (mg/dL) 108 H (75-99) mg/dL Calcium (8.4-10.2) mg/dL Phosphorus (2.5-4.5) mg/dL AST (14-36) U/L Alkaline Phosphatase (38-126) U/L Albumin (3.5-5.0) g/dL Microbiology - Last 24 Hours (Table) 08/26/20 09:00 Gram Stain - Preliminary Bronchoalviolar Lavage - Left Bronchial Washings Culture - Preliminary 08/26/20 09:00 Acid Fast Bacilli Smear - Final Bronchoalviolar Lavage - Left Acid Fast Bacilli Culture - Preliminary 08/26/20 09:00 Fungal Culture - Preliminary Bronchoalviolar Lavage - Left Assessment and Plan Assessment: 1. Acute hypoxic respiratory failure requiring mechanical ventilation secondary to pneumonia. patient remains intubated and mechanically ventilated. 2. Sepsis, secondary to Streptococcal pneumonia. Status post bronchoscopy. 3. Paroxysmal atrial fibrillation with RVR 4. Cardiomyopathy, unknown if ischemic or nonischemic, EF 30-35% 5. Abnormal troponins, possible NSTEMI, may be secondary to hypoxia, sepsis, and/or afib with RVR, however can not rule out underlying coronary artery disease 6. Severe pulmonary hypertension 7. Acute kidney injury Secondary to ATN currently requiring hemodialysis 8. Hypotension requiring vasopressor support 9. History of asthma 10. Hypothyroidism 11. Morbid obesity with a BMI 56.3 PLAN: Patient is being continued on mechanical ventilation. s/p bedside bronchoscopy and aspiration of mucus plugs. Continue with antibiotics in the form of unasyn. and hemodialysis as per nephrology. Anticoagulation is being changed to Eliquis and also on amiodarone. Prognosis guarded at this time. Further recommendations based on the clinical course. Time with Patient: Greater than 30
--- NOTE | 2020-08-30 22:47 | P.PN ---
Subjective Progress Note Date: 08/28/20 Principal diagnosis: Acute hypoxic respiratory failure requiring mechanical ventilation secondary to pneumonia Acute hypoxic/hypercapnic respiratory failure secondary to left lower lobe pneumonia with sepsis 55-year-old female patient was morbid obesity as well as multiple comorbid conditions who was admitted to the hospital with acute hypoxic respiratory failure secondary to pneumonia and she was intubated and placed on mechanical ventilation. Cardiology consulted to see the patient for further evaluation off tachycardia episode consistent with atrial fibrillation. The patient was seen this morning. She continues to be intubated on mechanical ventilation. Hemodynamically she is a stable and not requiring any vasopressors. She has been maintaining normal sinus mechanism. She is on amiodarone by mouth. Also she is on heparin IV. We will consider oral anticoag ulation was noted that the patient is not in process of having any further surgical procedure. Otherwise we will continue the current medical regimen. Please note that the echocardiogram revealed cardiomyopathy. Also the patient has been dialysis every day. 08/22/2020 Patient is seen and evaluated at bedside in ICU; patient remains on mechanical ventilation; remains sedated with propofol; continues to be hemodialyzed daily; intensive care and nephrology on board and managing ventilator and hemodialysis 08/23/2020 Patient is seen and evaluated in ICU; remains intubated; patient remains in and out of atrial fibrillation; cardiology is following and recommending to continue amiodarone and addition of metoprolol; heparin has been discontinued because of nosebleed; cardiology recommending to start small dose of oral anticoagulation; echocardiogram reveals EF of 35%; nephrology on board for dialysis 08/24/2020 Patient was admitted to the hospital on 08/16/2020 due to sepsis secondary to acute left lower lobe pneumonia. Currently patient is on mechanical ventilator and is intubated. Chest x-ray showed pulmonary edema and cardiomegaly. Increased interstitial infiltrates bilaterally in addition to her left lower lobe airspace disease. Patient developed acute kidney injury currently requiring hemodialysis. Patient is on c antibiotics in the form of Unasyn and anidulafungal. Patient is on amiodarone drip due to atrial fibrillation and rate is controlled with metoprolol. Anticoagulation has been changed from heparin drip to Eliquis. On tube feedings via NG tube. Patient is undergoing hemodialysis today. Laboratory data showed WBC count of 9.2, hemoglobin 9.0 and platelets 366 Sodium 129, potassium 3.9, chloride 97, BUN 52 and creatinine 4.12 and phosphorus 10.8 and calcium 7.1 Pulmonary and nephrology is on board. 08/25/2020 Patient remains on mechanical ventilation. Continued on antibiotics and antifungals. Tolerating tube feeding. Patient underwent hemodialysis yesterday. Chest x-ray showed diffuse pleural-parenchymal changes are stable could be on the basis of diffuse pneumonia pulmonary edema correlate clinically. ARDS in the differential diagnosis. Patient has been afebrile. Amiodarone changed to by mouth. Laboratory test showed WBC 22.2 and hemoglobin 8.9 Sodium 132 potassium 4.7 BUN 45 and creatinine 3.26 and phosphorus 9.8 08/26/2020 Patient is mechanical ventilator with assist control and is also sedated. Currently on 50% FiO2 Chest x-ray showed no evident complication status post bronchoscopy. Near complete opacification of left hemithorax., Which is likely secondary to mucous plug. Patient underwent bedside bronchoscopy and copious amounts of mucous plugs were aspirated and cultures were sent. Patient will be continued on Unas yn and anidulafungin. Laboratory test showed WBC improving to 17.5, hemoglobin 7.8 and platelets 383 BUN 32 and creatinine 3.12 blood sugar is controlled. 08/27/2020 Patient is on mechanical ventilator. Chest x-ray showed interstitial infiltrates secondary to fluid overload/CHF. Atelectasis that was related to mucous plug has been recovered. Patient has been afebrile. Undergoing hemodialysis today. Patient is receiving hemodialysis on daily basis currently. Continue on tube feedings and is being monitored closely. Patient remains on antibiotics in the form of Unasyn. Laboratory data showed sodium 140, bicarb is 23 and BUN 32 and creatinine 3.57. WBC 19.6 and hemoglobin 7.6. Nephrology pulmonary and ID is following. 08/28/2020 Patient remains on mechanical ventilator. Still having recurrent collapse of the left lung and chest x-ray today showed complete opacification of the left lung. Emergent bronchoscopy was done at bedside and removal of mucous plugs. Patient is also undergoing hemodialysis. Continued on antibiotics and tube feedings. Remains afebrile. Pulmonary and nephrology is on board. Current medications reviewed. Objective - Vital Signs Vital signs: Vital Signs Temp 98.7 F 08/28/20 12:00 Pulse 82 08/28/20 14:00 Resp 20 08/28/20 14:00 BP 138/56 08/27/20 12:27 Pulse Ox 96 08/28/20 14:00 Intake & Output 08/27/20 08/28/20 08/28/20 18:59 06:59 18:59 Intake Total 91.024 969 326 Output Total 3505 50 15 Balance -3413.976 919 311 Weight 157.1 kg 157.1 kg Intake: IV 13 243 104 0.9 10 110 80 Ampicillin-Sulbactam 3 gm 100 In Sodium Chloride 0.9% 100 ml @ 200 mls/hr IVPB Q12H [facility] Rx#:[id number] Pressure Bag 3 33 24 Intake, IV Titration 42.024 100 Amount Anidulafungin 100 mg In 100 Sodium Chloride 0.9% 100 ml @ 84 mls/hr IVPB DAILY [facility] Rx#:[id number] Dexmedetomidine/0.9% NaCl 42.024 (Pmx) 400 mcg In Empty Bag 1 bag @ Titrate IV . Q0M [facility] Rx#:[id number] Tube Feeding 36 576 122 Other 150 Output: Urine 5 50 15 Hemodialysis 3500 Other: Voiding Method Indwelling Catheter Indwelling Catheter # Bowel Movements 1 1 ABP, PAP, CO, CI - Last Documented Arterial Blood Pressure 103/51 - Exam PHYSICAL EXAMINATION: Patient is On mechanical ventilator and is sedated... HEENT: Normocephalic. Neck is supple. Pupils reactive. Nostrils clear. Oral cavity is moist. Ears reveal no drainage. Neck reveals no JVD, carotid bruits, or thyromegaly. CHEST EXAMINATION: Trachea is central. Symmetrical expansion. Bibasilar diminished air entry. No wheezing or rhonchi.. CARDIAC: Normal S1, S2 with no gallops. No murmurs ABDOMEN: Soft. Bowel sounds presentl. No organomegaly. No abdominal bruits. Extremities: reveal no edema. No clubbing or cyanosis Neurologically Patient is sedated and intubated. Skin: No rash or skin lesions. Psychiatric: Could not be assessed at this time. Musculoskeletal: No joint swelling or deformity. - Labs CBC & Chem 7: 08/30/20 12:00 08/30/20 04:07 Labs: Abnormal Lab Results - Last 24 Hours (Table) 08/28/20 08/28/20 08/28/20 Range/Units 01:08 04:50 04:50 WBC 19.8 H (3.8-10.6) k/uL RBC 2.85 L (3.80-5.40) m/uL Hgb 7.6 L (11.4-16.0) gm/dL Hct 23.3 L (34.0-46.0) % RDW 17.2 H (11.5-15.5) % Plt Count 463 H (150-450) k/uL ABG Total CO2 (19-24) mmol/L ABG O2 Saturation (94-97) % Chloride 108 H (98-107) mmol/L BUN 43 H (7-17) mg/dL Creatinine 4.17 H (0.52-1.04) mg/dL Glucose 124 H (74-99) mg/dL POC Glucose (mg/dL) 145 H (75-99) mg/dL Calcium 8.3 L (8.4-10.2) mg/dL AST 137 H (14-36) U/L Alkaline Phosphatase 253 H (38-126) U/L Albumin 2.6 L (3.5-5.0) g/dL 08/28/20 08/28/20 08/28/20 Range/Units 05:50 08:03 12:38 WBC (3.8-10.6) k/uL RBC (3.80-5.40) m/uL Hgb (11.4-16.0) gm/dL Hct (34.0-46.0) % RDW (11.5-15.5) % Plt Count (150-450) k/uL ABG Total CO2 27 H (19-24) mmol/L ABG O2 Saturation 97.6 H (94-97) % Chloride (98-107) mmol/L BUN (7-17) mg/dL Creatinine (0.52-1.04) mg/dL Glucose (74-99) mg/dL POC Glucose (mg/dL) 155 H 137 H (75-99) mg/dL Calcium (8.4-10.2) mg/dL AST (14-36) U/L Alkaline Phosphatase (38-126) U/L Albumin (3.5-5.0) g/dL Microbiology - Last 24 Hours (Table) 08/26/20 09:00 Gram Stain - Final Bronchoalviolar Lavage - Left Bronchial Washings Culture - Final Assessment and Plan Assessment: 1. Acute hypoxic respiratory failure requiring mechanical ventilation secondary to pneumonia. patient remains intubated and mechanically ventilated. 2. Sepsis, secondary to Streptococcal pneumonia. Status post bronchoscopy. 3. Paroxysmal atrial fibrillation with RVR 4. Cardiomyopathy, unknown if ischemic or nonischemic, EF 30-35% 5. Abnormal troponins, possible NSTEMI, may be secondary to hypoxia, sepsis, and/or afib with RVR, however can not rule out underlying coronary artery disease 6. Severe pulmonary hypertension 7. Acute kidney injury Secondary to ATN currently requiring hemodialysis 8. Hypotension requiring vasopressor support 9. History of asthma 10. Hypothyroidism 11. Morbid obesity with a BMI 56.3 PLAN: Patient is being continued on mechanical ventilation. s/p bedside bronchoscopy and aspiration of mucus plugs. Continue with antibiotics in the form of unasyn. and hemodialysis as per nephrology. Anticoagulation is being changed to Eliquis and also on amiodarone. Prognosis guarded at this time. Further recommendations based on the clinical course. Time with Patient: Greater than 30
--- NOTE | 2020-08-30 22:51 | P.PN ---
Subjective Progress Note Date: 08/29/20 Principal diagnosis: Acute hypoxic respiratory failure requiring mechanical ventilation secondary to pneumonia Acute hypoxic/hypercapnic respiratory failure secondary to left lower lobe pneumonia with sepsis 55-year-old female patient was morbid obesity as well as multiple comorbid conditions who was admitted to the hospital with acute hypoxic respiratory failure secondary to pneumonia and she was intubated and placed on mechanical ventilation. Cardiology consulted to see the patient for further evaluation off tachycardia episode consistent with atrial fibrillation. The patient was seen this morning. She continues to be intubated on mechanical ventilation. Hemodynamically she is a stable and not requiring any vasopressors. She has been maintaining normal sinus mechanism. She is on amiodarone by mouth. Also she is on heparin IV. We will consider oral anticoag ulation was noted that the patient is not in process of having any further surgical procedure. Otherwise we will continue the current medical regimen. Please note that the echocardiogram revealed cardiomyopathy. Also the patient has been dialysis every day. 08/22/2020 Patient is seen and evaluated at bedside in ICU; patient remains on mechanical ventilation; remains sedated with propofol; continues to be hemodialyzed daily; intensive care and nephrology on board and managing ventilator and hemodialysis 08/23/2020 Patient is seen and evaluated in ICU; remains intubated; patient remains in and out of atrial fibrillation; cardiology is following and recommending to continue amiodarone and addition of metoprolol; heparin has been discontinued because of nosebleed; cardiology recommending to start small dose of oral anticoagulation; echocardiogram reveals EF of 35%; nephrology on board for dialysis 08/24/2020 Patient was admitted to the hospital on 08/16/2020 due to sepsis secondary to acute left lower lobe pneumonia. Currently patient is on mechanical ventilator and is intubated. Chest x-ray showed pulmonary edema and cardiomegaly. Increased interstitial infiltrates bilaterally in addition to her left lower lobe airspace disease. Patient developed acute kidney injury currently requiring hemodialysis. Patient is on c antibiotics in the form of Unasyn and anidulafungal. Patient is on amiodarone drip due to atrial fibrillation and rate is controlled with metoprolol. Anticoagulation has been changed from heparin drip to Eliquis. On tube feedings via NG tube. Patient is undergoing hemodialysis today. Laboratory data showed WBC count of 9.2, hemoglobin 9.0 and platelets 366 Sodium 129, potassium 3.9, chloride 97, BUN 52 and creatinine 4.12 and phosphorus 10.8 and calcium 7.1 Pulmonary and nephrology is on board. 08/25/2020 Patient remains on mechanical ventilation. Continued on antibiotics and antifungals. Tolerating tube feeding. Patient underwent hemodialysis yesterday. Chest x-ray showed diffuse pleural-parenchymal changes are stable could be on the basis of diffuse pneumonia pulmonary edema correlate clinically. ARDS in the differential diagnosis. Patient has been afebrile. Amiodarone changed to by mouth. Laboratory test showed WBC 22.2 and hemoglobin 8.9 Sodium 132 potassium 4.7 BUN 45 and creatinine 3.26 and phosphorus 9.8 08/26/2020 Patient is mechanical ventilator with assist control and is also sedated. Currently on 50% FiO2 Chest x-ray showed no evident complication status post bronchoscopy. Near complete opacification of left hemithorax., Which is likely secondary to mucous plug. Patient underwent bedside bronchoscopy and copious amounts of mucous plugs were aspirated and cultures were sent. Patient will be continued on Unas yn and anidulafungin. Laboratory test showed WBC improving to 17.5, hemoglobin 7.8 and platelets 383 BUN 32 and creatinine 3.12 blood sugar is controlled. 08/27/2020 Patient is on mechanical ventilator. Chest x-ray showed interstitial infiltrates secondary to fluid overload/CHF. Atelectasis that was related to mucous plug has been recovered. Patient has been afebrile. Undergoing hemodialysis today. Patient is receiving hemodialysis on daily basis currently. Continue on tube feedings and is being monitored closely. Patient remains on antibiotics in the form of Unasyn. Laboratory data showed sodium 140, bicarb is 23 and BUN 32 and creatinine 3.57. WBC 19.6 and hemoglobin 7.6. Nephrology pulmonary and ID is following. 08/28/2020 Patient remains on mechanical ventilator. Still having recurrent collapse of the left lung and chest x-ray today showed complete opacification of the left lung. Emergent bronchoscopy was done at bedside and removal of mucous plugs. Patient is also undergoing hemodialysis. Continued on antibiotics and tube feedings. Remains afebrile. Pulmonary and nephrology is on board. 08/29/2020 Patient remains mechanical ventilation. Patient is off sedation. Patient developed upper GI bleed and also melanotic stool and hemoglobin dropped to 6.0 this morning. Status post 2 units of PRBC. Patient underwent EGD showed proximal gastric ulcer just distal to the GE junction. Will be lesser curvature with active bleeding status post Endo Clip placement. Small hiatal hernia. Patient is not on Eliquis and aspirin is on hold. WBC count 16.4 and platelet 445. Current medications reviewed. Objective - Vital Signs Vital signs: Vital Signs Temp 101.8 F H 08/29/20 20:00 Pulse 83 08/29/20 22:00 Resp 26 H 08/29/20 22:00 BP 104/64 08/29/20 18:59 Pulse Ox 97 08/29/20 22:00 Intake & Output 08/29/20 08/29/20 08/30/20 06:59 18:59 06:59 Intake Total 437 1111.037 134.976 Output Total 20 30 905 Balance 417 1081.037 -770.024 Weight 154.7 kg Intake: IV 143 334 72 0.9 110 120 60 Anidulafungin 100 mg In 100 Sodium Chloride 0.9% 100 ml @ 84 mls/hr IVPB DAILY [facility] Rx#:[id number] Desmopressin Acetate 18 50 mcg In Sodium Chloride 0. 9% 50 ml @ 200 mls/hr IVPB [facility] Rx#: [id number] Pressure Bag 33 64 12 Intake, IV Titration 67.037 62.976 Amount Dexmedetomidine/0.9% NaCl 67.037 36.290 (Pmx) 400 mcg In Empty Bag 1 bag @ Titrate IV . Q0M [facility] Rx#:[id number] propofoL 1,000 mg In 26.686 Empty Bag 1 bag @ Titrate IV .Q0M [facility] Rx#: [id number] Oral 90 Tube Feeding 264 Blood Product 620 As-1 Unit 310 [id number] As-1 Unit 310 [id number] Other 30 Output: Urine 20 30 5 Stool 900 Other: Voiding Method Indwelling Catheter Indwelling Catheter # Bowel Movements 1 ABP, PAP, CO, CI - Last Documented Arterial Blood Pressure 119/70 - Exam PHYSICAL EXAMINATION: Patient is On mechanical ventilator and is sedated... HEENT: Normocephalic. Neck is supple. Pupils reactive. Nostrils clear. Oral cavity is moist. Ears reveal no drainage. Neck reveals no JVD, carotid bruits, or thyromegaly. CHEST EXAMINATION: Trachea is central. Symmetrical expansion. Bibasilar dim inished air entry. No wheezing or rhonchi.. CARDIAC: Normal S1, S2 with no gallops. No murmurs ABDOMEN: Soft. Bowel sounds presentl. No organomegaly. No abdominal bruits. Extremities: reveal no edema. No clubbing or cyanosis Neurologically Patient is sedated and intubated. Skin: No rash or skin lesions. Psychiatric: Could not be assessed at this time. Musculoskeletal: No joint swelling or deformity. - Labs CBC & Chem 7: 08/30/20 12:00 08/30/20 04:07 Labs: Abnormal Lab Results - Last 24 Hours (Table) 08/28/20 08/28/20 08/29/20 Range/Units 23:24 23:46 04:15 WBC 16.4 H (3.8-10.6) k/uL RBC 2.35 L (3.80-5.40) m/uL Hgb 6.0 L* D (11.4-16.0) gm/dL Hct 19.5 L* (34.0-46.0) % MCHC 30.6 L (31.0-37.0) g/dL RDW 18.0 H (11.5-15.5) % Neutrophils # 12.6 H (1.3-7.7) k/uL Monocytes # 1.1 H (0-1.0) k/uL ABG pO2 (83-108) mmHg ABG HCO3 (21-25) mmol/L ABG Total CO2 (19-24) mmol/L Chloride (98-107) mmol/L BUN (7-17) mg/dL Creatinine (0.52-1.04) mg/dL Glucose (74-99) mg/dL POC Glucose (mg/dL) 138 H 138 H (75-99) mg/dL Calcium (8.4-10.2) mg/dL Stool Occult Blood (Negative) C. difficile (EIA) Intrp (Negative) Crossmatch 08/29/20 08/29/20 08/29/20 Range/Units 04:15 04:35 04:47 WBC (3.8-10.6) k/uL RBC (3.80-5.40) m/uL Hgb (11.4-16.0) gm/dL Hct (34.0-46.0) % MCHC (31.0-37.0) g/dL RDW (11.5-15.5) % Neutrophils # (1.3-7.7) k/uL Monocytes # (0-1.0) k/uL ABG pO2 (83-108) mmHg ABG HCO3 (21-25) mmol/L ABG Total CO2 (19-24) mmol/L Chloride 109 H (98-107) mmol/L BUN 52 H (7-17) mg/dL Creatinine 3.97 H (0.52-1.04) mg/dL Glucose 120 H (74-99) mg/dL POC Glucose (mg/dL) (75-99) mg/dL Calcium 7.9 L (8.4-10.2) mg/dL Stool Occult Blood Positive H (Negative) C. difficile (EIA) Intrp Positive A (Negative) Crossmatch 08/29/20 08/29/20 08/29/20 Range/Units 05:00 05:12 05:13 WBC (3.8-10.6) k/uL RBC (3.80-5.40) m/uL Hgb (11.4-16.0) gm/dL Hct (34.0-46.0) % MCHC (31.0-37.0) g/dL RDW (11.5-15.5) % Neutrophils # (1.3-7.7) k/uL Monocytes # (0-1.0) k/uL ABG pO2 75 L (83-108) mmHg ABG HCO3 26 H (21-25) mmol/L ABG Total CO2 27 H (19-24) mmol/L Chloride (98-107) mmol/L BUN (7-17) mg/dL Creatinine (0.52-1.04) mg/dL Glucose (74-99) mg/dL POC Glucose (mg/dL) 130 H (75-99) mg/dL Calcium (8.4-10.2) mg/dL Stool Occult Blood (Negative) C. difficile (EIA) Intrp (Negative) Crossmatch See Detail 08/29/20 08/29/20 08/29/20 Range/Units 11:42 17:42 21:49 WBC 23.1 H (3.8-10.6) k/uL RBC 2.81 L (3.80-5.40) m/uL Hgb 7.9 L D (11.4-16.0) gm/dL Hct 23.8 L (34.0-46.0) % MCHC (31.0-37.0) g/dL RDW 18.1 H (11.5-15.5) % Neutrophils # (1.3-7.7) k/uL Monocytes # (0-1.0) k/uL ABG pO2 (83-108) mmHg ABG HCO3 (21-25) mmol/L ABG Total CO2 (19-24) mmol/L Chloride (98-107) mmol/L BUN (7-17) mg/dL Creatinine (0.52-1.04) mg/dL Glucose (74-99) mg/dL POC Glucose (mg/dL) 128 H 128 H (75-99) mg/dL Calcium (8.4-10.2) mg/dL Stool Occult Blood (Negative) C. difficile (EIA) Intrp (Negative) Crossmatch Assessment and Plan Assessment: 1. Acute hypoxic respiratory failure requiring mechanical ventilation secondary to pneumonia. patient remains intubated and mechanically ventilated. 2. Sepsis, secondary to Streptococcal pneumonia. Status post bronchoscopy. 2. Acute GI bleed status post EGD showing gastric ulcer. 3. Paroxysmal atrial fibrillation with RVR 4. Cardiomyopathy, unknown if ischemic or nonischemic, EF 30-35% 5. Abnormal troponins, possible NSTEMI, may be secondary to hypoxia, sepsis, and/or afib with RVR, however can not rule out underlying coronary artery dis ease 6. Severe pulmonary hypertension 7. Acute kidney injury Secondary to ATN currently requiring hemodialysis 8. Hypotension requiring vasopressor support 9. History of asthma 10. Hypothyroidism 11. Morbid obesity with a BMI 56.3 PLAN: Patient is being continued on mechanical ventilation. s/p bedside bronchoscopy and aspiration of mucus plugs. Patient is having recurrent mucous plug formation. Continue PPI and monitor H&H. Continue with antibiotics in the form of unasyn. and hemodialysis as per nephrology. Anticoagulation is being changed to Eliquis and also on amiodarone. Currently anticoagulation is on hold. Prognosis guarded at this time. Further recommendations based on the clinical course. Time with Patient: Greater than 30
--- NOTE | 2020-08-30 22:54 | P.PN ---
Subjective Progress Note Date: 08/30/20 Principal diagnosis: Acute hypoxic respiratory failure requiring mechanical ventilation secondary to pneumonia Acute hypoxic/hypercapnic respiratory failure secondary to left lower lobe pneumonia with sepsis 55-year-old female patient was morbid obesity as well as multiple comorbid conditions who was admitted to the hospital with acute hypoxic respiratory failure secondary to pneumonia and she was intubated and placed on mechanical ventilation. Cardiology consulted to see the patient for further evaluation off tachycardia episode consistent with atrial fibrillation. The patient was seen this morning. She continues to be intubated on mechanical ventilation. Hemodynamically she is a stable and not requiring any vasopressors. She has been maintaining normal sinus mechanism. She is on amiodarone by mouth. Also she is on heparin IV. We will consider oral anticoag ulation was noted that the patient is not in process of having any further surgical procedure. Otherwise we will continue the current medical regimen. Please note that the echocardiogram revealed cardiomyopathy. Also the patient has been dialysis every day. 08/22/2020 Patient is seen and evaluated at bedside in ICU; patient remains on mechanical ventilation; remains sedated with propofol; continues to be hemodialyzed daily; intensive care and nephrology on board and managing ventilator and hemodialysis 08/23/2020 Patient is seen and evaluated in ICU; remains intubated; patient remains in and out of atrial fibrillation; cardiology is following and recommending to continue amiodarone and addition of metoprolol; heparin has been discontinued because of nosebleed; cardiology recommending to start small dose of oral anticoagulation; echocardiogram reveals EF of 35%; nephrology on board for dialysis 08/24/2020 Patient was admitted to the hospital on 08/16/2020 due to sepsis secondary to acute left lower lobe pneumonia. Currently patient is on mechanical ventilator and is intubated. Chest x-ray showed pulmonary edema and cardiomegaly. Increased interstitial infiltrates bilaterally in addition to her left lower lobe airspace disease. Patient developed acute kidney injury currently requiring hemodialysis. Patient is on c antibiotics in the form of Unasyn and anidulafungal. Patient is on amiodarone drip due to atrial fibrillation and rate is controlled with metoprolol. Anticoagulation has been changed from heparin drip to Eliquis. On tube feedings via NG tube. Patient is undergoing hemodialysis today. Laboratory data showed WBC count of 9.2, hemoglobin 9.0 and platelets 366 Sodium 129, potassium 3.9, chloride 97, BUN 52 and creatinine 4.12 and phosphorus 10.8 and calcium 7.1 Pulmonary and nephrology is on board. 08/25/2020 Patient remains on mechanical ventilation. Continued on antibiotics and antifungals. Tolerating tube feeding. Patient underwent hemodialysis yesterday. Chest x-ray showed diffuse pleural-parenchymal changes are stable could be on the basis of diffuse pneumonia pulmonary edema correlate clinically. ARDS in the differential diagnosis. Patient has been afebrile. Amiodarone changed to by mouth. Laboratory test showed WBC 22.2 and hemoglobin 8.9 Sodium 132 potassium 4.7 BUN 45 and creatinine 3.26 and phosphorus 9.8 08/26/2020 Patient is mechanical ventilator with assist control and is also sedated. Currently on 50% FiO2 Chest x-ray showed no evident complication status post bronchoscopy. Near complete opacification of left hemithorax., Which is likely secondary to mucous plug. Patient underwent bedside bronchoscopy and copious amounts of mucous plugs were aspirated and cultures were sent. Patient will be continued on Unas yn and anidulafungin. Laboratory test showed WBC improving to 17.5, hemoglobin 7.8 and platelets 383 BUN 32 and creatinine 3.12 blood sugar is controlled. 08/27/2020 Patient is on mechanical ventilator. Chest x-ray showed interstitial infiltrates secondary to fluid overload/CHF. Atelectasis that was related to mucous plug has been recovered. Patient has been afebrile. Undergoing hemodialysis today. Patient is receiving hemodialysis on daily basis currently. Continue on tube feedings and is being monitored closely. Patient remains on antibiotics in the form of Unasyn. Laboratory data showed sodium 140, bicarb is 23 and BUN 32 and creatinine 3.57. WBC 19.6 and hemoglobin 7.6. Nephrology pulmonary and ID is following. 08/28/2020 Patient remains on mechanical ventilator. Still having recurrent collapse of the left lung and chest x-ray today showed complete opacification of the left lung. Emergent bronchoscopy was done at bedside and removal of mucous plugs. Patient is also undergoing hemodialysis. Continued on antibiotics and tube feedings. Remains afebrile. Pulmonary and nephrology is on board. 08/29/2020 Patient remains mechanical ventilation. Patient is off sedation. Patient developed upper GI bleed and also melanotic stool and hemoglobin dropped to 6.0 this morning. Status post 2 units of PRBC. Patient underwent EGD showed proximal gastric ulcer just distal to the GE junction. Will be lesser curvature with active bleeding status post Endo Clip placement. Small hiatal hernia. Patient is not on Eliquis and aspirin is on hold. WBC count 16.4 and platelet 445. 08/30/2020 Patient remained mechanical ventilator. Patient underwent bronchoscopy at bedside due to liver and left lower lobe atelectasis and mucous plugging with suctioning. Patient is status post EGD due to GI bleed. Currently hemoglobin is 7.8. Hemodialysis as per nephrology. Pulmonary is planning to go for tracheostomy and PEG tube placement and general surgery was consulted. Otherwise patient is antibiotics and tube feedings. Laboratory data showed WBC 23.9, hemoglobin 7.8, platelets 427 BUN 76 and creatinine 5.36. Sodium 143 and chloride 111 blood sugar is controlled. Current medications reviewed. Objective - Vital Signs Vital signs: Vital Signs Temp 98.9 F 08/30/20 16:00 Pulse 105 H 08/30/20 16:00 Resp 24 08/30/20 16:00 BP 104/64 08/29/20 18:59 Pulse Ox 98 08/30/20 16:00 Intake & Output 08/29/20 08/30/20 08/30/20 18:59 06:59 18:59 Intake Total 2696.328 5442.040 728.002 Output Total 30 2715 30 Balance 1081.037 -1620.960 698.002 Weight 150.1 kg Intake: IV 334 256 130 0.9 120 220 100 Anidulafungin 100 mg In 100 Sodium Chloride 0.9% 100 ml @ 84 mls/hr IVPB [facility]ILY [facility] Rx#:[id number] Desmopressin Acetate 18 50 mcg In Sodium Chloride 0. 9% 50 ml @ 200 mls/hr IVPB ONCE ONE Rx#: [id number] Pressure Bag 64 36 30 Intake, IV Titration 67.037 838.040 532.002 Amount Amiodarone 300 mg In 362.917 Dextrose 5% in Water 250 ml @ 0.5 MG/MIN 25 mls/hr IV .Q10H [facility] Rx#: [id number] Dexmedetomidine/0.9% NaCl 67.037 36.290 (Pmx) 400 mcg In Empty Bag 1 bag @ Titrate IV . Q0M [facility] Rx#:[id number] Diltiazem 125 mg In 9.625 88.833 Sodium Chloride 0.9% 100 ml @ 7.5 MG/HR 7.5 mls/hr IV .[id number] [facility] Rx#: [id number] Norepinephrine 8 mg In 135.155 100.382 Sodium Chloride 0.9% 250 ml @ 0.05 MCG/KG/MIN 14. 967 mls/hr IV .[id number] [facility] Rx#:[id number] propofoL 1,000 mg In 294.053 342.787 Empty Bag 1 bag @ Titrate IV .Q0M [facility] Rx#: [id number] Oral 90 Tube Feeding 36 Blood Product 620 Rc As-1 Unit 310 [id number] Rc As-1 Unit 310 [id number] Other 30 Output: Urine 30 15 30 Stool 2700 Other: Voiding Method Indwelling Catheter Indwelling Catheter Indwelling Catheter ABP, PAP, CO, CI - Last Documented Arterial Blood Pressure 97/58 - Exam PHYSICAL EXAMINATION: Patient is On mechanical ventilator and is sedated... HEENT: Normocephalic. Neck is supple. Pupils reactive. Nostrils clear. Oral cavity is moist. Ears reveal no drainage. Neck reveals no JVD, carotid bruits, or thyromegaly. CHEST EXAMINATION: Trachea is central. Symmetrical expansion. Bibasilar diminished air entry. No wheezing or rhonchi.. CARDIAC: Normal S1, S2 with no gallops. No murmurs ABDOMEN: Soft. Bowel sounds presentl. No organomegaly. No abdominal bruits. Extremities: reveal no edema. No clubbing or cyanosis Neurologically Patient is sedated and intubated. Skin: No rash or skin lesions. Psychiatric: Could not be assessed at this time. Musculoskeletal: No joint swelling or deformity. - Labs CBC & Chem 7: 08/30/20 12:00 08/30/20 04:07 Labs: Abnormal Lab Results - Last 24 Hours (Table) 08/29/20 08/29/20 08/29/20 Range/Units 05:00 17:42 21:49 WBC 23.1 H (3.8-10.6) k/uL RBC 2.81 L (3.80-5.40) m/uL Hgb 7.9 L D (11.4-16.0) gm/dL Hct 23.8 L (34.0-46.0) % RDW 18.1 H (11.5-15.5) % Plt Count (150-450) k/uL Neutrophils # (1.3-7.7) k/uL Monocytes # (0-1.0) k/uL ABG O2 Saturation (94-97) % Chloride (98-107) mmol/L Carbon Dioxide (22-30) mmol/L BUN (7-17) mg/dL Creatinine (0.52-1.04) mg/dL Glucose (74-99) mg/dL POC Glucose (mg/dL) 128 H (75-99) mg/dL Calcium (8.4-10.2) mg/dL Crossmatch See Detail 08/29/20 08/30/20 08/30/20 Range/Units 23:50 03:55 04:07 WBC 23.9 H (3.8-10.6) k/uL RBC 2.82 L (3.80-5.40) m/uL Hgb 7.8 L (11.4-16.0) gm/dL Hct 24.2 L (34.0-46.0) % RDW 18.5 H (11.5-15.5) % Plt Count (150-450) k/uL Neutrophils # 17.6 H (1.3-7.7) k/uL Monocytes # 1.7 H (0-1.0) k/uL ABG O2 Saturation 98.1 H (94-97) % Chloride (98-107) mmol/L Carbon Dioxide (22-30) mmol/L BUN (7-17) mg/dL Creatinine (0.52-1.04) mg/dL Glucose (74-99) mg/dL POC Glucose (mg/dL) 117 H (75-99) mg/dL Calcium (8.4-10.2) mg/dL Crossmatch 08/30/20 08/30/20 08/30/20 Range/Units 04:07 05:43 12:00 WBC 28.2 H (3.8-10.6) k/uL RBC 2.79 L (3.80-5.40) m/uL Hgb 7.8 L (11.4-16.0) gm/dL Hct 24.2 L (34.0-46.0) % RDW 18.7 H (11.5-15.5) % Plt Count 498 H (150-450) k/uL Neutrophils # (1.3-7.7) k/uL Monocytes # (0-1.0) k/uL ABG O2 Saturation (94-97) % Chloride 111 H (98-107) mmol/L Carbon Dioxide 21 L (22-30) mmol/L BUN 76 H (7-17) mg/dL Creatinine 5.36 H (0.52-1.04) mg/dL Glucose 112 H (74-99) mg/dL POC Glucose (mg/dL) 120 H (75-99) mg/dL Calcium 8.3 L (8.4-10.2) mg/dL Crossmatch 08/30/20 Range/Units 12:00 WBC (3.8-10.6) k/uL RBC (3.80-5.40) m/uL Hgb (11.4-16.0) gm/dL Hct (34.0-46.0) % RDW (11.5-15.5) % Plt Count (150-450) k/uL Neutrophils # (1.3-7.7) k/uL Monocytes # (0-1.0) k/uL ABG O2 Saturation (94-97) % Chloride (98-107) mmol/L Carbon Dioxide (22-30) mmol/L BUN (7-17) mg/dL Creatinine (0.52-1.04) mg/dL Glucose (74-99) mg/dL POC Glucose (mg/dL) 123 H (75-99) mg/dL Calcium (8.4-10.2) mg/dL Crossmatch Assessment and Plan Assessment: 1. Acute hypoxic respiratory failure requiring mechanical ventilation secondary to pneumonia. patient remains intubated and mechanically ventilated.S/p bronchoscopy due to recurrent mucous plugs and left side opacity. 2. Sepsis, secondary to Streptococcal pneumonia. Status post bronchoscopy. 2. Acute GI bleed status post EGD showing gastric ulcer. 3. Paroxysmal atrial fibrillation with RVR 4. Cardiomyopathy, unknown if ischemic or nonischemic, EF 30-35% 5. Abnormal troponins, possible NSTEMI, may be secondary to hypoxia, sepsis, and/or afib with RVR, however can not rule out underlying coronary artery disease 6. Severe pulmonary hypertension 7. Acute kidney injury Secondary to ATN currently requiring hemodialysis 8. Hypotension requiring vasopressor support 9. History of asthma 10. Hypothyroidism 11. Morbid obesity with a BMI 56.3 PLAN: Patient is being continued on mechanical ventilation. s/p bedside bronchoscopy and aspiration of mucus plugs. Patient is having recurrent mucous plug formation. Continue PPI and monitor H&H. Continue with antibiotics in the form of unasyn. and hemodialysis as per nephrology. Anticoagulation is being changed to Eliquis and also on amiodarone. Currently anticoagulation is on hold. Prognosis guarded at this time. Further recommendations based on the clinical course. Time with Patient: Greater than 30
--- NOTE | 2020-08-30 23:24 | PN ---
PROGRESS NOTE DATE OF SERVICE: 08/30/2020 REASON FOR FOLLOWUP: 1. C difficile colitis. 2. New fever, possible line-related. 3. Oropharyngeal candidiasis. INTERVAL HISTORY: The patient overall fever pattern has improved. The last temperature has been 101 around midnight. No fever since then. The patient remains to be intubated on the vent. FiO2 remains stable. Tolerating her tube feeds. Still has diarrhea. PHYSICAL EXAMINATION: Blood pressure is 101/70 with a pulse of 80, temperature of T-max 101. She is 98% on 40% FiO2. General description is a middle-aged female intubated on the vent. RESPIRATORY SYSTEM: Unlabored breathing, decreased breath sounds in the bases, no wheeze. HEART: S1, S2. Regular rate and rhythm. ABDOMEN: Soft, no tenderness. EXTREMITIES: Some trace edema of feet. LABS: White count 28,000. Blood culture from yesterday so far pending. DIAGNOSTIC IMPRESSION AND PLAN: 1. Patient with aspiration pneumonia adequately treated. 2. Patient now with complicating factor of Clostridium difficile colitis. Continue the vancomycin. Will add Questran for symptomatic relief. 3. Patient with new fever, concern for possible line-related. This patient did have groin dialysis catheter. Blood culture obtained yesterday. Daptomycin has been added with clinical response. 4. Oropharyngeal candidiasis. Continue with Eraxis. Overall prognosis remains to be guarded. MMODL / IJN: [id number] /
[2020-08-30 23:45] LABS: Glucose,Whole Blood 141 mg/dL (75-99)
[2020-08-31] MEDS: DILTIAZEM 125 MG in SODIUM CHLORIDE 0.9% 100 ML IV SCH ×2 (02:07→15:50)
[2020-08-31] MEDS: IPRATROPIUM-ALBUTEROL 3 ML NEB INHALATION SCH ×5 (03:54→19:15)
[2020-08-31 04:24] LABS: Potassium 4.6 mmol/L (3.5-5.1)
[2020-08-31 04:43] LABS: Anisocytosis Slight; Basophils # (A) 0.1 k/uL (0-0.2); Basophils % (A) 1 %; Eosinophils # (A) 0.5 k/uL (0-0.7); Eosinophils % (A) 2 %; HCT 22.7 % (34.0-46.0); HGB 7.3 gm/dL (11.4-16.0); Hypochromasia Slight; Lymphocytes # (A) 1.9 k/uL (1.0-4.8); Lymphocytes % (A) 9 %; MCHC 32.4 g/dL (31.0-37.0); MCV 86.5 fL (80.0-100.0); Mean Platelet Volume 7.8; Monocytes % (A) 5 %; Neutrophils # (A) 16.7 k/uL (1.3-7.7); Neutrophils % (A) 81 %; Platelet Count 399 k/uL (150-450); Poikilocytosis Slight; RBC 2.62 m/uL (3.80-5.40); WBC 20.6 k/uL (3.8-10.6)
[2020-08-31 04:46] LABS: ABG HCO3 21 mmol/L (21-25); ABG Oxygen Saturation 97.6 % (94-97); ABG PCO2 37 mmHg (35-45); ABG PH 7.37 (7.35-7.45); ABG PO2 92 mmHg (83-108); ABG TCO2 23 mmol/L (19-24); Allen Test Performed? Yes
[2020-08-31] MEDS: INSULIN ASPART (NovoLOG) 100 UNIT/ML VIAL SQ SCH ×3 (06:48→18:27)
[2020-08-31] MEDS: LEVOTHYROXINE 100 MCG TAB PO SCH (06:51)
[2020-08-31] MEDS: VANCOMYCIN ORAL SOLUTION 250 MG/5 ML BOTTLE PO SCH ×3 (06:51→20:25)
[2020-08-31] MEDS: CALCIUM ACETATE 667 MG TAB PO SCH ×3 (06:52→20:25)
[2020-08-31 06:59] LABS: Glucose,Whole Blood 112 mg/dL (75-99)
[2020-08-31] MEDS: FORMOTEROL FUMARATE 20 MCG/2 ML NEBU INHALATION SCH ×2 (07:00→19:15)
[2020-08-31] MEDS: BUDESONIDE 1 MG/2 ML NEBU INHALATION SCH ×2 (07:00→19:15)
--- NOTE | 2020-08-31 08:33 | XR ---
EXAMINATION TYPE: XR chest 1V portable DATE OF EXAM: 08/31/2020 CLINICAL HISTORY: OG placement. TECHNIQUE: Portable frontal view of the chest. COMPARISON: 08/31/2020 at 6:03 AM chest radiograph FINDINGS: Interval advancement of endotracheal tube with distal tip overlying the left upper quadran t over the projected area of the stomach. Endotracheal tube and left PICC unchanged. Near complete op acification of the left hemithorax with mildly improved aeration of the left upper lung which may be due to differences in technique. No pneumothorax. IMPRESSION: 1. Enteric tube distal tip over the left upper quadrant projected area of the stomach. 2. Mildly improved aeration of the left upper lung.
--- NOTE | 2020-08-31 08:36 | XR ---
EXAMINATION TYPE: XR chest 1V portable DATE OF EXAM: 08/31/2020 CLINICAL HISTORY: ICU management . TECHNIQUE: Portable semiupright view of the chest. COMPARISON: 08/30/2020 chest radiograph FINDINGS: Enteric tube distal tip overlies the upper esophagus, demonstrating interval advancement on subsequent follow-up chest radiograph at 7:22 AM. Endotracheal tube and left PIC redemonstrated. Jennifer r complete opacification of the left hemithorax, probably increased over the left upper lung versus 1 10/30/2019. No pneumothorax. IMPRESSION: 1. Enteric tube distal tip over the upper esophagus, with interval advancement on same day follow-up chest radiograph at 7:22 AM. 2. Near complete opacification of the left hemithorax.
[2020-08-31] MEDS: ERGOCALCIFEROL 50,000 UNIT CAP PO SCH (10:11)
[2020-08-31] MEDS: CHLORHEXIDINE GLUCONATE 15 ML CUP MUCOUS MEM SCH ×2 (10:19→20:25)
[2020-08-31] MEDS: METOPROLOL TARTRATE 25 MG TAB PO SCH ×2 (10:19→20:25)
[2020-08-31] MEDS: ANIDULAFUNGIN 100 MG in SODIUM CHLORIDE 0.9% 100 ML IVPB SCH (10:19)
[2020-08-31] MEDS: PARoxetine 20 MG TAB PO SCH (10:19)
[2020-08-31] MEDS: PANTOPRAZOLE 40 MG/10 ML VIAL IVP SCH (10:19)
[2020-08-31] MEDS: AMIODARONE 200 MG TAB PO SCH ×2 (10:19→20:26)
[2020-08-31] MEDS: NOREPINEPHRINE 8 MG in SODIUM CHLORIDE 0.9% 250 ML IV SCH ×2 (10:22→14:05)
--- NOTE | 2020-08-31 11:45 | P.PN ---
Subjective Patient is seen in follow-up for acute kidney injury. She is currently hemodialysis dependent. She is intubated, on 40% FiO2. Maintained on Cardizem drip for A. fib. She is also on Levophed as well. Scheduled for tracheostomy and PEG tube placement today. Vital signs are stable. On vasopressor support. General: The patient appeared well nourished and normally developed. HEENT: Head exam is unremarkable. Intubated. LUNGS: Breath sounds decreased. HEART: Rate and Rhythm are regular. ABDOMEN: Soft, obese. EXTREMITITES: 2+ edema. Objective - Vital Signs Vital signs: Vital Signs Temp 98.5 F 08/31/20 08:00 Pulse 88 08/31/20 11:00 Resp 22 08/31/20 11:00 BP 101/56 08/30/20 18:22 Pulse Ox 98 08/31/20 11:00 Intake & Output 08/30/20 08/31/20 08/31/20 18:59 06:59 18:59 Intake Total 525.892 4599.238 241.151 Output Total 3030 930 10 Balance -2057.144 369.238 231.151 Weight 149.3 kg 149.3 kg Intake: IV 156 156 65 0.9 120 120 50 Pressure Bag 36 36 15 Intake, IV Titration 618.856 657.238 176.151 Amount Diltiazem 125 mg In 115.375 17.5 68.667 Sodium Chloride 0.9% 100 ml @ 7.5 MG/HR 7.5 mls/hr IV .[id number] [facility] Rx#: [id number] Norepinephrine 8 mg In 113.154 218.825 7.484 Sodium Chloride 0.9% 250 ml @ 0.05 MCG/KG/MIN 14. 967 mls/hr IV .[id number] [facility] Rx#:[id number] propofoL 1,000 mg In 390.327 420.913 100 Empty Bag 1 bag @ Titrate IV .Q0M [facility] Rx#: [id number] Tube Feeding 108 396 0 Other 90 90 Output: Urine 30 30 10 Stool 900 Hemodialysis 3000 Other: Voiding Method Indwelling Catheter Indwelling Catheter Indwelling Catheter ABP, PAP, CO, CI - Last Documented Arterial Blood Pressure 88/45 - Labs CBC & Chem 7: 08/31/20 03:51 08/31/20 03:51 Labs: Abnormal Lab Results - Last 24 Hours (Table) 08/30/20 08/30/20 08/30/20 Range/Units 12:00 12:00 17:25 WBC 28.2 H (3.8-10.6) k/uL RBC 2.79 L (3.80-5.40) m/uL Hgb 7.8 L (11.4-16.0) gm/dL Hct 24.2 L (34.0-46.0) % RDW 18.7 H (11.5-15.5) % Plt Count 498 H (150-450) k/uL Neutrophils # (1.3-7.7) k/uL ABG O2 Saturation (94-97) % Carbon Dioxide (22-30) mmol/L BUN (7-17) mg/dL Creatinine (0.52-1.04) mg/dL Glucose (74-99) mg/dL POC Glucose (mg/dL) 123 H 137 H (75-99) mg/dL Calcium (8.4-10.2) mg/dL 08/30/20 08/30/20 08/31/20 Range/Units 18:22 23:42 03:51 WBC 20.6 H (3.8-10.6) k/uL RBC 2.62 L (3.80-5.40) m/uL Hgb 7.3 L (11.4-16.0) gm/dL Hct 22.7 L (34.0-46.0) % RDW 19.0 H (11.5-15.5) % Plt Count (150-450) k/uL Neutrophils # 16.7 H (1.3-7.7) k/uL ABG O2 Saturation (94-97) % Carbon Dioxide (22-30) mmol/L BUN (7-17) mg/dL Creatinine (0.52-1.04) mg/dL Glucose (74-99) mg/dL POC Glucose (mg/dL) 132 H 141 H (75-99) mg/dL Calcium (8.4-10.2) mg/dL 08/31/20 08/31/20 08/31/20 Range/Units 03:51 04:43 06:48 WBC (3.8-10.6) k/uL RBC (3.80-5.40) m/uL Hgb (11.4-16.0) gm/dL Hct (34.0-46.0) % RDW (11.5-15.5) % Plt Count (150-450) k/uL Neutrophils # (1.3-7.7) k/uL ABG O2 Saturation 97.6 H (94-97) % Carbon Dioxide 21 L (22-30) mmol/L BUN 66 H (7-17) mg/dL Creatinine 5.21 H (0.52-1.04) mg/dL Glucose 129 H (74-99) mg/dL POC Glucose (mg/dL) 112 H (75-99) mg/dL Calcium 8.0 L (8.4-10.2) mg/dL Microbiology - Last 24 Hours (Table) 08/26/20 09:00 Fungal Culture - Preliminary Bronchoalviolar Lavage - Left Liliana albicans Assessment and Plan Plan: Assessment: 1. Acute kidney injury, currently hemodialysis dependent. Etiology is ATN secondary to septic shock. Urine output 0-5 mL an hour. Diuretic unresponsive. Baseline creatinine near 1. 2. Septic shock secondary to pneumonia. Status post multiple bronchoscopies this admission with removal of mucous plugs. Maintained on antibiotics. 3. Volume overload. Improving with ultrafiltration. 4. Metabolic acidosis secondary to acute kidney injury. Stable. 5. Hypervolemic hyponatremia. Improved with ultrafiltration. 6. Hyperphosphatemia secondary to acute kidney injury Maintained on PhosLo. 7. Anemia secondary to acute GI bleed. Component of underlying renal disease. Maintained on Aranesp. Status post blood transfusion on August 29. Status post IV DDAVP. Status post EGD August 30 - gastric ulcer noted with active bleeding status post Endo Clip. 8. A. fib with RVR maintained on Cardizem drip. 9. C. diff colitis maintained on oral vancomycin. Plan: Hemodialysis today with 2-3 L ultrafiltration is able to tolerate. Continue with daily dialysis due to severe volume overload. Wean FiO2. Continue to monitor renal function and urine output. Patient's dialysis catheter was placed August 20. Vascular surgery will be notified again today for permacath placement. Scheduled for tracheostomy and PEG tube today.
[2020-08-31] MEDS ORDERED: PROPOFOL 10 MG/ML 20 ML VIAL IV ONE (12:18)
[2020-08-31] MEDS ORDERED: ROCURONIUM 10 MG/ML (10 ML VIAL) IV ONE (12:18)
--- NOTE | 2020-08-31 12:38 | P.PN ---
Subjective Progress Note Date: 08/31/20 Principal diagnosis: Acute GI bleed This is a 55-year-old female who was admitted in the early part of August with complaints of shortness of breath and weakness and ultimately acute respiratory failure who is presently intubated and sedated on a ventilator in the ICU. During the course of her hospitalization she developed acute kidney injury was started on hemodialysis week ago the patient's been on Eliquis for atrial fibrillation which was on hold for permacath placement. She had 2 episodes of black tarry stools, a FMS was placed which she continued to have black tarry stools. Her hemoglobin had dropped from 7.8-6.0 and she is status post 2 units blood transfusion. She underwent an upper endoscopy yesterday and examined including a proximal gastric ulcer with active bleeding status post Endo Clip placement and a small hiatal hernia. The patient continues to have dark stools per her FMS as reported by her nurse. Her hemoglobin this morning was 7.3. She is scheduled for tracheostomy and PEG tube placement with Dr. Mckinley this afternoon. Objective - Vital Signs Vital signs: Vital Signs Temp 98.5 F 08/31/20 08:00 Pulse 87 08/31/20 11:55 Resp 22 08/31/20 11:00 BP 101/56 08/30/20 18:22 Pulse Ox 98 08/31/20 11:00 Intake & Output 08/30/20 08/31/20 08/31/20 18:59 06:59 18:59 Intake Total 185.029 2907.238 241.151 Output Total 3030 930 10 Balance -2057.144 369.238 231.151 Weight 149.3 kg 149.3 kg Intake: IV 156 156 65 0.9 120 120 50 Pressure Bag 36 36 15 Intake, IV Titration 618.856 657.238 176.151 Amount Diltiazem 125 mg In 115.375 17.5 68.667 Sodium Chloride 0.9% 100 ml @ 7.5 MG/HR 7.5 mls/hr IV .[id number] [facility] Rx#: [id number] Norepinephrine 8 mg In 113.154 218.825 7.484 Sodium Chloride 0.9% 250 ml @ 0.05 MCG/KG/MIN 14. 967 mls/hr IV .[id number] [facility] Rx#:[id number] propofoL 1,000 mg In 390.327 420.913 100 Empty Bag 1 bag @ Titrate IV .Q0M [facility] Rx#: [id number] Tube Feeding 108 396 0 Other 90 90 Output: Urine 30 30 10 Stool 900 Hemodialysis 3000 Other: Voiding Method Indwelling Catheter Indwelling Catheter Indwelling Catheter ABP, PAP, CO, CI - Last Documented Arterial Blood Pressure 88/45 - Exam General appearance: The patient is sedated and on mechanical ventilation. Physical examination as per attending physician. - Labs CBC & Chem 7: 08/31/20 03:51 08/31/20 03:51 Labs: Abnormal Lab Results - Last 24 Hours (Table) 08/30/20 08/30/20 08/30/20 Range/Units 12:00 17:25 18:22 WBC 28.2 H (3.8-10.6) k/uL RBC 2.79 L (3.80-5.40) m/uL Hgb 7.8 L (11.4-16.0) gm/dL Hct 24.2 L (34.0-46.0) % RDW 18.7 H (11.5-15.5) % Plt Count 498 H (150-450) k/uL Neutrophils # (1.3-7.7) k/uL ABG O2 Saturation (94-97) % Carbon Dioxide (22-30) mmol/L BUN (7-17) mg/dL Creatinine (0.52-1.04) mg/dL Glucose (74-99) mg/dL POC Glucose (mg/dL) 137 H 132 H (75-99) mg/dL Calcium (8.4-10.2) mg/dL 08/30/20 08/31/20 08/31/20 Range/Units 23:42 03:51 03:51 WBC 20.6 H (3.8-10.6) k/uL RBC 2.62 L (3.80-5.40) m/uL Hgb 7.3 L (11.4-16.0) gm/dL Hct 22.7 L (34.0-46.0) % RDW 19.0 H (11.5-15.5) % Plt Count (150-450) k/uL Neutrophils # 16.7 H (1.3-7.7) k/uL ABG O2 Saturation (94-97) % Carbon Dioxide 21 L (22-30) mmol/L BUN 66 H (7-17) mg/dL Creatinine 5.21 H (0.52-1.04) mg/dL Glucose 129 H (74-99) mg/dL POC Glucose (mg/dL) 141 H (75-99) mg/dL Calcium 8.0 L (8.4-10.2) mg/dL 08/31/20 08/31/20 Range/Units 04:43 06:48 WBC (3.8-10.6) k/uL RBC (3.80-5.40) m/uL Hgb (11.4-16.0) gm/dL Hct (34.0-46.0) % RDW (11.5-15.5) % Plt Count (150-450) k/uL Neutrophils # (1.3-7.7) k/uL ABG O2 Saturation 97.6 H (94-97) % Carbon Dioxide (22-30) mmol/L BUN (7-17) mg/dL Creatinine (0.52-1.04) mg/dL Glucose (74-99) mg/dL POC Glucose (mg/dL) 112 H (75-99) mg/dL Calcium (8.4-10.2) mg/dL Microbiology - Last 24 Hours (Table) 08/26/20 09:00 Fungal Culture - Preliminary Bronchoalviolar Lavage - Left Liliana albicans Assessment and Plan (1) Acute gastrointestinal bleeding Narrative/Plan: This a 55-year-old white female who had acute onset of black tarry stools that started 2 days ago. She had a drop in her hemoglobin from 7.6-6 requiring 2 units of blood transfusion. She was recently started on Eliquis for atrial fibrillation which has been on hold. She is status post upper endoscopy findings that included a gastric ulcer with active bleeding status post Endo Clip. Her hemoglobin remained stable today at 7.3. Current Visit: Yes Status: Acute Code(s): K92.2 - GASTROINTESTINAL HEMORRHAGE, UNSPECIFIED SNOMED Code(s): 41396869 (2) Gastric ulcer with hemorrhage Current Visit: Yes Status: Acute Code(s): K25.4 - CHRONIC OR UNSPECIFIED GASTRIC ULCER WITH HEMORRHAGE SNOMED Code(s): 51962985 (3) Morbid obesity Current Visit: Yes Status: Acute Code(s): E66.01 - MORBID (SEVERE) OBESITY DUE TO EXCESS CALORIES SNOMED Code(s): 090640025 (4) Acute respiratory failure with hypoxia Narrative/Plan: Acute respiratory failure who is presently on mechanical ventilation and sedated secondary to left lower lobe pneumonia and sepsis. Patient treated with broad- spectrum antibiotics. Current Visit: Yes Status: Acute Code(s): J96.01 - ACUTE RESPIRATORY FAILURE WITH HYPOXIA SNOMED Code(s): 89895632 Plan: 1. Continue supportive care 2. Continue Protonix 40 mg twice daily 3. Repeat CBC in morning, transfuse if hemoglobin less than 7 4. Patient is status post upper endoscopy 5. Patient is scheduled for tracheostomy and PEG tube placement per surgery today 6. Continue to hold anticoagulation at this time 7. May proceed with tube feedings if no further drop in hemoglobin We will continue to follow The impression and plan of care has been dictated as directed. I performed a history and examination of this patient, discussed the same with the dictator. I agree with the dictator's note ,documented as a scribe. Any additional findings or plans will be noted.
[2020-08-31] MEDS ORDERED: SODIUM CHLORIDE 0.9% 400 ML IV ONE ×2 (12:41)
--- NOTE | 2020-08-31 13:43 | P.OP ---
Date of Procedure: 08/31/20 Preoperative Diagnosis: Respiratory failure Malnutrition Postoperative Diagnosis: Retrograde failure. Malnutrition Procedure(s) Performed: Tracheostomy EGD Anesthesia: KAUR Surgeon: Tate Mckinley Estimated Blood Loss (ml): 5 Pathology: none sent Condition: stable Disposition: PACU Description of Procedure: The patient's placed on the operative table in supine position. She received general anesthesia. Her neck was prepped and draped usual fashion. Standard Kelsey incision made proximal to 2 cm above the sternal notch. Using left cautery the skin subcutaneous tissue divided. The Costilla traction placed a wound. And strap muscle were divided midline. The trachea was exposed. The endotracheal tube was then advanced into the right mainstem bronchus. A tracheotomy was made between second and third tracheal rings. The endotracheal tube was brought back and then the #7 [place] tracheostomy tube was placed the trachea. Patient's Ventilator and End-Tidal CO2 Was Confirmed. Retractors Were Withdrawn. Skin Was Closed with Interrupted 3-0 Nylon Sutures. Next the Gastroscope Placed Oropharynx and into the Esophagus and into the Stomach. The Patient Is Morbidly Obese. Her BMI Was 54. A Suitable Light Reflux on the Anterior Abdominal Wall Cannot Be Visualized. Attempts were made to pass the needle into stomach however was impossible. Patient's abdominal wall thickening. At this point the gastric scope was withdrawn. Patient had the orogastric tube placed. The patient was sent back to the ICU in stable condition.
[2020-08-31] MEDS: LACTATED RINGERS 1,000 ML IV SCH (14:04)
--- NOTE | 2020-08-31 14:24 | P.PN ---
Subjective Progress Note Date: 08/31/20 Principal diagnosis: Acute hypoxic respiratory failure and acute streptococcal pneumonia. On 08/30/2020, the patient remains sedated on propofol and she is calm and comfortable. She remains on a mechanical ventilator. She is intubated by #7.5 orotracheal tube. She is on assist control mode at the rate of 20 with a tidal volume of 450 and FiO2 of 40% with a PEEP of 5. Blood gas showed a pH of 7.37 with a pCO2 of 38 and pO2 97. The chest x-ray shows partial reexpansion of the left upper lobe. There is Still atelectasis of left lower lobe post bronchoscopy and therapeutic it was suctioning and removal of mucous plugs. The patient is having significant amount of mucous plugs. I did a fourth bronchoscopy today where I was able to utilize a regular bronchoscope and I was able to evacuate all of the mucous plugs without any major difficulties and by the completion of today's procedure, the patient taken airways to the left upper lobe, lingula and left lower lobe. The patient meanwhile had an EGD done by gastroenterology. EGD showed a gastric ulcer that was ligated and clipped. This was a 1 cm proximal gastric ulcer distal to the GE junction along the lesser curvature of the stomach. There was also a small hiatal hernia. Noted the patient is off tube feeds pH is not showing any signs of bleeding patient is also off articulation for now. She has requiring boluses levo fed at a dose of 0.04 mg per KG per minute. IV fluids at KVO. The patient is receiving periodic hemodialysis per nephrology will remain to be on the case. My plan was to proceed with a tracheostomy and PEG tube insertion this patient and for that reason general surgery has been consulted for insertion of a tracheostomy and a PEG tube insertion of a later stage. The white cell count is 28. Hemoglobin was at 7.8. The renal function shows a BUN of 76 with a creatinine of 5.36. She remains on IV Unasyn. She did receive packed RBC blood transfusion and hemoglobin has been stable at 7.8. The plan is also to proceed with a hemodialysis ultrafiltration of 3 L of long as the patient is able to tolerate. Reevaluated today on 08/31/20, patient remains in the ICU, intubated and mechanically ventilated. Her ventilator settings are volume control plus of 450 FiO2 40% rate is 20 PEEP is 5. ABG showed a pO2 of 92 pCO2 of 37 pH of 7.37. Chest x-ray which I reviewed earlier this morning showed complete collapse of the left lung suggestive of endobronchial mucous plug. Hence bronchoscopy was performed, and the left lung was lavaged. Patient is scheduled to undergo trac heostomy and PEG tube placement today. Patient is on Cardizem drip at 10 mg per hour, propofol at 55 mcg/kg/m, she has a PICC line in the left brachial area, and she has a right radial arterial line. Again she scheduled to have tracheostomy and PEG tube today. Patient is sedated on propofol, looking at the previous notes by my partners, this is today the fifth bronchoscopy to clear mucous plugs from the left lung. Patient also had previous EGD and gastric ulcer was noted proximally. This was ligated and clipped by gastroenterology. Patient remains on hemodialysis. Nephrology remains on the case. She remains on Unasyn for her pneumonia. WBC count today is 20.6 hemoglobin is 7.3. Lindsey telets are normal. Electrolytes are normal. BUN is 66 creatinine is 5.2 1. patient is not requiring any pressors, she is hemodynamically stable. Her enteral feeding is presently on hold, will resume this tomorrow after placement of the PEG tube likely today. Objective - Vital Signs Vital signs: Vital Signs Temp 98.5 F 08/31/20 12:21 Pulse 97 08/31/20 12:21 Resp 23 08/31/20 12:21 BP 111/52 08/31/20 12:21 Pulse Ox 98 08/31/20 11:00 Intake & Output 08/30/20 08/31/20 08/31/20 18:59 06:59 18:59 Intake Total 092.710 1079.238 591.151 Output Total 3030 930 3020 Balance -2057.144 369.238 -2428.849 Weight 149.3 kg 149.3 kg Intake: IV 156 156 415 0.9 120 120 50 Pressure Bag 36 36 15 Intake, IV Titration 618.856 657.238 176.151 Amount Diltiazem 125 mg In 115.375 17.5 68.667 Sodium Chloride 0.9% 100 ml @ 7.5 MG/HR 7.5 mls/hr IV .[id number] [facility] Rx#: [id number] Norepinephrine 8 mg In 113.154 218.825 7.484 Sodium Chloride 0.9% 250 ml @ 0.05 MCG/KG/MIN 14. 967 mls/hr IV .[id number] [facility] Rx#:[id number] propofoL 1,000 mg In 390.327 420.913 100 Empty Bag 1 bag @ Titrate IV .Q0M [facility] Rx#: [id number] Tube Feeding 108 396 0 Other 90 90 Output: Urine 30 30 10 Stool 900 Hemodialysis 3000 3000 Estimated Blood Loss 10 Other: Voiding Method Indwelling Catheter Indwelling Catheter Indwelling Catheter ABP, PAP, CO, CI - Last Documented Arterial Blood Pressure 88/45 - Exam Physical Exam: Revealed a 55-year-old female morbidly obese, intubated and mechanically ventilated, sedated with propofol. Head: Atraumatic normocephalic. Endotracheal tube and orogastric tubes are intact. EENT: PERRLA, EOMI, extremely dry mucous membranes noted. [Neck is supple.] [No neck masses.] [No thyromegaly.] [No JVD.] Chest: Crackles and rhonchi noted diminished breath sound on the left side. Cardiac Exam: Distant S1 and S2, no S3 gallop. No murmur. Abdomen: Morbidly obese, [Soft, nontender, no megaly, no rebound, no guarding, normal bowel sounds.] Extremities: [No clubbing, no edema, no cyanosis.] Diminished pulses bilaterally. Left brachial PICC line is noted, and the right radial arterial line Neurological Exam: Sedated, on propofol, patient is scheduled to undergo a PEG tube and trach yesterday today, hence no plans to wean today. Psychiatric: Could not be assessed. Skin: No rashes. - Labs CBC & Chem 7: 08/31/20 03:51 08/31/20 03:51 Labs: Abnormal Lab Results - Last 24 Hours (Table) 08/30/20 08/30/20 08/30/20 Range/Units 17:25 18:22 23:42 WBC (3.8-10.6) k/uL RBC (3.80-5.40) m/uL Hgb (11.4-16.0) gm/dL Hct (34.0-46.0) % RDW (11.5-15.5) % Neutrophils # (1.3-7.7) k/uL ABG O2 Saturation (94-97) % Carbon Dioxide (22-30) mmol/L BUN (7-17) mg/dL Creatinine (0.52-1.04) mg/dL Glucose (74-99) mg/dL POC Glucose (mg/dL) 137 H 132 H 141 H (75-99) mg/dL Calcium (8.4-10.2) mg/dL 08/31/20 08/31/20 08/31/20 Range/Units 03:51 03:51 04:43 WBC 20.6 H (3.8-10.6) k/uL RBC 2.62 L (3.80-5.40) m/uL Hgb 7.3 L (11.4-16.0) gm/dL Hct 22.7 L (34.0-46.0) % RDW 19.0 H (11.5-15.5) % Neutrophils # 16.7 H (1.3-7.7) k/uL ABG O2 Saturation 97.6 H (94-97) % Carbon Dioxide 21 L (22-30) mmol/L BUN 66 H (7-17) mg/dL Creatinine 5.21 H (0.52-1.04) mg/dL Glucose 129 H (74-99) mg/dL POC Glucose (mg/dL) (75-99) mg/dL Calcium 8.0 L (8.4-10.2) mg/dL 08/31/20 Range/Units 06:48 WBC (3.8-10.6) k/uL RBC (3.80-5.40) m/uL Hgb (11.4-16.0) gm/dL Hct (34.0-46.0) % RDW (11.5-15.5) % Neutrophils # (1.3-7.7) k/uL ABG O2 Saturation (94-97) % Carbon Dioxide (22-30) mmol/L BUN (7-17) mg/dL Creatinine (0.52-1.04) mg/dL Glucose (74-99) mg/dL POC Glucose (mg/dL) 112 H (75-99) mg/dL Calcium (8.4-10.2) mg/dL Microbiology - Last 24 Hours (Table) 08/17/20 10:36 Fungal Culture - Preliminary Bronchoalviolar Lavage - Left 08/26/20 09:00 Fungal Culture - Preliminary Bronchoalviolar Lavage - Left Liliana albicans Assessment and Plan Assessment: Impression: Acute hypoxic and hypercapnic respiratory failure secondary to pneumonia, this is mostly streptococcal pneumonia. Recurrent collapse of the left lung secondary to mucous plugs requiring bronchoscopy, today underwent her fifth bronchoscopy to clear mucous plugs from the left lung. Acute kidney injury currently hemodialysis dependent. Upper GI bleeding requiring EGD and clipping of ulcer at the lesser curvature of the stomach. Persistent leukocytosis. Paroxysmal atrial fibrillation remains on Cardizem today. Acute metabolic, possibly drug induced encephalopathy. Acute left lower lobe pneumonia, community-acquired. Doubt covid 19 pneumonitis. However is not entirely ruled out. Sepsis and septic shock secondary to left lower lobe pneumonia Acute exacerbation of moderate persistent bronchial asthma secondary to pneumonia. Obstructive sleep apnea syndrome. Patient had a sleep evaluation back in November of [address] Ray. Patient had an apnea/hypopnea index of 156.7. And CPAP was prescribed for this patient back in 2018. Obesity/hypoventilation syndrome. Type 2 diabetes. History of depression and generalized anxiety disorder. History of hypothyroidism. Recommendation: Bronchoscopy was done today for left lung collapse. And mucous plugs were removed and lavage. Continue ventilatory support, no changes in vent settings were made, patient is undergoing tracheostomy and PEG tube placement sometime today. Continue nutritional support. Will start using the PEG tube tomorrow. Continue Cardizem for atrial fibrillation. Continue GI and DVT prophylaxis. Continue propofol for sedation. Continue hemodialysis as per nephrology. Continue close monitoring and treatment of sugars. Continue antibiotics for her left sided pneumonia. Overall prognosis remains extremely poor and guarded, will start at least some weaning trials in the next 24 hours after tracheostomy and PEG tube placement. Otherwise we'll have to consider looking for placement. Critical care time is 35 minutes, not including the time spent on procedures. Time with Patient: Greater than 30
--- NOTE | 2020-08-31 15:40 | XR ---
EXAMINATION TYPE: XR chest 1V portable DATE OF EXAM: 08/31/2020 CLINICAL HISTORY: Post-OR NG tube placement. TECHNIQUE: Portable semiupright view of the chest. COMPARISON: 08/31/2020 7:[address] chest 03/19/2017. FINDINGS: Interval placement of tracheostomy tube which overlies the tracheal air column, and remova l of endotracheal tube. Enteric tube courses over the left upper quadrant over the projected area of the stomach with nonvisualization of the distal tip. Left PICC unchanged. Left basilar opacity redemo nstrated. No sizable pneumothorax. IMPRESSION: 1. Interval placement of tracheostomy tube which overlies the tracheal air column. 2. Otherwise radiographic appearance of the chest not significantly changed versus 7:22 AM comparison .
--- NOTE | 2020-08-31 17:01 | PCN ---
PROCEDURE NOTE PROCEDURE NOTE: Bronchoscopy and bronchoalveolar lavage of the left lung. PREOPERATIVE DIAGNOSIS: Left lung collapse secondary to mucus plugging. POSTOPERATIVE DIAGNOSIS: Left lung collapse secondary to mucus plugging. ANESTHESIA USED: This patient was already on propofol drip and she was already on mechanical ventilation. Hence, no further sedation was given. PROCEDURE DESCRIPTION: The patient was placed in a supine position, the adapter was applied to the endotracheal tube, patient was already connected to mechanical ventilation. Then, the disposable bronchoscope was inserted through the adapter down to the distal end of the endotracheal tube, rashid was visualized, right mainstem bronchus was visualized, and left mainstem bronchus was also visualized. Then the right side was examined, no evidence of any mucus plugs or secretions in the right lung. However, as we entered the left mainstem bronchus, there was significant and thick bloody plugs noted in the left upper lobe lingula and left lower lobe. These were suctioned and lavaged with saline until clear. The procedure was well tolerated, no evidence of any immediate complications. MMODL / IJN: [id number] /
[2020-08-31 18:25] LABS: Glucose,Whole Blood 105 mg/dL (75-99)
--- NOTE | 2020-08-31 19:43 | P.PN ---
Subjective 55-year-old female patient was morbid obesity as well as multiple comorbid conditions who was admitted to the hospital with acute hypoxic respiratory failure secondary to pneumonia and she was intubated and placed on mechanical ventilation. Patient has been followed closely by pulmonary service, her lung today was completely collapsed on the left side commissioned oriented bronchoscopy as per pulmonary team with removal of the mucous plug. She remains 1 or spectrum antibiotics with Eraxis and daptomycin. For her sepsis and oral candidiasis. Also she is on oral vancomycin For C. diff colitis. Also she is on dialysis for her acute kidney injury. A GI team evaluated the patient and had endoscopy with EGD showing gastric ulcer status post clipping. Surgery team also on the case and planning for PEG tube and tracheostomy placement today. Her chest x-ray today was showing complete collapse of the left side. WBC is 20.6 K, hemoglobin 7.3. BMP is unremarkable and she has high creatinine Review of systems: N/a Active Medications Generic Name Dose Route Start Last Admin Trade Name Freq PRN Reason Stop Dose Admin Albuterol/Ipratropium 3 ml 08/16/20 09:26 Ipratropium-Albuterol 3 Ml Neb INHALATION RT-Q2H PRN Shortness Of Breath Or Wheezing Albuterol/Ipratropium 3 ml 08/18/20 12:00 08/31/20 19:15 Ipratropium-Albuterol 3 Ml Neb INHALATION 3 ml RT-Q4H [facility] Administration Amiodarone HCl 200 mg 08/30/20 09:00 08/31/20 10:19 Amiodarone 200 Mg Tab PO 200 mg BID [facility] Administration Budesonide 1 mg 08/16/20 20:00 08/31/20 19:15 Budesonide 1 Mg/2 Ml Nebu INHALATION 1 mg RT-BID [facility] Administration Calcium Acetate 667 mg 08/24/20 17:30 08/31/20 14:06 Calcium Acetate 667 Mg Tab PO Not Given TID-W/MEALS [facility] Chlorhexidine Gluconate 15 ml 08/17/20 09:00 08/31/20 10:19 Chlorhexidine Gluconate 15 Ml Cup MUCOUS MEM 15 ml BID [facility] Administration Darbepoetin Sammy 40 mcg 08/28/20 16:00 08/28/20 16:37 Darbepoetin Sammy 40 Mcg/0.4 Ml Syringe SQ 40 mcg Q7D [facility] Administration Ergocalciferol 50,000 unit 08/21/20 09:00 08/31/20 10:11 Ergocalciferol 50,000 Unit Cap PO Not Given DAILY [facility] Formoterol Fumarate 20 mcg 08/16/20 20:00 08/31/20 19:15 Formoterol Fumarate 20 Mcg/2 Ml Nebu INHALATION 20 mcg RT-BID [facility] Administration Hydromorphone HCl 1 mg 08/21/20 10:45 08/29/20 07:20 Hydromorphone 1 Mg/Ml 1 Ml Syringe IVP 1 mg Q1HR PRN Administration Maintain Sync w/ vent or Pain Anidulafungin 100 mg/ Sodium 100 mls @ 84 mls/hr 08/23/20 09:00 08/31/20 10:19 Chloride IVPB 84 mls/hr DAILY [facility] Administration Propofol 1,000 mg/ IV Solution 100 mls @ 0 mls/hr 08/29/20 20:00 08/31/20 10:20 IV 35 mcg/kg/min .Q0M [facility] 31.521 mls/hr Administration Protocol Titrate Daptomycin 1,000 mg/ Sodium 50 mls @ 100 mls/hr 08/29/20 22:00 08/29/20 22:30 Chloride IVPB 100 mls/hr Q48H [facility] Administration Protocol Diltiazem HCl 125 mg/ Sodium 125 mls @ 7.5 mls/hr 08/30/20 04:45 08/31/20 15:50 Chloride IV 10 mg/hr .[id number] [facility] 10 mls/hr Administration 7.5 MG/HR Lactated Ringer's 1,000 mls @ 20 mls/hr 08/31/20 10:18 08/31/20 14:04 Lactated Ringers IV Not Given .Q24H [facility] Norepinephrine Bitartrate 8 mg 258 mls @ 14.445 mls/hr 08/31/20 10:18 08/31/20 14:05 / Sodium Chloride IV 0.05 mcg/kg/min .[id number] [facility] 14.445 mls/hr Administration Protocol 0.05 MCG/KG/MIN Insulin Aspart 0 unit 08/17/20 00:00 08/31/20 18:27 Insulin Aspart (Novolog) 100 Unit/Ml Vial SQ Not Given Q6H [facility] Protocol Levothyroxine Sodium 200 mcg 11/08/20 14:15 08/31/20 06:51 Levothyroxine 100 Mcg Tab PO 200 mcg DAILY@0630 [facility] Administration Metoprolol Tartrate 25 mg 08/23/20 09:00 08/31/20 10:19 Metoprolol Tartrate 25 Mg Tab PO 25 mg BID [facility] Administration Naloxone HCl 0.2 mg 08/15/20 22:05 Naloxone 0.4 Mg/Ml 1 Ml Vial IV Q2M PRN Opioid Reversal Pantoprazole Sodium 40 mg 08/17/20 09:00 08/31/20 10:19 Pantoprazole 40 Mg/10 Ml Vial IVP 40 mg DAILY [facility] Administration Paroxetine HCl 40 mg 08/17/20 09:00 08/31/20 10:19 Paroxetine 20 Mg Tab PO 40 mg DAILY [facility] Administration Vancomycin HCl 250 mg 08/29/20 18:00 08/31/20 14:07 Vancomycin Oral Solution 250 Mg/5 Ml Bottle PO Not Given Q6HR [facility] Objective - Vital Signs Vital signs: Vital Signs Temp 98.5 F 08/31/20 12:21 Pulse 85 08/31/20 16:00 Resp 17 08/31/20 16:00 BP 111/52 08/31/20 12:21 Pulse Ox 100 08/31/20 16:00 Intake & Output 08/30/20 08/31/20 08/31/20 18:59 06:59 18:59 Intake Total 490.443 1113.238 694.984 Output Total 3030 930 3020 Balance -2057.144 369.238 -5195.016 Weight 149.3 kg 149.3 kg Intake: IV 156 156 480 0.9 120 120 100 Pressure Bag 36 36 30 Intake, IV Titration 618.856 657.238 214.984 Amount Diltiazem 125 mg In 115.375 17.5 107.500 Sodium Chloride 0.9% 100 ml @ 7.5 MG/HR 7.5 mls/hr IV .[id number] [facility] Rx#: [id number] Norepinephrine 8 mg In 113.154 218.825 7.484 Sodium Chloride 0.9% 250 ml @ 0.05 MCG/KG/MIN 14. 967 mls/hr IV .[id number] [facility] Rx#:[id number] propofoL 1,000 mg In 390.327 420.913 100 Empty Bag 1 bag @ Titrate IV .Q0M [facility] Rx#: [id number] Tube Feeding 108 396 0 Other 90 90 Output: Urine 30 30 10 Stool 900 Hemodialysis 3000 3000 Estimated Blood Loss 10 Other: Voiding Method Indwelling Catheter Indwelling Catheter Indwelling Catheter ABP, PAP, CO, CI - Last Documented Arterial Blood Pressure 114/62 - Exam GENERAL: The patient is intubated and sedated HEENT: Pupils are round and equally reacting to light. EOMI. No scleral icterus. No conjunctival pallor. Normocephalic, atraumatic. No pharyngeal erythema. No thyromegaly. CARDIOVASCULAR: S1 and S2 present. No murmurs, rubs, or gallops. PULMONARY: Chest is clear to auscultation, no wheezing or crackles. ABDOMEN: Soft, nontender, nondistended, normoactive bowel sounds. No palpable organomegaly. MUSCULOSKELETAL: No joint swelling or deformity. EXTREMITIES: No cyanosis, clubbing, or pedal edema. NEUROLOGICAL: Gross neurological examination did not reveal any focal deficits. SKIN: No rashes. no petechiae. - Labs CBC & Chem 7: 08/31/20 03:51 08/31/20 03:51 Labs: Abnormal Lab Results - Last 24 Hours (Table) 08/30/20 08/30/20 08/31/20 Range/Units 18:22 23:42 03:51 WBC 20.6 H (3.8-10.6) k/uL RBC 2.62 L (3.80-5.40) m/uL Hgb 7.3 L (11.4-16.0) gm/dL Hct 22.7 L (34.0-46.0) % RDW 19.0 H (11.5-15.5) % Neutrophils # 16.7 H (1.3-7.7) k/uL ABG O2 Saturation (94-97) % Carbon Dioxide (22-30) mmol/L BUN (7-17) mg/dL Creatinine (0.52-1.04) mg/dL Glucose (74-99) mg/dL POC Glucose (mg/dL) 132 H 141 H (75-99) mg/dL Calcium (8.4-10.2) mg/dL 08/31/20 08/31/20 08/31/20 Range/Units 03:51 04:43 06:48 WBC (3.8-10.6) k/uL RBC (3.80-5.40) m/uL Hgb (11.4-16.0) gm/dL Hct (34.0-46.0) % RDW (11.5-15.5) % Neutrophils # (1.3-7.7) k/uL ABG O2 Saturation 97.6 H (94-97) % Carbon Dioxide 21 L (22-30) mmol/L BUN 66 H (7-17) mg/dL Creatinine 5.21 H (0.52-1.04) mg/dL Glucose 129 H (74-99) mg/dL POC Glucose (mg/dL) 112 H (75-99) mg/dL Calcium 8.0 L (8.4-10.2) mg/dL Microbiology - Last 24 Hours (Table) 08/29/20 12:00 Blood Culture - Preliminary Blood No Growth after 24 hours 08/17/20 10:36 Fungal Culture - Preliminary Bronchoalviolar Lavage - Left 08/26/20 09:00 Fungal Culture - Preliminary Bronchoalviolar Lavage - Left Liliana albicans Assessment and Plan Assessment: Acute hypoxic respiratory failuresecondary to pneumonia. patient remains intubated and mechanically ventilated.S/p bronchoscopy due to recurrent mucous plugs and left side opacity. Sepsis, secondary to Streptococcal pneumonia. C. diff colitis Acute GI bleed status post EGD showing gastric ulcer. Status post clipping Paroxysmal atrial fibrillation with RVR Cardiomyopathy, unknown if ischemic or nonischemic, EF 30-35% Metabolic encephalopathy secondary to above Severe pulmonary hypertension Acute kidney injury Secondary to ATN currently requiring hemodialysis History of asthma Hypothyroidism Morbid obesity with a BMI 56.3 Plan: This is a 55 years old female who presents with multiple protocol problems as out. Continue with ICU management. Pulmonary/critical care team on the case, vent management as per pulmonary team. Continue with broad-spectrum antibiotic with daptomycin, and axes and oral vancomycin as per ID team recommendation. Continue Cardizem drip. Continue with hemodialysis as per nephrology team. Continue with IV Protonix. Surgery team for PEG tube placement and tracheostomy Labs and medication were reviewed.. Continue same treatment. Continue with symptomatic treatment. Resume home medication. Monitor lytes and vitals. DVT and GI prophylaxis. Further recommendationsas per clinical course of the patient DVT prophylaxis: No heparin remain in view old Lead GI Prophylaxis: Ppi Prognosis is guarded
--- NOTE | 2020-08-31 22:23 | PN ---
PROGRESS NOTE DATE OF SERVICE: 08/31/2020 REASON FOR FOLLOWUP: 1. C difficile colitis. 2. Oropharyngeal candidiasis. INTERVAL HISTORY: The patient did have a low-grade temperature of 99.9 around midnight. The patient has been afebrile since then. The patient is hemodynamically stable, currently not requiring pressor support. FiO2 is stable at 40%. No significant purulent secretions throughout the ET. have diarrhea. PHYSICAL EXAMINATION: Blood pressure 120/60 with a pulse of 86, temperature 97.8. She is 99% on 40% FiO2. General description is a middle-aged female intubated on the vent. RESPIRATORY SYSTEM: Unlabored breathing with decreased breath sounds at the base. No wheeze. HEART: S1, S2. Regular rate and rhythm. ABDOMEN: Soft. Mildly distended. No guarding or rigidity. LABS: Hemoglobin is 7, white count down to 20.6 from yesterday of 28.3. BUN of 66, creatinine 5.21. Bronchoalveolar lavage is showing Liliana albicans. Blood culture from 08/29 has been negative so far. DIAGNOSTIC IMPRESSION AND PLAN: 1. Patient with aspiration pneumonia. Sputum was Streptococcus pneumoniae, adequately treated with 2 weeks of antibiotic therapy. 2. Patient now with complicated Clostridium difficile colitis, covered with oral vancomycin down the PEG tube; to continue. 3. Patient with oropharyngeal candidiasis, covered with Eraxis . 4. Patient with a new fever, concern for possible line-related sepsis. Blood culture so far negative. Currently covered with daptomycin. If the cultures remain negative, daptomycin will be discontinued. MMODL / IJN: [id number] /
[2020-09-01] MEDS: INSULIN ASPART (NovoLOG) 100 UNIT/ML VIAL SQ SCH ×4 (00:03→18:16)
[2020-09-01] MEDS: IPRATROPIUM-ALBUTEROL 3 ML NEB INHALATION SCH ×7 (00:07→23:26)
[2020-09-01 00:13] LABS: Glucose,Whole Blood 121 mg/dL (75-99)
[2020-09-01] MEDS: HYDROmorphone 1 MG/ML 1 ML SYRINGE IVP PRN (00:14)
[2020-09-01] MEDS: VANCOMYCIN ORAL SOLUTION 250 MG/5 ML BOTTLE PO SCH ×4 (01:38→18:14)
[2020-09-01] MEDS: DILTIAZEM 125 MG in SODIUM CHLORIDE 0.9% 100 ML IV SCH (03:59)
[2020-09-01 04:23] LABS: Anisocytosis Slight; HCT 23.2 % (34.0-46.0); HGB 7.4 gm/dL (11.4-16.0); Hypochromasia Slight; MCH 27.7 pg (25.0-35.0); MCHC 31.7 g/dL (31.0-37.0); MCV 87.5 fL (80.0-100.0); Mean Platelet Volume 7.7; Platelet Count 348 k/uL (150-450); Poikilocytosis Slight; RBC 2.66 m/uL (3.80-5.40)
[2020-09-01 04:29] LABS: Calcium 7.8 mg/dL (8.4-10.2); Potassium 4.6 mmol/L (3.5-5.1)
[2020-09-01 04:47] LABS: ABG Base Excess -5.8 mmol/L; ABG HCO3 20 mmol/L (21-25); ABG Oxygen Saturation 98.8 % (94-97); ABG PCO2 37 mmHg (35-45); ABG PH 7.34 (7.35-7.45); ABG PO2 108 mmHg (83-108); ABG TCO2 21 mmol/L (19-24); Allen Test Performed? Yes
[2020-09-01 05:02] LABS: Lymphocytes # (M) 1.14 k/uL (1.0-4.8); Monocytes # (M) 1.14 k/uL (0-1.0); Neutrophils # (M) 16.91 k/uL (1.3-7.7); Neutrophils % (M) 89 %; Nucleated Red Blood Cells 2 /100 WBC (0-0); Polychromasia Present; Total Cells Counted 200
[2020-09-01] MEDS ORDERED: AMIODARONE 360 MG in DEXTROSE 5% IN WATER 200 ML IV ONE ×2 (08:02)
[2020-09-01] MEDS ORDERED: DEXTROSE 5% IN WATER 100 ML with AMIODARONE 150 MG IV ONE (08:02)
[2020-09-01] MEDS: NOREPINEPHRINE 8 MG in SODIUM CHLORIDE 0.9% 250 ML IV SCH (08:07)
[2020-09-01] MEDS: PARoxetine 20 MG TAB PO SCH (08:40)
[2020-09-01] MEDS: CALCIUM ACETATE 667 MG TAB PO SCH ×3 (08:41→18:16)
[2020-09-01] MEDS: LEVOTHYROXINE 100 MCG TAB PO SCH (08:41)
[2020-09-01] MEDS: METOPROLOL TARTRATE 25 MG TAB PO SCH ×2 (08:41→20:45)
[2020-09-01] MEDS: CHLORHEXIDINE GLUCONATE 15 ML CUP MUCOUS MEM SCH ×2 (08:41→20:45)
[2020-09-01] MEDS: PANTOPRAZOLE 40 MG/10 ML VIAL IVP SCH (08:44)
[2020-09-01] MEDS: ERGOCALCIFEROL 50,000 UNIT CAP PO SCH (08:44)
[2020-09-01] MEDS ORDERED: CISATRACURIUM 2 MG/ML 5 ML VIAL IV ONE (08:58)
[2020-09-01] MEDS: ANIDULAFUNGIN 100 MG in SODIUM CHLORIDE 0.9% 100 ML IVPB SCH (09:05)
[2020-09-01] MEDS: FORMOTEROL FUMARATE 20 MCG/2 ML NEBU INHALATION SCH ×2 (09:07→19:45)
[2020-09-01] MEDS: BUDESONIDE 1 MG/2 ML NEBU INHALATION SCH ×2 (09:07→19:44)
[2020-09-01] MEDS: fentaNYL (PF) 1,000 MCG in SODIUM CHLORIDE 0.9% 80 ML IV SCH (09:24)
[2020-09-01] MEDS: CISATRACURIUM 200 MG in SODIUM CHLORIDE 0.9% 180 ML IV SCH (09:25)
[2020-09-01] MEDS: LACTATED RINGERS 1,000 ML IV SCH (09:43)
--- NOTE | 2020-09-01 10:01 | XR ---
EXAMINATION TYPE: XR chest 1V portable DATE OF EXAM: 09/01/2020 CLINICAL HISTORY: ICU management . TECHNIQUE: Portable semiupright view of the chest. COMPARISON: 03/19/2017 CT chest. 08/31/2020 chest radiograph FINDINGS: Tracheostomy tube overlies the tracheal air column. Left PICC unchanged. Enteric tube with nonvisualization of distal tip. Silhouetting of the left hemidiaphragm and left basilar opacity rede monstrated. No pneumothorax. IMPRESSION: Unchanged radiographic appearance of the chest.
--- NOTE | 2020-09-01 10:22 | P.PN ---
Subjective Progress Note Date: 09/01/20 CHIEF COMPLAINT: Shortness of breath HISTORY OF PRESENT ILLNESS: Patient is status post tracheostomy placement for respiratory failure. Patient unable to have PEG tube placed. During EGD suitable light reflux on anterior abdominal wall could not be visualized. Her tube feedings have been restarted. Patient had replaced back on amiodarone and sedation. She remains in the ICU. She had a temporal 100.5. WBC is 19 hemoglobin 7.4 PHYSICAL EXAM: VITAL SIGNS: Reviewed. GENERAL: Well-developed in no acute distress. HEENT: No sclera icterus. Extraocular movements grossly intact. Moist buccal mucosa. Head is atraumatic, normocephalic. ABDOMEN: Soft. Nondistended. Nontender. NEUROLOGIC: Alert and oriented. Cranial nerves II through XII grossly intact. ASSESSMENT: 1. Acute hypoxic and hypercapnic respiratory failure status post tracheostomy 2. Severe protein calorie malnutrition 3. Sepsis shock secondary to pneumonia 4. Acute kidney injury currently hemodialysis dependent. Nephrology following 5. Paroxysmal atrial fibrillation 6. Upper GI bleed status post EGD with clipping of gastric ulcer just distal to the GE junction along the lesser curvature 7. C. diff positive PLAN: -Continue supportive care -Resume tube feedings Physician Supermarket Manager note has been reviewed by physician. Signing provider agrees with the documented findings, assessment, and plan of care. Objective - Vital Signs Vital signs: Vital Signs Temp 98.0 F 09/01/20 08:47 Pulse 90 09/01/20 09:17 Resp 20 09/01/20 09:00 BP 90/67 09/01/20 08:47 Pulse Ox 95 09/01/20 09:00 Intake & Output 08/31/20 09/01/20 09/01/20 18:59 06:59 18:59 Intake Total 616.817 4934.481 73 Output Total 6920 900 Balance -6099.016 319.481 73 Weight 149.3 kg Intake: IV 506 143 26 0.9 120 110 20 Pressure Bag 36 33 6 Intake, IV Titration 314.984 563.481 Amount Diltiazem 125 mg In 107.500 121.5 Sodium Chloride 0.9% 100 ml @ 7.5 MG/HR 7.5 mls/hr IV .[id number] [facility] Rx#: [id number] Norepinephrine 8 mg In 258.000 Sodium Chloride 0.9% 250 ml @ 0.05 MCG/KG/MIN 14. 445 mls/hr IV .[id number] [facility] Rx#:[id number] Norepinephrine 8 mg In 7.484 Sodium Chloride 0.9% 250 ml @ 0.05 MCG/KG/MIN 14. 967 mls/hr IV .[id number] [facility] Rx#:[id number] propofoL 1,000 mg In 200 183.981 Empty Bag 1 bag @ Titrate IV .Q0M [facility] Rx#: [id number] Tube Feeding 0 423 47 Other 90 Output: Urine 10 0 Stool 900 900 Hemodialysis 3000 Estimated Blood Loss 10 Other 3000 Other: Voiding Method Indwelling Catheter Indwelling Catheter ABP, PAP, CO, CI - Last Documented Arterial Blood Pressure 91/65 - Labs CBC & Chem 7: 09/01/20 04:03 09/01/20 04:03 Labs: Abnormal Lab Results - Last 24 Hours (Table) 08/31/20 09/01/20 09/01/20 Range/Units 18:24 00:01 04:03 WBC 19.0 H (3.8-10.6) k/uL RBC 2.66 L (3.80-5.40) m/uL Hgb 7.4 L (11.4-16.0) gm/dL Hct 23.2 L (34.0-46.0) % RDW 20.0 H (11.5-15.5) % Neutrophils # (Manual) 16.91 H (1.3-7.7) k/uL Monocytes # (Manual) 1.14 H (0-1.0) k/uL Nucleated RBCs 2 H (0-0) /100 WBC ABG pH (7.35-7.45) ABG HCO3 (21-25) mmol/L ABG O2 Saturation (94-97) % Chloride (98-107) mmol/L Carbon Dioxide (22-30) mmol/L BUN (7-17) mg/dL Creatinine (0.52-1.04) mg/dL Glucose (74-99) mg/dL POC Glucose (mg/dL) 105 H 121 H (75-99) mg/dL Calcium (8.4-10.2) mg/dL 09/01/20 09/01/20 Range/Units 04:03 04:42 WBC (3.8-10.6) k/uL RBC (3.80-5.40) m/uL Hgb (11.4-16.0) gm/dL Hct (34.0-46.0) % RDW (11.5-15.5) % Neutrophils # (Manual) (1.3-7.7) k/uL Monocytes # (Manual) (0-1.0) k/uL Nucleated RBCs (0-0) /100 WBC ABG pH 7.34 L (7.35-7.45) ABG HCO3 20 L (21-25) mmol/L ABG O2 Saturation 98.8 H (94-97) % Chloride 110 H (98-107) mmol/L Carbon Dioxide 20 L (22-30) mmol/L BUN 58 H (7-17) mg/dL Creatinine 4.81 H (0.52-1.04) mg/dL Glucose 135 H (74-99) mg/dL POC Glucose (mg/dL) (75-99) mg/dL Calcium 7.8 L (8.4-10.2) mg/dL Microbiology - Last 24 Hours (Table) 08/17/20 10:36 Acid Fast Bacilli Smear - Final Bronchoalviolar Lavage - Left Acid Fast Bacilli Culture - Preliminary 08/29/20 12:00 Blood Culture - Preliminary Blood No Growth after 24 hours 08/17/20 10:36 Fungal Culture - Preliminary Bronchoalviolar Lavage - Left 08/26/20 09:00 Fungal Culture - Preliminary Bronchoalviolar Lavage - Left Liliana albicans
--- NOTE | 2020-09-01 10:50 | P.PN ---
Subjective Progress Note Date: 09/01/20 Principal diagnosis: Acute GI bleed This is a 55-year-old female who was admitted in the early part of August with complaints of shortness of breath and weakness and ultimately acute respiratory failure who is presently intubated and sedated on a ventilator in the ICU. The patient remains in droplet isolation. During the course of her hospitalization she developed acute kidney injury was started on hemodialysis week ago the patient's been on Eliquis for atrial fibrillation which was on hold for permacath placement. She had 2 episodes of black tarry stools, a FMS was placed which she continued to have black tarry stools. Her hemoglobin had dropped from 7.8-6.0 and she is status post 2 units blood transfusion. She underwent an upper endoscopy with findings that included a proximal gastric ulcer with active bleeding status post Endo Clip placement and a small hiatal hernia. Yesterday the patient was scheduled for a tracheostomy and PEG tube placement by surgery, however they were unable to place the PEG tube. An orogastric tube was placed. She is not having any further episodes of rectal bleeding or blood in the stool. Her hemoglobin is stable today at 7.4. She remains sedated and intubated on mechanical ventilation. She had a new onset of low grade fever through the night. Infectious disease remains on consult. Objective - Vital Signs Vital signs: Vital Signs Temp 98.0 F 09/01/20 08:47 Pulse 90 09/01/20 09:17 Resp 20 09/01/20 09:00 BP 90/67 09/01/20 08:47 Pulse Ox 95 09/01/20 09:00 Intake & Output 08/31/20 09/01/20 09/01/20 18:59 06:59 18:59 Intake Total 772.231 4069.481 73 Output Total 6920 900 Balance -6099.016 319.481 73 Weight 149.3 kg Intake: IV 506 143 26 0.9 120 110 20 Pressure Bag 36 33 6 Intake, IV Titration 314.984 563.481 Amount Diltiazem 125 mg In 107.500 121.5 Sodium Chloride 0.9% 100 ml @ 7.5 MG/HR 7.5 mls/hr IV .[id number] [facility] Rx#: [id number] Norepinephrine 8 mg In 258.000 Sodium Chloride 0.9% 250 ml @ 0.05 MCG/KG/MIN 14. 445 mls/hr IV .[id number] [facility] Rx#:[id number] Norepinephrine 8 mg In 7.484 Sodium Chloride 0.9% 250 ml @ 0.05 MCG/KG/MIN 14. 967 mls/hr IV .[id number] [facility] Rx#:[id number] propofoL 1,000 mg In 200 183.981 Empty Bag 1 bag @ Titrate IV .Q0M [facility] Rx#: [id number] Tube Feeding 0 423 47 Other 90 Output: Urine 10 0 Stool 900 900 Hemodialysis 3000 Estimated Blood Loss 10 Other 3000 Other: Voiding Method Indwelling Catheter Indwelling Catheter ABP, PAP, CO, CI - Last Documented Arterial Blood Pressure 91/65 - Exam General appearance: The patient is sedated and on mechanical ventilation. Physical examination as per attending physician. - Labs CBC & Chem 7: 09/01/20 04:03 09/01/20 04:03 Labs: Abnormal Lab Results - Last 24 Hours (Table) 08/31/20 09/01/20 09/01/20 Range/Units 18:24 00:01 04:03 WBC 19.0 H (3.8-10.6) k/uL RBC 2.66 L (3.80-5.40) m/uL Hgb 7.4 L (11.4-16.0) gm/dL Hct 23.2 L (34.0-46.0) % RDW 20.0 H (11.5-15.5) % Neutrophils # (Manual) 16.91 H (1.3-7.7) k/uL Monocytes # (Manual) 1.14 H (0-1.0) k/uL Nucleated RBCs 2 H (0-0) /100 WBC ABG pH (7.35-7.45) ABG HCO3 (21-25) mmol/L ABG O2 Saturation (94-97) % Chloride (98-107) mmol/L Carbon Dioxide (22-30) mmol/L BUN (7-17) mg/dL Creatinine (0.52-1.04) mg/dL Glucose (74-99) mg/dL POC Glucose (mg/dL) 105 H 121 H (75-99) mg/dL Calcium (8.4-10.2) mg/dL 09/01/20 09/01/20 Range/Units 04:03 04:42 WBC (3.8-10.6) k/uL RBC (3.80-5.40) m/uL Hgb (11.4-16.0) gm/dL Hct (34.0-46.0) % RDW (11.5-15.5) % Neutrophils # (Manual) (1.3-7.7) k/uL Monocytes # (Manual) (0-1.0) k/uL Nucleated RBCs (0-0) /100 WBC ABG pH 7.34 L (7.35-7.45) ABG HCO3 20 L (21-25) mmol/L ABG O2 Saturation 98.8 H (94-97) % Chloride 110 H (98-107) mmol/L Carbon Dioxide 20 L (22-30) mmol/L BUN 58 H (7-17) mg/dL Creatinine 4.81 H (0.52-1.04) mg/dL Glucose 135 H (74-99) mg/dL POC Glucose (mg/dL) (75-99) mg/dL Calcium 7.8 L (8.4-10.2) mg/dL Microbiology - Last 24 Hours (Table) 08/17/20 10:36 Acid Fast Bacilli Smear - Final Bronchoalviolar Lavage - Left Acid Fast Bacilli Culture - Preliminary 08/29/20 12:00 Blood Culture - Preliminary Blood No Growth after 24 hours 08/17/20 10:36 Fungal Culture - Preliminary Bronchoalviolar Lavage - Left 08/26/20 09:00 Fungal Culture - Preliminary Bronchoalviolar Lavage - Left Liliana albicans Assessment and Plan (1) Acute gastrointestinal bleeding Narrative/Plan: This a 55-year-old white female who had acute onset of black tarry stools that started 3 days ago. She had a drop in her hemoglobin from 7.6-6 requiring 2 units of blood transfusion. She was recently started on Eliquis for atrial fibrillation which has been on hold. She is status post upper endoscopy findings that included a gastric ulcer with active bleeding status post Endo Clip. Her hemoglobin remained stable today at 7.4 without any melena today. Current Visit: Yes Status: Acute Code(s): K92.2 - GASTROINTESTINAL HEMORRHAGE, UNSPECIFIED SNOMED Code(s): 01989083 (2) Gastric ulcer with hemorrhage Current Visit: Yes Status: Acute Code(s): K25.4 - CHRONIC OR UNSPECIFIED GASTRIC ULCER WITH HEMORRHAGE SNOMED Code(s): 55385672 (3) Morbid obesity Current Visit: Yes Status: Acute Code(s): E66.01 - MORBID (SEVERE) OBESITY DUE TO EXCESS CALORIES SNOMED Code(s): 314847528 (4) Acute respiratory failure with hypoxia Narrative/Plan: Acute respiratory failure who is presently on mechanical ventilation and sedated secondary to left lower lobe pneumonia and sepsis. Patient treated with broad- spectrum antibiotics. Current Visit: Yes Status: Acute Code(s): J96.01 - ACUTE RESPIRATORY FAILURE WITH HYPOXIA SNOMED Code(s): 98346934 Plan: 1. Continue supportive care 2. Continue Protonix 40 mg twice daily 3. Repeat CBC in morning, transfuse if hemoglobin less than 7 4. Patient is status post upper endoscopy 5. The patient is status post tracheostomy placement 6. May resume Lovenox from a GI standpoint 7. May proceed with tube feedings if no further drop in hemoglobin We will be on standby, if any further need from gastroenterology services please do not hesitate to call us. The impression and plan of care has been dictated as directed. I performed a history and examination of this patient, discussed the same with the dictator. I agree with the dictator's note ,documented as a scribe. Any additional findings or plans will be noted.
[2020-09-01 11:47] LABS: Glucose,Whole Blood 159 mg/dL (75-99)
--- NOTE | 2020-09-01 12:03 | P.PN ---
Subjective Progress Note Date: 09/01/20 Principal diagnosis: Acute hypoxic respiratory failure and acute streptococcal pneumonia. On 08/30/2020, the patient remains sedated on propofol and she is calm and comfortable. She remains on a mechanical ventilator. She is intubated by #7.5 orotracheal tube. She is on assist control mode at the rate of 20 with a tidal volume of 450 and FiO2 of 40% with a PEEP of 5. Blood gas showed a pH of 7.37 with a pCO2 of 38 and pO2 97. The chest x-ray shows partial reexpansion of the left upper lobe. There is Still atelectasis of left lower lobe post bronchoscopy and therapeutic it was suctioning and removal of mucous plugs. The patient is having significant amount of mucous plugs. I did a fourth bronchoscopy today where I was able to utilize a regular bronchoscope and I was able to evacuate all of the mucous plugs without any major difficulties and by the completion of today's procedure, the patient taken airways to the left upper lobe, lingula and left lower lobe. The patient meanwhile had an EGD done by gastroenterology. EGD showed a gastric ulcer that was ligated and clipped. This was a 1 cm proximal gastric ulcer distal to the GE junction along the lesser curvature of the stomach. There was also a small hiatal hernia. Noted the patient is off tube feeds pH is not showing any signs of bleeding patient is also off articulation for now. She has requiring boluses levo fed at a dose of 0.04 mg per KG per minute. IV fluids at KVO. The patient is receiving periodic hemodialysis per nephrology will remain to be on the case. My plan was to proceed with a tracheostomy and PEG tube insertion this patient and for that reason general surgery has been consulted for insertion of a tracheostomy and a PEG tube insertion of a later stage. The white cell count is 28. Hemoglobin was at 7.8. The renal function shows a BUN of 76 with a creatinine of 5.36. She remains on IV Unasyn. She did receive packed RBC blood transfusion and hemoglobin has been stable at 7.8. The plan is also to proceed with a hemodialysis ultrafiltration of 3 L of long as the patient is able to tolerate. Reevaluated today on 08/31/20, patient remains in the ICU, intubated and mechanically ventilated. Her ventilator settings are volume control plus of 450 FiO2 40% rate is 20 PEEP is 5. ABG showed a pO2 of 92 pCO2 of 37 pH of 7.37. Chest x-ray which I reviewed earlier this morning showed complete collapse of the left lung suggestive of endobronchial mucous plug. Hence bronchoscopy was performed, and the left lung was lavaged. Patient is scheduled to undergo trac heostomy and PEG tube placement today. Patient is on Cardizem drip at 10 mg per hour, propofol at 55 mcg/kg/m, she has a PICC line in the left brachial area, and she has a right radial arterial line. Again she scheduled to have tracheostomy and PEG tube today. Patient is sedated on propofol, looking at the previous notes by my partners, this is today the fifth bronchoscopy to clear mucous plugs from the left lung. Patient also had previous EGD and gastric ulcer was noted proximally. This was ligated and clipped by gastroenterology. Patient remains on hemodialysis. Nephrology remains on the case. She remains on Unasyn for her pneumonia. WBC count today is 20.6 hemoglobin is 7.3. Lindsey telets are normal. Electrolytes are normal. BUN is 66 creatinine is 5.2 1. patient is not requiring any pressors, she is hemodynamically stable. Her enteral feeding is presently on hold, will resume this tomorrow after placement of the PEG tube likely today. Patient was reevaluated today on 08/28/20, remains intubated and mechanically ventilated, however the patient seems to be extremely agitated, none synchronous with mechanical ventilation, try to increase her propofol, did not seem to help much, placed on fentanyl, did not improve her pulmonary status, although her chest x-ray is showing significant improvement but continues to have significant left lower lobe consolidation, left lung seems to be better today compared to yesterday. Patient was placed on Nimbex drip, her ventilator settings are volume control plus, rate of 20 tidal volume is 450 FiO2 is 40% and PEEP is 5. ABG this morning showed a pO2 of 108 pCO2 of 37 pH of 7.36. Patient is on multiple drips including norepinephrine at 0.15 mcg/kg/m, she is also on propofol at 55 mcg/kg/m and this was increased up to 75. She was on Cardizem which I have discontinued and recommended patient to go on amiodarone seems to be lowering her blood pressure without significant effect on her heart rate. And I have consulted cardiology to evaluate. WBC count today is high at 19.0 hemoglobin is 7.4. Electrolytes are normal however her BUN is 58 creatinine 4.81, and the patient is undergoing dialysis again today. Chest x-ray showed better aeration of the left upper lobe and left midlung, continues to have left basilar consolidation. Objective - Vital Signs Vital signs: Vital Signs Temp 98.0 F 09/01/20 08:47 Pulse 120 H 09/01/20 11:15 Resp 30 H 09/01/20 11:15 BP 90/67 09/01/20 08:47 Pulse Ox 93 L 09/01/20 11:15 Intake & Output 08/31/20 09/01/20 09/01/20 18:59 06:59 18:59 Intake Total 917.784 7397.481 568.002 Output Total 6920 900 910 Balance -6099.016 319.481 -341.998 Weight 149.3 kg Intake: IV 506 143 165 0.9 120 110 50 Anidulafungin 100 mg In 100 Sodium Chloride 0.9% 100 ml @ 84 mls/hr IVPB DAILY [facility] Rx#:[id number] Pressure Bag 36 33 15 Intake, IV Titration 314.984 563.481 356.002 Amount Diltiazem 125 mg In 107.500 121.5 Sodium Chloride 0.9% 100 ml @ 7.5 MG/HR 7.5 mls/hr IV .[id number] [facility] Rx#: [id number] Norepinephrine 8 mg In 258.000 156.002 Sodium Chloride 0.9% 250 ml @ 0.05 MCG/KG/MIN 14. 445 mls/hr IV .[id number] [facility] Rx#:[id number] Norepinephrine 8 mg In 7.484 Sodium Chloride 0.9% 250 ml @ 0.05 MCG/KG/MIN 14. 967 mls/hr IV .[id number] [facility] Rx#:[id number] propofoL 1,000 mg In 200 183.981 200.000 Empty Bag 1 bag @ Titrate IV .Q0M [facility] Rx#: [id number] Tube Feeding 0 423 47 Other 90 Output: Urine 10 0 10 Stool 900 900 900 Hemodialysis 3000 Estimated Blood Loss 10 Other 3000 Other: Voiding Method Indwelling Catheter Indwelling Catheter Indwelling Catheter ABP, PAP, CO, CI - Last Documented Arterial Blood Pressure 99/85 - Exam Physical Exam: Revealed a 55-year-old female morbidly obese, on propofol, fully sedated. Noted to be a synchronous with mechanical ventilation initially until she was given Nimbex. Head: Atraumatic normocephalic. Tracheostomy tube is intact. EENT: PERRLA, EOMI, extremely dry mucous membranes noted. [Neck is supple.] [No neck masses.] [No thyromegaly.] [No JVD.] Chest: Crackles and rhonchi noted diminished breath sound on the left side. Cardiac Exam: Distant S1 and S2, no S3 gallop. No murmur. Abdomen: Morbidly obese, [Soft, nontender, no megaly, no rebound, no guarding, normal bowel sounds.] Extremities: [No clubbing, 1+ bipedal edema, no cyanosis.] Diminished pulses bilaterally. Left brachial PICC line is noted, and the right radial arterial line Neurological Exam: Sedated, on propofol, had to be given fentanyl and added Nimbex since the patient was extremely a synchronous with mechanical ventilation. Psychiatric: Could not be assessed. Skin: No rashes. - Labs CBC & Chem 7: 09/01/20 04:03 09/01/20 04:03 Labs: Abnormal Lab Results - Last 24 Hours (Table) 08/31/20 09/01/20 09/01/20 Range/Units 18:24 00:01 04:03 WBC 19.0 H (3.8-10.6) k/uL RBC 2.66 L (3.80-5.40) m/uL Hgb 7.4 L (11.4-16.0) gm/dL Hct 23.2 L (34.0-46.0) % RDW 20.0 H (11.5-15.5) % Neutrophils # (Manual) 16.91 H (1.3-7.7) k/uL Monocytes # (Manual) 1.14 H (0-1.0) k/uL Nucleated RBCs 2 H (0-0) /100 WBC ABG pH (7.35-7.45) ABG HCO3 (21-25) mmol/L ABG O2 Saturation (94-97) % Chloride (98-107) mmol/L Carbon Dioxide (22-30) mmol/L BUN (7-17) mg/dL Creatinine (0.52-1.04) mg/dL Glucose (74-99) mg/dL POC Glucose (mg/dL) 105 H 121 H (75-99) mg/dL Calcium (8.4-10.2) mg/dL 09/01/20 09/01/20 09/01/20 Range/Units 04:03 04:42 11:46 WBC (3.8-10.6) k/uL RBC (3.80-5.40) m/uL Hgb (11.4-16.0) gm/dL Hct (34.0-46.0) % RDW (11.5-15.5) % Neutrophils # (Manual) (1.3-7.7) k/uL Monocytes # (Manual) (0-1.0) k/uL Nucleated RBCs (0-0) /100 WBC ABG pH 7.34 L (7.35-7.45) ABG HCO3 20 L (21-25) mmol/L ABG O2 Saturation 98.8 H (94-97) % Chloride 110 H (98-107) mmol/L Carbon Dioxide 20 L (22-30) mmol/L BUN 58 H (7-17) mg/dL Creatinine 4.81 H (0.52-1.04) mg/dL Glucose 135 H (74-99) mg/dL POC Glucose (mg/dL) 159 H (75-99) mg/dL Calcium 7.8 L (8.4-10.2) mg/dL Microbiology - Last 24 Hours (Table) 08/17/20 10:36 Acid Fast Bacilli Smear - Final Bronchoalviolar Lavage - Left Acid Fast Bacilli Culture - Preliminary 08/29/20 12:00 Blood Culture - Preliminary Blood No Growth after 24 hours 08/17/20 10:36 Fungal Culture - Preliminary Bronchoalviolar Lavage - Left 08/26/20 09:00 Fungal Culture - Preliminary Bronchoalviolar Lavage - Left Liliana albicans Assessment and Plan Assessment: Impression: Acute hypoxic and hypercapnic respiratory failure secondary to pneumonia, this is mostly streptococcal pneumonia. Recurrent collapse of the left lung secondary to mucous plugs requiring bron choscopy, patient is status post bronchoscopy 5. No need for bronchoscopy today. Acute kidney injury currently hemodialysis dependent. Upper GI bleeding requiring EGD and clipping of ulcer at the lesser curvature of the stomach. Persistent leukocytosis. Paroxysmal atrial fibrillation , poorly controlled with Cardizem, hence today the patient was started on amiodarone.. Acute metabolic, possibly drug induced encephalopathy. Acute left lower lobe pneumonia, secondary to Streptococcus pneumonia based on the sputum cultures. Sepsis and septic shock secondary to left lower lobe pneumonia Acute exacerbation of moderate persistent bronchial asthma secondary to pneumonia. Obstructive sleep apnea syndrome. Obesity/hypoventilation syndrome. Type 2 diabetes. History of depression and generalized anxiety disorder. History of hypothyroidism. Status post tracheostomy on 08/31/20, could not undergo PEG feeding tube placement. Recommendation: Continue ventilatory support, Continue nutritional support via nasogastric tube, could not have a PEG tube placed yesterday. Continue amiodarone for atrial fibrillation. And discontinue Cardizem. Continue GI and DVT prophylaxis. Increase propofol, added fentanyl, and added Nimbex to be able to adequately ventilate the patient. Continue GI and DVT prophylaxis. Continue hemodialysis. Continue close monitoring of all her labs including electrolytes and renal profile. Continue daily x-rays of the chest. Continue daily assessment of mental status, and daily assessment for weaning. Overall prognosis remains extremely poor and guarded, Patient is not ready for any weaning today. Remains critically ill. Critical care time is 32 minutes. Time with Patient: Greater than 30
--- NOTE | 2020-09-01 12:16 | P.PN ---
Subjective Patient is seen in follow-up for acute kidney injury. She is currently hemodialysis dependent. She is intubated, on 40% FiO2. Maintained on amiod arone drip for A. fib. Also on Levophed. Underwent tracheostomy August 31. She went into A. fib with RVR during hemodialysis and the treatment was therefore terminated. Vital signs are stable. On vasopressor support. General: The patient appeared well nourished and normally developed. HEENT: Head exam is unremarkable. Intubated. LUNGS: Breath sounds decreased. HEART: Irregular rate and rhythm. EXTREMITIES: 2+ edema. Objective - Vital Signs Vital signs: Vital Signs Temp 98.0 F 09/01/20 08:47 Pulse 120 H 09/01/20 11:15 Resp 30 H 09/01/20 11:15 BP 90/67 09/01/20 08:47 Pulse Ox 93 L 09/01/20 11:15 Intake & Output 08/31/20 09/01/20 09/01/20 18:59 06:59 18:59 Intake Total 252.612 0021.481 568.002 Output Total 6920 900 910 Balance -6099.016 319.481 -341.998 Weight 149.3 kg Intake: IV 506 143 165 0.9 120 110 50 Anidulafungin 100 mg In 100 Sodium Chloride 0.9% 100 ml @ 84 mls/hr IVPB DAILY [facility] Rx#:[id number] Pressure Bag 36 33 15 Intake, IV Titration 314.984 563.481 356.002 Amount Diltiazem 125 mg In 107.500 121.5 Sodium Chloride 0.9% 100 ml @ 7.5 MG/HR 7.5 mls/hr IV .[id number] [facility] Rx#: [id number] Norepinephrine 8 mg In 258.000 156.002 Sodium Chloride 0.9% 250 ml @ 0.05 MCG/KG/MIN 14. 445 mls/hr IV .[id number] [facility] Rx#:[id number] Norepinephrine 8 mg In 7.484 Sodium Chloride 0.9% 250 ml @ 0.05 MCG/KG/MIN 14. 967 mls/hr IV .[id number] [facility] Rx#:[id number] propofoL 1,000 mg In 200 183.981 200.000 Empty Bag 1 bag @ Titrate IV .Q0M [facility] Rx#: [id number] Tube Feeding 0 423 47 Other 90 Output: Urine 10 0 10 Stool 900 900 900 Hemodialysis 3000 Estimated Blood Loss 10 Other 3000 Other: Voiding Method Indwelling Catheter Indwelling Catheter Indwelling Catheter ABP, PAP, CO, CI - Last Documented Arterial Blood Pressure 99/85 - Labs CBC & Chem 7: 09/01/20 04:03 09/01/20 04:03 Labs: Abnormal Lab Results - Last 24 Hours (Table) 08/31/20 09/01/20 09/01/20 Range/Units 18:24 00:01 04:03 WBC 19.0 H (3.8-10.6) k/uL RBC 2.66 L (3.80-5.40) m/uL Hgb 7.4 L (11.4-16.0) gm/dL Hct 23.2 L (34.0-46.0) % RDW 20.0 H (11.5-15.5) % Neutrophils # (Manual) 16.91 H (1.3-7.7) k/uL Monocytes # (Manual) 1.14 H (0-1.0) k/uL Nucleated RBCs 2 H (0-0) /100 WBC ABG pH (7.35-7.45) ABG HCO3 (21-25) mmol/L ABG O2 Saturation (94-97) % Chloride (98-107) mmol/L Carbon Dioxide (22-30) mmol/L BUN (7-17) mg/dL Creatinine (0.52-1.04) mg/dL Glucose (74-99) mg/dL POC Glucose (mg/dL) 105 H 121 H (75-99) mg/dL Calcium (8.4-10.2) mg/dL 09/01/20 09/01/20 09/01/20 Range/Units 04:03 04:42 11:46 WBC (3.8-10.6) k/uL RBC (3.80-5.40) m/uL Hgb (11.4-16.0) gm/dL Hct (34.0-46.0) % RDW (11.5-15.5) % Neutrophils # (Manual) (1.3-7.7) k/uL Monocytes # (Manual) (0-1.0) k/uL Nucleated RBCs (0-0) /100 WBC ABG pH 7.34 L (7.35-7.45) ABG HCO3 20 L (21-25) mmol/L ABG O2 Saturation 98.8 H (94-97) % Chloride 110 H (98-107) mmol/L Carbon Dioxide 20 L (22-30) mmol/L BUN 58 H (7-17) mg/dL Creatinine 4.81 H (0.52-1.04) mg/dL Glucose 135 H (74-99) mg/dL POC Glucose (mg/dL) 159 H (75-99) mg/dL Calcium 7.8 L (8.4-10.2) mg/dL Microbiology - Last 24 Hours (Table) 08/17/20 10:36 Acid Fast Bacilli Smear - Final Bronchoalviolar Lavage - Left Acid Fast Bacilli Culture - Preliminary 08/29/20 12:00 Blood Culture - Preliminary Blood No Growth after 24 hours 08/17/20 10:36 Fungal Culture - Preliminary Bronchoalviolar Lavage - Left 08/26/20 09:00 Fungal Culture - Preliminary Bronchoalviolar Lavage - Left Liliana albicans Assessment and Plan Plan: Assessment: 1. Acute kidney injury, currently hemodialysis dependent. Etiology is ATN secondary to septic shock. Urine output 0-5 mL an hour. Diuretic unresponsive. Baseline creatinine near 1. 2. Septic shock secondary to pneumonia. Status post multiple bronchoscopies this admission with removal of mucous plugs. Maintained on antibiotics. 3. Volume overload. Improving with ultrafiltration. 4. Metabolic acidosis secondary to acute kidney injury. Stable. 5. Hypervolemic hyponatremia. Improved with ultrafiltration. 6. Hyperphosphatemia secondary to acute kidney injury Maintained on PhosLo. 7. Anemia secondary to acute GI bleed. Component of underlying renal disease. Maintained on Aranesp. Status post blood transfusion on August 29. Status post IV DDAVP. Status post EGD August 30 - gastric ulcer noted with active bleeding status post Endo Clip. 8. A. fib with RVR maintained on amiodarone drip. 9. C. diff colitis maintained on oral vancomycin. 10. Acute hypoxic gustatory failure status post tracheostomy on August 31.. Plan: Reattempt hemodialysis tomorrow. Wean FiO2 and vasopressors. Continue to monitor renal function and urine output. Patient will need a permacath placed when hemodynamically stable. Vascular surgery aware.
[2020-09-01] MEDS: ARTIFICIAL TEARS-HYPROMELLOSE DROPS 15 ML BTL BOTH EYES SCH ×3 (14:00→20:00)
[2020-09-01] MEDS: AMIODARONE 300 MG in DEXTROSE 5% IN WATER 250 ML IV SCH ×2 (14:04)
[2020-09-01 17:38] LABS: Glucose,Whole Blood 142 mg/dL (75-99)
--- NOTE | 2020-09-01 21:34 | P.PN ---
Subjective 55-year-old female patient was morbid obesity as well as multiple comorbid conditions who was admitted to the hospital with acute hypoxic respiratory failure secondary to pneumonia and she was intubated and placed on mechanical ventilation. Patient has been followed closely by pulmonary service, her lung today was completely collapsed on the left side commissioned oriented bronchoscopy as per pulmonary team with removal of the mucous plug. She remains 1 or spectrum antibiotics with Eraxis and daptomycin. For her sepsis and oral candidiasis. Also she is on oral vancomycin For C. diff colitis. Also she is on dialysis for her acute kidney injury. A GI team evaluated the patient and had endoscopy with EGD showing gastric ulcer status post clipping. Surgery team also on the case and planning for PEG tube and tracheostomy placement today. Her chest x-ray today was showing complete collapse of the left side. WBC is 20.6 K, hemoglobin 7.3. BMP is unremarkable and she has high creatinine 09/01/2020 Patient remains in the ICU in critical condition, she's intubated and on mechanical ventilation, no wheezing and a trial was done today, patient on the other side and she was agitated and the base was started. Chest x-ray showed left lower lobe consolidation. She underwent tracheostomy yesterday She is tachypneic and tachycardic and Cardizem drip was switched to amiodarone drip with cartilage team were consulted. She has leukocytosis of 19 K, slightly trending down. Daptomycin was discontinued. Patient continued to be on Eraxis and Oral vancomycin for C. diff colitis, infectious disease on the case. Creatinine elevated secondary to septic shock, she is undergoing hemodialysis per nephrology team, she will need permacath sometime later on. Prognosis remains guarded Review of systems: N/a Active Medications Generic Name Dose Route Start Last Admin Trade Name Freq PRN Reason Stop Dose Admin Albuterol/Ipratropium 3 ml 08/16/20 09:26 Ipratropium-Albuterol 3 Ml Neb INHALATION RT-Q2H PRN Shortness Of Breath Or Wheezing Albuterol/Ipratropium 3 ml 08/18/20 12:00 09/01/20 19:45 Ipratropium-Albuterol 3 Ml Neb INHALATION 3 ml RT-Q4H [facility] Administration Artificial Tears 2 drops 09/01/20 12:00 09/01/20 18:13 Artificial Tears-Hypromellose Drops 15 Ml Btl BOTH EYES 2 drops Q4HR [facility] Administration Budesonide 1 mg 08/16/20 20:00 09/01/20 19:44 Budesonide 1 Mg/2 Ml Nebu INHALATION 1 mg RT-BID [facility] Administration Calcium Acetate 667 mg 08/24/20 17:30 09/01/20 18:16 Calcium Acetate 667 Mg Tab PO 667 mg TID-W/MEALS [facility] Administration Chlorhexidine Gluconate 15 ml 08/17/20 09:00 09/01/20 20:45 Chlorhexidine Gluconate 15 Ml Cup MUCOUS MEM 15 ml BID [facility] Administration Darbepoetin Sammy 40 mcg 08/28/20 16:00 08/28/20 16:37 Darbepoetin Sammy 40 Mcg/0.4 Ml Syringe SQ 40 mcg Q7D [facility] Administration Ergocalciferol 50,000 unit 08/21/20 09:00 09/01/20 08:44 Ergocalciferol 50,000 Unit Cap PO Not Given DAILY [facility] Formoterol Fumarate 20 mcg 08/16/20 20:00 09/01/20 19:45 Formoterol Fumarate 20 Mcg/2 Ml Nebu INHALATION 20 mcg RT-BID [facility] Administration Hydromorphone HCl 1 mg 08/21/20 10:45 09/01/20 00:14 Hydromorphone 1 Mg/Ml 1 Ml Syringe IVP 1 mg Q1HR PRN Administration Maintain Sync w/ vent or Pain Anidulafungin 100 mg/ Sodium 100 mls @ 84 mls/hr 08/23/20 09:00 09/01/20 09:05 Chloride IVPB 84 mls/hr DAILY [facility] Administration Propofol 1,000 mg/ IV Solution 100 mls @ 0 mls/hr 08/29/20 20:00 09/01/20 1 8:14 IV 50 mcg/kg/min .Q0M [facility] 44.79 mls/hr Administration Protocol Titrate Lactated Ringer's 1,000 mls @ 20 mls/hr 08/31/20 10:18 09/01/20 09:43 Lactated Ringers IV Not Given .Q24H [facility] Norepinephrine Bitartrate 8 mg 258 mls @ 14.445 mls/hr 08/31/20 10:18 09/01/20 20:49 / Sodium Chloride IV Infused .[id number] [facility] Titration Protocol 0.05 MCG/KG/MIN Amiodarone HCl 300 mg/ 250 mls @ 25 mls/hr 09/01/20 14:03 09/01/20 14:04 Dextrose/Water IV 09/02/20 08:02 0.5 mg/min .Q10H [facility] 25 mls/hr Administration Protocol 0.5 MG/MIN Fentanyl Citrate 1,000 mcg/ 100 mls @ 0 mls/hr 09/01/20 08:45 09/01/20 09:24 Sodium Chloride IV 0.2 mcg/kg/hr .Q0M [facility] 2.986 mls/hr Administration Protocol Per Protocol Cisatracurium Besylate 200 mg/ 200 mls @ 8.958 mls/hr 09/01/20 09:15 09/01/20 09:25 Sodium Chloride IV 1 mcg/kg/min .[id number] [facility] 8.958 mls/hr Administration Protocol 1 MCG/KG/MIN Insulin Aspart 0 unit 08/17/20 00:00 09/01/20 18:16 Insulin Aspart (Novolog) 100 Unit/Ml Vial SQ 2 unit Q6H [facility] Administration Protocol Levothyroxine Sodium 200 mcg 08/16/20 14:15 09/01/20 08:41 Levothyroxine 100 Mcg Tab PO 200 mcg DAILY@0630 [facility] Administration Metoprolol Tartrate 25 mg 08/23/20 09:00 09/01/20 20:45 Metoprolol Tartrate 25 Mg Tab PO 25 mg BID [facility] Administration Naloxone HCl 0.2 mg 08/15/20 22:05 Naloxone 0.4 Mg/Ml 1 Ml Vial IV Q2M PRN Opioid Reversal Pantoprazole Sodium 40 mg 08/17/20 09:00 09/01/20 08:44 Pantoprazole 40 Mg/10 Ml Vial IVP 40 mg DAILY [facility] Administration Paroxetine HCl 40 mg 08/17/20 09:00 09/01/20 08:40 Paroxetine 20 Mg Tab PO 40 mg DAILY [facility] Administration Vancomycin HCl 250 mg 08/29/20 18:00 09/01/20 18:14 Vancomycin Oral Solution 250 Mg/5 Ml Bottle PO 250 mg Q6HR [facility] Administration Objective - Vital Signs Vital signs: Vital Signs Temp 99.0 F 09/01/20 12:00 Pulse 82 09/01/20 16:33 Resp 26 H 11/24/20 15:30 BP 90/67 09/01/20 08:47 Pulse Ox 94 L 09/01/20 15:30 Intake & Output 08/31/20 09/01/20 09/01/20 18:59 06:59 18:59 Intake Total 425.042 6440.481 1121.383 Output Total 6920 900 915 Balance -6099.016 319.481 206.383 Weight 149.3 kg Intake: IV 506 143 217 0.9 120 110 90 Anidulafungin 100 mg In 100 Sodium Chloride 0.9% 100 ml @ 84 mls/hr IVPB DAILY [facility] Rx#:[id number] Pressure Bag 36 33 27 Intake, IV Titration 314.984 563.481 481.383 Amount Diltiazem 125 mg In 107.500 121.5 Sodium Chloride 0.9% 100 ml @ 7.5 MG/HR 7.5 mls/hr IV .[id number] [facility] Rx#: [id number] Norepinephrine 8 mg In 258.000 156.002 Sodium Chloride 0.9% 250 ml @ 0.05 MCG/KG/MIN 14. 445 mls/hr IV .[id number] [facility] Rx#:[id number] Norepinephrine 8 mg In 7.484 Sodium Chloride 0.9% 250 ml @ 0.05 MCG/KG/MIN 14. 967 mls/hr IV .[id number] [facility] Rx#:[id number] propofoL 1,000 mg In 200 183.981 325.381 Empty Bag 1 bag @ Titrate IV .Q0M [facility] Rx#: [id number] Tube Feeding 0 423 423 Other 90 Output: Urine 10 0 15 Stool 900 900 900 Hemodialysis 3000 Estimated Blood Loss 10 Other 3000 Other: Voiding Method Indwelling Catheter Indwelling Catheter Indwelling Catheter ABP, PAP, CO, CI - Last Documented Arterial Blood Pressure 132/69 - Exam GENERAL: The patient is intubated and sedated HEENT: Pupils are round and equally reacting to light. EOMI. No scleral icterus. No conjunctival pallor. Normocephalic, atraumatic. No pharyngeal erythema. No thyromegaly. CARDIOVASCULAR: S1 and S2 present. No murmurs, rubs, or gallops. PULMONARY: Chest is clear to auscultation, no wheezing or crackles. ABDOMEN: Soft, nontender, nondistended, normoactive bowel sounds. No palpable organomegaly. MUSCULOSKELETAL: No joint swelling or deformity. EXTREMITIES: No cyanosis, clubbing, or pedal edema. NEUROLOGICAL: Gross neurological examination did not reveal any focal deficits. SKIN: No rashes. no petechiae. - Labs CBC & Chem 7: 09/01/20 04:03 09/01/20 04:03 Labs: Abnormal Lab Results - Last 24 Hours (Table) 08/31/20 09/01/20 09/01/20 Range/Units 18:24 00:01 04:03 WBC 19.0 H (3.8-10.6) k/uL RBC 2.66 L (3.80-5.40) m/uL Hgb 7.4 L (11.4-16.0) gm/dL Hct 23.2 L (34.0-46.0) % RDW 20.0 H (11.5-15.5) % Neutrophils # (Manual) 16.91 H (1.3-7.7) k/uL Monocytes # (Manual) 1.14 H (0-1.0) k/uL Nucleated RBCs 2 H (0-0) /100 WBC ABG pH (7.35-7.45) ABG HCO3 (21-25) mmol/L ABG O2 Saturation (94-97) % Chloride (98-107) mmol/L Carbon Dioxide (22-30) mmol/L BUN (7-17) mg/dL Creatinine (0.52-1.04) mg/dL Glucose (74-99) mg/dL POC Glucose (mg/dL) 105 H 121 H (75-99) mg/dL Calcium (8.4-10.2) mg/dL 09/01/20 09/01/20 09/01/20 Range/Units 04:03 04:42 11:46 WBC (3.8-10.6) k/uL RBC (3.80-5.40) m/uL Hgb (11.4-16.0) gm/dL Hct (34.0-46.0) % RDW (11.5-15.5) % Neutrophils # (Manual) (1.3-7.7) k/uL Monocytes # (Manual) (0-1.0) k/uL Nucleated RBCs (0-0) /100 WBC ABG pH 7.34 L (7.35-7.45) ABG HCO3 20 L (21-25) mmol/L ABG O2 Saturation 98.8 H (94-97) % Chloride 110 H (98-107) mmol/L Carbon Dioxide 20 L (22-30) mmol/L BUN 58 H (7-17) mg/dL Creatinine 4.81 H (0.52-1.04) mg/dL Glucose 135 H (74-99) mg/dL POC Glucose (mg/dL) 159 H (75-99) mg/dL Calcium 7.8 L (8.4-10.2) mg/dL Microbiology - Last 24 Hours (Table) 08/29/20 12:00 Blood Culture - Preliminary Blood No Growth after 48 hours 08/17/20 10:36 Acid Fast Bacilli Smear - Final Bronchoalviolar Lavage - Left Acid Fast Bacilli Culture - Preliminary 08/17/20 10:36 Fungal Culture - Preliminary Bronchoalviolar Lavage - Left Assessment and Plan Assessment: Acute hypoxic respiratory failuresecondary to pneumonia. patient remains intubated and mechanically ventilated.S/p bronchoscopy due to recurrent mucous plugs and left side opacity. Sepsis, secondary to Streptococcal pneumonia. C. diff colitis Acute GI bleed status post EGD showing gastric ulcer. Status post clipping Paroxysmal atrial fibrillation with RVR Cardiomyopathy, unknown if ischemic or nonischemic, EF 30-35% Metabolic encephalopathy secondary to above Severe pulmonary hypertension Acute kidney injury Secondary to ATN currently requiring hemodialysis History of asthma Hypothyroidism Morbid obesity with a BMI 56.3 Plan: This is a 55 years old female who presents with multiple protocol problems as out. Continue with ICU management. Pulmonary/critical care team on the case, vent management as per pulmonary team. Continue with broad-spectrum antibiotic with eraxes and oral vancomycin as per ID team recommendation. Continue amiodarone drip. Continue with hemodialysis as per nephrology team. Continue with IV Protonix. Surgery team for PEG tube placement and tracheostomy Labs and medication were reviewed.. Continue same treatment. Continue with symptomatic treatment. Resume home medication. Monitor lytes and vitals. DVT and GI prophylaxis. Further recommendationsas per clinical course of the patient DVT prophylaxis: No heparin remain in view old Lead GI Prophylaxis: Ppi Prognosis is guarded
--- NOTE | 2020-09-01 21:51 | PN ---
PROGRESS NOTE DATE OF SERVICE: 09/01/2020 REASON FOR FOLLOWUP: 1. C difficile colitis. 2. Oropharyngeal candidiasis. INTERVAL HISTORY: The patient is currently afebrile. The patient is hemodynamically stable, not on any pressor support. FiO2 is currently stable at 40%. No significant purulent secretions through the ET. Tolerating her tube feeds. No worsening diarrhea reported. PHYSICAL EXAMINATION: Blood pressure 110/64 with a pulse of 97, temperature 99, T-max 100.5. She is 95% on 40% FiO2. General description is a middle-aged female lying in bed in no distress. RESPIRATORY SYSTEM: Unlabored breathing with decreased breath sounds at the base. No wheeze. HEART: S1, S2. Regular rate and rhythm. ABDOMEN: Soft. Mild distention. No guarding or rigidity. LABS: Hemoglobin 7.4, white count 19, BUN of 15, creatinine 4.81. Blood culture repeat has been negative so far. DIAGNOSTIC IMPRESSION AND PLAN: 1. Patient with Clostridium difficile colitis, on oral vancomycin down the PEG tube; to continue. If any worsening diarrhea, will add Questran for symptomatic relief. 2. Patient with a new fever, concerning for it being possibly line-related; however, blood culture remains negative. In view of the active C difficile, we will discontinue the daptomycin. 3. Patient with oropharyngeal candidiasis, covered with Eraxis; to continue. Monitor clinical course closely. MMODL / IJN: [id number] /
[2020-09-02] MEDS: ARTIFICIAL TEARS-HYPROMELLOSE DROPS 15 ML BTL BOTH EYES SCH ×6 (01:08→20:32)
[2020-09-02] MEDS: AMIODARONE 300 MG in DEXTROSE 5% IN WATER 250 ML IV SCH ×6 (01:09→20:31)
[2020-09-02 01:10] LABS: Glucose,Whole Blood 123 mg/dL (75-99)
[2020-09-02] MEDS: INSULIN ASPART (NovoLOG) 100 UNIT/ML VIAL SQ SCH ×4 (01:10→17:54)
[2020-09-02] MEDS: NOREPINEPHRINE 8 MG in SODIUM CHLORIDE 0.9% 250 ML IV SCH (01:13)
[2020-09-02] MEDS: VANCOMYCIN ORAL SOLUTION 250 MG/5 ML BOTTLE PO SCH ×4 (01:40→17:36)
[2020-09-02] MEDS: CISATRACURIUM 200 MG in SODIUM CHLORIDE 0.9% 180 ML IV SCH ×2 (01:48→23:23)
[2020-09-02] MEDS: IPRATROPIUM-ALBUTEROL 3 ML NEB INHALATION SCH ×6 (03:26→23:31)
[2020-09-02] MEDS ORDERED: AMIODARONE 360 MG in DEXTROSE 5% IN WATER 200 ML IV ONE ×2 (03:30)
[2020-09-02] MEDS ORDERED: AMIODARONE 300 MG in DEXTROSE 5% IN WATER 250 ML IV SCH ×2 (03:30)
[2020-09-02] MEDS: DILTIAZEM 125 MG in SODIUM CHLORIDE 0.9% 100 ML IV SCH ×2 (03:44→20:31)
[2020-09-02] MEDS: fentaNYL (PF) 1,000 MCG in SODIUM CHLORIDE 0.9% 80 ML IV SCH ×2 (03:54→23:32)
[2020-09-02] MEDS ORDERED: ACETAMINOPHEN IV (For NPO) 1,000 MG in EMPTY BAG 1 BAG IVPB PRN (04:15)
[2020-09-02 04:57] LABS: Anisocytosis Moderate; HCT 24.3 % (34.0-46.0); HGB 7.9 gm/dL (11.4-16.0); Hypochromasia Moderate; MCH 28.9 pg (25.0-35.0); MCHC 32.3 g/dL (31.0-37.0); MCV 89.3 fL (80.0-100.0); Platelet Count 395 k/uL (150-450); Poikilocytosis Slight; RBC 2.73 m/uL (3.80-5.40); RDW 20.2 % (11.5-15.5); WBC 24.1 k/uL (3.8-10.6)
[2020-09-02 05:07] LABS: ABG Base Excess -11.1 mmol/L; ABG HCO3 17 mmol/L (21-25); ABG PCO2 40 mmHg (35-45); ABG PH 7.23 (7.35-7.45); ABG PO2 75 mmHg (83-108); ABG TCO2 18 mmol/L (19-24)
[2020-09-02 05:16] LABS: Calcium 6.6 mg/dL (8.4-10.2); Potassium 5.9 mmol/L (3.5-5.1)
[2020-09-02 05:45] LABS: Glucose,Whole Blood 135 mg/dL (75-99)
[2020-09-02] MEDS: LEVOTHYROXINE 100 MCG TAB PO SCH (06:44)
[2020-09-02] MEDS: CALCIUM ACETATE 667 MG TAB PO SCH ×3 (06:44→17:36)
[2020-09-02 06:46] LABS: Glucose,Whole Blood 137 mg/dL (75-99)
[2020-09-02 07:11] LABS: Band Neutrophils % 7 %; Eosinophils # (M) 0.72 k/uL (0-0.7); Lymphocytes # (M) 2.89 k/uL (1.0-4.8); Metamyelocytes # (M) 0.24 k/uL (0); Metamyelocytes % 1 %; Monocytes # (M) 0.96 k/uL (0-1.0); Neutrophils % (M) 74 %; Nucleated Red Blood Cells 0 /100 WBC (0-0); Polychromasia Present; Total Cells Counted 200
[2020-09-02] MEDS ORDERED: SODIUM BICARB 8.4% 50 ML SYR (1 MEQ/ML) IV STA (08:16)
[2020-09-02] MEDS: ERGOCALCIFEROL 50,000 UNIT CAP PO SCH (08:58)
[2020-09-02] MEDS: ANIDULAFUNGIN 100 MG in SODIUM CHLORIDE 0.9% 100 ML IVPB SCH (09:01)
[2020-09-02] MEDS: PANTOPRAZOLE 40 MG/10 ML VIAL IVP SCH (09:01)
[2020-09-02] MEDS: CHLORHEXIDINE GLUCONATE 15 ML CUP MUCOUS MEM SCH (09:01)
[2020-09-02] MEDS: METOPROLOL TARTRATE 25 MG TAB PO SCH ×2 (09:01→20:32)
[2020-09-02] MEDS: PIPERACILLIN-TAZOBACTAM 3.375 GM in SODIUM CHLORIDE 0.9% 100 ML IVPB SCH ×2 (09:02→20:35)
[2020-09-02] MEDS: PARoxetine 20 MG TAB PO SCH (09:02)
[2020-09-02] MEDS: FORMOTEROL FUMARATE 20 MCG/2 ML NEBU INHALATION SCH ×2 (09:47→19:39)
[2020-09-02] MEDS: BUDESONIDE 1 MG/2 ML NEBU INHALATION SCH ×2 (09:47→19:39)
--- NOTE | 2020-09-02 09:54 | XR ---
EXAMINATION TYPE: XR chest 1V portable DATE OF EXAM: 09/02/2020 CLINICAL HISTORY: ICU management . TECHNIQUE: Portable frontal view of the chest. COMPARISON: 09/01/2020 chest radiograph. Access 08/25 CT chest. FINDINGS: Tracheostomy tube overlies the tracheal air column. Left PICC unchanged. Enteric tube with nonvisualization of the distal tip. There is opacification of the left hemithorax, which is increase d from 09/01/2020. No right pleural effusion. No pneumothorax. IMPRESSION: Opacification of the left hemithorax, with increased opacification of the left upper sloane g versus 09/01/2020.
[2020-09-02] MEDS ORDERED: SODIUM CHLORIDE 0.9% 1,000 ML IV ONE (10:16)
[2020-09-02] MEDS ORDERED: VANCOMYCIN IV PER PHARMACY 1 EACH MISC MISCELLANE PRN (10:18)
[2020-09-02] MEDS: NOREPINEPHRINE 32 MG in SODIUM CHLORIDE 0.9% 218 ML IV SCH ×2 (10:19→19:08)
[2020-09-02] MEDS: LACTATED RINGERS 1,000 ML IV SCH (10:21)
--- NOTE | 2020-09-02 10:34 | P.PN ---
Subjective Progress Note Date: 09/02/20 CHIEF COMPLAINT: Shortness of breath HISTORY OF PRESENT ILLNESS: Patient remains in the ICU requiring mechanical ventilation and has been requiring Levophed . She had episode of atrial ablation with rapid ventricular response and has been restarted on amiodarone. Patient is status post tracheostomy placement for respiratory failure. Patient unable to have PEG tube placed. During EGD suitable light reflux on anterior abdominal wall could not be visualized. Her tube feedings have been restarted. She is also being treated for C. diff. Infectious diseases adjust antibiotics. She did have a temp of 102.4 heart rate 137 WBC 24.1 hemoglobin 7.9 potassium 5.9 PHYSICAL EXAM: VITAL SIGNS: Reviewed. GENERAL: Well-developed in no acute distress. HEENT: No sclera icterus. Extraocular movements grossly intact. Moist buccal mucosa. Head is atraumatic, normocephalic. ABDOMEN: Soft. Nondistended. Nontender. NEUROLOGIC: Patient is on mechanical ventilation and sedated ASSESSMENT: 1. Acute hypoxic and hypercapnic respiratory failure status post tracheostomy 2. Severe protein calorie malnutrition 3. Sepsis shock secondary to pneumonia 4. Acute kidney injury currently hemodialysis dependent. Nephrology following 5. Paroxysmal atrial fibrillation 6. Upper GI bleed status post EGD with clipping of gastric ulcer just distal to the GE junction along the lesser curvature 7. C. diff positive PLAN: -Continue supportive care -Continue tube feedings -Antibiotics per infectious disease Physician Pest Control Technician note has been reviewed by physician. Signing provider agrees with the documented findings, assessment, and plan of care. Objective - Vital Signs Vital signs: Vital Signs Temp 101.6 F H 09/02/20 08:00 Pulse 112 H 09/02/20 08:45 Resp 35 H 09/02/20 08:45 BP 90/67 09/01/20 08:47 Pulse Ox 90 L 09/02/20 08:45 Intake & Output 09/01/20 09/02/20 09/02/20 18:59 06:59 18:59 Intake Total 9270.144 0429.927 91.315 Output Total 15 25 0 Balance 0223.060 2938.927 91.315 Weight 154.7 kg Intake: IV 246 143 13 0.9 110 110 10 Anidulafungin 100 mg In 100 Sodium Chloride 0.9% 100 ml @ 84 mls/hr IVPB DAILY [facility] Rx#:[id number] Pressure Bag 36 33 3 Intake, IV Titration 275.605 3642.927 31.315 Amount Amiodarone 300 mg In 250 Dextrose 5% in Water 250 ml @ 0.5 MG/MIN 25 mls/hr IV .Q10H [facility] Rx#: [id number] Cisatracurium 200 mg In 146.762 Sodium Chloride 0.9% 180 ml @ 1 MCG/KG/MIN 8.958 mls/hr IV .[id number] [facility] Rx #:[id number] Norepinephrine 8 mg In 156.002 328.683 31.315 Sodium Chloride 0.9% 250 ml @ 0.05 MCG/KG/MIN 14. 445 mls/hr IV .[id number] [facility] Rx#:[id number] fentaNYL (PF) 1,000 mcg 55.241 In Sodium Chloride 0.9% 80 ml @ Per Protocol IV . Q0M [facility] Rx#:[id number] propofoL 1,000 mg In 425.381 255.241 Empty Bag 1 bag @ Titrate IV .Q0M [facility] Rx#: [id number] Tube Feeding 564 517 47 Other 30 90 Output: Urine 15 25 0 Other: Voiding Method Indwelling Catheter Indwelling Catheter ABP, PAP, CO, CI - Last Documented Arterial Blood Pressure 90/61 - Labs CBC & Chem 7: 09/02/20 04:30 09/02/20 04:30 Labs: Abnormal Lab Results - Last 24 Hours (Table) 09/01/20 09/01/20 09/02/20 Range/Units 11:46 17:37 01:09 WBC (3.8-10.6) k/uL RBC (3.80-5.40) m/uL Hgb (11.4-16.0) gm/dL Hct (34.0-46.0) % RDW (11.5-15.5) % Neutrophils # (Manual) (1.3-7.7) k/uL Eosinophils # (Manual) (0-0.7) k/uL Metamyelocytes # (Man) (0) k/uL ABG pH (7.35-7.45) ABG pO2 (83-108) mmHg ABG HCO3 (21-25) mmol/L ABG Total CO2 (19-24) mmol/L ABG O2 Saturation (94-97) % Potassium (3.5-5.1) mmol/L Chloride (98-107) mmol/L Carbon Dioxide (22-30) mmol/L BUN (7-17) mg/dL Creatinine (0.52-1.04) mg/dL Glucose (74-99) mg/dL POC Glucose (mg/dL) 159 H 142 H 123 H (75-99) mg/dL Calcium (8.4-10.2) mg/dL 09/02/20 09/02/20 09/02/20 Range/Units 04:30 04:30 04:58 WBC 24.1 H (3.8-10.6) k/uL RBC 2.73 L (3.80-5.40) m/uL Hgb 7.9 L (11.4-16.0) gm/dL Hct 24.3 L (34.0-46.0) % RDW 20.2 H (11.5-15.5) % Neutrophils # (Manual) 19.50 H (1.3-7.7) k/uL Eosinophils # (Manual) 0.72 H (0-0.7) k/uL Metamyelocytes # (Man) 0.24 H (0) k/uL ABG pH 7.23 L (7.35-7.45) ABG pO2 75 L (83-108) mmHg ABG HCO3 17 L (21-25) mmol/L ABG Total CO2 18 L (19-24) mmol/L ABG O2 Saturation 93.0 L (94-97) % Potassium 5.9 H (3.5-5.1) mmol/L Chloride 108 H (98-107) mmol/L Carbon Dioxide 15 L (22-30) mmol/L BUN 65 H (7-17) mg/dL Creatinine 5.10 H (0.52-1.04) mg/dL Glucose 121 H (74-99) mg/dL POC Glucose (mg/dL) (75-99) mg/dL Calcium 6.6 L (8.4-10.2) mg/dL 09/02/20 09/02/20 Range/Units 05:44 06:35 WBC (3.8-10.6) k/uL RBC (3.80-5.40) m/uL Hgb (11.4-16.0) gm/dL Hct (34.0-46.0) % RDW (11.5-15.5) % Neutrophils # (Manual) (1.3-7.7) k/uL Eosinophils # (Manual) (0-0.7) k/uL Metamyelocytes # (Man) (0) k/uL ABG pH (7.35-7.45) ABG pO2 (83-108) mmHg ABG HCO3 (21-25) mmol/L ABG Total CO2 (19-24) mmol/L ABG O2 Saturation (94-97) % Potassium (3.5-5.1) mmol/L Chloride (98-107) mmol/L Carbon Dioxide (22-30) mmol/L BUN (7-17) mg/dL Creatinine (0.52-1.04) mg/dL Glucose (74-99) mg/dL POC Glucose (mg/dL) 135 H 137 H (75-99) mg/dL Calcium (8.4-10.2) mg/dL Microbiology - Last 24 Hours (Table) 08/29/20 12:00 Blood Culture - Preliminary Blood No Growth after 48 hours
[2020-09-02] MEDS ORDERED: VANCOMYCIN 2,500 MG in SODIUM CHLORIDE 0.9% 500 ML 500 ML IVPB ONE ×2 (11:00→13:00)
[2020-09-02 11:42] VITALS: BMI 55.0
[2020-09-02 11:59] LABS: Glucose,Whole Blood 151 mg/dL (75-99)
--- NOTE | 2020-09-02 13:13 | P.PN ---
Subjective Patient is seen in follow-up for acute kidney injury. She is currently hemodialysis dependent. She is intubated, on 80% FiO2. Maintained on amiod arone and Cardizem drip for A. fib. Also on Levophed. Underwent tracheostomy August 31. Tolerated short treatment of hemodialysis this morning with about a half a liter ultrafiltration. Vital signs are stable. On vasopressor support. General: The patient appeared well nourished and normally developed. HEENT: Head exam is unremarkable. Intubated. LUNGS: Breath sounds decreased. HEART: Irregular rate and rhythm. Abdomen: Obese, soft. EXTREMITIES: 2+ edema. Objective - Vital Signs Vital signs: Vital Signs Temp 99.1 F 09/02/20 12:00 Pulse 100 09/02/20 12:26 Resp 26 H 09/02/20 12:15 BP 90/67 09/01/20 08:47 Pulse Ox 97 09/02/20 12:15 Intake & Output 09/01/20 09/02/20 09/02/20 18:59 06:59 18:59 Intake Total 1806.949 1463.927 851.479 Output Total 15 25 5 Balance 3004.844 6237.927 846.479 Weight 154.7 kg 154.7 kg Intake: IV 246 143 278 0.9 110 110 60 Anidulafungin 100 mg In 100 100 Sodium Chloride 0.9% 100 ml @ 84 mls/hr IVPB DAILY [facility] Rx#:[id number] Piperacillin-Tazobactam 3 100 .375 gm In Sodium Chloride 0.9% 100 ml @ 25 mls/hr IVPB Q12HR [facility] Rx #:[id number] Pressure Bag 36 33 18 Intake, IV Titration 212.344 7871.927 137.479 Amount Amiodarone 300 mg In 250 Dextrose 5% in Water 250 ml @ 0.5 MG/MIN 25 mls/hr IV .Q10H [facility] Rx#: [id number] Cisatracurium 200 mg In 146.762 Sodium Chloride 0.9% 180 ml @ 1 MCG/KG/MIN 8.958 mls/hr IV .[id number] [facility] Rx #:[id number] Norepinephrine 32 mg In 6.164 Sodium Chloride 0.9% 218 ml @ 0.05 MCG/KG/MIN 3. 626 mls/hr IV .Q24H [facility] Rx#:[id number] Norepinephrine 8 mg In 156.002 328.683 31.315 Sodium Chloride 0.9% 250 ml @ 0.05 MCG/KG/MIN 14. 445 mls/hr IV .[id number] [facility] Rx#:[id number] fentaNYL (PF) 1,000 mcg 55.241 In Sodium Chloride 0.9% 80 ml @ Per Protocol IV . Q0M [facility] Rx#:[id number] propofoL 1,000 mg In 425.381 255.241 100 Empty Bag 1 bag @ Titrate IV .Q0M [facility] Rx#: [id number] Tube Feeding 564 517 376 Other 30 90 60 Output: Urine 15 25 5 Other: Voiding Method Indwelling Catheter Indwelling Catheter ABP, PAP, CO, CI - Last Documented Arterial Blood Pressure 93/63 - Labs CBC & Chem 7: 09/02/20 04:30 09/02/20 04:30 Labs: Abnormal Lab Results - Last 24 Hours (Table) 09/01/20 09/02/20 09/02/20 Range/Units 17:37 01:09 04:30 WBC 24.1 H (3.8-10.6) k/uL RBC 2.73 L (3.80-5.40) m/uL Hgb 7.9 L (11.4-16.0) gm/dL Hct 24.3 L (34.0-46.0) % RDW 20.2 H (11.5-15.5) % Neutrophils # (Manual) 19.50 H (1.3-7.7) k/uL Eosinophils # (Manual) 0.72 H (0-0.7) k/uL Metamyelocytes # (Man) 0.24 H (0) k/uL ABG pH (7.35-7.45) ABG pO2 (83-108) mmHg ABG HCO3 (21-25) mmol/L ABG Total CO2 (19-24) mmol/L ABG O2 Saturation (94-97) % Potassium (3.5-5.1) mmol/L Chloride (98-107) mmol/L Carbon Dioxide (22-30) mmol/L BUN (7-17) mg/dL Creatinine (0.52-1.04) mg/dL Glucose (74-99) mg/dL POC Glucose (mg/dL) 142 H 123 H (75-99) mg/dL Calcium (8.4-10.2) mg/dL 09/02/20 09/02/20 09/02/20 Range/Units 04:30 04:58 05:44 WBC (3.8-10.6) k/uL RBC (3.80-5.40) m/uL Hgb (11.4-16.0) gm/dL Hct (34.0-46.0) % RDW (11.5-15.5) % Neutrophils # (Manual) (1.3-7.7) k/uL Eosinophils # (Manual) (0-0.7) k/uL Metamyelocytes # (Man) (0) k/uL ABG pH 7.23 L (7.35-7.45) ABG pO2 75 L (83-108) mmHg ABG HCO3 17 L (21-25) mmol/L ABG Total CO2 18 L (19-24) mmol/L ABG O2 Saturation 93.0 L (94-97) % Potassium 5.9 H (3.5-5.1) mmol/L Chloride 108 H (98-107) mmol/L Carbon Dioxide 15 L (22-30) mmol/L BUN 65 H (7-17) mg/dL Creatinine 5.10 H (0.52-1.04) mg/dL Glucose 121 H (74-99) mg/dL POC Glucose (mg/dL) 135 H (75-99) mg/dL Calcium 6.6 L (8.4-10.2) mg/dL 09/02/20 09/02/20 Range/Units 06:35 11:58 WBC (3.8-10.6) k/uL RBC (3.80-5.40) m/uL Hgb (11.4-16.0) gm/dL Hct (34.0-46.0) % RDW (11.5-15.5) % Neutrophils # (Manual) (1.3-7.7) k/uL Eosinophils # (Manual) (0-0.7) k/uL Metamyelocytes # (Man) (0) k/uL ABG pH (7.35-7.45) ABG pO2 (83-108) mmHg ABG HCO3 (21-25) mmol/L ABG Total CO2 (19-24) mmol/L ABG O2 Saturation (94-97) % Potassium (3.5-5.1) mmol/L Chloride (98-107) mmol/L Carbon Dioxide (22-30) mmol/L BUN (7-17) mg/dL Creatinine (0.52-1.04) mg/dL Glucose (74-99) mg/dL POC Glucose (mg/dL) 137 H 151 H (75-99) mg/dL Calcium (8.4-10.2) mg/dL Microbiology - Last 24 Hours (Table) 08/29/20 12:00 Blood Culture - Preliminary Blood No Growth after 48 hours Assessment and Plan Plan: Assessment: 1. Acute kidney injury, currently hemodialysis dependent. Etiology is ATN secondary to septic shock. Urine output 0-5 mL an hour. Diuretic unresponsive. Baseline creatinine near 1. 2. Septic shock secondary to pneumonia. Status post multiple bronchoscopies this admission with removal of mucous plugs. Maintained on antibiotics. 3. Volume overload. Improving with ultrafiltration. 4. Metabolic acidosis secondary to acute kidney injury. Bicarb level down to 15 today. 5. Hypervolemic hyponatremia. Improved with ultrafiltration. 6. Hyperphosphatemia secondary to acute kidney injury Maintained on PhosLo. 7. Anemia secondary to acute GI bleed. Component of underlying renal disease. Maintained on Aranesp. Status post blood transfusion on August 29. Status post IV DDAVP. Status post EGD August 30 - gastric ulcer noted with active bleeding status post Endo Clip. 8. A. fib with RVR maintained on Cardizem and amiodarone drip. 9. C. diff colitis maintained on oral vancomycin. 10. Acute hypoxic gustatory failure status post tracheostomy on August 31. 11. Hyperkalemia secondary to acute kidney injury and metabolic acidosis. Plan: Completed 2 hour hemodialysis treatment this morning. Continue to assess on daily basis. Wean FiO2 and vasopressors. Continue to monitor renal function and urine output. Patient will need a permacath placed when hemodynamically stable. Vascular surgery aware. Status post IV bicarb this morning. Add oral bicarbonate. Repeat potassium level this evening. Overall prognosis guarded.
--- NOTE | 2020-09-02 14:11 | P.PN ---
Subjective Progress Note Date: 09/02/20 Principal diagnosis: Acute hypoxic respiratory failure and acute streptococcal pneumonia. On 08/30/2020, the patient remains sedated on propofol and she is calm and comfortable. She remains on a mechanical ventilator. She is intubated by #7.5 orotracheal tube. She is on assist control mode at the rate of 20 with a tidal volume of 450 and FiO2 of 40% with a PEEP of 5. Blood gas showed a pH of 7.37 with a pCO2 of 38 and pO2 97. The chest x-ray shows partial reexpansion of the left upper lobe. There is Still atelectasis of left lower lobe post bronchoscopy and therapeutic it was suctioning and removal of mucous plugs. The patient is having significant amount of mucous plugs. I did a fourth bronchoscopy today where I was able to utilize a regular bronchoscope and I was able to evacuate all of the mucous plugs without any major difficulties and by the completion of today's procedure, the patient taken airways to the left upper lobe, lingula and left lower lobe. The patient meanwhile had an EGD done by gastroenterology. EGD showed a gastric ulcer that was ligated and clipped. This was a 1 cm proximal gastric ulcer distal to the GE junction along the lesser curvature of the stomach. There was also a small hiatal hernia. Noted the patient is off tube feeds pH is not showing any signs of bleeding patient is also off articulation for now. She has requiring boluses levo fed at a dose of 0.04 mg per KG per minute. IV fluids at KVO. The patient is receiving periodic hemodialysis per nephrology will remain to be on the case. My plan was to proceed with a tracheostomy and PEG tube insertion this patient and for that reason general surgery has been consulted for insertion of a tracheostomy and a PEG tube insertion of a later stage. The white cell count is 28. Hemoglobin was at 7.8. The renal function shows a BUN of 76 with a creatinine of 5.36. She remains on IV Unasyn. She did receive packed RBC blood transfusion and hemoglobin has been stable at 7.8. The plan is also to proceed with a hemodialysis ultrafiltration of 3 L of long as the patient is able to tolerate. Reevaluated today on 08/31/20, patient remains in the ICU, intubated and mechanically ventilated. Her ventilator settings are volume control plus of 450 FiO2 40% rate is 20 PEEP is 5. ABG showed a pO2 of 92 pCO2 of 37 pH of 7.37. Chest x-ray which I reviewed earlier this morning showed complete collapse of the left lung suggestive of endobronchial mucous plug. Hence bronchoscopy was performed, and the left lung was lavaged. Patient is scheduled to undergo trac heostomy and PEG tube placement today. Patient is on Cardizem drip at 10 mg per hour, propofol at 55 mcg/kg/m, she has a PICC line in the left brachial area, and she has a right radial arterial line. Again she scheduled to have tracheostomy and PEG tube today. Patient is sedated on propofol, looking at the previous notes by my partners, this is today the fifth bronchoscopy to clear mucous plugs from the left lung. Patient also had previous EGD and gastric ulcer was noted proximally. This was ligated and clipped by gastroenterology. Patient remains on hemodialysis. Nephrology remains on the case. She remains on Unasyn for her pneumonia. WBC count today is 20.6 hemoglobin is 7.3. Lindsey telets are normal. Electrolytes are normal. BUN is 66 creatinine is 5.2 1. patient is not requiring any pressors, she is hemodynamically stable. Her enteral feeding is presently on hold, will resume this tomorrow after placement of the PEG tube likely today. Patient was reevaluated today on 09/02/20, remains intubated and mechanically ventilated, however the patient seems to be extremely agitated, none synchronous with mechanical ventilation, try to increase her propofol, did not seem to help much, placed on fentanyl, did not improve her pulmonary status, although her chest x-ray is showing significant improvement but continues to have significant left lower lobe consolidation, left lung seems to be better today compared to yesterday. Patient was placed on Nimbex drip, her ventilator settings are volume control plus, rate of 20 tidal volume is 450 FiO2 is 40% and PEEP is 5. ABG this morning showed a pO2 of 108 pCO2 of 37 pH of 7.36. Patient is on multiple drips including norepinephrine at 0.15 mcg/kg/m, she is also on propofol at 55 mcg/kg/m and this was increased up to 75. She was on Cardizem which I have discontinued and recommended patient to go on amiodarone seems to be lowering her blood pressure without significant effect on her heart rate. And I have consulted cardiology to evaluate. WBC count today is high at 19.0 hemoglobin is 7.4. Electrolytes are normal however her BUN is 58 creatinine 4.81, and the patient is undergoing dialysis again today. Chest x-ray showed better aeration of the left upper lobe and left midlung, continues to have left basilar consolidation. Reevaluated today on 09/02/20, patient does not seem to be doing well today. Remains intubated, and mechanically ventilated. Her chest x-ray showed complete collapse of the left lung requiring bronchoscopy and lavage of the left lung, and he mucous plugs were lavaged from the left mainstem bronchus, left upper lobe, lingula, and left lower lobe. These were actually bloody mucous plugs, removed and the whole left lung was cleared visually with the bronchoscope. Patient is on mechanical ventilation assist control rate of 26 FiO2 is 40% tidal volume is 450 PEEP is 5. ABG this morning showed a pO2 of 75 pCO2 of 40 0 pH of 7.23, hence 2 A of bicarb were given as soon as I evaluated the patient. Patient is spiking fevers, she is requiring more pressors,/on norepinephrine, patient is also in atrial fibrillation with RVR requiring Cardizem and amiodarone. Her drips are fentanyl at 0.3 mcg/kg/h. Cardizem at 5 mg per hour. Levo fed at 30 mcg/kg/m, Nimbex at 20 mcg/kg/m, and amiodarone drip at 1 mg/h. Patient was bronchoscoped, BAL done, fluid was sent for diagnostic studies, and we have ordered more blood cultures, 2 A of bicarb were given, antibiotics drummond, the patient is only on antifungal therapy she is being followed by infectious disease, I did recommend a dose of vancomycin, and added Zosyn awaiting the report from the blood cultures. Clinically the patient is septic. Based on the blood cultures, antibiotics will be adjusted accordingly they would also be adjusted according to the cultures from the BAL of the left lung. Objective - Vital Signs Vital signs: Vital Signs Temp 99.1 F 09/02/20 12:00 Pulse 91 09/02/20 14:00 Resp 26 H 09/02/20 14:00 BP 90/67 09/01/20 08:47 Pulse Ox 98 09/02/20 14:00 Intake & Output 09/01/20 09/02/20 09/02/20 18:59 06:59 18:59 Intake Total 6922.376 4556.927 1518.479 Output Total 15 25 10 Balance 6262.802 8591.927 1508.479 Weight 154.7 kg 154.7 kg Intake: IV 246 143 804 0.9 110 110 80 Anidulafungin 100 mg In 100 100 Sodium Chloride 0.9% 100 ml @ 84 mls/hr IVPB DAILY [facility] Rx#:[id number] Piperacillin-Tazobactam 3 100 .375 gm In Sodium Chloride 0.9% 100 ml @ 25 mls/hr IVPB Q12HR [facility] Rx #:[id number] Pressure Bag 36 33 24 Vancomycin 2,250 mg In 500 Sodium Chloride 0.9% 500 ml 500 ml @ 167 mls/hr IVPB ONCE ONE Rx#: [id number] Intake, IV Titration 472.088 5379.927 137.479 Amount Amiodarone 300 mg In 250 Dextrose 5% in Water 250 ml @ 0.5 MG/MIN 25 mls/hr IV .Q10H [facility] Rx#: [id number] Cisatracurium 200 mg In 146.762 Sodium Chloride 0.9% 180 ml @ 1 MCG/KG/MIN 8.958 mls/hr IV .[id number] [facility] Rx #:[id number] Norepinephrine 32 mg In 6.164 Sodium Chloride 0.9% 218 ml @ 0.05 MCG/KG/MIN 3. 626 mls/hr IV .Q24H [facility] Rx#:[id number] Norepinephrine 8 mg In 156.002 328.683 31.315 Sodium Chloride 0.9% 250 ml @ 0.05 MCG/KG/MIN 14. 445 mls/hr IV .[id number] [facility] Rx#:[id number] fentaNYL (PF) 1,000 mcg 55.241 In Sodium Chloride 0.9% 80 ml @ Per Protocol IV . Q0M [facility] Rx#:[id number] propofoL 1,000 mg In 425.381 255.241 100 Empty Bag 1 bag @ Titrate IV .Q0M [facility] Rx#: [id number] Tube Feeding 564 517 517 Other 30 90 60 Output: Urine 15 25 10 Other: Voiding Method Indwelling Catheter Indwelling Catheter ABP, PAP, CO, CI - Last Documented Arterial Blood Pressure 95/62 - Exam Physical Exam: Revealed a 55-year-old female morbidly obese, sedated and paralyzed. Head: Atraumatic normocephalic. Tracheostomy tube is intact. EENT: PERRLA, EOMI, extremely dry mucous membranes noted. [Neck is supple.] [No neck masses.] [No thyromegaly.] [No JVD.] Tracheostomy tube is intact. Chest: Crackles and rhonchi noted diminished breath sound on the left side. Cardiac Exam: Distant S1 and S2, no S3 gallop. No murmur. Abdomen: Morbidly obese, [Soft, nontender, no megaly, no rebound, no guarding, normal bowel sounds.] Extremities: [No clubbing, 1+ bipedal edema, no cyanosis.] Diminished pulses bilaterally. Left brachial PICC line is noted, and the right radial arterial line dialysis catheter is noted in the left groin. Neurological Exam: Could not assess, patient is sedated and paralyzed. Psychiatric: Could not be assessed. Skin: No rashes. - Labs CBC & Chem 7: 09/02/20 04:30 09/02/20 04:30 Labs: Abnormal Lab Results - Last 24 Hours (Table) 09/01/20 09/02/20 09/02/20 Range/Units 17:37 01:09 04:30 WBC 24.1 H (3.8-10.6) k/uL RBC 2.73 L (3.80-5.40) m/uL Hgb 7.9 L (11.4-16.0) gm/dL Hct 24.3 L (34.0-46.0) % RDW 20.2 H (11.5-15.5) % Neutrophils # (Manual) 19.50 H (1.3-7.7) k/uL Eosinophils # (Manual) 0.72 H (0-0.7) k/uL Metamyelocytes # (Man) 0.24 H (0) k/uL ABG pH (7.35-7.45) ABG pO2 (83-108) mmHg ABG HCO3 (21-25) mmol/L ABG Total CO2 (19-24) mmol/L ABG O2 Saturation (94-97) % Potassium (3.5-5.1) mmol/L Chloride (98-107) mmol/L Carbon Dioxide (22-30) mmol/L BUN (7-17) mg/dL Creatinine (0.52-1.04) mg/dL Glucose (74-99) mg/dL POC Glucose (mg/dL) 142 H 123 H (75-99) mg/dL Calcium (8.4-10.2) mg/dL 09/02/20 09/02/20 09/02/20 Range/Units 04:30 04:58 05:44 WBC (3.8-10.6) k/uL RBC (3.80-5.40) m/uL Hgb (11.4-16.0) gm/dL Hct (34.0-46.0) % RDW (11.5-15.5) % Neutrophils # (Manual) (1.3-7.7) k/uL Eosinophils # (Manual) (0-0.7) k/uL Metamyelocytes # (Man) (0) k/uL ABG pH 7.23 L (7.35-7.45) ABG pO2 75 L (83-108) mmHg ABG HCO3 17 L (21-25) mmol/L ABG Total CO2 18 L (19-24) mmol/L ABG O2 Saturation 93.0 L (94-97) % Potassium 5.9 H (3.5-5.1) mmol/L Chloride 108 H (98-107) mmol/L Carbon Dioxide 15 L (22-30) mmol/L BUN 65 H (7-17) mg/dL Creatinine 5.10 H (0.52-1.04) mg/dL Glucose 121 H (74-99) mg/dL POC Glucose (mg/dL) 135 H (75-99) mg/dL Calcium 6.6 L (8.4-10.2) mg/dL 09/02/20 09/02/20 Range/Units 06:35 11:58 WBC (3.8-10.6) k/uL RBC (3.80-5.40) m/uL Hgb (11.4-16.0) gm/dL Hct (34.0-46.0) % RDW (11.5-15.5) % Neutrophils # (Manual) (1.3-7.7) k/uL Eosinophils # (Manual) (0-0.7) k/uL Metamyelocytes # (Man) (0) k/uL ABG pH (7.35-7.45) ABG pO2 (83-108) mmHg ABG HCO3 (21-25) mmol/L ABG Total CO2 (19-24) mmol/L ABG O2 Saturation (94-97) % Potassium (3.5-5.1) mmol/L Chloride (98-107) mmol/L Carbon Dioxide (22-30) mmol/L BUN (7-17) mg/dL Creatinine (0.52-1.04) mg/dL Glucose (74-99) mg/dL POC Glucose (mg/dL) 137 H 151 H (75-99) mg/dL Calcium (8.4-10.2) mg/dL Microbiology - Last 24 Hours (Table) 08/29/20 12:00 Blood Culture - Preliminary Blood No Growth after 48 hours Assessment and Plan Assessment: Impression: Acute hypoxic and hypercapnic respiratory failure secondary to pneumonia, this is mostly streptococcal pneumonia. Recurrent collapse of the left lung secondary to mucous plugs requiring bronchoscopy, patient required bronchoscopy and lavage of the left lung 6 times already and today was #6. Acute kidney injury currently hemodialysis dependent. Upper GI bleeding requiring EGD and clipping of ulcer at the lesser curvature of the stomach. Persistent leukocytosis. Paroxysmal atrial fibrillation , on Cardizem and amiodarone, being addressed by cardiology. Acute metabolic, possibly drug induced encephalopathy. Acute left lower lobe pneumonia, secondary to Streptococcus pneumonia based on the sputum cultures. Sepsis and septic shock secondary to left lower lobe pneumonia Acute exacerbation of moderate persistent bronchial asthma secondary to pneumonia. Obstructive sleep apnea syndrome. Obesity/hypoventilation syndrome. Type 2 diabetes. History of depression and generalized anxiety disorder. History of hypothyroidism. Status post tracheostomy on 08/31/20, could not undergo PEG feeding tube placement. Sepsis and septic shock requiring broadening the spectrum of antibiotics, and awaiting blood cultures. Recommendation: Continue ventilatory support, Continue sedatives and paralytics at this point. Considering her condition and the fact that she is extremely unstable today, no plans to wean or assess mental status. Continue nutritional support via nasogastric tube, Continue amiodarone for atrial fibrillation. And Cardizem. Continue GI and DVT prophylaxis. Continue propofol and fentanyl and Nimbex Broaden the spectrum of antibiotics coverage, infectious disease to reassess. In the meantime continue Eraxis. Continue GI and DVT prophylaxis. Continue hemodialysis. Consider sodium bicarb drip. If the patient does not get dialysis today. Continue close monitoring of all her labs including electrolytes and renal profile. Continue daily x-rays of the chest. Cannot assess mental status today since the patient is not stable Overall prognosis remains extremely poor and guarded, Patient is not ready for any weaning today. Remains critically ill. Critical care time is 35 minutes. Not including the time spent on procedures/bronchoscopy and BAL. Time with Patient: Greater than 30
[2020-09-02] MEDS: SODIUM BICARBONATE TAB 650 MG TAB PO SCH ×2 (17:36→23:35)
[2020-09-02 17:43] LABS: Glucose,Whole Blood 183 mg/dL (75-99)
--- NOTE | 2020-09-02 18:28 | P.PN ---
Subjective CHIEF COMPLAINT: A. fib with RVR HISTORY OF PRESENT ILLNESS: This is a 55-year old female with a past medical history significant for diabetes mellitus, asthma, hypothyroidism, and morbid obesity who initially presented 08/15/2020 with respiratory failure and has had multiple medical comorbidities including GIB with bleeding with gastric ulcer, Afib with RVR, respiratory failure, s/p tracheostomy, metabolic encephalopathy, sepsis, CHAY requiring HD, recurrent mucouc plugging. She was seen previously by cardiology and HR's had been controlled and therefore cardiology had signed off. Unfortunately patient has continued to have issues and has been having AFib with RVR over the last 24 hrs. Patient was placed on an Amio drip at 1mg last night in addition to a Cardizem drip at 5 however HR's 130-140's. Patient with recurrent mucous plugging and underwent a broch with BAL by pulmonology. Requiring vasopressors for septic shock. Patient scheduled to undergo HD today for elevated K+. Hgb 7.9 stable. Continue leukocytosis with WBC 24. Nurse felt that previous pushes of Metoprolol appeared to improve HR better than Cardizem. REVIEW OF SYSTEMS: Unable to assess secondary to mechanical ventilation PHYSICAL EXAM: VITAL SIGNS: Reviewed. GENERAL: Well-developed in no acute distress, obese chronically ill appearing HEENT: Head is normocephalic. Pupils are equal, round. Sclerae anicteric. Mucous membranes of the mouth are moist. Neck supple. No JVD or thyromegaly, +ETT LUNGS: Coarse breath sounds bilaterally HEART: Irregularly irregular rate and rhythm, tachycardic. S1 and S2 heard. ABDOMEN: Soft. Nondistended. Nontender. EXTREMITIES: Normal range of motion. No clubbing or cyanosis. Peripheral pulses intact. NEUROLOGIC: Somnolent on vent ASSESSMENT: Acute hypoxic respiratory failure rs/p tracheostomy secondary to pneumonia Sepsis, secondary to pneumonia +/- other Paroxysmal atrial fibrillation with RVR Cardiomyopathy, unknown if ischemic or nonischemic, EF 30-35%, may be tachy induced Abnormal troponins, likely related to hypoxia, sepsis, and/or afib with RVR Severe pulmonary hypertension Acute kidney injury, now on HD Hypotension requiring vasopressor support History of asthma Hypothyroidism Morbid obesity BMI 57.5 GIB with gastric ulcer s/p clipping Mucous plugging PLAN: Patient with continued decline clinically since last seen. Patient not a good interventional or anticoagulation candidate given anemia, recent GIB requiring clipping. Remains on pressors and additionally in Afib with RVR. Discussed with ICU/nursing. We will transition to oral amio. We will attempt to increase the Cardizem drip. If patient tolerates HD and remains RVR may consider changing Cardizem gtt to Esmolol gtt as reports of Byron were working better for his HR. Esmolol would allow for more rapid titration. In the meantime, we will continue with current Metoprolol 25mg bid, and increased rate of Cardizem 10mg (with an additional 5mg bolus) and monitor hemodynamics on pressors. We will re check limited 2D echo to further assess EF or any cardiac etiology for continued decline. Prognosis poor. Objective - Vital Signs Vital signs: Vital Signs Temp 100.4 F H 09/02/20 16:00 Pulse 89 09/02/20 17:00 Resp 26 H 09/02/20 17:00 BP 103/64 09/02/20 13:57 Pulse Ox 97 09/02/20 17:00 Intake & Output 09/01/20 09/02/20 09/02/20 18:59 06:59 18:59 Intake Total 9706.641 4784.927 1904.229 Output Total 15 25 510 Balance 5482.097 5736.927 1394.229 Weight 154.7 kg 154.7 kg Intake: IV 246 143 843 0.9 Normal Saline at 10mL 110 110 110 /hr as KVO Anidulafungin 100 mg In 100 100 Sodium Chloride 0.9% 100 ml @ 84 mls/hr IVPB DAILY [facility] Rx#:[id number] Piperacillin-Tazobactam 3 100 .375 gm In Sodium Chloride 0.9% 100 ml @ 25 mls/hr IVPB Q12HR [facility] Rx #:[id number] Pressure Bag 36 33 33 Vancomycin 2,250 mg In 500 Sodium Chloride 0.9% 500 ml 500 ml @ 167 mls/hr IVPB ONCE ONE Rx#: [id number] Intake, IV Titration 201.824 9006.927 331.229 Amount Amiodarone 300 mg In 250 Dextrose 5% in Water 250 ml @ 0.5 MG/MIN 25 mls/hr IV .Q10H [facility] Rx#: [id number] Cisatracurium 200 mg In 146.762 Sodium Chloride 0.9% 180 ml @ 1 MCG/KG/MIN 8.958 mls/hr IV .[id number] [facility] Rx #:[id number] Norepinephrine 32 mg In 99.914 Sodium Chloride 0.9% 218 ml @ 0.05 MCG/KG/MIN 3. 626 mls/hr IV .Q24H [facility] Rx#:[id number] Norepinephrine 8 mg In 156.002 328.683 31.315 Sodium Chloride 0.9% 250 ml @ 0.05 MCG/KG/MIN 14. 445 mls/hr IV .[id number] [facility] Rx#:[id number] fentaNYL (PF) 1,000 mcg 55.241 In Sodium Chloride 0.9% 80 ml @ Per Protocol IV . Q0M [facility] Rx#:[id number] propofoL 1,000 mg In 425.381 255.241 200 Empty Bag 1 bag @ Titrate IV .Q0M [facility] Rx#: [id number] Tube Feeding 564 517 640 Other 30 90 90 Output: Urine 15 25 10 Hemodialysis 500 Other: Voiding Method Indwelling Catheter Indwelling Catheter Indwelling Catheter ABP, PAP, CO, CI - Last Documented Arterial Blood Pressure 89/57 - Labs CBC & Chem 7: 09/02/20 04:30 09/02/20 04:30 Labs: Abnormal Lab Results - Last 24 Hours (Table) 09/02/20 09/02/20 09/02/20 Range/Units 01:09 04:30 04:30 WBC 24.1 H (3.8-10.6) k/uL RBC 2.73 L (3.80-5.40) m/uL Hgb 7.9 L (11.4-16.0) gm/dL Hct 24.3 L (34.0-46.0) % RDW 20.2 H (11.5-15.5) % Neutrophils # (Manual) 19.50 H (1.3-7.7) k/uL Eosinophils # (Manual) 0.72 H (0-0.7) k/uL Metamyelocytes # (Man) 0.24 H (0) k/uL ABG pH (7.35-7.45) ABG pO2 (83-108) mmHg ABG HCO3 (21-25) mmol/L ABG Total CO2 (19-24) mmol/L ABG O2 Saturation (94-97) % Potassium 5.9 H (3.5-5.1) mmol/L Chloride 108 H (98-107) mmol/L Carbon Dioxide 15 L (22-30) mmol/L BUN 65 H (7-17) mg/dL Creatinine 5.10 H (0.52-1.04) mg/dL Glucose 121 H (74-99) mg/dL POC Glucose (mg/dL) 123 H (75-99) mg/dL Calcium 6.6 L (8.4-10.2) mg/dL 09/02/20 09/02/20 09/02/20 Range/Units 04:58 05:44 06:35 WBC (3.8-10.6) k/uL RBC (3.80-5.40) m/uL Hgb (11.4-16.0) gm/dL Hct (34.0-46.0) % RDW (11.5-15.5) % Neutrophils # (Manual) (1.3-7.7) k/uL Eosinophils # (Manual) (0-0.7) k/uL Metamyelocytes # (Man) (0) k/uL ABG pH 7.23 L (7.35-7.45) ABG pO2 75 L (83-108) mmHg ABG HCO3 17 L (21-25) mmol/L ABG Total CO2 18 L (19-24) mmol/L ABG O2 Saturation 93.0 L (94-97) % Potassium (3.5-5.1) mmol/L Chloride (98-107) mmol/L Carbon Dioxide (22-30) mmol/L BUN (7-17) mg/dL Creatinine (0.52-1.04) mg/dL Glucose (74-99) mg/dL POC Glucose (mg/dL) 135 H 137 H (75-99) mg/dL Calcium (8.4-10.2) mg/dL 09/02/20 09/02/20 Range/Units 11:58 17:41 WBC (3.8-10.6) k/uL RBC (3.80-5.40) m/uL Hgb (11.4-16.0) gm/dL Hct (34.0-46.0) % RDW (11.5-15.5) % Neutrophils # (Manual) (1.3-7.7) k/uL Eosinophils # (Manual) (0-0.7) k/uL Metamyelocytes # (Man) (0) k/uL ABG pH (7.35-7.45) ABG pO2 (83-108) mmHg ABG HCO3 (21-25) mmol/L ABG Total CO2 (19-24) mmol/L ABG O2 Saturation (94-97) % Potassium (3.5-5.1) mmol/L Chloride (98-107) mmol/L Carbon Dioxide (22-30) mmol/L BUN (7-17) mg/dL Creatinine (0.52-1.04) mg/dL Glucose (74-99) mg/dL POC Glucose (mg/dL) 151 H 183 H (75-99) mg/dL Calcium (8.4-10.2) mg/dL Microbiology - Last 24 Hours (Table) 09/02/20 09:20 Gram Stain - Preliminary Bronchoalviolar Lavage - Left Bronchial Washings Culture - Preliminary 09/02/20 09:20 Acid Fast Bacilli Culture - Preliminary Bronchoalviolar Lavage - Left 09/02/20 09:20 Fungal Culture - Preliminary Bronchoalviolar Lavage - Left 08/29/20 12:00 Blood Culture - Preliminary Blood No Growth after 72 hours
--- NOTE | 2020-09-02 20:53 | P.PN ---
Subjective 55-year-old female patient was morbid obesity as well as multiple comorbid conditions who was admitted to the hospital with acute hypoxic respiratory failure secondary to pneumonia and she was intubated and placed on mechanical ventilation. Patient has been followed closely by pulmonary service, her lung today was completely collapsed on the left side commissioned oriented bronchoscopy as per pulmonary team with removal of the mucous plug. She remains 1 or spectrum antibiotics with Eraxis and daptomycin. For her sepsis and oral candidiasis. Also she is on oral vancomycin For C. diff colitis. Also she is on dialysis for her acute kidney injury. A GI team evaluated the patient and had endoscopy with EGD showing gastric ulcer status post clipping. Surgery team also on the case and planning for PEG tube and tracheostomy placement today. Her chest x-ray today was showing complete collapse of the left side. WBC is 20.6 K, hemoglobin 7.3. BMP is unremarkable and she has high creatinine 09/01/2020 Patient remains in the ICU in critical condition, she's intubated and on mechanical ventilation, no wheezing and a trial was done today, patient on the other side and she was agitated and the base was started. Chest x-ray showed left lower lobe consolidation. She underwent tracheostomy yesterday She is tachypneic and tachycardic and Cardizem drip was switched to amiodarone drip with cartilage team were consulted. She has leukocytosis of 19 K, slightly trending down. Daptomycin was discontinued. Patient continued to be on Eraxis and Oral vancomycin for C. diff colitis, infectious disease on the case. Creatinine elevated secondary to septic shock, she is undergoing hemodialysis per nephrology team, she will need permacath sometime later on. Prognosis remains guarded\ 09/02/2020 Patient remains in the ICU intubated and sedated, patient actually today was getting worse, she developed A. fib and RVR that needed to amiodarone drip and later on Cardizem drip, demographic analyst evaluated the patient and recommended to continue with metoprolol, echocardiogram is ordered and is pending She had fever and needed higher dose of Levophed, her antibiotics changed to Zosyn and IV vancomycin 1 on the top of oral vancomycin for her positive for C. diff and stool as well as Eraxis. WBC is worse today at 2013. Culture are pen ding and recent chest x-ray was showing persistent left lower lobe consolidation. She is followed by nephrology team for hemodialysis, and she might need permacath. Review of systems: N/a Active Medications Generic Name Dose Route Start Last Admin Trade Name Freq PRN Reason Stop Dose Admin Albuterol/Ipratropium 3 ml 08/16/20 09:26 Ipratropium-Albuterol 3 Ml Neb INHALATION RT-Q2H PRN Shortness Of Breath Or Wheezing Albuterol/Ipratropium 3 ml 08/18/20 12:00 09/02/20 19:39 Ipratropium-Albuterol 3 Ml Neb INHALATION 3 ml RT-Q4H [facility] Administration Amiodarone HCl 400 mg 09/03/20 09:00 Amiodarone 200 Mg Tab PO BID [facility] Artificial Tears 2 drops 09/01/20 12:00 09/02/20 20:32 Artificial Tears-Hypromellose Drops 15 Ml Btl BOTH EYES 2 drops Q4HR [facility] Administration Budesonide 1 mg 08/16/20 20:00 09/02/20 19:39 Budesonide 1 Mg/2 Ml Nebu INHALATION 1 mg RT-BID [facility] Administration Calcium Acetate 667 mg 08/24/20 17:30 09/02/20 17:36 Calcium Acetate 667 Mg Tab PO 667 mg TID-W/MEALS [facility] Administration Darbepoetin Sammy 40 mcg 08/28/20 16:00 08/28/20 16:37 Darbepoetin Sammy 40 Mcg/0.4 Ml Syringe SQ 40 mcg Q7D [facility] Administration Ergocalciferol 50,000 unit 08/21/20 09:00 09/02/20 08:58 Ergocalciferol 50,000 Unit Cap PO Not Given DAILY [facility] Formoterol Fumarate 20 mcg 08/16/20 20:00 09/02/20 19:39 Formoterol Fumarate 20 Mcg/2 Ml Nebu INHALATION 20 mcg RT-BID [facility] Administration Anidulafungin 100 mg/ Sodium 100 mls @ 84 mls/hr 08/23/20 09:00 09/02/20 09:01 Chloride IVPB 84 mls/hr DAILY [facility] Administration Propofol 1,000 mg/ IV Solution 100 mls @ 0 mls/hr 08/29/20 20:00 09/02/20 20:35 IV 50 mcg/kg/min .Q0M [facility] 46.41 mls/hr Administration Protocol Titrate Lactated Ringer's 1,000 mls @ 20 mls/hr 08/31/20 10:18 09/02/20 10:21 Lactated Ringers IV Not Given .Q24H [facility] Fentanyl Citrate 1,000 mcg/ 100 mls @ 0 mls/hr 09/01/20 08:45 09/02/20 03:54 Sodium Chloride IV 0.2 mcg/kg/hr .Q0M [facility] 2.986 mls/hr Administration Protocol Per Protocol Cisatracurium Besylate 200 mg/ 200 mls @ 8.958 mls/hr 09/01/20 09:15 09/02/20 01:48 Sodium Chloride IV 1 mcg/kg/min .[id number] [facility] 8.958 mls/hr Administration Protocol 1 MCG/KG/MIN Diltiazem HCl 125 mg/ Sodium 125 mls @ 0 mls/hr 09/02/20 03:30 09/02/20 20:31 Chloride IV 5 mg/hr .Q0M [facility] 5 mls/hr Administration Protocol Per Protocol Acetaminophen 1,000 mg/ IV 100 mls @ 400 mls/hr 09/02/20 04:15 Solution IVPB 09/03/20 04:16 Q6HR PRN Fever Piperacillin Sod/Tazobactam 100 mls @ 25 mls/hr 09/02/20 09:00 09/02/20 20:35 Sod 3.375 gm/ Sodium Chloride IVPB 25 mls/hr Q12HR [facility] Administration Amiodarone HCl 300 mg/ 250 mls @ 25 mls/hr 09/02/20 09:45 09/02/20 20:31 Dextrose/Water IV 09/03/20 03:44 0.5 mg/min .Q10H [facility] 25 mls/hr Administration Protocol 0.5 MG/MIN Norepinephrine Bitartrate 32 250 mls @ 3.626 mls/hr 09/02/20 10:15 09/02/20 19:08 mg/ Sodium Chloride IV 0.32 mcg/kg/min .Q24H [facility] 23.205 mls/hr Administration Protocol 0.05 MCG/KG/MIN Vancomycin HCl 2,250 mg/ 500 mls @ 167 mls/hr 09/03/20 08:00 Sodium Chloride IVPB 09/03/20 10:59 ONCE ONE Insulin Aspart 0 unit 08/17/20 00:00 09/02/20 17:54 Insulin Aspart (Novolog) 100 Unit/Ml Vial SQ 4 unit Q6H [facility] Administration Protocol Levothyroxine Sodium 200 mcg 08/16/20 14:15 09/02/20 06:44 Levothyroxine 100 Mcg Tab PO 200 mcg DAILY@0630 [facility] Administration Metoprolol Tartrate 25 mg 08/23/20 09:00 09/02/20 20:32 Metoprolol Tartrate 25 Mg Tab PO 25 mg BID [facility] Administration Miscellaneous Information 1 each 09/02/20 10:18 Vancomycin Iv Per Pharmacy 1 Each Misc MISCELLANE DIRECTED PRN Per Protocol Protocol Naloxone HCl 0.2 mg 08/15/20 22:05 Naloxone 0.4 Mg/Ml 1 Ml Vial IV Q2M PRN Opioid Reversal Pantoprazole Sodium 40 mg 08/17/20 09:00 09/02/20 09:01 Pantoprazole 40 Mg/10 Ml Vial IVP 40 mg DAILY [facility] Administration Paroxetine HCl 40 mg 08/17/20 09:00 09/02/20 09:02 Paroxetine 20 Mg Tab PO 40 mg DAILY [facility] Administration Sodium Bicarbonate 650 mg 09/02/20 16:00 09/02/20 17:36 Sodium Bicarbonate Tab 650 Mg Tab PO 650 mg TID [facility] Administration Vancomycin HCl 250 mg 08/29/20 18:00 09/02/20 17:36 Vancomycin Oral Solution 250 Mg/5 Ml Bottle PO 250 mg Q6HR [facility] Administration Objective - Vital Signs Vital signs: Vital Signs Temp 99.1 F 09/02/20 13:57 Pulse 91 09/02/20 14:00 Resp 26 H 09/02/20 14:00 BP 103/64 09/02/20 13:57 Pulse Ox 98 09/02/20 14:00 Intake & Output 09/01/20 09/02/20 09/02/20 18:59 06:59 18:59 Intake Total 4109.250 4318.927 1612.229 Output Total 15 25 510 Balance 2545.797 0414.927 1102.229 Weight 154.7 kg 154.7 kg Intake: IV 246 143 804 0.9 110 110 80 Anidulafungin 100 mg In 100 100 Sodium Chloride 0.9% 100 ml @ 84 mls/hr IVPB DAILY [facility] Rx#:[id number] Piperacillin-Tazobactam 3 100 .375 gm In Sodium Chloride 0.9% 100 ml @ 25 mls/hr IVPB Q12HR [facility] Rx #:[id number] Pressure Bag 36 33 24 Vancomycin 2,250 mg In 500 Sodium Chloride 0.9% 500 ml 500 ml @ 167 mls/hr IVPB ONCE ONE Rx#: [id number] Intake, IV Titration 083.797 9515.927 231.229 Amount Amiodarone 300 mg In 250 Dextrose 5% in Water 250 ml @ 0.5 MG/MIN 25 mls/hr IV .Q10H [facility] Rx#: [id number] Cisatracurium 200 mg In 146.762 Sodium Chloride 0.9% 180 ml @ 1 MCG/KG/MIN 8.958 mls/hr IV .[id number] [facility] Rx #:[id number] Norepinephrine 32 mg In 99.914 Sodium Chloride 0.9% 218 ml @ 0.05 MCG/KG/MIN 3. 626 mls/hr IV .Q24H [facility] Rx#:[id number] Norepinephrine 8 mg In 156.002 328.683 31.315 Sodium Chloride 0.9% 250 ml @ 0.05 MCG/KG/MIN 14. 445 mls/hr IV .[id number] [facility] Rx#:[id number] fentaNYL (PF) 1,000 mcg 55.241 In Sodium Chloride 0.9% 80 ml @ Per Protocol IV . Q0M [facility] Rx#:[id number] propofoL 1,000 mg In 425.381 255.241 100 Empty Bag 1 bag @ Titrate IV .Q0M [facility] Rx#: [id number] Tube Feeding 564 517 517 Other 30 90 60 Output: Urine 15 25 10 Hemodialysis 500 Other: Voiding Method Indwelling Catheter Indwelling Catheter Indwelling Catheter ABP, PAP, CO, CI - Last Documented Arterial Blood Pressure 95/62 - Exam GENERAL: The patient is intubated and sedated HEENT: Pupils are round and equally reacting to light. EOMI. No scleral icterus. No conjunctival pallor. Normocephalic, atraumatic. No pharyngeal erythema. No thyromegaly. CARDIOVASCULAR: S1 and S2 present. No murmurs, rubs, or gallops. PULMONARY: Chest is clear to auscultation, no wheezing or crackles. ABDOMEN: Soft, nontender, nondistended, normoactive bowel sounds. No palpable organomegaly. MUSCULOSKELETAL: No joint swelling or deformity. EXTREMITIES: No cyanosis, clubbing, or pedal edema. NEUROLOGICAL: Gross neurological examination did not reveal any focal deficits. SKIN: No rashes. no petechiae. - Labs CBC & Chem 7: 09/02/20 04:30 09/02/20 04:30 Labs: Abnormal Lab Results - Last 24 Hours (Table) 09/01/20 09/02/20 09/02/20 Range/Units 17:37 01:09 04:30 WBC 24.1 H (3.8-10.6) k/uL RBC 2.73 L (3.80-5.40) m/uL Hgb 7.9 L (11.4-16.0) gm/dL Hct 24.3 L (34.0-46.0) % RDW 20.2 H (11.5-15.5) % Neutrophils # (Manual) 19.50 H (1.3-7.7) k/uL Eosinophils # (Manual) 0.72 H (0-0.7) k/uL Metamyelocytes # (Man) 0.24 H (0) k/uL ABG pH (7.35-7.45) ABG pO2 (83-108) mmHg ABG HCO3 (21-25) mmol/L ABG Total CO2 (19-24) mmol/L ABG O2 Saturation (94-97) % Potassium (3.5-5.1) mmol/L Chloride (98-107) mmol/L Carbon Dioxide (22-30) mmol/L BUN (7-17) mg/dL Creatinine (0.52-1.04) mg/dL Glucose (74-99) mg/dL POC Glucose (mg/dL) 142 H 123 H (75-99) mg/dL Calcium (8.4-10.2) mg/dL 09/02/20 09/02/20 09/02/20 Range/Units 04:30 04:58 05:44 WBC (3.8-10.6) k/uL RBC (3.80-5.40) m/uL Hgb (11.4-16.0) gm/dL Hct (34.0-46.0) % RDW (11.5-15.5) % Neutrophils # (Manual) (1.3-7.7) k/uL Eosinophils # (Manual) (0-0.7) k/uL Metamyelocytes # (Man) (0) k/uL ABG pH 7.23 L (7.35-7.45) ABG pO2 75 L (83-108) mmHg ABG HCO3 17 L (21-25) mmol/L ABG Total CO2 18 L (19-24) mmol/L ABG O2 Saturation 93.0 L (94-97) % Potassium 5.9 H (3.5-5.1) mmol/L Chloride 108 H (98-107) mmol/L Carbon Dioxide 15 L (22-30) mmol/L BUN 65 H (7-17) mg/dL Creatinine 5.10 H (0.52-1.04) mg/dL Glucose 121 H (74-99) mg/dL POC Glucose (mg/dL) 135 H (75-99) mg/dL Calcium 6.6 L (8.4-10.2) mg/dL 09/02/20 09/02/20 Range/Units 06:35 11:58 WBC (3.8-10.6) k/uL RBC (3.80-5.40) m/uL Hgb (11.4-16.0) gm/dL Hct (34.0-46.0) % RDW (11.5-15.5) % Neutrophils # (Manual) (1.3-7.7) k/uL Eosinophils # (Manual) (0-0.7) k/uL Metamyelocytes # (Man) (0) k/uL ABG pH (7.35-7.45) ABG pO2 (83-108) mmHg ABG HCO3 (21-25) mmol/L ABG Total CO2 (19-24) mmol/L ABG O2 Saturation (94-97) % Potassium (3.5-5.1) mmol/L Chloride (98-107) mmol/L Carbon Dioxide (22-30) mmol/L BUN (7-17) mg/dL Creatinine (0.52-1.04) mg/dL Glucose (74-99) mg/dL POC Glucose (mg/dL) 137 H 151 H (75-99) mg/dL Calcium (8.4-10.2) mg/dL Microbiology - Last 24 Hours (Table) 09/02/20 09:20 Bronchial Washings Culture - Preliminary Bronchoalviolar Lavage - Left 09/02/20 09:20 Acid Fast Bacilli Culture - Preliminary Bronchoalviolar Lavage - Left 09/02/20 09:20 Fungal Culture - Preliminary Bronchoalviolar Lavage - Left 08/29/20 12:00 Blood Culture - Preliminary Blood No Growth after 72 hours Assessment and Plan Assessment: Acute hypoxic respiratory failuresecondary to pneumonia. patient remains intubated and mechanically ventilated.S/p bronchoscopy due to recurrent mucous plugs and left side opacity. Sepsis, secondary to Streptococcal pneumonia. C. diff colitis Acute GI bleed status post EGD showing gastric ulcer. Status post clipping Paroxysmal atrial fibrillation with RVR Cardiomyopathy, unknown if ischemic or nonischemic, EF 30-35% Metabolic encephalopathy secondary to above Severe pulmonary hypertension Acute kidney injury Secondary to ATN currently requiring hemodialysis History of asthma Hypothyroidism Morbid obesity with a BMI 56.3 Plan: This is a 55 years old female who presents with multiple protocol problems as out. Continue with ICU management. Pulmonary/critical care team on the case, vent management as per pulmonary team. Continue with broad-spectrum antibiotic with eraxes and oral vancomycin as per ID team recommendation. Also Zosyn. Continue amiodarone drip as per demographic analyst recommendation . Continue with hemodialysis as per nephrology team. Continue with IV Protonix. Surgery team for PEG tube placement and tracheostomy, Also patient may need permacath for dialysis Labs and medication were reviewed.. Continue same treatment. Continue with symptomatic treatment. Resume home medication. Monitor lytes and vitals. DVT and GI prophylaxis. Further recommendationsas per clinical course of the patient DVT prophylaxis: No heparin remain in view old Lead GI Prophylaxis: Ppi Prognosis is guarded
--- NOTE | 2020-09-02 23:33 | PN ---
PROGRESS NOTE DATE OF SERVICE: 09/02/2020 REASON FOR FOLLOWUP: Fever, C difficile colitis and oropharyngeal candidiasis. INTERVAL HISTORY: The patient is 102.8. The patient is afebrile. The patient is hemodynamically stable. FiO2 is currently 60%. No significant purulent secretions thru the ET has been reported. The patient noted to have diarrhea. No nausea. No vomiting reported. PHYSICAL EXAMINATION: Blood pressure 102/68 with a pulse of 82. Temperature is 100.4. She is 96% on 55% FiO2. General description is a middle-aged female intubated on the vent. Respiratory system: Unlabored breathing with decreased breath sounds in the base. No wheeze. Heart S1, S2. Regular rate and rhythm. ABDOMEN: Soft. No tenderness. LABS: Hemoglobin , white count 4.1. BUN of 65, creatinine 5.10. DIAGNOSTIC IMPRESSION/PLAN: 1. Patient with aspiration pneumonia. Sputum is strep pneumo has been adequately treated. 2. Patient now with C difficile colitis, did have persistent diarrhea, being treated with Bactrim. Will add Questran for persistent diarrhea. 3. Patient with new fever. Cultures were repeated. Vanco and Zosyn will be added by Pulmonary. We will monitor kidney function and clinical course closely. Continue supportive care. MMODL / IJN: [id number] /
[2020-09-03 00:19] LABS: Glucose,Whole Blood 194 mg/dL (75-99)
[2020-09-03] MEDS: VANCOMYCIN ORAL SOLUTION 250 MG/5 ML BOTTLE PO SCH ×4 (00:24→16:56)
[2020-09-03] MEDS: INSULIN ASPART (NovoLOG) 100 UNIT/ML VIAL SQ SCH ×4 (00:24→16:56)
[2020-09-03] MEDS: ARTIFICIAL TEARS-HYPROMELLOSE DROPS 15 ML BTL BOTH EYES SCH ×6 (00:25→22:57)
--- NOTE | 2020-09-03 01:48 | PCN ---
PROCEDURE NOTE OPERATIVE REPORT: 1. Bronchoscopy and bronchoalveolar lavage of the left lung. 2. Clearing of mucus plugging from the left mainstem bronchus. PREOPERATIVE DIAGNOSIS: Collapse of the left lung secondary to mucous plugging involving the left mainstem bronchus. POSTOPERATIVE DIAGNOSIS: Collapse of the left lung secondary to mucous plugging involving the left mainstem bronchus. ANESTHESIA: The patient was already on Nimbex drip, propofol, and fentanyl drip. PROCEDURE DETAILS: The patient was connected already to mechanical ventilation, and tracheostomy was connected to an adapter and connected to mechanical ventilation. The bronchoscope was advanced through the adapter down to the distal end of the tracheostomy, it was noted to be about 3 cm above the rashid. Thorough examination was done, right side was basically clear. Left side, there was significant bloody mucoid plugs noted in the left mainstem bronchus, these were lavaged with saline, suctioned, and I kept the lavaging and suctioning until the whole left mainstem bronchus was clear. I also lavaged the left upper lobe, lingula, and left lower lobe, all the mucus plugs were removed, and sent for different diagnostic studies. Procedure was well tolerated, no evidence of any immediate complications. MMODL / IJN: [id number] /
[2020-09-03] MEDS: IPRATROPIUM-ALBUTEROL 3 ML NEB INHALATION SCH ×5 (03:24→19:05)
[2020-09-03] MEDS: NOREPINEPHRINE 32 MG in SODIUM CHLORIDE 0.9% 218 ML IV SCH ×2 (04:32→13:50)
[2020-09-03 06:03] LABS: ABG HCO3 14 mmol/L (21-25); ABG Oxygen Saturation 94.6 % (94-97); ABG PCO2 42 mmHg (35-45); ABG PO2 88 mmHg (83-108); ABG TCO2 15 mmol/L (19-24); Allen Test Performed? Yes
[2020-09-03 06:13] LABS: ABG PH 7.11 (7.35-7.45)
[2020-09-03 06:23] LABS: Anisocytosis Moderate; HCT 23.6 % (34.0-46.0); Hypochromasia Marked; MCV 91.1 fL (80.0-100.0); Macrocytosis Slight; Mean Platelet Volume 8.2; Platelet Count 427 k/uL (150-450); Poikilocytosis Slight; RBC 2.59 m/uL (3.80-5.40); RDW 20.3 % (11.5-15.5)
[2020-09-03 06:27] LABS: HGB 7.2 gm/dL (11.4-16.0); MCH 27.5 pg (25.0-35.0); MCHC 30.6 g/dL (31.0-37.0)
[2020-09-03 06:32] LABS: Glucose,Whole Blood 154 mg/dL (75-99)
[2020-09-03] MEDS: LEVOTHYROXINE 100 MCG TAB PO SCH (07:03)
[2020-09-03] MEDS: CALCIUM ACETATE 667 MG TAB PO SCH ×3 (07:03→16:21)
--- NOTE | 2020-09-03 07:07 | XR ---
EXAMINATION TYPE: XR chest 1V portable DATE OF EXAM: 09/03/2020 COMPARISON: 09/02/2020 HISTORY: SOB, Follow Up FINDINGS: Tracheostomy tube as well as NG tube and left-sided PICC line are in place. Left basilar opacity persists with aeration now identified of the left upper lobe. Mild patchy densit y right perihilar region. Stable appearance of the cardio-mediastinal structures at this time. Pleural effusion unchanged. IMPRESSION: 1. Left basilar opacity persists with aeration now identified of the left upper lobe. Mild patchy de nsity right perihilar region.
[2020-09-03 07:17] LABS: Band Neutrophils % 5 %; Eosinophils # (M) 0.37 k/uL (0-0.7); Metamyelocytes # (M) 0.37 k/uL (0); Metamyelocytes % 1 %; Monocytes # (M) 2.98 k/uL (0-1.0); Neutrophils % (M) 79 %; Nucleated Red Blood Cells 6 /100 WBC (0-0); Total Cells Counted 200; WBC 37.2 k/uL (3.8-10.6)
[2020-09-03 07:19] LABS: Anisocytosis (M) Present; Poikilocytosis (M) Present; Polychromasia Present; Potassium 6.8 mmol/L (3.5-5.1)
[2020-09-03 07:20] LABS: Calcium 5.7 mg/dL (8.4-10.2)
[2020-09-03] MEDS ORDERED: SODIUM BICARB 8.4% 50 ML SYR (1 MEQ/ML) IV STA (07:48)
[2020-09-03] MEDS ORDERED: SODIUM BICARB 8.4% 50 ML SYR (1 MEQ/ML) ONE ×2 (07:49→20:39)
[2020-09-03] MEDS ORDERED: propofoL 100 ML IV ONE (07:53)
[2020-09-03] MEDS ORDERED: DEXTROSE 5% IN WATER 1,000 ML with SODIUM BICARB (1 MEQ/ML) 150 ML IV SCH (08:00)
[2020-09-03] MEDS ORDERED: VANCOMYCIN 2,250 MG in SODIUM CHLORIDE 0.9% 500 ML 500 ML IVPB ONE (08:00)
[2020-09-03] MEDS: BUDESONIDE 1 MG/2 ML NEBU INHALATION SCH ×2 (08:43→19:05)
[2020-09-03] MEDS: FORMOTEROL FUMARATE 20 MCG/2 ML NEBU INHALATION SCH ×2 (08:43→19:05)
[2020-09-03] MEDS: ERGOCALCIFEROL 50,000 UNIT CAP PO SCH (09:11)
[2020-09-03] MEDS: AMIODARONE 200 MG TAB PO SCH ×2 (09:22→22:57)
[2020-09-03] MEDS: PIPERACILLIN-TAZOBACTAM 3.375 GM in SODIUM CHLORIDE 0.9% 100 ML IVPB SCH (09:22)
[2020-09-03] MEDS: SODIUM BICARBONATE TAB 650 MG TAB PO SCH ×2 (09:22→16:21)
[2020-09-03] MEDS: ANIDULAFUNGIN 100 MG in SODIUM CHLORIDE 0.9% 100 ML IVPB SCH (09:22)
[2020-09-03] MEDS: METOPROLOL TARTRATE 25 MG TAB PO SCH ×2 (09:40→14:48)
[2020-09-03] MEDS: PARoxetine 20 MG TAB PO SCH (09:40)
[2020-09-03] MEDS: LACTATED RINGERS 1,000 ML IV SCH (09:47)
[2020-09-03] MEDS: PANTOPRAZOLE 40 MG/10 ML VIAL IVP SCH (09:47)
--- NOTE | 2020-09-03 10:46 | P.PN ---
Progress Note - Text Progress Note Date: 09/03/20 Patient remains on ventilator. On exam trachea site is clean without evidence of infection. Patient will be reevaluated for possible PEG tube placement next week
--- NOTE | 2020-09-03 10:54 | P.PN ---
Subjective Progress Note Date: 09/03/20 Follow-up for acute kidney injury, currently off dialysis. Urine output. Potassium continue to remain high. On ventilator. 0.3 g of levo fed. Objective - Vital Signs Vital signs: Vital Signs Temp 96.1 F L 09/03/20 08:00 Pulse 82 09/03/20 10:41 Resp 26 H 09/03/20 10:00 BP 120/63 09/03/20 10:00 Pulse Ox 85 L 09/03/20 10:00 Intake & Output 09/02/20 09/03/20 09/03/20 18:59 06:59 18:59 Intake Total 2074.883 5349.286 0763.055 Output Total 510 20 30 Balance 4418.558 8350.731 1030.055 Weight 154.7 kg 158.2 kg Intake: IV 869 243 570 0.9 Normal Saline at 10mL 130 110 40 /hr as KVO Anidulafungin 100 mg In 100 84 Sodium Chloride 0.9% 100 ml @ 84 mls/hr IVPB DAILY [facility] Rx#:[id number] Piperacillin-Tazobactam 3 100 100 100 .375 gm In Sodium Chloride 0.9% 100 ml @ 25 mls/hr IVPB Q12HR [facility] Rx #:[id number] Pressure Bag 39 33 12 Vancomycin 2,250 mg In 500 334 Sodium Chloride 0.9% 500 ml 500 ml @ 167 mls/hr IVPB ONCE ONE Rx#: [id number] Intake, IV Titration 973.050 3561.731 337.055 Amount Amiodarone 300 mg In 250 Dextrose 5% in Water 250 ml @ 0.5 MG/MIN 25 mls/hr IV .Q10H [facility] Rx#: [id number] Cisatracurium 200 mg In 193.343 Sodium Chloride 0.9% 180 ml @ 1 MCG/KG/MIN 8.958 mls/hr IV .[id number] [facility] Rx #:[id number] Diltiazem 125 mg In 83.917 Sodium Chloride 0.9% 100 ml @ Per Protocol IV .Q0M [facility] Rx#:[id number] Norepinephrine 32 mg In 99.914 326.804 137.055 Sodium Chloride 0.9% 218 ml @ 0.05 MCG/KG/MIN 3. 626 mls/hr IV .Q24H [facility] Rx#:[id number] Norepinephrine 8 mg In 31.315 Sodium Chloride 0.9% 250 ml @ 0.05 MCG/KG/MIN 14. 445 mls/hr IV .[id number] [facility] Rx#:[id number] fentaNYL (PF) 1,000 mcg 58.625 In Sodium Chloride 0.9% 80 ml @ Per Protocol IV . Q0M [facility] Rx#:[id number] propofoL 1,000 mg In 262.654 333.042 200 Empty Bag 1 bag @ Titrate IV .Q0M [facility] Rx#: [id number] Tube Feeding 722 123 Other 90 30 Output: Urine 10 20 30 Hemodialysis 500 Other: Voiding Method Indwelling Catheter Indwelling Catheter Indwelling Catheter ABP, PAP, CO, CI - Last Documented Arterial Blood Pressure 79/63 - Exam Limited exam secondary to COVID-19 pandemic and to limit PPE - Labs CBC & Chem 7: 09/03/20 06:05 09/03/20 06:05 Labs: Abnormal Lab Results - Last 24 Hours (Table) 09/02/20 09/02/20 09/03/20 Range/Units 11:58 17:41 00:18 WBC (3.8-10.6) k/uL RBC (3.80-5.40) m/uL Hgb (11.4-16.0) gm/dL Hct (34.0-46.0) % MCHC (31.0-37.0) g/dL RDW (11.5-15.5) % Neutrophils # (Manual) (1.3-7.7) k/uL Monocytes # (Manual) (0-1.0) k/uL Metamyelocytes # (Man) (0) k/uL Nucleated RBCs (0-0) /100 WBC ABG pH (7.35-7.45) ABG HCO3 (21-25) mmol/L ABG Total CO2 (19-24) mmol/L Sodium (137-145) mmol/L Potassium (3.5-5.1) mmol/L Carbon Dioxide (22-30) mmol/L BUN (7-17) mg/dL Creatinine (0.52-1.04) mg/dL Glucose (74-99) mg/dL POC Glucose (mg/dL) 151 H 183 H 194 H (75-99) mg/dL Calcium (8.4-10.2) mg/dL 09/03/20 09/03/20 09/03/20 Range/Units 00:20 05:56 06:05 WBC (3.8-10.6) k/uL RBC (3.80-5.40) m/uL Hgb (11.4-16.0) gm/dL Hct (34.0-46.0) % MCHC (31.0-37.0) g/dL RDW (11.5-15.5) % Neutrophils # (Manual) (1.3-7.7) k/uL Monocytes # (Manual) (0-1.0) k/uL Metamyelocytes # (Man) (0) k/uL Nucleated RBCs (0-0) /100 WBC ABG pH 7.11 L* (7.35-7.45) ABG HCO3 14 L (21-25) mmol/L ABG Total CO2 15 L (19-24) mmol/L Sodium 132 L (137-145) mmol/L Potassium 6.0 H 6.8 H* (3.5-5.1) mmol/L Carbon Dioxide 10 L (22-30) mmol/L BUN 65 H (7-17) mg/dL Creatinine 5.13 H (0.52-1.04) mg/dL Glucose 139 H (74-99) mg/dL POC Glucose (mg/dL) (75-99) mg/dL Calcium 5.7 L* (8.4-10.2) mg/dL 09/03/20 09/03/20 Range/Units 06:05 06:30 WBC 37.2 H (3.8-10.6) k/uL RBC 2.59 L (3.80-5.40) m/uL Hgb 7.2 L (11.4-16.0) gm/dL Hct 23.6 L (34.0-46.0) % MCHC 30.6 L (31.0-37.0) g/dL RDW 20.3 H (11.5-15.5) % Neutrophils # (Manual) 31.20 H (1.3-7.7) k/uL Monocytes # (Manual) 2.98 H (0-1.0) k/uL Metamyelocytes # (Man) 0.37 H (0) k/uL Nucleated RBCs 6 H (0-0) /100 WBC ABG pH (7.35-7.45) ABG HCO3 (21-25) mmol/L ABG Total CO2 (19-24) mmol/L Sodium (137-145) mmol/L Potassium (3.5-5.1) mmol/L Carbon Dioxide (22-30) mmol/L BUN (7-17) mg/dL Creatinine (0.52-1.04) mg/dL Glucose (74-99) mg/dL POC Glucose (mg/dL) 154 H (75-99) mg/dL Calcium (8.4-10.2) mg/dL Microbiology - Last 24 Hours (Table) 09/02/20 09:20 Acid Fast Bacilli Smear - Final Bronchoalviolar Lavage - Left Acid Fast Bacilli Culture - Preliminary 09/02/20 09:20 Gram Stain - Preliminary Bronchoalviolar Lavage - Left Bronchial Washings Culture - Preliminary 09/02/20 09:20 Fungal Culture - Preliminary Bronchoalviolar Lavage - Left 08/29/20 12:00 Blood Culture - Preliminary Blood No Growth after 72 hours Assessment and Plan Assessment: #1 oliguric acute kidney injury currently hemodialysis dependent. Baseline creatinine 0.1 MG per DL. #2 septic shock from pneumonia, weaning off pressors. #3 volume overload #4 anion gap metabolic acidosis secondary to acute kidney injury #5 hyperkalemia recurrent #6 ventilator dependent acute respiratory failure Plan: #1 hemodialysis today for hyperkalemia, plan again full treatment tomorrow. #2 monitor closely for renal recovery #3 ICU care
--- NOTE | 2020-09-03 11:49 | P.PN ---
Subjective Progress Note Date: 09/03/20 This is a 55-year-old female with history of asthma, diabetes, hypothyroidism and obesity who was admitted to the hospital with a GI bleeding with gastric ulcer. Patient also has respiratory failure requiring tracheostomy. We are asked to see the patient for management of atrial fibrillation. Patient is currently on by mouth amiodarone and also IV Cardizem. She is on metoprolol 25 mg by mouth twice a day. Heart heart rate is controlled. We'll going to increase the metoprolol 25 mg by mouth twice a day and discontinue IV Cardizem. Rest of the management as for the intensivists Objective - Vital Signs Vital signs: Vital Signs Temp 96.1 F L 09/03/20 08:00 Pulse 79 09/03/20 11:00 Resp 26 H 09/03/20 11:00 BP 96/49 09/03/20 11:00 Pulse Ox 89 L 09/03/20 10:30 Intake & Output 09/02/20 09/03/20 09/03/20 18:59 06:59 18:59 Intake Total 2074.883 2051.480 0259.055 Output Total 510 20 30 Balance 7987.522 9014.731 1183.055 Weight 154.7 kg 158.2 kg Intake: IV 869 243 723 0.9 Normal Saline at 10mL 130 110 40 /hr as KVO Anidulafungin 100 mg In 100 84 Sodium Chloride 0.9% 100 ml @ 84 mls/hr IVPB DAILY [facility] Rx#:[id number] Dextrose 5% in Water 1, 150 000 ml @ 75 mls/hr IV . [id number] [facility] with Sodium Bicarb (1 Meq/ml) 150 ml Rx#:[id number] Piperacillin-Tazobactam 3 100 100 100 .375 gm In Sodium Chloride 0.9% 100 ml @ 25 mls/hr IVPB Q12HR [facility] Rx #:[id number] Pressure Bag 39 33 15 Vancomycin 2,250 mg In 500 334 Sodium Chloride 0.9% 500 ml 500 ml @ 167 mls/hr IVPB ONCE ONE Rx#: [id number] Intake, IV Titration 192.747 4456.731 337.055 Amount Amiodarone 300 mg In 250 Dextrose 5% in Water 250 ml @ 0.5 MG/MIN 25 mls/hr IV .Q10H [facility] Rx#: [id number] Cisatracurium 200 mg In 193.343 Sodium Chloride 0.9% 180 ml @ 1 MCG/KG/MIN 8.958 mls/hr IV .[id number] [facility] Rx #:[id number] Diltiazem 125 mg In 83.917 Sodium Chloride 0.9% 100 ml @ Per Protocol IV .Q0M [facility] Rx#:[id number] Norepinephrine 32 mg In 99.914 326.804 137.055 Sodium Chloride 0.9% 218 ml @ 0.05 MCG/KG/MIN 3. 626 mls/hr IV .Q24H [facility] Rx#:[id number] Norepinephrine 8 mg In 31.315 Sodium Chloride 0.9% 250 ml @ 0.05 MCG/KG/MIN 14. 445 mls/hr IV .[id number] [facility] Rx#:[id number] fentaNYL (PF) 1,000 mcg 58.625 In Sodium Chloride 0.9% 80 ml @ Per Protocol IV . Q0M [facility] Rx#:[id number] propofoL 1,000 mg In 262.654 333.042 200 Empty Bag 1 bag @ Titrate IV .Q0M [facility] Rx#: [id number] Tube Feeding 722 123 Other 90 30 Output: Urine 10 20 30 Hemodialysis 500 Other: Voiding Method Indwelling Catheter Indwelling Catheter Indwelling Catheter ABP, PAP, CO, CI - Last Documented Arterial Blood Pressure 79/63 - Exam GENERAL EXAM: Patient is intubated HEENT: Normocephalic. Normal reaction of pupils, equal size, normal range of extraocular motion. No erythema or exudates in the throat. NECK: No masses, no nuchal rigidity. CHEST: No chest wall deformity. LUNGS: Mrs. breath sounds HEART: S1 and S2 normal . Irregular heart sounds ABDOMEN: Soft SKIN: No rashes CENTRAL NERVOUS SYSTEM: Not obtained EXTREMITIES: No cyanosis, clubbing or edema. - Labs CBC & Chem 7: 09/03/20 06:05 09/03/20 06:05 Labs: Abnormal Lab Results - Last 24 Hours (Table) 09/02/20 09/02/20 09/03/20 Range/Units 11:58 17:41 00:18 WBC (3.8-10.6) k/uL RBC (3.80-5.40) m/uL Hgb (11.4-16.0) gm/dL Hct (34.0-46.0) % MCHC (31.0-37.0) g/dL RDW (11.5-15.5) % Neutrophils # (Manual) (1.3-7.7) k/uL Monocytes # (Manual) (0-1.0) k/uL Metamyelocytes # (Man) (0) k/uL Nucleated RBCs (0-0) /100 WBC ABG pH (7.35-7.45) ABG HCO3 (21-25) mmol/L ABG Total CO2 (19-24) mmol/L Sodium (137-145) mmol/L Potassium (3.5-5.1) mmol/L Carbon Dioxide (22-30) mmol/L BUN (7-17) mg/dL Creatinine (0.52-1.04) mg/dL Glucose (74-99) mg/dL POC Glucose (mg/dL) 151 H 183 H 194 H (75-99) mg/dL Calcium (8.4-10.2) mg/dL 09/03/20 09/03/20 09/03/20 Range/Units 00:20 05:56 06:05 WBC (3.8-10.6) k/uL RBC (3.80-5.40) m/uL Hgb (11.4-16.0) gm/dL Hct (34.0-46.0) % MCHC (31.0-37.0) g/dL RDW (11.5-15.5) % Neutrophils # (Manual) (1.3-7.7) k/uL Monocytes # (Manual) (0-1.0) k/uL Metamyelocytes # (Man) (0) k/uL Nucleated RBCs (0-0) /100 WBC ABG pH 7.11 L* (7.35-7.45) ABG HCO3 14 L (21-25) mmol/L ABG Total CO2 15 L (19-24) mmol/L Sodium 132 L (137-145) mmol/L Potassium 6.0 H 6.8 H* (3.5-5.1) mmol/L Carbon Dioxide 10 L (22-30) mmol/L BUN 65 H (7-17) mg/dL Creatinine 5.13 H (0.52-1.04) mg/dL Glucose 139 H (74-99) mg/dL POC Glucose (mg/dL) (75-99) mg/dL Calcium 5.7 L* (8.4-10.2) mg/dL 09/03/20 09/03/20 Range/Units 06:05 06:30 WBC 37.2 H (3.8-10.6) k/uL RBC 2.59 L (3.80-5.40) m/uL Hgb 7.2 L (11.4-16.0) gm/dL Hct 23.6 L (34.0-46.0) % MCHC 30.6 L (31.0-37.0) g/dL RDW 20.3 H (11.5-15.5) % Neutrophils # (Manual) 31.20 H (1.3-7.7) k/uL Monocytes # (Manual) 2.98 H (0-1.0) k/uL Metamyelocytes # (Man) 0.37 H (0) k/uL Nucleated RBCs 6 H (0-0) /100 WBC ABG pH (7.35-7.45) ABG HCO3 (21-25) mmol/L ABG Total CO2 (19-24) mmol/L Sodium (137-145) mmol/L Potassium (3.5-5.1) mmol/L Carbon Dioxide (22-30) mmol/L BUN (7-17) mg/dL Creatinine (0.52-1.04) mg/dL Glucose (74-99) mg/dL POC Glucose (mg/dL) 154 H (75-99) mg/dL Calcium (8.4-10.2) mg/dL Microbiology - Last 24 Hours (Table) 09/02/20 09:20 Acid Fast Bacilli Smear - Final Bronchoalviolar Lavage - Left Acid Fast Bacilli Culture - Preliminary 09/02/20 09:20 Gram Stain - Preliminary Bronchoalviolar Lavage - Left Bronchial Washings Culture - Preliminary 09/02/20 09:20 Fungal Culture - Preliminary Bronchoalviolar Lavage - Left 08/29/20 12:00 Blood Culture - Preliminary Blood No Growth after 72 hours Assessment and Plan (1) Atrial fibrillation with RVR Current Visit: Yes Status: Acute Code(s): I48.91 - UNSPECIFIED ATRIAL FIBRILLATION SNOMED Code(s): 961388024279554 (2) Acute gastrointestinal bleeding Current Visit: Yes Status: Acute Code(s): K92.2 - GASTROINTESTINAL HEMORRHAGE, UNSPECIFIED SNOMED Code(s): 32313437 (3) Morbid obesity Current Visit: Yes Status: Acute Code(s): E66.01 - MORBID (SEVERE) OBESITY DUE TO EXCESS CALORIES SNOMED Code(s): 369936359 (4) Sepsis Current Visit: Yes Status: Acute Code(s): A41.9 - SEPSIS, UNSPECIFIED ORGANISM SNOMED Code(s): 27193979 (5) Ventilator dependence Current Visit: Yes Status: Acute Code(s): Z99.11 - DEPENDENCE ON RESPIRATOR [VENTILATOR] STATUS SNOMED Code(s): 058143353 Plan: Continue by mouth amiodarone. Increase the dose of beta ada. Discontinue IV Cardizem
[2020-09-03 12:48] LABS: Glucose,Whole Blood 90 mg/dL (75-99)
--- NOTE | 2020-09-03 13:27 | P.PN ---
Subjective Progress Note Date: 09/03/20 Principal diagnosis: Acute hypoxic respiratory failure and acute streptococcal pneumonia. On 08/30/2020, the patient remains sedated on propofol and she is calm and comfortable. She remains on a mechanical ventilator. She is intubated by #7.5 orotracheal tube. She is on assist control mode at the rate of 20 with a tidal volume of 450 and FiO2 of 40% with a PEEP of 5. Blood gas showed a pH of 7.37 with a pCO2 of 38 and pO2 97. The chest x-ray shows partial reexpansion of the left upper lobe. There is Still atelectasis of left lower lobe post bronchoscopy and therapeutic it was suctioning and removal of mucous plugs. The patient is having significant amount of mucous plugs. I did a fourth bronchoscopy today where I was able to utilize a regular bronchoscope and I was able to evacuate all of the mucous plugs without any major difficulties and by the completion of today's procedure, the patient taken airways to the left upper lobe, lingula and left lower lobe. The patient meanwhile had an EGD done by gastroenterology. EGD showed a gastric ulcer that was ligated and clipped. This was a 1 cm proximal gastric ulcer distal to the GE junction along the lesser curvature of the stomach. There was also a small hiatal hernia. Noted the patient is off tube feeds pH is not showing any signs of bleeding patient is also off articulation for now. She has requiring boluses levo fed at a dose of 0.04 mg per KG per minute. IV fluids at KVO. The patient is receiving periodic hemodialysis per nephrology will remain to be on the case. My plan was to proceed with a tracheostomy and PEG tube insertion this patient and for that reason general surgery has been consulted for insertion of a tracheostomy and a PEG tube insertion of a later stage. The white cell count is 28. Hemoglobin was at 7.8. The renal function shows a BUN of 76 with a creatinine of 5.36. She remains on IV Unasyn. She did receive packed RBC blood transfusion and hemoglobin has been stable at 7.8. The plan is also to proceed with a hemodialysis ultrafiltration of 3 L of long as the patient is able to tolerate. Reevaluated today on 08/31/20, patient remains in the ICU, intubated and mechanically ventilated. Her ventilator settings are volume control plus of 450 FiO2 40% rate is 20 PEEP is 5. ABG showed a pO2 of 92 pCO2 of 37 pH of 7.37. Chest x-ray which I reviewed earlier this morning showed complete collapse of the left lung suggestive of endobronchial mucous plug. Hence bronchoscopy was performed, and the left lung was lavaged. Patient is scheduled to undergo trac heostomy and PEG tube placement today. Patient is on Cardizem drip at 10 mg per hour, propofol at 55 mcg/kg/m, she has a PICC line in the left brachial area, and she has a right radial arterial line. Again she scheduled to have tracheostomy and PEG tube today. Patient is sedated on propofol, looking at the previous notes by my partners, this is today the fifth bronchoscopy to clear mucous plugs from the left lung. Patient also had previous EGD and gastric ulcer was noted proximally. This was ligated and clipped by gastroenterology. Patient remains on hemodialysis. Nephrology remains on the case. She remains on Unasyn for her pneumonia. WBC count today is 20.6 hemoglobin is 7.3. Lindsey telets are normal. Electrolytes are normal. BUN is 66 creatinine is 5.2 1. patient is not requiring any pressors, she is hemodynamically stable. Her enteral feeding is presently on hold, will resume this tomorrow after placement of the PEG tube likely today. Patient was reevaluated today on 09/02/20, remains intubated and mechanically ventilated, however the patient seems to be extremely agitated, none synchronous with mechanical ventilation, try to increase her propofol, did not seem to help much, placed on fentanyl, did not improve her pulmonary status, although her chest x-ray is showing significant improvement but continues to have significant left lower lobe consolidation, left lung seems to be better today compared to yesterday. Patient was placed on Nimbex drip, her ventilator settings are volume control plus, rate of 20 tidal volume is 450 FiO2 is 40% and PEEP is 5. ABG this morning showed a pO2 of 108 pCO2 of 37 pH of 7.36. Patient is on multiple drips including norepinephrine at 0.15 mcg/kg/m, she is also on propofol at 55 mcg/kg/m and this was increased up to 75. She was on Cardizem which I have discontinued and recommended patient to go on amiodarone seems to be lowering her blood pressure without significant effect on her heart rate. And I have consulted cardiology to evaluate. WBC count today is high at 19.0 hemoglobin is 7.4. Electrolytes are normal however her BUN is 58 creatinine 4.81, and the patient is undergoing dialysis again today. Chest x-ray showed better aeration of the left upper lobe and left midlung, continues to have left basilar consolidation. Reevaluated today on 09/02/20, patient does not seem to be doing well today. Remains intubated, and mechanically ventilated. Her chest x-ray showed complete collapse of the left lung requiring bronchoscopy and lavage of the left lung, and he mucous plugs were lavaged from the left mainstem bronchus, left upper lobe, lingula, and left lower lobe. These were actually bloody mucous plugs, removed and the whole left lung was cleared visually with the bronchoscope. Patient is on mechanical ventilation assist control rate of 26 FiO2 is 40% tidal volume is 450 PEEP is 5. ABG this morning showed a pO2 of 75 pCO2 of 40 0 pH of 7.23, hence 2 A of bicarb were given as soon as I evaluated the patient. Patient is spiking fevers, she is requiring more pressors,/on norepinephrine, patient is also in atrial fibrillation with RVR requiring Cardizem and amiodarone. Her drips are fentanyl at 0.3 mcg/kg/h. Cardizem at 5 mg per hour. Levo fed at 30 mcg/kg/m, Nimbex at 20 mcg/kg/m, and amiodarone drip at 1 mg/h. Patient was bronchoscoped, BAL done, fluid was sent for diagnostic studies, and we have ordered more blood cultures, 2 A of bicarb were given, antibiotics drummond, the patient is only on antifungal therapy she is being followed by infectious disease, I did recommend a dose of vancomycin, and added Zosyn awaiting the report from the blood cultures. Clinically the patient is septic. Based on the blood cultures, antibiotics will be adjusted accordingly they would also be adjusted according to the cultures from the BAL of the left lung. Patient was reevaluated today on 09/03/20, remains in the ICU, intubated and mechanically ventilated. Chest x-ray today looks better she better aeration of the left upper lobe and left midlung, however the left lower lobe remains c onsolidated. Ventilator settings are assist control rate of 26 volume control +450 inspiratory time is 0.8 FiO2 is 50% and PEEP is 8 ABG showed a pO2 of 88 pCO2 of 42 pH of 7.11, patient remains on dialysis, in the meantime considering her elevated potassium and low pH, recommended 2 A of bicarb to be given. Patient remains on Nimbex and on propofol drip. She will be dialyzed today. And she did receive 2 A of bicarb S1 as a evaluated the patient. Patient is also on norepinephrine at 0.35 mcg/kg/m, she is also on Cardizem at 5 mg per hour, fentanyl at 0.3 mcg/kg per hour. Nimbex 1 mcg/kg/m. Yesterday considering the patient was felt to be septic, we went ahead and added vancomycin and Zosyn. Patient is also on oral vancomycin for C. difficile colitis. WBC count today is 37.2 hemoglobin is 7.2. Potassium is as high as 6.8, being addressed by nephrology, patient is going to be dialyzed. Objective - Vital Signs Vital signs: Vital Signs Temp 97.9 F 09/03/20 12:00 Pulse 93 09/03/20 13:00 Resp 26 H 09/03/20 13:00 BP 96/62 09/03/20 13:00 Pulse Ox 98 09/03/20 13:00 Intake & Output 09/02/20 09/03/20 09/03/20 18:59 06:59 18:59 Intake Total 2074.883 7357.347 6815.055 Output Total 510 20 30 Balance 1361.164 6375.731 1339.055 Weight 154.7 kg 158.2 kg Intake: IV 869 243 879 0.9 Normal Saline at 10mL 130 110 40 /hr as KVO Anidulafungin 100 mg In 100 84 Sodium Chloride 0.9% 100 ml @ 84 mls/hr IVPB DAILY [facility] Rx#:[id number] Dextrose 5% in Water 1, 300 000 ml @ 75 mls/hr IV . [id number] [facility] with Sodium Bicarb (1 Meq/ml) 150 ml Rx#:[id number] Piperacillin-Tazobactam 3 100 100 100 .375 gm In Sodium Chloride 0.9% 100 ml @ 25 mls/hr IVPB Q12HR [facility] Rx #:[id number] Pressure Bag 39 33 21 Vancomycin 2,250 mg In 500 334 Sodium Chloride 0.9% 500 ml 500 ml @ 167 mls/hr IVPB ONCE ONE Rx#: [id number] Intake, IV Titration 043.543 3727.731 337.055 Amount Amiodarone 300 mg In 250 Dextrose 5% in Water 250 ml @ 0.5 MG/MIN 25 mls/hr IV .Q10H [facility] Rx#: [id number] Cisatracurium 200 mg In 193.343 Sodium Chloride 0.9% 180 ml @ 1 MCG/KG/MIN 8.958 mls/hr IV .[id number] [facility] Rx #:[id number] Diltiazem 125 mg In 83.917 Sodium Chloride 0.9% 100 ml @ Per Protocol IV .Q0M [facility] Rx#:[id number] Norepinephrine 32 mg In 99.914 326.804 137.055 Sodium Chloride 0.9% 218 ml @ 0.05 MCG/KG/MIN 3. 626 mls/hr IV .Q24H [facility] Rx#:[id number] Norepinephrine 8 mg In 31.315 Sodium Chloride 0.9% 250 ml @ 0.05 MCG/KG/MIN 14. 445 mls/hr IV .[id number] [facility] Rx#:[id number] fentaNYL (PF) 1,000 mcg 58.625 In Sodium Chloride 0.9% 80 ml @ Per Protocol IV . Q0M [facility] Rx#:[id number] propofoL 1,000 mg In 262.654 333.042 200 Empty Bag 1 bag @ Titrate IV .Q0M [facility] Rx#: [id number] Tube Feeding 722 123 Other 90 30 Output: Urine 10 20 30 Hemodialysis 500 Other: Voiding Method Indwelling Catheter Indwelling Catheter Indwelling Catheter ABP, PAP, CO, CI - Last Documented Arterial Blood Pressure 79/63 - Exam Physical Exam: Revealed a 55-year-old female morbidly obese, sedated and paralyzed. Head: Atraumatic normocephalic. Tracheostomy tube is intact. EENT: PERRLA, EOMI, extremely dry mucous membranes noted. [Neck is supple.] [No neck masses.] [No thyromegaly.] [No JVD.] Tracheostomy tube is intact. Chest: Crackles and rhonchi noted diminished breath sound on the left side. Cardiac Exam: Distant S1 and S2, no S3 gallop. No murmur. Abdomen: Morbidly obese, [Soft, nontender, no megaly, no rebound, no guarding, normal bowel sounds.] Extremities: [No clubbing, 1+ bipedal edema, no cyanosis.] Diminished pulses bilaterally. Left brachial PICC line is noted, and the right radial arterial line dialysis catheter is noted in the left groin. Neurological Exam: Could not assess, patient is sedated and paralyzed. Psychiatric: Could not be assessed. Skin: No rashes. - Labs CBC & Chem 7: 09/03/20 06:05 09/03/20 06:05 Labs: Abnormal Lab Results - Last 24 Hours (Table) 09/02/20 09/03/20 09/03/20 Range/Units 17:41 00:18 00:20 WBC (3.8-10.6) k/uL RBC (3.80-5.40) m/uL Hgb (11.4-16.0) gm/dL Hct (34.0-46.0) % MCHC (31.0-37.0) g/dL RDW (11.5-15.5) % Neutrophils # (Manual) (1.3-7.7) k/uL Monocytes # (Manual) (0-1.0) k/uL Metamyelocytes # (Man) (0) k/uL Nucleated RBCs (0-0) /100 WBC ABG pH (7.35-7.45) ABG HCO3 (21-25) mmol/L ABG Total CO2 (19-24) mmol/L Sodium (137-145) mmol/L Potassium 6.0 H (3.5-5.1) mmol/L Carbon Dioxide (22-30) mmol/L BUN (7-17) mg/dL Creatinine (0.52-1.04) mg/dL Glucose (74-99) mg/dL POC Glucose (mg/dL) 183 H 194 H (75-99) mg/dL Calcium (8.4-10.2) mg/dL 09/03/20 09/03/20 09/03/20 Range/Units 05:56 06:05 06:05 WBC 37.2 H (3.8-10.6) k/uL RBC 2.59 L (3.80-5.40) m/uL Hgb 7.2 L (11.4-16.0) gm/dL Hct 23.6 L (34.0-46.0) % MCHC 30.6 L (31.0-37.0) g/dL RDW 20.3 H (11.5-15.5) % Neutrophils # (Manual) 31.20 H (1.3-7.7) k/uL Monocytes # (Manual) 2.98 H (0-1.0) k/uL Metamyelocytes # (Man) 0.37 H (0) k/uL Nucleated RBCs 6 H (0-0) /100 WBC ABG pH 7.11 L* (7.35-7.45) ABG HCO3 14 L (21-25) mmol/L ABG Total CO2 15 L (19-24) mmol/L Sodium 132 L (137-145) mmol/L Potassium 6.8 H* (3.5-5.1) mmol/L Carbon Dioxide 10 L (22-30) mmol/L BUN 65 H (7-17) mg/dL Creatinine 5.13 H (0.52-1.04) mg/dL Glucose 139 H (74-99) mg/dL POC Glucose (mg/dL) (75-99) mg/dL Calcium 5.7 L* (8.4-10.2) mg/dL 09/03/20 Range/Units 06:30 WBC (3.8-10.6) k/uL RBC (3.80-5.40) m/uL Hgb (11.4-16.0) gm/dL Hct (34.0-46.0) % MCHC (31.0-37.0) g/dL RDW (11.5-15.5) % Neutrophils # (Manual) (1.3-7.7) k/uL Monocytes # (Manual) (0-1.0) k/uL Metamyelocytes # (Man) (0) k/uL Nucleated RBCs (0-0) /100 WBC ABG pH (7.35-7.45) ABG HCO3 (21-25) mmol/L ABG Total CO2 (19-24) mmol/L Sodium (137-145) mmol/L Potassium (3.5-5.1) mmol/L Carbon Dioxide (22-30) mmol/L BUN (7-17) mg/dL Creatinine (0.52-1.04) mg/dL Glucose (74-99) mg/dL POC Glucose (mg/dL) 154 H (75-99) mg/dL Calcium (8.4-10.2) mg/dL Microbiology - Last 24 Hours (Table) 09/02/20 09:20 Gram Stain - Preliminary Bronchoalviolar Lavage - Left Bronchial Washings Culture - Preliminary 09/02/20 09:20 Acid Fast Bacilli Smear - Final Bronchoalviolar Lavage - Left Acid Fast Bacilli Culture - Preliminary 09/02/20 09:20 Fungal Culture - Preliminary Bronchoalviolar Lavage - Left 08/29/20 12:00 Blood Culture - Preliminary Blood No Growth after 72 hours Assessment and Plan Assessment: Impression: Acute hypoxic and hypercapnic respiratory failure secondary to pneumonia, this is mostly streptococcal pneumonia. Recurrent collapse of the left lung secondary to mucous plugs requiring bronchoscopy, patient required bronchoscopy and lavage of the left lung 6 times already , last bronchoscopy was yesterday. Acute kidney injury currently hemodialysis dependent. Upper GI bleeding requiring EGD and clipping of ulcer at the lesser curvature of the stomach. Persistent leukocytosis. Suspect ongoing sepsis. Repeat cultures in the last 2 days have been nondiagnostic so far Paroxysmal atrial fibrillation , on Cardizem and amiodarone, being addressed by cardiology. Acute metabolic,encephalopathy. Acute left lower lobe pneumonia, secondary to Streptococcus pneumonia based on the sputum cultures. Sepsis and septic shock secondary to left lower lobe pneumonia Acute exacerbation of moderate persistent bronchial asthma secondary to pneumonia. Obstructive sleep apnea syndrome. Obesity/hypoventilation syndrome. Type 2 diabetes. History of depression and generalized anxiety disorder. History of hypothyroidism. Status post tracheostomy on 08/31/20, could not undergo PEG feeding tube placement. Sepsis and septic shock requiring broadening the spectrum of antibiotics, and awaiting blood cultures. Acute C. difficile colitis. Recommendation: Continue ventilatory support, Continue sedatives and paralytics at this point. Considering her condition and the fact that she is extremely unstable today, no plans to wean or assess mental status. Continue nutritional support via nasogastric tube, Continue amiodarone for atrial fibrillation. And Cardizem. Continue GI and DVT prophylaxis. Continue propofol and fentanyl and Nimbex Continue Eraxis, IV vancomycin, Zosyn, and oral vancomycin. Continue GI and DVT prophylaxis. Continue hemodialysis. Bicarb ip if the patient doesn't improve with dialysis Continue close monitoring of all her labs including electrolytes and renal profile. Continue daily x-rays of the chest. Cannot assess mental status since the patient is requiring paralysis and sedation. Overall prognosis remains extremely poor and guarded, Patient is not ready for any weaning today. Critical care time is 32 minutes Time with Patient: Greater than 30
[2020-09-03] MEDS ORDERED: HEPARIN SODIUM,PORCINE 5,000 UNIT/ML 1 ML VIAL ONE (13:45)
[2020-09-03 16:57] LABS: Glucose,Whole Blood 73 mg/dL (75-99)
[2020-09-03] MEDS: CISATRACURIUM 200 MG in SODIUM CHLORIDE 0.9% 180 ML IV SCH (18:39)
[2020-09-03] MEDS: fentaNYL (PF) 1,000 MCG in SODIUM CHLORIDE 0.9% 80 ML IV SCH (18:39)
[2020-09-03 20:34] LABS: ABG Base Excess -24.6 mmol/L; ABG Oxygen Saturation 83.7 % (94-97); ABG PCO2 40 mmHg (35-45); ABG PO2 71 mmHg (83-108); ABG TCO2 9 mmol/L (19-24)
[2020-09-03 20:38] LABS: Allen Test Performed? no
[2020-09-03] MEDS ORDERED: MAGNESIUM SULFATE SYG 4.06 MEQ/ML SYRINGE ONE (20:39)
[2020-09-03] MEDS ORDERED: NOREPINEPHRINE 1 MG/ML 4 ML VIAL IV ONE (20:39)
[2020-09-03] MEDS ORDERED: EPINEPHrine 10 ML SYRINGE (0.1 MG/ML) ONE (20:39)
[2020-09-03] MEDS ORDERED: DEXTROSE 5% IN WATER 250 ML BAG IV ONE (20:39)
[2020-09-03] MEDS ORDERED: CALCIUM CHLORIDE 100 MG/ML 10 ML SYRINGE ONE (20:39)
--- NOTE | 2020-09-03 22:29 | P.PN ---
Subjective 55-year-old female patient was morbid obesity as well as multiple comorbid conditions who was admitted to the hospital with acute hypoxic respiratory failure secondary to pneumonia and she was intubated and placed on mechanical ventilation. Patient has been followed closely by pulmonary service, her lung today was completely collapsed on the left side commissioned oriented bronchoscopy as per pulmonary team with removal of the mucous plug. She remains 1 or spectrum antibiotics with Eraxis and daptomycin. For her sepsis and oral candidiasis. Also she is on oral vancomycin For C. diff colitis. Also she is on dialysis for her acute kidney injury. A GI team evaluated the patient and had endoscopy with EGD showing gastric ulcer status post clipping. Surgery team also on the case and planning for PEG tube and tracheostomy placement today. Her chest x-ray today was showing complete collapse of the left side. WBC is 20.6 K, hemoglobin 7.3. BMP is unremarkable and she has high creatinine 09/01/2020 Patient remains in the ICU in critical condition, she's intubated and on mechanical ventilation, no wheezing and a trial was done today, patient on the other side and she was agitated and the base was started. Chest x-ray showed left lower lobe consolidation. She underwent tracheostomy yesterday She is tachypneic and tachycardic and Cardizem drip was switched to amiodarone drip with cartilage team were consulted. She has leukocytosis of 19 K, slightly trending down. Daptomycin was discontinued. Patient continued to be on Eraxis and Oral vancomycin for C. diff colitis, infectious disease on the case. Creatinine elevated secondary to septic shock, she is undergoing hemodialysis per nephrology team, she will need permacath sometime later on. Prognosis remains guarded\ 09/02/2020 Patient remains in the ICU intubated and sedated, patient actually today was getting worse, she developed A. fib and RVR that needed to amiodarone drip and later on Cardizem drip, oil lease broker evaluated the patient and recommended to continue with metoprolol, echocardiogram is ordered and is pending She had fever and needed higher dose of Levophed, her antibiotics changed to Zosyn and IV vancomycin 1 on the top of oral vancomycin for her positive for C. diff and stool as well as Eraxis. WBC is worse today at 2013. Culture are pen ding and recent chest x-ray was showing persistent left lower lobe consolidation. She is followed by nephrology team for hemodialysis, and she might need permacath. 09/03/2020 Patient remains in the ICU on mechanical ventilation not ready for weaning trial. Patient is managed by pulmonary/critical care team. Yesterday she was getting worse and she was needed higher doses of Levothroid at 0.35 today. Repeat Chest x-ray showing left basilar opacity persist with irrigation now identified of the left upper lobe. Mild patchy density right perihilar region. Patient was started on IV vancomycin and Zosyn however Zosyn was stopped today, she continue with oral vancomycin for C. diff and infectious disease team on the case. Also oil lease broker following the patient for A. fib and she was on Cardizem drip at 5 mg per hour however oil lease broker recommended to stop Cardizem drip and to continue with amiodarone and increase dose of metoprolol to 25 mg 3 times a day. Surgical team are planning for PEG tube and trach placement next week WBC trending up to 37K today, hemoglobin is stable at 7.2, and potassium is elevated at 6.8. Patient yesterday had a fever over 102 however patient today is afebrile Review of systems: N/a Active Medications Generic Name Dose Route Start Last Admin Trade Name Freq PRN Reason Stop Dose Admin Albuterol/Ipratropium 3 ml 08/16/20 09:26 Ipratropium-Albuterol 3 Ml Neb INHALATION RT-Q2H PRN Shortness Of Breath Or Wheezing Albuterol/Ipratropium 3 ml 08/18/20 12:00 09/03/20 19:05 Ipratropium-Albuterol 3 Ml Neb INHALATION 3 ml RT-Q4H FREDRICK Administration Amiodarone HCl 400 mg 09/03/20 09:00 09/03/20 09:22 Amiodarone 200 Mg Tab PO 400 mg BID FREDRICK Administration Artificial Tears 2 drops 09/01/20 12:00 09/03/20 16:21 Artificial Tears-Hypromellose Drops 15 Ml Btl BOTH EYES 2 drops Q4HR FREDRICK Administration Budesonide 1 mg 08/16/20 20:00 09/03/20 19:05 Budesonide 1 Mg/2 Ml Nebu INHALATION 1 mg RT-BID FREDRICK Administration Calcium Acetate 667 mg 08/24/20 17:30 09/03/20 16:21 Calcium Acetate 667 Mg Tab PO 667 mg TID-W/MEALS FREDRICK Administration Darbepoetin Sammy 40 mcg 08/28/20 16:00 08/28/20 16:37 Darbepoetin Sammy 40 Mcg/0.4 Ml Syringe SQ 40 mcg Q7D FREDRICK Administration Ergocalciferol 50,000 unit 08/21/20 09:00 09/03/20 09:11 Ergocalciferol 50,000 Unit Cap PO Not Given DAILY FREDRICK Formoterol Fumarate 20 mcg 08/16/20 20:00 09/03/20 19:05 Formoterol Fumarate 20 Mcg/2 Ml Nebu INHALATION 20 mcg RT-BID FREDRICK Administration Anidulafungin 100 mg/ Sodium 100 mls @ 84 mls/hr 08/23/20 09:00 09/03/20 09:22 Chloride IVPB 84 mls/hr DAILY FREDRICK Administration Propofol 1,000 mg/ IV Solution 100 mls @ 0 mls/hr 08/29/20 20:00 09/03/20 16:54 IV 50 mcg/kg/min .Q0M FREDRICK 46.41 mls/hr Administration Protocol Titrate Lactated Ringer's 1,000 mls @ 20 mls/hr 08/31/20 10:18 09/03/20 09:47 Lactated Ringers IV Not Given .Q24H FREDRICK Fentanyl Citrate 1,000 mcg/ 100 mls @ 0 mls/hr 09/01/20 08:45 09/03/20 18:39 Sodium Chloride IV 0.2 mcg/kg/hr .Q0M FREDRICK 2.986 mls/hr Administration Protocol Per Protocol Cisatracurium Besylate 200 mg/ 200 mls @ 8.958 mls/hr 09/01/20 09:15 09/03/20 18:39 Sodium Chloride IV 1 mcg/kg/min .[id number] FREDRICK 8.958 mls/hr Administration Protocol 1 MCG/KG/MIN Norepinephrine Bitartrate 32 250 mls @ 3.626 mls/hr 09/02/20 10:15 09/03/20 13:50 mg/ Sodium Chloride IV 0.26 mcg/kg/min .Q24H FREDRICK 18.854 mls/hr Administration Protocol 0.05 MCG/KG/MIN Sodium Bicarbonate 150 ml/ 1,150 mls @ 75 mls/hr 09/03/20 08:00 09/03/20 09:06 Dextrose/Water IV 75 mls/hr .[id number] FREDRICK Administration Insulin Aspart 0 unit 08/17/20 00:00 09/03/20 16:56 Insulin Aspart (Novolog) 100 Unit/Ml Vial SQ Not Given Q6H FREDRICK Protocol Levothyroxine Sodium 200 mcg 08/16/20 14:15 09/03/20 07:03 Levothyroxine 100 Mcg Tab PO 200 mcg DAILY@0630 FREDRICK Administration Metoprolol Tartrate 25 mg 09/03/20 16:00 09/03/20 14:48 Metoprolol Tartrate 25 Mg Tab PO 25 mg TID FREDRICK Administration Miscellaneous Information 1 each 09/02/20 10:18 Vancomycin Iv Per Pharmacy 1 Each Misc MISCELLANE DIRECTED PRN Per Protocol Protocol Naloxone HCl 0.2 mg 08/15/20 22:05 Naloxone 0.4 Mg/Ml 1 Ml Vial IV Q2M PRN Opioid Reversal Pantoprazole Sodium 40 mg 08/17/20 09:00 09/03/20 09:47 Pantoprazole 40 Mg/10 Ml Vial IVP 40 mg DAILY FREDRICK Administration Paroxetine HCl 40 mg 08/17/20 09:00 09/03/20 09:40 Paroxetine 20 Mg Tab PO 40 mg DAILY FREDRICK Administration Sodium Bicarbonate 650 mg 09/02/20 16:00 09/03/20 16:21 Sodium Bicarbonate Tab 650 Mg Tab PO 650 mg TID FREDRICK Administration Vancomycin HCl 250 mg 08/29/20 18:00 09/03/20 16:56 Vancomycin Oral Solution 250 Mg/5 Ml Bottle PO 250 mg Q6HR FREDRICK Administration Objective - Vital Signs Vital signs: Vital Signs Temp 97.9 F 09/03/20 16:00 Pulse 92 09/03/20 19:26 Resp 26 H 09/03/20 19:00 BP 94/41 09/03/20 19:00 Pulse Ox 98 09/03/20 19:00 Intake & Output 09/03/20 09/03/20 09/04/20 06:59 18:59 06:59 Intake Total 9134.200 2615.553 78 Output Total 2034 Balance 1468.731 560.553 78 Weight 158.2 kg Intake: IV 243 1269 78 0.9 Normal Saline at 10mL 110 40 /hr as KVO Anidulafungin 100 mg In 84 Sodium Chloride 0.9% 100 ml @ 84 mls/hr IVPB DAILY [facility] Rx#:[id number] Dextrose 5% in Water 1, 675 75 000 ml @ 75 mls/hr IV . [id number] FREDRICK with Sodium Bicarb (1 Meq/ml) 150 ml Rx#:[id number] Piperacillin-Tazobactam 3 100 100 .375 gm In Sodium Chloride 0.9% 100 ml @ 25 mls/hr IVPB Q12HR [facility] Rx #:[id number] Pressure Bag 33 36 3 Vancomycin 2,250 mg In 334 Sodium Chloride 0.9% 500 ml 500 ml @ 167 mls/hr IVPB ONCE ONE Rx#: [id number] Intake, IV Titration 1245.731 826.553 Amount Amiodarone 300 mg In 250 Dextrose 5% in Water 250 ml @ 0.5 MG/MIN 25 mls/hr IV .Q10H [facility] Rx#: [id number] Cisatracurium 200 mg In 193.343 172.591 Sodium Chloride 0.9% 180 ml @ 1 MCG/KG/MIN 8.958 mls/hr IV .[id number] [facility] Rx #:[id number] Diltiazem 125 mg In 83.917 Sodium Chloride 0.9% 100 ml @ Per Protocol IV .Q0M [facility] Rx#:[id number] Norepinephrine 32 mg In 326.804 198.645 Sodium Chloride 0.9% 218 ml @ 0.05 MCG/KG/MIN 3. 626 mls/hr IV .Q24H [facility] Rx#:[id number] fentaNYL (PF) 1,000 mcg 58.625 57.082 In Sodium Chloride 0.9% 80 ml @ Per Protocol IV . Q0M [facility] Rx#:[id number] propofoL 1,000 mg In 333.042 398.235 Empty Bag 1 bag @ Titrate IV .Q0M [facility] Rx#: [id number] Tube Feeding 410 Other 90 Output: Urine 20 35 Hemodialysis 1999 Other: Voiding Method Indwelling Catheter Indwelling Catheter ABP, PAP, CO, CI - Last Documented Arterial Blood Pressure 79/63 - Exam GENERAL: The patient is intubated and sedated HEENT: Pupils are round and equally reacting to light. EOMI. No scleral icterus. No conjunctival pallor. Normocephalic, atraumatic. No pharyngeal erythema. No thyromegaly. CARDIOVASCULAR: S1 and S2 present. No murmurs, rubs, or gallops. PULMONARY: Chest is clear to auscultation, no wheezing or crackles. ABDOMEN: Soft, nontender, nondistended, normoactive bowel sounds. No palpable organomegaly. MUSCULOSKELETAL: No joint swelling or deformity. EXTREMITIES: No cyanosis, clubbing, or pedal edema. NEUROLOGICAL: Gross neurological examination did not reveal any focal deficits. SKIN: No rashes. no petechiae. - Labs CBC & Chem 7: 09/03/20 06:05 09/03/20 06:05 Labs: Abnormal Lab Results - Last 24 Hours (Table) 09/03/20 09/03/20 09/03/20 Range/Units 00:18 00:20 05:56 WBC (3.8-10.6) k/uL RBC (3.80-5.40) m/uL Hgb (11.4-16.0) gm/dL Hct (34.0-46.0) % MCHC (31.0-37.0) g/dL RDW (11.5-15.5) % Neutrophils # (Manual) (1.3-7.7) k/uL Monocytes # (Manual) (0-1.0) k/uL Metamyelocytes # (Man) (0) k/uL Nucleated RBCs (0-0) /100 WBC ABG pH 7.11 L* (7.35-7.45) ABG pO2 (83-108) mmHg ABG HCO3 14 L (21-25) mmol/L ABG Total CO2 15 L (19-24) mmol/L ABG O2 Saturation (94-97) % Sodium (137-145) mmol/L Potassium 6.0 H (3.5-5.1) mmol/L Carbon Dioxide (22-30) mmol/L BUN (7-17) mg/dL Creatinine (0.52-1.04) mg/dL Glucose (74-99) mg/dL POC Glucose (mg/dL) 194 H (75-99) mg/dL Calcium (8.4-10.2) mg/dL 09/03/20 09/03/2009/03/20 Range/Units 06:05 06:05 06:30 WBC 37.2 H (3.8-10.6) k/uL RBC 2.59 L (3.80-5.40) m/uL Hgb 7.2 L (11.4-16.0) gm/dL Hct 23.6 L (34.0-46.0) % MCHC 30.6 L (31.0-37.0) g/dL RDW 20.3 H (11.5-15.5) % Neutrophils # (Manual) 31.20 H (1.3-7.7) k/uL Monocytes # (Manual) 2.98 H (0-1.0) k/uL Metamyelocytes # (Man) 0.37 H (0) k/uL Nucleated RBCs 6 H (0-0) /100 WBC ABG pH (7.35-7.45) ABG pO2 (83-108) mmHg ABG HCO3 (21-25) mmol/L ABG Total CO2 (19-24) mmol/L ABG O2 Saturation (94-97) % Sodium 132 L (137-145) mmol/L Potassium 6.8 H* (3.5-5.1) mmol/L Carbon Dioxide 10 L (22-30) mmol/L BUN 65 H (7-17) mg/dL Creatinine 5.13 H (0.52-1.04) mg/dL Glucose 139 H (74-99) mg/dL POC Glucose (mg/dL) 154 H (75-99) mg/dL Calcium 5.7 L* (8.4-10.2) mg/dL 09/03/20 09/03/20 Range/Units 16:55 20:30 WBC (3.8-10.6) k/uL RBC (3.80-5.40) m/uL Hgb (11.4-16.0) gm/dL Hct (34.0-46.0) % MCHC (31.0-37.0) g/dL RDW (11.5-15.5) % Neutrophils # (Manual) (1.3-7.7) k/uL Monocytes # (Manual) (0-1.0) k/uL Metamyelocytes # (Man) (0) k/uL Nucleated RBCs (0-0) /100 WBC ABG pH 6.91 L* (7.35-7.45) ABG pO2 71 L (83-108) mmHg ABG HCO3 8 L* (21-25) mmol/L ABG Total CO2 9 L (19-24) mmol/L ABG O2 Saturation 83.7 L (94-97) % Sodium (137-145) mmol/L Potassium (3.5-5.1) mmol/L Carbon Dioxide (22-30) mmol/L BUN (7-17) mg/dL Creatinine (0.52-1.04) mg/dL Glucose (74-99) mg/dL POC Glucose (mg/dL) 73 L (75-99) mg/dL Calcium (8.4-10.2) mg/dL Microbiology - Last 24 Hours (Table) 09/02/20 13:30 Blood Culture Gram Stain - Preliminary Blood 09/02/20 13:30 Blood Culture - Final Blood 08/29/20 12:00 Blood Culture - Preliminary Blood No Growth after 96 hours 09/02/20 09:20 Gram Stain - Preliminary Bronchoalviolar Lavage - Left Bronchial Washings Culture - Preliminary 09/02/20 09:20 Acid Fast Bacilli Smear - Final Bronchoalviolar Lavage - Left Acid Fast Bacilli Culture - Preliminary Assessment and Plan Assessment: Acute hypoxic respiratory failuresecondary to pneumonia. patient remains intub ated and mechanically ventilated.S/p bronchoscopy due to recurrent mucous plugs and left side opacity. Sepsis, secondary to Streptococcal pneumonia. C. diff colitis Acute GI bleed status post EGD showing gastric ulcer. Status post clipping Paroxysmal atrial fibrillation with RVR Cardiomyopathy, unknown if ischemic or nonischemic, EF 30-35% Metabolic encephalopathy secondary to above Severe pulmonary hypertension Acute kidney injury Secondary to ATN currently requiring hemodialysis History of asthma Hypothyroidism Morbid obesity with a BMI 56.3 Plan: This is a 55 years old female who presents with multiple protocol problems as out. Continue with ICU management. Pulmonary/critical care team on the case, vent management as per pulmonary team. Continue with broad-spectrum antibiotic with eraxes and oral vancomycin as per ID team recommendation. Also Zosyn. Continue amiodarone drip as per oil lease broker recommendation . Continue with hemodialysis as per nephrology team. Continue with IV Protonix. Surgery team for PEG tube placement and tracheostomy, Also patient may need permacath for dialysis Labs and medication were reviewed.. Continue same treatment. Continue with symptomatic treatment. Resume home medication. Monitor lytes and vitals. DVT and GI prophylaxis. Further recommendationsas per clinical course of the patient DVT prophylaxis: No heparin remain in view old Lead GI Prophylaxis: Ppi Prognosis is guarded
--- NOTE | 2020-09-03 22:29 | P.EN ---
REDD GURROLA team note REDD GURROLA activated at 2038. Arrived on the scene shortly after. The patient was undergoing CPR. Discussed the case with the patient's RN and reviewed the chart. The patient was noted to be an PEA with a wide complex rhythm. ROSC was achieved at 2099. The patient then again lost her pulse with PEA. Discussed the case with the over the phone twice. After the second incidence of cardiac arrest, the informed me that he does not wish for us to continue CPR. The patient was in asystole at that time. She received a total of Epi IVP x 6, Bicarb IVP x 4, calcium chloride x 2. The patient was pronounced at 2105. Primary team and animal trainer were notified.
[2020-09-03 23:06] VITALS: BP 54/25; PULSE 142; RESP 8; TEMP 97.5
[2020-09-04] MEDS: IPRATROPIUM-ALBUTEROL 3 ML NEB INHALATION SCH (01:46)
[2020-09-04] MEDS: METOPROLOL TARTRATE 25 MG TAB PO SCH (02:51)
[2020-09-04 08:15] LABS: ABG PH 6.91 (7.35-7.45)
[2020-09-04 08:16] LABS: ABG HCO3 8 mmol/L (21-25)
== END 2020-09-03 21:06 | disposition expired | DRG 3 ==
LOC: EC 21:37 → 2SICU 22:29
PROVIDERS: ADMIT Hospitalist; ATTEND Hospitalist
PROC: 0D9670Z Drainage of Stomach with Drainage Device, Via Natural or Artificial Opening (ICD-10-PCS; 2020-08-16)
PROC: 0BH17EZ Insertion of Endotracheal Airway into Trachea, Via Natural or Artificial Opening (ICD-10-PCS; 2020-08-17)
PROC: 5A1955Z Respiratory Ventilation, Greater than 96 Consecutive Hours (ICD-10-PCS; 2020-08-17)
PROC: 03HY32Z Insertion of Monitoring Device into Upper Artery, Percutaneous Approach (ICD-10-PCS; 2020-08-17)
PROC: 02HV33Z Insertion of Infusion Device into Superior Vena Cava, Percutaneous Approach (ICD-10-PCS; 2020-08-17)
PROC: 0WCQ8ZZ Extirpation of Matter from Respiratory Tract, Via Natural or Artificial Opening Endoscopic (ICD-10-PCS; 2020-08-17 08:30)
PROC: 0BCJ8ZZ Extirpation of Matter from Left Lower Lung Lobe, Via Natural or Artificial Opening Endoscopic (ICD-10-PCS; 2020-08-18)
PROC: 0B9J8ZX Drainage of Left Lower Lung Lobe, Via Natural or Artificial Opening Endoscopic, Diagnostic (ICD-10-PCS; 2020-08-18)
PROC: 02HV33Z Insertion of Infusion Device into Superior Vena Cava, Percutaneous Approach (ICD-10-PCS; 2020-08-20)
PROC: 5A1D70Z Performance of Urinary Filtration, Intermittent, Less than 6 Hours Per Day (ICD-10-PCS; 2020-08-20)
PROC: 03HY32Z Insertion of Monitoring Device into Upper Artery, Percutaneous Approach (ICD-10-PCS; 2020-08-26)
PROC: 4A133J1 Monitoring of Arterial Pulse, Peripheral, Percutaneous Approach (ICD-10-PCS; 2020-08-26)
PROC: 4A133B1 Monitoring of Arterial Pressure, Peripheral, Percutaneous Approach (ICD-10-PCS; 2020-08-26)
PROC: 0BC78ZZ Extirpation of Matter from Left Main Bronchus, Via Natural or Artificial Opening Endoscopic (ICD-10-PCS; 2020-08-27)
PROC: 0BCB8ZZ Extirpation of Matter from Left Lower Lobe Bronchus, Via Natural or Artificial Opening Endoscopic (ICD-10-PCS; 2020-08-29)
PROC: 0W3P8ZZ Control Bleeding in Gastrointestinal Tract, Via Natural or Artificial Opening Endoscopic (ICD-10-PCS; 2020-08-30)
PROC: 0BCB8ZZ Extirpation of Matter from Left Lower Lobe Bronchus, Via Natural or Artificial Opening Endoscopic (ICD-10-PCS; 2020-08-30)
PROC: 0BC78ZZ Extirpation of Matter from Left Main Bronchus, Via Natural or Artificial Opening Endoscopic (ICD-10-PCS; 2020-08-31)
PROC: 0DJ08ZZ Inspection of Upper Intestinal Tract, Via Natural or Artificial Opening Endoscopic (ICD-10-PCS; principal; 2020-08-31 12:30)
PROC: 0B110F4 Bypass Trachea to Cutaneous with Tracheostomy Device, Open Approach (ICD-10-PCS; principal; 2020-08-31 12:30)
PROC: 0B9L8ZX Drainage of Left Lung, Via Natural or Artificial Opening Endoscopic, Diagnostic (ICD-10-PCS; 2020-09-03)
PROC: 0BC78ZZ Extirpation of Matter from Left Main Bronchus, Via Natural or Artificial Opening Endoscopic (ICD-10-PCS; 2020-09-03)
PROC: 3E033XZ Introduction of Vasopressor into Peripheral Vein, Percutaneous Approach (ICD-10-PCS; 2020-09-03)
PROC: 5A12012 Performance of Cardiac Output, Single, Manual (ICD-10-PCS; 2020-09-03)
DX: A40.3 Sepsis due to Streptococcus pneumoniae (principal); J13 Pneumonia due to Streptococcus pneumoniae; J80 Acute respiratory distress syndrome; R65.21 Severe sepsis with septic shock; N18.6 End stage renal disease; N17.0 Acute kidney failure with tubular necrosis; G93.41 Metabolic encephalopathy; K26.4 Chronic or unspecified duodenal ulcer with hemorrhage; K25.4 Chronic or unspecified gastric ulcer with hemorrhage; E43 Unspecified severe protein-calorie malnutrition; J69.0 Pneumonitis due to inhalation of food and vomit; E66.2 Morbid (severe) obesity with alveolar hypoventilation; Z68.43 Body mass index [BMI] 50.0-59.9, adult; J98.11 Atelectasis; I42.9 Cardiomyopathy, unspecified; E87.1 Hypo-osmolality and hyponatremia; J44.0 Chronic obstructive pulmonary disease with (acute) lower respiratory infection; B37.89 Other sites of candidiasis; D62 Acute posthemorrhagic anemia; A04.72 Enterocolitis due to Clostridium difficile, not specified as recurrent; J98.19 Other pulmonary collapse; J44.1 Chronic obstructive pulmonary disease with (acute) exacerbation; I50.20 Unspecified systolic (congestive) heart failure; Z99.2 Dependence on renal dialysis; I46.9 Cardiac arrest, cause unspecified; E83.42 Hypomagnesemia; Z20.828 Contact with and (suspected) exposure to other viral communicable diseases; K21.9 Gastro-esophageal reflux disease without esophagitis; I48.0 Paroxysmal atrial fibrillation; I27.20 Pulmonary hypertension, unspecified; E87.6 Hypokalemia; E87.5 Hyperkalemia; D69.6 Thrombocytopenia, unspecified; E03.9 Hypothyroidism, unspecified; E11.22 Type 2 diabetes mellitus with diabetic chronic kidney disease; G83.9 Paralytic syndrome, unspecified; K44.9 Diaphragmatic hernia without obstruction or gangrene; F41.1 Generalized anxiety disorder; J98.09 Other diseases of bronchus, not elsewhere classified; E83.51 Hypocalcemia; E83.39 Other disorders of phosphorus metabolism; E78.1 Pure hyperglyceridemia; R04.0 Epistaxis; Z90.710 Acquired absence of both cervix and uterus; Z87.01 Personal history of pneumonia (recurrent); Z86.19 Personal history of other infectious and parasitic diseases; Z83.3 Family history of diabetes mellitus; Z79.899 Other long term (current) drug therapy; Z79.890 Hormone replacement therapy; Z79.84 Long term (current) use of oral hypoglycemic drugs; Z91.012 Allergy to eggs; Z91.011 Allergy to milk products; Z79.01 Long term (current) use of anticoagulants; Z79.2 Long term (current) use of antibiotics; Z98.890 Other specified postprocedural states; Z82.3 Family history of stroke; Z82.49 Family history of ischemic heart disease and other diseases of the circulatory system
CPT/HCPCS: 31622; 31624; 31645; 36415; 36573; 36600; 43246; 43255; 71045; 74018; 80048; 80053; 80076; 80202; 81001; 82140; 82272; 82306; 82728; 82805; 83036; 83540; 83550; 83605; 83615; 83735; 84100; 84132; 84145; 84436; 84443; 84478; 84484; 85025; 85027; 85379; 85610; 85730; 86140; 86704; 86706; 86850; 86900; 86901; 86920; 87040; 87070; 87077; 87086; 87102; 87116; 87186; 87205; 87206; 87252; 87324; 87340; 87496; 87498; 87502; 87529; 87634; 87635; 87798; 88108; 88305; 89050; 90935; 92950; 93005; 93306; 94002; 94003; 94640; 96361; 96374; 99291